=== PATIENT | female | born 1945 | race Caucasian/White ===

== ENCOUNTER → 2017-10-25 10:23 | Outpatient (CLI) | payer MEDICARE, OTHER, SELFPAY ==
--- NOTE | 2017-10-25 | DI.MG.S_ITS ---
BILATERAL DIGITAL SCREENING MAMMOGRAM 3D/2D WITH CAD: 10/25/2017 CLINICAL: Routine screening. Comparison is made to exams dated: 01/06/2014 mammogram, 12/14/2006 mammogram, and 09/30/2005 mammogram - [facility]. The tissue of both breasts is heterogeneously dense. This may lower the sensitivity of mammography. Current study was also evaluated with a Computer Aided Detection (CAD) system. No significant masses, calcifications, or other findings are seen in either breast. There has been no significant interval change. IMPRESSION: NEGATIVE There is no mammographic evidence of malignancy. A 1 year screening mammogram is recommended. This exam was interpreted at Station ID: [id number]. NOTE: For mammograms, a report in lay terms will be sent to the patient. Approximately 15% of breast malignancies will not be visualized mammographically. In the management of a palpable breast mass, a negative mammogram must not discourage biopsy of a clinically suspicious lesion. Electronically Signed By: Juan an/javed:10/26/2017 17:07:42 letter sent: Normal Exam ACR BI-RADS Category 1: Negative [id number]
== END ==
PROVIDERS: Visit Provider Internal Medicine
DX: Z12.31 Encounter for screening mammogram for malignant neoplasm of breast (principal)
CPT/HCPCS: 77063; 77067

== ENCOUNTER → 2017-11-09 10:26 | Outpatient (CLI) | payer MEDICARE, OTHER, SELFPAY ==
[2017-11-09 11:52] LABS: Add Manual Diff / Slide Review NO; Basophils Percent Auto 0.4 % (0-2); Eosinophils Percent Auto 1.6 % (2-4); Hematocrit 42.3 % (36-46); Hemoglobin 13.8 g/dL (12.0-16.0); Lymphocytes Percent Auto 36.8 % (25-40); Mean Corpuscular HGB Conc 32.8 % (30-36); Mean Corpuscular Volume 91.6 fL (80-100); Monocytes Percent Auto 10.5 % (3-14); Neutrophils Absolute Auto 5600 /uL (3000-5900); Neutrophils Percent Auto 50.7 % (50-75); Platelet Count 180 X10^3/uL (150-400); Red Blood Cell Count 4.61 X10^6/uL (4.0-5.2); Red Cell Distribution Width 15.1 % (11.6-14.8); White Blood Cell Count 11.1 X10^3/uL (4.5-11.0)
[2017-11-09 12:00] LABS: Erythrocyte Sedimentation Rate 7 MM/HR (0-20)
[2017-11-09 12:21] LABS: Alanine Aminotransferase 29 IU/L (9-52); Albumin Globulin Ratio 1.8 (1.0-2.8); Alkaline Phosphatase 78 U/L (38-126); Aspartate Aminotransferase 23 IU/L (14-36); BUN Creatinine Ratio 15.6 (6-22); Bilirubin Total 0.5 mg/dL (0.2-1.3); Blood Urea Nitrogen 28 mg/dL (7-17); Carbon Dioxide 25 mmol/L (22-32); Chloride 109 mmol/L (98-107); Cholesterol 172 mg/dL (140-199); Estimated Glomerular Filt Rate 27.7 mL/min (>60); Globulin 2.2 g/dL (1.7-4.1); Glucose 80 mg/dL (80-110); HDL Cholesterol 53 mg/dL (40-60); HEMOLYSIS < 15 (0-50); LDL Cholesterol Calculated 71 mg/dL (<100); Potassium 4.2 mmol/L (3.4-5.1); Sodium 144 mmol/L (137-145); Total Protein 6.2 g/dL (6.3-8.2); Triglycerides 239 mg/dL (35-150)
[2017-11-09 12:27] LABS: C-Reactive Protein Quant < 0.5 mg/dL (<1.0)
[2017-11-09 12:41] LABS: Thyroid Stimulating Hormone 1.51 uIU/mL (0.47-4.68)
[2017-11-16 08:16] LABS: ANCA IGG N
== END ==
PROVIDERS: Visit Provider Internal Medicine
DX: M31.7 Microscopic polyangiitis (principal); I10 Essential (primary) hypertension; R60.9 Edema, unspecified; E78.00 Pure hypercholesterolemia, unspecified
CPT/HCPCS: 36415; 80053; 80061; 84443; 85025; 85651; 86140; 86255

== ENCOUNTER → 2018-07-23 15:52 | Outpatient (CLI) | payer MEDICARE, OTHER, SELFPAY ==
--- NOTE | 2018-07-23 15:55 | DI.RAD.S_ITS ---
PROCEDURE: XR LUMBAR SPINE MIN 4V INDICATIONS: low back pain TECHNIQUE: 5 views of the lumbar spine were acquired. COMPARISON: [facility], , L-SPINE 2-3 VIEWS, 02/13/2009, 14:44. FINDINGS: Bones: 5 nonrib-bearing vertebrae are present. There is normal bony alignment. No vertebral body compression fractures. No suspicious bony lesions. Degenerative disc disease is worsened from the comparison study of February of 2009. There is a greater degree of degenerative disc height reduction and desiccation also facet osteoarthritis from L3 inferiorly has further worsened. Anterolisthesis of L5 on S1 grade one has mildly worsened and is near grade 2. Wedge compression fracture at L4 is stable over time. There is a new superior endplate mild impaction fracture at L3 but age is indeterminate from 2008 forward. L2 shows also slight superior endplate impaction. There are moderately severe wedge compression fractures most prominent at L1 and present to a level slightly lesser degree at T12 and T11. Soft tissues: Overlying bowel gas pattern is normal. No suspicious soft tissue calcifications. Oblique images: No pars defects. IMPRESSION: Worsening degenerative disc disease and facet osteoarthritis, moderately severe over the lower half of the LS-spine. Anterolisthesis is near grade 2 at L5-S1 as a result in addition to the degenerative disc disease that has mildly worsened. Multiple compression fractures have developed since 2008 but their exact chronicity at this time is uncertain. Additionally, interval worsening of a previously present compression fracture could occur as cause of new low back pain. Therefore it may be warranted to obtain MR scanning or nuclear medicine bone scanning to determine whether any of these appears near-term new. Dictated by: Timoteo Ceballos M.D. on 07/23/2018 at 17:17 Approved by: Timoteo Ceballos M.D. on 07/23/2018 at 17:20
== END ==
PROVIDERS: PCP Internal Medicine; Visit Provider Physical Medicine & Rehabilitation
DX: M54.5 Low back pain (principal); M51.37 Other intervertebral disc degeneration, lumbosacral region; M47.817 Spondylosis without myelopathy or radiculopathy, lumbosacral region; M48.56XA Collapsed vertebra, not elsewhere classified, lumbar region, initial encounter for fracture; M48.54XA Collapsed vertebra, not elsewhere classified, thoracic region, initial encounter for fracture; M96.1 Postlaminectomy syndrome, not elsewhere classified; M43.17 Spondylolisthesis, lumbosacral region
CPT/HCPCS: 72110; 99213

== ENCOUNTER → 2018-08-09 08:08 | Outpatient (CLI) | payer MEDICARE, OTHER, SELFPAY ==
--- NOTE | 2018-08-09 08:10 | DI.MRI.S_ITS ---
PROCEDURE: MR LUMBAR SPINE WO CON INDICATIONS: Eval TECHNIQUE: Noncontrast sagittal T1 spin echo and T2 fast echo, sagittal STIR, axial T1 and T2 fast spin echo through the lumbar spine. In cases with scoliosis, additional coronal T2 fast spin echo may be performed. COMPARISON: [facility], MR, L-SPINE WITHOUT CONTRAST, 03/03/2009, 12:12. [facility], MR, L-SPINE WITHOUT CONTRAST, 07/23/2010, 8:36. [facility], MR, L-SPINE WITHOUT CONTRAST, 11/28/2015, 8:04. [facility], CR, XR LUMBAR SPINE MIN 4V, 07/23/2018, 16:01. FINDINGS: Image quality: This examination is limited by involuntary motion artifact. Images are repeated, with some improvement. Alignment and Curvature: There is minimal retrolisthesis seen at the L1-L2 level. Minimal anterolisthesis is seen at L3-L4 and L5-S1. Bone Marrow: Marrow is of normal overall signal. No acute vertebral body compression fractures. Anterior wedge deformities are seen involving the T11, T12, L1, L3, and L4 levels, without significant change from the priors. No abnormal STIR signal can be seen to suggest acute bone marrow edema to suggest an acute fracture. Spinal Cord: Conus medullaris terminates at the L1 level. Visualized cord demonstrates normal signal and size. Paraspinous Soft Tissues: No paravertebral masses. T11-T12: The disc height is well-preserved. Loss of disc signal is seen at this level. Mild to moderate disc bulge is seen. Moderate bilateral neural foraminal narrowing is seen. Moderate central canal narrowing is seen. When comparison is made with the prior examination, these findings are similar. T12-L1: The disc height is well-preserved. Loss of disc signal is seen at this level. Mild endplate irregularity can be seen. There is mild to moderate left-sided and no right-sided neural foraminal narrowing seen. No significant central canal narrowing is seen. When comparison is made with the prior examination, these findings are similar. L1-L2: The disc height is well-preserved. Loss of disc signal is seen at this level. Mild to moderate disc bulge is seen. Moderate to severe bilateral neural foraminal narrowing is seen. No significant central canal narrowing is seen. When comparison is made with the prior examination, these findings are similar. L2-L3: The disc height is well-preserved. Loss of disc signal is seen at this level. Mild to moderate disc bulge is seen. Moderate bilateral neural foraminal narrowing is seen. Mild to moderate to moderate disc bulge is seen. When comparison is made with the prior examination, these findings are similar. L3-L4: Mild loss of disc height is seen. Loss of disc signal is seen. Moderate disc bulge is seen, which is eccentric to the right side. There is moderate to severe bilateral neural foraminal narrowing seen. There is a degree of compression seen upon the exiting nerve roots. Moderate to severe central canal narrowing is seen. The degree of central canal narrowing is improved compared to 2016. L4-L5: Moderate loss of disc height is seen. Loss of disc signal is seen. Moderate to prominent disc bulge is seen, which is eccentric to the right. Moderate facet joint hypertrophy is seen. There is moderate left-sided and moderate to severe right-sided neural foraminal narrowing seen. There is a degree of compression seen upon the exiting right L4 nerve root. At least moderate central canal narrowing is seen. Stable from the prior study. L5-S1: The disc height is well-preserved. Loss of disc signal is seen at this level. Moderate disc bulge is seen, which is eccentric to the right. Moderate to prominent facet hypertrophy is seen, with associated signal within the facet joints themselves. There is severe bilateral neural foraminal narrowing seen. There is a degree of compression seen upon the exiting nerve roots. Moderate to severe central canal narrowing is seen. Stable from the prior study. IMPRESSION: Multiple levels of lumbar spine degenerative changes are seen, which are most prominent inferiorly. The degree of central canal narrowing at L3-L4 has improved compared to 2016. Otherwise, the degrees of degenerative change are considered to be stable. Several levels of anterior wedge deformities are seen, without acute features. Dictated by: Danny Lou M.D. on 08/09/2018 at 10:45 Approved by: Danny oLu M.D. on 08/09/2018 at 10:55
== END ==
PROVIDERS: PCP Internal Medicine; Visit Provider Physical Medicine & Rehabilitation
DX: M47.26 Other spondylosis with radiculopathy, lumbar region (principal); M47.27 Other spondylosis with radiculopathy, lumbosacral region; M48.061 Spinal stenosis, lumbar region without neurogenic claudication; M48.07 Spinal stenosis, lumbosacral region; M96.1 Postlaminectomy syndrome, not elsewhere classified
CPT/HCPCS: 72148; 99214

== ENCOUNTER 2018-08-18 09:58 | Emergency (ER) | payer MEDICARE, OTHER, SELFPAY ==
[2018-08-18 10:20] VITALS: BP 168/108; PULSE 93; RESP 22; TEMP 36.4; O2SAT 99
--- NOTE | 2018-08-18 10:43 | PC.NURSE ---
Pain and bruising to coccyx, states she fell hard on her tailbone and has history of compression fractures. Some pain to cervival spine as well upon palpation, c-collar placed. Laceration and bump to occiput, bleeding controlled.
--- NOTE | 2018-08-18 10:52 | DI.CT.S_ITS ---
PROCEDURE: CT HEAD/BRAIN WO CON INDICATIONS: fall on coumadin TECHNIQUE: Noncontrast 4.5 mm thick angled axial sections acquired from the foramen magnum to the vertex, with coronal and sagittal reformats. For radiation dose reduction, the following was used: automated exposure control, adjustment of mA and/or kV according to patient size. COMPARISON: [facility], MR, BRAIN WITHOUT CONTRAST, 03/28/2012, 13:14. FINDINGS: Image quality: Diagnostic. CSF spaces: Basal cisterns are patent. No extra-axial fluid collections. Ventricles are n mildly prominent with corresponding parenchymal volume loss. Brain: No midline shift. No intracranial masses or hemorrhage. Babin-white matter interface is normal. A small focus of low attenuation within the left basal ganglia may represent prominent perivascular space versus prior lacunar infarct. Moderate-sized areas of low-attenuation are seen within the periventricular and deep white matter of the supratentorial brain. Skull and face: Calvarium and visualized facial bones are intact, without suspicious lesions. Sinuses: Visualized sinuses and mastoids are clear. IMPRESSION: 1. No acute intracranial hemorrhage. 2. Matter chronic small vessel ischemic changes and parenchymal volume loss. Dictated by: Vincent Bourne M.D. on 08/18/2018 at 10:23 Approved by: Vincent Bourne M.D. on 08/18/2018 at 10:26
--- NOTE | 2018-08-18 10:52 | DI.CT.S_ITS ---
PROCEDURE: CT CERVICAL SPINE WO CON INDICATIONS: fall on coumadin TECHNIQUE: Noncontrast 3 mm thick sections acquired from the skull base to the T4 level. Sagittal and coronal reformats were then constructed. For radiation dose reduction, the following was used: automated exposure control, adjustment of mA and/or kV according to patient size. COMPARISON: [facility], THORACIC SPINE 2 VIEWS, 01/19/2017, 15:08. FINDINGS: Image quality: Diagnostic. Bones: The craniocervical, atlantoaxial, and cervicothoracic junctions are well visualized and the alignment through these regions are well-maintained. There is no acute fracture or dislocation of the cervical spine. No suspicious osseous lesions are present. The vertebral body heights throughout the cervical spine are well-maintained. There is slight anterior wedging identified involving the T4 vertebral body, which is not adequately evaluated, but appears to be chronic in nature. The bone mineralization is slightly decreased. Mild to moderate multilevel degenerative changes of the cervical spine are identified. Soft tissues: Prevertebral soft tissues are normal in thickness. No paravertebral hematomas. No apical pneumothoraces. Aortic and carotid artery atherosclerosis is present. IMPRESSION: 1. No acute fractures of the cervical spine. 2. Mild to moderate degenerative changes of the cervical spine. 3. Subtle age-indeterminate T4 compression deformity is likely chronic. Please correlate clinically. Dictated by: Vincent Bourne M.D. on 08/18/2018 at 10:26 Approved by: Vincent Bourne M.D. on 08/18/2018 at 10:33
--- NOTE | 2018-08-18 10:52 | DI.RAD.S_ITS ---
PROCEDURE: XR LUMBAR SPINE 2-3V INDICATIONS: fall pain TECHNIQUE: 3 views of the lumbar spine were acquired. COMPARISON: [facility], CR, XR LUMBAR SPINE MIN 4V, 07/23/2018, 16:01. FINDINGS: Bones: There continues to be compression deformities involving the T11, T12, L1, and L4 vertebral bodies. The degree of the vertebral height loss has not significantly changed in the interim. No acute fractures or no fractures are evident. No suspicious osseous lesions are present. Moderate to severe multilevel degenerative changes of the lumbar spine have not significantly progressed. Soft tissues: A few borderline prominent air-filled small bowel loops are seen within the midabdomen. Clips are seen within the right upper quadrant, suggesting prior cholecystectomy. Postsurgical changes related to right hip arthroplasty are present. There is aortic atherosclerosis. No suspicious soft tissue calcifications. IMPRESSION: 1. Unchanged compression deformities of the thoracolumbar spine, as described. No acute fracture. 2. Moderate to severe degenerative changes of the lumbar spine. 3. Borderline small bowel dilatation may represent ileus. Please correlate clinically. Dictated by: Vincent Bourne M.D. on 08/18/2018 at 10:34 Approved by: Vincent Bourne M.D. on 08/18/2018 at 10:37
--- NOTE | 2018-08-18 10:54 | PC.NURSE ---
bruise to coxxyx and small skin tear bleeding controlled to left shoulder/upper back.
--- NOTE | 2018-08-18 10:59 | ED_ITS ---
HPI - Head Injury General Chief complaint: Head Injury Stated complaint: fell and hit head, has gash Time Seen by Provider: 08/18/18 10:37 Source: patient Mode of arrival: wheelchair Limitations: no limitations History of Present Illness HPI Narrative: Patient is a 72-year-old female who presents with ground level fall on Coumadin last night. She has swelling in her legs at baseline. She was walking fell backwards hitting her head on a dresser. No loss of consciousness. She has chronic neck pain can't really tell if it is worse. She has no numbness or tingling. She does have some back pain more in her lumbar left area. No nausea. MD Complaint: head injury Arrival Conditions: other (Collar placed in ED) Mechanism of Injury: fall Place: home Loss of Consciousness: no Location of injury: occipital Severity: mild Related Data Home Medications Medication Instructions Recorded Confirmed simvastatin [Zocor] 10 mg PO HS #0 03/12/12 08/09/18 acetaminophen 500 mg tablet 500 mg PO Q6H PRN 10/09/17 08/09/18 carvedilol 6.25 mg tablet 6.25 mg PO BID 10/09/17 08/09/18 levofloxacin 500 mg tablet 500 mg PO DAILY 10/09/17 08/09/18 levothyroxine 100 mcg capsule 100 mcg PO DAILY 10/09/17 08/09/18 omeprazole 20 mg capsule,delayed 20 mg PO DAILY 10/09/17 08/09/18 release ondansetron HCl 4 mg tablet 4 mg PO TID PRN 10/09/17 08/09/18 polyethylene glycol 3350 17 gram 17 gram PO DAILY 10/09/17 08/09/18 oral powder packet prednisone 5 mg tablet 5 mg PO DAILY 10/09/17 08/09/18 ranitidine 150 mg capsule 300 mg PO DAILY 10/09/17 08/09/18 topiramate XR 25 mg 50 mg PO DAILY 10/09/17 08/09/18 capsule,extended release 24 hr warfarin 1 mg tablet 2 mg PO DAILY 10/09/17 08/09/18 cholecalciferol (vitamin D3) 1,000 1,000 unit PO DAILY 07/13/18 08/09/18 unit capsule warfarin 1 mg tablet 1 mg PO DAILY 07/13/18 08/09/18 furosemide 40 mg tablet 20 mg PO DAILY PRN 08/09/18 08/09/18 Allergies Allergy/AdvReac Type Severity Reaction Status Date / Time amoxicillin [AMOXICILLIN] Allergy Severe rash and Verified 08/09/18 09:41 diarrhea oxybutynin Allergy Severe tongue Verified 08/09/18 09:41 swells Sulfa (Sulfonamide Allergy Severe fever and Verified 08/09/18 09:41 Antibiotics) rash [SULFA (SULFONAMIDE ANTIBIOTICS)] NSAIDS (Non-Steroidal Allergy Unknown Verified 08/09/18 09:41 Anti-Inflamma [NSAIDS (NON-STEROIDAL ANTI-INFLAMMA] cephalexin Allergy rash Verified 08/09/18 09:41 codeine [CODEINE] AdvReac Mild headache Verified 08/09/18 09:41 duloxetine [From CYMBALTA] AdvReac Mild vomiting Verified 08/09/18 09:41 morphine [MORPHINE] AdvReac Mild vomiting Verified 08/09/18 09:41 nitrofurantoin AdvReac Mild vomiting Verified 08/09/18 09:41 [From MACROBID] carisoprodol AdvReac Verified 08/09/18 09:41 piroxicam [From Feldene] AdvReac Verified 08/09/18 09:41 tolterodine AdvReac Verified 08/09/18 09:41 Review of Systems Review of Systems ROS Unobtainable: All systems reviewed & are unremarkable except as noted in HPI and below Constitutional Denies chills, Denies fever(s), Denies lethargy and Denies weakness Eyes Denies change in vision, Denies eye discharge, Denies irritation and Denies loss of vision ENT Ears, Nose, Mouth, and Throat: Denies change in voice, Denies vertigo, Denies dizziness, Reports neck pain and Denies sore throat Cardiovascular Denies chest pain, Denies irregular heart rhythm, Denies lightheadedness, Denies palpitations, Denies dyspnea, Denies dyspnea on exertion and Denies orthopnea Respiratory Denies cough, Denies dyspnea, Denies dyspnea on exertion and Denies wheezing Gastrointestinal Gastrointestinal: Denies abdominal pain, Denies change in bowel habits, Denies diarrhea, Denies nausea and Denies vomiting Musculoskeletal Reports back pain and Reports neck pain Integumentary/Breasts Denies pruritus, Denies erythema, Denies rash and Denies wounds Comments: Contusion swelling parietal area Neurologic Denies confusion, Denies vertigo, Denies dizziness, Denies loss of vision and Denies weakness Comments: No LOC Psychiatric Denies confusion Endocrine Denies palpitations Allergic/Immunologic Denies wheezing [facility] Medical History DVT (deep venous thrombosis) (Acute) Social History Smoking Status: Unknown if ever smoked Social History Smoking Status: Unknown if ever smoked Exam Initial Vital Signs Initial Vital Signs: Vital Signs Temperature 97.6 F 08/18/18 10:20 Pulse Rate 93 H 08/18/18 10:20 Respiratory Rate 22 08/18/18 10:20 Blood Pressure 168/108 H 08/18/18 10:20 Pulse Oximetry 99 08/18/18 10:20 GENERAL: Alert pleasant elderly no acute distress HEENT: Head contusion left parietal area-no laceration,EOMI, pupils reactive, face symmetric NECK: Mild tenderness--placed in ED CARDIOVASCULAR: Regular rate and rhythm without murmurs, rubs or gallops. RESPIRATORY: Breath sounds equal bilaterally, no wheezes rales or rhonchi. ABDOMEN: Soft, nontender. Normoactive bowel sounds all 4 quadrants. No guarding or rebound. EXTREMITIES: Normal range of motion, no lower extremity swelling bilaterally nonpitting at baseline per patient and have NEUROLOGICAL: Alert and oriented x4.Normal gait and speech. Cranial nerves II through XII grossly intact. Technical Writing Lead/Mgr strength equal bilaterally SKIN: Warm, dry, no laceration, no petechiae, no rashes or lesions. Course Orders Ordered: ED Orders 08/18/18 10:52 CT cervical spine wo con Stat CT head/brain wo con Stat XR lumbar spine 2-3V Stat Discontinued Medications Acetaminophen (Tylenol) 650 mg PO NOW ONE Stop: 08/18/18 10:53 Last Admin: 08/18/18 11:33 Dose: 650 mg Vital Signs - 8 hr 08/18/18 11:28 08/18/18 12:16 Pulse Rate 84 66 Respiratory Rate 29 H 16 Blood Pressure 139/76 Blood Pressure [Left Arm] 163/89 H Pulse Oximetry 98 98 MDM - Head Injury Imaging Data CT scan - head: Radiologist's impression: PROCEDURE: CT HEAD/BRAIN WO CON INDICATIONS: fall on coumadin TECHNIQUE: Noncontrast 4.5 mm thick angled axial sections acquired from the foramen magnum to the vertex, with coronal and sagittal reformats. For radiation dose reduction, the following was used: automated exposure control, adjustment of mA and/or kV according to patient size. COMPARISON: [facility], , BRAIN WITHOUT CONTRAST, 03/28/2012, 13:14. FINDINGS: Image quality: Diagnostic. CSF spaces: Basal cisterns are patent. No extra-axial fluid collections. Ventricles are n mildly prominent with corresponding parenchymal volume loss. Brain: No midline shift. No intracranial masses or hemorrhage. Babin-white matter interface is normal. A small focus of low attenuation within the left basal ganglia may represent prominent perivascular space versus prior lacunar infarct. Moderate- sized areas of low-attenuation are seen within the periventricular and deep white matter of the supratentorial brain. Skull and face: Calvarium and visualized facial bones are intact, without suspicious lesions. Sinuses: Visualized sinuses and mastoids are clear. IMPRESSION: 1. No acute intracranial hemorrhage. 2. Matter chronic small vessel ischemic changes and parenchymal volume loss. Dictated by: Vincent Bourne M.D. on 08/18/2018 at 10:23 ct cervical: Radiologist's impression: PROCEDURE: CT CERVICAL SPINE WO CON INDICATIONS: fall on coumadin TECHNIQUE: Noncontrast 3 mm thick sections acquired from the skull base to the T4 level. Sagittal and coronal reformats were then constructed. For radiation dose reduction, the following was used: automated exposure control, adjustment of mA and/or kV according to patient size. COMPARISON: [facility], , THORACIC SPINE 2 VIEWS, 01/19/2017, 15:08. FINDINGS: Image quality: Diagnostic. Bones: The craniocervical, atlantoaxial, and cervicothoracic junctions are well visualized and the alignment through these regions are well-maintained. There is no acute fracture or dislocation of the cervical spine. No suspicious osseous lesions are present. The vertebral body heights throughout the cervical spine are well- maintained. There is slight anterior wedging identified involving the T4 vertebral body, which is not adequately evaluated, but appears to be chronic in nature. The bone mineralization is slightly decreased. Mild to moderate multilevel degenerative changes of the cervical spine are identified. Soft tissues: Prevertebral soft tissues are normal in thickness. No paravertebral hematomas. No apical pneumothoraces. Aortic and carotid artery atherosclerosis is present. IMPRESSION: 1. No acute fractures of the cervical spine. 2. Mild to moderate degenerative changes of the cervical spine. 3. Subtle age-indeterminate T4 compression deformity is likely chronic. Please correlate clinically. Dictated by: Vincent Bourne M.D. on 08/18/2018 at 10:26 xr lumbar: Radiologist's impression: PROCEDURE: XR LUMBAR SPINE 2-3V INDICATIONS: fall pain TECHNIQUE: 3 views of the lumbar spine were acquired. COMPARISON: [facility], , XR LUMBAR SPINE MIN 4V, 07/23/2018, 16:01. FINDINGS: Bones: There continues to be compression deformities involving the T11, T12, L1, and L4 vertebral bodies. The degree of the vertebral height loss has not significantly changed in the interim. No acute fractures or no fractures are evident. No suspicious osseous lesions are present. Moderate to severe multilevel degenerative changes of the lumbar spine have not significantly progressed. Soft tissues: A few borderline prominent air-filled small bowel loops are seen within the midabdomen. Clips are seen within the right upper quadrant, suggesting prior cholecystectomy. Postsurgical changes related to right hip arthroplasty are present. There is aortic atherosclerosis. No suspicious soft tissue calcifications. IMPRESSION: 1. Unchanged compression deformities of the thoracolumbar spine, as described. No acute fracture. 2. Moderate to severe degenerative changes of the lumbar spine. 3. Borderline small bowel dilatation may represent ileus. Please correlate clinically. Dictated by: Vincent Bourne M.D. on 08/18/2018 at 10:34 Discharge Plan Departure Patient Disposition: Home Clinical Impression: Closed head injury Qualifiers: Encounter type: initial encounter Qualified Code(s): S09.90XA - Unspecified injury of head, initial encounter Discharge Date/Time: 08/18/18 11:55 Interventions: ED Discharge Assessment Last Done: 08/18/18 12:16 Instructions: DI for Closed Head Injury Activity Restrictions/Additional Instructions: *You have been diagnosed with closed head injury *What to do: Monitor for worsening head injuries symptoms. Light activity is encouraged *Continue to take medications as directed Tylenol 500 mg every 6 hours as needed for pain *Follow up with your primary care provider in 2-3 days *Return to ER if you should have increasing confusion, persistent vomiting, weakness, facial drooping or any new, worsening or concerning symptoms Prescriptions: No Action simvastatin [Zocor] 20 MG tablet 10 mg PO HS Qty: 0 RF: 0 warfarin 1 mg tablet 1 mg PO DAILY RF: 0 cholecalciferol (vitamin D3) 1,000 unit capsule 1,000 unit PO DAILY RF: 0 carvedilol 6.25 mg tablet 6.25 mg PO BID RF: 0 polyethylene glycol 3350 17 gram powder in packet 17 gram PO DAILY RF: 0 ondansetron HCl [Zofran] 4 mg tablet 4 mg PO TID PRNRF: 0 prednisone 5 mg tablet 5 mg PO DAILY RF: 0 acetaminophen [Tylenol Extra Strength] 500 mg tablet 500 mg PO Q6H PRNRF: 0 omeprazole 20 mg capsule,delayed release(DR/EC) 20 mg PO DAILY RF: 0 ranitidine HCl 150 mg capsule 300 mg PO DAILY RF: 0 warfarin [Coumadin] 1 mg tablet 2 mg PO DAILY RF: 0 levofloxacin 500 mg tablet 500 mg PO DAILY RF: 0 levothyroxine 100 mcg capsule 100 mcg PO DAILY RF: 0 topiramate 25 mg capsule,extended release 24hr 50 mg PO DAILY RF: 0 furosemide 40 mg tablet 20 mg PO DAILY PRNRF: 0 Referrals: Jamir Garcia MD [Primary Care Provider] -
[2018-08-18 11:28] VITALS: BP 163/89; PULSE 84; RESP 29; O2SAT 98
[2018-08-18] MEDS: ACETAMINOPHEN 325 MG TABLET 650 MG PO (11:33)
[2018-08-18 12:16] VITALS: BP 139/76; PULSE 66; RESP 16; O2SAT 98
--- NOTE | 2018-08-18 12:20 | PC.NURSE ---
1135 small 0.25cm laceration to back of head in center of 4cm lump/contusion. NO repair to be done per Hiren RICHARD. Cleansed with water at this time.
== END 2018-08-18 11:55 | disposition home or self-care (01) ==
PROVIDERS: Emergency Provider Emergency Medicine; PCP Internal Medicine
DX: S00.83XA Contusion of other part of head, initial encounter (principal); S01.81XA Laceration without foreign body of other part of head, initial encounter; S30.0XXA Contusion of lower back and pelvis, initial encounter; M54.2 Cervicalgia; W19.XXXA Unspecified fall, initial encounter; Z79.01 Long term (current) use of anticoagulants
CPT/HCPCS: 70450; 72100; 72125; 99283; 99284

== ENCOUNTER → 2018-09-04 14:55 | Outpatient (CLI) | payer MEDICARE, OTHER, SELFPAY ==
[2018-09-04 16:11] LABS: Blood Urea Nitrogen 32 mg/dL (7-17); Estimated Glomerular Filt Rate 24.4 mL/min (>60)
--- NOTE | 2018-09-11 15:27 | PC.NURSE ---
Patient requested per telephone to know if her lab results for BUN and Crea were in. This nurse confirmed for her that results are on record and that she should speak with Dr. Garcia about the results at her appt. tomorrow.
== END ==
PROVIDERS: PCP Internal Medicine; Visit Provider Internal Medicine
DX: M81.0 Age-related osteoporosis without current pathological fracture (principal)
CPT/HCPCS: 36415; 82565; 84520

== ENCOUNTER → 2018-09-26 11:43 | Outpatient (CLI) | payer MEDICARE, OTHER, SELFPAY ==
[2018-09-26 13:34] LABS: BUN Creatinine Ratio 18.9 (6-22); Blood Urea Nitrogen 36 mg/dL (7-17); Estimated Glomerular Filt Rate 25.9 mL/min (>60)
== END ==
PROVIDERS: PCP Internal Medicine; Visit Provider Internal Medicine
DX: M81.0 Age-related osteoporosis without current pathological fracture (principal)
CPT/HCPCS: 36415; 82565; 84520

== ENCOUNTER → 2018-10-17 16:19 | Outpatient (CLI) | payer MEDICARE, OTHER, SELFPAY ==
--- NOTE | 2018-10-17 16:26 | DI.US.S_ITS ---
PROCEDURE: US PERIPH VENOUS LOW EXTREM RT INDICATIONS: PAIN IN RIGHT LEG TECHNIQUE: Real-time imaging, as well as color and pulse Doppler interrogation, were performed of the lower extremity deep veins from the inguinal ligament to the popliteal fossa. COMPARISON: None. FINDINGS: The common femoral, femoral and popliteal veins are normally compressible, and free of intraluminal thrombus. Color and pulse Doppler demonstrate normal phasic intraluminal flow. There is normal augmentation response to distal compression maneuver. IMPRESSION: No evidence of DVT, right lower extremity Dictated by: Brandon Pichardo M.D. on 10/17/2018 at 17:33 Approved by: Brandon Pichardo M.D. on 10/17/2018 at 17:33
== END ==
PROVIDERS: PCP Internal Medicine; Visit Provider Physician Assistant
DX: M79.604 Pain in right leg (principal)
CPT/HCPCS: 93971

== ENCOUNTER 2018-11-29 10:30 | Outpatient (RCR) | payer MEDICARE, OTHER, SELFPAY ==
--- NOTE | 2018-10-17 12:10 | PT.OIE ---
Current Diagnoses Spondylolisthesis, lumbar region (10/10/18) Age-related osteoporosis without current pathological fracture (10/10/18) Postlaminectomy syndrome, not elsewhere classified (10/10/18) Past Medical History (Last Reviewed 08/18/18 @ 10:58 by Cora Maradiaga DO) DVT (deep venous thrombosis) (Acute) Provider Visit Care Team Role Provider Type Jamir Garcia MD Primary Care Provider Physician Specialty: Internal Medicine Address: [address] [place] [address], [id number] Email: Romie Darling DO Attending Provider Physician Specialty: Physiatry Pain Management Address: [address] [place] [address], [id number] Email: Physical Therapy Initial Evaluation PT-OP-A Visit Information Start: 10/10/18 11:38 Freq: Status: Active Protocol: Document 10/10/18 11:36 [facility] (Rec: 10/17/18 11:51 [facility] [id number]) Out-Patient Physical Therapy Visit Information Visit Information Visit Type Initial Evaluation Visit Note 72 year old female who underwent a lumbar laminectomy 1 year ago at the L3-4 level due to spondylothesis. She is experiencing continued pain that is severe and intermittent. She has difficulty with ADL's due to pain and pain prevents her from walking even short distances. She has a history of a right sided hip replacement and feels as if her right side gives out on her. She also presents with significant edema right greater than left LE Visit Start Time 11:30 Visit Stop Time 12:15 Total Visit Minutes 45 Visit Number 1 Number of AUTOMOTIVE PARTS ADVISOR Visits 0 Evaluation Information Evaluation Date 10/10/18 PT-OP-B Current Condition Start: 10/10/18 11:38 Freq: Status: Active Protocol: Document 10/10/18 11:38 [facility] (Rec: 10/10/18 11:48 [facility] [id number]) Current Condition History of Current Condition History of Current Condition Hx of osteoporesis and lumbar laminectomy at L3-4 one year ago. No history of injury but notes she has weakness in her low back with low tolerance for activity due to pain. She uses her fww all the time for support due to poor blaance. 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 She is on a lot of medications including prednisone for over 10 years ago. Hx of right hip replacement 7-8 years ago. hx of fibromyalgia Pt has increased pain with ADL's. Pain at rest in recliner is 1- 2/10 but with activites such as making the bed or unloading the dump truck driver her pain increased to 6-7/10 Treatment Goals Patient/Caregiver Goals Pt would like to progress to using her cane PT-OP-J Posture/Palpation/Skin Start: 10/17/18 11:35 Freq: Status: Active Protocol: Document 10/10/18 11:36 [facility] (Rec: 10/17/18 11:51 [facility] [id number]) Posture Evaluation Position Standing Evaluation View Posterior Head/C-Spine Posture Flexed T-Spine Posture Increased Kyphosis L-Spine Posture Increased Lordosis Weight Distribution Weight Shifted Left Palpation Assessment Location Two Palpation Location LE calf and carrasco region Palpation Findings Edema Palpation Details pitting edema right greater than left in the LE ankle to knee One Palpation Location lumbar paraspinals Palpation Findings Soft Tissue Tightness Spasm PT-OP-K Range of Motion Start: 10/17/18 11:35 Freq: Status: Active Protocol: Document 10/10/18 11:36 [facility] (Rec: 10/17/18 11:51 [facility] [id number]) Lumbar Spine Range of Motion Lumbar Spine Active Testing Position Sitting Flexion 20 Extension 0 Rotation Left 15 Rotation Right 15 Lateral Flexion Left 10 Lateral Flexion Right 10 ROM Limitations Soft Tissue Tightness Muscle Weakness Muscle Tone Pain Comments very limited in lumbar spine ROM, ROM assessed in sitting at the patient is off balance in a standing position Hip Goniometric Range of Motion Hip Left Hip ROM WFL No Testing Position Supine Flexion w/Knee Flexed 100 Straight Leg Raise 70 Right Hip ROM WFL No Testing Position Supine Flexion w/Knee Flexed 90 Straight Leg Raise 60 PT-OP-M Strength Start: 10/17/18 11:35 Freq: Status: Active Protocol: Document 10/10/18 11:36 [facility] (Rec: 10/17/18 11:51 [facility] [email or web address]) Trunk Strength Trunk Manual Muscle Testing Testing Position Supine Flexion 2+ Poor+ Core Stabilization poor core stabilization and Nina does not have the ability to provide a transverse abdominal facilitation Hip Strength Hip Manual Muscle Testing Right Flexion (L2) 2+ Poor+ Extension (S1) 2+ Poor+ Abduction 2+ Poor+ External Rotation 2+ Poor+ Internal Rotation 2+ Poor+ Left Flexion (L2) 3 Fair Extension (S1) 3 Fair Abduction 3 Fair External Rotation 3 Fair Internal Rotation 3 Fair Knee Strength Knee Manual Muscle Testing Right Flexion (S2) 2+ Poor+ Extension (L3) 2+ Poor+ Reason Not Measured Muscle Tone Comments unable to perform a quad set on the right PT-OP-Q Treatments Start: 10/17/18 11:35 Freq: Status: Active Protocol: Document 10/10/18 11:36 [facility] (Rec: 10/17/18 11:51 [facility] [id number]) Self-Care/Home Management Treatment Education Patient Education Body Mechanics Joint Protection Pain Management Other Education pt also given instructions for low back pain relief in her low back by laying on her back with her legs up over a bolster and ankle pumping for LE edema PT-OP-T Assessment and Plan Start: 10/17/18 11:35 Freq: Status: Active Protocol: Document 10/10/18 11:36 [facility] (Rec: 10/17/18 11:51 [facility] [id number]) Physical Therapy Assessment Rehab Potential Rehabilitation Potential Good Evaluation Complexity Number of Personal Factors/Comorbidities 1-2 Number of Body Systems Impaired 3 Clinical Presentation at Evaluation Evolving Impairments Impairments Activity Tolerance Balance Pain Posture ROM Soft Tissue Mobility Strength Tone Other Impairments Limited ADL's due to poor balance, strength, mobility Goals Five Impairment Nina is unable to get herself up off the floor Dry Transfer Worker Goal (LTG) Nina demonstrates the ability to transfer herself safely up off the floor LTG Duration 8 weeks Four Impairment pain 7-8/10 with ADL's such as unloading the dump truck driver or making a bed Dry Transfer Worker Goal (LTG) Decrease pain with ADL's from 7-8/10 to 4-6/10 and Nina is educated in proper body mechanics for these activities to assist in decreasing her pain LTG Duration 8 weeks Three Impairment Nina has poor core activation and is unable to facilitate her TA Short Term Goal (STG) Nina is able to recruit her Transverse abdominal muscle for improved support of her core in a supine position STG Duration 4 weeks Dry Transfer Worker Goal (LTG) Nina is able to recruit her abdominal muscles with both a SLR and sit to stand transitional activity to improve lumbar support and decrease pain with transitional activities LTG Duration 8 weeks Two Impairment poor lumbar spine ROM and mobility Lumbar spine flexion limited to 20 deg Dry Transfer Worker Goal (LTG) Nina is able to improve her lumbar spine ROM tolerance for lumbar flexion by 10 degrees or greater to tolerate a home stretching program and decrease pain LTG Duration 8 weeks plus One Impairment LE weakness Right > Left Short Term Goal (STG) Stephanie is able to recruit her right quadriceps and perform a straight leg raise on the right LE STG Duration 4 weeks Fci Goal (LTG) With strengthening exercises Rhea is able to put weight through her right LE and perform a sit-stand with even weight bearing LTG Duration 8 weeks plus Assessment Summary Assessment Nina is referred to Physical therapy with continued LBP following a lumbar laminectomy at L3-4 one year ago. She has a hx of osteoporesis. No history of lumbar injury but notes she has had weakness in her low back with low tolerance for activity due to pain. She uses her fww all the time for support due to poor balance. 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 She is on a lot of medications including prednisone for over 10 years ago. Hx of right hip replacement 7-8 years ago. hx of fibromyalgia Pt has increased pain with ADL's. Pain at rest in recliner is 1- 2/10 but with activites such as making the bed or unloading the dump truck driver her pain increased to 6-7/10 Examination today was limited due to poor tolerance for most positions and for most activities. She sat for her ROM measurements and she is very limited in lumbar ROM. She is most limited in lumbar flexion and she tends to arch her lumbar spine for her neutral posture. With standing she is shifted onto her left leg and it is difficult for her to take weight onto the right LE. MMT reveals 2+/5 strength for the right hip and generally 3/5 strength left side. She also presents with significant edema in the right L left LE from ankles to the knee. Her goals include improving her tolerance for ADL's and being able to get up off the floor. Treatment will focus on transfer training, strengthening, body mechanics, ROM and functional positioning and activities. Physical Therapy Plan Frequency and Duration Frequency of Treatment 2x/Week Duration of Treatment 8 weeks Plan of Care Start Date 10/10/18 Plan of Care End Date 12/05/18 Therapeutic Interventions Therapeutic Interventions Balance Training Gait Training Home Exercise Program Neuromuscular Re-education Patient/Caregiver Education Self-Care/Home Management Soft Tissue Mobilization Therapeutic Exercises Next Visit Focus/Plan Next Note Type Treatment Note Next Visit Plan Begin on the recumbent bike next visit and begin a gentle strengthening program for the LE and core
--- NOTE | 2018-10-29 15:54 | PT.OTN ---
Current Diagnoses Spondylolisthesis, lumbar region (10/29/18) Age-related osteoporosis without current pathological fracture (10/29/18) Postlaminectomy syndrome, not elsewhere classified (10/29/18) Physical Therapy Treatment Note PT-OP-A Visit Information Start: 10/10/18 11:38 Freq: Status: Active Protocol: Document 10/29/18 14:18 LRN (Rec: 10/29/18 15:05 LRN [id number]) Out-Patient Physical Therapy Visit Information Visit Information Visit Type Treatment Note Visit Note 72 year old female who underwent a lumbar laminectomy 1 year ago at the L3-4 level due to spondylothesis. She is experiencing continued pain that is severe and intermittent. She has difficulty with ADL's due to pain and pain prevents her from walking even short distances. She has a history of a right sided hip replacement and feels as if her right side gives out on her. She also presents with significant edema right greater than left LE Visit Start Time 14:18 Visit Stop Time 15:00 Total Visit Minutes 42 Visit Number 2 Number of INSIDE SALES ACCOUNT REPRESENTATIVE Visits 0 Evaluation Information Evaluation Date 10/10/18 Precautions Precautions Autoimmune disease ( microscopic polyangiitis) Lumbar lami 1 yr ago R BRANDON PT-OP-B Current Condition Start: 10/10/18 11:38 Freq: Status: Active Protocol: Document 10/10/18 11:38 AMH (Rec: 10/10/18 11:48 AMH [id number]) Current Condition History of Current Condition History of Current Condition Hx of osteoporesis and lumbar laminectomy at L3-4 one year ago. No history of injury but notes she has weakness in her low back with low tolerance for activity due to pain. She uses her fww all the time for support due to poor blaance. 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 She is on a lot of medications including prednisone for over 10 years ago. Hx of right hip replacement 7-8 years ago. hx of fibromyalgia Pt has increased pain with ADL's. Pain at rest in recliner is 1- 2/10 but with activites such as making the bed or unloading the investigations consultant her pain increased to 6-7/10 Treatment Goals Patient/Caregiver Goals Pt would like to progress to using her cane PT-OP-C Subjective Start: 10/10/18 11:38 Freq: Status: Active Protocol: Document 10/29/18 14:18 LRN (Rec: 10/29/18 15:05 LRN [id number]) OP-PT Subjective Patient Comments Patient Comments Got an infection in the leg a few days after evaluation, so has been on her back with legs up. Back pain is not worse. PT-OP-J Posture/Palpation/Skin Start: 10/17/18 11:35 Freq: Status: Active Protocol: Document 10/10/18 11:36 AMH (Rec: 10/17/18 11:51 AMH [email or web address]) Posture Evaluation Position Standing Evaluation View Posterior Head/C-Spine Posture Flexed T-Spine Posture Increased Kyphosis L-Spine Posture Increased Lordosis Weight Distribution Weight Shifted Left Palpation Assessment Location Two Palpation Location LE calf and carrasco region Palpation Findings Edema Palpation Details pitting edema right greater than left in the LE ankle to knee One Palpation Location lumbar paraspinals Palpation Findings Soft Tissue Tightness Spasm PT-OP-K Range of Motion Start: 10/17/18 11:35 Freq: Status: Active Protocol: Document 10/10/18 11:36 AMH (Rec: 10/17/18 11:51 AMH [email or web address]) Lumbar Spine Range of Motion Lumbar Spine Active Testing Position Sitting Flexion 20 Extension 0 Rotation Left 15 Rotation Right 15 Lateral Flexion Left 10 Lateral Flexion Right 10 ROM Limitations Soft Tissue Tightness Muscle Weakness Muscle Tone Pain Comments very limited in lumbar spine ROM, ROM assessed in sitting at the patient is off balance in a standing position Hip Goniometric Range of Motion Hip Left Hip ROM WFL No Testing Position Supine Flexion w/Knee Flexed 100 Straight Leg Raise 70 Right Hip ROM WFL No Testing Position Supine Flexion w/Knee Flexed 90 Straight Leg Raise 60 PT-OP-M Strength Start: 10/17/18 11:35 Freq: Status: Active Protocol: Document 10/10/18 11:36 AMH (Rec: 10/17/18 11:51 AMH [email or web address]) Trunk Strength Trunk Manual Muscle Testing Testing Position Supine Flexion 2+ Poor+ Core Stabilization poor core stabilization and Nina does not have the ability to provide a transverse abdominal faciliation Hip Strength Hip Manual Muscle Testing Right Flexion (L2) 2+ Poor+ Extension (S1) 2+ Poor+ Abduction 2+ Poor+ External Rotation 2+ Poor+ Internal Rotation 2+ Poor+ Left Flexion (L2) 3 Fair Extension (S1) 3 Fair Abduction 3 Fair External Rotation 3 Fair Internal Rotation 3 Fair Knee Strength Knee Manual Muscle Testing Right Flexion (S2) 2+ Poor+ Extension (L3) 2+ Poor+ Reason Not Measured Muscle Tone Comments unable to perform a quad set on the right PT-OP-Q Treatments Start: 10/17/18 11:35 Freq: Status: Active Protocol: Document 10/29/18 14:18 LRN (Rec: 10/29/18 15:05 LRN [id number]) Therapeutic Exercises Supine Exercises KTC stretch Supine Exercise Name Semi-reclined KTC stretch ( limited stretch to the R side) Side bilateral Reps/Minutes 6 x 10 sec holds Comments Pt on MH during ex Gluteal strengthening Supine Exercise Name Semi-reclined Buttock squeezes Side bilateral Reps/Minutes 10x Comments Pt on MH during ex SAQ Supine Exercise Name Semi-reclined SAQ Side bilateral Reps/Minutes 8 x 10 sec holds Comments Pt on MH during ex knee to chest (90/90) Supine Exercise Name Semi-reclined heel slides Reps/Minutes 9x each alternating legs Comments Pt semi-reclined, Pt on MH during ex Ankle DF Supine Exercise Name Semi-reclined, legs on bolster , ankle pumps Reps/Minutes 30x Comments Pt on MH during ex Self-Care/Home Management Treatment Education Patient Education Home Exercise Program Activities Self-Care/Home Management Activities Issued & reviewed HEP: ankle pumps, heel slides, SAQ, Glut sets, SKTC HEP. PT-OP-T Assessment and Plan Start: 10/17/18 11:35 Freq: Status: Active Protocol: Document 10/29/18 14:18 LRN (Rec: 10/29/18 15:05 LRN [id number]) Physical Therapy Assessment Assessment Summary Assessment Pt is extremely weak in LE's. Her priority is to decrease lumbar pain therefore held recumbent bike. Poor tolerance to exercise, poor core control. Pt felt MH was too warm after ex; therefore extra padding is needed or decrease time on MH. Physical Therapy Plan Frequency and Duration Frequency of Treatment 2x/Week Duration of Treatment 8 weeks Plan of Care Start Date 10/10/18 Plan of Care End Date 12/05/18 Next Visit Focus/Plan Next Note Type Treatment Note Next Visit Plan If pt back is less sore consider beginning on the recumbent bike next. Progress gentle strengthening program for the LE and core. Review pt's current HEP if she remembers to bring.
--- NOTE | 2018-11-05 06:40 | PT.OTN ---
Current Diagnoses Spondylolisthesis, lumbar region (11/01/18) Age-related osteoporosis without current pathological fracture (11/01/18) Postlaminectomy syndrome, not elsewhere classified (11/01/18) Physical Therapy Treatment Note PT-OP-A Visit Information Start: 10/10/18 11:38 Freq: Status: Active Protocol: Document 11/01/18 10:30 AMH (Rec: 11/05/18 06:40 AMH [email or web address]) Out-Patient Physical Therapy Visit Information Visit Information Visit Type Treatment Note Visit Start Time 10:30 Visit Stop Time 11:15 Total Visit Minutes 45 Visit Number 3 Number of DRY CLEANING COUNTER CLERK Visits 0 PT-OP-B Current Condition Start: 10/10/18 11:38 Freq: Status: Active Protocol: Document 10/10/18 11:38 AMH (Rec: 10/10/18 11:48 AMH [id number]) Current Condition History of Current Condition History of Current Condition Hx of osteoporesis and lumbar laminectomy at L3-4 one year ago. No history of injury but notes she has weakness in her low back with low tolerance for activity due to pain. She uses her fww all the time for support due to poor blaance. 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 She is on a lot of medications including prednisone for over 10 years ago. Hx of right hip replacement 7-8 years ago. hx of fibromyalgia Pt has increased pain with ADL's. Pain at rest in recliner is 1- 2/10 but with activites such as making the bed or unloading the manager creative services her pain increased to 6-7/10 Treatment Goals Patient/Caregiver Goals Pt would like to progress to using her cane PT-OP-C Subjective Start: 10/10/18 11:38 Freq: Status: Active Protocol: Document 11/01/18 10:30 AMH (Rec: 11/05/18 06:40 AMH [email or web address]) OP-PT Subjective Patient Comments Patient Comments pt reports she had to miss the last tiffanie due to cellulitis in her right leg PT-OP-J Posture/Palpation/Skin Start: 10/17/18 11:35 Freq: Status: Active Protocol: Document 10/10/18 11:36 AMH (Rec: 10/17/18 11:51 AMH [email or web address]) Posture Evaluation Position Standing Evaluation View Posterior Head/C-Spine Posture Flexed T-Spine Posture Increased Kyphosis L-Spine Posture Increased Lordosis Weight Distribution Weight Shifted Left Palpation Assessment Location Two Palpation Location LE calf and carrasco region Palpation Findings Edema Palpation Details pitting edema right greater than left in the LE ankle to knee One Palpation Location lumbar paraspinals Palpation Findings Soft Tissue Tightness Spasm PT-OP-K Range of Motion Start: 10/17/18 11:35 Freq: Status: Active Protocol: Document 10/10/18 11:36 AMH (Rec: 10/17/18 11:51 AMH [email or web address]) Lumbar Spine Range of Motion Lumbar Spine Active Testing Position Sitting Flexion 20 Extension 0 Rotation Left 15 Rotation Right 15 Lateral Flexion Left 10 Lateral Flexion Right 10 ROM Limitations Soft Tissue Tightness Muscle Weakness Muscle Tone Pain Comments very limited in lumbar spine ROM, ROM assessed in sitting at the patient is off balance in a standing position Hip Goniometric Range of Motion Hip Left Hip ROM WFL No Testing Position Supine Flexion w/Knee Flexed 100 Straight Leg Raise 70 Right Hip ROM WFL No Testing Position Supine Flexion w/Knee Flexed 90 Straight Leg Raise 60 PT-OP-M Strength Start: 10/17/18 11:35 Freq: Status: Active Protocol: Document 10/10/18 11:36 AMH (Rec: 10/17/18 11:51 AMH [email or web address]) Trunk Strength Trunk Manual Muscle Testing Testing Position Supine Flexion 2+ Poor+ Core Stabilization poor core stabilization and Nina does not have the ability to provide a transverse abdominal faciliation Hip Strength Hip Manual Muscle Testing Right Flexion (L2) 2+ Poor+ Extension (S1) 2+ Poor+ Abduction 2+ Poor+ External Rotation 2+ Poor+ Internal Rotation 2+ Poor+ Left Flexion (L2) 3 Fair Extension (S1) 3 Fair Abduction 3 Fair External Rotation 3 Fair Internal Rotation 3 Fair Knee Strength Knee Manual Muscle Testing Right Flexion (S2) 2+ Poor+ Extension (L3) 2+ Poor+ Reason Not Measured Muscle Tone Comments unable to perform a quad set on the right PT-OP-Q Treatments Start: 10/17/18 11:35 Freq: Status: Active Protocol: Document 11/01/18 10:30 AMH (Rec: 11/05/18 06:40 AMH [email or web address]) Cardio Equipment Recumbent Elliptical (FullStory) Duration (Minutes) 5 Resistance 0 Therapeutic Exercises Supine Exercises 2 Supine Exercise Name quad sets Reps/Minutes x 10 5 sec hold 1 Supine Exercise Name assisted lumbar flexion with 55 cm ball (ball rolls) Reps/Minutes x 20 KTC stretch Supine Exercise Name Semi-reclined KTC stretch ( limited stretch to the R side) Side bilateral Reps/Minutes 6 x 10 sec holds Comments Pt on MH during ex Gluteal strengthening Supine Exercise Name Semi-reclined Buttock squeezes Side bilateral Reps/Minutes 10x Comments Pt on MH during ex SAQ Supine Exercise Name Semi-reclined SAQ Side bilateral Reps/Minutes 8 x 10 sec holds Comments Pt on MH during ex knee to chest (90/90) Supine Exercise Name Semi-reclined heel slides Reps/Minutes 9x each alternating legs Comments Pt semi-reclined, Pt on MH during ex Ankle DF Supine Exercise Name Semi-reclined, legs on bolster , ankle pumps Reps/Minutes 30x Comments Pt on MH during ex Standing Exercises 3 Standing Exercise Name standing calf raises and toe lifts Reps/Minutes x 20 2 Standing Exercise Name standing calf stretch in lunge position Reps/Minutes 2 x 30 sec 1 Standing Exercise Name standing ALFREDO calf stretch in parallel bars Reps/Minutes 2 x 30 sec Self-Care/Home Management Treatment Education Patient Education Home Exercise Program PT-OP-T Assessment and Plan Start: 10/17/18 11:35 Freq: Status: Active Protocol: Document 11/01/18 10:30 AMH (Rec: 11/05/18 06:40 AMH [email or web address]) Physical Therapy Assessment Assessment Summary Assessment Very weak but did tolerate Biodex today and a few standing stretches and ankle mobility. The rest we did in a semi reclined position Physical Therapy Plan Frequency and Duration Frequency of Treatment 2x/Week Duration of Treatment 8 weeks Plan of Care Start Date 10/10/18 Plan of Care End Date 12/05/18 Next Visit Focus/Plan Next Note Type Treatment Note Next Visit Plan progress gentle strenghtening program, ankle mobility and core stabilization
--- NOTE | 2018-11-08 13:46 | PT.OTN ---
Current Diagnoses Spondylolisthesis, lumbar region (11/08/18) Age-related osteoporosis without current pathological fracture (11/08/18) Postlaminectomy syndrome, not elsewhere classified (11/08/18) Physical Therapy Treatment Note PT-OP-A Visit Information Start: 10/10/18 11:38 Freq: Status: Active Protocol: Document 11/08/18 12:55 HH (Rec: 11/08/18 13:46 HH [email or web address]) Out-Patient Physical Therapy Visit Information Visit Information Visit Type Treatment Note Visit Start Time 12:55 Visit Stop Time 13:45 Total Visit Minutes 50 Visit Number 4 Number of BUSINESS INSURANCE AGENT Visits 0 PT-OP-B Current Condition Start: 10/10/18 11:38 Freq: Status: Active Protocol: Document 10/10/18 11:38 AMH (Rec: 10/10/18 11:48 AMH [id number]) Current Condition History of Current Condition History of Current Condition Hx of osteoporesis and lumbar laminectomy at L3-4 one year ago. No history of injury but notes she has weakness in her low back with low tolerance for activity due to pain. She uses her fww all the time for support due to poor blaance. 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 She is on a lot of medications including prednisone for over 10 years ago. Hx of right hip replacement 7-8 years ago. hx of fibromyalgia Pt has increased pain with ADL's. Pain at rest in recliner is 1- 2/10 but with activites such as making the bed or unloading the photogrammetric compilation specialist her pain increased to 6-7/10 Treatment Goals Patient/Caregiver Goals Pt would like to progress to using her cane PT-OP-C Subjective Start: 10/10/18 11:38 Freq: Status: Active Protocol: Document 11/08/18 12:55 HH (Rec: 11/08/18 13:46 HH [email or web address]) OP-PT Subjective Patient Comments Patient Comments im recovering from my cellulitis still thats why i cancelled my appt. But chase been feeling better and i was able to drive for the first time today after many years. My back still bothers me. PT-OP-J Posture/Palpation/Skin Start: 10/17/18 11:35 Freq: Status: Active Protocol: Document 10/10/18 11:36 AMH (Rec: 10/17/18 11:51 AMH [email or web address]) Posture Evaluation Position Standing Evaluation View Posterior Head/C-Spine Posture Flexed T-Spine Posture Increased Kyphosis L-Spine Posture Increased Lordosis Weight Distribution Weight Shifted Left Palpation Assessment Location Two Palpation Location LE calf and carrasco region Palpation Findings Edema Palpation Details pitting edema right greater than left in the LE ankle to knee One Palpation Location lumbar paraspinals Palpation Findings Soft Tissue Tightness Spasm PT-OP-K Range of Motion Start: 10/17/18 11:35 Freq: Status: Active Protocol: Document 10/10/18 11:36 AMH (Rec: 10/17/18 11:51 AMH [email or web address]) Lumbar Spine Range of Motion Lumbar Spine Active Testing Position Sitting Flexion 20 Extension 0 Rotation Left 15 Rotation Right 15 Lateral Flexion Left 10 Lateral Flexion Right 10 ROM Limitations Soft Tissue Tightness Muscle Weakness Muscle Tone Pain Comments very limited in lumbar spine ROM, ROM assessed in sitting at the patient is off balance in a standing position Hip Goniometric Range of Motion Hip Left Hip ROM WFL No Testing Position Supine Flexion w/Knee Flexed 100 Straight Leg Raise 70 Right Hip ROM WFL No Testing Position Supine Flexion w/Knee Flexed 90 Straight Leg Raise 60 PT-OP-M Strength Start: 10/17/18 11:35 Freq: Status: Active Protocol: Document 10/10/18 11:36 AMH (Rec: 10/17/18 11:51 AMH [email or web address]) Trunk Strength Trunk Manual Muscle Testing Testing Position Supine Flexion 2+ Poor+ Core Stabilization poor core stabilization and Nina does not have the ability to provide a transverse abdominal faciliation Hip Strength Hip Manual Muscle Testing Right Flexion (L2) 2+ Poor+ Extension (S1) 2+ Poor+ Abduction 2+ Poor+ External Rotation 2+ Poor+ Internal Rotation 2+ Poor+ Left Flexion (L2) 3 Fair Extension (S1) 3 Fair Abduction 3 Fair External Rotation 3 Fair Internal Rotation 3 Fair Knee Strength Knee Manual Muscle Testing Right Flexion (S2) 2+ Poor+ Extension (L3) 2+ Poor+ Reason Not Measured Muscle Tone Comments unable to perform a quad set on the right PT-OP-Q Treatments Start: 10/17/18 11:35 Freq: Status: Active Protocol: Document 11/08/18 12:55 HH (Rec: 11/08/18 13:46 HH [email or web address]) Cardio Equipment Recumbent Bicycle Duration (Minutes) 5 Resistance 0 Seat Position 5 Therapeutic Exercises Supine Exercises 2 Supine Exercise Name quad sets Reps/Minutes x 10 5 sec hold 1 Supine Exercise Name assisted lumbar flexion with 55 cm ball (ball rolls) Reps/Minutes x 20 Sitting Exercises seated shd extension Equipment Used pvc Reps/Minutes 5 x2 Comments cues on neutral spine resisted trunk ext Sitting Exercise Name isometric Resistance manual resistance Reps/Minutes 5 mins Comments cues on trunk extensors engagement resisted trunk flexion Sitting Exercise Name isometric Resistance manual resistance Reps/Minutes 5 mins Comments cues on abdominal engagement seated SB and rotation Equipment Used layton therapy ball Reps/Minutes 5 mins Comments diagonal direction seated trunk flexion Equipment Used layton therapy ball Reps/Minutes 5 mins Comments forward trunk and shd flexion Manual Therapy Treatment Soft Tissue Mobilization lumbar paraspinals Body Location seated Mobilization Type Rolling Strain/Counterstrain Sustained Pressure Trigger Point Release Intensity/Depth Superficial Body Position Sitting PT-OP-R Modalities Start: 10/17/18 11:35 Freq: Status: Active Protocol: Document 11/08/18 12:55 HH (Rec: 11/08/18 13:46 HH [email or web address]) Hot Pack/Cold Pack Treatment Hot Pack Location lumbar Patient Position Supine Treatment Duration (minutes) 10 Patient Tolerance Good Comments elevated head of table PT-OP-T Assessment and Plan Start: 10/17/18 11:35 Freq: Status: Active Protocol: Document 11/08/18 12:55 HH (Rec: 11/08/18 13:46 HH [email or web address]) Physical Therapy Assessment Assessment Summary Assessment pt melony tx well and report of pain relief after AROM and STM on paraspinals. Physical Therapy Plan Next Visit Focus/Plan Next Note Type Treatment Note Next Visit Plan progress gentle strenghtening program, ankle mobility and core stabilization
--- NOTE | 2018-11-21 14:21 | PT.OTN ---
Current Diagnoses Spondylolisthesis, lumbar region (11/21/18) Age-related osteoporosis without current pathological fracture (11/21/18) Postlaminectomy syndrome, not elsewhere classified (11/21/18) Physical Therapy Treatment Note PT-OP-A Visit Information Start: 10/10/18 11:38 Freq: Status: Active Protocol: Document 11/08/18 12:55 HH (Rec: 11/08/18 13:46 HH [email or web address]) Out-Patient Physical Therapy Visit Information Visit Information Visit Type Treatment Note Visit Start Time 12:55 Visit Stop Time 13:45 Total Visit Minutes 50 Visit Number 4 Number of CARBURETOR SPECIALIST Visits 0 PT-OP-B Current Condition Start: 10/10/18 11:38 Freq: Status: Active Protocol: Document 10/10/18 11:38 [facility] (Rec: 10/10/18 11:48 [facility] [id number]) Current Condition History of Current Condition History of Current Condition Hx of osteoporesis and lumbar laminectomy at L3-4 one year ago. No history of injury but notes she has weakness in her low back with low tolerance for activity due to pain. She uses her fww all the time for support due to poor blaance. 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 She is on a lot of medications including prednisone for over 10 years ago. Hx of right hip replacement 7-8 years ago. hx of fibromyalgia Pt has increased pain with ADL's. Pain at rest in recliner is 1- 2/10 but with activites such as making the bed or unloading the binding bench worker her pain increased to 6-7/10 Treatment Goals Patient/Caregiver Goals Pt would like to progress to using her cane PT-OP-C Subjective Start: 10/10/18 11:38 Freq: Status: Active Protocol: Document 11/21/18 14:10 [facility] (Rec: 11/21/18 14:21 [facility] [email or web address]) OP-PT Subjective Patient Comments Patient Comments Reports increased soreness today, achey all over PT-OP-J Posture/Palpation/Skin Start: 10/17/18 11:35 Freq: Status: Active Protocol: Document 10/10/18 11:36 AMH (Rec: 10/17/18 11:51 [facility] [email or web address]) Posture Evaluation Position Standing Evaluation View Posterior Head/C-Spine Posture Flexed T-Spine Posture Increased Kyphosis L-Spine Posture Increased Lordosis Weight Distribution Weight Shifted Left Palpation Assessment Location Two Palpation Location LE calf and carrasco region Palpation Findings Edema Palpation Details pitting edema right greater than left in the LE ankle to knee One Palpation Location lumbar paraspinals Palpation Findings Soft Tissue Tightness Spasm PT-OP-K Range of Motion Start: 10/17/18 11:35 Freq: Status: Active Protocol: Document 10/10/18 11:36 AMH (Rec: 10/17/18 11:51 AMH [email or web address]) Lumbar Spine Range of Motion Lumbar Spine Active Testing Position Sitting Flexion 20 Extension 0 Rotation Left 15 Rotation Right 15 Lateral Flexion Left 10 Lateral Flexion Right 10 ROM Limitations Soft Tissue Tightness Muscle Weakness Muscle Tone Pain Comments very limited in lumbar spine ROM, ROM assessed in sitting at the patient is off balance in a standing position Hip Goniometric Range of Motion Hip Left Hip ROM WFL No Testing Position Supine Flexion w/Knee Flexed 100 Straight Leg Raise 70 Right Hip ROM WFL No Testing Position Supine Flexion w/Knee Flexed 90 Straight Leg Raise 60 PT-OP-M Strength Start: 10/17/18 11:35 Freq: Status: Active Protocol: Document 10/10/18 11:36 AMH (Rec: 10/17/18 11:51 [facility] [email or web address]) Trunk Strength Trunk Manual Muscle Testing Testing Position Supine Flexion 2+ Poor+ Core Stabilization poor core stabilization and Nina does not have the ability to provide a transverse abdominal faciliation Hip Strength Hip Manual Muscle Testing Right Flexion (L2) 2+ Poor+ Extension (S1) 2+ Poor+ Abduction 2+ Poor+ External Rotation 2+ Poor+ Internal Rotation 2+ Poor+ Left Flexion (L2) 3 Fair Extension (S1) 3 Fair Abduction 3 Fair External Rotation 3 Fair Internal Rotation 3 Fair Knee Strength Knee Manual Muscle Testing Right Flexion (S2) 2+ Poor+ Extension (L3) 2+ Poor+ Reason Not Measured Muscle Tone Comments unable to perform a quad set on the right PT-OP-Q Treatments Start: 10/17/18 11:35 Freq: Status: Active Protocol: Document 11/21/18 14:10 AMH (Rec: 11/21/18 14:21 [facility] [email or web address]) Cardio Equipment Recumbent Elliptical (Mumboe) Duration (Minutes) 5 Resistance 0 Therapeutic Exercises Supine Exercises 2 Supine Exercise Name quad sets Reps/Minutes x 10 5 sec hold 1 Supine Exercise Name assisted lumbar flexion with 55 cm ball (ball rolls) Reps/Minutes x 20 KTC stretch Supine Exercise Name Semi-reclined KTC stretch ( limited stretch to the R side) Side bilateral Reps/Minutes 6 x 10 sec holds Comments Pt on MH during ex Gluteal strengthening Supine Exercise Name Semi-reclined Buttock squeezes Side bilateral Reps/Minutes 10x Comments Pt on MH during ex SAQ Supine Exercise Name Semi-reclined SAQ Side bilateral Reps/Minutes 8 x 10 sec holds Comments Pt on MH during ex knee to chest (90/90) Supine Exercise Name Semi-reclined heel slides Reps/Minutes 9x each alternating legs Comments Pt semi-reclined, Pt on MH during ex Ankle DF Supine Exercise Name Semi-reclined, legs on bolster , ankle pumps Reps/Minutes 30x Comments Pt on MH during ex Standing Exercises 3 Standing Exercise Name standing calf raises and toe lifts Reps/Minutes x 20 2 Standing Exercise Name standing calf stretch in lunge position Reps/Minutes 2 x 30 sec 1 Standing Exercise Name standing ALFREDO calf stretch in parallel bars Reps/Minutes 2 x 30 sec Manual Therapy Treatment Soft Tissue Mobilization lumbar paraspinals Body Location seated Mobilization Type Rolling Strain/Counterstrain Sustained Pressure Trigger Point Release Intensity/Depth Superficial Body Position Sitting PT-OP-R Modalities Start: 10/17/18 11:35 Freq: Status: Active Protocol: Document 11/08/18 12:55 HH (Rec: 11/08/18 13:46 HH [email or web address]) Hot Pack/Cold Pack Treatment Hot Pack Location lumbar Patient Position Supine Treatment Duration (minutes) 10 Patient Tolerance Good Comments elevated head of table PT-OP-T Assessment and Plan Start: 10/17/18 11:35 Freq: Status: Active Protocol: Document 11/21/18 14:10 AMH (Rec: 11/21/18 14:21 AM[facility] [email or web address]) Physical Therapy Assessment Assessment Summary Assessment pt very fatigued today with all her exercises and had difficulty with completing her exercises. She also reported being a little light headed. Her right LE swelling has been reduced. Physical Therapy Plan Frequency and Duration Frequency of Treatment 2x/Week Duration of Treatment 8 weeks Plan of Care Start Date 10/10/18 Plan of Care End Date 12/05/18 Next Visit Focus/Plan Next Note Type Treatment Note Next Visit Plan continue to progress strengthening as tolerated.
--- NOTE | 2018-12-03 07:35 | PT.OTN ---
Current Diagnoses Spondylolisthesis, lumbar region (11/29/18) Age-related osteoporosis without current pathological fracture (11/29/18) Postlaminectomy syndrome, not elsewhere classified (11/29/18) Physical Therapy Treatment Note PT-OP-A Visit Information Start: 10/10/18 11:38 Freq: Status: Active Protocol: Document 11/29/18 10:30 AM[facility] (Rec: 12/03/18 07:35 AMH [email or web address]) Out-Patient Physical Therapy Visit Information Visit Information Visit Type Treatment Note Visit Start Time 10:30 Visit Stop Time 11:15 Total Visit Minutes 45 Visit Number 6 Number of RESORT DESK CLERK Visits 0 PT-OP-B Current Condition Start: 10/10/18 11:38 Freq: Status: Active Protocol: Document 10/10/18 11:38 AMH (Rec: 10/10/18 11:48 AM[facility] [id number]) Current Condition History of Current Condition History of Current Condition Hx of osteoporesis and lumbar laminectomy at L3-4 one year ago. No history of injury but notes she has weakness in her low back with low tolerance for activity due to pain. She uses her fww all the time for support due to poor blaance. 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 She is on a lot of medications including prednisone for over 10 years ago. Hx of right hip replacement 7-8 years ago. hx of fibromyalgia Pt has increased pain with ADL's. Pain at rest in recliner is 1- 2/10 but with activites such as making the bed or unloading the electromechanic her pain increased to 6-7/10 Treatment Goals Patient/Caregiver Goals Pt would like to progress to using her cane PT-OP-C Subjective Start: 10/10/18 11:38 Freq: Status: Active Protocol: Document 11/29/18 10:30 AMH (Rec: 12/03/18 07:35 AMH [email or web address]) OP-PT Subjective Patient Comments Patient Comments Nina reports she is having a difficult time making it to PT visits because she is so tired and sore. She is wanting to review all her exercises and she reports she will do them at home PT-OP-J Posture/Palpation/Skin Start: 10/17/18 11:35 Freq: Status: Active Protocol: Document 10/10/18 11:36 [facility] (Rec: 10/17/18 11:51 [facility] [email or web address]) Posture Evaluation Position Standing Evaluation View Posterior Head/C-Spine Posture Flexed T-Spine Posture Increased Kyphosis L-Spine Posture Increased Lordosis Weight Distribution Weight Shifted Left Palpation Assessment Location Two Palpation Location LE calf and carrasco region Palpation Findings Edema Palpation Details pitting edema right greater than left in the LE ankle to knee One Palpation Location lumbar paraspinals Palpation Findings Soft Tissue Tightness,Spasm PT-OP-K Range of Motion Start: 10/17/18 11:35 Freq: Status: Active Protocol: Document 10/10/18 11:36 [facility] (Rec: 10/17/18 11:51 [facility] [email or web address]) Lumbar Spine Range of Motion Lumbar Spine Active Testing Position Sitting Flexion 20 Extension 0 Rotation Left 15 Rotation Right 15 Lateral Flexion Left 10 Lateral Flexion Right 10 ROM Limitations Soft Tissue Tightness,Muscle Weakness,Muscle Tone,Pain Comments very limited in lumbar spine ROM, ROM assessed in sitting at the patient is off balance in a standing position Hip Goniometric Range of Motion Hip Left Hip ROM WFL No Testing Position Supine Flexion w/Knee Flexed 100 Straight Leg Raise 70 Right Hip ROM WFL No Testing Position Supine Flexion w/Knee Flexed 90 Straight Leg Raise 60 PT-OP-M Strength Start: 10/17/18 11:35 Freq: Status: Active Protocol: Document 10/10/18 11:36 [facility] (Rec: 10/17/18 11:51 [facility] [email or web address]) Trunk Strength Trunk Manual Muscle Testing Testing Position Supine Flexion 2+ Poor+ Core Stabilization poor core stabilization and Nina does not have the ability to provide a transverse abdominal faciliation Hip Strength Hip Manual Muscle Testing Right Flexion (L2) 2+ Poor+ Extension (S1) 2+ Poor+ Abduction 2+ Poor+ External Rotation 2+ Poor+ Internal Rotation 2+ Poor+ Left Flexion (L2) 3 Fair Extension (S1) 3 Fair Abduction 3 Fair External Rotation 3 Fair Internal Rotation 3 Fair Knee Strength Knee Manual Muscle Testing Right Flexion (S2) 2+ Poor+ Extension (L3) 2+ Poor+ Reason Not Measured Muscle Tone Comments unable to perform a quad set on the right PT-OP-Q Treatments Start: 10/17/18 11:35 Freq: Status: Active Protocol: Document 11/29/18 10:30 AM[facility] (Rec: 12/03/18 07:35 [facility] [email or web address]) Cardio Equipment Recumbent Elliptical (Biodex) Duration (Minutes) 5 Resistance 0 Therapeutic Exercises Supine Exercises 2 Supine Exercise Name quad sets Reps/Minutes x 10 5 sec hold 1 Supine Exercise Name assisted lumbar flexion with 55 cm ball (ball rolls) Reps/Minutes x 20 KTC stretch Supine Exercise Name Semi-reclined KTC stretch ( limited stretch to the R side) Side bilateral Reps/Minutes 6 x 10 sec holds Comments Pt on MH during ex Gluteal strengthening Supine Exercise Name Semi-reclined Buttock squeezes Side bilateral Reps/Minutes 10x Comments Pt on MH during ex SAQ Supine Exercise Name Semi-reclined SAQ Side bilateral Reps/Minutes 8 x 10 sec holds Comments Pt on MH during ex knee to chest (90/90) Supine Exercise Name Semi-reclined heel slides Reps/Minutes 9x each alternating legs Comments Pt semi-reclined, Pt on MH during ex Ankle DF Supine Exercise Name Semi-reclined, legs on bolster , ankle pumps Reps/Minutes 30x Comments Pt on MH during ex Sitting Exercises resisted trunk ext Sitting Exercise Name isometric Resistance manual resistance Reps/Minutes 5 mins Comments cues on trunk extensors engagement resisted trunk flexion Sitting Exercise Name isometric Resistance manual resistance Reps/Minutes 5 mins Comments cues on abdominal engagement Standing Exercises 3 Standing Exercise Name standing calf raises and toe lifts Reps/Minutes x 20 2 Standing Exercise Name standing calf stretch in lunge position Reps/Minutes 2 x 30 sec 1 Standing Exercise Name standing ALFREDO calf stretch in parallel bars Reps/Minutes 2 x 30 sec PT-OP-R Modalities Start: 10/17/18 11:35 Freq: Status: Active Protocol: Document 11/08/18 12:55 HH (Rec: 11/08/18 13:46 HH [email or web address]) Hot Pack/Cold Pack Treatment Hot Pack Location lumbar Patient Position Supine Treatment Duration (minutes) 10 Patient Tolerance Good Comments elevated head of table PT-OP-T Assessment and Plan Start: 10/17/18 11:35 Freq: Status: Active Protocol: Document 11/29/18 10:30 [facility] (Rec: 12/03/18 07:35 [facility] [email or web address]) Physical Therapy Assessment Goals Five Impairment Nina is unable to get herself up off the floor [employer] Plant Operator Goal (LTG) Nina demonstrates the ability to transfer herself safely up off the floor LTG Duration 8 weeks Four Impairment pain 7-8 with ADL's such as unloading the electromechanic or making a bed [employer] Plant Operator Goal (LTG) Decrease pain with ADL's from 7-8 to 4-610 and Nina is educated in proper body mechanics for these activities to assist in decreasing her pain GOAL NOT YET MET LTG Duration 8 weeks Three Impairment Nina has poor core activation and is unable to facilitate her TA Short Term Goal (STG) Nina is able to recruit her Transverse abdominal muscle for improved support of her core in a supine position GOAL MET STG Duration 4 weeks [employer] Plant Operator Goal (LTG) Nina is able to recruit her abdominal muscles with both a SLR and sit to stand transitional activity to improve lumbar support and decrease pain with transitional activities STILL VERY DIFFICULT LTG Duration 8 weeks Two Impairment poor lumbar spine ROM and mobility Lumbar spine flexion limited to 20 deg Halfway Goal (LTG) Nina is able to improve her lumbar spine ROM tolerance for lumbar flexion by 10 degrees or greater to tolerate a home stretching program and decrease pain NINA IS TOLERATING A HOME PROGRAM LTG Duration 8 weeks plus One Impairment LE weakness Right > Left Short Term Goal (STG) Stephanie is able to recruit her right quadriceps and perform a straight leg raise on the right LE GOAL MET STG Duration 4 weeks Halfway Goal (LTG) With strengthening exercises Rhea is able to put weight through her right LE and perform a sit-stand with even weight bearing GOOD PROGRESS LTG Duration 8 weeks plus Assessment Summary Assessment review of all exercises was done today and Nina was given pictures of her home program. Her LE R>L was very swollen again today and she notes she had two days of inactivity due to feeling dizzy. I talked to her about movement daily to keep her swelling down and elevation techniques for her legs. I feel she could use more PT but she is wanting to do her exercises at home. She will be discharged from PT at this time. Physical Therapy Plan Discharge Physical Therapy Discharge Reasons Patient Request Discharge Comments due to difficulty getting to appointments due to fatigue and pain
== END 2018-12-14 08:17 ==
LOC: PHYS 10:30
PROVIDERS: PCP Internal Medicine; Visit Provider Physical Medicine & Rehabilitation
DX: M96.1 Postlaminectomy syndrome, not elsewhere classified (principal); M81.0 Age-related osteoporosis without current pathological fracture; M43.16 Spondylolisthesis, lumbar region
CPT/HCPCS: 97110; 97140; 97161; 97535

== ENCOUNTER → 2018-12-14 14:15 | Outpatient (CLI) | payer MEDICARE, OTHER, SELFPAY ==
[2018-12-14 15:11] LABS: Add Manual Diff / Slide Review NO; Basophils Absolute Auto 0 /uL (0-100); Basophils Percent Auto 0.3 % (0-2); Eosinophils Absolute Auto 200 /uL (0-450); Eosinophils Percent Auto 1.8 % (2-4); Hematocrit 41.1 % (36-46); Hemoglobin 13.5 g/dL (12.0-16.0); Lymphocytes Absolute Auto 2400 /uL (1100-4500); Lymphocytes Percent Auto 23.2 % (25-40); Mean Corpuscular HGB Conc 32.9 % (30-36); Mean Corpuscular Volume 94.1 fL (80-100); Monocytes Absolute Auto 900 /uL (0-900); Monocytes Percent Auto 8.7 % (3-14); Neutrophils Absolute Auto 6800 /uL (1500-7000); Platelet Count 145 X10^3/uL (150-400); Red Blood Cell Count 4.37 X10^6/uL (4.0-5.2); Red Cell Distribution Width 14.9 % (11.6-14.8); White Blood Cell Count 10.2 X10^3/uL (4.5-11.0)
[2018-12-14 16:29] LABS: Alanine Aminotransferase 36 IU/L (9-52); Albumin Globulin Ratio 1.5 (1.0-2.8); Alkaline Phosphatase 147 U/L (38-126); Aspartate Aminotransferase 51 IU/L (14-36); BUN Creatinine Ratio 17.3 (6-22); Bilirubin Total 0.4 mg/dL (0.2-1.3); Blood Urea Nitrogen 38 mg/dL (7-17); Calcium 9.2 mg/dL (8.4-10.2); Carbon Dioxide 24 mmol/L (22-32); Chloride 110 mmol/L (98-107); Cholesterol 179 mg/dL (140-199); Estimated Glomerular Filt Rate 21.9 mL/min (>60); Globulin 2.6 g/dL (1.7-4.1); Glucose 116 mg/dL (80-110); HDL Cholesterol 52 mg/dL (40-60); HEMOLYSIS < 15 (0-50); LDL Cholesterol Calculated 80 mg/dL (<100); Potassium 3.9 mmol/L (3.4-5.1); Sodium 142 mmol/L (137-145); Total Protein 6.6 g/dL (6.3-8.2); Triglycerides 235 mg/dL (35-150)
[2018-12-14 16:46] LABS: Vitamin D 25 Hydroxy (D3) 34.5 ng/mL (30.0-100.0)
[2018-12-14 17:00] LABS: TSH w/ Reflex to FT4 1.28 uIU/mL (0.47-4.68)
[2018-12-19 09:55] LABS: Vit B12 Binding Capacity unsat 928 pg/mL (650-1340)
== END ==
PROVIDERS: PCP Internal Medicine; Visit Provider Internal Medicine
DX: M31.7 Microscopic polyangiitis (principal); K90.0 Celiac disease; E78.2 Mixed hyperlipidemia; N18.9 Chronic kidney disease, unspecified; E53.8 Deficiency of other specified B group vitamins; E03.9 Hypothyroidism, unspecified
CPT/HCPCS: 36415; 80053; 80061; 82306; 82608; 82784; 83516; 84443; 85025

== ENCOUNTER → 2019-01-09 12:52 | Outpatient (CLI) | payer MEDICARE, OTHER, SELFPAY ==
--- NOTE | 2019-01-09 12:58 | DIET.PN ---
Dietary Progress Note Assessment: 73y F referred to nutrition for help managing CKD4. PMHx includes autoimmune disease microscopic polyangina and stomach troubles thought to be IBS, tested negative for celiac, but pt experimenting with gluten free diet for 1 mo, has helped c cramping and bloating. used to vomit right after eating often, not a big appetite HT: 5'5 WT: 185# UBW: 200# dropping slowly over the past year BMI: 30.8 Labs: eGFR 21.9, down from 29 over past few years, K+ and Na+ WNL, Vit D 34 WNL Usual Intake: wakes: 9am doesn't usually eat breakfast, sometimes water or 1/2 c coffee (sugar and creamer) 12-1pm (lunch) cheese c crackers, fruit, half sandwich- segundo, mustard, lettuce ham and turkey lunchmeat, sometimes c fruit, chips, celery and carrots tends to graze- ice cream, crackers- cheezits, gf sesame crackers dinner: hamburgers, spaghetti, steak, tacos and burritos mostly beef and chicken sn: juliet bars, popcorn goes to bed 11pm, sleeps 10h/night waking only once PA: doesn't move around much, has chronic lower leg edema and back px, unsteady on feet, here with walker. Nutrition Diagnosis: Undesirable food choices r/t diet reccs for CKD4 (Na, PRO) aeb food recall showing reliance on processed meats and grain foods (chicken tenders, lunch meat, crackers), eGFR drop from 29 to 21, pt reporting she does not read food labels. Interventions: 1. Educated pt on the role of nutrition on kidney dz progression. Discussed only limiting nutrients as indicated on labs. Pt Vit D, K+ labs WNL, no need to restrict at this time. 2. Per reliance on processed foods, educated pt on reading food labels-practiced manipulating Facts Panel based on serving size and actual amount consumed. 3. Educated on Sodium restriction to 2.3g/d. Pt diet likely exceeds this amount. Pt will log sodium intake for 1w and shop for substitutes of items containing >20% DV per serving. Will not salt at the table. 4. Educated on lower PRO intake to preserve kidneys while preserving lean body mass (40-50g/d). Gave pt handout on PRO content of foods. Pt will log PRO intake for a week and ensure she is hitting the jenifer. As pt drinks Ensure sometimes, recc Nepro formulation to preserve kidneys. Pt not interested in plant proteins at this time. Diet Order: 2.3g Na restriction, 40-50g PRO limit/d (0.6-0.8g/kg renal) Monitoring/Evaluations: pt will schedule f/u if labs worsen
== END ==
PROVIDERS: PCP Internal Medicine; Visit Provider Internal Medicine
DX: N18.4 Chronic kidney disease, stage 4 (severe) (principal); E66.9 Obesity, unspecified; Z68.30 Body mass index [BMI] 30.0-30.9, adult; Z71.3 Dietary counseling and surveillance; R60.9 Edema, unspecified; M54.9 Dorsalgia, unspecified
CPT/HCPCS: 97802

== ENCOUNTER → 2019-05-13 13:01 | Outpatient (CLI) | payer MEDICARE, OTHER, SELFPAY ==
--- NOTE | 2019-05-13 | DI.CT.S_ITS ---
PROCEDURE: CT ABDOMEN PELVIS WO CON INDICATIONS: ABDOMINAL PAIN,CONSTIPATION TECHNIQUE: After the administration of oral contrast, 5 mm thick sections acquired from the diaphragms to the symphysis. 5 mm coronal and sagittal reformats were performed. For radiation dose reduction, the following was used: automated exposure control, adjustment of mA and/or kV according to patient size. COMPARISON: [facility], CT, KIDNEY/ URETER/BLADDER, 09/27/2010, 16:28. [facility], CT, PE STUDY (CTA CHEST), 12/04/2011, 3:10. FINDINGS: Image quality: Artifact is present overlying the right lower quadrant from right hip arthroplasty. ABDOMEN: Lung bases: 3 mm right lower lobe nodule is present. This is new compared to 2012. Scarring is noted at the bases. Solid organs: Liver is normal in size. Gallbladder has been removed. The bile duct is prominent measuring 14 mm compared to 10 mm on prior exam in 2012. Pancreas is normal in size. Spleen is normal in size. No adrenal nodules. Both kidneys are atrophic in size, without hydronephrosis or nephrolithiasis. Peritoneum and bowel: Bowel loops demonstrate normal wall thickness and caliber. No free fluid or air. Moderate colonic diverticula are present without associated inflammatory change. Mild scattered stool is present. Nodes and vessels: No retroperitoneal or mesenteric adenopathy by size criteria. Aorta and inferior vena cava are normal in size. Miscellaneous: No ventral hernias. PELVIS: Genitourinary: Bladder wall thickness is normal. Miscellaneous: No inguinal hernias or adenopathy. Bones: No suspicious bony lesions. Old compression deformities are identified at T12 and L1. There is appearance of old left pubic ramus fracture. IMPRESSION: 1. 3 mm right lower lobe nodule as above. It is nonspecific. Recommend interval followup as below. 2. Prominence of the common bile duct. While this is suspected to be related to postcholecystectomy changes, recommend correlation to laboratory values and further evaluation as indicated. 3. Diverticulosis. 4. Mild scattered stool without gross constipation. Fleischner Society criteria for SOLID lung nodule followup. Nodule size (mm)Low-risk patientHigh-risk patient<6 (single or multiple)No routine followup.Optional CT at 12 months. 6-8 (single or multiple)CT at 6-12 months, then optional CT at 18-24 mo.CT at 6-12 months, then CT at 18-24 months. >8 (single)CT, PET-CT, or biopsy at 3 months. Same as for low-risk pts. >8 (multiple)CT at 3-6 months, then optional CT at 18-24 mo.CT at 3-6 months, then CT at 18-24 months. immunosuppression, or patients with known primary cancer. Dictated by: Krista Tolliver M.D. on 05/13/2019 at 16:16 Approved by: Krista Tolliver M.D. on 05/13/2019 at 16:22
== END ==
PROVIDERS: PCP Internal Medicine; Referring Provider Internal Medicine; Visit Provider Student in an Organized Health Care Education/Training Program
DX: R10.9 Unspecified abdominal pain (principal); K59.00 Constipation, unspecified; R91.1 Solitary pulmonary nodule; K57.30 Diverticulosis of large intestine without perforation or abscess without bleeding; Z96.641 Presence of right artificial hip joint; Z90.49 Acquired absence of other specified parts of digestive tract
CPT/HCPCS: 74176

== ENCOUNTER → 2019-05-29 14:36 | Outpatient (CLI) | payer MEDICARE, OTHER, SELFPAY ==
[2019-05-29 15:30] LABS: Add Manual Diff / Slide Review NO; Basophils Absolute Auto 0 /uL (0-100); Basophils Percent Auto 0.3 % (0-2); Eosinophils Absolute Auto 100 /uL (0-450); Eosinophils Percent Auto 0.6 % (2-4); Hematocrit 43.3 % (36-46); Hemoglobin 14.1 g/dL (12.0-16.0); Lymphocytes Absolute Auto 2900 /uL (1100-4500); Mean Corpuscular HGB Conc 32.7 % (30-36); Mean Corpuscular Hemoglobin 31.4 PG (26-34); Mean Corpuscular Volume 96.1 fL (80-100); Monocytes Absolute Auto 800 /uL (0-900); Monocytes Percent Auto 7.5 % (3-14); Neutrophils Absolute Auto 6300 /uL (1500-7000); Neutrophils Percent Auto 62.6 % (50-75); Platelet Count 149 X10^3/uL (150-400); Red Cell Distribution Width 15.4 % (11.6-14.8)
[2019-05-29 15:53] LABS: Alanine Aminotransferase 22 IU/L (<35); Albumin 4.4 g/dL (3.5-5.0); Albumin Globulin Ratio 1.5 (1.0-2.8); Alkaline Phosphatase 126 U/L (38-126); Aspartate Aminotransferase 34 IU/L (14-36); BUN Creatinine Ratio 13.7 (6-22); Bilirubin Total 0.5 mg/dL (0.2-1.3); Blood Urea Nitrogen 26 mg/dL (7-17); Calcium 10.4 mg/dL (8.4-10.2); Carbon Dioxide 26 mmol/L (22-32); Chloride 113 mmol/L (98-107); Creatine Kinase 41 U/L (30-135); Estimated Glomerular Filt Rate 25.8 mL/min (>60); Globulin 2.9 g/dL (1.7-4.1); Glucose 109 mg/dL (80-110); HEMOLYSIS < 15 (0-50); Potassium 4.9 mmol/L (3.4-5.1); Sodium 149 mmol/L (137-145); Total Protein 7.3 g/dL (6.3-8.2)
[2019-05-29 15:56] LABS: C-Reactive Protein Quant < 0.5 mg/dL (<1.0)
[2019-05-29 16:15] LABS: Erythrocyte Sedimentation Rate 7 MM/HR (0-20)
[2019-05-29 16:26] LABS: TSH w/ Reflex to FT4 2.31 uIU/mL (0.47-4.68)
== END ==
PROVIDERS: PCP Internal Medicine; Referring Provider Internal Medicine; Visit Provider Internal Medicine
DX: M13.0 Polyarthritis, unspecified (principal); M35.3 Polymyalgia rheumatica
CPT/HCPCS: 36415; 80053; 82550; 84443; 85025; 85651; 86140

== ENCOUNTER → 2019-11-13 18:49 | Outpatient (ROUT) | payer MEDICARE, OTHER, SELFPAY ==
[2019-11-13 19:09] LABS: Add Manual Diff / Slide Review NO; Basophils Absolute Auto 0 /uL (0-100); Basophils Percent Auto 0.3 % (0-2); Eosinophils Absolute Auto 0 /uL (0-450); Eosinophils Percent Auto 0.5 % (2-4); Hematocrit 42.4 % (36-46); Hemoglobin 13.8 g/dL (12.0-16.0); Lymphocytes Absolute Auto 2500 /uL (1100-4500); Lymphocytes Percent Auto 24.1 % (25-40); Mean Corpuscular HGB Conc 32.6 % (30-36); Mean Corpuscular Hemoglobin 31.2 PG (26-34); Mean Corpuscular Volume 95.5 fL (80-100); Monocytes Absolute Auto 600 /uL (0-900); Monocytes Percent Auto 5.9 % (3-14); Neutrophils Absolute Auto 7000 /uL (1500-7000); Neutrophils Percent Auto 69.2 % (50-75); Platelet Count 172 X10^3/uL (150-400); Red Blood Cell Count 4.44 X10^6/uL (4.0-5.2); Red Cell Distribution Width 14.5 % (11.6-14.8); White Blood Cell Count 10.2 X10^3/uL (4.5-11.0)
[2019-11-13 19:13] LABS: Alanine Aminotransferase 42 IU/L (<35); Albumin Globulin Ratio 1.7 (1.0-2.8); Alkaline Phosphatase 114 U/L (38-126); Aspartate Aminotransferase 59 IU/L (14-36); BUN Creatinine Ratio 19.3 (6-22); Bilirubin Total 0.6 mg/dL (0.2-1.3); Blood Urea Nitrogen 33 mg/dL (7-17); C-Reactive Protein Quant < 0.5 mg/dL (<1.0); Calcium 9.4 mg/dL (8.4-10.2); Carbon Dioxide 24 mmol/L (22-32); Chloride 109 mmol/L (98-107); Cholesterol 170 mg/dL (140-199); Estimated Glomerular Filt Rate 29.2 mL/min (>60); Globulin 2.3 g/dL (1.7-4.1); Glucose 100 mg/dL (80-110); HDL Cholesterol 57 mg/dL (40-60); HEMOLYSIS < 15 (0-50); LDL Cholesterol Calculated 69 mg/dL (<100); Potassium 4.7 mmol/L (3.4-5.1); Sodium 140 mmol/L (137-145); Total Protein 6.3 g/dL (6.3-8.2); Triglycerides 222 mg/dL (35-150)
[2019-11-13 19:31] LABS: Erythrocyte Sedimentation Rate 8 MM/HR (0-20)
== END ==
PROVIDERS: PCP Internal Medicine; Visit Provider Internal Medicine
DX: M31.7 Microscopic polyangiitis (principal)
CPT/HCPCS: 80053; 80061; 85025; 85651; 86140

== ENCOUNTER → 2019-11-22 14:54 | Outpatient (CLI) | payer MEDICARE, OTHER, SELFPAY ==
--- NOTE | 2019-11-22 15:01 | DI.RAD.S_ITS ---
PROCEDURE: XR SHOULDER RT MIN 2V INDICATIONS: CHRONIC PAIN SYDROME TECHNIQUE: 3 views of the shoulder were acquired. COMPARISON: [facility], , SHOULDER MINIMUM 2 VIEW LEFT, 02/25/2009, 18:20. FINDINGS: Bones: No fractures or dislocations. No suspicious bony lesions. Visualized ribs appear intact. Note is made of a [id number] degree of AC joint osteoarthritis. Soft tissues: No suspicious soft tissue calcifications. IMPRESSION: No trauma found. [id number] AC joint osteoarthritis. Dictated by: Timoteo Ceballos M.D. on 11/22/2019 at 16:13 Approved by: Timoteo Ceballos M.D. on 11/22/2019 at 16:13
--- NOTE | 2019-11-22 15:01 | DI.RAD.S_ITS ---
PROCEDURE: XR SHOULDER LT MIN 2V INDICATIONS: CHRONIC PAIN SYDROME TECHNIQUE: 3 views of the shoulder were acquired. COMPARISON: [facility], , CHEST 1 VIEW, 07/02/2015, 12:14. [facility], , SHOULDER MINIMUM 2 VIEW LEFT, 02/25/2009, 18:20. FINDINGS: Bones: No fractures or dislocations. No suspicious bony lesions. Visualized ribs appear intact. Mild AC joint osteoarthritis. Soft tissues: No suspicious soft tissue calcifications. IMPRESSION: Source of pain is not seen. Mild AC joint osteoarthritis. Dictated by: Timoteo Ceballos M.D. on 11/22/2019 at 16:10 Approved by: Timoteo Ceballos M.D. on 11/22/2019 at 16:11
--- NOTE | 2019-11-22 15:01 | DI.RAD.S_ITS ---
PROCEDURE: XR HIP W PEL IF DONE LT 2V INDICATIONS: CHRONIC PAIN SYDROME TECHNIQUE: AP pelvis with lateral view(s) of the left hip(s). COMPARISON: None. FINDINGS: Bones: No fractures or dislocations. Pelvic ring appears intact. No suspicious bony lesions. Soft tissues: The visualized bowel gas pattern is normal. No suspicious soft tissue calcifications. IMPRESSION: Prior right hip arthroplasty, no evidence of device loosening or disruption. The frontal and lateral views of the left hip show only a mild degree of degenerative hip joint osteoarthritis. No trauma. Dictated by: Timoteo Ceballos M.D. on 11/22/2019 at 16:11 Approved by: Timoteo Ceballos M.D. on 11/22/2019 at 16:13
== END ==
PROVIDERS: PCP Internal Medicine; Referring Provider Registered Nurse; Visit Provider Registered Nurse
DX: G89.4 Chronic pain syndrome (principal); M25.559 Pain in unspecified hip; M46.1 Sacroiliitis, not elsewhere classified; M25.511 Pain in right shoulder; M19.012 Primary osteoarthritis, left shoulder; M19.011 Primary osteoarthritis, right shoulder; M16.12 Unilateral primary osteoarthritis, left hip; Z96.641 Presence of right artificial hip joint
CPT/HCPCS: 73030; 73502

== ENCOUNTER → 2020-04-15 18:18 | Outpatient (ROUT) | payer MEDICARE, OTHER, SELFPAY ==
[2020-04-15 19:17] LABS: Add Manual Diff / Slide Review NO; Basophils Absolute Auto 0 /uL (0-100); Basophils Percent Auto 0.3 % (0-2); Eosinophils Absolute Auto 0 /uL (0-450); Eosinophils Percent Auto 0.5 % (2-4); Hematocrit 41.3 % (36-46); Hemoglobin 13.5 g/dL (12.0-16.0); Lymphocytes Absolute Auto 2200 /uL (1100-4500); Lymphocytes Percent Auto 20.8 % (25-40); Mean Corpuscular HGB Conc 32.7 % (30-36); Mean Corpuscular Hemoglobin 31.6 PG (26-34); Mean Corpuscular Volume 96.6 fL (80-100); Monocytes Absolute Auto 700 /uL (0-900); Monocytes Percent Auto 6.7 % (3-14); Neutrophils Absolute Auto 7500 /uL (1500-7000); Neutrophils Percent Auto 71.7 % (50-75); Platelet Count 168 X10^3/uL (150-400); Red Blood Cell Count 4.28 X10^6/uL (4.0-5.2); Red Cell Distribution Width 14.6 % (11.6-14.8); White Blood Cell Count 10.4 X10^3/uL (4.5-11.0)
[2020-04-15 19:23] LABS: Alanine Aminotransferase 20 IU/L (<35); Albumin Globulin Ratio 1.7 (1.0-2.8); Alkaline Phosphatase 91 U/L (38-126); Aspartate Aminotransferase 32 IU/L (14-36); BUN Creatinine Ratio 22.4 (6-22); Bilirubin Total 0.3 mg/dL (0.2-1.3); Blood Urea Nitrogen 37 mg/dL (7-17); Calcium 9.5 mg/dL (8.4-10.2); Carbon Dioxide 26 mmol/L (22-32); Chloride 108 mmol/L (98-107); Estimated Glomerular Filt Rate 30.3 mL/min (>60); Globulin 2.3 g/dL (1.7-4.1); Glucose 112 mg/dL (80-110); HEMOLYSIS < 15 (0-50); Potassium 4.3 mmol/L (3.4-5.1); Sodium 139 mmol/L (137-145); Total Protein 6.3 g/dL (6.3-8.2)
[2020-04-15 19:32] LABS: C-Reactive Protein Quant < 0.5 mg/dL (<1.0)
[2020-04-15 19:48] LABS: Erythrocyte Sedimentation Rate 18 MM/HR (0-20)
[2020-04-15 19:53] LABS: TSH w/ Reflex to FT4 1.15 uIU/mL (0.47-4.68)
== END ==
PROVIDERS: PCP Internal Medicine; Visit Provider Internal Medicine
DX: M13.0 Polyarthritis, unspecified (principal); E03.9 Hypothyroidism, unspecified
CPT/HCPCS: 80053; 84443; 85025; 85651; 86140

== ENCOUNTER → 2020-05-01 13:42 | Outpatient (CLI) | payer MEDICARE, OTHER, SELFPAY ==
[2020-05-01] MEDS: COVID-19 VACC #1, MRNA(MOD) 100 MCG/0.5 ML VIAL IM (14:05)
== END ==
PROVIDERS: PCP Internal Medicine; Visit Provider Internal Medicine
DX: Z23 Encounter for immunization (principal)
CPT/HCPCS: 0011A; 91301

== ENCOUNTER → 2020-05-29 13:39 | Outpatient (CLI) | payer MEDICARE, OTHER, SELFPAY ==
[2020-05-29] MEDS: COVID-19 VACC #2, MRNA(MOD) 100 MCG/0.5 ML VIAL IM (13:43)
== END ==
PROVIDERS: PCP Internal Medicine; Visit Provider Internal Medicine
DX: Z23 Encounter for immunization (principal)
CPT/HCPCS: 0012A; 91301

== ENCOUNTER → 2020-09-03 16:21 | Outpatient (CLI) | payer MEDICARE, OTHER, SELFPAY ==
--- NOTE | 2020-09-03 | DI.CT.S_ITS ---
PROCEDURE: CT HEAD/BRAIN WO CON INDICATIONS: Headache, unspecified TECHNIQUE: Noncontrast 4.5 mm thick angled axial sections acquired from the foramen magnum to the vertex, with coronal and sagittal reformats. For radiation dose reduction, the following was used: automated exposure control, adjustment of mA and/or kV according to patient size. COMPARISON: [facility], CT, SINUS SCREEN WO CONTRAST, 03/22/2017, 13:17. [facility], CT, CT HEAD/BRAIN WO CON, 08/18/2018, 10:57. FINDINGS: Image quality: Excellent. CSF spaces: Basal cisterns are patent. No extra-axial fluid collections. The ventricles are symmetric in size and shape. Brain: No intracranial bleeds or masses. There is cerebral volume loss for age, with resultant ventricular and sulcal prominence. There are periventricular and deep white matter chronic small vessel ischemic changes. There is intracranial internal carotid artery atherosclerosis. Skull and face: Calvarium and visualized facial bones appear intact, without suspicious lesions. Sinuses: Visualized sinuses and mastoids are clear. IMPRESSION: Unremarkable intracranial study, without an imaging explanation found for the patient's presenting history of headache. Note is made of age-appropriate brain parenchymal volume loss and chronic small vessel ischemic changes. Dictated by: Danny Lou M.D. on 09/03/2020 at 15:57 Approved by: Danny Lou M.D. on 09/03/2020 at 15:59
== END ==
PROVIDERS: PCP Internal Medicine; Referring Provider Internal Medicine; Visit Provider Internal Medicine
DX: R51.9 Headache, unspecified (principal)
CPT/HCPCS: 70450

== ENCOUNTER → 2021-01-15 14:07 | Outpatient (CLI) | payer MEDICARE, OTHER, SELFPAY ==
--- NOTE | 2021-01-15 | DI.RAD.S_ITS ---
PROCEDURE: XR KNEE LT 3V INDICATIONS: Left Knee Pain TECHNIQUE: 3 views of the knee were acquired. COMPARISON: None. FINDINGS: Bones: No fractures or dislocations. No suspicious bony lesions. Trace narrowing of the lateral femoral tibial joint and tricompartmental periarticular osteophyte formation Soft tissues: Small joint effusion. No suspicious soft tissue calcifications. IMPRESSION: Mild knee joint degeneration and small knee joint effusion. Dictated by: Christopher Feng RRA Interpreted: Camron Garcia MD on 01/15/2021 at 16:34 Transcribed by: FELIX on 01/15/2021 at 16:34 Approved by: Camron Garcia M.D. on 01/15/2021 at 16:52
== END ==
PROVIDERS: PCP Internal Medicine; Referring Provider Internal Medicine; Visit Provider Internal Medicine
DX: M25.562 Pain in left knee (principal); M17.12 Unilateral primary osteoarthritis, left knee; M25.462 Effusion, left knee
CPT/HCPCS: 73562

== ENCOUNTER → 2021-04-21 14:36 | Outpatient (CLI) | payer MEDICARE, OTHER, SELFPAY ==
[2021-04-21 15:41] LABS: INR 2.2 (0.9-1.3)
== END ==
PROVIDERS: PCP Internal Medicine; Referring Provider Internal Medicine; Visit Provider Internal Medicine
DX: Z86.718 Personal history of other venous thrombosis and embolism (principal)
CPT/HCPCS: 36415; 85610

== ENCOUNTER → 2021-05-18 11:15 | Outpatient (CLI) | payer MEDICARE, OTHER, SELFPAY ==
--- NOTE | 2021-05-18 | DI.RAD.S_ITS ---
PROCEDURE: FL BARIUM SWALLOW W AIR COMPARISON: None. INDICATIONS: Epigastric pain FINDINGS: Esophageal mucosa is normal on air-contrast views. There is severe esophageal dysmotility. Small hiatal hernia is noted. There is narrowing at the gastroesophageal junction which delayed passage of 13 millimeter barium tablet. Gastroesophageal reflux was identified which occurred without provocative maneuvers. Pooling was noted in the vallecula bilaterally which did not cleared with repeat swallows. Single episode of aspiration was noted. IMPRESSION: 1. Severe esophageal dysmotility. 2. Small hiatal hernia. 3. Stricture at the gastroesophageal junction which delayed passage of 13 millimeter barium tablet. Recommend gastroenterology consultation for endoscopy evaluation to exclude malignancy. 4. Pathologic bilateral vallecular pooling. 5. Single episode of aspiration. Dictated by: Lauren Chowdary MD, PhD on 05/18/2021 at 13:02 Approved by: Lauren Chowdary MD, PhD on 05/18/2021 at 13:07
== END ==
PROVIDERS: PCP Internal Medicine; Referring Provider Internal Medicine; Visit Provider Internal Medicine
DX: K22.4 Dyskinesia of esophagus (principal); K22.2 Esophageal obstruction; K44.9 Diaphragmatic hernia without obstruction or gangrene; R10.13 Epigastric pain
CPT/HCPCS: 74221

== ENCOUNTER → 2021-07-29 14:21 | Outpatient (CLI) | payer MEDICARE, OTHER, SELFPAY ==
[2021-07-29 14:53] LABS: Hematocrit 43.2 % (36-46); Hemoglobin 14.3 g/dL (12.0-16.0)
[2021-07-29 15:12] LABS: Blood Urea Nitrogen 35 mg/dL (7-17); Calcium 9.5 mg/dL (8.4-10.2); Carbon Dioxide 22 mmol/L (22-32); Chloride 113 mmol/L (98-107); Estimated Glomerular Filt Rate 25 mL/min (>60); Glucose 98 mg/dL (80-110); HEMOLYSIS 16 (0-50); Sodium 144 mmol/L (137-145)
[2021-07-29 15:25] LABS: Creatinine Urine Random 63.4 mg/dL; Protein (Total) Urine Random 10 mg/dL (0-12); Protein Creatinine Ratio Urine 0.15 GRAM/24H
== END ==
PROVIDERS: PCP Internal Medicine; Referring Provider Student in an Organized Health Care Education/Training Program; Visit Provider Student in an Organized Health Care Education/Training Program
DX: D64.9 Anemia, unspecified (principal); N05.9 Unspecified nephritic syndrome with unspecified morphologic changes; R80.9 Proteinuria, unspecified
CPT/HCPCS: 36415; 80048; 82570; 84156; 85014; 85018

== ENCOUNTER → 2021-09-21 12:28 | Outpatient (CLI) | payer MEDICARE, OTHER, SELFPAY ==
--- NOTE | 2021-09-21 | DI.RAD.S_ITS ---
PROCEDURE: XR ANKLE LT MIN 3V INDICATIONS: ACUTE LEFT ANKLE TECHNIQUE: 3 views of the ankle were acquired. COMPARISON: None. FINDINGS: Bones: There are surgical screws traversing the 2nd and 3rd tarsometatarsal joints. No fractures or dislocations. Ankle mortise is normally aligned. No suspicious bony lesions. Mild degenerative joint disease. Calcaneal spurring. There is osteopenia. Soft tissues: No tibiotalar joint effusion. Achilles tendon appears normal. There is diffuse soft tissue swelling. A calcific density in the anterior aspect of distal lower leg, which may be secondary to a calcified hemangioma or remote trauma. IMPRESSION: 1. No acute osseous abnormalities. 2. Degenerative and postsurgical changes. 3. Calcaneal spurring. 4. Osteopenia. Dictated by: Camron Garcia M.D. on 09/21/2021 at 16:11 Approved by: Camron Garcia M.D. on 09/21/2021 at 16:14
== END ==
PROVIDERS: PCP Internal Medicine; Referring Provider Physician Assistant; Visit Provider Physician Assistant
DX: M19.072 Primary osteoarthritis, left ankle and foot (principal); M77.32 Calcaneal spur, left foot; M85.872 Other specified disorders of bone density and structure, left ankle and foot; M25.572 Pain in left ankle and joints of left foot
CPT/HCPCS: 73610

== ENCOUNTER → 2021-10-15 14:16 | Outpatient (CLI) | payer MEDICARE, OTHER, SELFPAY ==
[2021-10-15 15:05] LABS: Appearance Urine UA CLEAR; Bilirubin Urine UA NEGATIVE (NEGATIVE); Color Urine UA YELLOW; Glucose Urine UA NEGATIVE (Negative); Ketones Urine UA NEGATIVE (NEGATIVE); Leukocyte Esterase Urine UA 1+ (NEGATIVE); Nitrite Urine UA NEGATIVE (Negative); Occult Blood Urine UA NEGATIVE (Negative); Protein Urine UA NEGATIVE (Negative); Urobilinogen Urine UA 0.2 E.U./dL (0.2)
[2021-10-15 15:18] LABS: Bacteria Urine Many (>30); Culture Indicated Urine Specimen Cultured; RBC Urine 1-5/HPF (0-5/HPF); Squamous Epithelial Cell Urine 1-5 /HPF (0-5/HPF); WBC Urine 30-100/HPF (0-5/HPF)
[2021-10-15 15:31] LABS: Hematocrit 40.4 % (36-46); Hemoglobin 13.4 g/dL (12.0-16.0)
[2021-10-15 15:58] LABS: BUN Creatinine Ratio 19.2 (6-22); Blood Urea Nitrogen 35 mg/dL (7-17); Calcium 8.8 mg/dL (8.4-10.2); Carbon Dioxide 22 mmol/L (22-32); Chloride 110 mmol/L (98-107); Estimated Glomerular Filt Rate 28 mL/min (>60); Glucose 122 mg/dL (80-110); HEMOLYSIS < 15 (0-50); Potassium 4.4 mmol/L (3.4-5.1); Sodium 144 mmol/L (137-145)
[2021-10-16 07:40] LABS: Parathyroid Hormone Int 97 pg/mL (15-65)
== END ==
PROVIDERS: PCP Internal Medicine; Referring Provider Student in an Organized Health Care Education/Training Program; Visit Provider Student in an Organized Health Care Education/Training Program
DX: N05.9 Unspecified nephritic syndrome with unspecified morphologic changes (principal); D64.9 Anemia, unspecified; N25.81 Secondary hyperparathyroidism of renal origin; R80.9 Proteinuria, unspecified
CPT/HCPCS: 36415; 80048; 81001; 83970; 85014; 85018; 87077; 87086; 87186

== ENCOUNTER → 2021-12-22 15:09 | Outpatient (CLI) | payer MEDICARE, OTHER, SELFPAY ==
--- NOTE | 2021-12-22 15:11 | DI.CT.S_ITS ---
PROCEDURE: CT PEL WO CON INDICATIONS: RT hip replacement /rule out prosthesis failure TECHNIQUE: Noncontrast 3 mm axial sections acquired through the bony pelvis, with coronal and sagittal reformatting. COMPARISON: [facility], CT, CT ABDOMEN PELVIS WO CON, 05/13/2019, 13:47. [facility], CR, XR PELVIS WITH BILATERAL LATERAL HIPS, 12/13/2021, 14:01. FINDINGS: Image quality: Excellent. Bones: Postsurgical changes are again seen from right hip arthroplasty. Hardware components are in stable positions without signs of loosening. No perihardware fracture. The femoral head component is well centered within the acetabular cup. Chronic fracture deformity is seen in the left pubic body. No acute osseous fracture is seen. There is generalized osteopenia. Degenerative changes are seen at the sacroiliac joints and lumbar spine. Soft tissues: No significant right hip effusion or periarticular mass. There is fatty infiltration of multiple muscles surrounding the hips. Numerous diverticula are seen in the colon without signs of acute diverticulitis. Moderate aortic atherosclerotic calcifications are present. Subcutaneous scarring is seen lateral to the right hip. IMPRESSION: 1. Right hip arthroplasty with hardware components in stable positions. No signs of loosening or perihardware fracture. No periarticular mass. 2. Chronic fracture deformity involving the body of the left pubic bone. 3. Generalized osteopenia. No acute osseous fracture. 4. Degenerative changes in the sacroiliac joints and lower lumbar spine. Moderate left hip osteoarthrosis. Dictated by: Julián Henson M.D. on 12/22/2021 at 19:33 Approved by: Julián Henson M.D. on 12/22/2021 at 19:43
== END ==
PROVIDERS: PCP Internal Medicine; Referring Provider Orthopaedic Surgery; Visit Provider Orthopaedic Surgery
DX: M47.816 Spondylosis without myelopathy or radiculopathy, lumbar region (principal); M47.818 Spondylosis without myelopathy or radiculopathy, sacral and sacrococcygeal region; M16.12 Unilateral primary osteoarthritis, left hip; Z96.641 Presence of right artificial hip joint; M85.88 Other specified disorders of bone density and structure, other site; S32.502 Unspecified fracture of left pubis
CPT/HCPCS: 72192

== ENCOUNTER → 2022-02-09 15:19 | Outpatient (CLI) | payer MEDICARE, OTHER, SELFPAY ==
[2022-02-09 16:03] LABS: Hematocrit 43.8 % (36-46); Hemoglobin 14.3 g/dL (12.0-16.0)
[2022-02-09 16:21] LABS: BUN Creatinine Ratio 15.1 (6-22); Blood Urea Nitrogen 29 mg/dL (7-17); Carbon Dioxide 24 mmol/L (22-32); Chloride 109 mmol/L (98-107); Estimated Glomerular Filt Rate 27 mL/min (>60); Glucose 108 mg/dL (80-110); HEMOLYSIS < 15 (0-50); Potassium 4.6 mmol/L (3.4-5.1); Sodium 143 mmol/L (137-145)
[2022-02-09 17:29] LABS: Creatinine Urine Random 25.4 mg/dL; Protein (Total) Urine Random 7 mg/dL (0-12); Protein Creatinine Ratio Urine 0.27 GRAM/24H
[2022-02-11 00:09] LABS: Parathyroid Hormone Int 124 pg/mL (15-65)
== END ==
PROVIDERS: PCP Internal Medicine; Referring Provider Student in an Organized Health Care Education/Training Program; Visit Provider Student in an Organized Health Care Education/Training Program
DX: N05.9 Unspecified nephritic syndrome with unspecified morphologic changes (principal); R80.9 Proteinuria, unspecified; D64.9 Anemia, unspecified; N25.81 Secondary hyperparathyroidism of renal origin
CPT/HCPCS: 36415; 80048; 82570; 83970; 84156; 85014; 85018

== ENCOUNTER 2022-03-01 10:47 | Emergency (ER) | payer MEDICARE, OTHER, SELFPAY ==
[2022-03-01] VITALS (17 sets, daily range): BP systolic 80–192; BP diastolic 60–89; PULSE 59–154; RESP 18–38; TEMP 36.6; O2SAT 93–99; BMI 27.4
--- NOTE | 2022-03-01 11:01 | DI.RAD.S_ITS ---
PROCEDURE: XR CHEST 1V INDICATIONS: chest pain TECHNIQUE: One view of the chest was acquired. COMPARISON: [facility], , CHEST 2 VIEW, 01/19/2017, 15:08. FINDINGS: Surgical changes and devices: None. Lungs and pleura: Lungs are clear. No pleural effusions or pneumothorax. Mediastinum: Mediastinal contours appear normal. Heart size is normal. Bones and chest wall: No suspicious bony lesions. Overlying soft tissues appear unremarkable. IMPRESSION: No acute process. Dictated by: Marivel Sands M.D. on 03/01/2022 at 11:58 Approved by: Marivel Sands M.D. on 03/01/2022 at 11:58
[2022-03-01 11:27] LABS: Add Manual Diff / Slide Review NO; Basophils Absolute Auto 100 /uL (0-100); Basophils Percent Auto 0.7 % (0-2); Eosinophils Absolute Auto 100 /uL (0-450); Eosinophils Percent Auto 0.8 % (2-4); Hematocrit 44.7 % (36-46); Hemoglobin 14.4 g/dL (12.0-16.0); Lymphocytes Absolute Auto 4900 /uL (1100-4500); Lymphocytes Percent Auto 42.4 % (25-40); Mean Corpuscular HGB Conc 32.3 % (30-36); Mean Corpuscular Hemoglobin 31.1 PG (26-34); Mean Corpuscular Volume 96.4 fL (80-100); Monocytes Absolute Auto 1300 /uL (0-900); Neutrophils Absolute Auto 5200 /uL (1500-7000); Neutrophils Percent Auto 45.1 % (50-75); Platelet Count 182 X10^3/uL (150-400); Red Blood Cell Count 4.64 X10^6/uL (4.0-5.2); Red Cell Distribution Width 14.8 % (11.6-14.8); White Blood Cell Count 11.5 X10^3/uL (4.5-11.0)
--- NOTE | 2022-03-01 11:28 | PC.NURSE ---
Pt/spouse report a couple weeks of low HR readings on home pulse ox, 40s, with intermittent dizziness upon standing. Pt has swollen lower extremities, but edema has been worse than baseline. Reports she has been working with primary provider on decreasing the edema.
[2022-03-01 11:35] LABS: INR 2.2 (0.9-1.3); Prothrombin Time 24.9 SECONDS (10.1-12.7)
[2022-03-01 11:38] LABS: PTT Partial Thromboplastin Tim 34 SECONDS (26-36)
--- NOTE | 2022-03-01 11:38 | ED.ARRPALP ---
HPI - Arrhythmia/Palpitations General Chief Complaint: Arrhythmia/Palpitations Stated Complaint: pulse rate problem ref to the ED by x14 Time Seen by Provider: 03/01/22 11:19 Source: patient Mode of arrival: Ambulatory Limitations: no limitations History of Present Illness HPI narrative: 76-year-old female is on anticoagulation. Also has a history of hypothyroid. Is here for evaluation of approximately 14 days of episodes where she feels like her heart rate is going fast and then slow. This was picked up on her blood pressure cuff and also on a home pulse oximeter. She also has had occasional episodes where she becomes lightheaded. Sometimes this occurs when she stands up other times it occurs when she is already standing and walking. She uses a walker at baseline. She currently is asymptomatic. No chest pain. She does have swelling in her lower extremities but this is not new. She is an appoint with her primary doctor on of this week. He had been taking all of her medications as directed. Related Data Home Medications Medication Instructions Recorded Confirmed simvastatin 20 mg tablet (Zocor) 10 mg PO HS ##0 03/12/12 08/09/18 acetaminophen 500 mg tablet 500 mg PO Q6H PRN 10/09/17 08/09/18 (Tylenol Extra Strength) carvedilol 6.25 mg tablet 6.25 mg PO BID 10/09/17 08/09/18 levofloxacin 500 mg tablet 500 mg PO DAILY 10/09/17 08/09/18 levothyroxine 100 mcg capsule 100 mcg PO DAILY 10/09/17 08/09/18 omeprazole 20 mg capsule,delayed 20 mg PO DAILY 10/09/17 08/09/18 release ondansetron HCl 4 mg tablet 4 mg PO TID PRN 10/09/17 08/09/18 (Zofran) polyethylene glycol 3350 17 gram 17 gram PO DAILY 10/09/17 08/09/18 oral powder packet prednisone 5 mg tablet 5 mg PO DAILY 10/09/17 08/09/18 ranitidine HCl 150 mg capsule 300 mg PO DAILY 10/09/17 08/09/18 topiramate 25 mg capsule,extended 50 mg PO DAILY 10/09/17 08/09/18 release 24 hr warfarin 1 mg tablet (Coumadin) 2 mg PO DAILY 10/09/17 08/09/18 cholecalciferol (vitamin D3) 25 1,000 unit PO DAILY 07/13/18 08/09/18 mcg (1,000 unit) capsule warfarin 1 mg tablet 1 mg PO DAILY 07/13/18 08/09/18 furosemide 40 mg tablet 20 mg PO DAILY PRN 08/09/18 08/09/18 Allergies Allergy/AdvReac Type Severity Reaction Status Date / Time amoxicillin [AMOXICILLIN] Allergy Severe rash and Verified 03/01/22 11:02 diarrhea oxybutynin Allergy Severe tongue Verified 03/01/22 11:02 swells Sulfa (Sulfonamide Allergy Severe fever and Verified 03/01/22 11:02 Antibiotics) rash [SULFA (SULFONAMIDE ANTIBIOTICS)] NSAIDS (Non-Steroidal Allergy Unknown Verified 03/01/22 11:02 Anti-Inflamma [NSAIDS (NON-STEROIDAL ANTI-INFLAMMA] cephalexin Allergy rash Verified 03/01/22 11:02 codeine [CODEINE] AdvReac Mild headache Verified 03/01/22 11:02 duloxetine [From CYMBALTA] AdvReac Mild vomiting Verified 03/01/22 11:02 morphine [MORPHINE] AdvReac Mild vomiting Verified 03/01/22 11:02 nitrofurantoin AdvReac Mild vomiting Verified 03/01/22 11:02 [From MACROBID] carisoprodol AdvReac Verified 03/01/22 11:02 piroxicam [From Feldene] AdvReac Verified 03/01/22 11:02 tolterodine AdvReac Verified 03/01/22 11:02 Review of Systems Constitutional Constitutional: Reports system reviewed and no additional complaints, except as documented Cardiovascular Cardiovascular: Reports system reviewed and no additional complaints, except as documented Respiratory Respiratory: Reports system reviewed and no additional complaints, except as documented Gastrointestinal Gastrointestinal: Reports system reviewed and no additional complaints, except as documented Musculoskeletal Musculoskeletal: Reports system reviewed and no additional complaints, except as documented Integumentary/Breasts Skin/Breast: Reports system reviewed and no additional complaints, except as documented Neurologic Neurologic: Reports system reviewed and no additional complaints, except as documented Hematologic/Lymphatic On Anticoagulants: Yes Patient History Medical History DVT (deep venous thrombosis) Social History Smoking Status: Unknown if ever smoked Smoking Status: Unknown if ever smoked alcohol intake frequency: 0-2 drinks per day Substance Use Type: does not use Exam Initial Vital Signs Initial Vital Signs: Vital Signs Temperature 97.8 F 03/01/22 10:55 Pulse Rate 107 H 03/01/22 10:55 Respiratory Rate 18 03/01/22 10:55 Blood Pressure 150/72 H 03/01/22 10:55 Pulse Oximetry 97 03/01/22 10:55 Oxygen Delivery Method 03/01/22 10:55 HENMT Head: normal to inspection and normocephalic Resp Effort & Inspection: normal respiratory effort Auscultation: clear to auscultation bilaterally Cardio Rate: tachycardic Rhythm: regular rhythm GI Inspection: normal to inspection Skin General: no rashes or lesions noted Neuro General: patient alert, patient awake, patient oriented x3 and moves all extremities Extrem General: edema Psych Appearance: grossly normal and well kempt Scores GCS [place] coma scale eye opening: Spontaneous [place] coma scale verbal response: Orientated [place] coma scale motor response: Obey commands Miguel coma scale total score: 15 Course Orders Ordered: ED Orders 03/01/22 11:01 XR chest 1V Stat 03/01/22 11:08 EKG-12 Lead Stat 03/01/22 11:15 BNP [NT-proBNP (BNP-Adult 18+)] Stat COVID19 -Nasal RAPID/Pre-Proc Stat Complete Blood Count AUTO DIFF Stat Comprehensive Metabolic Panel Stat Lipase Stat Magnesium Stat Partial Thromboplastin Time Stat Prothrombin Time INR Stat Troponin & CK Cardiac Panel Stat 03/01/22 13:35 Urine Culture Stat Urine Microscopic Stat Vital Signs Vital signs: Vital Signs - 8 hr 03/01/22 10:55 03/01/22 11:00 03/01/22 11:01 Temperature 97.8 F Pulse Rate 107 H 104 H 105 H Respiratory Rate 18 22 22 Blood Pressure 150/72 H Pulse Oximetry 97 99 98 Oxygen Delivery Method Room Air Room Air 03/01/22 11:01 03/01/22 11:30 03/01/22 11:31 Temperature Pulse Rate 144 H 144 H Respiratory Rate 34 H 33 H Blood Pressure 155/66 H Pulse Oximetry 99 99 Oxygen Delivery Method 03/01/22 11:31 03/01/22 11:32 03/01/22 11:32 Temperature Pulse Rate 121 H Respiratory Rate 38 H Blood Pressure 80/62 L 120/89 Pulse Oximetry 98 Oxygen Delivery Method 03/01/22 12:00 03/01/22 12:00 03/01/22 12:30 Temperature Pulse Rate 91 H 130 H Respiratory Rate 34 H 30 H Blood Pressure 133/60 Pulse Oximetry 98 96 Oxygen Delivery Method 03/01/22 12:31 03/01/22 12:31 03/01/22 13:00 Temperature Pulse Rate 111 H 132 H Respiratory Rate 25 H 29 H Blood Pressure 148/67 H Pulse Oximetry 96 93 Oxygen Delivery Method 03/01/22 13:01 03/01/22 13:01 03/01/22 13:34 Temperature Pulse Rate 140 H 59 L Respiratory Rate 32 H Blood Pressure 138/64 Pulse Oximetry 96 Oxygen Delivery Method 03/01/22 13:37 03/01/22 13:37 03/01/22 14:00 Temperature Pulse Rate 154 H 93 H Respiratory Rate 38 H 21 Blood Pressure 190/83 H Pulse Oximetry 97 97 Oxygen Delivery Method 03/01/22 14:01 03/01/22 14:01 03/01/22 14:30 Temperature Pulse Rate 97 H 111 H Respiratory Rate 25 H 28 H Blood Pressure 192/81 H Pulse Oximetry 97 96 Oxygen Delivery Method 03/01/22 14:31 03/01/22 14:31 Temperature Pulse Rate 120 H Respiratory Rate 19 Blood Pressure 165/77 H Pulse Oximetry 96 Oxygen Delivery Method MDM - Arrhythmia/Palpitations Lab Data Attestation: I reviewed the patient's lab results. Result diagrams: 03/01/22 11:15 03/01/22 11:15 Labs: Lab Results 03/01/22 03/01/22 03/01/22 Range/Units 11:15 11:15 11:15 WBC 11.5 H (4.5-11.0) X10^3/uL RBC 4.64 (4.0-5.2) X10^6/uL Hgb 14.4 (12.0-16.0) g/dL Hct 44.7 (36-46) % MCV 96.4 (80-100) fL MCH 31.1 (26-34) PG MCHC 32.3 (30-36) % RDW 14.8 (11.6-14.8) % Plt Count 182 (150-400) X10^3/uL Neut % (Auto) 45.1 L (50-75) % Lymph % (Auto) 42.4 H (25-40) % [place] % (Auto) 11.0 (3-14) % Eos % (Auto) 0.8 L (2-4) % Baso % (Auto) 0.7 (0-2) % Neut # (Auto) 5200 (0472-4384) /uL Lymph # (Auto) 4900 H (0280-4221) /uL [place] # (Auto) 1300 H (0-900) /uL Eos # (Auto) 100 (0-450) /uL Baso # (Auto) 100 (0-100) /uL PT 24.9 H (10.1-12.7) SECONDS INR 2.2 H (0.9-1.3) APTT 34 (26-36) SECONDS Sodium 144 (137-145) mmol/L Potassium 2.8 L (3.4-5.1) mmol/L Chloride 101 (98-107) mmol/L Carbon Dioxide 29 (22-32) mmol/L BUN 46 H (7-17) mg/dL Creatinine 2.29 H (0.52-1.04) mg/dL Estimated GFR 21 L (>60) mL/min BUN/Creatinine Ratio 20.1 (6-22) Glucose 82 (80-110) mg/dL Calcium 9.5 (8.4-10.2) mg/dL Magnesium 2.0 (1.6-2.3) mg/dL Total Bilirubin 0.7 (0.2-1.3) mg/dL AST 42 H (14-36) IU/L ALT 39 H (<35) IU/L Alkaline Phosphatase 96 (38-126) U/L Total Creatine Kinase 34 (30-135) U/L CK-MB (CK-2) TNP CK-MB (CK-2) Rel Index TNP Troponin I 0.023 (0.01-0.034) ng/mL NT-Pro-B Natriuret Pep (<450) pg/mL Total Protein 7.0 (6.3-8.2) g/dL Albumin 4.3 (3.5-5.0) g/dL Globulin 2.7 (1.7-4.1) g/dL Albumin/Globulin Ratio 1.6 (1.0-2.8) Lipase 63 (23-300) U/L Urine RBC (0-5/HPF) Urine WBC (0-5/HPF) Ur Squamous Epith Cells (0-5/HPF) Urine Bacteria (None) Ur Culture Indicated? SARS-CoV-2 (PCR) (Negative) 03/01/22 03/01/22 03/01/22 Range/Units 11:15 11:15 13:35 WBC (4.5-11.0) X10^3/uL RBC (4.0-5.2) X10^6/uL Hgb (12.0-16.0) g/dL Hct (36-46) % MCV (80-100) fL MCH (26-34) PG MCHC (30-36) % RDW (11.6-14.8) % Plt Count (150-400) X10^3/uL Neut % (Auto) (50-75) % Lymph % (Auto) (25-40) % [place] % (Auto) (3-14) % Eos % (Auto) (2-4) % Baso % (Auto) (0-2) % Neut # (Auto) (0190-5746) /uL Lymph # (Auto) (7199-8305) /uL [place] # (Auto) (0-900) /uL Eos # (Auto) (0-450) /uL Baso # (Auto) (0-100) /uL PT (10.1-12.7) SECONDS INR (0.9-1.3) APTT (26-36) SECONDS Sodium (137-145) mmol/L Potassium (3.4-5.1) mmol/L Chloride (98-107) mmol/L Carbon Dioxide (22-32) mmol/L BUN (7-17) mg/dL Creatinine (0.52-1.04) mg/dL Estimated GFR (>60) mL/min BUN/Creatinine Ratio (6-22) Glucose (80-110) mg/dL Calcium (8.4-10.2) mg/dL Magnesium (1.6-2.3) mg/dL Total Bilirubin (0.2-1.3) mg/dL AST (14-36) IU/L ALT (<35) IU/L Alkaline Phosphatase (38-126) U/L Total Creatine Kinase (30-135) U/L CK-MB (CK-2) CK-MB (CK-2) Rel Index Troponin I (0.01-0.034) ng/mL NT-Pro-B Natriuret Pep 2190 H (<450) pg/mL Total Protein (6.3-8.2) g/dL Albumin (3.5-5.0) g/dL Globulin (1.7-4.1) g/dL Albumin/Globulin Ratio (1.0-2.8) Lipase (23-300) U/L Urine RBC None seen (0-5/HPF) Urine WBC 5-10/hpf H (0-5/HPF) Ur Squamous Epith Cells 1-5 /hpf (0-5/HPF) Urine Bacteria Many (>30) H (None) Ur Culture Indicated? Specimen cultured SARS-CoV-2 (PCR) Negative (Negative) Urine Dip Bedside Urine Glucose Negative Bedside Urine Bilirubin - Negative Bedside Urine Ketone - Negative Urine Specific [place] 1.025 Bedside Urine Occult Blood - Negative Bedside Urine pH 5.5 Bedside Urine Protein - Negative Bedside Urine Urobilinogen - Negative Bedside Urine Nitrite + Positive Bedside Urine Leukocytes - Negative Esterase Imaging Data Chest x-ray: Radiologist's Impresson: [place] [address] XRay Report Signed Patient: Christine Burger MR#: [id number] : 1945 Acct:[id number] Age/Sex: 76 / F Date of Service: 03/01/22 Loc: ED Accession Number: [id number] ?? Procedure: XR chest 1V Ordering Provider: Nasim Burgos D.O. PROCEDURE:? XR CHEST 1V ? INDICATIONS:? chest pain ? TECHNIQUE:? One view of the chest was acquired.? ? COMPARISON:? [facility], , CHEST 2 VIEW, 01/19/2017, 15:08. ? FINDINGS:? ? Surgical changes and devices:? None.? ? Lungs and pleura:? Lungs are clear.? No pleural effusions or pneumothorax.? ? Mediastinum:? Mediastinal contours appear normal.? Heart size is normal.? ? Bones and chest wall:? No suspicious bony lesions.? Overlying soft tissues appear unremarkable.? ? IMPRESSION:? No acute process. ? ? Dictated by: Marivel Sands M.D. on 03/01/2022 at 11:58 ? ? Approved by: Marivel Sands M.D. on 03/01/2022 at 11:58?? ECG Data Interpretation: Sinus rhythm with frequent PACs and bigeminy pattern. Ventricular rate 106 Normal QRS Normal QTC Nonspecific ST T wave changes MDM Narrative Medical decision making narrative: Patient is having frequent PACs and bigeminy pattern. Her heart rate has been anywhere from 80s to 130s in this pattern. Patient is not hypotensive. Her symptoms been going on for the past 2 weeks. Her workup here in the emergency department does not give a specific diagnosis of her symptoms. We did discuss that she potentially could be having arrhythmias that resolve on their own. She ambulated to the bathroom with her walker and stated that she felt at baseline. Review of her medical record does not show that she has had an echocardiogram in our system. She does not remember ever having an echocardiogram. This is probably not an unreasonable test for her to have however does not necessarily need admitted to the hospital to have this performed. She is not clinically in heart failure. Swelling she has in her lower extremities are baseline for her. Had a discussion with her and her at bedside. The plan will be is to discharge the patient home and have her keep her appointment with her primary doctor on of this week. I recommended that they talk with her primary doctor about the indications for Holter monitor/echocardiogram or potential referral to see Cardiology. Patient was given return precautions. She expressed understanding and agreement. Discharge Plan Departure Patient Disposition: Home Clinical Impression: Palpitations, Atrial premature contractions, Bilateral lower extremity edema Instructions: DI for Arrhythmias Activity Restrictions/Additional Instructions: I recommend that you keep your appointment with your primary doctor that is scheduled for . Continue to take all of your medications as directed. Return to the emergency department for any new or worsening symptoms. Prescriptions: No Action simvastatin [Zocor] 20 MG tablet 10 mg PO HS Qty: 0 warfarin 1 mg tablet 1 mg PO DAILY cholecalciferol (vitamin D3) 1,000 unit capsule 1,000 unit PO DAILY carvedilol 6.25 mg tablet 6.25 mg PO BID polyethylene glycol 3350 17 gram powder in packet 17 gram PO DAILY ondansetron HCl [Zofran] 4 mg tablet 4 mg PO TID PRN prednisone 5 mg tablet 5 mg PO DAILY acetaminophen [Tylenol Extra Strength] 500 mg tablet 500 mg PO Q6H PRN omeprazole 20 mg capsule,delayed release(DR/EC) 20 mg PO DAILY ranitidine HCl 150 mg capsule 300 mg PO DAILY warfarin [Coumadin] 1 mg tablet 2 mg PO DAILY levofloxacin 500 mg tablet 500 mg PO DAILY levothyroxine 100 mcg capsule 100 mcg PO DAILY topiramate 25 mg capsule,extended release 24hr 50 mg PO DAILY furosemide 40 mg tablet 20 mg PO DAILY PRN Referrals: Romie Dennis MD [Primary Care Provider] - Visit Report Forms: Patient Portal/API
[2022-03-01 11:53] LABS: Alanine Aminotransferase 39 IU/L (<35); Albumin 4.3 g/dL (3.5-5.0); Albumin Globulin Ratio 1.6 (1.0-2.8); Alkaline Phosphatase 96 U/L (38-126); Aspartate Aminotransferase 42 IU/L (14-36); BUN Creatinine Ratio 20.1 (6-22); Bilirubin Total 0.7 mg/dL (0.2-1.3); Blood Urea Nitrogen 46 mg/dL (7-17); COVID19 -Nasal RAPID Negative (Negative); Calcium 9.5 mg/dL (8.4-10.2); Carbon Dioxide 29 mmol/L (22-32); Chloride 101 mmol/L (98-107); Creatine Kinase 34 U/L (30-135); Estimated Glomerular Filt Rate 21 mL/min (>60); Globulin 2.7 g/dL (1.7-4.1); Glucose 82 mg/dL (80-110); HEMOLYSIS < 15 (0-50); Lipase 63 U/L (23-300); Potassium 2.8 mmol/L (3.4-5.1); Sodium 144 mmol/L (137-145)
[2022-03-01 12:03] LABS: Troponin I 0.023 ng/mL (0.01-0.034)
[2022-03-01 14:08] LABS: Bacteria Urine Many (>30); Culture Indicated Urine Specimen Cultured; RBC Urine None Seen (0-5/HPF); Squamous Epithelial Cell Urine 1-5 /HPF (0-5/HPF); WBC Urine 5-10/HPF (0-5/HPF)
[2022-03-01 14:27] LABS: NT-proBNP (BNP-Adult 18+) 2190 pg/mL (<450)
--- NOTE | 2022-03-01 15:09 | PC.NURSE ---
Ambulated patient with REGISTERED PHYSICAL THERAPIST and the patient heart rate dropped into the 60's and oxygen saturation lowered into the 80's. I notified the provider and no new orders were given. Patient is discharging home with plan to have a halter monitor for heart rate.
== END 2022-03-01 15:05 | disposition home or self-care (01) ==
PROVIDERS: Emergency Provider Emergency Medicine; PCP Internal Medicine
DX: R00.2 Palpitations (principal); R60.0 Localized edema; I49.1 Atrial premature depolarization; Z79.01 Long term (current) use of anticoagulants; Z79.899 Other long term (current) drug therapy; Z20.822 Contact with and (suspected) exposure to COVID-19
CPT/HCPCS: 36415; 71045; 80053; 81003; 81015; 82550; 83690; 83735; 83880; 84484; 85025; 85610; 85730; 87077; 87086; 87186; 87635; 93005; 99284; C9803

== ENCOUNTER → 2022-03-07 13:21 | Outpatient (CLI) | payer MEDICARE, OTHER, SELFPAY ==
[2022-03-07 14:12] LABS: Hematocrit 43.5 % (36-46); Hemoglobin 14.4 g/dL (12.0-16.0)
[2022-03-07 16:59] LABS: BUN Creatinine Ratio 22.1 (6-22); Blood Urea Nitrogen 51 mg/dL (7-17); Calcium 9.5 mg/dL (8.4-10.2); Carbon Dioxide 31 mmol/L (22-32); Chloride 97 mmol/L (98-107); Estimated Glomerular Filt Rate 21 mL/min (>60); Glucose 109 mg/dL (80-110); HEMOLYSIS < 15 (0-50); Potassium 2.8 mmol/L (3.4-5.1); Sodium 139 mmol/L (137-145)
[2022-03-07 17:08] LABS: NT-proBNP (BNP-Adult 18+) 2560 pg/mL (<450)
[2022-03-07 17:13] LABS: Creatinine Urine Random 108.8 mg/dL
[2022-03-07 17:21] LABS: Protein (Total) Urine Random < 5 mg/dL (0-12); Protein Creatinine Ratio Urine < 0.04 GRAM/24H
[2022-03-09 07:36] LABS: Parathyroid Hormone Int 117 pg/mL (15-65)
== END ==
PROVIDERS: PCP Internal Medicine; Referring Provider Student in an Organized Health Care Education/Training Program; Visit Provider Student in an Organized Health Care Education/Training Program
DX: I50.32 Chronic diastolic (congestive) heart failure (principal); N05.9 Unspecified nephritic syndrome with unspecified morphologic changes; D64.9 Anemia, unspecified; N25.81 Secondary hyperparathyroidism of renal origin; R80.9 Proteinuria, unspecified
CPT/HCPCS: 36415; 80048; 82570; 83880; 83970; 84156; 85014; 85018

== ENCOUNTER 2022-03-08 17:29 | Observation (INO) | payer MEDICARE, OTHER, SELFPAY ==
[2022-03-08] VITALS (11 sets, daily range): BP systolic 112–169; BP diastolic 59–78; PULSE 48–135; RESP 18–37; TEMP 35.8–36.4; O2SAT 95–99; BMI 28.3; BMI 27.5
--- NOTE | 2022-03-08 17:44 | DI.RAD.S_ITS ---
PROCEDURE: XR CHEST 1V INDICATIONS: chest pain TECHNIQUE: One view of the chest was acquired. COMPARISON: [facility], CT, CT ABDOMEN PELVIS WO CON, 05/13/2019, 13:47. [facility], CR, XR CHEST 1V, 03/01/2022, 11:02. [facility], CR, CHEST 2 VIEW, 01/19/2017, 15:08. FINDINGS: Surgical changes and devices: Cholecystectomy clips. Lungs and pleura: No consolidation. Small nodular opacity in the right mid lung field is unchanged. No pleural effusions or pneumothorax. Mediastinum: Mediastinal contours appear normal. Heart size is normal. Bones and chest wall: No suspicious bony lesions. Overlying soft tissues appear unremarkable. IMPRESSION: No acute abnormality identified. Small pulmonary nodule in the right mid lung field is unchanged. This likely corresponds to the small pulmonary nodule seen on CT 05/13/2019. Follow-up CT chest could be helpful. Dictated by: Chevy Marcos M.D. on 03/08/2022 at 20:10 Approved by: Chevy Marcos M.D. on 03/08/2022 at 20:13
[2022-03-08 18:13] LABS: Add Manual Diff / Slide Review NO; Basophils Absolute Auto 100 /uL (0-100); Basophils Percent Auto 0.9 % (0-2); Eosinophils Absolute Auto 100 /uL (0-450); Eosinophils Percent Auto 0.7 % (2-4); Hematocrit 44.2 % (36-46); Hemoglobin 14.6 g/dL (12.0-16.0); Lymphocytes Absolute Auto 5600 /uL (1100-4500); Lymphocytes Percent Auto 43.7 % (25-40); Mean Corpuscular Hemoglobin 31.6 PG (26-34); Mean Corpuscular Volume 95.9 fL (80-100); Monocytes Absolute Auto 1500 /uL (0-900); Neutrophils Absolute Auto 5500 /uL (1500-7000); Neutrophils Percent Auto 42.7 % (50-75); Platelet Count 157 X10^3/uL (150-400); Red Blood Cell Count 4.61 X10^6/uL (4.0-5.2); Red Cell Distribution Width 14.6 % (11.6-14.8); White Blood Cell Count 12.9 X10^3/uL (4.5-11.0)
[2022-03-08 18:26] LABS: INR 1.9 (0.9-1.3); Prothrombin Time 21.5 SECONDS (10.1-12.7)
[2022-03-08 18:29] LABS: PTT Partial Thromboplastin Tim 30 SECONDS (26-36)
[2022-03-08 18:35] LABS: Alanine Aminotransferase 28 IU/L (<35); Albumin 4.2 g/dL (3.5-5.0); Albumin Globulin Ratio 1.5 (1.0-2.8); Alkaline Phosphatase 103 U/L (38-126); Aspartate Aminotransferase 40 IU/L (14-36); Bilirubin Total 0.7 mg/dL (0.2-1.3); Blood Urea Nitrogen 56 mg/dL (7-17); Calcium 9.6 mg/dL (8.4-10.2); Carbon Dioxide 30 mmol/L (22-32); Chloride 96 mmol/L (98-107); Creatine Kinase 46 U/L (30-135); Estimated Glomerular Filt Rate 22 mL/min (>60); Globulin 2.8 g/dL (1.7-4.1); Glucose 89 mg/dL (80-110); Lipase 140 U/L (23-300); Potassium 2.9 mmol/L (3.4-5.1); Sodium 139 mmol/L (137-145)
[2022-03-08 18:42] LABS: HEMOLYSIS 51 (0-50)
--- NOTE | 2022-03-08 18:43 | ED_ITS ---
HPI - Chest Pain General Chief Complaint: Chest Pain Stated Complaint: weak, dizzy Time Seen by Provider: 03/08/22 18:02 History of Present Illness HPI narrative: 76-year-old patient with a history of hypertension, hyperlipidemia, autoimmune disease, chronic kidney disease, hypothyroidism, reflux, prior DVT currently anticoagulated on Coumadin and pulmonary fibrosis presents with increasing weakness, chest pain and pressure along with dizziness and complaints of increasingly erratic heartbeat.. She was seen in the emergency department on 03/01 complaining of 14 days of episodes of rapid heart rate. The final diagnosis for that visit was frequent PACs. She followed up with her primary care doctor 2 days later who ordered an echocardiogram and a Zio patch neither of which have been scheduled a received. She was referred to [facility], still waiting to hear results of referral. She notes that in the meantime she is having increasing weakness dizziness to the point of near syncope. She notes that she actually is better when she is lying down worse when she is standing up. She would seen her kidney doctor who recently discontinued carvedilol and started hydrochlorothiazide and she is wondering if this might be contributing to issues. She is a history of chronic right hip pain and is requesting some pain medication to help with this while she is waiting in the emergency department. She does not describe any recent viral type syndromes over the last number of months. She is not complaining of cough, headache, vomiting or diarrhea. Related Data Home Medications Medication Instructions Recorded Confirmed simvastatin 20 mg tablet (Zocor) 20 mg PO HS ##0 03/12/12 03/08/22 acetaminophen 500 mg tablet 500 mg PO Q6H PRN Pain (Scale 10/09/17 03/08/22 (Tylenol Extra Strength) Score 4-6) levothyroxine 100 mcg capsule 100 mcg PO DAILY 10/09/17 03/08/22 omeprazole 20 mg capsule,delayed 20 mg PO BID 10/09/17 03/08/22 release ondansetron HCl 4 mg tablet 4 mg PO TID PRN nausea 10/09/17 03/08/22 (Zofran) polyethylene glycol 3350 17 gram 17 gram PO DAILY 10/09/17 03/08/22 oral powder packet prednisone 5 mg tablet 5 mg PO DAILY 10/09/17 03/08/22 ranitidine HCl 150 mg capsule 300 mg PO DAILY PRN Allergy 10/09/17 03/08/22 Symptoms topiramate 25 mg capsule,extended 50 mg PO BEDTIME 10/09/17 03/08/22 release 24 hr cholecalciferol (vitamin D3) 25 1,000 unit PO DAILY 07/13/18 03/08/22 mcg (1,000 unit) capsule warfarin 1 mg tablet 1 mg PO DAILY 07/13/18 03/08/22 furosemide 40 mg tablet 20 mg PO DAILY 08/09/18 03/08/22 hydrochlorothiazide 12.5 mg tablet 12.5 mg PO DAILY 03/08/22 03/08/22 Allergies Allergy/AdvReac Type Severity Reaction Status Date / Time amoxicillin [AMOXICILLIN] Allergy Severe rash and Verified 03/01/22 11:02 diarrhea oxybutynin Allergy Severe tongue Verified 03/01/22 11:02 swells Sulfa (Sulfonamide Allergy Severe fever and Verified 03/01/22 11:02 Antibiotics) rash [SULFA (SULFONAMIDE ANTIBIOTICS)] NSAIDS (Non-Steroidal Allergy Unknown Verified 03/01/22 11:02 Anti-Inflamma [NSAIDS (NON-STEROIDAL ANTI-INFLAMMA] cephalexin Allergy rash Verified 03/01/22 11:02 codeine [CODEINE] AdvReac Mild headache Verified 03/01/22 11:02 duloxetine [From CYMBALTA] AdvReac Mild vomiting Verified 03/01/22 11:02 morphine [MORPHINE] AdvReac Mild vomiting Verified 03/01/22 11:02 nitrofurantoin AdvReac Mild vomiting Verified 03/01/22 11:02 [From MACROBID] carisoprodol AdvReac Verified 03/01/22 11:02 piroxicam [From Feldene] AdvReac Verified 03/01/22 11:02 tolterodine AdvReac Verified 03/01/22 11:02 Review of Systems Review of Systems Narrative: Remainder of complete review of systems is otherwise unremarkable except for that included in the HPI. Patient History Medical History (Updated 03/08/22 @ 19:52 by Tereza Pablo MD) Autoimmune disease Bilateral lower extremity edema Chronic anticoagulation Chronic kidney disease Hyperlipidemia Hypertension Left leg DVT Renal insufficiency Social History household members: spouse Smoking Status: Never smoker alcohol intake: current Smoking Status: Unknown if ever smoked alcohol intake frequency: 0-2 drinks per day Substance Use Type: does not use Exam Initial Vital Signs Initial Vital Signs: Vital Signs Temperature 96.5 F L 03/08/22 17:35 Pulse Rate 53 L 03/08/22 17:35 Respiratory Rate 18 03/08/22 17:35 Blood Pressure 169/74 H 03/08/22 17:35 Pulse Oximetry 97 03/08/22 17:35 Oxygen Delivery Method 03/08/22 17:35 General: Frail-appearing but in no acute distress. Able to give a complete and coherent history. Well-nourished well-developed HEENT: Moist mucous membranes, normal sclera with reactive pupils, Neck: Minimal JVD, supple Respiratory: Lungs with crackles in bilateral lower lung castro. No wheezing no consolidated findings,. Full and symmetrical air movement Cardiac: Irregular, intermittent episodes of tachycardia, no murmurs Abdomen: Soft, nontender, good bowel tones, no flank pain Skin: Warm and dry, no rashes Neurologic: Globally weak but Grossly neurologically intact with no obvious asymmetries or abnormalities Extremities: No trauma, well perfused, chronic venous stasis changes, 2+ lower extremity edema on the right (described as chronic and unchanged, 1+ on the left. Right is chronically larger than the left. Psych: Cooperative, appropriate insight and affect Course Orders Ordered: Acetaminophen (Acetaminophen 325 Mg Tablet) 650 mg PO Q6H PRN PRN Reason: Fever/Mild Pain (1-3) Aspirin (Aspirin Ec 81 Mg Tablet) 81 mg PO DAILY [facility] Atorvastatin Calcium (Atorvastatin 20 Mg Tablet) 10 mg PO BEDTIME [facility] Enoxaparin Sodium (Enoxaparin 30 Mg/0.3 Ml Syringe) 30 mg SUBCUT DAILY [facility] Hydromorphone HCl (Hydromorphone 2 Mg Tablet) 2 mg PO Q6HR PRN PRN Reason: Pain, Severe (7-10) Furosemide 100 mg/ Sodium (Chloride) 50 mls @ 2.5 mls/hr IV CONT [facility] Levothyroxine Sodium (Levothyroxine 100 Mcg Tablet) 100 mcg PO QACBREAK [facility] Last Admin: 03/09/22 08:04 Dose: 100 mcg Documented By: MIKE Naloxone HCl (Naloxone 0.4 Mg/Ml Vial) 0.2 mg IV Q2MIN PRN PRN Reason: Opiate Reversal Non-Formulary Medication (Topiramate) 50 mg PO DAILY [facility] Ondansetron HCl (Ondansetron 4 Mg/2 Ml Inj) 4 mg IV Q8HR PRN PRN Reason: Nausea And Vomiting Pantoprazole Sodium (Pantoprazole Dr 20 Mg Tablet) 20 mg PO QACBREAK [facility] Last Admin: 03/09/22 08:04 Dose: 20 mg Documented By: MIKE Polyethylene Glycol (Polyethylene Glycol 3350 17 Gm Powd.Pack) 17 gm PO DAILY [facility] Potassium Chloride (Potassium Chloride 20 Meq Tab) 40 meq PO BIDWM [facility] Last Admin: 03/09/22 08:04 Dose: Not Given Documented By: MIKE Prednisone (Prednisone 5 Mg Tablet) 5 mg PO DAILY [facility] Sennosides (Sennosides 8.6 Mg Tablet) 17.2 mg PO BEDTIME [facility] Last Admin: 03/09/22 00:04 Dose: Not Given Documented By: MARILOU Discontinued Medications Carvedilol (Carvedilol 3.125 Mg Tablet) 6.25 mg PO NOW ONE Stop: 03/08/22 19:09 Last Admin: 03/08/22 19:34 Dose: 6.25 mg Documented By: HALLE Furosemide (Furosemide 40 Mg/4 Ml Vial) 40 mg IV NOW ONE Stop: 03/08/22 19:09 Last Admin: 03/08/22 19:36 Dose: 40 mg Documented By: HALLE POTASSIUM CHLORIDE IN WATER (Potassium Cl 10 Meq/100 Ml Kiara) 10 meq in 100 mls @ 100 mls/hr IV Q1H [facility] Stop: 03/08/22 23:14 Last Admin: 03/09/22 00:03 Dose: 100 mls/hr Documented By: Infusion: 03/08/22 23:02 Dose: 100 mls/hr Documented By: Admin: 03/08/22 22:02 Dose: 100 mls/hr Documented By: Infusion: 03/08/22 21:57 Dose: 100 mls/hr Documented By: Admin: 03/08/22 20:57 Dose: 100 mls/hr Documented By: Infusion: 03/08/22 20:38 Dose: 100 mls/hr Documented By: Admin: 03/08/22 19:38 Dose: 100 mls/hr Documented By: HALLE Furosemide 100 mg/ Sodium (Chloride) 60 mls @ 3 mls/hr IV CONT [facility] Last Admin: 03/09/22 04:48 Dose: 5 mg/hr, 3 mls/hr Documented By: MARILOU Oxycodone/Acetaminophen (Oxycodone/Acetaminophen 5/325 Tablet) 2 tab PO NOW ONE Stop: 03/08/22 19:09 Last Admin: 03/08/22 19:35 Dose: 2 tab Documented By: HALLE Potassium Chloride (Potassium Chloride 20 Meq Tab) 40 meq PO NOW ONE Stop: 03/08/22 19:09 Last Admin: 03/08/22 19:35 Dose: 40 meq Documented By: HALLE Vital Signs Vital signs: Vital Signs - 8 hr 03/08/22 17:35 03/08/22 19:02 03/08/22 19:30 Temperature 96.5 F L Pulse Rate 53 L 97 H Respiratory Rate 18 25 H Blood Pressure 169/74 H 139/65 Pulse Oximetry 97 99 Oxygen Delivery Method Room Air 03/08/22 19:30 03/08/22 20:00 03/08/22 20:00 Temperature Pulse Rate 95 H 95 H Respiratory Rate 30 H 24 Blood Pressure 158/78 H Pulse Oximetry 97 99 Oxygen Delivery Method MDM - Chest Pain Lab Data Result diagrams: 03/09/22 06:46 03/09/22 06:46 Labs: Lab Results 03/08/22 03/08/22 03/08/22 Range/Units 17:53 17:53 17:53 WBC 12.9 H (4.5-11.0) X10^3/uL RBC 4.61 (4.0-5.2) X10^6/uL Hgb 14.6 (12.0-16.0) g/dL Hct 44.2 (36-46) % MCV 95.9 (80-100) fL MCH 31.6 (26-34) PG MCHC 33.0 (30-36) % RDW 14.6 (11.6-14.8) % Plt Count 157 (150-400) X10^3/uL Neut % (Auto) 42.7 L (50-75) % Lymph % (Auto) 43.7 H (25-40) % [place] % (Auto) 12.0 (3-14) % Eos % (Auto) 0.7 L (2-4) % Baso % (Auto) 0.9 (0-2) % Neut # (Auto) 5500 (7107-7736) /uL Lymph # (Auto) 5600 H (2920-8083) /uL [place] # (Auto) 1500 H (0-900) /uL Eos # (Auto) 100 (0-450) /uL Baso # (Auto) 100 (0-100) /uL PT 21.5 H (10.1-12.7) SECONDS INR 1.9 H (0.9-1.3) APTT 30 (26-36) SECONDS Sodium 139 (137-145) mmol/L Potassium 2.9 L (3.4-5.1) mmol/L Chloride 96 L (98-107) mmol/L Carbon Dioxide 30 (22-32) mmol/L BUN 56 H (7-17) mg/dL Creatinine 2.24 H (0.52-1.04) mg/dL Estimated GFR 22 L (>60) mL/min BUN/Creatinine Ratio 25.0 H (6-22) Glucose 89 (80-110) mg/dL Calcium 9.6 (8.4-10.2) mg/dL Magnesium 2.0 (1.6-2.3) mg/dL Total Bilirubin 0.7 (0.2-1.3) mg/dL AST 40 H (14-36) IU/L ALT 28 (<35) IU/L Alkaline Phosphatase 103 (38-126) U/L Total Creatine Kinase 46 (30-135) U/L CK-MB (CK-2) TNP CK-MB (CK-2) Rel Index TNP Troponin I 0.033 (0.01-0.034) ng/mL NT-Pro-B Natriuret Pep (<450) pg/mL Total Protein 7.0 (6.3-8.2) g/dL Albumin 4.2 (3.5-5.0) g/dL Globulin 2.8 (1.7-4.1) g/dL Albumin/Globulin Ratio 1.5 (1.0-2.8) Lipase 140 D (23-300) U/L Procalcitonin (<0.5) ng/mL TSH (0.47-4.68) uIU/mL 03/08/22 03/08/22 03/08/22 Range/Units 17:53 17:53 17:53 WBC (4.5-11.0) X10^3/uL RBC (4.0-5.2) X10^6/uL Hgb (12.0-16.0) g/dL Hct (36-46) % MCV (80-100) fL MCH (26-34) PG MCHC (30-36) % RDW (11.6-14.8) % Plt Count (150-400) X10^3/uL Neut % (Auto) (50-75) % Lymph % (Auto) (25-40) % [place] % (Auto) (3-14) % Eos % (Auto) (2-4) % Baso % (Auto) (0-2) % Neut # (Auto) (0308-5486) /uL Lymph # (Auto) (6375-7466) /uL [place] # (Auto) (0-900) /uL Eos # (Auto) (0-450) /uL Baso # (Auto) (0-100) /uL PT (10.1-12.7) SECONDS INR (0.9-1.3) APTT (26-36) SECONDS Sodium (137-145) mmol/L Potassium (3.4-5.1) mmol/L Chloride (98-107) mmol/L Carbon Dioxide (22-32) mmol/L BUN (7-17) mg/dL Creatinine (0.52-1.04) mg/dL Estimated GFR (>60) mL/min BUN/Creatinine Ratio (6-22) Glucose (80-110) mg/dL Calcium (8.4-10.2) mg/dL Magnesium (1.6-2.3) mg/dL Total Bilirubin (0.2-1.3) mg/dL AST (14-36) IU/L ALT (<35) IU/L Alkaline Phosphatase (38-126) U/L Total Creatine Kinase (30-135) U/L CK-MB (CK-2) CK-MB (CK-2) Rel Index Troponin I (0.01-0.034) ng/mL NT-Pro-B Natriuret Pep 2220 H (<450) pg/mL Total Protein (6.3-8.2) g/dL Albumin (3.5-5.0) g/dL Globulin (1.7-4.1) g/dL Albumin/Globulin Ratio (1.0-2.8) Lipase (23-300) U/L Procalcitonin 0.13 (<0.5) ng/mL TSH 2.93 (0.47-4.68) uIU/mL Imaging Data Chest x-ray: My Impression: Cardiomegaly with interstitial findings. No consolidated finding to suggest bacterial pneumonia. No pneumothorax. ECG Data Interpretation: Rate of 97 sinus rhythm with frequent PACs/bigeminy Normal axis No acute ischemic changes MDM Narrative Medical decision making narrative: 76-year-old woman with erratic heart rate for at least the last 3 weeks. EKGs have consistently shown frequent PACs. She is ranging from 80s and simple sinus up to 140 with frequent PACs/bigeminy and palpable pulse 70. Clinically has mild congestive heart failure, orthostatic hypotension with increasing dizziness and weakness. Does not appear to be any acute coronary syndrome issues or infectious etiologies. Symptoms seem to get worse after her carvedilol was discontinued hydrochlorothiazide was initiated. She does have moderate hypokalemia at 2.9, her chronic kidney disease is stable. She is been given IV and oral potassium. Small dose of IV Lasix. I have given her oral carvedilol. At this time I believe she is having increased sinus arrhythmia that is causing congestive heart failure and the hydrochlorothiazide is causing hypokalemia which is exacerbating the sinus arrhythmia. She had been taken off the carvedilol originally because she was having episodes of bradycardia down into the 40s and they thought that was the explanation for the dizziness she is continued to experience. Care is reviewed with her daughter and with patient and . Questions are answered. I am going to recommend hospitalization for potassium replacement, diuresis, echocardiogram. Discharge Plan Departure Patient Disposition: Admitted as Observation Clinical Impression: Sinus arrhythmia, Acute CHF (congestive heart failure), Hypokalemia Admit Date/Time: 03/08/22 20:39 Admit Provider: Beverley Pendleton
[2022-03-08 18:46] LABS: Troponin I 0.033 ng/mL (0.01-0.034)
[2022-03-08] MEDS: carvediloL 3.125 MG TABLET 6.25 MG PO (19:34)
[2022-03-08] MEDS: OXYCODONE/ACETAMINOPHEN 5/325 TABLET 2 TAB PO (19:35)
[2022-03-08] MEDS: POTASSIUM CHLORIDE 20 MEQ TAB 40 MEQ PO (19:35)
[2022-03-08] MEDS: FUROSEMIDE 40 MG/4 ML VIAL IV (19:36)
[2022-03-08] MEDS: POTASSIUM CHLORIDE IN WATER 10 MEQ/100 ML PIGGYBACK 100 MEQ IV ×3 (19:38→22:02)
--- NOTE | 2022-03-08 22:23 | DI.ECHO.S_ITS ---
[place] [facility]---------+ [facility] +---------+ : : [address] : : : : [id number] : : : : Phone: [phone] Echocardiogram Report + + :Name: MARCIAL BLISS Study Date: 03/09/2022 Height: 63 in : :[facility] ReadingLocation: Weight: 160 lb : : Gender: Female BSA: 1.8 m2 : :: 1945 Age: 76 yrs BP: 122/66 mmHg: :Reason For Study: CONGESTIVE HEART FAILURE : :Ordering Physician: CLARE, : :TRAVIS Performed By: Lian Cuellar : :Referring: TRAVIS SPARKS : + + Interpretation Summary The ejection fraction is estimated to be 60-65%. There is mild aortic regurgitation. There is mild mitral annular calcification. Procedure: A two-dimensional transthoracic echocardiogram with color flow and Doppler was performed. The study quality was technically adequate. There is no prior echocardiogram noted for this patient. The patient was in sinus rhythm with heart rates between 88-107 bpm during the exam. Left Ventricle: The left ventricle is normal in size and wall thickness. The ejection fraction is estimated to be 60-65%. Left ventricular wall motion is normal. Right Ventricle: The right ventricle is normal size. Right ventricular systolic function is borderline reduced. Atria: The left atrial size is normal. Right atrial size is normal. There is no Doppler evidence for an interatrial shunt. Mitral Valve: The mitral valve leaflets appear borderline thickened, but open well. There is mild mitral annular calcification. There is trace mitral regurgitation. Aortic Valve: The aortic valve is trileaflet. The aortic valve opens well. There is no aortic valve stenosis. There is mild aortic regurgitation. Tricuspid Valve: The tricuspid valve is normal in structure and function. There is trace tricuspid regurgitation. Pulmonary artery pressures cannot be estimated because of the lack of a measurable TR jet velocity. Pulmonic Valve: The pulmonic valve leaflets are thin and pliable; valve motion is normal. There is no pulmonic valvular regurgitation. Great Vessels: The aortic root is normal size. The dimensions of the ascending aorta are normal. The inferior vena cava was not well visualized. Pericardium/ Pleura There is no pericardial effusion. There is no pleural effusion. MMode/2D Measurements & Calculations LVIDd: 4.6 cm LVOT diam: 1.9 cm LVIDs: 2.8 cm Ao root diam: 2.9 cm FS: 40.2 % asc Aorta Diam: 3.1 cm IVSd: 1.1 cm LVPWd: 0.99 cm LV armstrong. diameter/BSA (cm/m^2): 2.6 LV sys. diameter/BSA (cm/m^2): 1.6 LA A2 area: 19.0 cm2 RA long axis: 5.5 cm LA A4 area: 17.8 cm2 RA area: 16.2 cm2 LA length (vol): 5.7 cm RA vol: 40.5 ml LA vol: 50.6 ml RA : 23.0 ml/m2 LA vol index: 28.8 ml/m2 RVD1 (basal): 3.3 cm RVD2 (mid): 3.0 cm TAPSE: 1.6 cm Doppler Measurements & Calculations Ao V2 max: 175.4 cm/sec LVOT Max Porter: 87.4 cm/sec Ao V2 mean: 112.3 cm/sec LV V1 max P.1 mmHg Ao max P.3 mmHg LV V1 VTI: 19.2 cm Ao mean P.9 mmHg JOE(I,D): 1.5 cm2 Ao V2 VTI: 34.6 cm JOE(V,D): 1.3 cm2 sev ratio: 0.56 JOE indexed to BSA (cm^2/m^2): 0.85 AI P1/2t: 827.6 msec AI dec slope: 121.1 cm/sec2 MV E max porter: 77.7 cm/sec PA V2 max: 82.7 cm/sec MV A max porter: 102.8 cm/sec PA V2 mean: 59.8 cm/sec MV E/A: 0.76 PA mean P.6 mmHg Med Peak E' Porter: 5.0 cm/sec PA pr(Accel): 17.3 mmHg E/E' med: 15.5 Lat Peak E' Porter: 5.2 cm/sec E/E' lat: 15.0 E/e' average: 15.3 MV dec time: 0.31 sec SV(LVOT): 51.9 ml Reading Physician:10:48 AM
[2022-03-08 22:24] LABS: NT-proBNP (BNP-Adult 18+) 2220 pg/mL (<450)
[2022-03-08 22:46] LABS: Thyroid Stimulating Hormone 2.93 uIU/mL (0.47-4.68)
[2022-03-08 22:58] LABS: Procalcitonin 0.13 ng/mL (<0.5)
[2022-03-08 23:37] LABS: Adenovirus Not Detected (Not Detect); B. parapertussis Not Detected (Not Detecte); Bordetella pertussis Not Detected (Not Detecte); Chlamydophila pneumoniae Not Detected (Not Detect); Coronavirus 229E Not Detected (Not Detect); Coronavirus HKU1 Not Detected (Not Detect); Coronavirus NL 63 Not Detected (Not Detect); Coronavirus OC43 Not Detected (Not Detect); Human Metapneumovirus Not Detected (Not Detect); Human Rhinovirus/Enterovirus Not Detected (Not Detect); Influenza A Not Detected (Not Detect); Influenza B Not Detected (Not Detect); Mycoplasma pneumoniae Not Detected (Not Detect); Parainfluenza Virus 1 Not Detected (Not Detect); Parainfluenza Virus 2 Not Detected (Not Detect); Parainfluenza Virus 3 Not Detected (Not Detect); Parainfluenza Virus 4 Not Detected (Not Detect); Respiratory Syncytial Virus Not Detected (Not Detect); SARS- CoV-2 Not Detected (Not Detecte)
[2022-03-09] VITALS (9 sets, daily range): BP systolic 85–141; BP diastolic 50–98; PULSE 45–107; RESP 16–18; TEMP 36.1–36.6; O2SAT 95–98
[2022-03-09] MEDS: POTASSIUM CHLORIDE IN WATER 10 MEQ/100 ML PIGGYBACK 100 MEQ IV (00:03)
[2022-03-09 01:44] LABS: Troponin I 0.029 ng/mL (0.01-0.034)
[2022-03-09] MEDS: FUROSEMIDE 100 MG in SODIUM CHLORIDE 0.9% 50 ML IV (04:48)
[2022-03-09 07:19] LABS: Add Manual Diff / Slide Review NO; Basophils Absolute Auto 0 /uL (0-100); Basophils Percent Auto 0.3 % (0-2); Eosinophils Absolute Auto 100 /uL (0-450); Eosinophils Percent Auto 1.1 % (2-4); Hematocrit 41.3 % (36-46); Hemoglobin 13.8 g/dL (12.0-16.0); Lymphocytes Absolute Auto 4100 /uL (1100-4500); Lymphocytes Percent Auto 41.9 % (25-40); Mean Corpuscular HGB Conc 33.5 % (30-36); Mean Corpuscular Hemoglobin 31.8 PG (26-34); Mean Corpuscular Volume 95.1 fL (80-100); Monocytes Absolute Auto 1100 /uL (0-900); Monocytes Percent Auto 11.7 % (3-14); Neutrophils Absolute Auto 4300 /uL (1500-7000); Platelet Count 138 X10^3/uL (150-400); Red Blood Cell Count 4.35 X10^6/uL (4.0-5.2); Red Cell Distribution Width 14.4 % (11.6-14.8); White Blood Cell Count 9.7 X10^3/uL (4.5-11.0)
[2022-03-09 07:28] LABS: Cholesterol 145 mg/dL (140-199); HDL Cholesterol 47 mg/dL (40-60); LDL Cholesterol Calculated 65 mg/dL (<100); Magnesium 1.9 mg/dL (1.6-2.3); Triglycerides 165 mg/dL (35-150)
[2022-03-09 07:29] LABS: Alanine Aminotransferase 23 IU/L (<35); Albumin 3.5 g/dL (3.5-5.0); Albumin Globulin Ratio 1.9 (1.0-2.8); Alkaline Phosphatase 82 U/L (38-126); Aspartate Aminotransferase 27 IU/L (14-36); BUN Creatinine Ratio 22.7 (6-22); Bilirubin Total 0.6 mg/dL (0.2-1.3); Blood Urea Nitrogen 47 mg/dL (7-17); Calcium 8.7 mg/dL (8.4-10.2); Carbon Dioxide 30 mmol/L (22-32); Chloride 102 mmol/L (98-107); Estimated Glomerular Filt Rate 24 mL/min (>60); Globulin 1.8 g/dL (1.7-4.1); Glucose 84 mg/dL (80-110); HEMOLYSIS < 15 (0-50); INR 1.8 (0.9-1.3); Potassium 4.1 mmol/L (3.4-5.1); Prothrombin Time 21.2 SECONDS (10.1-12.7); Sodium 139 mmol/L (137-145); Total Protein 5.3 g/dL (6.3-8.2)
--- NOTE | 2022-03-09 07:33 | P.PN_ITS ---
Exam Vital Signs (past 8 hours): - 03/09/22 01:14 03/09/22 01:00 03/09/22 05:00 Temperature 97.6 F 97.2 F L Pulse Rate 46 L 52 L Pulse Rate [Orthostatic Lying] 46 L Pulse Rate [Orthostatic Sitting] 52 L Pulse Rate [Orthostatic Standing] 54 L Respiratory Rate 18 18 Blood Pressure 141/60 H 122/66 Blood Pressure [Orthostatic Lying] 141/60 H Blood Pressure [Orthostatic Sitting] 127/64 Blood Pressure [Orthostatic Standing] 85/50 L Pulse Oximetry 97 96 Oxygen Delivery Method Room Air Objective Labs Result Diagrams: 03/09/22 06:46 03/09/22 06:46 Labs: Laboratory Results - last 24 hr 03/08/22 03/08/22 03/08/22 17:53 17:53 17:53 WBC 12.9 H RBC 4.61 Hgb 14.6 Hct 44.2 MCV 95.9 MCH 31.6 MCHC 33.0 RDW 14.6 Plt Count 157 Neut % (Auto) 42.7 L Lymph % (Auto) 43.7 H [place] % (Auto) 12.0 Eos % (Auto) 0.7 L Baso % (Auto) 0.9 Neut # (Auto) 5500 Lymph # (Auto) 5600 H [place] # (Auto) 1500 H Eos # (Auto) 100 Baso # (Auto) 100 PT 21.5 H INR 1.9 H APTT 30 Sodium 139 Potassium 2.9 L Chloride 96 L Carbon Dioxide 30 BUN 56 H Creatinine 2.24 H Estimated GFR 22 L BUN/Creatinine Ratio 25.0 H Glucose 89 Calcium 9.6 Magnesium 2.0 Total Bilirubin 0.7 AST 40 H ALT 28 Alkaline Phosphatase 103 Total Creatine Kinase 46 CK-MB (CK-2) TNP CK-MB (CK-2) Rel Index TNP Troponin I 0.033 NT-Pro-B Natriuret Pep Total Protein 7.0 Albumin 4.2 Globulin 2.8 Albumin/Globulin Ratio 1.5 Triglycerides Cholesterol LDL Cholesterol, Calc HDL Cholesterol Lipase 140 D Procalcitonin TSH Chlamy pneumoniae PCR Adenovirus (PCR) B. pertussis DNA (PCR) B.parapertussis DNA PCR Coronavirus OC43 (PCR) Coronavirus HKU1 (PCR) Coronavirus 229E (PCR) SARS-CoV-2 (PCR) Coronavirus NL63 (PCR) Human Metapneumovir PCR Influenza Type A (PCR) Influenza Type B (PCR) M. pneumoniae (PCR) Parainfluenza 1 (PCR) Parainfluenza 2 (PCR) Parainfluenza 3 (PCR) Parainfluenza 4 (PCR) RSV (PCR) Entero/Rhino (PCR) 03/08/22 03/08/22 03/08/22 17:53 17:53 17:53 WBC RBC Hgb Hct MCV MCH MCHC RDW Plt Count Neut % (Auto) Lymph % (Auto) [place] % (Auto) Eos % (Auto) Baso % (Auto) Neut # (Auto) Lymph # (Auto) [place] # (Auto) Eos # (Auto) Baso # (Auto) PT INR APTT Sodium Potassium Chloride Carbon Dioxide BUN Creatinine Estimated GFR BUN/Creatinine Ratio Glucose Calcium Magnesium Total Bilirubin AST ALT Alkaline Phosphatase Total Creatine Kinase CK-MB (CK-2) CK-MB (CK-2) Rel Index Troponin I NT-Pro-B Natriuret Pep 2220 H Total Protein Albumin Globulin Albumin/Globulin Ratio Triglycerides Cholesterol LDL Cholesterol, Calc HDL Cholesterol Lipase Procalcitonin 0.13 TSH 2.93 Chlamy pneumoniae PCR Adenovirus (PCR) B. pertussis DNA (PCR) B.parapertussis DNA PCR Coronavirus OC43 (PCR) Coronavirus HKU1 (PCR) Coronavirus 229E (PCR) SARS-CoV-2 (PCR) Coronavirus NL63 (PCR) Human Metapneumovir PCR Influenza Type A (PCR) Influenza Type B (PCR) M. pneumoniae (PCR) Parainfluenza 1 (PCR) Parainfluenza 2 (PCR) Parainfluenza 3 (PCR) Parainfluenza 4 (PCR) RSV (PCR) Entero/Rhino (PCR) 03/08/22 03/09/22 03/09/22 22:35 00:00 06:46 WBC 9.7 RBC 4.35 Hgb 13.8 Hct 41.3 MCV 95.1 MCH 31.8 MCHC 33.5 RDW 14.4 Plt Count 138 L Neut % (Auto) 45.0 L Lymph % (Auto) 41.9 H [place] % (Auto) 11.7 Eos % (Auto) 1.1 L Baso % (Auto) 0.3 Neut # (Auto) 4300 Lymph # (Auto) 4100 [place] # (Auto) 1100 H Eos # (Auto) 100 Baso # (Auto) 0 PT INR APTT Sodium Potassium Chloride Carbon Dioxide BUN Creatinine Estimated GFR BUN/Creatinine Ratio Glucose Calcium Magnesium Total Bilirubin AST ALT Alkaline Phosphatase Total Creatine Kinase CK-MB (CK-2) CK-MB (CK-2) Rel Index Troponin I 0.029 NT-Pro-B Natriuret Pep Total Protein Albumin Globulin Albumin/Globulin Ratio Triglycerides Cholesterol LDL Cholesterol, Calc HDL Cholesterol Lipase Procalcitonin TSH Chlamy pneumoniae PCR Not detected Adenovirus (PCR) Not detected B. pertussis DNA (PCR) Not detected B.parapertussis DNA PCR Not detected Coronavirus OC43 (PCR) Not detected Coronavirus HKU1 (PCR) Not detected Coronavirus 229E (PCR) Not detected SARS-CoV-2 (PCR) Not detected Coronavirus NL63 (PCR) Not detected Human Metapneumovir PCR Not detected Influenza Type A (PCR) Not detected Influenza Type B (PCR) Not detected M. pneumoniae (PCR) Not detected Parainfluenza 1 (PCR) Not detected Parainfluenza 2 (PCR) Not detected Parainfluenza 3 (PCR) Not detected Parainfluenza 4 (PCR) Not detected RSV (PCR) Not detected Entero/Rhino (PCR) Not detected 03/09/22 03/09/22 03/09/22 06:46 06:46 06:46 WBC RBC Hgb Hct MCV MCH MCHC RDW Plt Count Neut % (Auto) Lymph % (Auto) [place] % (Auto) Eos % (Auto) Baso % (Auto) Neut # (Auto) Lymph # (Auto) [place] # (Auto) Eos # (Auto) Baso # (Auto) PT 21.2 H INR 1.8 H APTT Sodium 139 Potassium 4.1 D Chloride 102 Carbon Dioxide 30 BUN 47 H Creatinine 2.07 H Estimated GFR 24 L BUN/Creatinine Ratio 22.7 H Glucose 84 Calcium 8.7 Magnesium 1.9 Total Bilirubin 0.6 AST 27 ALT 23 Alkaline Phosphatase 82 Total Creatine Kinase CK-MB (CK-2) CK-MB (CK-2) Rel Index Troponin I NT-Pro-B Natriuret Pep Total Protein 5.3 L Albumin 3.5 Globulin 1.8 Albumin/Globulin Ratio 1.9 Triglycerides 165 H Cholesterol 145 LDL Cholesterol, Calc 65 HDL Cholesterol 47 Lipase Procalcitonin TSH Chlamy pneumoniae PCR Adenovirus (PCR) B. pertussis DNA (PCR) B.parapertussis DNA PCR Coronavirus OC43 (PCR) Coronavirus HKU1 (PCR) Coronavirus 229E (PCR) SARS-CoV-2 (PCR) Coronavirus NL63 (PCR) Human Metapneumovir PCR Influenza Type A (PCR) Influenza Type B (PCR) M. pneumoniae (PCR) Parainfluenza 1 (PCR) Parainfluenza 2 (PCR) Parainfluenza 3 (PCR) Parainfluenza 4 (PCR) RSV (PCR) Entero/Rhino (PCR) [facility] Medical History (Updated 03/08/22 @ 19:52 by Tereza Pablo MD) Autoimmune disease Bilateral lower extremity edema Chronic anticoagulation Chronic kidney disease Hyperlipidemia Hypertension Left leg DVT Renal insufficiency Social History household members: spouse Smoking Status: Never smoker alcohol intake: current Assessment & Plan Time Spent With Patient Critical Care time: I spent a total of [] minutes of critical care time on this patient's care today; this time is exclusive of procedural time. Quality VTE Deep Vein Thrombosis/Pulmonary Embolism Present on Admission: No
[2022-03-09 07:40] LABS: Troponin I 0.029 ng/mL (0.01-0.034)
[2022-03-09] MEDS: PANTOPRAZOLE DR 20 MG TABLET PO (08:04)
[2022-03-09] MEDS: LEVOTHYROXINE 100 MCG TABLET PO (08:04)
[2022-03-09] MEDS: predniSONE 5 MG TABLET PO (11:04)
[2022-03-09] MEDS: ASPIRIN EC 81 MG TABLET PO (11:04)
[2022-03-09] MEDS: OXYCODONE/ACETAMINOPHEN 5/325 TABLET 1 TAB PO ×2 (12:17→20:58)
--- NOTE | 2022-03-09 13:07 | CM.DANOTE ---
Addendum entered by NHAN Jha 03/10/22 15:44: ADD: PT rec 03.10.22- Home w/assist and HH. CM team will follow closely and discuss HH services w/patient and family upon discharge. Possibly tomorrow RAND Original Note: Pt is 86-year-old patient with a history of hypertension, hyperlipidemia, autoimmune disease, chronic kidney disease, hypothyroidism, reflux, prior DVT currently anticoagulated on Coumadin and pulmonary fibrosis presents with increasing weakness, chest pain and pressure along with dizziness and complaints of increasingly erratic heartbeat. Pt has Medicare A+B, Premera supplement, and PCP is Dr. Romie Dennis. SW completed initial dc assessment with pt and spouse. Plan: SW will continue to follow and make referrals as needed. NHAN Baez Discharge Planning/Care Management CM Discharge Assessment Start: 03/09/22 13:03 Freq: Status: Active Protocol: Document 03/09/22 13:03 (Rec: 03/09/22 13:07 [id number]) Discharge Planning Assessment Assigned Design Painter NHAN Baez DPOA/Assigned Designee Name none. LNOK is spouse, Bill Contact Information [phone] Advance Directives? No History Provided By Patient Has Patient been admitted in last 30 No days? Prior Living Arrangements House Comment Pt lives with spouse in 1 story home with ramp entrance. There are grab bars in pt's bathroom. Household Members spouse Type of transporation used prior to Relies on Others admit Comment Spouse drives patient. Independent with ADL's Yes Is patient alert and oriented? Yes Needs Assistance With Bathing Comment Pt is independent with most ADLs. Spouse, Bill provides help with showering. Caregiver for Another No DME Already Rented / Owned [facility] / Walker Comment TBD - pending recs from team. Barriers to Discharge No Discharge Plan Home Transportation Arrangement Spouse Bill will provide ride. Referrals Initiated None needed Whiteboard Updated in Patient Room with Yes name and ext. # of Design Painter Please Provide Date Initial DC 03/09/22 Assessment Was Performed
--- NOTE | 2022-03-09 13:10 | P.HP_ITS ---
History of Present Illness History of Present Illness Date Patient Seen: 03/08/22 Time Patient Seen: 22:34 Chief complaint: weak, dizzy Narrative: Christine Burger (Lorraine) is a bashir 76 year-old patient with a history of hypertension, hyperlipidemia, chronic hip pain, autoimmune disease, chronic kidney disease, hypothyroidism, reflux, prior DVT currently anticoagulated on Coumadin, bilateral lower extremity edema, Left venous insufficiency, and pulmonary fibrosis presents with increasing weakness, chest pain and pressure, dizziness and increasingly erratic heartbeat..? She was seen in the emergency department on 03/01 complaining of episodes of rapid heart rate x 14 days-DX frequent PACs.? She followed up with her PCP 2 days later-echocardiogram and a Zio patch ordered neither of which have been scheduled or obtained.?Her referral to [facility] is still pending.? She complains of increasing weakness dizziness to the point of near syncope.? Worse when lying down, than with standing.? Renal doctor recently discontinued carvedilol and started h ydrochlorothiazide. She is concerned that it is making her symptoms worse and she is wondering if this might be contributing to issues.?She denies cough, nasal congestion, sorethroat ,headache, fever, body aches, chills, abd pain, vomiting, diarrhea, pain with urination,freq, urgency, dysuria, incontinence, recent illness, injury or trauma. In the ED pt was In the ED B/P, HR RR, were all very labile, Hypotensive/hypertensive urgency 80/62-190/83 B/P, tachycardia/bradycardia 59-144 HR, tachpnic 18-38 RR, a poor historian making HPI, ROS questionable, pt unable to recall family hx or surgical HX. At the time of admit patient was resting comfortably in bed sleeping, on no 02, and in no distress. 96.5, 158/78, 95, 24, but 99% on rm air-pt did not have an observable increased labored work of breathing. WBC 12.9, Lymph 5,600, mono 1500. K+2.9, Cl 96, Bun 56, Investment Director 2.24, Glu 89, GFR 22. Lipase WNL, Mag stable 2.0, Trop: 0.033, CCL:24. SOFA:3 meeting sepsis criteria. BNP 2560, CXR: no acute cardiopulmonary process, noted small pulmonary nodule RT mid lung- Unchanged since 2019. I personally reviewed EKG: rate 97, accelerated junction rhythm with possible anteroseptal infarction. Patient admitted for sepsis without Shock per SOFA at the time of admit, with leukocytosis of unknown etiolo gy,acute new onset heart failure with Ventricular Tachycardia, bigeminy, and frequent PACs. Patient History Medical History Autoimmune disease Bilateral lower extremity edema Chronic anticoagulation Chronic kidney disease Hyperlipidemia Hypertension Left leg DVT Renal insufficiency Family & Social History Family history unavailable: No (Patient poor historian, unable to provide family hx.) Social History: household members spouse Prior Living Arrangements House Safety & Behavioral: Feels Safe in Current Yes Environment Been Physically Hurt or No Threatened By a Person Tobacco & Substance use: Smoking Status Never smoker alcohol intake current alcohol intake frequency 0-2 drinks per day Substance Use Type does not use Meds Home Medications and Allergies Home Medications Medication Instructions Recorded Confirmed Type simvastatin 20 mg tablet (Zocor) 20 mg PO HS ##0 03/12/12 03/08/22 History acetaminophen 500 mg tablet 500 mg PO Q6H PRN Pain (Scale 10/09/17 03/08/22 History (Tylenol Extra Strength) Score 4-6) levothyroxine 100 mcg capsule 100 mcg PO DAILY 10/09/17 03/08/22 History omeprazole 20 mg capsule,delayed 20 mg PO BID 10/09/17 03/08/22 History release ondansetron HCl 4 mg tablet 4 mg PO TID PRN nausea 10/09/17 03/08/22 History (Zofran) polyethylene glycol 3350 17 gram 17 gram PO DAILY 10/09/17 03/08/22 History oral powder packet prednisone 5 mg tablet 5 mg PO DAILY 10/09/17 03/08/22 History ranitidine HCl 150 mg capsule 300 mg PO DAILY PRN Allergy 10/09/17 03/08/22 History Symptoms topiramate 25 mg capsule,extended 50 mg PO BEDTIME 10/09/17 03/08/22 History release 24 hr cholecalciferol (vitamin D3) 25 1,000 unit PO DAILY 07/13/18 03/08/22 History mcg (1,000 unit) capsule warfarin 1 mg tablet 1 mg PO DAILY 07/13/18 03/08/22 History furosemide 40 mg tablet 20 mg PO DAILY 08/09/18 03/08/22 History hydrochlorothiazide 12.5 mg tablet 12.5 mg PO DAILY 03/08/22 03/08/22 History Allergies Allergy/AdvReac Type Severity Reaction Status Date / Time amoxicillin [AMOXICILLIN] Allergy Severe rash and Verified 03/01/22 11:02 diarrhea oxybutynin Allergy Severe tongue Verified 03/01/22 11:02 swells Sulfa (Sulfonamide Allergy Severe fever and Verified 03/01/22 11:02 Antibiotics) rash [SULFA (SULFONAMIDE ANTIBIOTICS)] NSAIDS (Non-Steroidal Allergy Unknown Verified 03/01/22 11:02 Anti-Inflamma [NSAIDS (NON-STEROIDAL ANTI-INFLAMMA] cephalexin Allergy rash Verified 03/01/22 11:02 codeine [CODEINE] AdvReac Mild headache Verified 03/01/22 11:02 duloxetine [From CYMBALTA] AdvReac Mild vomiting Verified 03/01/22 11:02 morphine [MORPHINE] AdvReac Mild vomiting Verified 03/01/22 11:02 nitrofurantoin AdvReac Mild vomiting Verified 03/01/22 11:02 [From MACROBID] carisoprodol AdvReac Verified 03/01/22 11:02 piroxicam [From Feldene] AdvReac Verified 03/01/22 11:02 tolterodine AdvReac Verified 03/01/22 11:02 Review of Systems Review of Systems Narrative: All 12 point systems reviewed with the patient and are negative except otherwise documented. Exam Vital Signs (past 8 hours): - 03/09/22 08:44 03/09/22 08:44 03/09/22 08:44 Temperature 97.1 F L Pulse Rate [Orthostatic Lying] 49 L Pulse Rate [Orthostatic Sitting] 107 H Pulse Rate [Orthostatic Standing] 45 L Respiratory Rate 18 Blood Pressure [Orthostatic Lying] 112/56 L Blood Pressure [Orthostatic Sitting] 113/68 Blood Pressure [Orthostatic Standing] 124/98 H Pulse Oximetry 95 95 Oxygen Delivery Method Room Air Oxygen Flow Rate 0 0 Oxygen Delivery Method Room Air Oxygen Flow Rate 0 Narrative Exam Narrative: General:? Frail-appearing but in no acute distress, well-nourished well- developed bashir elderly female. HEENT:? Moist mucous membranes, normal sclera with reactive pupils, airway is patent. Neck:? Minimal JVD, supple Respiratory:? Lungs with crackles in bilateral lower lung castro.? No wheezing no consolidated findings,.? Full and symmetrical air movement Cardiac:? Irregular, intermittent episodes of tachycardia, no murmurs Abdomen:? Soft, nontender, good bowel tones in all 4 quadrants, no CVA tenderness Skin:? Warm and dry, no rashes Neurologic:? Globally weak but Grossly neurologically intact with no obvious asymmetries or abnormalities Extremities:? warm dry, radial & pedal pulses intact, moves all extremites, chronic venous stasis changes, 2+ lower extremity edema on the right (described as chronic and unchanged, 1+ on the left.? Right is chronically larger than the left. Psych:? Cooperative, appropriate insight and affect, poor historian. Objective Labs Result Diagrams: 03/09/22 06:46 03/09/22 06:46 Labs: Laboratory Results - last 24 hr 03/08/22 03/08/22 03/08/22 17:53 17:53 17:53 WBC 12.9 H RBC 4.61 Hgb 14.6 Hct 44.2 MCV 95.9 MCH 31.6 MCHC 33.0 RDW 14.6 Plt Count 157 Neut % (Auto) 42.7 L Lymph % (Auto) 43.7 H [place] % (Auto) 12.0 Eos % (Auto) 0.7 L Baso % (Auto) 0.9 Neut # (Auto) 5500 Lymph # (Auto) 5600 H [place] # (Auto) 1500 H Eos # (Auto) 100 Baso # (Auto) 100 PT 21.5 H INR 1.9 H APTT 30 Sodium 139 Potassium 2.9 L Chloride 96 L Carbon Dioxide 30 BUN 56 H Creatinine 2.24 H Estimated GFR 22 L BUN/Creatinine Ratio 25.0 H Glucose 89 Calcium 9.6 Magnesium 2.0 Total Bilirubin 0.7 AST 40 H ALT 28 Alkaline Phosphatase 103 Total Creatine Kinase 46 CK-MB (CK-2) TNP CK-MB (CK-2) Rel Index TNP Troponin I 0.033 NT-Pro-B Natriuret Pep Total Protein 7.0 Albumin 4.2 Globulin 2.8 Albumin/Globulin Ratio 1.5 Triglycerides Cholesterol LDL Cholesterol, Calc HDL Cholesterol Lipase 140 D Procalcitonin TSH Chlamy pneumoniae PCR Adenovirus (PCR) B. pertussis DNA (PCR) B.parapertussis DNA PCR Coronavirus OC43 (PCR) Coronavirus HKU1 (PCR) Coronavirus 229E (PCR) SARS-CoV-2 (PCR) Coronavirus NL63 (PCR) Human Metapneumovir PCR Influenza Type A (PCR) Influenza Type B (PCR) M. pneumoniae (PCR) Parainfluenza 1 (PCR) Parainfluenza 2 (PCR) Parainfluenza 3 (PCR) Parainfluenza 4 (PCR) RSV (PCR) Entero/Rhino (PCR) 03/08/22 03/08/22 03/08/22 17:53 17:53 17:53 WBC RBC Hgb Hct MCV MCH MCHC RDW Plt Count Neut % (Auto) Lymph % (Auto) [place] % (Auto) Eos % (Auto) Baso % (Auto) Neut # (Auto) Lymph # (Auto) [place] # (Auto) Eos # (Auto) Baso # (Auto) PT INR APTT Sodium Potassium Chloride Carbon Dioxide BUN Creatinine Estimated GFR BUN/Creatinine Ratio Glucose Calcium Magnesium Total Bilirubin AST ALT Alkaline Phosphatase Total Creatine Kinase CK-MB (CK-2) CK-MB (CK-2) Rel Index Troponin I NT-Pro-B Natriuret Pep 2220 H Total Protein Albumin Globulin Albumin/Globulin Ratio Triglycerides Cholesterol LDL Cholesterol, Calc HDL Cholesterol Lipase Procalcitonin 0.13 TSH 2.93 Chlamy pneumoniae PCR Adenovirus (PCR) B. pertussis DNA (PCR) B.parapertussis DNA PCR Coronavirus OC43 (PCR) Coronavirus HKU1 (PCR) Coronavirus 229E (PCR) SARS-CoV-2 (PCR) Coronavirus NL63 (PCR) Human Metapneumovir PCR Influenza Type A (PCR) Influenza Type B (PCR) M. pneumoniae (PCR) Parainfluenza 1 (PCR) Parainfluenza 2 (PCR) Parainfluenza 3 (PCR) Parainfluenza 4 (PCR) RSV (PCR) Entero/Rhino (PCR) 03/08/22 03/09/22 03/09/22 22:35 00:00 06:46 WBC 9.7 RBC 4.35 Hgb 13.8 Hct 41.3 MCV 95.1 MCH 31.8 MCHC 33.5 RDW 14.4 Plt Count 138 L Neut % (Auto) 45.0 L Lymph % (Auto) 41.9 H [place] % (Auto) 11.7 Eos % (Auto) 1.1 L Baso % (Auto) 0.3 Neut # (Auto) 4300 Lymph # (Auto) 4100 [place] # (Auto) 1100 H Eos # (Auto) 100 Baso # (Auto) 0 PT INR APTT Sodium Potassium Chloride Carbon Dioxide BUN Creatinine Estimated GFR BUN/Creatinine Ratio Glucose Calcium Magnesium Total Bilirubin AST ALT Alkaline Phosphatase Total Creatine Kinase CK-MB (CK-2) CK-MB (CK-2) Rel Index Troponin I 0.029 NT-Pro-B Natriuret Pep Total Protein Albumin Globulin Albumin/Globulin Ratio Triglycerides Cholesterol LDL Cholesterol, Calc HDL Cholesterol Lipase Procalcitonin TSH Chlamy pneumoniae PCR Not detected Adenovirus (PCR) Not detected B. pertussis DNA (PCR) Not detected B.parapertussis DNA PCR Not detected Coronavirus OC43 (PCR) Not detected Coronavirus HKU1 (PCR) Not detected Coronavirus 229E (PCR) Not detected SARS-CoV-2 (PCR) Not detected Coronavirus NL63 (PCR) Not detected Human Metapneumovir PCR Not detected Influenza Type A (PCR) Not detected Influenza Type B (PCR) Not detected M. pneumoniae (PCR) Not detected Parainfluenza 1 (PCR) Not detected Parainfluenza 2 (PCR) Not detected Parainfluenza 3 (PCR) Not detected Parainfluenza 4 (PCR) Not detected RSV (PCR) Not detected Entero/Rhino (PCR) Not detected 03/09/22 03/09/22 03/09/22 06:46 06:46 06:46 WBC RBC Hgb Hct MCV MCH MCHC RDW Plt Count Neut % (Auto) Lymph % (Auto) [place] % (Auto) Eos % (Auto) Baso % (Auto) Neut # (Auto) Lymph # (Auto) [place] # (Auto) Eos # (Auto) Baso # (Auto) PT INR APTT Sodium 139 Potassium 4.1 D Chloride 102 Carbon Dioxide 30 BUN 47 H Creatinine 2.07 H Estimated GFR 24 L BUN/Creatinine Ratio 22.7 H Glucose 84 Calcium 8.7 Magnesium 1.9 Total Bilirubin 0.6 AST 27 ALT 23 Alkaline Phosphatase 82 Total Creatine Kinase CK-MB (CK-2) CK-MB (CK-2) Rel Index Troponin I 0.029 NT-Pro-B Natriuret Pep Total Protein 5.3 L Albumin 3.5 Globulin 1.8 Albumin/Globulin Ratio 1.9 Triglycerides 165 H Cholesterol 145 LDL Cholesterol, Calc 65 HDL Cholesterol 47 Lipase Procalcitonin TSH Chlamy pneumoniae PCR Adenovirus (PCR) B. pertussis DNA (PCR) B.parapertussis DNA PCR Coronavirus OC43 (PCR) Coronavirus HKU1 (PCR) Coronavirus 229E (PCR) SARS-CoV-2 (PCR) Coronavirus NL63 (PCR) Human Metapneumovir PCR Influenza Type A (PCR) Influenza Type B (PCR) M. pneumoniae (PCR) Parainfluenza 1 (PCR) Parainfluenza 2 (PCR) Parainfluenza 3 (PCR) Parainfluenza 4 (PCR) RSV (PCR) Entero/Rhino (PCR) 03/09/22 06:46 WBC RBC Hgb Hct MCV MCH MCHC RDW Plt Count Neut % (Auto) Lymph % (Auto) [place] % (Auto) Eos % (Auto) Baso % (Auto) Neut # (Auto) Lymph # (Auto) [place] # (Auto) Eos # (Auto) Baso # (Auto) PT 21.2 H INR 1.8 H APTT Sodium Potassium Chloride Carbon Dioxide BUN Creatinine Estimated GFR BUN/Creatinine Ratio Glucose Calcium Magnesium Total Bilirubin AST ALT Alkaline Phosphatase Total Creatine Kinase CK-MB (CK-2) CK-MB (CK-2) Rel Index Troponin I NT-Pro-B Natriuret Pep Total Protein Albumin Globulin Albumin/Globulin Ratio Triglycerides Cholesterol LDL Cholesterol, Calc HDL Cholesterol Lipase Procalcitonin TSH Chlamy pneumoniae PCR Adenovirus (PCR) B. pertussis DNA (PCR) B.parapertussis DNA PCR Coronavirus OC43 (PCR) Coronavirus HKU1 (PCR) Coronavirus 229E (PCR) SARS-CoV-2 (PCR) Coronavirus NL63 (PCR) Human Metapneumovir PCR Influenza Type A (PCR) Influenza Type B (PCR) M. pneumoniae (PCR) Parainfluenza 1 (PCR) Parainfluenza 2 (PCR) Parainfluenza 3 (PCR) Parainfluenza 4 (PCR) RSV (PCR) Entero/Rhino (PCR) Assessment & Plan Assessment & Plan narrative: Christine Burger (Lorraine) is a bashir 76 year-old patient with a history of hypertension, hyperlipidemia, chronic hip pain, autoimmune disease, chronic kidney disease, hypothyroidism, reflux, prior DVT currently anticoagulated on Coumadin, bilateral lower extremity edema, Left venous insufficiency, and pulmonary fibrosis presents with increasing weakness, chest pain and pressure, dizziness and increasingly erratic heartbeat. Seen in ED 03/01-DX frequent PACs. PCP ordered-echocardiogram and a Zio patch (not completed, and referral to [facility] pending.?Presented to the ED due to increasing weakness dizziness near syncope, worse when lying down, carvedilol was recently discontinued and changed to HCTZ. In the ED B/P, HR RR, were all very labile, Hypotensive/hypertensive urgency 80/62-190/83 B/P, tachycardia/bradycardia 59- 144 HR, tachpnic 18-38 RR. Patient admitted for sepsis without Shock per SOFA at the time of admit, with leukocytosis of unknown etiology,acute new onset heart failure with Ventricular Tachycardia, bigeminy, labile B/P, HR, RR and frequent PACs. Determine source of sepsis, gentle diuresis, echo, and symptom evaluation and treatment. At the time of admit patient was resting comfortably in bed sleeping, on no 02, and in no distress. 96.5, 158/78, 95, 24, but 99% on rm air-pt did not have an observable increased labored work of breathing. K+2.9, Cl 96, Bun 56, Investment Director 2.24, Glu 89, GFR 22. Lipase WNL, Mag stable 2.0, Trop: 0.033, CCL:24. SOFA:3 meeting sepsis criteria. BNP 2560, CXR: no acute cardiopulmonary process, noted small pulmonary nodule RT mid lung-Unchanged since 2019. I personally reviewed EKG: rate 97, accelerated junction rhythm with possible anteroseptal infarction. Patient admitted for sepsis without Shock per SOFA at the time of admit, with leukocytosis of unknown etiology,acute new onset heart failure with Ventricular Tachycardia, bigeminy, labile B/P, HR, RR and frequent PACs. 1. Sepsis without Shock, Cardiogenic, with leukocytosis of unknown etiology, present on admission -very labile, Hypotensive/hypertensive urgency 80/62-190/83 B/P, Ventricular tachycardia/bradycardia 59-144 HR, tachpnic 18-38 RR -per SOFA:3 at the time of admit- due to new onset heart failure-will wait for further labs for evaluation, and limit fluids at this time -WBC 12.9, Lymph 5,600, mono 1500 -CXR:no acute cardiopulmonary process, noted small pulmonary nodule RT mid lung-Unchanged since 2019. -EKG: rate 97, accelerated junction rhythm with possible anteroseptal infarction. - Mag stable 2.0, Trop: 0.033- trend x3, telemonitor -Ordered Proc, Bld cult, Urine cult, Resp Panel, A1C, -Echo ordered -Recommend consult with [facility] cardiology- as pt may be unsafe to return home -Orthostats [id number] -Possible sick sinus syndrome -Consult PT/OT to asses for safety 2. Acute new onset heart failure with Ventricular Tachycardia, bigeminy, labile v/s, acute present on admission -BNP Ordered -Echo ordered -Severe Hypokalemia K+2.9-40MeQ given orally & IV in ED-monitor electrolytes -K+ 40MeQs BID -Lasix Drip for gentle diuersis, with out exacerbating CKD - continue eating while on drip 3. HTN essential, acute On chronic, present on admission -Holdin HCTZ & oral lasix high suspicion of over diuresis-leading to nboth hypotension & Hypo K+ 4. Hypothyroidism, acquired, present of admission -continue levothyroxine 5. Autoimmune disease, chronic, present on admission -Continue prednisone 6. Hyperlidemia, Chronic present on admission -continue statin 7. Over weight, mild, acute on chronic, present of admission -dietary consult Code Full Surrogate: Bill Love spouse DVT/VTE: Love & SCD's Disposition:? Patient admitted to acute care, expected length of stay greater than 2 midnights. I have utilized all available immediate resources to obtain, update, or review the patient's current medications.. I confirmed that the patient's advanced care plan is present, Code status is documented and/or surrogate decision maker is listed in the patient's medical record. I have personally reviewed patient's chart notes from PCP, specialists, diagnostic imaging, and laboratory, Time Spent With Patient Critical Care time: I spent a total of [] minutes of critical care time on this patient's care t herb; this time is exclusive of procedural time. Quality VTE Deep Vein Thrombosis/Pulmonary Embolism Present on Admission: No
--- NOTE | 2022-03-09 15:42 | P.PN_ITS ---
Subjective Subjective Date Patient Seen: 03/09/22 Interval history: 76-year-old female with history microscopic polyangiitis, chronic kidney disease, pulmonary fibrosis, DVT with chronic leg edema, hypothyroidism, GERD admitted with complaints of weakness and dizziness over the past several weeks. Patient states she was a little dizzy when out of bed this morning. Her potassium deficiency has been corrected. She had been recently taken off carvedilol and started on HCTZ by her furnace operator oil or gas Dr. Carmen. Exam Vital Signs (past 8 hours): - 03/09/22 08:44 03/09/22 08:44 03/09/22 08:44 Temperature 97.1 F L Pulse Rate Pulse Rate [Orthostatic Lying] 49 L Pulse Rate [Orthostatic Sitting] 107 H Pulse Rate [Orthostatic Standing] 45 L Respiratory Rate 18 Blood Pressure Blood Pressure [Orthostatic Lying] 112/56 L Blood Pressure [Orthostatic Sitting] 113/68 Blood Pressure [Orthostatic Standing] 124/98 H Pulse Oximetry 95 95 Oxygen Delivery Method Room Air Oxygen Flow Rate 0 0 03/09/22 13:00 03/09/22 13:00 Temperature 97.7 F Pulse Rate 53 L Pulse Rate [Orthostatic Lying] Pulse Rate [Orthostatic Sitting] Pulse Rate [Orthostatic Standing] Respiratory Rate 18 Blood Pressure 138/57 L Blood Pressure [Orthostatic Lying] Blood Pressure [Orthostatic Sitting] Blood Pressure [Orthostatic Standing] Pulse Oximetry 98 98 Oxygen Delivery Method Room Air Oxygen Flow Rate 0 0 Oxygen Delivery Method Room Air Oxygen Flow Rate 0 Narrative Exam Narrative: General: Alert and pleasant female in no acute distress Lungs: Close to at anyone bilateral lower lung fine crackles, chronic Heart: Regular rhythm with PACs Extremities: Chronic edema right greater than left lower extremities Neurological: Well oriented, affect normal Objective Labs Result Diagrams: 03/09/22 06:46 03/09/22 06:46 Labs: Laboratory Results - last 24 hr 03/08/22 03/08/22 03/08/22 17:53 17:53 17:53 WBC 12.9 H RBC 4.61 Hgb 14.6 Hct 44.2 MCV 95.9 MCH 31.6 MCHC 33.0 RDW 14.6 Plt Count 157 Neut % (Auto) 42.7 L Lymph % (Auto) 43.7 H [place] % (Auto) 12.0 Eos % (Auto) 0.7 L Baso % (Auto) 0.9 Neut # (Auto) 5500 Lymph # (Auto) 5600 H [place] # (Auto) 1500 H Eos # (Auto) 100 Baso # (Auto) 100 PT 21.5 H INR 1.9 H APTT 30 Sodium 139 Potassium 2.9 L Chloride 96 L Carbon Dioxide 30 BUN 56 H Creatinine 2.24 H Estimated GFR 22 L BUN/Creatinine Ratio 25.0 H Glucose 89 Calcium 9.6 Magnesium 2.0 Total Bilirubin 0.7 AST 40 H ALT 28 Alkaline Phosphatase 103 Total Creatine Kinase 46 CK-MB (CK-2) TNP CK-MB (CK-2) Rel Index TNP Troponin I 0.033 NT-Pro-B Natriuret Pep Total Protein 7.0 Albumin 4.2 Globulin 2.8 Albumin/Globulin Ratio 1.5 Triglycerides Cholesterol LDL Cholesterol, Calc HDL Cholesterol Lipase 140 D Procalcitonin TSH Chlamy pneumoniae PCR Adenovirus (PCR) B. pertussis DNA (PCR) B.parapertussis DNA PCR Coronavirus OC43 (PCR) Coronavirus HKU1 (PCR) Coronavirus 229E (PCR) SARS-CoV-2 (PCR) Coronavirus NL63 (PCR) Human Metapneumovir PCR Influenza Type A (PCR) Influenza Type B (PCR) M. pneumoniae (PCR) Parainfluenza 1 (PCR) Parainfluenza 2 (PCR) Parainfluenza 3 (PCR) Parainfluenza 4 (PCR) RSV (PCR) Entero/Rhino (PCR) 03/08/22 03/08/22 03/08/22 17:53 17:53 17:53 WBC RBC Hgb Hct MCV MCH MCHC RDW Plt Count Neut % (Auto) Lymph % (Auto) [place] % (Auto) Eos % (Auto) Baso % (Auto) Neut # (Auto) Lymph # (Auto) [place] # (Auto) Eos # (Auto) Baso # (Auto) PT INR APTT Sodium Potassium Chloride Carbon Dioxide BUN Creatinine Estimated GFR BUN/Creatinine Ratio Glucose Calcium Magnesium Total Bilirubin AST ALT Alkaline Phosphatase Total Creatine Kinase CK-MB (CK-2) CK-MB (CK-2) Rel Index Troponin I NT-Pro-B Natriuret Pep 2220 H Total Protein Albumin Globulin Albumin/Globulin Ratio Triglycerides Cholesterol LDL Cholesterol, Calc HDL Cholesterol Lipase Procalcitonin 0.13 TSH 2.93 Chlamy pneumoniae PCR Adenovirus (PCR) B. pertussis DNA (PCR) B.parapertussis DNA PCR Coronavirus OC43 (PCR) Coronavirus HKU1 (PCR) Coronavirus 229E (PCR) SARS-CoV-2 (PCR) Coronavirus NL63 (PCR) Human Metapneumovir PCR Influenza Type A (PCR) Influenza Type B (PCR) M. pneumoniae (PCR) Parainfluenza 1 (PCR) Parainfluenza 2 (PCR) Parainfluenza 3 (PCR) Parainfluenza 4 (PCR) RSV (PCR) Entero/Rhino (PCR) 03/08/22 03/09/22 03/09/22 22:35 00:00 06:46 WBC 9.7 RBC 4.35 Hgb 13.8 Hct 41.3 MCV 95.1 MCH 31.8 MCHC 33.5 RDW 14.4 Plt Count 138 L Neut % (Auto) 45.0 L Lymph % (Auto) 41.9 H [place] % (Auto) 11.7 Eos % (Auto) 1.1 L Baso % (Auto) 0.3 Neut # (Auto) 4300 Lymph # (Auto) 4100 [place] # (Auto) 1100 H Eos # (Auto) 100 Baso # (Auto) 0 PT INR APTT Sodium Potassium Chloride Carbon Dioxide BUN Creatinine Estimated GFR BUN/Creatinine Ratio Glucose Calcium Magnesium Total Bilirubin AST ALT Alkaline Phosphatase Total Creatine Kinase CK-MB (CK-2) CK-MB (CK-2) Rel Index Troponin I 0.029 NT-Pro-B Natriuret Pep Total Protein Albumin Globulin Albumin/Globulin Ratio Triglycerides Cholesterol LDL Cholesterol, Calc HDL Cholesterol Lipase Procalcitonin TSH Chlamy pneumoniae PCR Not detected Adenovirus (PCR) Not detected B. pertussis DNA (PCR) Not detected B.parapertussis DNA PCR Not detected Coronavirus OC43 (PCR) Not detected Coronavirus HKU1 (PCR) Not detected Coronavirus 229E (PCR) Not detected SARS-CoV-2 (PCR) Not detected Coronavirus NL63 (PCR) Not detected Human Metapneumovir PCR Not detected Influenza Type A (PCR) Not detected Influenza Type B (PCR) Not detected M. pneumoniae (PCR) Not detected Parainfluenza 1 (PCR) Not detected Parainfluenza 2 (PCR) Not detected Parainfluenza 3 (PCR) Not detected Parainfluenza 4 (PCR) Not detected RSV (PCR) Not detected Entero/Rhino (PCR) Not detected 03/09/22 03/09/22 03/09/22 06:46 06:46 06:46 WBC RBC Hgb Hct MCV MCH MCHC RDW Plt Count Neut % (Auto) Lymph % (Auto) [place] % (Auto) Eos % (Auto) Baso % (Auto) Neut # (Auto) Lymph # (Auto) [place] # (Auto) Eos # (Auto) Baso # (Auto) PT INR APTT Sodium 139 Potassium 4.1 D Chloride 102 Carbon Dioxide 30 BUN 47 H Creatinine 2.07 H Estimated GFR 24 L BUN/Creatinine Ratio 22.7 H Glucose 84 Calcium 8.7 Magnesium 1.9 Total Bilirubin 0.6 AST 27 ALT 23 Alkaline Phosphatase 82 Total Creatine Kinase CK-MB (CK-2) CK-MB (CK-2) Rel Index Troponin I 0.029 NT-Pro-B Natriuret Pep Total Protein 5.3 L Albumin 3.5 Globulin 1.8 Albumin/Globulin Ratio 1.9 Triglycerides 165 H Cholesterol 145 LDL Cholesterol, Calc 65 HDL Cholesterol 47 Lipase Procalcitonin TSH Chlamy pneumoniae PCR Adenovirus (PCR) B. pertussis DNA (PCR) B.parapertussis DNA PCR Coronavirus OC43 (PCR) Coronavirus HKU1 (PCR) Coronavirus 229E (PCR) SARS-CoV-2 (PCR) Coronavirus NL63 (PCR) Human Metapneumovir PCR Influenza Type A (PCR) Influenza Type B (PCR) M. pneumoniae (PCR) Parainfluenza 1 (PCR) Parainfluenza 2 (PCR) Parainfluenza 3 (PCR) Parainfluenza 4 (PCR) RSV (PCR) Entero/Rhino (PCR) 03/09/22 06:46 WBC RBC Hgb Hct MCV MCH MCHC RDW Plt Count Neut % (Auto) Lymph % (Auto) [place] % (Auto) Eos % (Auto) Baso % (Auto) Neut # (Auto) Lymph # (Auto) [place] # (Auto) Eos # (Auto) Baso # (Auto) PT 21.2 H INR 1.8 H APTT Sodium Potassium Chloride Carbon Dioxide BUN Creatinine Estimated GFR BUN/Creatinine Ratio Glucose Calcium Magnesium Total Bilirubin AST ALT Alkaline Phosphatase Total Creatine Kinase CK-MB (CK-2) CK-MB (CK-2) Rel Index Troponin I NT-Pro-B Natriuret Pep Total Protein Albumin Globulin Albumin/Globulin Ratio Triglycerides Cholesterol LDL Cholesterol, Calc HDL Cholesterol Lipase Procalcitonin TSH Chlamy pneumoniae PCR Adenovirus (PCR) B. pertussis DNA (PCR) B.parapertussis DNA PCR Coronavirus OC43 (PCR) Coronavirus HKU1 (PCR) Coronavirus 229E (PCR) SARS-CoV-2 (PCR) Coronavirus NL63 (PCR) Human Metapneumovir PCR Influenza Type A (PCR) Influenza Type B (PCR) M. pneumoniae (PCR) Parainfluenza 1 (PCR) Parainfluenza 2 (PCR) Parainfluenza 3 (PCR) Parainfluenza 4 (PCR) RSV (PCR) Entero/Rhino (PCR) [facility], [facility] Medical History Autoimmune disease Bilateral lower extremity edema Chronic anticoagulation Chronic kidney disease Hyperlipidemia Hypertension Left leg DVT Renal insufficiency Social History household members: spouse Smoking Status: Never smoker alcohol intake: current Assessment & Plan Assessment & Plan narrative: 1. Acute hypokalemia -this was likely cause of her presenting symptoms along with volume depletion, patient was recently started on HCTZ in addition to her daily furosemide -stop HCTZ -received IV and oral potassium replacement with normal serum K on this morning's labs -repeat BMP in a.m. 2. Acute volume depletion, corrected -patient had documented orthostatic drop in blood pressure in ED 3. Urinary tract infection, persistent -patient was recently on 3 day antibiotic course for pansensitive E coli -current urinalysis with many bacteria and urine culture pending, and she did have couple episodes of vomiting at home -UTI possibly contributing to weakness -started Cipro 250 mg at bedtime only x5 days, this is renally dosed 4. Chronic kidney disease stage 4, stable 5. CHF ruled out with normal echo and clinically does not appear in heart failure 6. Premature atrial contractions -patient does not appear symptomatic from these, PACs likely exacerbated by hypokalemia 7. Microscopic polyangiitis -continue on prednisone 5 mg q.d. 8. History of DVT -INR slightly low on admit, takes warfarin 1 mg daily except 1.5 mg on Tuesdays -continue warfarin 1 mg a day, recheck in 1 week as patient is on antibiotic 9. Weakness -consult PT and OT Patient with improving slight stable hospital course and likely can discharge tomorrow. Time Spent With Patient Critical Care time: I spent a total of [] minutes of critical care time on this patient's care today; this time is exclusive of procedural time. Quality VTE Deep Vein Thrombosis/Pulmonary Embolism Present on Admission: No
[2022-03-09] MEDS: WARFARIN 1 MG TABLET PO (16:59)
[2022-03-09] MEDS: ATORVASTATIN 20 MG TABLET 10 MG PO (20:56)
[2022-03-09] MEDS: CIPROFLOXACIN 250 MG TABLET PO (20:56)
[2022-03-09] MEDS: SENNOSIDES 8.6 MG TABLET 17.2 MG PO (20:57)
[2022-03-10] VITALS (9 sets, daily range): BP systolic 100–156; BP diastolic 56–77; PULSE 47–79; RESP 15–21; TEMP 36.3–36.9; O2SAT 95–99
[2022-03-10] MEDS: LEVOTHYROXINE 100 MCG TABLET PO (06:35)
[2022-03-10] MEDS: PANTOPRAZOLE DR 20 MG TABLET PO (06:36)
[2022-03-10 07:26] LABS: Add Manual Diff / Slide Review NO; Basophils Absolute Auto 0 /uL (0-100); Basophils Percent Auto 0.5 % (0-2); Eosinophils Absolute Auto 100 /uL (0-450); Eosinophils Percent Auto 1.3 % (2-4); Hematocrit 41.1 % (36-46); Hemoglobin 13.7 g/dL (12.0-16.0); Lymphocytes Absolute Auto 2900 /uL (1100-4500); Lymphocytes Percent Auto 30.2 % (25-40); Mean Corpuscular HGB Conc 33.3 % (30-36); Mean Corpuscular Hemoglobin 31.7 PG (26-34); Mean Corpuscular Volume 95.3 fL (80-100); Monocytes Absolute Auto 1000 /uL (0-900); Monocytes Percent Auto 10.1 % (3-14); Neutrophils Absolute Auto 5500 /uL (1500-7000); Neutrophils Percent Auto 57.9 % (50-75); Platelet Count 130 X10^3/uL (150-400); Red Blood Cell Count 4.31 X10^6/uL (4.0-5.2); Red Cell Distribution Width 14.3 % (11.6-14.8); White Blood Cell Count 9.6 X10^3/uL (4.5-11.0)
[2022-03-10 07:41] LABS: Alanine Aminotransferase 20 IU/L (<35); Albumin 3.4 g/dL (3.5-5.0); Albumin Globulin Ratio 1.5 (1.0-2.8); Alkaline Phosphatase 81 U/L (38-126); Aspartate Aminotransferase 23 IU/L (14-36); BUN Creatinine Ratio 22.9 (6-22); Bilirubin Total 0.5 mg/dL (0.2-1.3); Blood Urea Nitrogen 51 mg/dL (7-17); Calcium 8.8 mg/dL (8.4-10.2); Carbon Dioxide 29 mmol/L (22-32); Chloride 101 mmol/L (98-107); Estimated Glomerular Filt Rate 22 mL/min (>60); Globulin 2.2 g/dL (1.7-4.1); Glucose 108 mg/dL (80-110); HEMOLYSIS < 15 (0-50); Sodium 140 mmol/L (137-145); Total Protein 5.6 g/dL (6.3-8.2)
[2022-03-10] MEDS: OXYCODONE/ACETAMINOPHEN 5/325 TABLET 1 TAB PO ×3 (08:48→19:07)
[2022-03-10 09:28] LABS: INR 1.6 (0.9-1.3)
--- NOTE | 2022-03-10 09:40 | PM.PN.1 ---
Subjective Subjective Date Patient Seen: 03/10/22 Interval history: 76-year-old female with history microscopic polyangiitis, chronic kidney disease, pulmonary fibrosis, DVT with chronic leg edema, hypothyroidism, GERD admitted with complaints of weakness and dizziness over the past several weeks. Her potassium again lowered today, she was repleted Complains of pain in her R hip chronically, to work with PT/OT today. Exam Vital Signs (past 8 hours): - 03/10/22 05:00 03/10/22 05:21 03/10/22 09:00 Temperature 97.8 F 97.4 F L Pulse Rate 50 L 47 L Respiratory Rate 15 18 Blood Pressure 140/65 128/63 Pulse Oximetry 97 97 96 Oxygen Delivery Method Room Air Oxygen Flow Rate 0 0 Oxygen Delivery Method Room Air Oxygen Flow Rate 0 Narrative Exam Narrative: General:? Patient is well developed and well nourished, in no distress at this time. HEENT:? Normocephalic, atraumatic, extraocular muscles intact, oral pharynx is clear and mucous membranes are moist. Neck: supple and symmetric, trachea is midline, no cervical adenopathy. Negative for JVD Chest:? Normal AP diameter and contour without kyphoscoliosis, no tachypnea, equal chest rise bilaterally. Lungs:? CTA b/l no wheezing rhonchi or rales. Cardio:?RRR no m/r/g. Abdomen: S NT ND. Musculoskeletal:? Muscle strength and tone are equal, no deformity. Extremities: b/l LE non pitting edema, chronic, R > L. No joint effusion. Skin:? Pale,? Warm to touch,dry and intact without rashes, ulcerations or petechiae.? Neuro:? Alert and orientated x3,? sensation to touch intact in all extremities, no gross deficits noted of cranial nerves. Psych:? Patient has a well-kept appearance, appropriate affect, mental status attitude thought context and judgment are appropriate for age. Objective Labs Result Diagrams: 03/10/22 07:08 03/10/22 07:08 Labs: Laboratory Results - last 24 hr 03/10/22 03/10/22 03/10/22 05:05 07:08 07:08 WBC 9.6 RBC 4.31 Hgb 13.7 Hct 41.1 MCV 95.3 MCH 31.7 MCHC 33.3 RDW 14.3 Plt Count 130 L Neut % (Auto) 57.9 Lymph % (Auto) 30.2 [place] % (Auto) 10.1 Eos % (Auto) 1.3 L Baso % (Auto) 0.5 Neut # (Auto) 5500 Lymph # (Auto) 2900 [place] # (Auto) 1000 H Eos # (Auto) 100 Baso # (Auto) 0 PT INR Sodium 140 Potassium 3.0 L Chloride 101 Carbon Dioxide 29 BUN 51 H Creatinine 2.23 H Estimated GFR 22 L BUN/Creatinine Ratio 22.9 H Glucose 108 Calcium 8.8 Total Bilirubin 0.5 AST 23 ALT 20 Alkaline Phosphatase 81 Total Protein 5.6 L Albumin 3.4 L Globulin 2.2 Albumin/Globulin Ratio 1.5 Nasal Screen MRSA (PCR) Negative for mrsa 03/10/22 07:08 WBC RBC Hgb Hct MCV MCH MCHC RDW Plt Count Neut % (Auto) Lymph % (Auto) [place] % (Auto) Eos % (Auto) Baso % (Auto) Neut # (Auto) Lymph # (Auto) [place] # (Auto) Eos # (Auto) Baso # (Auto) PT 18.0 H INR 1.6 H Sodium Potassium Chloride Carbon Dioxide BUN Creatinine Estimated GFR BUN/Creatinine Ratio Glucose Calcium Total Bilirubin AST ALT Alkaline Phosphatase Total Protein Albumin Globulin Albumin/Globulin Ratio Nasal Screen MRSA (PCR) [facility] Medical History Autoimmune disease Bilateral lower extremity edema Chronic anticoagulation Chronic kidney disease Hyperlipidemia Hypertension Left leg DVT Renal insufficiency Social History household members: spouse Smoking Status: Never smoker alcohol intake: current Assessment & Plan Assessment & Plan narrative: 1. Acute hypokalemia -this was likely cause of her presenting symptoms along with volume depletion, patient was recently started on HCTZ in addition to her daily furosemide -stop HCTZ and furosemide. -K 3.0 again today, ordered for oral repletion. -continue to monitor. 2. Acute volume depletion with orthostatic hypotension, corrected -patient had documented orthostatic drop in blood pressure in ED, but improved now. -PT/OT today 3. Urinary tract infection, persistent -patient was recently on 3 day antibiotic course for pansensitive E coli -current urinalysis with many bacteria and urine culture pending, and she did have couple episodes of vomiting at home -UTI possibly contributing to weakness -started Cipro 250 mg at bedtime only x5 days, this is renally dosed 4. Chronic kidney disease stage 4, stable 5. CHF ruled out with normal echo and clinically does not appear in heart failure 6. Premature atrial contractions -patient does not appear symptomatic from these, PACs likely exacerbated by hypokalemia 7. Microscopic polyangiitis -continue on prednisone 5 mg q.d. 8. History of DVT -INR slightly low on admit, takes warfarin 1 mg daily except 1.5 mg on Tuesdays -continue warfarin 1 mg a day, recheck in 1 week as patient is on antibiotic 9. Weakness -consult PT and OT, likely in setting of hypokalemia but has been working with PT as outpatient for R hip pain. 10. HTN - holding current medications for now as noted above. Resume carvediolol if she becomes hypertensives but BP currently remains controlled. Patient with improving slight stable hospital course and likely can discharge tomorrow. Time Spent With Patient Critical Care time: I spent a total of [] minutes of critical care time on this patient's care today; this time is exclusive of procedural time. Quality VTE Deep Vein Thrombosis/Pulmonary Embolism Present on Admission: No
--- NOTE | 2022-03-10 10:05 | PT.IIE ---
Medical History (Last Reviewed 03/10/22 @ 09:40 by Toby Mullins DO) Autoimmune disease Bilateral lower extremity edema Chronic anticoagulation Chronic kidney disease Hyperlipidemia Hypertension Left leg DVT Renal insufficiency Physical Therapy Inpatient Evaluation/Re-Eval M1 PT/OT-IP Prior Functional Status Start: 03/10/22 13:27 Freq: NEEDED Status: Active Protocol: Document 03/10/22 10:05 AB (Rec: 03/10/22 13:44 AB [email or web address]) Medical Review Prior Functional Status Medical History Reviewed Yes Communication able to make needs known Mobility and Gait pt stated that she is independent with all mobilities and ambulation using a 4WW but occasionally without AD but furniture cruises for short distance ambulation in her house Social History Household Members spouse Living Arrangements House Number of Floors (Floors) One Floor Number of Stairs To Enter/Railing? 1 step to enter Home Environment Standard Height Toilet,Tub/ Shower Home Equipment Four Wheel Walker,Tub Transfer Bench,Hand Held Shower,Grab Bars In Shower M2 PT-IP Current Condition Start: 03/10/22 13:27 Freq: NEEDED Status: Active Protocol: Document 03/10/22 10:05 AB (Rec: 03/10/22 13:44 AB [id number]) Physical Therapy Current Condition Current Condition Evaluation Date 03/10/22 Treatment Diagnosis CHF; UTI; hypokalemia; difficulty in walking Onset Date 03/08/22 M3 PT-IP Subjective Start: 03/10/22 13:27 Freq: NEEDED Status: Active Protocol: Document 03/10/22 10:05 AB (Rec: 03/10/22 13:44 AB [email or web address]) Subjective Physical Therapy Visit Type Type Initial Evaluation Visit Start Time 10:05 Visit Stop Time 10:50 Total Visit Minutes 45 Number of PAPER TUBE GRADER Visits 0 Physical Therapy Visit Comments Patient Comments agreeable to do PT Therapy Pain Assessment Pain When Pain Assessed At Rest Pain Present Pain Present Pain Reported Location Right Hip Intensity 4 Pain Management Techniques Distraction,Modification of Treatment,Re-positioning, Timing of Activity with Medications M4 PT-IP Mobility and Gait Start: 03/10/22 13:27 Freq: NEEDED Status: Active Protocol: Document 03/10/22 10:05 AB (Rec: 03/10/22 13:44 AB [email or web address]) PT-Bed Mobility Assessment Supine to Sit Supine to Sit Standby Assistance,Head of Bed Elevated,Bedrails PT-Transfer Assessment Sit to and From Stand Sit to and from Stand Contact Guard Assistance,1 Person Assistance Equipment Transfer Assistive Device Gait Belt,Front Wheeled Walker Orthotic/Prosthetic Devices or Brace: No Transfers Transfer Destination Chair Transfer Technique Stand Step Pivot Transfer Ability Level of Assist Contact Guard Assistance,1 Person Assistance,Use of Upper Extremities Comments Mobility Comments BP monitored. BP in supine: 125/52. DC: 48 completed supine to sit SBA. able to sit on EOB SBA. no c/o lightheadedness. BP in sittin/48 DC: 51. pt tolerate 3 more minutes of sitting. BP checked: 125/51 DC 50. completed sit to stand CGA. BP in standing 87/36 with c/o lightheadedness and increase R hip pain. pt sat back on EOB. BP checked: 93/ 51 DC 54. pt sat for 2 more minutes and BP checked again: 114/54 DC 51. pt completed sit to stand CGA and step transfer to chair CGA. BP checked sitting on chair after transfer: 132/53 DC: 51. positioned pt on the chair. calll light and table placed within reach. PT-Balance Assessment Sitting Balance and Reactions Static Sitting Balance Ability Good Dynamic Sitting Balance Ability Good Standing Balance and Reactions Static Standing Balance Ability Good Dynamic Standing Balance Ability Fair Device Used FWW M5 PT-IP Objective Assessments Start: 03/10/22 13:27 Freq: NEEDED Status: Active Protocol: Document 03/10/22 10:05 AB (Rec: 03/10/22 13:44 AB [email or web address]) Orientation Orientation/Cognition Level of Alertness Alert Orientation Name,Place,Situation Language Function Ability No Deficits Noted Safety Awareness Understands Safety Issues Memory Description No Deficits Noted Gross Range of Motion Lower Extremity ROM Assessment Within Functional Limits Strength Lower Extremity Strength Assessment Within Functional Limits Coordination Assessment Gross Coordination Gross Coordination WNL Sensation Assessment Sensation Gross Sensation WNL Muscle Tone Muscle Tone WNL Yes M6 PT-IP Treatment Start: 03/10/22 13:27 Freq: NEEDED Status: Active Protocol: Document 03/10/22 10:05 AB (Rec: 03/10/22 13:44 AB [email or web address]) Physical Therapy Treatment Education Education Provided Safety M7 PT-IP Assessment and Plan Start: 03/10/22 13:27 Freq: NEEDED Status: Active Protocol: Document 03/10/22 10:05 AB (Rec: 03/10/22 13:44 AB [email or web address]) PT Summary Assessment and Plan Potential Rehabilitation Potential Fair Status of Condition at Evaluation Evolving Summary Impairments Pain,Strength,Balance,Bed Mobility,Transfers,Gait, Activity Tolerance Assessment Summary pt requiring CGA with mobility but unable to tolerate much activity with pt having orthostatic hypotension of 87/ 36 in standing with c/o lightheadedness. DC also mostly low: 48-54 bpm. pt d/c plan is to go home with spouse to assist. will continue to assess progress. Goals Bed Mobility Goal Independent Transfer Goal Independent,Front Wheeled Walker,Four Wheeled Walker Gait Goal Independent,Front Wheel Walker ,Four Wheel Walker Gait Distance 200 Other Goals up/down 1 step using FWW/4WW SBA Days to Meet Goals 10 Frequency of Treatment Frequency Of Treatment Once a Day Treatment Plan Physical Therapy Treatment Plan Bed Mobility Training,Transfer Training,Gait Training, Therapeutic Exercise,Balance Retraining,Discharge Planning, Hot or Cold Pack,Neuromuscular Re-ed,Coordination Retraining Precautions Other Precautions orthostatic hypotension Recommendations To Nursing Amount of Assist Needed 1 Person Assist Discharge Recommendations PT Discharge Recommendations Home with 24/10 Assist Available,Home Health Equipment Needed for Home Before FWW if not safe with 4WW Discharge Transportation Needs at Discharge Private Vehicle
[2022-03-10] MEDS: LIDOCAINE PATCH 1 EACH ADH..PATCH TOP (10:13)
[2022-03-10] MEDS: predniSONE 5 MG TABLET PO (10:13)
[2022-03-10] MEDS: POTASSIUM CHLORIDE 20 MEQ TAB 40 MEQ PO (11:25)
--- NOTE | 2022-03-10 11:54 | OT.IPNOTE ---
Attempted to see pt x2 for OT eval. Pt states just finished PT and the second attempt pt just finished using the toilet and wanting to rest.
[2022-03-10] MEDS: WARFARIN 1 MG TABLET PO (18:56)
[2022-03-10] MEDS: ATORVASTATIN 20 MG TABLET 10 MG PO (20:09)
[2022-03-10] MEDS: SENNOSIDES 8.6 MG TABLET 17.2 MG PO (20:10)
[2022-03-10] MEDS: CIPROFLOXACIN 250 MG TABLET PO (20:10)
[2022-03-11] VITALS (8 sets, daily range): BP systolic 119–141; BP diastolic 47–69; PULSE 44–98; RESP 16–18; TEMP 35.9–36.7; O2SAT 95–98
[2022-03-11 06:10] LABS: Alanine Aminotransferase 18 IU/L (<35); Albumin 3.3 g/dL (3.5-5.0); Albumin Globulin Ratio 1.5 (1.0-2.8); Alkaline Phosphatase 108 U/L (38-126); Aspartate Aminotransferase 22 IU/L (14-36); BUN Creatinine Ratio 26.8 (6-22); Bilirubin Total 0.4 mg/dL (0.2-1.3); Blood Urea Nitrogen 49 mg/dL (7-17); Carbon Dioxide 27 mmol/L (22-32); Chloride 106 mmol/L (98-107); Estimated Glomerular Filt Rate 28 mL/min (>60); Globulin 2.2 g/dL (1.7-4.1); Glucose 106 mg/dL (80-110); HEMOLYSIS 26 (0-50); Potassium 3.5 mmol/L (3.4-5.1); Sodium 140 mmol/L (137-145); Total Protein 5.5 g/dL (6.3-8.2)
[2022-03-11 06:41] LABS: Add Manual Diff / Slide Review NO; Basophils Absolute Auto 0 /uL (0-100); Basophils Percent Auto 0.3 % (0-2); Eosinophils Absolute Auto 200 /uL (0-450); Eosinophils Percent Auto 1.7 % (2-4); Hematocrit 41.2 % (36-46); Hemoglobin 13.4 g/dL (12.0-16.0); Lymphocytes Absolute Auto 2600 /uL (1100-4500); Lymphocytes Percent Auto 25.7 % (25-40); Mean Corpuscular HGB Conc 32.5 % (30-36); Mean Corpuscular Hemoglobin 31.6 PG (26-34); Mean Corpuscular Volume 97.1 fL (80-100); Monocytes Absolute Auto 1100 /uL (0-900); Monocytes Percent Auto 10.6 % (3-14); Neutrophils Absolute Auto 6300 /uL (1500-7000); Neutrophils Percent Auto 61.7 % (50-75); Platelet Count 137 X10^3/uL (150-400); Red Blood Cell Count 4.24 X10^6/uL (4.0-5.2); Red Cell Distribution Width 14.9 % (11.6-14.8); White Blood Cell Count 10.1 X10^3/uL (4.5-11.0)
[2022-03-11] MEDS: LEVOTHYROXINE 100 MCG TABLET PO (06:50)
[2022-03-11] MEDS: PANTOPRAZOLE DR 20 MG TABLET PO (06:50)
[2022-03-11 07:36] LABS: INR 1.4 (0.9-1.3)
--- NOTE | 2022-03-11 08:57 | PM.DS.1 ---
History of Present Illness History of Present Illness Date Patient Seen: 03/11/22 Time Patient Seen: 22:34 Chief complaint: weak, dizzy Narrative: Christine Burger (Lorraine) is a bashir 76 year-old patient with a history of hypertension, hyperlipidemia, chronic hip pain, autoimmune disease, chronic kidney disease, hypothyroidism, reflux, prior DVT currently anticoagulated on Coumadin, bilateral lower extremity edema, Left venous insufficiency, and pulmonary fibrosis presents with increasing weakness, chest pain and pressure, dizziness and increasingly erratic heartbeat..? She was seen in the emergency department on 03/01 complaining of episodes of rapid heart rate x 14 days-DX frequent PACs.? She followed up with her PCP 2 days later-echocardiogram and a Zio patch ordered neither of which have been scheduled or obtained.?Her referral to [facility] is still pending.? She complains of increasing weakness dizziness to the point of near syncope.? Worse when lying down, than with standing.? Renal doctor recently discontinued carvedilol and started hydrochlorothiazide. She is concerned that it is making her symptoms worse and she is wondering if this might be contributing to issues.?She denies cough, nasal congestion, sorethroat ,headache, fever, body aches, chills, abd pain, vomiting, diarrhea, pain with urination,freq, urgency, dysuria, incontinence, recent illness, injury or trauma. In the ED pt was In the ED B/P, HR RR, were all very labile, Hypotensive/hypertensive urgency 80/62-190/83 B/P, tachycardia/bradycardia 59-144 HR, tachpnic 18-38 RR, a poor historian making HPI, ROS questionable, pt unable to recall family hx or surgical HX. At the time of admit patient was resting comfortably in bed sleeping, on no 02, and in no distress. 96.5, 158/78, 95, 24, but 99% on rm air-pt did not have an observable increased labored work of breathing. WBC 12.9, Lymph 5,600, mono 1500. K+2.9, Cl 96, Bun 56, Surgical Instrument Maker 2.24, Glu 89, GFR 22. Lipase WNL, Mag stable 2.0, Trop: 0.033, CCL:24. SOFA:3 meeting sepsis criteria. BNP 2560, CXR: no acute cardiopulmonary process, noted small pulmonary nodule RT mid lung-Unchanged since 2019. I personally reviewed EKG: rate 97, accelerated junction rhythm with possible anteroseptal infarction. Patient admitted for sepsis without Shock per SOFA at the time of admit, with leukocytosis of unknown etiology,acute new onset heart failure with Ventricular Tachycardia, bigeminy, and frequent PACs. Discharge Providers Provider Date of admission: 03/08/22 20:39 Discharge Date: 03/11/22 Primary care physician: Romie Dennis MD Consults: 03/09/22 14:46 Consult to Physical Therapy Evaluate & Treat Comment: Hypotension/near syncopy weakness Physician Instructions: Evaluate and Treat 03/09/22 14:47 Consult to Dietitian, Adult Routine Comment: Reason For Exam: BMI 27.5 Consult to Occupational Therapy Evaluate & Treat Comment: Hypotension/near syncopy weakness Physician Instructions: Evaluate and treat Discharge provider: Don Flores DO Summary Hospital Course Discharge Diagnosis: 1. Acute hypokalemia -this was likely cause of her presenting symptoms along with volume depletion, patient was recently started on HCTZ in addition to her daily furosemide -stop HCTZ and furosemide. -K 3.0 again, ordered for oral repletion. -continue to monitor. -dc lasix and HCTZ on discharge ? 2. Acute volume depletion with orthostatic hypotension, corrected -patient had documented orthostatic drop in blood pressure in ED, but improved now. -PT/OT cleared for home 3. Urinary tract infection, persistent -patient was recently on 3 day antibiotic course for pansensitive E coli -current urinalysis with many bacteria and urine culture pending, and she did have couple episodes of vomiting at home -UTI possibly contributing to weakness -started Cipro 250 mg at bedtime only x5 days, this is renally dosed 4.? Chronic kidney disease stage 4, stable 5. CHF ruled out with normal echo and clinically does not appear in heart failure 6. Premature atrial contractions -patient does not appear symptomatic from these, PACs likely exacerbated by hypokalemia 7. Microscopic polyangiitis -continue on prednisone 5 mg q.d. 8. History of DVT -INR slightly low on admit, takes warfarin 1 mg daily except 1.5 mg on Tuesdays -continue warfarin 1 mg a day, recheck in 1 week as patient is on antibiotic 9. Weakness -consult PT and OT, likely in setting of hypokalemia but has been working with PT as outpatient for R hip pain. 10. HTN ?- holding current medications for now as noted above. Resume carvediolol if she becomes hypertensives but BP currently remains controlled. Hospital Course: Admitted for weakness and dizziness. Found to have K of 2.9 and be orthostatic so given IV fluids and K repletion. Thought to be due to lasix and HCTZ so these were stopped. Was no longer orthostatic and able to dc home to f/u with PCP to discuss continuing her BP meds or not. Given cipro x5 days for possible UTI. Time Spent with Patient Time spent: Greater than 30 minutes Exam Vital Signs (past 8 hours): - 03/11/22 01:33 03/11/22 01:49 03/11/22 05:00 Temperature 96.7 F L 98.0 F Pulse Rate 47 L 98 H Pulse Rate [Orthostatic Lying] Pulse Rate [Orthostatic Sitting] Pulse Rate [Orthostatic Standing] Respiratory Rate 16 17 Blood Pressure 136/62 131/69 Blood Pressure [Orthostatic Lying] Blood Pressure [Orthostatic Sitting] Blood Pressure [Orthostatic Standing] Pulse Oximetry 95 98 97 Oxygen Delivery Method Room Air Oxygen Flow Rate 0 0 03/11/22 07:08 Temperature Pulse Rate Pulse Rate [Orthostatic Lying] 44 L Pulse Rate [Orthostatic Sitting] 51 L Pulse Rate [Orthostatic Standing] 51 L Respiratory Rate Blood Pressure Blood Pressure [Orthostatic Lying] 141/56 H Blood Pressure [Orthostatic Sitting] 133/47 L Blood Pressure [Orthostatic Standing] 119/56 L Pulse Oximetry Oxygen Delivery Method Oxygen Flow Rate Oxygen Delivery Method Room Air Oxygen Flow Rate 0 Narrative Exam Narrative: General:? Patient is well developed and well nourished, in no distress at this time. HEENT:? Normocephalic, atraumatic, extraocular muscles intact, oral pharynx is clear and mucous membranes are moist. Neck: supple and symmetric, trachea is midline, no cervical adenopathy. Negative for JVD Chest:? Normal AP diameter and contour without kyphoscoliosis, no tachypnea, equal chest rise bilaterally. Lungs:? CTA b/l no wheezing rhonchi or rales. Cardio:?RRR no m/r/g. Abdomen: S NT ND. Musculoskeletal:? Muscle strength and tone are equal, no deformity. Extremities: b/l LE non pitting edema, chronic, R > L. No joint effusion. Skin:? Pale,? Warm to touch,dry and intact without rashes, ulcerations or petechiae.? Neuro:? Alert and orientated x3,? sensation to touch intact in all extremities, no gross deficits noted of cranial nerves. Psych:? Patient has a well-kept appearance, appropriate affect, mental status attitude thought context and judgment are appropriate for age. Objective Labs Result Diagrams: 03/11/22 05:10 03/11/22 05:10 Labs: Laboratory Results - last 24 hr 03/10/22 03/11/22 03/11/22 07:08 05:10 05:10 WBC 10.1 RBC 4.24 Hgb 13.4 Hct 41.2 MCV 97.1 MCH 31.6 MCHC 32.5 RDW 14.9 H Plt Count 137 L Neut % (Auto) 61.7 Lymph % (Auto) 25.7 [place] % (Auto) 10.6 Eos % (Auto) 1.7 L Baso % (Auto) 0.3 Neut # (Auto) 6300 Lymph # (Auto) 2600 [place] # (Auto) 1100 H Eos # (Auto) 200 Baso # (Auto) 0 PT 18.0 H INR 1.6 H Sodium 140 Potassium 3.5 Chloride 106 Carbon Dioxide 27 BUN 49 H Creatinine 1.83 H Estimated GFR 28 L BUN/Creatinine Ratio 26.8 H Glucose 106 Calcium 9.0 Total Bilirubin 0.4 AST 22 ALT 18 Alkaline Phosphatase 108 Total Protein 5.5 L Albumin 3.3 L Globulin 2.2 Albumin/Globulin Ratio 1.5 03/11/22 05:10 WBC RBC Hgb Hct MCV MCH MCHC RDW Plt Count Neut % (Auto) Lymph % (Auto) [place] % (Auto) Eos % (Auto) Baso % (Auto) Neut # (Auto) Lymph # (Auto) [place] # (Auto) Eos # (Auto) Baso # (Auto) PT 16.0 H INR 1.4 H Sodium Potassium Chloride Carbon Dioxide BUN Creatinine Estimated GFR BUN/Creatinine Ratio Glucose Calcium Total Bilirubin AST ALT Alkaline Phosphatase Total Protein Albumin Globulin Albumin/Globulin Ratio [facility] Medical History Autoimmune disease Bilateral lower extremity edema Chronic anticoagulation Chronic kidney disease Hyperlipidemia Hypertension Left leg DVT Renal insufficiency Social History household members: spouse Smoking Status: Never smoker alcohol intake: current Discharge Plan Discharge Plan Patient Disposition: Home Provider Discharge Comment: You were admitted for weakness and dizziness. We found that your BP was low as well as your potassium, which is likely from the lasix and HCTZ blood pressure meds you were taking. We have stopped those. Please see your PCP about resuming one of them but it is not a good idea to take both since they essentially do the same thing. We also treated you for 3 days for a UTI and you have 2 more days of oral antibiotic to take at home to complete things. Discharge orders & Medications Prescriptions: New ciprofloxacin HCl 250 mg Tablet 250 mg PO DAILY 2 Days Qty: 2 0RF Rx Instructions: start on 03/12 and take 2 more days to complete 5 day treatment Continued simvastatin [Zocor] 20 MG tablet 20 mg PO HS Qty: 0 warfarin 1 mg tablet 1 mg PO DAILY Rx Instructions: takes 1mg all days except monday takes 1.5mg cholecalciferol (vitamin D3) 1,000 unit capsule 1,000 unit PO DAILY polyethylene glycol 3350 17 gram powder in packet 17 gram PO DAILY ondansetron HCl [Zofran] 4 mg tablet 4 mg PO TID PRN (Reason: nausea) prednisone 5 mg tablet 5 mg PO DAILY acetaminophen [Tylenol Extra Strength] 500 mg tablet 500 mg PO Q6H PRN (Reason: Pain (Scale Score 4-6)) omeprazole 20 mg capsule,delayed release(DR/EC) 20 mg PO BID ranitidine HCl 150 mg capsule 300 mg PO DAILY PRN (Reason: Allergy Symptoms) levothyroxine 100 mcg capsule 100 mcg PO DAILY topiramate 25 mg capsule,extended release 24hr 50 mg PO BEDTIME Discontinued hydrochlorothiazide 12.5 mg Tablet 12.5 mg PO DAILY furosemide 40 mg tablet 20 mg PO DAILY Follow up/Referrals: Romie Dennis MD [Primary Care Provider] - 2 Weeks Visit Report/Discharge Packet Instructions: DI for Prescription Opioid Use Discharge Data Primary Care Provider: Romie Dennis Attending Provider: Beverley Pendleton VTE Deep Vein Thrombosis/Pulmonary Embolism Present on Admission: No
--- NOTE | 2022-03-11 09:48 | OT.IP.EVAL ---
Past Medical History (Last Reviewed 03/10/22 @ 09:40 by Toby Mullins DO) Autoimmune disease Bilateral lower extremity edema Chronic anticoagulation Chronic kidney disease Hyperlipidemia Hypertension Left leg DVT Renal insufficiency Occupational Therapy Inpatient Evaluation/Re-Eval M1 PT/OT-IP Prior Functional Status Start: 03/10/22 13:27 Freq: NEEDED Status: Active Protocol: Document 03/11/22 09:15 [facility] (Rec: 03/11/22 12:55 [facility] [id number]) Medical Review Prior Functional Status Medical History Reviewed Yes Communication able to make needs known Mobility and Gait pt stated that she is independent with all mobilities and ambulation using a 4WW but occasionally without AD but furniture cruises for short distance ambulation in her house Activities of Daily Living and IADL's Pt states able to do her ADL's and her is there to assist when she gets tired. Social History Household Members spouse Living Arrangements House Number of Floors (Floors) One Floor Number of Stairs To Enter/Railing? 1 step to enter Home Environment Standard Height Toilet,Tub/ Shower Home Equipment Front Wheel Walker,Four Wheel Walker,Manual Wheelchair, Bedside Commode,Tub Transfer Bench,Hand Held Shower,Grab Bars In Shower M2 OT-IP Current Condition Start: 03/11/22 12:30 Freq: Status: Active Protocol: Document 03/11/22 09:15 [facility] (Rec: 03/11/22 12:55 [facility] [id number]) Occupational Therapy Current Condition Current Condition Evaluation Date 03/11/22 Treatment Diagnosis Acute hypokalemia,UTI Diagnosis Onset Date 03/08/22 M3 OT- IP Subjective and Pain Start: 03/11/22 12:30 Freq: Status: Active Protocol: Document 03/11/22 09:15 [facility] (Rec: 03/11/22 12:55 [facility] [id number]) OT- Subjective Occupational Therapy Visit Type Type Initial Evaluation Visit Start Time 09:15 Visit Stop Time 09:48 Total Visit Minutes 33 Occupational Therapy Visit Comments Patient Comments Pt wanting to go to the bathroom. Patient/Caregiver Goals TO go home. OT Pain Assessment Pain When Pain Assessed At Rest Pain Present Pain Present Pain Reported M4 OT- IP ADL's Start: 03/11/22 12:30 Freq: Status: Active Protocol: Document 03/11/22 09:15 [facility] (Rec: 03/11/22 12:55 [facility] [id number]) OT [id number] Comments OT Self-Feeding Comments Not at meal joselo. OT ADL-Grooming General Evaluation Grooming Ability Standby Assistance Areas Needing Assistance Retrieving/Set-up of Grooming Items OT ADL-Oral Care Comments Oral Care Comments Not performed. OT ADL-Dressing General Eval Lower Body Dressing Ability Standby Assistance Comments OT Dressing Comments Pt able to lean over to anna her brief over her feet and pull them up after standing with close SBA. OT ADL-Toileting General Evaluation Toileting Ability Standby Assistance Comments OT Toileting Comments Pt able to do her toileting needs with increased time and SBA for safety. OT ADL-Bathing Comments OT Bathing Comments Not performed. Pt has a sliding shower chair in which her assist her for showering needs. M5 OT- IP IADL's Start: 03/11/22 12:30 Freq: Status: Active Protocol: Document 03/11/22 09:15 [facility] (Rec: 03/11/22 12:55 [facility] [id number]) OT-Instrumental Activities of Daily Living Deficits IADL Deficits Identified Deficits Home Safety Awareness Awareness of Need for Assistance at Home Good Awareness Medication Management Medication Management Caregiver Administers Money Management Money Management Caregiver Provides Assistance Meal Preparation Meal Preparation Comments Pt states sit in the stool to assist with cooking needs. Wine Cellar Stock Clerk Wine Cellar Stock Clerk Caregiver Provides Assist Driving Driving Caregiver Provides Assist M6 OT- IP Functional Cognition Start: 03/11/22 12:30 Freq: Status: Active Protocol: Document 03/11/22 09:15 [facility] (Rec: 03/11/22 12:55 [facility] [id number]) Cognitive Factors Limiting Selfcare Function Cognitive Ability Level of Alertness Alert Patient Orientation Name,Age,Place,Situation Attention Span Ability Capable of Focused Attention, Capable of Sustained Attention Ability to Follow Commands Able to Follow One Step Commands Memory Description Short Term Impaired Safety Awareness Underestimates Need for Assistance Cognitive Comments Cognitive Assessment Comments Pt tends to want to grab surfaces and grab bars versus use of the FWW to turn all the way around first before sitting down. OT- Vision and Hearing OT- Vision Assessment Visual Acuity Glasses For Reading Vision Assessment Comments Pt states has hearing aids ordered. M7 OT- IP Mobility and Balance Start: 03/11/22 12:30 Freq: Status: Active Protocol: Document 03/11/22 09:15 [facility] (Rec: 03/11/22 12:55 [facility] [id number]) OT- Bed Mobility Assessment Supine to Sit Supine to Sit Assist Standby Assistance Sit to Supine Sit to Supine Assist Standby Assistance OT-Transfer Assessment Sit to and From Stand Sit to and from Stand Standby Assistance Transfers Transfer Ability Standby Assistance Technique Transfer Destination Bed,Toilet Devices Transfer Assistive Devices Gait Belt,Front Wheeled Walker Comments Mobility Comments Pt SBA with transfer and mobility with the FWW. Supine BP 112/45, sitting 127/57, standing 138/54 and after use of the toilet 89/66. OT- Balance Assessment Sitting Balance and Reactions Static Sitting Balance Ability Good Dynamic Sitting Balance Ability Good Standing Balance and Reactions Static Standing Balance Ability Good Dynamic Standing Balance Ability Fair M8 OT- IP Objective Assessments Start: 03/11/22 12:30 Freq: Status: Active Protocol: Document 03/11/22 09:15 [facility] (Rec: 03/11/22 12:55 [facility] [id number]) OT-Muscle Tone Assessment Muscle Tone WNL Yes M9 OT- IP Assessment and Plan Start: 03/11/22 12:30 Freq: Status: Active Protocol: Document 03/11/22 09:15 [facility] (Rec: 03/11/22 12:55 [facility] [id number]) OT Summary Assessment and Plan Potential Rehabilitation Potential Good Analytic Complexity at Evaluation Moderate Summary OT Impairments Pain,Balance,Functional Mobility,Toileting,Bathing, Shower Transfers,Activity Tolerance Progress Towards Goals Progressing Toward Goals Assessment Summary Pt LOW complexity and has a supportive to assist with her needs as pt fatigues quickly and has been having cardiac issues. Pt looking to go home when medically stable. Goals Grooming Goal Independent Dressing Goal Independent Toileting Goal Independent Bathing Goal Minimal Assistance Toilet Transfer Goal Independent Shower Transfer Goal Minimal Assistance Days to Meet Goals 3 Frequency of Treatment Frequency Of Treatment Once a Day Treatment Plan OT Treatment Plan ADL Training,Functional Mobility,Patient/Family Education,Discharge Planning Discharge Recommendations OT Discharge Recommendations Home with Assistance Transportation Needs at Discharge Private Vehicle
[2022-03-11] MEDS: ENOXAPARIN 30 MG/0.3 ML SYRINGE SUBCUT (10:03)
[2022-03-11] MEDS: predniSONE 5 MG TABLET PO (10:03)
[2022-03-11] MEDS: polyethylene glycoL 3350 17 GM POWD.PACK PO (10:03)
[2022-03-11] MEDS: LIDOCAINE PATCH 1 EACH ADH..PATCH TOP (10:04)
[2022-03-11] MEDS: SODIUM CHLORIDE 0.9% 500 ML IV (10:06)
[2022-03-11] MEDS: POTASSIUM CHLORIDE 20 MEQ TAB 40 MEQ PO (10:07)
--- NOTE | 2022-03-11 12:29 | PT.IPTN ---
Physical Therapy Treatment Note M2 PT-IP Current Condition Start: 03/10/22 13:27 Freq: NEEDED Status: Active Protocol: Document 03/10/22 10:05 AB (Rec: 03/10/22 13:44 AB [id number]) Physical Therapy Current Condition Current Condition Evaluation Date 03/10/22 Treatment Diagnosis CHF; UTI; hypokalemia; difficulty in walking Onset Date 03/08/22 M3 PT-IP Subjective Start: 03/10/22 13:27 Freq: NEEDED Status: Active Protocol: Document 03/11/22 12:29 DLM (Rec: 03/11/22 13:03 DLM [id number]) Subjective Physical Therapy Visit Type Type Progress Note Visit Start Time 12:00 Visit Stop Time 12:29 Total Visit Minutes 29 Number of GIS ANALYST Visits 0 Physical Therapy Visit Comments Patient Comments She reports she is feeling better today, no light- headedness when up, she describes her legs getting tired/weak after gait Patient Goals Discharge home Therapy Pain Assessment Pain When Pain Assessed After Treatment Pain Present Pain Present Denied Pain M4 PT-IP Mobility and Gait Start: 03/10/22 13:27 Freq: NEEDED Status: Active Protocol: Document 03/11/22 12:29 DLM (Rec: 03/11/22 13:03 DLM [id number]) PT-Transfer Assessment Sit to and From Stand Sit to and from Stand Independent,Use of Upper Extremities Equipment Transfer Assistive Device Gait Belt,Front Wheeled Walker Transfers Transfer Destination Chair,Toilet Transfer Technique Stand Step Pivot Transfer Ability Level of Assist Standby Assistance,Use of Upper Extremities Comments Mobility Comments Pt is up on the toilet at the start of this visit. Pt left up in recliner at the end of this visit and set up for lunch. Gait Assessment Gait Gait Assistance Required: Standby Assistance Distance (Feet) 100 Assistive Devices Assistive Device Gait Belt,Front Wheeled Walker Gait Deviations General Gait Pattern Antalgic Factors Limiting Gait Function Factors Limiting Gait Function Decreased Activity Tolerance, Pain Comments Gait Comments chronic right hip pain with gait Stair Climbing Assessment Comments Stair Climbing Comments ramp at the house, has wheelchair she can use if needed PT-Balance Assessment Sitting Balance and Reactions Static Sitting Balance Ability Good Dynamic Sitting Balance Ability Good Standing Balance and Reactions Static Standing Balance Ability Good Dynamic Standing Balance Ability Good Device Used FWW M5 PT-IP Objective Assessments Start: 03/10/22 13:27 Freq: NEEDED Status: Active Protocol: Document 03/11/22 12:29 DLM (Rec: 03/11/22 13:03 DL [id number]) Orientation Orientation/Cognition Level of Alertness Alert Orientation Name,Place,Situation Language Function Ability No Deficits Noted Safety Awareness Understands Safety Issues Memory Description No Deficits Noted M6 PT-IP Treatment Start: 03/10/22 13:27 Freq: NEEDED Status: Active Protocol: Document 03/11/22 12:29 DLM (Rec: 03/11/22 13:03 DL [id number]) Physical Therapy Treatment Education Education Provided Safety M7 PT-IP Assessment and Plan Start: 03/10/22 13:27 Freq: NEEDED Status: Active Protocol: Document 03/11/22 12:29 DLM (Rec: 03/11/22 13:03 DL [id number]) PT Summary Assessment and Plan Summary Impairments Pain,Strength,Balance,Bed Mobility,Transfers,Gait, Activity Tolerance Progress Towards Goals Progressing Toward Goals Assessment Summary Nina is alert and she reports feeling better today. She is up using the toilet with nursing. She agreed to ambulate in the young before lunch. She tolerated gait well without light-headedness. She describes only mild fatigue with gait. Her Spouse reports they were sent a heart monitor to wear at home by their PCP. Pt appears safe to discharge home with her Spouse when she is medically cleared. She has a ramp to enter her house so removed her stairs goals from the plan. Goals Bed Mobility Goal Independent Transfer Goal Independent,Front Wheeled Walker,Four Wheeled Walker Gait Goal Independent,Front Wheel Walker ,Four Wheel Walker Gait Distance 200 Days to Meet Goals 10 Frequency of Treatment Frequency Of Treatment Once a Day Treatment Plan Physical Therapy Treatment Plan Bed Mobility Training,Transfer Training,Gait Training, Therapeutic Exercise,Balance Retraining,Discharge Planning, Hot or Cold Pack,Neuromuscular Re-ed,Coordination Retraining Precautions Other Precautions orthostatic hypotension Recommendations To Nursing Amount of Assist Needed 1 Person Assist Discharge Recommendations PT Discharge Recommendations Home with Assistance,Home Health Other Discharge Recommendations Spouse is able to assist her Transportation Needs at Discharge Private Vehicle
[2022-03-11] MEDS: CIPROFLOXACIN 250 MG TABLET PO (13:14)
--- NOTE | 2022-03-11 14:05 | PC.NURSE ---
Addendum entered by Rachid Young R.N. 03/11/22 15:47: Pt readied for d/c, IV d/c'd intact. Instructions given. Pt escorted to car via w/c. In car of her . Original Note: Pt alert and oriented offers no overt c/o pain. Presently sitting up in chair having lunch.
== END 2022-03-11 15:35 | disposition home or self-care (01) ==
LOC: ED 19:51 → AC 20:42
PROVIDERS: Emergency Medicine; Admitting Provider Nurse Practitioner Family; Emergency Provider Emergency Medicine; PCP Internal Medicine; Visit Provider Nurse Practitioner Family
DX: R07.9 Chest pain, unspecified (principal); R42 Dizziness and giddiness; R53.1 Weakness; I12.9 Hypertensive chronic kidney disease with stage 1 through stage 4 chronic kidney disease, or unspecified chronic kidney disease; N18.4 Chronic kidney disease, stage 4 (severe); E87.6 Hypokalemia; E86.9 Volume depletion, unspecified; I95.1 Orthostatic hypotension; N39.0 Urinary tract infection, site not specified; B96.20 Unspecified Escherichia coli [E. coli] as the cause of diseases classified elsewhere; I49.1 Atrial premature depolarization; M31.7 Microscopic polyangiitis; Z86.718 Personal history of other venous thrombosis and embolism; Z79.01 Long term (current) use of anticoagulants; Z20.822 Contact with and (suspected) exposure to COVID-19
CPT/HCPCS: 36415; 71045; 80053; 80061; 82550; 83690; 83735; 83880; 84145; 84443; 84484; 85025; 85610; 85730; 87040; 87086; 87633; 87797; 93005; 93010; 93306; 96365; 96366; 97116; 97162; 97165; 97530; 99284; G0378; J1650; J1940

== ENCOUNTER → 2022-04-12 14:57 | Outpatient (CLI) | payer MEDICARE, OTHER, SELFPAY ==
[2022-03-08 22:00] VITALS: BMI 27.5
[2022-04-12 17:02] LABS: BUN Creatinine Ratio 15.8 (6-22); Blood Urea Nitrogen 26 mg/dL (7-17); Calcium 8.8 mg/dL (8.4-10.2); Carbon Dioxide 23 mmol/L (22-32); Chloride 109 mmol/L (98-107); Estimated Glomerular Filt Rate 32 mL/min (>60); Glucose 91 mg/dL (80-110); HEMOLYSIS < 15 (0-50); Potassium 3.4 mmol/L (3.4-5.1); Sodium 142 mmol/L (137-145)
[2022-04-12 17:13] LABS: NT-proBNP (BNP-Adult 18+) 2990 pg/mL (<450)
== END ==
PROVIDERS: PCP Internal Medicine; Referring Provider Student in an Organized Health Care Education/Training Program; Visit Provider Student in an Organized Health Care Education/Training Program
DX: I50.32 Chronic diastolic (congestive) heart failure (principal); N05.9 Unspecified nephritic syndrome with unspecified morphologic changes
CPT/HCPCS: 36415; 80048; 83880

== ENCOUNTER 2022-04-29 17:17 | Emergency (ER) | payer MEDICARE, OTHER, SELFPAY ==
[2022-03-08 22:00] VITALS: BMI 27.5
[2022-04-29] VITALS (8 sets, daily range): BP systolic 179–206; BP diastolic 86–98; PULSE 83–153; RESP 16–61; TEMP 36.7; O2SAT 82–97; BMI 27.4
--- NOTE | 2022-04-29 17:27 | DI.CT.S_ITS ---
PROCEDURE: CT CERVICAL SPINE WO CON INDICATIONS: fall, thinners TECHNIQUE: Noncontrast 3 mm thick sections acquired from the skull base to the T4 level. Sagittal and coronal reformats were then constructed. For radiation dose reduction, the following was used: automated exposure control, adjustment of mA and/or kV according to patient size. COMPARISON: [facility], CR, XR CHEST 1V, 04/29/2022, 17:36. [facility], CR, XR HIP W PEL IF DONE LT 2V, 04/29/2022, 17:36. [facility], CT, CT HEAD/BRAIN WO CON, 04/29/2022, 17:33. [facility], CT, CT CERVICAL SPINE WO CON, 08/18/2018, 10:57. FINDINGS: Image quality: This examination is somewhat limited by quantum mottle artifact. Bones: No acute appearing fractures or dislocations. At T3 and T4, there are mild anterior wedge deformity is seen, which are similar to 2019. Visualized superior ribs are intact. Moderate generalized degenerative changes can be seen. Soft tissues: Prevertebral soft tissues are normal in thickness. No paravertebral hematomas. No apical pneumothoraces. Atherosclerotic calcification is noted. IMPRESSION: Negative for acute fracture. Stable mild T3 and T4 anterior wedge deformities. Dictated by: Danny Lou M.D. on 04/29/2022 at 17:26 Approved by: Danny Lou M.D. on 04/29/2022 at 17:28
--- NOTE | 2022-04-29 17:27 | DI.RAD.S_ITS ---
PROCEDURE: XR CHEST 1V INDICATIONS: fall, hit head, dizzy TECHNIQUE: One view of the chest was acquired. COMPARISON: [facility], CR, XR HIP W PEL IF DONE LT 2V, 04/29/2022, 17:36. [facility], CT, CT HEAD/BRAIN WO CON, 04/29/2022, 17:33. [facility], CT, CT CERVICAL SPINE WO CON, 04/29/2022, 17:33. [facility], CR, XR CHEST 1V, 03/08/2022, 17:44. FINDINGS: Surgical changes and devices: Cholecystectomy clips are seen. Lungs and pleura: On this supine examination, no large pneumothorax or large pleural effusions are seen. No focal areas of lung consolidation are seen. Low lung volumes are noted. This causes a crowded appearance to the lung markings and limits evaluation. Mediastinum: Mediastinal contours appear normal. Heart size is normal. Atherosclerotic calcification of the aortic arch is noted. Bones and chest wall: No suspicious bony lesions. Age-appropriate bony degenerative changes are seen. Overlying soft tissues appear unremarkable. IMPRESSION: Limited portable chest study, without an acute abnormality seen. Postoperative and degenerative changes are seen. Dictated by: Danny Lou M.D. on 04/29/2022 at 17:29 Approved by: Danny Lou M.D. on 04/29/2022 at 17:30
--- NOTE | 2022-04-29 17:27 | DI.CT.S_ITS ---
PROCEDURE: CT HEAD/BRAIN WO CON INDICATIONS: fall, hit head TECHNIQUE: Noncontrast 4.5 mm thick angled axial sections acquired from the foramen magnum to the vertex, with coronal and sagittal reformats. For radiation dose reduction, the following was used: automated exposure control, adjustment of mA and/or kV according to patient size. COMPARISON: [facility], CT, CT HEAD/BRAIN WO CON, 08/18/2018, 10:57. [facility], CR, XR CHEST 1V, 04/29/2022, 17:36. [facility], CR, XR HIP W PEL IF DONE LT 2V, 04/29/2022, 17:36. [facility], CT, CT CERVICAL SPINE WO CON, 04/29/2022, 17:33. [facility], CT, CT HEAD/BRAIN WO CON, 09/03/2020, 16:28. FINDINGS: Image quality: Mild streak artifact can be seen through the skull base. CSF spaces: Basal cisterns are patent. No extra-axial fluid collections. The ventricles are symmetric in size and shape. Brain: No intracranial bleeds or masses. There is cerebral volume loss for age, with resultant ventricular and sulcal prominence. There are periventricular and deep white matter chronic small vessel ischemic changes. There is intracranial internal carotid artery atherosclerosis. Skull and face: Soft tissue scalp hematoma can be seen on the left posteriorly and inferiorly. No associated calvarial fracture can be seen. Calvarium and visualized facial bones appear intact, without suspicious lesions. Sinuses: Visualized sinuses and mastoids are clear. IMPRESSION: Soft tissue scalp hematoma seen posteriorly and on the left. No associated fracture is seen. No acute intracranial hemorrhage is seen. No acute intracranial process is seen. Dictated by: Danny Lou M.D. on 04/29/2022 at 17:25 Approved by: Danny Lou M.D. on 04/29/2022 at 17:26
--- NOTE | 2022-04-29 17:35 | DI.RAD.S_ITS ---
PROCEDURE: XR HIP W PEL IF DONE LT 2V INDICATIONS: left hip, fall TECHNIQUE: AP pelvis with lateral view(s) of the left hip(s). COMPARISON: [facility], CT, CT PEL WO CON, 12/22/2021, 15:34. [facility], CR, XR CHEST 1V, 04/29/2022, 17:36. [facility], CT, CT HEAD/BRAIN WO CON, 04/29/2022, 17:33. [facility], CT, CT CERVICAL SPINE WO CON, 04/29/2022, 17:33. [facility], CR, XR HIP W PEL IF DONE LT 2V, 11/22/2019, 15:02. FINDINGS: Bones: No acute appearing fractures or dislocations. There is stable irregularity seen involving the left pubis, where there is a chronic fracture present. Pelvic ring appears intact. No suspicious bony lesions. Unremarkable right hip arthroplasty hardware is seen. Age-appropriate lower lumbar spine degenerative changes are noted. Soft tissues: The visualized bowel gas pattern is normal. No suspicious soft tissue calcifications. IMPRESSION: No selma acute fracture can be seen on these plain films. If there is point tenderness (or other clinical suspicion for a fracture not seen on these images) then a dedicated CT could be considered for further evaluation, if clinically appropriate. Chronic fracture of the left pubis. Right hip arthroplasty hardware is seen. Dictated by: Danny Lou M.D. on 04/29/2022 at 17:30 Approved by: Danny Lou M.D. on 04/29/2022 at 17:31
[2022-04-29 17:41] LABS: Add Manual Diff / Slide Review NO; Basophils Absolute Auto 0 /uL (0-100); Basophils Percent Auto 0.3 % (0-2); Eosinophils Absolute Auto 0 /uL (0-450); Eosinophils Percent Auto 0.3 % (2-4); Hematocrit 46.3 % (36-46); Hemoglobin 15.3 g/dL (12.0-16.0); Lymphocytes Absolute Auto 2700 /uL (1100-4500); Lymphocytes Percent Auto 25.5 % (25-40); Mean Corpuscular Hemoglobin 31.4 PG (26-34); Mean Corpuscular Volume 95.2 fL (80-100); Monocytes Absolute Auto 700 /uL (0-900); Monocytes Percent Auto 6.5 % (3-14); Neutrophils Absolute Auto 7200 /uL (1500-7000); Neutrophils Percent Auto 67.4 % (50-75); Platelet Count 152 X10^3/uL (150-400); Red Blood Cell Count 4.86 X10^6/uL (4.0-5.2); Red Cell Distribution Width 14.2 % (11.6-14.8); White Blood Cell Count 10.8 X10^3/uL (4.5-11.0)
[2022-04-29 17:48] LABS: INR 2.6 (0.9-1.3); Prothrombin Time 30.7 SECONDS (10.1-12.7)
[2022-04-29 17:50] LABS: PTT Partial Thromboplastin Tim 32 SECONDS (26-36)
[2022-04-29 17:52] LABS: Alanine Aminotransferase 30 IU/L (<35); Albumin 4.5 g/dL (3.5-5.0); Albumin Globulin Ratio 1.5 (1.0-2.8); Alkaline Phosphatase 97 U/L (38-126); Aspartate Aminotransferase 37 IU/L (14-36); BUN Creatinine Ratio 18.8 (6-22); Bilirubin Total 0.6 mg/dL (0.2-1.3); Blood Urea Nitrogen 29 mg/dL (7-17); Calcium 9.4 mg/dL (8.4-10.2); Carbon Dioxide 22 mmol/L (22-32); Chloride 106 mmol/L (98-107); Creatine Kinase 38 U/L (30-135); Estimated Glomerular Filt Rate 35 mL/min (>60); Globulin 3.1 g/dL (1.7-4.1); Glucose 97 mg/dL (80-110); HEMOLYSIS < 15 (0-50); Lipase 52 U/L (23-300); Potassium 4.3 mmol/L (3.4-5.1); Sodium 140 mmol/L (137-145); Total Protein 7.6 g/dL (6.3-8.2)
[2022-04-29 18:04] LABS: NT-proBNP (BNP-Adult 18+) 2610 pg/mL (<450); Troponin I 0.014 ng/mL (0.01-0.034)
--- NOTE | 2022-04-29 19:03 | ED.FALL ---
HPI - Fall General Chief Complaint: Fall Stated Complaint: Fall, on blood thinners, hit head Time Seen by Provider: 04/29/22 17:27 Source: patient and family Mode of arrival: Wheelchair Limitations: no limitations History of Present Illness HPI Narrative: 76-year-old female. Is on blood thinners. Arrived for evaluation of injuries that she sustained when she states she was standing in her kitchen and then became lightheaded and fell. She did hit her head on the oven door. She then landed on her left hip. There was no loss of consciousness. She does have left hip pain. Has bruising over the left hip. The left hip pain is not necessarily new from this fall is just worsened. She has no neck pain. She can not describe any other symptoms associated with the lightheadedness. She is having headache but this is also not new from the fall. She has gotten lightheaded occasionally in the past. She has fallen in the past. Today she could not get up off the floor and had a EMS help her. Her is at bedside and provided some HPI. Related Data Home Medications Medication Instructions Recorded Confirmed simvastatin 20 mg tablet (Zocor) 20 mg PO HS ##0 03/12/12 03/08/22 acetaminophen 500 mg tablet 500 mg PO Q6H PRN Pain (Scale 10/09/17 03/08/22 (Tylenol Extra Strength) Score 4-6) levothyroxine 100 mcg capsule 100 mcg PO DAILY 10/09/17 03/08/22 omeprazole 20 mg capsule,delayed 20 mg PO BID 10/09/17 03/08/22 release ondansetron HCl 4 mg tablet 4 mg PO TID PRN nausea 10/09/17 03/08/22 (Zofran) polyethylene glycol 3350 17 gram 17 gram PO DAILY 10/09/17 03/08/22 oral powder packet prednisone 5 mg tablet 5 mg PO DAILY 10/09/17 03/08/22 ranitidine HCl 150 mg capsule 300 mg PO DAILY PRN Allergy 10/09/17 03/08/22 Symptoms topiramate 25 mg capsule,extended 50 mg PO BEDTIME 10/09/17 03/08/22 release 24 hr cholecalciferol (vitamin D3) 25 1,000 unit PO DAILY 07/13/18 03/08/22 mcg (1,000 unit) capsule warfarin 1 mg tablet 1 mg PO DAILY 07/13/18 03/08/22 Allergies Allergy/AdvReac Type Severity Reaction Status Date / Time amoxicillin [AMOXICILLIN] Allergy Severe rash and Verified 04/29/22 17:28 diarrhea oxybutynin Allergy Severe tongue Verified 04/29/22 17:28 swells Sulfa (Sulfonamide Allergy Severe fever and Verified 04/29/22 17:28 Antibiotics) rash [SULFA (SULFONAMIDE ANTIBIOTICS)] NSAIDS (Non-Steroidal Allergy Unknown Verified 04/29/22 17:28 Anti-Inflamma [NSAIDS (NON-STEROIDAL ANTI-INFLAMMA] cephalexin Allergy rash Verified 04/29/22 17:28 codeine [CODEINE] AdvReac Mild headache Verified 04/29/22 17:28 duloxetine [From CYMBALTA] AdvReac Mild vomiting Verified 04/29/22 17:28 morphine [MORPHINE] AdvReac Mild vomiting Verified 04/29/22 17:28 nitrofurantoin AdvReac Mild vomiting Verified 04/29/22 17:28 [From MACROBID] carisoprodol AdvReac Verified 04/29/22 17:28 piroxicam [From Feldene] AdvReac Verified 04/29/22 17:28 tolterodine AdvReac Verified 04/29/22 17:28 Review of Systems Constitutional Constitutional: Reports system reviewed and no additional complaints, except as documented ENT Ears, Nose, Mouth, and Throat: Reports system reviewed and no additional complaints, except as documented Cardiovascular Cardiovascular: Reports system reviewed and no additional complaints, except as documented Respiratory Respiratory: Reports system reviewed and no additional complaints, except as documented Gastrointestinal Gastrointestinal: Reports system reviewed and no additional complaints, except as documented Integumentary/Breasts Skin/Breast: Reports system reviewed and no additional complaints, except as documented Neurologic Neurologic: Reports system reviewed and no additional complaints, except as documented Hematologic/Lymphatic On Anticoagulants: Yes Patient History Medical History Autoimmune disease Bilateral lower extremity edema Chronic anticoagulation Chronic kidney disease Hyperlipidemia Hypertension Left leg DVT Renal insufficiency Social History household members: spouse Smoking Status: Never smoker alcohol intake: current Smoking Status: Never smoker alcohol intake frequency: 0-2 drinks per day Substance Use Type: does not use Exam Initial Vital Signs Initial Vital Signs: Vital Signs Temperature 98.0 F 04/29/22 17:28 Pulse Rate 86 04/29/22 17:28 Respiratory Rate 18 04/29/22 17:28 Blood Pressure 206/98 H 04/29/22 17:28 Pulse Oximetry 96 04/29/22 17:28 Oxygen Delivery Method 04/29/22 17:28 Const General: cooperative, comfortable and No ill appearing HENMT Head: normal to inspection and normocephalic Resp Effort & Inspection: normal respiratory effort Auscultation: clear to auscultation bilaterally Cardio Rate: regular rate Rhythm: regular rhythm Neuro General: patient alert, patient awake, patient oriented x3 and moves all extremities Extrem General: capillary refill normal Scores GCS Miguel coma scale eye opening: Spontaneous [place] coma scale verbal response: Orientated [place] coma scale motor response: Obey commands [place] coma scale total score: 15 Course Orders Ordered: ED Orders 04/29/22 17:27 CT cervical spine wo con Stat CT head/brain wo con Stat XR chest 1V Stat 04/29/22 17:30 Complete Blood Count AUTO DIFF Stat Comprehensive Metabolic Panel Stat Lipase Stat NT-proBNP (BNP-Adult 18+) Stat Partial Thromboplastin Time Stat Prothrombin Time INR Stat Troponin & CK Cardiac Panel Stat 04/29/22 17:35 XR hip w pel if done LT 2V Stat 04/29/22 18:06 EKG-12 Lead Stat Vital Signs Vital signs: Vital Signs - 8 hr 04/29/22 18:00 04/29/22 18:33 04/29/22 19:00 Pulse Rate 96 H 153 H 89 Respiratory Rate 20 27 H 43 H Blood Pressure Pulse Oximetry 97 82 L 97 04/29/22 19:35 04/29/22 19:59 04/29/22 19:59 Pulse Rate 116 H 86 Respiratory Rate 61 H 24 Blood Pressure 179/86 H Pulse Oximetry 83 L 96 04/29/22 20:00 Pulse Rate 83 Respiratory Rate 24 Blood Pressure Pulse Oximetry 97 MDM - Fall Differential Diagnosis Differential diagnosis: Likely syncope and other (Fractures, dislocations, intracranial hemorrhage, and others) Condition is:: Improved Chronic Condition is having:: Mild excerbation Condition is at treatment goal?: Yes Lab Data Attestation: I reviewed the patient's lab results. 04/29/22 17:30 04/29/22 17:30 Labs: Lab Results 04/29/22 04/29/22 04/29/22 Range/Units 17:30 17:30 17:30 WBC 10.8 (4.5-11.0) X10^3/uL RBC 4.86 (4.0-5.2) X10^6/uL Hgb 15.3 (12.0-16.0) g/dL Hct 46.3 H (36-46) % MCV 95.2 (80-100) fL MCH 31.4 (26-34) PG MCHC 33.0 (30-36) % RDW 14.2 (11.6-14.8) % Plt Count 152 (150-400) X10^3/uL Neut % (Auto) 67.4 (50-75) % Lymph % (Auto) 25.5 (25-40) % [place] % (Auto) 6.5 (3-14) % Eos % (Auto) 0.3 L (2-4) % Baso % (Auto) 0.3 (0-2) % Neut # (Auto) 7200 H (9824-1986) /uL Lymph # (Auto) 2700 (0705-4824) /uL [place] # (Auto) 700 (0-900) /uL Eos # (Auto) 0 (0-450) /uL Baso # (Auto) 0 (0-100) /uL PT 30.7 H (10.1-12.7) SECONDS INR 2.6 H (0.9-1.3) APTT 32 (26-36) SECONDS Sodium 140 (137-145) mmol/L Potassium 4.3 (3.4-5.1) mmol/L Chloride 106 (98-107) mmol/L Carbon Dioxide 22 (22-32) mmol/L BUN 29 H (7-17) mg/dL Creatinine 1.54 H (0.52-1.04) mg/dL Estimated GFR 35 L (>60) mL/min BUN/Creatinine Ratio 18.8 (6-22) Glucose 97 (80-110) mg/dL Calcium 9.4 (8.4-10.2) mg/dL Total Bilirubin 0.6 (0.2-1.3) mg/dL AST 37 H (14-36) IU/L ALT 30 (<35) IU/L Alkaline Phosphatase 97 (38-126) U/L Total Creatine Kinase 38 (30-135) U/L CK-MB (CK-2) TNP CK-MB (CK-2) Rel Index TNP Troponin I 0.014 (0.01-0.034) ng/mL NT-Pro-B Natriuret Pep 2610 H (<450) pg/mL Total Protein 7.6 (6.3-8.2) g/dL Albumin 4.5 (3.5-5.0) g/dL Globulin 3.1 (1.7-4.1) g/dL Albumin/Globulin Ratio 1.5 (1.0-2.8) Lipase 52 (23-300) U/L Urine Dip Bedside Urine Glucose Negative Bedside Urine Bilirubin - Negative Bedside Urine Ketone - Negative Urine Specific [place] 1.01 Bedside Urine Occult Blood +/- Bedside Urine pH 6.0 Bedside Urine Protein - Negative Bedside Urine Urobilinogen - Negative Bedside Urine Nitrite - Negative Bedside Urine Leukocytes - Negative Esterase Imaging Data CT - cervical spine: Radiologist's Impression: [address] [address] [address] Scan Report Signed Patient: Christine Burger MR#: [id number] : 1945 Acct:[id number] Age/Sex: 76 / F Date of Service: 04/29/22 Loc: ED Accession Number: [id number] ?? Procedure: CT cervical spine wo con Ordering Provider: Krystin Figueroa D.O. PROCEDURE:? CT CERVICAL SPINE WO CON ? INDICATIONS:? fall, thinners ? TECHNIQUE:? Noncontrast 3 mm thick sections acquired from the skull base to the T4 level.? Sagittal and coronal reformats were then constructed.? For radiation dose reduction, the following was used:? automated exposure control, adjustment of mA and/or kV according to patient size.? ? COMPARISON:? [facility], CR, XR CHEST 1V, 04/29/2022, 17:36.? [facility], CR, XR HIP W PEL IF DONE LT 2V, 04/29/2022, 17:36.? [facility], CT, CT HEAD/BRAIN WO CON, 04/29/2022, 17:33.? [facility], CT, CT CERVICAL SPINE WO CON, 08/18/2018, 10:57. ? FINDINGS:? Image quality:? This examination is somewhat limited by quantum mottle artifact.? ? Bones:? No acute appearing fractures or dislocations.? At T3 and T4, there are mild anterior wedge deformity is seen, which are similar to 2019. Visualized superior ribs are intact.? ? Moderate generalized degenerative changes can be seen. ? Soft tissues:? Prevertebral soft tissues are normal in thickness.? No paravertebral hematomas.? No apical pneumothoraces.? Atherosclerotic calcification is noted.? ? ? IMPRESSION:? Negative for acute fracture. ? Stable mild T3 and T4 anterior wedge deformities. ? ? ? Dictated by: Danny Lou M.D. on 04/29/2022 at 17:26 ? ? Approved by: Danny Lou M.D. on 04/29/2022 at 17:28 CT scan - head: Radiologist's Impression: [place] [address] CT Scan Report Signed Patient: Christine Burger MR#: [id number] : 1945 Acct:[id number] Age/Sex: 76 / F Date of Service: 04/29/22 Loc: ED Accession Number: [id number] ?? Procedure: CT head/brain wo con Ordering Provider: Krystin Figueroa D.O. PROCEDURE:? CT HEAD/BRAIN WO CON ? INDICATIONS:? fall, hit head ? TECHNIQUE:? Noncontrast 4.5 mm thick angled axial sections acquired from the foramen magnum to the vertex, with coronal and sagittal reformats.? For radiation dose reduction, the following was used:? automated exposure control, adjustment of mA and/or kV according to patient size.? ? COMPARISON:? [facility], CT, CT HEAD/BRAIN WO CON, 08/18/2018, 10:57.? [facility], CR, XR CHEST 1V, 04/29/2022, 17:36.? [facility], CR, XR HIP W PEL IF DONE LT 2V, 04/29/2022, 17:36.? [facility], CT, CT CERVICAL SPINE WO CON, 04/29/2022, 17:33.? [facility], CT, CT HEAD/BRAIN WO CON, 09/03/2020, 16:28. ? FINDINGS:? Image quality:? Mild streak artifact can be seen through the skull base.? ? CSF spaces:? Basal cisterns are patent.? No extra-axial fluid collections.? The ventricles are symmetric in size and shape.? ? Brain:? No intracranial bleeds or masses.? There is cerebral volume loss for age, with resultant ventricular and sulcal prominence.? There are periventricular and deep white matter chronic small vessel ischemic changes.? There is intracranial internal carotid artery atherosclerosis.? ? Skull and face:? Soft tissue scalp hematoma can be seen on the left posteriorly and inferiorly.? No associated calvarial fracture can be seen.? Calvarium and visualized facial bones appear intact, without suspicious lesions.? ? Sinuses:? Visualized sinuses and mastoids are clear.? ? ? IMPRESSION:? Soft tissue scalp hematoma seen posteriorly and on the left.? No associated fracture is seen. ? No acute intracranial hemorrhage is seen.? ? No acute intracranial process is seen.? ? ? Dictated by: Danny Lou M.D. on 04/29/2022 at 17:25 ? ? Approved by: Danny Lou M.D. on 04/29/2022 at 17:26 Chest x-ray: Radiologist's Impression: [place] [address] XRay Report Signed Patient: Christine Burger MR#: [id number] : 1945 Acct:[id number] Age/Sex: 76 / F Date of Service: 04/29/22 Loc: ED Accession Number: [id number] ?? Procedure: XR chest 1V Ordering Provider: Krystin Figueroa D.O. PROCEDURE:? XR CHEST 1V ? INDICATIONS:? fall, hit head, dizzy ? TECHNIQUE:? One view of the chest was acquired.? ? COMPARISON:? [facility], CR, XR HIP W PEL IF DONE LT 2V, 04/29/2022, 17:36.? [facility], CT, CT HEAD/BRAIN WO CON, 04/29/2022, 17:33.? [facility], CT, CT CERVICAL SPINE WO CON, 04/29/2022, 17:33.? [facility], CR, XR CHEST 1V, 03/08/2022, 17:44. ? FINDINGS:? ? Surgical changes and devices:? Cholecystectomy clips are seen.? ? Lungs and pleura:? On this supine examination, no large pneumothorax or large pleural effusions are seen. No focal areas of lung consolidation are seen. Low lung volumes are noted. This causes a crowded appearance to the lung markings and limits evaluation.? ? Mediastinum:? Mediastinal contours appear normal.? Heart size is normal.? Atherosclerotic calcification of the aortic arch is noted.? ? Bones and chest wall:? No suspicious bony lesions.? Age-appropriate bony degenerative changes are seen.? Overlying soft tissues appear unremarkable.? IMPRESSION:? Limited portable chest study, without an acute abnormality seen. ? Postoperative and degenerative changes are seen.? ? ? Dictated by: Danny Lou M.D. on 04/29/2022 at 17:29 ? ? Approved by: Danny Lou M.D. on 04/29/2022 at 17:30?? Extremity x-ray #1: Radiologist's Impression: [place] [address] XRay Report Signed Patient: Christine Burger MR#: [id number] : 1945 Acct:[id number] Age/Sex: 76 / F Date of Service: 04/29/22 Loc: ED Accession Number: [id number] ?? Procedure: XR hip w pel if done LT 2V Ordering Provider: Krystin Figueroa D.O. PROCEDURE:? XR HIP W PEL IF DONE LT 2V ? INDICATIONS:? left hip, fall ? TECHNIQUE:? AP pelvis with lateral view(s) of the left hip(s).? ? COMPARISON:? [facility], CT, CT PEL WO CON, 12/22/2021, 15:34.? [facility], CR, XR CHEST 1V, 04/29/2022, 17:36.? [facility], CT, CT HEAD/BRAIN WO CON, 04/29/2022, 17:33.? [facility], CT, CT CERVICAL SPINE WO CON, 04/29/2022, 17:33.? [facility], CR, XR HIP W PEL IF DONE LT 2V, 11/22/2019, 15:02. ? FINDINGS:? ? Bones:? No acute appearing fractures or dislocations.? There is stable irregularity seen involving the left pubis, where there is a chronic fracture present.? Pelvic ring appears intact.? No suspicious bony lesions.? ? Unremarkable right hip arthroplasty hardware is seen. ? Age-appropriate lower lumbar spine degenerative changes are noted. ? Soft tissues:? The visualized bowel gas pattern is normal.? No suspicious soft tissue calcifications.? ? ? IMPRESSION:? No selma acute fracture can be seen on these plain films. ? If there is point tenderness (or other clinical suspicion for a fracture not seen on these images) then a dedicated CT could be considered for further evaluation, if clinically appropriate. ? Chronic fracture of the left pubis. ? Right hip arthroplasty hardware is seen. ? Dictated by: Danny Lou M.D. on 04/29/2022 at 17:30 ? ? Approved by: Danny Lou M.D. on 04/29/2022 at 17:31 ECG Data Attestation: I personally reviewed and interpreted this ECG as follows: Interpretation: Sinus rhythm Ventricular rate 94 Frequent PACs Normal QRS Normal QTC No ST T wave changes MDM Narrative Medical decision making narrative: Patient's CT scans are negative for any acute pathology. Her EKG is unremarkable except for frequent PACs. She ambulated in the emergency department with a walker which she uses at baseline without issues. She has had issues with dizziness in the past. We discussed the possibility of her seeing Ear Nose and Throat she will talk with her primary doctor regarding this. She is no focal neurologic symptoms that make me think this was a TIA/CVA today. Will discharge patient home with . She was given return precautions and follow-up instructions. She expressed understanding and agreement. Discharge Plan Departure Patient Disposition: Home Clinical Impression: Hematoma of scalp, Fall Instructions: How to Prevent Falls Activity Restrictions/Additional Instructions: Continue to take all of your medications as directed. I recommend that you talk with your primary doctor about follow-up. Return to the emergency department for any new symptoms. Prescriptions: No Action simvastatin [Zocor] 20 MG tablet 20 mg PO HS Qty: 0 warfarin 1 mg tablet 1 mg PO DAILY Rx Instructions: takes 1mg all days except monday takes 1.5mg cholecalciferol (vitamin D3) 1,000 unit capsule 1,000 unit PO DAILY polyethylene glycol 3350 17 gram powder in packet 17 gram PO DAILY ondansetron HCl [Zofran] 4 mg tablet 4 mg PO TID PRN (Reason: nausea) prednisone 5 mg tablet 5 mg PO DAILY acetaminophen [Tylenol Extra Strength] 500 mg tablet 500 mg PO Q6H PRN (Reason: Pain (Scale Score 4-6)) omeprazole 20 mg capsule,delayed release(DR/EC) 20 mg PO BID ranitidine HCl 150 mg capsule 300 mg PO DAILY PRN (Reason: Allergy Symptoms) levothyroxine 100 mcg capsule 100 mcg PO DAILY topiramate 25 mg capsule,extended release 24hr 50 mg PO BEDTIME Referrals: Romie Dennis MD [Primary Care Provider] - Stand Alone Forms: Patient Portal/API
== END 2022-04-29 20:11 | disposition home or self-care (01) ==
PROVIDERS: Emergency Medicine; Emergency Provider Emergency Medicine; PCP Internal Medicine
DX: S00.03XA Contusion of scalp, initial encounter (principal); M25.552 Pain in left hip; R42 Dizziness and giddiness; W18.30XA Fall on same level, unspecified, initial encounter; Z79.01 Long term (current) use of anticoagulants; Z79.899 Other long term (current) drug therapy
CPT/HCPCS: 36415; 70450; 71045; 72125; 73502; 80053; 81003; 82550; 83690; 83880; 84484; 85025; 85610; 85730; 93005; 99283; 99284

== ENCOUNTER → 2022-05-13 15:17 | Outpatient (CLI) | payer MEDICARE, OTHER, SELFPAY ==
[2022-03-08 22:00] VITALS: BMI 27.5
[2022-05-13 16:06] LABS: BUN Creatinine Ratio 19.5 (6-22); Blood Urea Nitrogen 36 mg/dL (7-17); Calcium 9.1 mg/dL (8.4-10.2); Carbon Dioxide 23 mmol/L (22-32); Chloride 109 mmol/L (98-107); Estimated Glomerular Filt Rate 28 mL/min (>60); Glucose 114 mg/dL (80-110); HEMOLYSIS < 15 (0-50); Potassium 4.1 mmol/L (3.4-5.1); Sodium 141 mmol/L (137-145)
[2022-05-13 16:12] LABS: NT-proBNP (BNP-Adult 18+) 1920 pg/mL (<450)
== END ==
PROVIDERS: PCP Internal Medicine; Referring Provider Student in an Organized Health Care Education/Training Program; Visit Provider Student in an Organized Health Care Education/Training Program
DX: I50.32 Chronic diastolic (congestive) heart failure (principal); N05.9 Unspecified nephritic syndrome with unspecified morphologic changes
CPT/HCPCS: 36415; 80048; 83880

== ENCOUNTER → 2022-06-10 10:32 | Outpatient (CLI) | payer MEDICARE, OTHER, SELFPAY ==
[2022-03-08 22:00] VITALS: BMI 27.5
[2022-06-10 11:46] LABS: INR 4.3 (0.9-1.3); Prothrombin Time 49.8 SECONDS (10.1-12.7)
[2022-06-10 12:06] LABS: Erythrocyte Sedimentation Rate 18 MM/HR (0-20)
[2022-06-10 12:09] LABS: Hematocrit 40.7 % (36-46); Hemoglobin 13.1 g/dL (12.0-16.0); Mean Corpuscular HGB Conc 32.2 % (30-36); Mean Corpuscular Hemoglobin 30.6 PG (26-34); Mean Corpuscular Volume 95.1 fL (80-100); Platelet Count 200 X10^3/uL (150-400); Red Blood Cell Count 4.28 X10^6/uL (4.0-5.2); Red Cell Distribution Width 15.6 % (11.6-14.8); White Blood Cell Count 10.9 X10^3/uL (4.5-11.0)
[2022-06-10 12:10] LABS: Alanine Aminotransferase 23 IU/L (<35); Albumin 3.9 g/dL (3.5-5.0); Albumin Globulin Ratio 1.6 (1.0-2.8); Alkaline Phosphatase 340 U/L (38-126); Aspartate Aminotransferase 29 IU/L (14-36); BUN Creatinine Ratio 19.2 (6-22); Bilirubin Total 0.5 mg/dL (0.2-1.3); Blood Urea Nitrogen 28 mg/dL (7-17); C-Reactive Protein Quant 0.5 mg/dL (<1.0); Calcium 8.9 mg/dL (8.4-10.2); Carbon Dioxide 25 mmol/L (22-32); Chloride 111 mmol/L (98-107); Cholesterol 143 mg/dL (140-199); Estimated Glomerular Filt Rate 37 mL/min (>60); Globulin 2.4 g/dL (1.7-4.1); Glucose 81 mg/dL (80-110); HDL Cholesterol 60 mg/dL (40-60); HEMOLYSIS < 15 (0-50); LDL Cholesterol Calculated 50 mg/dL (<100); Potassium 3.7 mmol/L (3.4-5.1); Sodium 144 mmol/L (137-145); Total Protein 6.3 g/dL (6.3-8.2); Triglycerides 163 mg/dL (35-150)
[2022-06-10 12:31] LABS: TSH w/ Reflex to FT4 1.64 uIU/mL (0.47-4.68)
[2022-06-14 13:36] LABS: Calcium 9.3 mg/dL (8.7-10.3); Parathyroid Hormone, Intact 75 pg/mL (15-65)
== END ==
PROVIDERS: PCP Internal Medicine; Referring Provider Internal Medicine; Visit Provider Internal Medicine
DX: E78.2 Mixed hyperlipidemia (principal); Z86.718 Personal history of other venous thrombosis and embolism; M31.7 Microscopic polyangiitis; N18.32 Chronic kidney disease, stage 3b
CPT/HCPCS: 36415; 80053; 80061; 82310; 83970; 84443; 85027; 85610; 85651; 86140

== ENCOUNTER 2022-07-08 15:51 | Inpatient (IN) | payer MEDICARE, OTHER, SELFPAY ==
[2022-03-08 22:00] VITALS: BMI 27.5
[2022-07-08] VITALS (18 sets, daily range): BP systolic 143–202; BP diastolic 75–146; PULSE 55–101; RESP 19–40; TEMP 37.1; O2SAT 91–98; BMI 28.9
--- NOTE | 2022-07-08 16:10 | ED.BACK ---
HPI - Back Pain/Injury <Minnie Lizarraga, [facility] - Last Filed: 07/13/22 13:57> General Chief Complaint: Back Pain/Injury Stated Complaint: Back pain Time Seen by Provider: 07/08/22 16:02 History of Present Illness HPI Narrative: This is a 76-year-old female presents to the emergency department via EMS for worsening low back pain she states is secondary to her spinal stenosis. She has past medical history of hypertension, hyperlipidemia, osteoarthritis, interstitial lung disease, stage IIIB CKD, chronic adrenal insufficiency, history of DVT and is anticoagulated on warfarin for this, retrolisthesis at L5-S1 and L3-L4, osteoporosis, prior lumbar laminectomy and right hip arthroplasty. She denies sciatica symptoms, denies any new recent changes but states that she is been having muscle spasms which have been grabbing her and causing pain beyond tolerance. She has not had any fall, is atraumatic, states that she has been having worsening pain that came on all of a sudden after movement but it is where she has historical pain in her low back. She denies a fall, denies head injury, states that she has swollen lower extremities which have been this way for a very long time. She denies fever chills, rash. Denies urinary symptoms. Related Data Home Medications Medication Instructions Recorded Confirmed acetaminophen 500 mg tablet 500 mg PO Q6H PRN Pain (Scale 10/09/17 07/12/22 (Tylenol Extra Strength) Score 4-6) levothyroxine 100 mcg capsule 100 mcg PO DAILY 10/09/17 07/12/22 omeprazole 20 mg capsule,delayed 20 mg PO DAILY 10/09/17 07/12/22 release ondansetron HCl 4 mg tablet 4 mg PO TID PRN nausea 10/09/17 07/12/22 (Zofran) polyethylene glycol 3350 17 gram 17 gram PO DAILY PRN Constipation 10/09/17 07/12/22 oral powder packet prednisone 5 mg tablet 5 mg PO DAILY 10/09/17 07/12/22 topiramate 25 mg capsule,extended 50 mg PO BEDTIME 10/09/17 07/12/22 release 24 hr digestive enzymes 1 cap PO DAILY PRN Abdominal 06/10/22 07/12/22 Discomfort potassium chloride 20 mEq 20 meq PO DAILY 06/10/22 07/12/22 tablet,extended release(part/cryst) sertraline 100 mg tablet 100 mg PO DAILY 06/10/22 07/12/22 simvastatin 10 mg tablet 10 mg PO DAILY 06/10/22 07/12/22 cholecalciferol (vitamin D3) 125 125 mcg PO DAILY 06/15/22 07/12/22 mcg (5,000 unit) capsule Previous Rx's Medication Instructions Recorded warfarin 1 mg tablet 1 mg PO DAILY #120 tabs 06/10/22 lidocaine 5 % topical patch 1 patch topical DAILY PRN back 07/08/22 (Lidoderm) pain #30 ea methocarbamol 500 mg tablet 500 mg PO BID PRN muscle spasm #20 07/08/22 tabs calcitonin (salmon) 200 1 spray intranasal DAILY 30 days 07/12/22 unit/actuation nasal spray #3.7 mL loperamide 2 mg capsule 2 mg PO DAILY PRN Diarrhea 14 days 07/12/22 #0 caps oxycodone-acetaminophen 5 mg-325 1 tab PO QID PRN Back Pain 7 days 07/12/22 mg tablet #20 tabs sennosides 8.6 mg tablet (senna) 17.2 mg PO BEDTIME 14 days #28 tabs 07/12/22 Allergies Allergy/AdvReac Type Severity Reaction Status Date / Time amoxicillin [AMOXICILLIN] Allergy Severe rash and Verified 06/10/22 09:13 diarrhea oxybutynin Allergy Severe tongue Verified 06/10/22 09:13 swells Sulfa (Sulfonamide Allergy Severe fever and Verified 06/10/22 09:13 Antibiotics) rash [SULFA (SULFONAMIDE ANTIBIOTICS)] NSAIDS (Non-Steroidal Allergy Unknown Verified 06/10/22 09:13 Anti-Inflamma [NSAIDS (NON-STEROIDAL ANTI-INFLAMMA] cephalexin Allergy rash Verified 06/10/22 09:13 codeine [CODEINE] AdvReac Mild headache Verified 06/10/22 09:13 duloxetine [From CYMBALTA] AdvReac Mild vomiting Verified 06/10/22 09:13 morphine [MORPHINE] AdvReac Mild vomiting Verified 06/10/22 09:13 nitrofurantoin AdvReac Mild vomiting Verified 06/10/22 09:13 [From MACROBID] carisoprodol AdvReac Verified 06/10/22 09:13 piroxicam [From Feldene] AdvReac Verified 06/10/22 09:13 tolterodine AdvReac Verified 06/10/22 09:13 Review of Systems <GURVINDER Santamaria - Last Filed: 07/13/22 13:57> Review of Systems ROS Unobtainable: All systems reviewed & are unremarkable except as noted in HPI and below Patient History <GURVINDER Santamaria - Last Filed: 07/13/22 13:57> Medical History (Reviewed 07/09/22 @ 01:27 by Beverley Pendleton [facility]) Atypical migraine Bilateral lower extremity edema Chicken pox (~1951) Chronic adrenal insufficiency Chronic anticoagulation Chronic back pain (~1964) Chronic diarrhea Chronic kidney disease Fecal incontinence (~2021) Headache (~2021) Hearing loss (~2011) History of DVT (deep vein thrombosis) History of kidney disease (~2002) Hyperlipidemia Hypertension Interstitial lung disease Irritable bowel syndrome (~2012) Measles (~1951) Mixed hyperlipidemia Mumps (~1951) 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 Stage 3b chronic kidney disease (CKD) Uses walker Venous (peripheral) insufficiency Surgical History Anesthesia History of back surgery (~2012) History of throat surgery (~1974) Family History Father Cancer History of heart disease Mother Hypertension Social History (Reviewed 07/09/22 @ 01:27 by Beverley Pendleton [facility]) household members: spouse Smoking Status: Never smoker alcohol intake: current Smoking Status: Never smoker alcohol intake frequency: 0-2 drinks per day Substance Use Type: does not use Exam <GURVINDER Santamaria - Last Filed: 07/13/22 13:57> Narrative Exam Narrative: Reviewed vitals signs and nursing notes. General: Pleasant, sitting upright, in no acute distress, well groomed, afebrile HEENT: symmetrical facial expressions, moist mucous membranes, neck is supple CV: regular rate and rhythm, warm extremities, bilateral lower extremities are quite edematous, mild discoloration, without erythema, calf tenderness, rash, patient states this is no changed when compared to her baseline Respiratory: Breath sounds diminished in the bases, mild tachypnea without hypoxia or increased work of breathing, without crackles or other abnormal breath sounds GI: abdomen soft, nondistended, without CVA tenderness bilaterally. MSK: moves all extremities, generalized weakness, normal tone, attempts at straight leg lift exacerbates low back pain bilaterally, bilateral lower extremities are grossly edematous are soft to palpation without pitting edema Skin: brisk capillary refill, without rash or wound Neuro: normal speech and cognition, A&O x3 Initial Vital Signs Initial Vital Signs: Vital Signs Temperature 98.7 F 07/08/22 16:00 Pulse Rate 58 L 07/08/22 16:00 Respiratory Rate 20 07/08/22 16:00 Blood Pressure 143/82 H 07/08/22 16:00 Pulse Oximetry 93 07/08/22 16:00 Oxygen Delivery Method Room Air 07/08/22 16:00 <Krystin Figueroa DO - Last Filed: 07/09/22 08:31> Initial Vital Signs Initial Vital Signs: Vital Signs Temperature 98.7 F 07/08/22 16:00 Pulse Rate 58 L 07/08/22 16:00 Respiratory Rate 20 07/08/22 16:00 Blood Pressure 143/82 H 07/08/22 16:00 Pulse Oximetry 93 07/08/22 16:00 Oxygen Delivery Method Room Air 07/08/22 16:00 <Jean Claude Coker DO - Last Filed: 07/08/22 22:29> Initial Vital Signs Initial Vital Signs: Vital Signs Temperature 98.7 F 07/08/22 16:00 Pulse Rate 58 L 07/08/22 16:00 Respiratory Rate 20 07/08/22 16:00 Blood Pressure 143/82 H 07/08/22 16:00 Pulse Oximetry 93 07/08/22 16:00 Oxygen Delivery Method Room Air 07/08/22 16:00 Course <GURVINDER Santamaria - Last Filed: 07/13/22 13:57> Orders Ordered: Discontinued Medications Acetaminophen (Acetaminophen 325 Mg Tablet) 650 mg PO Q6H PRN PRN Reason: Fever/Mild Pain (1-3) Last Admin: 07/11/22 06:08 Dose: 650 mg Documented By: JOSE D Hydrocodone Bitart/Acetaminophen (Hydrocodone/Acet 5/325 Tablet) 1 tab PO NOW ONE Stop: 07/08/22 16:09 Last Admin: 07/08/22 18:03 Dose: Not Given Documented By: LINDA Atorvastatin Calcium (Atorvastatin 20 Mg Tablet) 20 mg PO BEDTIME [facility] Atorvastatin Calcium (Atorvastatin 20 Mg Tablet) 10 mg PO BEDTIME [facility] Last Admin: 07/11/22 21:17 Dose: 10 mg Documented By: Admin: 07/10/22 21:02 Dose: 10 mg Documented By: Admin: 07/09/22 21:19 Dose: 10 mg Documented By: VELASQUEZ Calcitonin Villalba (Calcitonin,Villalba, Nasal [place]) 1 sprays NASAL DAILY [facility] Last Admin: 07/12/22 08:11 Dose: 1 sprays Documented By: Admin: 07/11/22 08:26 Dose: 1 sprays Documented By: Admin: 07/10/22 09:00 Dose: Not Given Documented By: DREA Carvedilol (Carvedilol 3.125 Mg Tablet) 3.125 mg PO DAILY [facility] Last Admin: 07/09/22 08:56 Dose: 3.125 mg Documented By: JEAN CARLOS Carvedilol (Carvedilol 3.125 Mg Tablet) 3.125 mg PO NOW ONE Stop: 07/09/22 01:57 Last Admin: 07/09/22 02:25 Dose: 3.125 mg Documented By: RITESH Clonazepam (Clonazepam 0.5 Mg Tablet) 0.5 mg PO NOW ONE Stop: 07/08/22 22:23 Last Admin: 07/08/22 22:44 Dose: 0.5 mg Documented By: RITESH Enoxaparin Sodium (Enoxaparin 30 Mg/0.3 Ml Syringe) 30 mg SUBCUT DAILY [facility] Last Admin: 07/09/22 08:57 Dose: 30 mg Documented By: JEAN CARLOS Furosemide (Furosemide 20 Mg/2 Ml Vial) 20 mg IV 0800,1700 [facility] Last Admin: 07/09/22 08:56 Dose: 20 mg Documented By: JEAN CARLOS Furosemide 60 mg/ Sodium (Chloride) 56 mls @ 112 mls/hr IV NOW ONE Stop: 07/08/22 17:27 Last Infusion: 07/08/22 18:21 Dose: 0 mls/hr Documented By: Admin: 07/08/22 17:35 Dose: 112 mls/hr Documented By: LINDA Levothyroxine Sodium (Levothyroxine 100 Mcg Tablet) 100 mcg PO DAILY@0600 [facility] Levothyroxine Sodium (Levothyroxine 100 Mcg Tablet) 100 mcg PO DAILY@0600 [facility] Last Admin: 07/12/22 05:09 Dose: 100 mcg Documented By: Admin: 07/11/22 06:06 Dose: 100 mcg Documented By: JOSE D Admin: 07/10/22 06:02 Dose: 100 mcg Documented By: VELASQUEZ Lidocaine (Lidocaine Patch 1 Each Adh..Patch) 1 each TOP NOW ONE Stop: 07/08/22 16:09 Last Admin: 07/08/22 16:45 Dose: 1 each Documented By: LINDA Lidocaine (Lidocaine Patch 1 Each Adh..Patch) 1 each TOP DAILY [facility] Last Admin: 07/12/22 08:11 Dose: 1 each Documented By: Admin: 07/11/22 08:04 Dose: 1 each Documented By: Admin: 07/10/22 08:33 Dose: 1 each Documented By: Admin: 07/09/22 08:58 Dose: 1 each Documented By: JEAN CARLOS Lidocaine (Remove Lidocaine Patch) 1 each TOP BEDTIME [facility] Last Admin: 07/11/22 21:17 Dose: Not Given Documented By: Admin: 07/10/22 21:03 Dose: 1 each Documented By: JOSE D Admin: 07/09/22 21:21 Dose: 1 each Documented By: VELASQUEZ Methocarbamol (Methocarbamol 500 Mg Tablet) 500 mg PO NOW ONE Stop: 07/08/22 16:09 Last Admin: 07/08/22 16:45 Dose: 500 mg Documented By: LINDA Methylprednisolone (Methylprednisolone 40 Mg/Ml Vial) 40 mg IV NOW ONE Stop: 07/08/22 22:24 Last Admin: 07/08/22 22:44 Dose: 40 mg Documented By: RITESH Methylprednisolone (Methylprednisolone 40 Mg/Ml Vial) 20 mg IV BID [facility] Last Admin: 07/09/22 08:57 Dose: 20 mg Documented By: JEAN CARLOS Metoprolol Tartrate (Metoprolol Tartrate 5 Mg/5 Ml Inj) 5 mg IV Q15M PRN PRN Reason: Hypertension Stop: 07/09/22 02:16 Naloxone HCl (Naloxone 0.4 Mg/Ml Vial) 0.2 mg IV Q2MIN PRN PRN Reason: Opiate Reversal Ondansetron HCl (Ondansetron 4 Mg/2 Ml Inj) 4 mg IV Q4HR PRN PRN Reason: Nausea And Vomiting Oxycodone/Acetaminophen (Oxycodone/Acetaminophen 5/325 Tablet) 1 tab PO NOW ONE Stop: 07/08/22 16:17 Last Admin: 07/08/22 16:47 Dose: 1 tab Documented By: LINDA Oxycodone/Acetaminophen (Oxycodone/Acetaminophen 5/325 Tablet) 1 tab PO Q6HR PRN PRN Reason: Pain, Moderate (4-10 Last Admin: 07/09/22 12:58 Dose: 1 tab Documented By: JEAN CARLOS Oxycodone/Acetaminophen (Oxycodone/Acetaminophen 5/325 Tablet) 1 tab PO Q4HR PRN PRN Reason: Pain, Moderate (4-6) Last Admin: 07/12/22 00:43 Dose: 1 tab Documented By: Admin: 07/11/22 16:39 Dose: 1 tab Documented By: Admin: 07/11/22 10:35 Dose: 1 tab Documented By: Admin: 07/10/22 19:36 Dose: 1 tab Documented By: Admin: 07/09/22 17:54 Dose: 1 tab Documented By: PATRICIA Polyethylene Glycol (Polyethylene Glycol 3350 17 Gm Powd.Pack) 17 gm PO DAILY [facility] Last Admin: 07/12/22 08:11 Dose: 17 gm Documented By: Admin: 07/11/22 08:04 Dose: 17 gm Documented By: Admin: 07/10/22 08:33 Dose: Not Given Documented By: DREA Potassium Chloride (Potassium Chloride 20 Meq Tab) 20 meq PO DAILYCC [place] Potassium Chloride (Potassium Chloride 20 Meq Tab) 20 meq PO DAILYCC [facility] Last Admin: 07/12/22 08:10 Dose: 20 meq Documented By: Admin: 07/11/22 08:04 Dose: 20 meq Documented By: Admin: 07/10/22 08:33 Dose: 20 meq Documented By: DREA Prednisone (Prednisone 20 Mg Tablet) 20 mg PO NOW ONE Stop: 07/08/22 16:13 Last Admin: 07/08/22 16:46 Dose: 20 mg Documented By: LINDA Prednisone (Prednisone 5 Mg Tablet) 5 mg PO DAILY [facility] Last Admin: 07/12/22 08:11 Dose: 5 mg Documented By: Admin: 07/11/22 08:04 Dose: 5 mg Documented By: Admin: 07/10/22 08:33 Dose: 5 mg Documented By: DREA Sennosides (Sennosides 8.6 Mg Tablet) 17.2 mg PO BEDTIME [facility] Last Admin: 07/11/22 21:16 Dose: 17.2 mg Documented By: Admin: 07/10/22 21:02 Dose: 17.2 mg Documented By: JOSE D Admin: 07/09/22 21:17 Dose: Not Given Documented By: Admin: 07/09/22 00:43 Dose: Not Given Documented By: RITESH Sertraline HCl (Sertraline 50 Mg Tablet) 100 mg PO BEDTIME [facility] Sertraline HCl (Sertraline 50 Mg Tablet) 100 mg PO DAILY [facility] Last Admin: 07/12/22 08:11 Dose: 100 mg Documented By: Admin: 07/11/22 08:04 Dose: 100 mg Documented By: Admin: 07/10/22 08:33 Dose: 100 mg Documented By: DREA Topiramate (Topiramate 25 Mg Tablet) 25 mg PO BEDTIME [facility] Topiramate (Topiramate 25 Mg Tablet) 50 mg PO BEDTIME [facility] Last Admin: 07/11/22 21:16 Dose: 50 mg Documented By: Admin: 07/10/22 21:03 Dose: 50 mg Documented By: JOSE D Admin: 07/09/22 21:20 Dose: 50 mg Documented By: VELASQUEZ Warfarin Sodium (Warfarin 1 Mg Tablet) 1 mg PO DAILY@1700 [facility] Last Admin: 07/09/22 17:54 Dose: 1 mg Documented By: PATRICIA Vital Signs Vital signs: Vital Signs - 8 hr 07/08/22 16:00 07/08/22 17:17 07/08/22 17:19 Temperature 98.7 F Pulse Rate 58 L 69 Respiratory Rate 20 Blood Pressure 143/82 H 150/89 H Pulse Oximetry 93 98 Oxygen Delivery Method Room Air 07/08/22 17:19 07/08/22 17:30 07/08/22 17:30 Temperature Pulse Rate 55 L 59 L Respiratory Rate Blood Pressure 147/79 H Pulse Oximetry 93 95 Oxygen Delivery Method 07/08/22 18:00 07/08/22 18:01 07/08/22 18:01 Temperature Pulse Rate 67 67 Respiratory Rate Blood Pressure 185/75 H Pulse Oximetry 95 95 Oxygen Delivery Method <Krystin Figueroa, DO - Last Filed: 07/09/22 08:31> Orders Ordered: Discontinued Medications Acetaminophen (Acetaminophen 325 Mg Tablet) 650 mg PO Q6H PRN PRN Reason: Fever/Mild Pain (1-3) Last Admin: 07/11/22 06:08 Dose: 650 mg Documented By: JOSE D Hydrocodone Bitart/Acetaminophen (Hydrocodone/Acet 5/325 Tablet) 1 tab PO NOW ONE Stop: 07/08/22 16:09 Last Admin: 07/08/22 18:03 Dose: Not Given Documented By: LINDA Atorvastatin Calcium (Atorvastatin 20 Mg Tablet) 20 mg PO BEDTIME [facility] Atorvastatin Calcium (Atorvastatin 20 Mg Tablet) 10 mg PO BEDTIME [facility] Last Admin: 07/11/22 21:17 Dose: 10 mg Documented By: Admin: 07/10/22 21:02 Dose: 10 mg Documented By: JOSE D Admin: 07/09/22 21:19 Dose: 10 mg Documented By: VELASQUEZ Calcitonin Villalba (Calcitonin,Villalba, Nasal [place]) 1 sprays NASAL DAILY [facility] Last Admin: 07/12/22 08:11 Dose: 1 sprays Documented By: Admin: 07/11/22 08:26 Dose: 1 sprays Documented By: Admin: 07/10/22 09:00 Dose: Not Given Documented By: DREA Carvedilol (Carvedilol 3.125 Mg Tablet) 3.125 mg PO DAILY [facility] Last Admin: 07/09/22 08:56 Dose: 3.125 mg Documented By: JEAN CARLOS Carvedilol (Carvedilol 3.125 Mg Tablet) 3.125 mg PO NOW ONE Stop: 07/09/22 01:57 Last Admin: 07/09/22 02:25 Dose: 3.125 mg Documented By: RITESH Clonazepam (Clonazepam 0.5 Mg Tablet) 0.5 mg PO NOW ONE Stop: 07/08/22 22:23 Last Admin: 07/08/22 22:44 Dose: 0.5 mg Documented By: RITESH Enoxaparin Sodium (Enoxaparin 30 Mg/0.3 Ml Syringe) 30 mg SUBCUT DAILY [facility] Last Admin: 07/09/22 08:57 Dose: 30 mg Documented By: JEAN CARLOS Furosemide (Furosemide 20 Mg/2 Ml Vial) 20 mg IV 0800,1700 [facility] Last Admin: 07/09/22 08:56 Dose: 20 mg Documented By: JEAN CARLOS Furosemide 60 mg/ Sodium (Chloride) 56 mls @ 112 mls/hr IV NOW ONE Stop: 07/08/22 17:27 Last Infusion: 07/08/22 18:21 Dose: 0 mls/hr Documented By: Admin: 07/08/22 17:35 Dose: 112 mls/hr Documented By: LINDA Levothyroxine Sodium (Levothyroxine 100 Mcg Tablet) 100 mcg PO DAILY@0600 [facility] Levothyroxine Sodium (Levothyroxine 100 Mcg Tablet) 100 mcg PO DAILY@0600 [facility] Last Admin: 07/12/22 05:09 Dose: 100 mcg Documented By: Admin: 07/11/22 06:06 Dose: 100 mcg Documented By: JOSE D Admin: 07/10/22 06:02 Dose: 100 mcg Documented By: VELASQUEZ Lidocaine (Lidocaine Patch 1 Each Adh..Patch) 1 each TOP NOW ONE Stop: 07/08/22 16:09 Last Admin: 07/08/22 16:45 Dose: 1 each Documented By: LINDA Lidocaine (Lidocaine Patch 1 Each Adh..Patch) 1 each TOP DAILY [facility] Last Admin: 07/12/22 08:11 Dose: 1 each Documented By: Admin: 07/11/22 08:04 Dose: 1 each Documented By: Admin: 07/10/22 08:33 Dose: 1 each Documented By: Admin: 07/09/22 08:58 Dose: 1 each Documented By: JEAN CARLOS Lidocaine (Remove Lidocaine Patch) 1 each TOP BEDTIME [facility] Last Admin: 07/11/22 21:17 Dose: Not Given Documented By: Admin: 07/10/22 21:03 Dose: 1 each Documented By: JOSE D Admin: 07/09/22 21:21 Dose: 1 each Documented By: VELASQUEZ Methocarbamol (Methocarbamol 500 Mg Tablet) 500 mg PO NOW ONE Stop: 07/08/22 16:09 Last Admin: 07/08/22 16:45 Dose: 500 mg Documented By: LINDA Methylprednisolone (Methylprednisolone 40 Mg/Ml Vial) 40 mg IV NOW ONE Stop: 07/08/22 22:24 Last Admin: 07/08/22 22:44 Dose: 40 mg Documented By: RITESH Methylprednisolone (Methylprednisolone 40 Mg/Ml Vial) 20 mg IV BID [facility] Last Admin: 07/09/22 08:57 Dose: 20 mg Documented By: JEAN CARLOS Metoprolol Tartrate (Metoprolol Tartrate 5 Mg/5 Ml Inj) 5 mg IV Q15M PRN PRN Reason: Hypertension Stop: 07/09/22 02:16 Naloxone HCl (Naloxone 0.4 Mg/Ml Vial) 0.2 mg IV Q2MIN PRN PRN Reason: Opiate Reversal Ondansetron HCl (Ondansetron 4 Mg/2 Ml Inj) 4 mg IV Q4HR PRN PRN Reason: Nausea And Vomiting Oxycodone/Acetaminophen (Oxycodone/Acetaminophen 5/325 Tablet) 1 tab PO NOW ONE Stop: 07/08/22 16:17 Last Admin: 07/08/22 16:47 Dose: 1 tab Documented By: LINDA Oxycodone/Acetaminophen (Oxycodone/Acetaminophen 5/325 Tablet) 1 tab PO Q6HR PRN PRN Reason: Pain, Moderate (4-10 Last Admin: 07/09/22 12:58 Dose: 1 tab Documented By: JEAN CARLOS Oxycodone/Acetaminophen (Oxycodone/Acetaminophen 5/325 Tablet) 1 tab PO Q4HR PRN PRN Reason: Pain, Moderate (4-6) Last Admin: 07/12/22 00:43 Dose: 1 tab Documented By: Admin: 07/11/22 16:39 Dose: 1 tab Documented By: Admin: 07/11/22 10:35 Dose: 1 tab Documented By: Admin: 07/10/22 19:36 Dose: 1 tab Documented By: Admin: 07/09/22 17:54 Dose: 1 tab Documented By: PATRICIA Polyethylene Glycol (Polyethylene Glycol 3350 17 Gm Powd.Pack) 17 gm PO DAILY [facility] Last Admin: 07/12/22 08:11 Dose: 17 gm Documented By: Admin: 07/11/22 08:04 Dose: 17 gm Documented By: Admin: 07/10/22 08:33 Dose: Not Given Documented By: DREA Potassium Chloride (Potassium Chloride 20 Meq Tab) 20 meq PO DAILYCC [facility] Potassium Chloride (Potassium Chloride 20 Meq Tab) 20 meq PO DAILYCC [facility] Last Admin: 07/12/22 08:10 Dose: 20 meq Documented By: Admin: 07/11/22 08:04 Dose: 20 meq Documented By: Admin: 07/10/22 08:33 Dose: 20 meq Documented By: DREA Prednisone (Prednisone 20 Mg Tablet) 20 mg PO NOW ONE Stop: 07/08/22 16:13 Last Admin: 07/08/22 16:46 Dose: 20 mg Documented By: LINDA Prednisone (Prednisone 5 Mg Tablet) 5 mg PO DAILY [facility] Last Admin: 07/12/22 08:11 Dose: 5 mg Documented By: Admin: 07/11/22 08:04 Dose: 5 mg Documented By: Admin: 07/10/22 08:33 Dose: 5 mg Documented By: DREA Sennosides (Sennosides 8.6 Mg Tablet) 17.2 mg PO BEDTIME [facility] Last Admin: 07/11/22 21:16 Dose: 17.2 mg Documented By: Admin: 07/10/22 21:02 Dose: 17.2 mg Documented By: JOSE D Admin: 07/09/22 21:17 Dose: Not Given Documented By: Admin: 07/09/22 00:43 Dose: Not Given Documented By: RITESH Sertraline HCl (Sertraline 50 Mg Tablet) 100 mg PO BEDTIME [facility] Sertraline HCl (Sertraline 50 Mg Tablet) 100 mg PO DAILY [facility] Last Admin: 07/12/22 08:11 Dose: 100 mg Documented By: Admin: 07/11/22 08:04 Dose: 100 mg Documented By: Admin: 07/10/22 08:33 Dose: 100 mg Documented By: DREA Topiramate (Topiramate 25 Mg Tablet) 25 mg PO BEDTIME [facility] Topiramate (Topiramate 25 Mg Tablet) 50 mg PO BEDTIME [facility] Last Admin: 07/11/22 21:16 Dose: 50 mg Documented By: Admin: 07/10/22 21:03 Dose: 50 mg Documented By: JOSE D Admin: 07/09/22 21:20 Dose: 50 mg Documented By: VELASQUEZ Warfarin Sodium (Warfarin 1 Mg Tablet) 1 mg PO DAILY@1700 [facility] Last Admin: 07/09/22 17:54 Dose: 1 mg Documented By: PATRICIA Vital Signs Vital signs: Vital Signs - 8 hr 07/08/22 16:00 07/08/22 17:17 07/08/22 17:19 Temperature 98.7 F Pulse Rate 58 L 69 Respiratory Rate 20 Blood Pressure 143/82 H 150/89 H Pulse Oximetry 93 98 Oxygen Delivery Method Room Air 07/08/22 17:19 07/08/22 17:30 07/08/22 17:30 Temperature Pulse Rate 55 L 59 L Respiratory Rate Blood Pressure 147/79 H Pulse Oximetry 93 95 Oxygen Delivery Method 07/08/22 18:00 07/08/22 18:01 07/08/22 18:01 Temperature Pulse Rate 67 67 Respiratory Rate Blood Pressure 185/75 H Pulse Oximetry 95 95 Oxygen Delivery Method <Jean Claude Coker DO - Last Filed: 07/08/22 22:29> Orders Ordered: Discontinued Medications Acetaminophen (Acetaminophen 325 Mg Tablet) 650 mg PO Q6H PRN PRN Reason: Fever/Mild Pain (1-3) Last Admin: 07/11/22 06:08 Dose: 650 mg Documented By: JOSE D Hydrocodone Bitart/Acetaminophen (Hydrocodone/Acet 5/325 Tablet) 1 tab PO NOW ONE Stop: 07/08/22 16:09 Last Admin: 07/08/22 18:03 Dose: Not Given Documented By: LINDA Atorvastatin Calcium (Atorvastatin 20 Mg Tablet) 20 mg PO BEDTIME [facility] Atorvastatin Calcium (Atorvastatin 20 Mg Tablet) 10 mg PO BEDTIME [facility] Last Admin: 07/11/22 21:17 Dose: 10 mg Documented By: Admin: 07/10/22 21:02 Dose: 10 mg Documented By: Admin: 07/09/22 21:19 Dose: 10 mg Documented By: VELASQUEZ Calcitonin Villalba (Calcitonin,Villalba, Nasal [place]) 1 sprays NASAL DAILY [facility] Last Admin: 07/12/22 08:11 Dose: 1 sprays Documented By: Admin: 07/11/22 08:26 Dose: 1 sprays Documented By: Admin: 07/10/22 09:00 Dose: Not Given Documented By: DREA Carvedilol (Carvedilol 3.125 Mg Tablet) 3.125 mg PO DAILY [facility] Last Admin: 07/09/22 08:56 Dose: 3.125 mg Documented By: JEAN CARLOS Carvedilol (Carvedilol 3.125 Mg Tablet) 3.125 mg PO NOW ONE Stop: 07/09/22 01:57 Last Admin: 07/09/22 02:25 Dose: 3.125 mg Documented By: RITESH Clonazepam (Clonazepam 0.5 Mg Tablet) 0.5 mg PO NOW ONE Stop: 07/08/22 22:23 Last Admin: 07/08/22 22:44 Dose: 0.5 mg Documented By: RITESH Enoxaparin Sodium (Enoxaparin 30 Mg/0.3 Ml Syringe) 30 mg SUBCUT DAILY [facility] Last Admin: 07/09/22 08:57 Dose: 30 mg Documented By: JEAN CARLOS Furosemide (Furosemide 20 Mg/2 Ml Vial) 20 mg IV 0800,1700 [facility] Last Admin: 07/09/22 08:56 Dose: 20 mg Documented By: JEAN CARLOS Furosemide 60 mg/ Sodium (Chloride) 56 mls @ 112 mls/hr IV NOW ONE Stop: 07/08/22 17:27 Last Infusion: 07/08/22 18:21 Dose: 0 mls/hr Documented By: Admin: 07/08/22 17:35 Dose: 112 mls/hr Documented By: LINDA Levothyroxine Sodium (Levothyroxine 100 Mcg Tablet) 100 mcg PO DAILY@0600 [facility] [facility] Levothyroxine Sodium (Levothyroxine 100 Mcg Tablet) 100 mcg PO DAILY@0600 [facility] Last Admin: 07/12/22 05:09 Dose: 100 mcg Documented By: Admin: 07/11/22 06:06 Dose: 100 mcg Documented By: JOSE D Admin: 07/10/22 06:02 Dose: 100 mcg Documented By: VELASQUEZ Lidocaine (Lidocaine Patch 1 Each Adh..Patch) 1 each TOP NOW ONE Stop: 07/08/22 16:09 Last Admin: 07/08/22 16:45 Dose: 1 each Documented By: LINDA Lidocaine (Lidocaine Patch 1 Each Adh..Patch) 1 each TOP DAILY [facility] Last Admin: 07/12/22 08:11 Dose: 1 each Documented By: Admin: 07/11/22 08:04 Dose: 1 each Documented By: Admin: 07/10/22 08:33 Dose: 1 each Documented By: Admin: 07/09/22 08:58 Dose: 1 each Documented By: JEAN CARLOS Lidocaine (Remove Lidocaine Patch) 1 each TOP BEDTIME [facility] Last Admin: 07/11/22 21:17 Dose: Not Given Documented By: Admin: 07/10/22 21:03 Dose: 1 each Documented By: JOSE D Admin: 07/09/22 21:21 Dose: 1 each Documented By: VELASQUEZ Methocarbamol (Methocarbamol 500 Mg Tablet) 500 mg PO NOW ONE Stop: 07/08/22 16:09 Last Admin: 07/08/22 16:45 Dose: 500 mg Documented By: LINDA Methylprednisolone (Methylprednisolone 40 Mg/Ml Vial) 40 mg IV NOW ONE Stop: 07/08/22 22:24 Last Admin: 07/08/22 22:44 Dose: 40 mg Documented By: RITESH Methylprednisolone (Methylprednisolone 40 Mg/Ml Vial) 20 mg IV BID [facility] Last Admin: 07/09/22 08:57 Dose: 20 mg Documented By: JEAN CARLOS Metoprolol Tartrate (Metoprolol Tartrate 5 Mg/5 Ml Inj) 5 mg IV Q15M PRN PRN Reason: Hypertension Stop: 07/09/22 02:16 Naloxone HCl (Naloxone 0.4 Mg/Ml Vial) 0.2 mg IV Q2MIN PRN PRN Reason: Opiate Reversal Ondansetron HCl (Ondansetron 4 Mg/2 Ml Inj) 4 mg IV Q4HR PRN PRN Reason: Nausea And Vomiting Oxycodone/Acetaminophen (Oxycodone/Acetaminophen 5/325 Tablet) 1 tab PO NOW ONE Stop: 07/08/22 16:17 Last Admin: 07/08/22 16:47 Dose: 1 tab Documented By: LINDA Oxycodone/Acetaminophen (Oxycodone/Acetaminophen 5/325 Tablet) 1 tab PO Q6HR PRN PRN Reason: Pain, Moderate (4-10 Last Admin: 07/09/22 12:58 Dose: 1 tab Documented By: JEAN CARLOS Oxycodone/Acetaminophen (Oxycodone/Acetaminophen 5/325 Tablet) 1 tab PO Q4HR PRN PRN Reason: Pain, Moderate (4-6) Last Admin: 07/12/22 00:43 Dose: 1 tab Documented By: Admin: 07/11/22 16:39 Dose: 1 tab Documented By: Admin: 07/11/22 10:35 Dose: 1 tab Documented By: Admin: 07/10/22 19:36 Dose: 1 tab Documented By: Admin: 07/09/22 17:54 Dose: 1 tab Documented By: PATRICIA Polyethylene Glycol (Polyethylene Glycol 3350 17 Gm Powd.Pack) 17 gm PO DAILY [facility] Last Admin: 07/12/22 08:11 Dose: 17 gm Documented By: Admin: 07/11/22 08:04 Dose: 17 gm Documented By: Admin: 07/10/22 08:33 Dose: Not Given Documented By: DREA Potassium Chloride (Potassium Chloride 20 Meq Tab) 20 meq PO DAILYCC [facility] Potassium Chloride (Potassium Chloride 20 Meq Tab) 20 meq PO DAILYCC [facility] Last Admin: 07/12/22 08:10 Dose: 20 meq Documented By: Admin: 07/11/22 08:04 Dose: 20 meq Documented By: Admin: 07/10/22 08:33 Dose: 20 meq Documented By: DREA Prednisone (Prednisone 20 Mg Tablet) 20 mg PO NOW ONE Stop: 07/08/22 16:13 Last Admin: 07/08/22 16:46 Dose: 20 mg Documented By: LINDA Prednisone (Prednisone 5 Mg Tablet) 5 mg PO DAILY [facility] Last Admin: 07/12/22 08:11 Dose: 5 mg Documented By: Admin: 07/11/22 08:04 Dose: 5 mg Documented By: Admin: 07/10/22 08:33 Dose: 5 mg Documented By: DREA Sennosides (Sennosides 8.6 Mg Tablet) 17.2 mg PO BEDTIME [facility] Last Admin: 07/11/22 21:16 Dose: 17.2 mg Documented By: Admin: 07/10/22 21:02 Dose: 17.2 mg Documented By: JOSE D Admin: 07/09/22 21:17 Dose: Not Given Documented By: Admin: 07/09/22 00:43 Dose: Not Given Documented By: RITESH Sertraline HCl (Sertraline 50 Mg Tablet) 100 mg PO BEDTIME [facility] Sertraline HCl (Sertraline 50 Mg Tablet) 100 mg PO DAILY [facility] Last Admin: 07/12/22 08:11 Dose: 100 mg Documented By: Admin: 07/11/22 08:04 Dose: 100 mg Documented By: Admin: 07/10/22 08:33 Dose: 100 mg Documented By: DREA Topiramate (Topiramate 25 Mg Tablet) 25 mg PO BEDTIME [facility] Topiramate (Topiramate 25 Mg Tablet) 50 mg PO BEDTIME [facility] Last Admin: 07/11/22 21:16 Dose: 50 mg Documented By: Admin: 07/10/22 21:03 Dose: 50 mg Documented By: JOSE D Admin: 07/09/22 21:20 Dose: 50 mg Documented By: VELASQUEZ Warfarin Sodium (Warfarin 1 Mg Tablet) 1 mg PO DAILY@1700 [facility] Last Admin: 07/09/22 17:54 Dose: 1 mg Documented By: AWF Consultations Consultation #1: Discussed MRI findings with on-call orthopedist, Dr. Poole, no surgical findings. Recommends PT, possible bone scan, consideration of calcium and vitamin-D. Consultation #2: Hospitalist happy to accept Vital Signs Vital signs: Vital Signs - 8 hr 07/08/22 16:00 07/08/22 17:17 07/08/22 17:19 Temperature 98.7 F Pulse Rate 58 L 69 Respiratory Rate 20 Blood Pressure 143/82 H 150/89 H Pulse Oximetry 93 98 Oxygen Delivery Method Room Air 07/08/22 17:19 07/08/22 17:30 07/08/22 17:30 Temperature Pulse Rate 55 L 59 L Respiratory Rate Blood Pressure 147/79 H Pulse Oximetry 93 95 Oxygen Delivery Method 07/08/22 18:00 07/08/22 18:01 07/08/22 18:01 Temperature Pulse Rate 67 67 Respiratory Rate Blood Pressure 185/75 H Pulse Oximetry 95 95 Oxygen Delivery Method MDM - Back Pain/Injury <Minnie Lizarraga [facility] - Last Filed: 07/13/22 13:57> Lab Data 07/11/22 04:24 07/11/22 04:24 Labs: Lab Results 07/08/22 07/08/22 07/08/22 Range/Units 16:05 16:05 16:25 WBC 10.5 (4.5-11.0) X10^3/uL RBC 4.61 (4.0-5.2) X10^6/uL Hgb 14.1 (12.0-16.0) g/dL Hct 43.2 (36-46) % MCV 93.6 (80-100) fL MCH 30.6 (26-34) PG MCHC 32.7 (30-36) % RDW 15.7 H (11.6-14.8) % Plt Count 135 L (150-400) X10^3/uL Neut % (Auto) 76.2 H (50-75) % Lymph % (Auto) 16.2 L (25-40) % [place] % (Auto) 6.8 (3-14) % Eos % (Auto) 0.3 L (2-4) % Baso % (Auto) 0.5 (0-2) % Neut # (Auto) 8000 H (1141-7493) /uL Lymph # (Auto) 1700 (3007-1575) /uL [place] # (Auto) 700 (0-900) /uL Eos # (Auto) 0 (0-450) /uL Baso # (Auto) 0 (0-100) /uL PT 44.3 H (10.1-12.7) SECONDS INR 3.8 H (0.9-1.3) Sodium (137-145) mmol/L Potassium (3.4-5.1) mmol/L Chloride (98-107) mmol/L Carbon Dioxide (22-32) mmol/L BUN (7-17) mg/dL Creatinine (0.52-1.04) mg/dL Estimated GFR (>60) mL/min BUN/Creatinine Ratio (6-22) Glucose (80-110) mg/dL Calcium (8.4-10.2) mg/dL Magnesium (1.6-2.3) mg/dL Total Bilirubin (0.2-1.3) mg/dL AST (14-36) IU/L ALT (<35) IU/L Alkaline Phosphatase (38-126) U/L Total Creatine Kinase (30-135) U/L CK-MB (CK-2) CK-MB (CK-2) Rel Index Troponin I (0.01-0.034) ng/mL C-Reactive Protein 1.7 H (<1.0) mg/dL NT-Pro-B Natriuret Pep (<450) pg/mL Total Protein (6.3-8.2) g/dL Albumin (3.5-5.0) g/dL Globulin (1.7-4.1) g/dL Albumin/Globulin Ratio (1.0-2.8) Urine RBC (0-5/HPF) Urine WBC (0-5/HPF) Ur Squamous Epith Cells (0-5/HPF) Urine Bacteria (None) Ur Culture Indicated? SARS-CoV-2 (PCR) (Negative) 07/08/22 07/08/22 07/08/22 Range/Units 16:25 16:25 16:25 WBC (4.5-11.0) X10^3/uL RBC (4.0-5.2) X10^6/uL Hgb (12.0-16.0) g/dL Hct (36-46) % MCV (80-100) fL MCH (26-34) PG MCHC (30-36) % RDW (11.6-14.8) % Plt Count (150-400) X10^3/uL Neut % (Auto) (50-75) % Lymph % (Auto) (25-40) % [place] % (Auto) (3-14) % Eos % (Auto) (2-4) % Baso % (Auto) (0-2) % Neut # (Auto) (9505-9920) /uL Lymph # (Auto) (4365-1474) /uL [place] # (Auto) (0-900) /uL Eos # (Auto) (0-450) /uL Baso # (Auto) (0-100) /uL PT (10.1-12.7) SECONDS INR (0.9-1.3) Sodium 143 (137-145) mmol/L Potassium 5.0 (3.4-5.1) mmol/L Chloride 110 H (98-107) mmol/L Carbon Dioxide 24 (22-32) mmol/L BUN 26 H (7-17) mg/dL Creatinine 1.67 H (0.52-1.04) mg/dL Estimated GFR 31 L (>60) mL/min BUN/Creatinine Ratio 15.6 (6-22) Glucose 158 H (80-110) mg/dL Calcium 9.2 (8.4-10.2) mg/dL Magnesium 2.1 (1.6-2.3) mg/dL Total Bilirubin 0.5 (0.2-1.3) mg/dL AST 24 (14-36) IU/L ALT 23 (<35) IU/L Alkaline Phosphatase 220 H (38-126) U/L Total Creatine Kinase 27 L (30-135) U/L CK-MB (CK-2) TNP CK-MB (CK-2) Rel Index TNP Troponin I 0.015 (0.01-0.034) ng/mL C-Reactive Protein (<1.0) mg/dL NT-Pro-B Natriuret Pep 4380 H (<450) pg/mL Total Protein 6.3 (6.3-8.2) g/dL Albumin 3.8 (3.5-5.0) g/dL Globulin 2.5 (1.7-4.1) g/dL Albumin/Globulin Ratio 1.5 (1.0-2.8) Urine RBC (0-5/HPF) Urine WBC (0-5/HPF) Ur Squamous Epith Cells (0-5/HPF) Urine Bacteria (None) Ur Culture Indicated? SARS-CoV-2 (PCR) (Negative) 07/08/22 07/08/22 Range/Units 18:07 19:50 WBC (4.5-11.0) X10^3/uL RBC (4.0-5.2) X10^6/uL Hgb (12.0-16.0) g/dL Hct (36-46) % MCV (80-100) fL MCH (26-34) PG MCHC (30-36) % RDW (11.6-14.8) % Plt Count (150-400) X10^3/uL Neut % (Auto) (50-75) % Lymph % (Auto) (25-40) % [place] % (Auto) (3-14) % Eos % (Auto) (2-4) % Baso % (Auto) (0-2) % Neut # (Auto) (1798-2603) /uL Lymph # (Auto) (5107-8599) /uL [place] # (Auto) (0-900) /uL Eos # (Auto) (0-450) /uL Baso # (Auto) (0-100) /uL PT (10.1-12.7) SECONDS INR (0.9-1.3) Sodium (137-145) mmol/L Potassium (3.4-5.1) mmol/L Chloride (98-107) mmol/L Carbon Dioxide (22-32) mmol/L BUN (7-17) mg/dL Creatinine (0.52-1.04) mg/dL Estimated GFR (>60) mL/min BUN/Creatinine Ratio (6-22) Glucose (80-110) mg/dL Calcium (8.4-10.2) mg/dL Magnesium (1.6-2.3) mg/dL Total Bilirubin (0.2-1.3) mg/dL AST (14-36) IU/L ALT (<35) IU/L Alkaline Phosphatase (38-126) U/L Total Creatine Kinase (30-135) U/L CK-MB (CK-2) CK-MB (CK-2) Rel Index Troponin I (0.01-0.034) ng/mL C-Reactive Protein (<1.0) mg/dL NT-Pro-B Natriuret Pep (<450) pg/mL Total Protein (6.3-8.2) g/dL Albumin (3.5-5.0) g/dL Globulin (1.7-4.1) g/dL Albumin/Globulin Ratio (1.0-2.8) Urine RBC 5-10/hpf H (0-5/HPF) Urine WBC 0-1/hpf (0-5/HPF) Ur Squamous Epith Cells 0-1 /hpf (0-5/HPF) Urine Bacteria None seen (None) Ur Culture Indicated? Cult not indicated SARS-CoV-2 (PCR) Negative (Negative) Urine Dip Bedside Urine Glucose Negative Bedside Urine Bilirubin - Negative Bedside Urine Ketone - Negative Urine Specific [place] 1.015 Bedside Urine Occult Blood +/- Bedside Urine pH 5.5 Bedside Urine Protein - Negative Bedside Urine Urobilinogen - Negative Bedside Urine Nitrite - Negative Bedside Urine Leukocytes - Negative Esterase Imaging Data Chest x-ray: Radiologist's Impression: PROCEDURE:? XR CHEST 1V ? INDICATIONS:? chf? ? TECHNIQUE:? One view of the chest was acquired.? ? COMPARISON:? [facility], CT, CT CERVICAL SPINE WO CON, 04/29/2022, 17:33.? [facility], CR, XR CHEST 1V, 04/29/2022, 17:36.? [facility], CR, XR CHEST 1V, 03/08/2022, 17:44. ? FINDINGS:? ? Surgical changes and devices:? Cholecystectomy clips. ? Lungs and pleura:? Prominent pulmonary markings.? No consolidation.? No significant pleural effusions or pneumothorax.? ? Mediastinum:? Mediastinal contours appear normal.? Heart size is prominent.? ? Bones and chest wall:? No suspicious bony lesions.? Overlying soft tissues appear unremarkable.? ? IMPRESSION:? Prominent pulmonary markings.? This could be due to pulmonary vasculature engorgement or emphysematous change. ? ? Dictated by: Chevy Marcos M.D. on 07/08/2022 at 16:51 ? ? Approved by: Chevy Marcos M.D. on 07/08/2022 at 16:52 ? MRI: Radiologist's Impression: PROCEDURE:? MR LUMBAR SPINE WO CON ? INDICATIONS:? cauda equina ? TECHNIQUE:? Noncontrast sagittal T1 spin echo and T2 fast echo, sagittal STIR, and T2 fast spin echo through the lumbar spine.? In cases with scoliosis, additional coronal T2 fast spin echo may be performed.? ? COMPARISON:? [facility], MR, L-SPINE WITHOUT CONTRAST, 07/23/2010, 8:36.? [facility], MR, L-SPINE WITHOUT CONTRAST, 11/28/2015, 8:04.? [facility], CR, XR LUMBAR SPINE 2 OR 3 VIEWS, 06/23/2022, 13:40.? [facility], MR, MR LUMBAR SPINE WO CON, 08/09/2018, 8:36. ? FINDINGS:? Image quality:? Excellent.? ? Alignment and Curvature:? There is grade 1 anterolisthesis of L3 on L4 and L5 on S1.? ? Bone Marrow:? There are multiple compression fractures, severe at T12 and L1, mild at T11, and mild at L2 L3 and L4.? Mild marrow edema in L2 vertebral body suggest subacute fracture.? Other compression fractures are chronic.? ? Insufficiency fractures of sacral ala bilaterally. ? Spinal Cord:? Conus medullaris terminates at the L1-L2 level.? Visualized cord demonstrates normal signal and size.? ? Paraspinous Soft Tissues:? No paravertebral masses.? ? T12-L1:? Mild posterior disc bulge.? No central canal or foraminal stenosis.? ? L1-L2:? Diffuse posterior disc bulge and disc osteophyte complex.? No central canal stenosis or foraminal stenosis.? ? L2-L3:? Diffuse posterior disc bulge and disc osteophyte complex.? Mild bilateral facet arthropathy and hypertrophy of ligamentum flavum.? Mild central canal stenosis.? [id number] bilateral foraminal stenosis.? ? L3-L4:? Moderate loss of disc height and diffuse posterior disc bulge with disc osteophyte complex.? Moderate bilateral facet arthropathy and hypertrophy of ligamentum flavum.? Moderate central canal stenosis.? Severe left and moderate right foraminal stenosis.? ? L4-L5:? Aiqgbzkl-[id number] loss of disc height and diffuse posterior disc bulge with disc osteophyte complex.? Moderate bilateral facet arthropathy and hypertrophy of ligamentum flavum.? Moderate central canal stenosis.? Moderate bilateral foraminal stenosis.? ? L5-S1:? Mild loss of disc height and diffuse posterior disc bulge with large posterior disc osteophyte complex.? Tokxkrys-er-xkwwpr bilateral facet arthropathy and hypertrophy of ligamentum flavum.? Ugigxohs-vs-kgasxj central canal stenosis.? Severe bilateral foraminal stenosis.? ? ? IMPRESSION:? ? 1. Multilevel degenerative disc disease and facet arthropathy as described. ? 2. Multilevel central canal stenosis as described. ? 3. Multilevel foraminal stenosis as described. ? 4. Multiple compression fractures in lumbar spine.? Compression fracture in L2 is subacute.? Other fractures are chronic. ? 5. Bilateral sacral ala insufficiency fractures.? Dictated by: Camron Garcia M.D. on 07/08/2022 at 20:13 ? ? Approved by: Camron Garcia M.D. on 07/08/2022 at 20:22 ? MDM Narrative Medical decision making narrative: Chief Complaint: Acute on chronic low back pain Independent historian: Patient Differential diagnoses include but are not limited to: diskitis, arrhythmia, CHF exacerbation, disc injury/herniation, spinal stenosis, radiculopathy, paraspinal or other muscular strain, chronic pain, acute fracture, urinary tract infection, osteoarthritis, degenerative disc disease, cauda equina, osteomyelitis, epidural abscess, spinal stenosis, ligamental injury. I have reviewed the patient's vital signs and nursing notes as well as prior records if available. Prior Charts reviewed: Previous ED visits for CHF, falls, UTI Imaging reviewed: MR of her lumbar spine Course of care: Suspect likely acute exacerbation of chronic low back pain. Patient's straight leg raise test was positive. Patient has had increased urinary incontinence over the last week, denies fever, nausea vomiting. No history of IV substance use, or bony tenderness to palpation, no recent trauma, no tenderness over her lumbar spine, no rash,, afebrile, no CVAT although patient has straw-colored urine.. Patient has not been able to get out of her wheelchair for the last few days and states that it is too hard to get out of bed. Bilateral lower extremities are grossly edematous without weeping. No rash. She does not have Saddle anesthesia, no new/worsening distal weakness, decreased reflexes or foot drop. Pt is nontoxic appearing. She has tachypnea without increased work of breathing or wheezing. For her low back pain, she has soft tissue tenderness to palpation. Pt is neurovascularly intact distally, afebrile, but is immunosuppressed on daily prednisone for adrenal insufficiency, she is without hypertensive crisis, does incontinence, without peritoneal signs Bladder scan after incontinence shows less than 100 mL, urine a straw-colored, sent for UA and microscopy EKG shows atrial fibrillation, no history of atrial fibrillation in the past, prior EKG shows bigeminy. Patient is anticoagulated for prior DVT Consultation with Dr. Brody from hospitalist service regarding patient's case, she recommends MR of her lumbar spine, this was ordered stat and patient will go to MRI approximally 18 30, concerning for diskitis, transverse myelitis, cauda equina or other lumbar stenosis with increased incontinence over the last week. Will follow-up with hospitalist service after MR regarding disposition whether patient needs to be transferred or can stay here for diuresis, new onset AFib Stanley catheter placed for Lasix administration as patient can't get out of bed. Approximately 1 L of clear yellow urine diuresed following Lasix administration. Urine dip showed trace of blood, urine microscopy: Patient's symptoms improved over duration of stay with above-stated therapies. Discharge diagnosis, return precautions and plan discussed with patient followed by verbalization of understanding. Social considerations that may affect disposition: none Questions are addressed and there is agreement with the plan and for follow-up. MIPS: This encounter doesn't have any diagnosis' associated with MIPS criteria. <Krystin Figueroa, - Last Filed: 07/09/22 08:31> Lab Data Labs: Lab Results 07/08/22 07/08/22 07/08/22 Range/Units 16:05 16:05 16:25 WBC 10.5 (4.5-11.0) X10^3/uL RBC 4.61 (4.0-5.2) X10^6/uL Hgb 14.1 (12.0-16.0) g/dL Hct 43.2 (36-46) % MCV 93.6 (80-100) fL MCH 30.6 (26-34) PG MCHC 32.7 (30-36) % RDW 15.7 H (11.6-14.8) % Plt Count 135 L (150-400) X10^3/uL Neut % (Auto) 76.2 H (50-75) % Lymph % (Auto) 16.2 L (25-40) % [place] % (Auto) 6.8 (3-14) % Eos % (Auto) 0.3 L (2-4) % Baso % (Auto) 0.5 (0-2) % Neut # (Auto) 8000 H (6997-3948) /uL Lymph # (Auto) 1700 (2947-4897) /uL [place] # (Auto) 700 (0-900) /uL Eos # (Auto) 0 (0-450) /uL Baso # (Auto) 0 (0-100) /uL PT 44.3 H (10.1-12.7) SECONDS INR 3.8 H (0.9-1.3) Sodium (137-145) mmol/L Potassium (3.4-5.1) mmol/L Chloride (98-107) mmol/L Carbon Dioxide (22-32) mmol/L BUN (7-17) mg/dL Creatinine (0.52-1.04) mg/dL Estimated GFR (>60) mL/min BUN/Creatinine Ratio (6-22) Glucose (80-110) mg/dL Calcium (8.4-10.2) mg/dL Magnesium (1.6-2.3) mg/dL Total Bilirubin (0.2-1.3) mg/dL AST (14-36) IU/L ALT (<35) IU/L Alkaline Phosphatase (38-126) U/L Total Creatine Kinase (30-135) U/L CK-MB (CK-2) CK-MB (CK-2) Rel Index Troponin I (0.01-0.034) ng/mL C-Reactive Protein 1.7 H (<1.0) mg/dL NT-Pro-B Natriuret Pep (<450) pg/mL Total Protein (6.3-8.2) g/dL Albumin (3.5-5.0) g/dL Globulin (1.7-4.1) g/dL Albumin/Globulin Ratio (1.0-2.8) Urine RBC (0-5/HPF) Urine WBC (0-5/HPF) Ur Squamous Epith Cells (0-5/HPF) Urine Bacteria (None) Ur Culture Indicated? SARS-CoV-2 (PCR) (Negative) 07/08/22 07/08/22 07/08/22 Range/Units 16:25 16:25 16:25 WBC (4.5-11.0) X10^3/uL RBC (4.0-5.2) X10^6/uL Hgb (12.0-16.0) g/dL Hct (36-46) % MCV (80-100) fL MCH (26-34) PG MCHC (30-36) % RDW (11.6-14.8) % Plt Count (150-400) X10^3/uL Neut % (Auto) (50-75) % Lymph % (Auto) (25-40) % [place] % (Auto) (3-14) % Eos % (Auto) (2-4) % Baso % (Auto) (0-2) % Neut # (Auto) (8221-7587) /uL Lymph # (Auto) (3125-1579) /uL [place] # (Auto) (0-900) /uL Eos # (Auto) (0-450) /uL Baso # (Auto) (0-100) /uL PT (10.1-12.7) SECONDS INR (0.9-1.3) Sodium 143 (137-145) mmol/L Potassium 5.0 (3.4-5.1) mmol/L Chloride 110 H (98-107) mmol/L Carbon Dioxide 24 (22-32) mmol/L BUN 26 H (7-17) mg/dL Creatinine 1.67 H (0.52-1.04) mg/dL Estimated GFR 31 L (>60) mL/min BUN/Creatinine Ratio 15.6 (6-22) Glucose 158 H (80-110) mg/dL Calcium 9.2 (8.4-10.2) mg/dL Magnesium 2.1 (1.6-2.3) mg/dL Total Bilirubin 0.5 (0.2-1.3) mg/dL AST 24 (14-36) IU/L ALT 23 (<35) IU/L Alkaline Phosphatase 220 H (38-126) U/L Total Creatine Kinase 27 L (30-135) U/L CK-MB (CK-2) TNP CK-MB (CK-2) Rel Index TNP Troponin I 0.015 (0.01-0.034) ng/mL C-Reactive Protein (<1.0) mg/dL NT-Pro-B Natriuret Pep 4380 H (<450) pg/mL Total Protein 6.3 (6.3-8.2) g/dL Albumin 3.8 (3.5-5.0) g/dL Globulin 2.5 (1.7-4.1) g/dL Albumin/Globulin Ratio 1.5 (1.0-2.8) Urine RBC (0-5/HPF) Urine WBC (0-5/HPF) Ur Squamous Epith Cells (0-5/HPF) Urine Bacteria (None) Ur Culture Indicated? SARS-CoV-2 (PCR) (Negative) 07/08/22 07/08/22 Range/Units 18:07 19:50 WBC (4.5-11.0) X10^3/uL RBC (4.0-5.2) X10^6/uL Hgb (12.0-16.0) g/dL Hct (36-46) % MCV (80-100) fL MCH (26-34) PG MCHC (30-36) % RDW (11.6-14.8) % Plt Count (150-400) X10^3/uL Neut % (Auto) (50-75) % Lymph % (Auto) (25-40) % [place] % (Auto) (3-14) % Eos % (Auto) (2-4) % Baso % (Auto) (0-2) % Neut # (Auto) (7511-2067) /uL Lymph # (Auto) (9303-3537) /uL [place] # (Auto) (0-900) /uL Eos # (Auto) (0-450) /uL Baso # (Auto) (0-100) /uL PT (10.1-12.7) SECONDS INR (0.9-1.3) Sodium (137-145) mmol/L Potassium (3.4-5.1) mmol/L Chloride (98-107) mmol/L Carbon Dioxide (22-32) mmol/L BUN (7-17) mg/dL Creatinine (0.52-1.04) mg/dL Estimated GFR (>60) mL/min BUN/Creatinine Ratio (6-22) Glucose (80-110) mg/dL Calcium (8.4-10.2) mg/dL Magnesium (1.6-2.3) mg/dL Total Bilirubin (0.2-1.3) mg/dL AST (14-36) IU/L ALT (<35) IU/L Alkaline Phosphatase (38-126) U/L Total Creatine Kinase (30-135) U/L CK-MB (CK-2) CK-MB (CK-2) Rel Index Troponin I (0.01-0.034) ng/mL C-Reactive Protein (<1.0) mg/dL NT-Pro-B Natriuret Pep (<450) pg/mL Total Protein (6.3-8.2) g/dL Albumin (3.5-5.0) g/dL Globulin (1.7-4.1) g/dL Albumin/Globulin Ratio (1.0-2.8) Urine RBC 5-10/hpf H (0-5/HPF) Urine WBC 0-1/hpf (0-5/HPF) Ur Squamous Epith Cells 0-1 /hpf (0-5/HPF) Urine Bacteria None seen (None) Ur Culture Indicated? Cult not indicated SARS-CoV-2 (PCR) Negative (Negative) Urine Dip Bedside Urine Glucose Negative Bedside Urine Bilirubin - Negative Bedside Urine Ketone - Negative Urine Specific [place] 1.015 Bedside Urine Occult Blood +/- Bedside Urine pH 5.5 Bedside Urine Protein - Negative Bedside Urine Urobilinogen - Negative Bedside Urine Nitrite - Negative Bedside Urine Leukocytes - Negative Esterase ECG Data Attestation: I personally reviewed and interpreted this ECG as follows: Prior ECG tracings: available for review Interpretation: Atrial fib, rate 87 ID 76, QTC of 452. No ST elevation. Patient has prior from 03/08/2022 does show P waves with QRS is but isn't a bigeminal pattern <Jean Claude Coker DO - Last Filed: 07/08/22 22:29> Lab Data Labs: Lab Results 07/08/22 07/08/22 07/08/22 Range/Units 16:05 16:05 16:25 WBC 10.5 (4.5-11.0) X10^3/uL RBC 4.61 (4.0-5.2) X10^6/uL Hgb 14.1 (12.0-16.0) g/dL Hct 43.2 (36-46) % MCV 93.6 (80-100) fL MCH 30.6 (26-34) PG MCHC 32.7 (30-36) % RDW 15.7 H (11.6-14.8) % Plt Count 135 L (150-400) X10^3/uL Neut % (Auto) 76.2 H (50-75) % Lymph % (Auto) 16.2 L (25-40) % [place] % (Auto) 6.8 (3-14) % Eos % (Auto) 0.3 L (2-4) % Baso % (Auto) 0.5 (0-2) % Neut # (Auto) 8000 H (3844-4773) /uL Lymph # (Auto) 1700 (9368-7383) /uL [place] # (Auto) 700 (0-900) /uL Eos # (Auto) 0 (0-450) /uL Baso # (Auto) 0 (0-100) /uL PT 44.3 H (10.1-12.7) SECONDS INR 3.8 H (0.9-1.3) Sodium (137-145) mmol/L Potassium (3.4-5.1) mmol/L Chloride (98-107) mmol/L Carbon Dioxide (22-32) mmol/L BUN (7-17) mg/dL Creatinine (0.52-1.04) mg/dL Estimated GFR (>60) mL/min BUN/Creatinine Ratio (6-22) Glucose (80-110) mg/dL Calcium (8.4-10.2) mg/dL Magnesium (1.6-2.3) mg/dL Total Bilirubin (0.2-1.3) mg/dL AST (14-36) IU/L ALT (<35) IU/L Alkaline Phosphatase (38-126) U/L Total Creatine Kinase (30-135) U/L CK-MB (CK-2) CK-MB (CK-2) Rel Index Troponin I (0.01-0.034) ng/mL C-Reactive Protein 1.7 H (<1.0) mg/dL NT-Pro-B Natriuret Pep (<450) pg/mL Total Protein (6.3-8.2) g/dL Albumin (3.5-5.0) g/dL Globulin (1.7-4.1) g/dL Albumin/Globulin Ratio (1.0-2.8) Urine RBC (0-5/HPF) Urine WBC (0-5/HPF) Ur Squamous Epith Cells (0-5/HPF) Urine Bacteria (None) Ur Culture Indicated? SARS-CoV-2 (PCR) (Negative) 07/08/22 07/08/22 07/08/22 Range/Units 16:25 16:25 16:25 WBC (4.5-11.0) X10^3/uL RBC (4.0-5.2) X10^6/uL Hgb (12.0-16.0) g/dL Hct (36-46) % MCV (80-100) fL MCH (26-34) PG MCHC (30-36) % RDW (11.6-14.8) % Plt Count (150-400) X10^3/uL Neut % (Auto) (50-75) % Lymph % (Auto) (25-40) % [place] % (Auto) (3-14) % Eos % (Auto) (2-4) % Baso % (Auto) (0-2) % Neut # (Auto) (6896-8635) /uL Lymph # (Auto) (8757-8587) /uL Burnet # (Auto) (0-900) /uL Eos # (Auto) (0-450) /uL Baso # (Auto) (0-100) /uL PT (10.1-12.7) SECONDS INR (0.9-1.3) Sodium 143 (137-145) mmol/L Potassium 5.0 (3.4-5.1) mmol/L Chloride 110 H (98-107) mmol/L Carbon Dioxide 24 (22-32) mmol/L BUN 26 H (7-17) mg/dL Creatinine 1.67 H (0.52-1.04) mg/dL Estimated GFR 31 L (>60) mL/min BUN/Creatinine Ratio 15.6 (6-22) Glucose 158 H (80-110) mg/dL Calcium 9.2 (8.4-10.2) mg/dL Magnesium 2.1 (1.6-2.3) mg/dL Total Bilirubin 0.5 (0.2-1.3) mg/dL AST 24 (14-36) IU/L ALT 23 (<35) IU/L Alkaline Phosphatase 220 H (38-126) U/L Total Creatine Kinase 27 L (30-135) U/L CK-MB (CK-2) TNP CK-MB (CK-2) Rel Index TNP Troponin I 0.015 (0.01-0.034) ng/mL C-Reactive Protein (<1.0) mg/dL NT-Pro-B Natriuret Pep 4380 H (<450) pg/mL Total Protein 6.3 (6.3-8.2) g/dL Albumin 3.8 (3.5-5.0) g/dL Globulin 2.5 (1.7-4.1) g/dL Albumin/Globulin Ratio 1.5 (1.0-2.8) Urine RBC (0-5/HPF) Urine WBC (0-5/HPF) Ur Squamous Epith Cells (0-5/HPF) Urine Bacteria (None) Ur Culture Indicated? SARS-CoV-2 (PCR) (Negative) 07/08/22 07/08/22 Range/Units 18:07 19:50 WBC (4.5-11.0) X10^3/uL RBC (4.0-5.2) X10^6/uL Hgb (12.0-16.0) g/dL Hct (36-46) % MCV (80-100) fL MCH (26-34) PG MCHC (30-36) % RDW (11.6-14.8) % Plt Count (150-400) X10^3/uL Neut % (Auto) (50-75) % Lymph % (Auto) (25-40) % Burnet % (Auto) (3-14) % Eos % (Auto) (2-4) % Baso % (Auto) (0-2) % Neut # (Auto) (5268-2765) /uL Lymph # (Auto) (5821-8134) /uL Burnet # (Auto) (0-900) /uL Eos # (Auto) (0-450) /uL Baso # (Auto) (0-100) /uL PT (10.1-12.7) SECONDS INR (0.9-1.3) Sodium (137-145) mmol/L Potassium (3.4-5.1) mmol/L Chloride (98-107) mmol/L Carbon Dioxide (22-32) mmol/L BUN (7-17) mg/dL Creatinine (0.52-1.04) mg/dL Estimated GFR (>60) mL/min BUN/Creatinine Ratio (6-22) Glucose (80-110) mg/dL Calcium (8.4-10.2) mg/dL Magnesium (1.6-2.3) mg/dL Total Bilirubin (0.2-1.3) mg/dL AST (14-36) IU/L ALT (<35) IU/L Alkaline Phosphatase (38-126) U/L Total Creatine Kinase (30-135) U/L CK-MB (CK-2) CK-MB (CK-2) Rel Index Troponin I (0.01-0.034) ng/mL C-Reactive Protein (<1.0) mg/dL NT-Pro-B Natriuret Pep (<450) pg/mL Total Protein (6.3-8.2) g/dL Albumin (3.5-5.0) g/dL Globulin (1.7-4.1) g/dL Albumin/Globulin Ratio (1.0-2.8) Urine RBC 5-10/hpf H (0-5/HPF) Urine WBC 0-1/hpf (0-5/HPF) Ur Squamous Epith Cells 0-1 /hpf (0-5/HPF) Urine Bacteria None seen (None) Ur Culture Indicated? Cult not indicated SARS-CoV-2 (PCR) Negative (Negative) Urine Dip Bedside Urine Glucose Negative Bedside Urine Bilirubin - Negative Bedside Urine Ketone - Negative Urine Specific [place] 1.015 Bedside Urine Occult Blood +/- Bedside Urine pH 5.5 Bedside Urine Protein - Negative Bedside Urine Urobilinogen - Negative Bedside Urine Nitrite - Negative Bedside Urine Leukocytes - Negative Esterase MDM Narrative Medical decision making narrative: Chief Complaint: Acute on chronic low back pain Independent historian: Patient Differential diagnoses include but are not limited to: diskitis, arrhythmia, CHF exacerbation, disc injury/herniation, spinal stenosis, radiculopathy, paraspinal or other muscular strain, chronic pain, acute fracture, urinary tract infection, osteoarthritis, degenerative disc disease, cauda equina, osteomyelitis, epidural abscess, spinal stenosis, ligamental injury. I have reviewed the patient's vital signs and nursing notes as well as prior records if available. Prior Charts reviewed: Previous ED visits for CHF, falls, UTI Imaging reviewed: MR of her lumbar spine Course of care: Suspect likely acute exacerbation of chronic low back pain. Patient's straight leg raise test was positive. Patient has had increased urinary incontinence over the last week, denies fever, nausea vomiting. No history of IV substance use, or bony tenderness to palpation, no recent trauma, no tenderness over her lumbar spine, no rash,, afebrile, no CVAT although patient has straw-colored urine.. Patient has not been able to get out of her wheelchair for the last few days and states that it is too hard to get out of bed. Bilateral lower extremities are grossly edematous without weeping. No rash. She does not have Saddle anesthesia, no new/worsening distal weakness, decreased reflexes or foot drop. Pt is nontoxic appearing. She has tachypnea without increased work of breathing or wheezing. For her low back pain, she has soft tissue tenderness to palpation. Pt is neurovascularly intact distally, afebrile, but is immunosuppressed on daily prednisone for adrenal insufficiency, she is without hypertensive crisis, does incontinence, without peritoneal signs Bladder scan after incontinence shows less than 100 mL, urine a straw-colored, sent for UA and microscopy EKG shows atrial fibrillation, no history of atrial fibrillation in the past, prior EKG shows bigeminy. Patient is anticoagulated for prior DVT Consultation with Dr. Brody from hospitalist service regarding patient's case, she recommends MR of her lumbar spine, this was ordered stat and patient will go to MRI approximally 18 30, concerning for diskitis, transverse myelitis, cauda equina or other lumbar stenosis with increased incontinence over the last week. Will follow-up with hospitalist service after MR regarding disposition whether patient needs to be transferred or can stay here for diuresis, new onset AFib Stanley catheter placed for Lasix administration as patient can't get out of bed. Approximately 1 L of clear yellow urine diuresed following Lasix administration. Urine dip showed trace of blood, urine microscopy: Patient's symptoms improved over duration of stay with above-stated therapies. Discharge diagnosis, return precautions and plan discussed with patient followed by verbalization of understanding. Social considerations that may affect disposition: none Questions are addressed and there is agreement with the plan and for follow-up. MIPS: This encounter doesn't have any diagnosis' associated with MIPS criteria. [2000] (John [place]) Patient received in sign out from [employer] have reviewed the clinical course and performed an independent history and physical exam. Patient will require hospitalization due to intractable back pain and inability to ambulate despite being medicated. Additionally she has evidence of an exacerbation of CHF and has responded to Lasix. Finally she has newly discovered atrial fibrillation and though she is rate controlled further evaluation and stabilization would be appropriate under these circumstances. Patient and family understand the diagnosis and plan. Hospitalist has accepted patient Discharge Plan Departure Patient Disposition: Admitted as Observation Clinical Impression: Acute exacerbation of chronic low back pain, Chronic anticoagulation, Chronic adrenal insufficiency, Pulmonary vascular congestion, Elevated brain natriuretic peptide (BNP) level, Bilateral edema of lower extremity, Supratherapeutic INR, Hematuria CHF exacerbation Qualifiers: Heart failure type: unspecified Qualified Code(s): I50.9 - Heart failure, unspecified Admit Date/Time: 07/08/22 21:37 Admit Provider: Beverley Pendleton <Krystin Figueroa, - Last Filed: 07/09/22 08:31> Cosign ED Attending Cossagrarioature Attestation: I was immediately available in the department for consultation. Case was discussed with myself. Patient initially came for back pain has had some urinary incontinence which may be new and discussion with hospitalist decision was made for MR L-spine. Patient also appears to be in AFib which appears new although prior EKG does show a bigeminal atrial pattern, patient is anticoagulated on warfarin appropriately but that is reportedly for DVT or blood clots. She has been rate controlled in the department without any hypotension. Workup also shows changes in her exam consistent with CHF, chronic kidney disease which appears to be close to baseline without major electrolyte abnormalities, INR slightly supratherapeutic at 3.8. Patient had been given pain medication, dose of prednisone and Lasix. Signed out to Dr. Coker while awaiting rest of workup.
--- NOTE | 2022-07-08 16:19 | DI.RAD.S_ITS ---
PROCEDURE: XR CHEST 1V INDICATIONS: chf? TECHNIQUE: One view of the chest was acquired. COMPARISON: [facility], CT, CT CERVICAL SPINE WO CON, 04/29/2022, 17:33. [facility], CR, XR CHEST 1V, 04/29/2022, 17:36. [facility], CR, XR CHEST 1V, 03/08/2022, 17:44. FINDINGS: Surgical changes and devices: Cholecystectomy clips. Lungs and pleura: Prominent pulmonary markings. No consolidation. No significant pleural effusions or pneumothorax. Mediastinum: Mediastinal contours appear normal. Heart size is prominent. Bones and chest wall: No suspicious bony lesions. Overlying soft tissues appear unremarkable. IMPRESSION: Prominent pulmonary markings. This could be due to pulmonary vasculature engorgement or emphysematous change. Dictated by: Chevy Marcos M.D. on 07/08/2022 at 16:51 Approved by: Chevy Marcos M.D. on 07/08/2022 at 16:52
[2022-07-08 16:44] LABS: Add Manual Diff / Slide Review NO; Basophils Absolute Auto 0 /uL (0-100); Basophils Percent Auto 0.5 % (0-2); Eosinophils Absolute Auto 0 /uL (0-450); Eosinophils Percent Auto 0.3 % (2-4); Hematocrit 43.2 % (36-46); Hemoglobin 14.1 g/dL (12.0-16.0); Lymphocytes Absolute Auto 1700 /uL (1100-4500); Lymphocytes Percent Auto 16.2 % (25-40); Mean Corpuscular HGB Conc 32.7 % (30-36); Mean Corpuscular Hemoglobin 30.6 PG (26-34); Mean Corpuscular Volume 93.6 fL (80-100); Monocytes Absolute Auto 700 /uL (0-900); Monocytes Percent Auto 6.8 % (3-14); Neutrophils Absolute Auto 8000 /uL (1500-7000); Neutrophils Percent Auto 76.2 % (50-75); Platelet Count 135 X10^3/uL (150-400); Red Blood Cell Count 4.61 X10^6/uL (4.0-5.2); Red Cell Distribution Width 15.7 % (11.6-14.8); White Blood Cell Count 10.5 X10^3/uL (4.5-11.0)
[2022-07-08] MEDS: LIDOCAINE PATCH 1 EACH ADH..PATCH TOP (16:45)
[2022-07-08] MEDS: methocarbamoL 500 MG TABLET PO (16:45)
[2022-07-08] MEDS: predniSONE 20 MG TABLET PO (16:46)
[2022-07-08] MEDS: OXYCODONE/ACETAMINOPHEN 5/325 TABLET 1 TAB PO (16:47)
[2022-07-08 16:53] LABS: INR 3.8 (0.9-1.3); Prothrombin Time 44.3 SECONDS (10.1-12.7)
[2022-07-08 16:59] LABS: Alanine Aminotransferase 23 IU/L (<35); Albumin 3.8 g/dL (3.5-5.0); Albumin Globulin Ratio 1.5 (1.0-2.8); Alkaline Phosphatase 220 U/L (38-126); Aspartate Aminotransferase 24 IU/L (14-36); BUN Creatinine Ratio 15.6 (6-22); Bilirubin Total 0.5 mg/dL (0.2-1.3); Blood Urea Nitrogen 26 mg/dL (7-17); Calcium 9.2 mg/dL (8.4-10.2); Carbon Dioxide 24 mmol/L (22-32); Chloride 110 mmol/L (98-107); Estimated Glomerular Filt Rate 31 mL/min (>60); Globulin 2.5 g/dL (1.7-4.1); Glucose 158 mg/dL (80-110); HEMOLYSIS < 15 (0-50); Magnesium 2.1 mg/dL (1.6-2.3); Sodium 143 mmol/L (137-145); Total Protein 6.3 g/dL (6.3-8.2)
[2022-07-08 17:03] LABS: C-Reactive Protein Quant 1.7 mg/dL (<1.0)
[2022-07-08 17:07] LABS: NT-proBNP (BNP-Adult 18+) 4380 pg/mL (<450)
[2022-07-08 17:28] LABS: Creatine Kinase 27 U/L (30-135)
[2022-07-08] MEDS: FUROSEMIDE 60 MG in SODIUM CHLORIDE 0.9% 50 ML 112 MG IV (17:35)
[2022-07-08 17:41] LABS: Troponin I 0.015 ng/mL (0.01-0.034)
--- NOTE | 2022-07-08 17:52 | DI.MRI.S_ITS ---
PROCEDURE: MR LUMBAR SPINE WO CON INDICATIONS: cauda equina TECHNIQUE: Noncontrast sagittal T1 spin echo and T2 fast echo, sagittal STIR, and T2 fast spin echo through the lumbar spine. In cases with scoliosis, additional coronal T2 fast spin echo may be performed. COMPARISON: [facility], MR, L-SPINE WITHOUT CONTRAST, 07/23/2010, 8:36. [facility], MR, L-SPINE WITHOUT CONTRAST, 11/28/2015, 8:04. [facility], CR, XR LUMBAR SPINE 2 OR 3 VIEWS, 06/23/2022, 13:40. [facility], MR, MR LUMBAR SPINE WO CON, 08/09/2018, 8:36. FINDINGS: Image quality: Excellent. Alignment and Curvature: There is grade 1 anterolisthesis of L3 on L4 and L5 on S1. Bone Marrow: There are multiple compression fractures, severe at T12 and L1, mild at T11, and mild at L2 L3 and L4. Mild marrow edema in L2 vertebral body suggest subacute fracture. Other compression fractures are chronic. Insufficiency fractures of sacral ala bilaterally. Spinal Cord: Conus medullaris terminates at the L1-L2 level. Visualized cord demonstrates normal signal and size. Paraspinous Soft Tissues: No paravertebral masses. T12-L1: Mild posterior disc bulge. No central canal or foraminal stenosis. L1-L2: Diffuse posterior disc bulge and disc osteophyte complex. No central canal stenosis or foraminal stenosis. L2-L3: Diffuse posterior disc bulge and disc osteophyte complex. Mild bilateral facet arthropathy and hypertrophy of ligamentum flavum. Mild central canal stenosis. [id number] bilateral foraminal stenosis. L3-L4: Moderate loss of disc height and diffuse posterior disc bulge with disc osteophyte complex. Moderate bilateral facet arthropathy and hypertrophy of ligamentum flavum. Moderate central canal stenosis. Severe left and moderate right foraminal stenosis. L4-L5: Vfrjeuro-ug-[id number] loss of disc height and diffuse posterior disc bulge with disc osteophyte complex. Moderate bilateral facet arthropathy and hypertrophy of ligamentum flavum. Moderate central canal stenosis. Moderate bilateral foraminal stenosis. L5-S1: Mild loss of disc height and diffuse posterior disc bulge with large posterior disc osteophyte complex. [id number] bilateral facet arthropathy and hypertrophy of ligamentum flavum. Xdiirrmi-kq-[id number] central canal stenosis. Severe bilateral foraminal stenosis. IMPRESSION: 1. Multilevel degenerative disc disease and facet arthropathy as described. 2. Multilevel central canal stenosis as described. 3. Multilevel foraminal stenosis as described. 4. Multiple compression fractures in lumbar spine. Compression fracture in L2 is subacute. Other fractures are chronic. 5. Bilateral sacral ala insufficiency fractures. Dictated by: Camron Garcia M.D. on 07/08/2022 at 20:13 Approved by: Camron Garcia M.D. on 07/08/2022 at 20:22
[2022-07-08 18:32] LABS: COVID19 -Nasal RAPID Negative (Negative)
[2022-07-08 20:09] LABS: RBC Urine 5-10/HPF (0-5/HPF); Squamous Epithelial Cell Urine 0-1 /HPF (0-5/HPF); WBC Urine 0-1/HPF (0-5/HPF)
[2022-07-08 20:10] LABS: Bacteria Urine None Seen; Culture Indicated Urine Cult Not Indicated
--- NOTE | 2022-07-08 22:36 | P.HP_ITS ---
History of Present Illness History of Present Illness Date Patient Seen: 07/08/22 Time Patient Seen: 22:48 Chief complaint: Back pain Narrative: Christine Burger (Lorraine) is a bashir 76 year-old patient with a history of hypertension, hyperlipidemia, chronic hip pain, autoimmune disease, chronic kidney disease stage 4, hypothyroidism, reflux, prior DVT currently an ticoagulated on Coumadin, bilateral lower extremity edema, lumbar canal stenosis, L2 compression fracture, osteoporosis, prior lumbar laminectomy, right hip arthroplasty, left venous insufficiency, and pulmonary fibrosis, who presentedwith increasing weakness, severe low back pain worsening over the last several days now unable to stand, acute urinary incontinence. In ED she denied a fall, denies head injury, states that she has swollen lower extremities which have been this way for a very long time, fever chills, or rash.? Patient is boarding in ED went down for admit examination found patient heavily sedated from pain medication, difficult to rouse, confused and pleasantly disorientated. Patient experienced what appeared to be a 10 beat asymptomatic run of V-tach which quickly resolved, consistent hypertensive urgency in ED 185/75, 202/91, heart rate stable 86, RR 16, O2 saturation 93% on room air, patient continues to demonstrate trigeminy w/PVC's,and PAC's without AFib. EKG I personally reviewed sinus arrhythmia with a rate at 88 with a first-degree AV block with frequent PVCs anteroseptal infarct of undetermined age prolonged QT, this is consistent with prior EKG's. Also reviewed EKG from earlier in the day, questionable onset of new AFib. After reviewing the EKGs appears a sinus arrhythmia with frequent PVCs without atrial fibrillation. Unable to obtain HPI, ROS due to patient's confusion and sedation. Labs platelet 135 (baseline chronic thrombocytopenia), chloride 110, BUN 26, creatinine 1.67, glucose 158, GFR 31-these are baseline for her CKD stage 3, PT 44.3, INR 3.8, CK 27, CRP 1.7, initial troponin negative, COVID negative, urine was negative, (chronic elevated BNP) BNP 4380. +3 bilateral lower extremity edema. Echo 03/08/2022 EF 60-65%, mild aortic regurg, mild mitral annular calcification. Chest x-ray prominent pulmonary markings. Lumbar MRI:?Multilevel degenerative disc disease and facet arthropathy, Multilevel central canal stenosis, Multilevel foraminal stenosis, Multiple compression fractures in lumbar spine.? Compression fracture in L2 is subacute, Other fractures are chronic, Bilateral sacral ala insufficiency fractures. Patient admitted for severe low back pain resulting in lower extremity weakness and urinary incontinence, HTN urgency,and supratherapeutic INR. [facility] Medical History Atypical migraine Bilateral lower extremity edema Chicken pox (~1951) Chronic adrenal insufficiency Chronic anticoagulation Chronic back pain (~1964) Chronic diarrhea Chronic kidney disease Fecal incontinence (~2021) Headache (~2021) Hearing loss (~2011) History of DVT (deep vein thrombosis) History of kidney disease (~2002) Hyperlipidemia Hypertension Interstitial lung disease Irritable bowel syndrome (~2012) Measles (~1951) Mixed hyperlipidemia Mumps (~1951) 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 Stage 3b chronic kidney disease (CKD) Uses walker Venous (peripheral) insufficiency Surgical History Anesthesia History of back surgery (~2012) History of throat surgery (~1974) Family History Father Cancer History of heart disease Mother Hypertension Social History household members: spouse Smoking Status: Never smoker alcohol intake: current Meds Home Medications and Allergies Home Medications Medication Instructions Recorded Confirmed Type acetaminophen 500 mg tablet 500 mg PO Q6H PRN Pain (Scale 10/09/17 06/10/22 History (Tylenol Extra Strength) Score 4-6) levothyroxine 100 mcg capsule 100 mcg PO DAILY 10/09/17 06/10/22 History omeprazole 20 mg capsule,delayed 20 mg PO BID 10/09/17 06/10/22 History release ondansetron HCl 4 mg tablet 4 mg PO TID PRN nausea 10/09/17 06/10/22 History (Zofran) polyethylene glycol 3350 17 gram 17 gram PO DAILY 10/09/17 06/10/22 History oral powder packet prednisone 5 mg tablet 5 mg PO DAILY 10/09/17 06/10/22 History topiramate 25 mg capsule,extended 50 mg PO BEDTIME 10/09/17 06/10/22 History release 24 hr digestive enzymes 1 cap PO DAILY 06/10/22 06/10/22 History oxycodone-acetaminophen 5 mg-325 1 tab PO QID #120 tabs 06/10/22 06/10/22 Rx mg tablet oxycodone-acetaminophen 5 mg-325 1 tab PO QID #120 tabs 06/10/22 06/10/22 Rx mg tablet oxycodone-acetaminophen 5 mg-325 1 tab PO QID pain #120 tabs 06/10/22 06/10/22 Rx mg tablet potassium chloride 20 mEq 20 meq PO DAILY 06/10/22 06/10/22 History tablet,extended release(part/cryst) sertraline 100 mg tablet 100 mg PO DAILY 06/10/22 06/10/22 History simvastatin 10 mg tablet 10 mg PO DAILY 06/10/22 06/10/22 History warfarin 1 mg tablet 1 mg PO DAILY #120 tabs 06/10/22 Rx cholecalciferol (vitamin D3) 125 125 mcg PO DAILY 06/15/22 History mcg (5,000 unit) capsule lidocaine 5 % topical patch 1 patch topical DAILY PRN back 07/08/22 Rx (Lidoderm) pain #30 ea methocarbamol 500 mg tablet 500 mg PO BID PRN muscle spasm #20 07/08/22 Rx tabs prednisone 20 mg tablet 20 mg PO DAILY #4 tabs 07/08/22 Rx Allergies Allergy/AdvReac Type Severity Reaction Status Date / Time amoxicillin [AMOXICILLIN] Allergy Severe rash and Verified 06/10/22 09:13 diarrhea oxybutynin Allergy Severe tongue Verified 06/10/22 09:13 swells Sulfa (Sulfonamide Allergy Severe fever and Verified 06/10/22 09:13 Antibiotics) rash [SULFA (SULFONAMIDE ANTIBIOTICS)] NSAIDS (Non-Steroidal Allergy Unknown Verified 06/10/22 09:13 Anti-Inflamma [NSAIDS (NON-STEROIDAL ANTI-INFLAMMA] cephalexin Allergy rash Verified 06/10/22 09:13 codeine [CODEINE] AdvReac Mild headache Verified 06/10/22 09:13 duloxetine [From CYMBALTA] AdvReac Mild vomiting Verified 06/10/22 09:13 morphine [MORPHINE] AdvReac Mild vomiting Verified 06/10/22 09:13 nitrofurantoin AdvReac Mild vomiting Verified 06/10/22 09:13 [From MACROBID] carisoprodol AdvReac Verified 06/10/22 09:13 piroxicam [From Feldene] AdvReac Verified 06/10/22 09:13 tolterodine AdvReac Verified 06/10/22 09:13 Review of Systems Review of Systems Narrative: Unable to obtain ROS due to sedation and confusion Exam Vital Signs (past 8 hours): - 07/08/22 16:00 07/08/22 17:17 07/08/22 17:19 Temperature 98.7 F Pulse Rate 58 L 69 Respiratory Rate 20 Blood Pressure 143/82 H 150/89 H Pulse Oximetry 93 98 Oxygen Delivery Method Room Air 07/08/22 17:19 07/08/22 17:30 07/08/22 17:30 Temperature Pulse Rate 55 L 59 L Respiratory Rate Blood Pressure 147/79 H Pulse Oximetry 93 95 Oxygen Delivery Method 07/08/22 18:00 07/08/22 18:01 07/08/22 18:01 Temperature Pulse Rate 67 67 Respiratory Rate Blood Pressure 185/75 H Pulse Oximetry 95 95 Oxygen Delivery Method Oxygen Delivery Method Room Air Narrative Exam Narrative: General:? Frail-appearing but in no acute distress, bashir elderly female, fairly sedated and pleasantly confused. HEENT:? dry mucous membranes, normal sclera with reactive pupils, airway is patent. Atraumatic Neck:? Minimal JVD, supple Respiratory:? Lung sounds are clear in all castro without any adventitious sounds Cardiac:? Regular rate irregular rhythm without no murmurs, rubs or gallops Abdomen:? Soft, nontender, good bowel tones in all 4 quadrants, no CVA tenderness Skin:? Warm and dry, no rashes Neurologic:? Globally weak but Grossly neurologically intact with no obvious asymmetries or abnormalities Extremities:? warm dry, radial & pedal pulses intact,? moves all extremites, chronic venous stasis changes, 3+ lower extremity edema bilaterally Psych:? Pleasant, heavily sedated, confused and disorientated. Objective Labs 07/08/22 16:25 07/08/22 16:25 Labs: Laboratory Results - last 24 hr 07/08/22 07/08/22 07/08/22 16:05 16:05 16:25 WBC 10.5 RBC 4.61 Hgb 14.1 Hct 43.2 MCV 93.6 MCH 30.6 MCHC 32.7 RDW 15.7 H Plt Count 135 L Neut % (Auto) 76.2 H Lymph % (Auto) 16.2 L Bradley % (Auto) 6.8 Eos % (Auto) 0.3 L Baso % (Auto) 0.5 Neut # (Auto) 8000 H Lymph # (Auto) 1700 Bradley # (Auto) 700 Eos # (Auto) 0 Baso # (Auto) 0 PT 44.3 H INR 3.8 H Sodium Potassium Chloride Carbon Dioxide BUN Creatinine Estimated GFR BUN/Creatinine Ratio Glucose Calcium Magnesium Total Bilirubin AST ALT Alkaline Phosphatase Total Creatine Kinase CK-MB (CK-2) CK-MB (CK-2) Rel Index Troponin I C-Reactive Protein 1.7 H NT-Pro-B Natriuret Pep Total Protein Albumin Globulin Albumin/Globulin Ratio Urine RBC Urine WBC Ur Squamous Epith Cells Urine Bacteria Ur Culture Indicated? SARS-CoV-2 (PCR) 07/08/22 07/08/22 07/08/22 16:25 16:25 16:25 WBC RBC Hgb Hct MCV MCH MCHC RDW Plt Count Neut % (Auto) Lymph % (Auto) Bradley % (Auto) Eos % (Auto) Baso % (Auto) Neut # (Auto) Lymph # (Auto) Bradley # (Auto) Eos # (Auto) Baso # (Auto) PT INR Sodium 143 Potassium 5.0 Chloride 110 H Carbon Dioxide 24 BUN 26 H Creatinine 1.67 H Estimated GFR 31 L BUN/Creatinine Ratio 15.6 Glucose 158 H Calcium 9.2 Magnesium 2.1 Total Bilirubin 0.5 AST 24 ALT 23 Alkaline Phosphatase 220 H Total Creatine Kinase 27 L CK-MB (CK-2) TNP CK-MB (CK-2) Rel Index TNP Troponin I 0.015 C-Reactive Protein NT-Pro-B Natriuret Pep 4380 H Total Protein 6.3 Albumin 3.8 Globulin 2.5 Albumin/Globulin Ratio 1.5 Urine RBC Urine WBC Ur Squamous Epith Cells Urine Bacteria Ur Culture Indicated? SARS-CoV-2 (PCR) 07/08/22 07/08/22 18:07 19:50 WBC RBC Hgb Hct MCV MCH MCHC RDW Plt Count Neut % (Auto) Lymph % (Auto) Bradley % (Auto) Eos % (Auto) Baso % (Auto) Neut # (Auto) Lymph # (Auto) Bradley # (Auto) Eos # (Auto) Baso # (Auto) PT INR Sodium Potassium Chloride Carbon Dioxide BUN Creatinine Estimated GFR BUN/Creatinine Ratio Glucose Calcium Magnesium Total Bilirubin AST ALT Alkaline Phosphatase Total Creatine Kinase CK-MB (CK-2) CK-MB (CK-2) Rel Index Troponin I C-Reactive Protein NT-Pro-B Natriuret Pep Total Protein Albumin Globulin Albumin/Globulin Ratio Urine RBC 5-10/hpf H Urine WBC 0-1/hpf Ur Squamous Epith Cells 0-1 /hpf Urine Bacteria None seen Ur Culture Indicated? Cult not indicated SARS-CoV-2 (PCR) Negative Assessment & Plan Assessment & Plan narrative: Christine Burger (Lorraine) is a bashir 76 year-old patient with a history of hyp ertension, hyperlipidemia, microscopic polyangilitis, chronic hip pain, autoimmune disease, chronic kidney disease stage 4, hypothyroidism, reflux, prior DVT currently anticoagulated on Coumadin, bilateral lower extremity edema, lumbar canal stenosis, L2 compression fracture, osteoporosis, prior lumbar laminectomy, right hip arthroplasty, venous insufficiency, and pulmonary fibrosis, who presented with increasing weakness, severe low back pain worsening over the last several days now unable to stand, acute urinary incontinence. Patient admitted for severe low back pain resulting in lower extremity weakness, acute urinary incontinence, HTN urgency and supratherapeutic INR. 1. Severe low back pain exacerbation, acute on chronic, with lower extremity weakness, acute on chronic, urinary incontinence, acute, present on admission -contributing diagnosis multilevel degenerative disc disease, multilevel central canal stenosis, and multilevel foraminal stenosis. -Diff dx: Stroke, ACS, myelopathy, transverse myelitis, spinal cord inflammation or compression, worsening polyneuropathy. -Lumbar MRI:?Multilevel degenerative disc disease and facet arthropathy, Multilevel central canal stenosis, Multilevel foraminal stenosis, Multiple compression fractures in lumbar spine.? Compression fracture in L2 is subacute, Other fractures are chronic, Bilateral sacral ala insufficiency fractures. -Recommend weighted T2 imaging of cervical, thoracic, and lumbar-for more accurate cord compression evaluation. -Ordered MRI to r/o stroke -recommend on discharge Neurology consult and evaluation -Pain management: Trial solumederol 20mg IV BID, Ice packs to back, Lidocaine patch -PT OT evaluation -ED placed a catheter 2. Hypertensive urgency in the setting of hypertension, essential, acute on chronic, present on admission -In ED 185/75, / -patient was previously noted to be on carvedilol, will initiate 3.125 mg daily- until further verification of medications can be obtained -metoprolol 5 mg IV for coverage per: Give for >30min sustained SBP>180,DBP>100,HR>110 (cautious of low heart rate) 3. Supratherapeutic INR, acute secondary to chronic anticoagulation for history of DVT, present on admission -admit PT 44.3, INR 3.8 -Will hold Coumadin-trend INR -Normally takes warfarin 1 mg daily except 1.5 mg on Tuesdays -monitor for bleeding 4.? Chronic kidney disease stage 4, chronic, with associated hyperlipidemia, mixed, chronic present on admission- stable -chloride 110, BUN 26, creatinine 1.67, glucose 158, GFR 31- Baseline -trend renal function, avoid nephrotoxic medications -provide Lipitor place the patient's simvastatin 5. Elevated BNP, chronic, with chronic bilateral lower extremity edema, secondary to peripheral venous insufficiency, acute on chronic, present on admission -CHF had been ruled out with normal echo and clinically does not appear in heart failure 03/08/2022 -Echo 03/08/2022 EF 60-65%, mild aortic regurg, mild mitral annular calcification. -Chest x-ray prominent pulmonary markings. -60 of Lasix given in ED -we will continue gentle diuresis, if patient demonstrates worsening symptoms of CHF will repeat echo. -IV Lasix 20 mg b.i.d. 6. Premature atrial contractions, acute on chronic, present on admission- stable -patient does not appear symptomatic from these, PACs, and I do not believe the patient has developed new atrial fibrillation - EKG I personally reviewed sinus arrhythmia with a rate at 88 with a first- degree AV block with frequent PVCs anteroseptal infarct of undetermined age prolonged QT, this is consistent with prior EKG's. -Also reviewed EKG from earlier in the day, with questionable onset of new AFib. After reviewing the EKGs appears a sinus arrhythmia with frequent PACs without atrial fibrillation. -patient to remain on tele continue to monitor. Potassium sodium and magnesium are all WNL 7. Microscopic polyangiitis -continue on prednisone 5 mg q.d. 8. Thrombocytopenia, chronic, present on admission - platelet 135 (baseline chronic thrombocytopenia) 9. Overweight, Mild, acute on chronic, present on admission -BMI 28.9 -dietary consult ordered regarding nutritional education and information for dietary, lifestyle, exercise, and weight changes. -the patient is at much higher risk for medical and surgical complications due to obesity as it relates to chronic illnesses:, and acute illness. The patie nt's obesity increases the difficulty and complexity of medical and/or surgical interventions, management and increases the chances of poor outcome such as morbidity and mortality as well as impaired wound healing. 10. Hypothyroidism, acquired, chronic, present on admission -continue levothyroxine -ordered TSH/T4 11. Atypical migraine, chronic, present on admission -continue Topiramate Code Full Surrogate: Bill Love spouse DVT/VTE: Love & SCD's Disposition:? Patient admitted to acute care, expected length of stay less than 2 midnights. I have utilized all available immediate resources to obtain, update, or review the patient's current medications.. I confirmed that the patient's advanced care plan is present, Code status is documented and/or surrogate decision maker is listed in the patient's medical record. I have personally reviewed patient's chart notes from PCP, specialists, diagn ostic imaging, and laboratory,
[2022-07-08] MEDS: clonazePAM 0.5 MG TABLET PO (22:44)
[2022-07-09] VITALS (20 sets, daily range): BP systolic 143–206; BP diastolic 63–101; PULSE 52–94; RESP 17–34; TEMP 36.4–36.7; O2SAT 92–99; BMI 28.9
--- NOTE | 2022-07-09 01:50 | DI.MRI.S_ITS ---
PROCEDURE: MR HEAD/BRAIN WO CON INDICATIONS: HTN urgency/lower ext weakness TECHNIQUE: Non-contrast axial T1 spin echo, axial T2 fast spin echo, sagittal and axial FLAIR, coronal T2 fast spin echo, axial gradient echo, axial diffusion and ADC through the brain. COMPARISON: [facility], CT, CT HEAD/BRAIN WO CON, 04/29/2022, 17:33. FINDINGS: Image quality: Excellent. CSF spaces: Ventricles are prominent consistent with cerebral atrophy.. Basal cisterns are patent. No extra-axial fluid collections. Brain: No intracranial bleeds or mass effects. There is cerebral volume loss for age. There are periventricular and deep white matter chronic small vessel ischemic changes. White matter changes noted within the kobe as well. Diffusion-weighted images show no acute ischemic insults. No chronic ischemic insults. Normal intravascular flow voids are present. Two small regions of susceptibility artifact within the cerebellar hemispheres. No corresponding FLAIR signal abnormality. Skull and face: Calvarial bone marrow is normal in signal. Orbits are normal. Sinuses: Sinuses and mastoids are clear. IMPRESSION: Findings consistent with diffuse microvascular ischemic changes in cerebral volume loss without evidence of acute ischemia. Small regions of susceptibility artifact noted within the cerebellar hemispheres likely represents sequela of remote microhemorrhage. Dictated by: Leo Wilson D.O. on 07/09/2022 at 9:29 Approved by: Leo Wilson D.O. on 07/09/2022 at 9:33
[2022-07-09] MEDS: carvediloL 3.125 MG TABLET PO ×2 (02:25→08:56)
[2022-07-09 07:02] LABS: INR 3.5 (0.9-1.3); Prothrombin Time 40.3 SECONDS (10.1-12.7)
[2022-07-09 07:05] LABS: Add Manual Diff / Slide Review NO; Basophils Absolute Auto 0 /uL (0-100); Basophils Percent Auto 0.1 % (0-2); Eosinophils Absolute Auto 0 /uL (0-450); Hematocrit 45.3 % (36-46); Hemoglobin 14.8 g/dL (12.0-16.0); Lymphocytes Absolute Auto 1600 /uL (1100-4500); Lymphocytes Percent Auto 16.6 % (25-40); Mean Corpuscular HGB Conc 32.6 % (30-36); Mean Corpuscular Hemoglobin 30.3 PG (26-34); Monocytes Absolute Auto 200 /uL (0-900); Monocytes Percent Auto 2.2 % (3-14); Neutrophils Absolute Auto 8000 /uL (1500-7000); Neutrophils Percent Auto 81.1 % (50-75); Platelet Count 142 X10^3/uL (150-400); Red Blood Cell Count 4.87 X10^6/uL (4.0-5.2); Red Cell Distribution Width 15.7 % (11.6-14.8); White Blood Cell Count 9.9 X10^3/uL (4.5-11.0)
[2022-07-09 07:19] LABS: Alanine Aminotransferase 22 IU/L (<35); Albumin 4.1 g/dL (3.5-5.0); Albumin Globulin Ratio 1.5 (1.0-2.8); Alkaline Phosphatase 205 U/L (38-126); Aspartate Aminotransferase 23 IU/L (14-36); BUN Creatinine Ratio 14.5 (6-22); Bilirubin Total 0.6 mg/dL (0.2-1.3); Blood Urea Nitrogen 25 mg/dL (7-17); Calcium 8.9 mg/dL (8.4-10.2); Carbon Dioxide 29 mmol/L (22-32); Chloride 103 mmol/L (98-107); Estimated Glomerular Filt Rate 30 mL/min (>60); Globulin 2.7 g/dL (1.7-4.1); Glucose 144 mg/dL (80-110); HEMOLYSIS 16 (0-50); Magnesium 1.9 mg/dL (1.6-2.3); Potassium 3.8 mmol/L (3.4-5.1); Sodium 142 mmol/L (137-145); Total Protein 6.8 g/dL (6.3-8.2)
[2022-07-09 07:22] LABS: NT-proBNP (BNP-Adult 18+) 4550 pg/mL (<450)
[2022-07-09 07:54] LABS: TSH w/ Reflex to FT4 0.31 uIU/mL (0.47-4.68)
[2022-07-09 08:28] LABS: Free T4, Direct Thyroxine 1.58 ng/dL (0.78-2.19)
--- NOTE | 2022-07-09 08:39 | PC.NURSE ---
Pt is alert to self, place, although incorrect city and alert to situation. Pt speaking in clear and coherent sentences. Pt is breathing even and labored. Catheter in place with output. Bilateral +4 lower extremity edema. Skin pink, warm and dry. Pt reports no pain while laying in bed and gets worse with movement. Repositioned pt and set her up with breakfast tray. Pt assisting self to meal and tolerating well. Updated on plan of care.
[2022-07-09] MEDS: FUROSEMIDE 20 MG/2 ML VIAL IV (08:56)
[2022-07-09] MEDS: ENOXAPARIN 30 MG/0.3 ML SYRINGE SUBCUT (08:57)
[2022-07-09] MEDS: LIDOCAINE PATCH 1 EACH ADH..PATCH TOP (08:58)
--- NOTE | 2022-07-09 09:48 | DIET.CONS ---
Dietary Consultation Note Admission Date: 07/08/2022 21:37 Assessment: RD consulted for BMI. Rec OP nutrition therapy prn. Ht: 157.48 cm Wt: 71.668 kg BMI: 27.5 Last BM: () MNA: Clemente Score: Diet: 07/08/22 Breakfast Heart Healthy Diet Diet Modifications: Sodium Level: 2 gm Sodium Labs: RBC 4.87 X10^6/uL (4.0-5.2) 07/09/22 06:10 Hgb 14.8 g/dL (12.0-16.0) 07/09/22 06:10 Hct 45.3 % (36-46) 07/09/22 06:10 Creatinine 1.72 mg/dL (0.52-1.04) H 07/09/22 06:10 NT-Pro-B Natriuret Pep 4550 pg/mL (<450) H 07/09/22 06:10 Electronically Signed by: Morena Mitchell 07/09/22 09:48 Clinical Dietitian [address] [id number]
--- NOTE | 2022-07-09 10:12 | P.CONS_ITS ---
History of Present Illness Consult details Date Patient Seen: 07/09/22 Time Patient Seen: 10:35 Chief complaint: Back pain Reason for consult: sacral insufficiency fractures Requesting provider: Jean Claude Coker Narrative: patient is a 76-year-old female with bilateral back hip pain and worsening ability to ambulate over the last week. She is previously a household ambulator with a walker. She is a history of chronic back pain. History of right total hip replacement in 2010. On chronic Coumadin for previous DVT. 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 And kidney insufficiency. Independent history was also obtained from the patient's daughter and who were present during this evaluation. The patient has had chronic back and hip pain and last saw Dr. Mccann on 06/23/2022 for an evaluation she would had previous bilateral trochanteric bursa injections which did not provide any s ignificant relief. She was recommended to see interventional spine consider injections for multilevel degenerative lumbar disease. Her hip replacement was found to be functioning well. The patient and family endorse a worsening of her condition over the last 1 week when she went suddenly from being able to walk with her walker to increased pain and difficulty and then inability to do so. She had a fall about 2 months ago but no recent falls in the last week. She feels that her pain is in her low back and hip and pelvis type area. Her believes it may be a little bit higher than down on the hip that she was complaining of a couple weeks ago. She states it switches from the right to the left side depending on the day. Or the time of day. She notes some tingling in the left leg that comes and goes no specific distribution and sometimes just in the toes but mostly low back pelvis and hip pain as the complaint. She does seem to have some difficulty remembering and giving me detail today. And she is just returned from brain MRI. I note in the chart that she was found to have new AFib and she was administered Lasix for edema during her stay in the emergency room. Neither she nor her family can remember the last time she had a DEXA scan. They do note she is on on chronic prednisone. She is not on any current osteoporotic treatment other than vitamin-D. They do mention she is had some increasing urinary frequency. She notes that she will feel the urge to go to the restroom and does not always make it. She denies any burning or irritation. Notes she is also had loose stools 4-0 while as well. She saw a GI physician about 3 weeks ago that was a new physician for her in 1 to try Imodium 1st which she notes has seemed to help, There is a diagnosis of irritable bowel syndrome chart. Meds Home Medications and Allergies Home Medications Medication Instructions Recorded Confirmed Type acetaminophen 500 mg tablet 500 mg PO Q6H PRN Pain (Scale 10/09/17 06/10/22 History (Tylenol Extra Strength) Score 4-6) levothyroxine 100 mcg capsule 100 mcg PO DAILY 10/09/17 06/10/22 History omeprazole 20 mg capsule,delayed 20 mg PO BID 10/09/17 06/10/22 History release ondansetron HCl 4 mg tablet 4 mg PO TID PRN nausea 10/09/17 06/10/22 History (Zofran) polyethylene glycol 3350 17 gram 17 gram PO DAILY 10/09/17 06/10/22 History oral powder packet prednisone 5 mg tablet 5 mg PO DAILY 10/09/17 06/10/22 History topiramate 25 mg capsule,extended 50 mg PO BEDTIME 10/09/17 06/10/22 History release 24 hr digestive enzymes 1 cap PO DAILY 06/10/22 06/10/22 History oxycodone-acetaminophen 5 mg-325 1 tab PO QID #120 tabs 06/10/22 06/10/22 Rx mg tablet oxycodone-acetaminophen 5 mg-325 1 tab PO QID #120 tabs 06/10/22 06/10/22 Rx mg tablet oxycodone-acetaminophen 5 mg-325 1 tab PO QID pain #120 tabs 06/10/22 06/10/22 Rx mg tablet potassium chloride 20 mEq 20 meq PO DAILY 06/10/22 06/10/22 History tablet,extended release(part/cryst) sertraline 100 mg tablet 100 mg PO DAILY 06/10/22 06/10/22 History simvastatin 10 mg tablet 10 mg PO DAILY 06/10/22 06/10/22 History warfarin 1 mg tablet 1 mg PO DAILY #120 tabs 06/10/22 Rx cholecalciferol (vitamin D3) 125 125 mcg PO DAILY 06/15/22 History mcg (5,000 unit) capsule lidocaine 5 % topical patch 1 patch topical DAILY PRN back 07/08/22 Rx (Lidoderm) pain #30 ea methocarbamol 500 mg tablet 500 mg PO BID PRN muscle spasm #20 07/08/22 Rx tabs prednisone 20 mg tablet 20 mg PO DAILY #4 tabs 07/08/22 Rx Allergies Allergy/AdvReac Type Severity Reaction Status Date / Time amoxicillin [AMOXICILLIN] Allergy Severe rash and Verified 06/10/22 09:13 diarrhea oxybutynin Allergy Severe tongue Verified 06/10/22 09:13 swells Sulfa (Sulfonamide Allergy Severe fever and Verified 06/10/22 09:13 Antibiotics) rash [SULFA (SULFONAMIDE ANTIBIOTICS)] NSAIDS (Non-Steroidal Allergy Unknown Verified 06/10/22 09:13 Anti-Inflamma [NSAIDS (NON-STEROIDAL ANTI-INFLAMMA] cephalexin Allergy rash Verified 06/10/22 09:13 codeine [CODEINE] AdvReac Mild headache Verified 06/10/22 09:13 duloxetine [From CYMBALTA] AdvReac Mild vomiting Verified 06/10/22 09:13 morphine [MORPHINE] AdvReac Mild vomiting Verified 06/10/22 09:13 nitrofurantoin AdvReac Mild vomiting Verified 06/10/22 09:13 [From MACROBID] carisoprodol AdvReac Verified 06/10/22 09:13 piroxicam [From Feldene] AdvReac Verified 06/10/22 09:13 tolterodine AdvReac Verified 06/10/22 09:13 Review of Systems Constitutional Constitutional: Reports weakness ENT Ears, Nose, Mouth, and Throat: Yes system reviewed and no additional complaints, except as documented Cardiovascular Cardiovascular: Reports edema Respiratory Respiratory: Reports system reviewed and no additional complaints, except as documented Gastrointestinal Gastrointestinal: Reports loose stools Genitourinary Genitourinary: Reports system reviewed and no additional complaints, except as documented and Reports nocturia Musculoskeletal Musculoskeletal: Reports system reviewed and no additional complaints, except as documented, Reports abnormal gait, Reports back pain, Reports radiating pain into limb and Reports tingling ( intermittent) Neurologic Neurologic: Reports system reviewed and no additional complaints, except as documented, Reports abnormal gait, Reports tingling ( intermittent) and Reports weakness Hematologic/Lymphatic Hematologic/Lymphatic: Reports system reviewed and no additional complaints, except as documented Comments: supratherapeutic INR Exam Vital Signs (past 8 hours): - 07/09/22 02:25 04/08/23 04:15 07/09/22 04:00 Temperature Pulse Rate 66 Respiratory Rate 18 Blood Pressure 181/82 H 161/77 H Pulse Oximetry 93 Oxygen Delivery Method Room Air 07/09/22 04:00 07/09/22 06:00 07/09/22 08:56 Temperature Pulse Rate 75 68 94 H Respiratory Rate 23 Blood Pressure 157/101 H Pulse Oximetry 95 Oxygen Delivery Method 07/09/22 08:00 07/09/22 08:00 07/09/22 08:53 Temperature Pulse Rate 71 Respiratory Rate 30 H Blood Pressure 169/76 H 157/101 H Pulse Oximetry 94 Oxygen Delivery Method 07/09/22 08:53 Temperature 97.5 F L Pulse Rate 80 Respiratory Rate 29 H Blood Pressure Pulse Oximetry 93 Oxygen Delivery Method Room Air Oxygen Delivery Method Room Air Narrative Exam Narrative: the patient is an alert female lying in bed. She does have trouble answering a few questions details, but is aware of place time person and overall good historian. Her daughter and join in the interview and provide additional history. she is just returned from brain MRI and is lying on her stretcher. She notes that she had a lot of pain moving back and forth off the table for the imaging study. HEENT exam normocephalic atraumatic respiratory exam unlabored on room air general exam alert and oriented no acute distress heart regular rate there is a Stanley in place yellow urine musculoskeletal exam: complains of low back and pelvis pain. Demonstrates normal motion bilateral upper extremities. Demonstrate straight leg raise of the left and right lower extremities. 5/5 on the left 4/5 on the right reproducing low back posterior hip pain. 5/5 ankle dorsiflexion right and left. 5/5 EHL on the left and right. Endorses some tingling into her left lower extremity that comes and goes. Is unable to demonstrated distribution on this morning's examination. Demonstrates active knee flexion and extension Bilateral knees. No effusions. Negative log roll for groin pain bilaterally. No specific pain with compression along the greater trochanters. Endorses bilateral low back pelvis pain. lower extremities without pretibial pitting edema this morning. Per report patient did have swelling then received Lasix yesterday Objective Imaging MRI - lumbar: My impression: independent interpretation lumbar MRI 07/04/2022 [facility] demonstrates multilevel degenerative change with compression fractures T11 through L3, chronic with exception of L2 with mild edema likely subacute. bilateral sacral ala insufficiency fractures with edema signal, bright. Multilevel degenerative changes multilevel central canal and foraminal stenosis most significant at L5- S1 with grade 1 anterolisthesis L5-S1 Radiologist's impression: PROCEDURE:? MR LUMBAR SPINE WO CON ? INDICATIONS:? cauda equina ? TECHNIQUE:? Noncontrast sagittal T1 spin echo and T2 fast echo, sagittal STIR, and T2 fast spin echo through the lumbar spine.? In cases with scoliosis, additional coronal T2 fast spin echo may be performed.? ? COMPARISON:? [facility], MR, L-SPINE WITHOUT CONTRAST, 07/23/2010, 8:36.? [facility], MR, L-SPINE WITHOUT CONTRAST, 11/28/2015, 8:04.? [facility], CR, XR LUMBAR SPINE 2 OR 3 VIEWS, 06/23/2022, 13:40.? [facility], , MR LUMBAR SPINE WO CON, 08/09/2018, 8:36. ? FINDINGS:? Image quality:? Excellent.? ? Alignment and Curvature:? There is grade 1 anterolisthesis of L3 on L4 and L5 on S1.? ? Bone Marrow:? There are multiple compression fractures, severe at T12 and L1, mild at T11, and mild at L2 L3 and L4.? Mild marrow edema in L2 vertebral body suggest subacute fracture.? Other compression fractures are chronic.? ? Insufficiency fractures of sacral ala bilaterally. ? Spinal Cord:? Conus medullaris terminates at the L1-L2 level.? Visualized cord demonstrates normal signal and size.? ? Paraspinous Soft Tissues:? No paravertebral masses.? ? T12-L1:? Mild posterior disc bulge.? No central canal or foraminal stenosis.? ? L1-L2:? Diffuse posterior disc bulge and disc osteophyte complex.? No central canal stenosis or foraminal stenosis.? ? L2-L3:? Diffuse posterior disc bulge and disc osteophyte complex.? Mild bilateral facet arthropathy and hypertrophy of ligamentum flavum.? Mild central canal stenosis.? Akon-[id number] bilateral foraminal stenosis.? ? L3-L4:? Moderate loss of disc height and diffuse posterior disc bulge with disc osteophyte complex.? Moderate bilateral facet arthropathy and hypertrophy of ligamentum flavum.? Moderate central canal stenosis.? Severe left and moderate right foraminal stenosis.? ? L4-L5:? Rheacgbt-wo-thmudq loss of disc height and diffuse posterior disc bulge with disc osteophyte complex.? Moderate bilateral facet arthropathy and hypertrophy of ligamentum flavum.? Moderate central canal stenosis.? Moderate bilateral foraminal stenosis.? ? L5-S1:? Mild loss of disc height and diffuse posterior disc bulge with large posterior disc osteophyte complex.? Weirjdlj-uv-edgvwi bilateral facet arthropathy and hypertrophy of ligamentum flavum.? Kulxagce-vr-kawiwl central canal stenosis.? Severe bilateral foraminal stenosis.? ? ? IMPRESSION:? ? 1. Multilevel degenerative disc disease and facet arthropathy as described. ? 2. Multilevel central canal stenosis as described. ? 3. Multilevel foraminal stenosis as described. ? 4. Multiple compression fractures in lumbar spine.? Compression fracture in L2 is subacute.? Other fractures are chronic. ? 5. Bilateral sacral ala insufficiency fractures.? Dictated by: Camron Garcia M.D. on 07/08/2022 at 20:13? Labs 07/09/22 06:10 07/09/22 06:10 Labs: Laboratory Results - last 24 hr 07/08/22 07/08/22 07/08/22 16:05 16:05 16:25 WBC 10.5 RBC 4.61 Hgb 14.1 Hct 43.2 MCV 93.6 MCH 30.6 MCHC 32.7 RDW 15.7 H Plt Count 135 L Neut % (Auto) 76.2 H Lymph % (Auto) 16.2 L [place] % (Auto) 6.8 Eos % (Auto) 0.3 L Baso % (Auto) 0.5 Neut # (Auto) 8000 H Lymph # (Auto) 1700 [place] # (Auto) 700 Eos # (Auto) 0 Baso # (Auto) 0 PT 44.3 H INR 3.8 H Sodium Potassium Chloride Carbon Dioxide BUN Creatinine Estimated GFR BUN/Creatinine Ratio Glucose Calcium Magnesium Total Bilirubin AST ALT Alkaline Phosphatase Total Creatine Kinase CK-MB (CK-2) CK-MB (CK-2) Rel Index Troponin I C-Reactive Protein 1.7 H NT-Pro-B Natriuret Pep Total Protein Albumin Globulin Albumin/Globulin Ratio TSH Free T4 Urine RBC Urine WBC Ur Squamous Epith Cells Urine Bacteria Ur Culture Indicated? SARS-CoV-2 (PCR) 07/08/22 07/08/22 07/08/22 16:25 16:25 16:25 WBC RBC Hgb Hct MCV MCH MCHC RDW Plt Count Neut % (Auto) Lymph % (Auto) [place] % (Auto) Eos % (Auto) Baso % (Auto) Neut # (Auto) Lymph # (Auto) [place] # (Auto) Eos # (Auto) Baso # (Auto) PT INR Sodium 143 Potassium 5.0 Chloride 110 H Carbon Dioxide 24 BUN 26 H Creatinine 1.67 H Estimated GFR 31 L BUN/Creatinine Ratio 15.6 Glucose 158 H Calcium 9.2 Magnesium 2.1 Total Bilirubin 0.5 AST 24 ALT 23 Alkaline Phosphatase 220 H Total Creatine Kinase 27 L CK-MB (CK-2) TNP CK-MB (CK-2) Rel Index TNP Troponin I 0.015 C-Reactive Protein NT-Pro-B Natriuret Pep 4380 H Total Protein 6.3 Albumin 3.8 Globulin 2.5 Albumin/Globulin Ratio 1.5 TSH Free T4 Urine RBC Urine WBC Ur Squamous Epith Cells Urine Bacteria Ur Culture Indicated? SARS-CoV-2 (PCR) 07/08/22 07/08/22 07/09/22 18:07 19:50 06:10 WBC 9.9 RBC 4.87 Hgb 14.8 Hct 45.3 MCV 93.0 MCH 30.3 MCHC 32.6 RDW 15.7 H Plt Count 142 L Neut % (Auto) 81.1 H Lymph % (Auto) 16.6 L [place] % (Auto) 2.2 L Eos % (Auto) 0.0 L Baso % (Auto) 0.1 Neut # (Auto) 8000 H Lymph # (Auto) 1600 [place] # (Auto) 200 Eos # (Auto) 0 Baso # (Auto) 0 PT INR Sodium Potassium Chloride Carbon Dioxide BUN Creatinine Estimated GFR BUN/Creatinine Ratio Glucose Calcium Magnesium Total Bilirubin AST ALT Alkaline Phosphatase Total Creatine Kinase CK-MB (CK-2) CK-MB (CK-2) Rel Index Troponin I C-Reactive Protein NT-Pro-B Natriuret Pep Total Protein Albumin Globulin Albumin/Globulin Ratio TSH Free T4 Urine RBC 5-10/hpf H Urine WBC 0-1/hpf Ur Squamous Epith Cells 0-1 /hpf Urine Bacteria None seen Ur Culture Indicated? Cult not indicated SARS-CoV-2 (PCR) Negative 07/09/22 07/09/22 07/09/22 06:10 06:10 06:10 WBC RBC Hgb Hct MCV MCH MCHC RDW Plt Count Neut % (Auto) Lymph % (Auto) [place] % (Auto) Eos % (Auto) Baso % (Auto) Neut # (Auto) Lymph # (Auto) [place] # (Auto) Eos # (Auto) Baso # (Auto) PT 40.3 H INR 3.5 H Sodium 142 Potassium 3.8 D Chloride 103 Carbon Dioxide 29 BUN 25 H Creatinine 1.72 H Estimated GFR 30 L BUN/Creatinine Ratio 14.5 Glucose 144 H Calcium 8.9 Magnesium 1.9 Total Bilirubin 0.6 AST 23 ALT 22 Alkaline Phosphatase 205 H Total Creatine Kinase CK-MB (CK-2) CK-MB (CK-2) Rel Index Troponin I C-Reactive Protein NT-Pro-B Natriuret Pep 4550 H Total Protein 6.8 Albumin 4.1 Globulin 2.7 Albumin/Globulin Ratio 1.5 TSH 0.31 L Free T4 1.58 Urine RBC Urine WBC Ur Squamous Epith Cells Urine Bacteria Ur Culture Indicated? SARS-CoV-2 (PCR) [facility] Medical History Atypical migraine Bilateral lower extremity edema Chicken pox (~1951) Chronic adrenal insufficiency Chronic anticoagulation Chronic back pain (~1964) Chronic diarrhea Chronic kidney disease Fecal incontinence (~2021) Headache (~2021) Hearing loss (~2011) History of DVT (deep vein thrombosis) History of kidney disease (~2002) Hyperlipidemia Hypertension Interstitial lung disease Irritable bowel syndrome (~2012) Measles (~1951) Mixed hyperlipidemia Mumps (~1951) 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 Stage 3b chronic kidney disease (CKD) Uses walker Venous (peripheral) insufficiency Surgical History Anesthesia History of back surgery (~2012) History of throat surgery (~1974) Family History Father Cancer History of heart disease Mother Hypertension Social History household members: spouse Tobacco & Substance Use Smoking Status: Never smoker alcohol intake: current Assessment & Plan Assessment and plan (1) Acute exacerbation of chronic low back pain: Status: Acute (2) Sacral insufficiency fracture: Status: Acute Plan: bilateral sacral insufficiency fractures, insufficiency fractures osteoporotic fractures. Patient has not had a DEXA scan in recent memory. Has been on chronic steroids. Has multiple age lumbar compression fractures. Conservative treatment for sacral ala fractures is pain control physical therapy mobilization with assistive devices and activity modification. Recommend assessing vitamin-D level. Patient does take 5000 per day unknown cur rent level. Recommend calcitonin nasal spray. Has chronic kidney disease and takes Coumadin unable to take anti-inflammatories. Consider steroid taper to help with pain control and symptoms. Consider narcotic pain management. Patient has been on Percocet chronically due to her pain. recommend DEXA scan and with osteoporosis referral to endocrinology if indicated for management of treatment options for severe osteoporosis with multiple medical comorbidities. Discussed briefly with the patient and family these can include bisphosphonates or intravenous or injection options and all have different side effect profiles. But these are helpful for healing and provision of new fractures. I do not see any current emergent surgical indications. Does have some complaints of chronic urinary frequency no irritation or burning. Has had loose stools but improved with Imodium after seeing GI 3 weeks ago. Consider outpatient evaluation with Interventional spine consider PAOLO or foraminal injections and if no relief referral to spine surgery Examination demonstrates no focal neurologic dysfunction she has some weakness limited by pain with straight leg raise on the right side reproducing low back and pelvis pain she got no substantial relief from greater trochanteric bursa injections with Dr. Mccann a few weeks ago. Her right total hip arthroplasty found to be radiographically and clinically functioning normally. With her worsening mobility over the last week this is most likely consistent with the sacral ala insufficiency fractures, Superimposed in the face of her chronic lumbar degenerative changes. (3) Osteoporosis with pathological fracture: Status: Acute (4) Spinal stenosis of lumbar region: Status: Acute Assessment & Plan narrative: See above. Patient has complications related to osteoporosis with insufficiency fractures both acute and chronic with the worsening mobilization inability to ambulate with her walker which she was previously doing at home. Requiring hospitalization management for pain control mobilization. Additional treatment for her supratherapeutic INR and medical comorbidities with the internal medicine teams. No acute orthopedic surgical intervention is indicated at this time, however, the patient needs medical treatment of her osteoporosis and symptomatic insufficiency fractures with therapy mobilization using assistive devices pain control consider calcitonin, DEXA scan, vitamin-D level outpatient Endocrine for oral for osteoporosis treatment and consideration outpatient interventional s [place] referral consideration PAOLO and if fails consider spinal surgery evaluation 1. Order for vitamin-D level placed 2. order for DEXA scan placed- quantifying level of osteoporosis will help facilitate osteoporotic care endocrine consultation and medical treatment of osteoporosis and insufficiency fractures In this patient with multiple medical comorbidities including decreased kidney function and need for chronic anticoagulation. medically complex patient with multiple comorbidities and acute insufficiency fractures chronic severe osteoporosis with increasing pain uncontrolled at home and failure of mobilization requiring hospitalization. greater than 50 minutes were spent with the patient discussing their diagnoses fractures multiple medical comorbidities , reviewing notes, reviewing treatment options, reviewing images anesthetics, independent interpretation of MRI and Docume ntation and use of independent historian. Time Spent With Patient Time with patient: 50 to 69 minutes with 50% spent counseling/coordinating care
[2022-07-09] MEDS: OXYCODONE/ACETAMINOPHEN 5/325 TABLET 1 TAB PO ×2 (12:58→17:54)
[2022-07-09 14:24] LABS: Vitamin D 25 Hydroxy (D3) 81.9 ng/mL (30.0-100.0)
--- NOTE | 2022-07-09 14:53 | PM.PN.1 ---
Subjective Subjective Date Patient Seen: 07/09/22 Interval history: 76 yo adm with exacerbation of chronic low back pain. Reviewed MRI and orhto consult. Pt has sacral insufficiency fracures, chronic lumbar comp fx, lumbar stenosis. Rec conservative mgmt. Pt reports sev low back pain and unable to mobilize out of bed. Tingling in legs. Exam Vital Signs (past 8 hours): - 07/09/22 08:56 07/09/22 08:00 07/09/22 08:00 Temperature Pulse Rate 94 H 71 Respiratory Rate 30 H Blood Pressure 157/101 H 169/76 H Blood Pressure [Left Arm] Pulse Oximetry 94 Oxygen Delivery Method 07/09/22 08:53 07/09/22 08:53 07/09/22 11:16 Temperature 97.5 F L Pulse Rate 80 Respiratory Rate 29 H Blood Pressure 157/101 H 143/67 H Blood Pressure [Left Arm] Pulse Oximetry 93 Oxygen Delivery Method Room Air 07/09/22 11:16 07/09/22 11:47 07/09/22 12:00 Temperature Pulse Rate 74 73 52 L Respiratory Rate 20 Blood Pressure Blood Pressure [Left Arm] 143/67 H Pulse Oximetry 96 92 97 Oxygen Delivery Method Room Air Room Air 07/09/22 12:56 07/09/22 12:56 07/09/22 14:00 Temperature Pulse Rate 81 65 Respiratory Rate Blood Pressure 153/63 H Blood Pressure [Left Arm] Pulse Oximetry 96 97 Oxygen Delivery Method Room Air Oxygen Delivery Method Room Air Narrative Exam Narrative: Gen: alert, calm, cooperative Ext: chronic venous stasis edema LEs Neuro: able to raise legs--gets pain upper hamstrings L>R Objective Labs 07/09/22 06:10 07/09/22 06:10 Labs: Laboratory Results - last 24 hr 07/08/22 07/08/22 07/08/22 16:05 16:05 16:25 WBC 10.5 RBC 4.61 Hgb 14.1 Hct 43.2 MCV 93.6 MCH 30.6 MCHC 32.7 RDW 15.7 H Plt Count 135 L Neut % (Auto) 76.2 H Lymph % (Auto) 16.2 L [place] % (Auto) 6.8 Eos % (Auto) 0.3 L Baso % (Auto) 0.5 Neut # (Auto) 8000 H Lymph # (Auto) 1700 [place] # (Auto) 700 Eos # (Auto) 0 Baso # (Auto) 0 PT 44.3 H INR 3.8 H Sodium Potassium Chloride Carbon Dioxide BUN Creatinine Estimated GFR BUN/Creatinine Ratio Glucose Calcium Magnesium Total Bilirubin AST ALT Alkaline Phosphatase Total Creatine Kinase CK-MB (CK-2) CK-MB (CK-2) Rel Index Troponin I C-Reactive Protein 1.7 H NT-Pro-B Natriuret Pep Total Protein Albumin Globulin Albumin/Globulin Ratio 25-OH Vitamin D Total TSH Free T4 Urine RBC Urine WBC Ur Squamous Epith Cells Urine Bacteria Ur Culture Indicated? SARS-CoV-2 (PCR) 07/08/22 07/08/22 07/08/22 16:25 16:25 16:25 WBC RBC Hgb Hct MCV MCH MCHC RDW Plt Count Neut % (Auto) Lymph % (Auto) [place] % (Auto) Eos % (Auto) Baso % (Auto) Neut # (Auto) Lymph # (Auto) [place] # (Auto) Eos # (Auto) Baso # (Auto) PT INR Sodium 143 Potassium 5.0 Chloride 110 H Carbon Dioxide 24 BUN 26 H Creatinine 1.67 H Estimated GFR 31 L BUN/Creatinine Ratio 15.6 Glucose 158 H Calcium 9.2 Magnesium 2.1 Total Bilirubin 0.5 AST 24 ALT 23 Alkaline Phosphatase 220 H Total Creatine Kinase 27 L CK-MB (CK-2) TNP CK-MB (CK-2) Rel Index TNP Troponin I 0.015 C-Reactive Protein NT-Pro-B Natriuret Pep 4380 H Total Protein 6.3 Albumin 3.8 Globulin 2.5 Albumin/Globulin Ratio 1.5 25-OH Vitamin D Total TSH Free T4 Urine RBC Urine WBC Ur Squamous Epith Cells Urine Bacteria Ur Culture Indicated? SARS-CoV-2 (PCR) 07/08/22 07/08/22 07/09/22 18:07 19:50 06:10 WBC 9.9 RBC 4.87 Hgb 14.8 Hct 45.3 MCV 93.0 MCH 30.3 MCHC 32.6 RDW 15.7 H Plt Count 142 L Neut % (Auto) 81.1 H Lymph % (Auto) 16.6 L [place] % (Auto) 2.2 L Eos % (Auto) 0.0 L Baso % (Auto) 0.1 Neut # (Auto) 8000 H Lymph # (Auto) 1600 [place] # (Auto) 200 Eos # (Auto) 0 Baso # (Auto) 0 PT INR Sodium Potassium Chloride Carbon Dioxide BUN Creatinine Estimated GFR BUN/Creatinine Ratio Glucose Calcium Magnesium Total Bilirubin AST ALT Alkaline Phosphatase Total Creatine Kinase CK-MB (CK-2) CK-MB (CK-2) Rel Index Troponin I C-Reactive Protein NT-Pro-B Natriuret Pep Total Protein Albumin Globulin Albumin/Globulin Ratio 25-OH Vitamin D Total TSH Free T4 Urine RBC 5-10/hpf H Urine WBC 0-1/hpf Ur Squamous Epith Cells 0-1 /hpf Urine Bacteria None seen Ur Culture Indicated? Cult not indicated SARS-CoV-2 (PCR) Negative 07/09/22 07/09/22 07/09/22 06:10 06:10 06:10 WBC RBC Hgb Hct MCV MCH MCHC RDW Plt Count Neut % (Auto) Lymph % (Auto) [place] % (Auto) Eos % (Auto) Baso % (Auto) Neut # (Auto) Lymph # (Auto) [place] # (Auto) Eos # (Auto) Baso # (Auto) PT 40.3 H INR 3.5 H Sodium 142 Potassium 3.8 D Chloride 103 Carbon Dioxide 29 BUN 25 H Creatinine 1.72 H Estimated GFR 30 L BUN/Creatinine Ratio 14.5 Glucose 144 H Calcium 8.9 Magnesium 1.9 Total Bilirubin 0.6 AST 23 ALT 22 Alkaline Phosphatase 205 H Total Creatine Kinase CK-MB (CK-2) CK-MB (CK-2) Rel Index Troponin I C-Reactive Protein NT-Pro-B Natriuret Pep 4550 H Total Protein 6.8 Albumin 4.1 Globulin 2.7 Albumin/Globulin Ratio 1.5 25-OH Vitamin D Total TSH 0.31 L Free T4 1.58 Urine RBC Urine WBC Ur Squamous Epith Cells Urine Bacteria Ur Culture Indicated? SARS-CoV-2 (PCR) 07/09/22 06:10 WBC RBC Hgb Hct MCV MCH MCHC RDW Plt Count Neut % (Auto) Lymph % (Auto) [place] % (Auto) Eos % (Auto) Baso % (Auto) Neut # (Auto) Lymph # (Auto) [place] # (Auto) Eos # (Auto) Baso # (Auto) PT INR Sodium Potassium Chloride Carbon Dioxide BUN Creatinine Estimated GFR BUN/Creatinine Ratio Glucose Calcium Magnesium Total Bilirubin AST ALT Alkaline Phosphatase Total Creatine Kinase CK-MB (CK-2) CK-MB (CK-2) Rel Index Troponin I C-Reactive Protein NT-Pro-B Natriuret Pep Total Protein Albumin Globulin Albumin/Globulin Ratio 25-OH Vitamin D Total 81.9 TSH Free T4 Urine RBC Urine WBC Ur Squamous Epith Cells Urine Bacteria Ur Culture Indicated? SARS-CoV-2 (PCR) PFSH Medical History Atypical migraine Bilateral lower extremity edema Chicken pox (~1951) Chronic adrenal insufficiency Chronic anticoagulation Chronic back pain (~1964) Chronic diarrhea Chronic kidney disease Fecal incontinence (~2021) Headache (~2021) Hearing loss (~2011) History of DVT (deep vein thrombosis) History of kidney disease (~2002) Hyperlipidemia Hypertension Interstitial lung disease Irritable bowel syndrome (~2012) Measles (~1951) Mixed hyperlipidemia Mumps (~1951) 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 Stage 3b chronic kidney disease (CKD) Uses walker Venous (peripheral) insufficiency Surgical History Anesthesia History of back surgery (~2012) History of throat surgery (~1974) Family History Father Cancer History of heart disease Mother Hypertension Social History household members: spouse Smoking Status: Never smoker alcohol intake: current Assessment & Plan Assessment & Plan narrative: 1. Acute exacerbation of low back pain -multifactorial with lumbar MRI showing multi-level deg disc dz and spinal stenosis, multiple non-acute vertebral comression fx, and bilat sacral insuff fx -appreciate ortho consult -cont Percocet 1 tab q4h prn -calcitonin nasal spray -lido patch -PT/OT -consider outpatient PAOLO 2. Osteoporosis, steroid induced -DEXA ordered by Ortho -rec outpatient treatment 3. Chronic venous insufficiency, bilateral LE -prev ECHO 03/08/22 EF 60-65%, elev BNP not representing CHF -d/c furosemide as unlikely to help and may worsen renal insuffiency -elevate legs, prev did not tolerate comp hose 4. Autoimmune dz, interstial lung dz, microscopic polyangiitis -cont pred 5 mg daily 5. CKD, stage 4 -stable, eGFR within range of past values -avoid NSAIDs, other nephrotoxic agents 6. Supratherapeutic INR on warfarin -hx DVT -held warfarin, restart 1 mg daily on 07/09/22 7. Hypothyroidism -TSH 0.31 -cont levo 100 mcg qd 8. Atypical migraines, depression -cont topiramate, sertraline 9. Acute hypertension -secondary to pain -BPs improved, stop carvedilol 10. PACs -can d/c tele
--- NOTE | 2022-07-09 16:02 | CM.IDA ---
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 Patient was admitted due to Acute exacerbation of chronic low back pain, sacral fractures, spinal stenosis and medically complex comorbidities. Patient's PCP is Dr. Garcia, Patient has [facility] [employer] insurance. Patient has hx of hypertension, hyperlipidemia, chronic hip pain, autoimmune disease, chronic kidney disease stage 4, hypothyroidism, reflux, prior DVT currently anticoagulated on Coumadin, bilateral lower extremity edema, lumbar canal stenosis, L2 compression fracture, osteoporosis, prior lumbar laminectomy, right hip arthroplasty, left venous insufficiency, and pulmonary fibrosis. DIE MAKER STAMPING enters room to meet with patient. Patient presents as A/Ox3. Patient endorses she lives with sposue in [place]. Patient endorses that at baseline she uses a FWW and her spouse is her primary caregiver that assists her with housework, shopping, meal prep as well as toileting and showering. Patient endorses she receives rides from others. Patient endorses her daughter is an [employer] CO[employer] and lives near by and checks in regularly. Patient endorses since her back seized up and she has been unable to stand or ambulate since then. Patient endorses recent GLF a week or so ago. Patient endorses hx of SNF rehab at [facility] twice and hx of HH but she does not recall which agency. Spouse enters room and does not recall HH agency either. Patient endorses recent hx of outpatient PT but endorses she stopped going recently. DIE MAKER STAMPING discusses SNF and HH. Patient endorses preference to d/c to home with HH, patient does not endorse HH preference. Patient has yet to work with PT and OT, patient states if SNF rehab is recommended she would agree to go with preference of [facility]. DIE MAKER STAMPING calls Anisha at [facility] regarding patient, Anisha endorses she will review patient. Plan: Patient admitted for further treatment and evaluation, pending PT/OT. DCP to f/u with POC. HH referral vs. SNF referral at [facility]. RAMON More Discharge Planning/Care Management CM Discharge Assessment Start: 07/09/22 14:20 Freq: Status: Active Protocol: Document 07/09/22 15:53 LN (Rec: 07/09/22 16:02 LN [id number]) Discharge Planning Assessment Assigned Cinder Worker RAMON Roach DPOA/Assigned Designee Name Bill/ Spouse Contact Information [phone] Advance Directives? No History Provided By Patient,Significant Other, Medical Record Has Patient been admitted in last 30 No days? Prior Living Arrangements House Household Members spouse Type of transporation used prior to Relies on Others admit Independent with ADL's No Is patient alert and oriented? Yes Needs Assistance With Bathing,Meal Prep,Toileting, Managing Medications,Home Chores / Shopping Caregiver for Another No DME Already Rented / Owned Wheelchair,FWW / Walker Comment Patient states she uses FWW at baseline Patient/Family Preference Alf Facility,Home with Home Health Comment HH vs. SNF rehab dependent on needs and recommendation Additional Comment HH vs. SNF rehab Medicare Choice List Provided Yes SNF/HH Preference No preference reported for HH [facility] is primary preference for SNF rehab Has Agency SNF been contacted Yes Please Provide Date Initial DC 07/09/22 Assessment Was Performed
--- NOTE | 2022-07-09 16:17 | PT-IP ANOTE ---
Physical therapy order received and chart reviewed. Pt is currently getting admitted by nursing and not available for physical therapy evaluation. Will continue to follow when pt able to participate.
[2022-07-09] MEDS: WARFARIN 1 MG TABLET PO (17:54)
[2022-07-09] MEDS: ATORVASTATIN 20 MG TABLET 10 MG PO (21:19)
[2022-07-09] MEDS: TOPIRAMATE 25 MG TABLET 50 MG PO (21:20)
[2022-07-10] VITALS: BP 138/59; PULSE 48; RESP 16; TEMP 36.2; O2SAT 94
[2022-07-10 05:33] LABS: INR 3.8 (0.9-1.3)
[2022-07-10 06:00] VITALS: BP 153/72; PULSE 60; RESP 17; TEMP 36.3; O2SAT 93
[2022-07-10] MEDS: LEVOTHYROXINE 100 MCG TABLET PO (06:02)
[2022-07-10 08:19] LABS: Add Manual Diff / Slide Review NO; Basophils Absolute Auto 0 /uL (0-100); Basophils Percent Auto 0.3 % (0-2); Eosinophils Absolute Auto 0 /uL (0-450); Eosinophils Percent Auto 0.1 % (2-4); Hematocrit 42.8 % (36-46); Hemoglobin 13.7 g/dL (12.0-16.0); Lymphocytes Absolute Auto 3500 /uL (1100-4500); Lymphocytes Percent Auto 25.1 % (25-40); Mean Corpuscular Hemoglobin 29.6 PG (26-34); Mean Corpuscular Volume 92.4 fL (80-100); Monocytes Absolute Auto 1400 /uL (0-900); Monocytes Percent Auto 9.8 % (3-14); Neutrophils Absolute Auto 9100 /uL (1500-7000); Neutrophils Percent Auto 64.7 % (50-75); Platelet Count 146 X10^3/uL (150-400); Red Blood Cell Count 4.63 X10^6/uL (4.0-5.2); Red Cell Distribution Width 15.9 % (11.6-14.8); White Blood Cell Count 14.1 X10^3/uL (4.5-11.0)
[2022-07-10 08:32] LABS: BUN Creatinine Ratio 22.4 (6-22); Blood Urea Nitrogen 39 mg/dL (7-17); Calcium 8.9 mg/dL (8.4-10.2); Carbon Dioxide 28 mmol/L (22-32); Chloride 107 mmol/L (98-107); Estimated Glomerular Filt Rate 30 mL/min (>60); Glucose 96 mg/dL (80-110); HEMOLYSIS < 15 (0-50); Potassium 3.6 mmol/L (3.4-5.1); Sodium 143 mmol/L (137-145)
[2022-07-10] MEDS: LIDOCAINE PATCH 1 EACH ADH..PATCH TOP (08:33)
[2022-07-10] MEDS: SERTRALINE 50 MG TABLET 100 MG PO (08:33)
[2022-07-10] MEDS: POTASSIUM CHLORIDE 20 MEQ TAB PO (08:33)
[2022-07-10] MEDS: predniSONE 5 MG TABLET PO (08:33)
--- NOTE | 2022-07-10 09:43 | P.PN_ITS ---
Subjective Subjective Date Patient Seen: 07/10/22 Time Patient Seen: 09:43 Interval history: 76-year-old female with lumbar stenosis multilevel spondylosis and subacute L2 compression fracture. Chronic T11 through L1 compression fractures and history of total hip replacement. With acute appearing bilateral sacral ala insufficiency fractures Presented with increased back pain difficulty with ambulation and weakness. Uses walker at baseline. Unable to take anti-inflammatories due to kidney insufficiency Seen in her hospital room today. Reports better pain control than yesterday. Sitting up eating breakfast. Has not yet worked with physical therapy. Exam Vital Signs (past 8 hours): - 07/10/22 06:00 07/10/22 07:00 Temperature 97.3 F L Pulse Rate 60 Respiratory Rate 17 Blood Pressure 153/72 H Pulse Oximetry 93 Oxygen Delivery Method Room Air Oxygen Flow Rate 0 Oxygen Delivery Method Room Air Oxygen Flow Rate 0 Narrative Exam Narrative: Alert oriented no acute distress HEENT normocephalic atraumatic Respiratory unlabored on room Heart regular rate exam Stanley in place with yellow urine. Musculoskeletal exam Demonstrates 5/5 dorsiflexion plantar flexion bilateral lower extremities. Discomfort hip and low back with straight leg raise. Palpable pulses. Objective Labs 07/10/22 08:10 07/10/22 08:10 Labs: Laboratory Results - last 24 hr 07/09/22 07/10/22 07/10/22 06:10 04:54 08:10 WBC 14.1 H RBC 4.63 Hgb 13.7 Hct 42.8 MCV 92.4 MCH 29.6 MCHC 32.0 RDW 15.9 H Plt Count 146 L Neut % (Auto) 64.7 Lymph % (Auto) 25.1 [place] % (Auto) 9.8 Eos % (Auto) 0.1 L Baso % (Auto) 0.3 Neut # (Auto) 9100 H Lymph # (Auto) 3500 [place] # (Auto) 1400 H Eos # (Auto) 0 Baso # (Auto) 0 PT 44.0 H INR 3.8 H Sodium Potassium Chloride Carbon Dioxide BUN Creatinine Estimated GFR BUN/Creatinine Ratio Glucose Calcium 25-OH Vitamin D Total 81.9 07/10/22 08:10 WBC RBC Hgb Hct MCV MCH MCHC RDW Plt Count Neut % (Auto) Lymph % (Auto) [place] % (Auto) Eos % (Auto) Baso % (Auto) Neut # (Auto) Lymph # (Auto) [place] # (Auto) Eos # (Auto) Baso # (Auto) PT INR Sodium 143 Potassium 3.6 Chloride 107 Carbon Dioxide 28 BUN 39 H Creatinine 1.74 H Estimated GFR 30 L BUN/Creatinine Ratio 22.4 H Glucose 96 Calcium 8.9 25-OH Vitamin D Total vitamin-D level appropriate at 81 PFSH Medical History Atypical migraine Bilateral lower extremity edema Chicken pox (~1951) Chronic adrenal insufficiency Chronic anticoagulation Chronic back pain (~1964) Chronic diarrhea Chronic kidney disease Fecal incontinence (~2021) Headache (~2021) Hearing loss (~2011) History of DVT (deep vein thrombosis) History of kidney disease (~2002) Hyperlipidemia Hypertension Interstitial lung disease Irritable bowel syndrome (~2012) Measles (~1951) Mixed hyperlipidemia Mumps (~1951) 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 Stage 3b chronic kidney disease (CKD) Uses walker Venous (peripheral) insufficiency Surgical History Anesthesia History of back surgery (~2012) History of throat surgery (~1974) Family History Father Cancer History of heart disease Mother Hypertension Social History household members: spouse Smoking Status: Never smoker alcohol intake: current Assessment & Plan Assessment and plan (1) Spinal stenosis of lumbar region: Status: Acute (2) Osteoporosis with pathological fracture: Status: Acute (3) Sacral insufficiency fracture: Status: Acute (4) Acute exacerbation of chronic low back pain: Status: Acute Assessment & Plan narrative: Exacerbated low back and pelvic pain. Acute bilateral sacral insufficiency fractures. Subacute L2 compression fracture chronic spondylosis and lumbar stenosis. No current red flag signs of cauda equina. Pain appears better controlled today. Based on history and imaging findings most symptoms likely involve sacral insufficiency fractures. Treatment for this is conservative with pain control therapy assistive devices and osteoporosis treatment. Recommend DEXA scan and endocrine referral for osteoporosis treatment. Vitamin D level is appropriate now she has been getting 5000 units daily. But has had multiple insufficiency fractures and compression fractures. Can also consider outpatient PAOLO for lumbar stenosis or fails this, spinal surgery referral Time Spent With Patient Time with patient: less than 30 minutes Quality VTE Deep Vein Thrombosis/Pulmonary Embolism Present on Admission: No
[2022-07-10 11:08] VITALS: BP 140/77; PULSE 70; RESP 16; TEMP 36.6; O2SAT 95
--- NOTE | 2022-07-10 11:40 | PT.IIE ---
Current Diagnoses Other chronic pain (07/08/22) Spinal stenosis, lumbar region without neurogenic claudication (07/08/22) Low back pain, unspecified (07/08/22) Age-related osteoporosis with current pathological fracture, unspecified site, initial encounter for fracture (07/08/22) Pathological fracture, other site, initial encounter for fracture (07/08/22) Surgical History (Last Reviewed 07/09/22 @ 01:27 by Beverley Pendleton [facility]-) Anesthesia History of back surgery (~2012) History of throat surgery (~1974) Medical History (Last Reviewed 07/09/22 @ 01:27 by TAMERA AndinoP-) Atypical migraine Bilateral lower extremity edema Chicken pox (~1951) Chronic adrenal insufficiency Chronic anticoagulation Chronic back pain (~1964) Chronic diarrhea Chronic kidney disease Fecal incontinence (~2021) Headache (~2021) Hearing loss (~2011) History of DVT (deep vein thrombosis) History of kidney disease (~2002) Hyperlipidemia Hypertension Interstitial lung disease Irritable bowel syndrome (~2012) Measles (~1951) Mixed hyperlipidemia Mumps (~1951) 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 Stage 3b chronic kidney disease (CKD) Uses walker Venous (peripheral) insufficiency Physical Therapy Inpatient Evaluation/Re-Eval M1 PT/OT-IP Prior Functional Status Start: 07/10/22 12:31 Freq: NEEDED Status: Active Protocol: Document 07/10/22 11:40 DLM (Rec: 07/10/22 12:55 DLM [id number]) Medical Review Prior Functional Status Medical History Reviewed Yes Diet/Fluid Consistency Regular Communication WFL Mobility and Gait Independent for household ambulation with 4WW, uses wheelchair for longer distances due to back and right hip pain Activities of Daily Living and IADL's Independent with basic ADL's. She has assistance for household tasks/chores. Her helps her manage her medications. Social History Household Members spouse Living Arrangements House Number of Floors (Floors) One Floor Number of Stairs To Enter/Railing? ramp Home Environment Standard Height Toilet,Tub/ Shower Home Equipment Four Wheel Walker,Tub Transfer Bench,Hand Held Shower,Grab Bars In Shower Employment Status Retired Additional Social History Comment She reports her Spouse has been able to help her. She reports her Son is about to move to [place] for a job and she is worried that he will not be local to help. She has a Daughter who is also supportive. M2 PT-IP Current Condition Start: 07/10/22 12:31 Freq: NEEDED Status: Active Protocol: Document 07/10/22 11:40 DLM (Rec: 07/10/22 12:55 DLM [id number]) Physical Therapy Current Condition Current Condition Evaluation Date 07/10/22 Treatment Diagnosis Back pain, spinal fx's and sacral fx, impaired mobility/ gait Onset Date 07/08/22 M3 PT-IP Subjective Start: 07/10/22 12:31 Freq: NEEDED Status: Active Protocol: Document 07/10/22 11:40 DLM (Rec: 07/10/22 12:55 DL [id number]) Subjective Physical Therapy Visit Type Type Initial Evaluation Visit Start Time 11:00 Visit Stop Time 11:40 Total Visit Minutes 40 Number of LAND MANAGEMENT FORESTER Visits 0 Physical Therapy Visit Comments Patient Comments She reports her pain is better today. She is not clear why her pain got worse at home. She takes Tylenol and Percocet at home to manage her back pain. Patient Goals Be able to return home Therapy Pain Assessment Pain When Pain Assessed After Treatment Pain Present Pain Present Pain Reported Location Lower Back Intensity 3 Scale Used Numeric (0 - 10) Description Aching,Stabbing,With Movement Pain Behaviors Facial Grimacing,Guarding Pain Management Techniques Re-positioning,Timing of Activity with Medications M4 PT-IP Mobility and Gait Start: 07/10/22 12:31 Freq: NEEDED Status: Active Protocol: Document 07/10/22 11:40 DLM (Rec: 07/10/22 12:55 DL [id number]) PT-Bed Mobility Assessment Rolling Type of Rolling Log Rolling Level of Assist Standby Assistance Supine to Sit Supine to Sit Standby Assistance,Bedrails Sit to Supine Sit to Supine Minimal Assistance,Bedrails Scooting Scooting to Edge of Bed Standby Assistance PT-Transfer Assessment Sit to and From Stand Sit to and from Stand Contact Guard Assistance,Use of Upper Extremities Equipment Transfer Assistive Device Gait Belt,Front Wheeled Walker Transfers Transfer Destination Bed Transfer Technique Stand Step Pivot Transfer Ability Level of Assist Contact Guard Assistance,Use of Upper Extremities Comments Mobility Comments She moves slowly to manage her pain. She gets intermittent grabbing pains in her low back when moving. She reports sit to stand is less painful if she does a 1-3 count before she stands. Pt keeps both hands on the FWW during sit to stand. She reaches her UE's back before sitting down. Gait Assessment Gait Gait Assistance Required: Contact Guard Assist Distance (Feet) 25 Assistive Devices Assistive Device Gait Belt,Front Wheeled Walker Gait Deviations General Gait Pattern Antalgic,Decreased Stride Length,Step-to Gait Factors Limiting Gait Function Factors Limiting Gait Function Decreased Activity Tolerance, Decreased Strength,Limited Range of Motion,Pain,Poor Balance Comments Gait Comments She has trendelenburg on right during gait causing a step to gait pattern. She reports feeling tired after gait and requests back to bed. Her pace of gait is slow but functional. She declined to stay up in the chair this visit and wanted to rest in bed where she feels her pain is less. Stair Climbing Assessment Comments Stair Climbing Comments ramp to enter house PT-Balance Assessment Sitting Balance and Reactions Static Sitting Balance Ability Good Dynamic Sitting Balance Ability Good Standing Balance and Reactions Static Standing Balance Ability Good Dynamic Standing Balance Ability Fair Device Used FWW Comments Other Balance Tests/Deviations/Treatment her standing balance is : limited by her back pain with reaching and moving M5 PT-IP Objective Assessments Start: 07/10/22 12:31 Freq: NEEDED Status: Active Protocol: Document 07/10/22 11:40 DLM (Rec: 07/10/22 12:55 DL [id number]) Orientation Orientation/Cognition Level of Alertness Alert Orientation Name,Age,Birthday,Month,Date, Year,Day of Week,Place, Situation Language Function Ability No Deficits Noted Safety Awareness Understands Safety Issues Memory Description No Deficits Noted Gross Range of Motion Upper Extremity ROM Assessment Bilaterally Impaired Impairments right shoulder flexion to 80 degrees actively and 110 degrees passively left shoulder flexion to 90 degrees actively and 100 degrees passively she reports pain in bilateral shoulders Lower Extremity ROM Assessment Within Functional Limits Impairments trunk AROM is limited by pain, did not fully assess her trunk to better manage her compression fractures Strength Upper Extremity Strength Assessment Bilaterally Impaired Shoulder flexion right 3+/5, left 4-/5 Elbow flex/ext 4+/5 Hand taping foreman right 4+/5, left 3+/5 Lower Extremity Strength Assessment Bilaterally Impaired Hip flexion right 2+/5, left 3+/5 Knee extension right 4-/5, left 3+/ 5 Ankle DF right 3+/5 with pain, left 4/5 Comments Strength Comments she reports being left handed back pain limits LE strength Coordination Assessment Gross Coordination Gross Coordination WNL Sensation Assessment Sensation Gross Sensation WNL Comments Sensation Comments she reports a hx of tingling intermittently in either LE but never both at the same time, none during this visit Muscle Tone Muscle Tone WNL Yes Other Assessments Other Other Assessments kyphotic posture M6 PT-IP Treatment Start: 07/10/22 12:31 Freq: NEEDED Status: Active Protocol: Document 07/10/22 11:40 DLM (Rec: 07/10/22 12:55 DLM [id number]) Physical Therapy Treatment Education Education Provided Precautions,Safety Other Treatments Other Treatment Performed spine precaution education provided to pt, no family present this visit M7 PT-IP Assessment and Plan Start: 07/10/22 12:31 Freq: NEEDED Status: Active Protocol: Document 07/10/22 11:40 DLM (Rec: 07/10/22 12:55 DLM [id number]) PT Summary Assessment and Plan Potential Rehabilitation Potential Good Status of Condition at Evaluation Evolving Summary Impairments Pain,ROM,Strength,Balance,Bed Mobility,Transfers,Gait, Activity Tolerance Assessment Summary Nina is alert and resting in bed. She reports a history of falls at home but she does not know why she is falling. She recalls being taught spine precautions in the past to manage her back pain. She shows good effort with therapy this visit but is cautious about increasing her pain. She moves slowly to manage her pain but is functional. She was able to ambulate a short distance in her room before returning to bed to rest. She describes her worst pain in right post hip area during gait. Her LE strength is limited at this time by her back pain. Unclear if her family can assist her at home at her current level of function. No family present today to discuss discharge issues. Pt reports she would prefer to discharge home and wants to talk to family about if a caregiver could be hired to help her. Will continue to work towards increased activity tolerance while managing her back pain. Goals Bed Mobility Goal Independent Transfer Goal Standby Assistance,Front Wheeled Walker,Four Wheeled Walker Gait Goal Standby Assistance,Front Wheel Walker,Four Wheel Walker Gait Distance 75 feet Days to Meet Goals 4 Frequency of Treatment Frequency Of Treatment Once a Day Treatment Plan Physical Therapy Treatment Plan Bed Mobility Training,Transfer Training,Gait Training, Therapeutic Exercise,Balance Retraining,Discharge Planning, Hot or Cold Pack,Neuromuscular Re-ed Other Recommendations and Next Treatment assess if back brace would Focus help if her pain limits functional mobility Precautions Lumbar Precautions Log Roll,No Twisting,Limit Bending,Lifting Restriction of 10 lbs Other Precautions use spine precautions to manage her compression fractures and osteoporosis she has multiple fx's in thoracic spine and lumbar spine as well as new sacral insufficiency fractures Weight Bearing Status Weight Bearing Status Weight Bear as Tolerated Recommendations To Nursing Amount of Assist Needed 1 Person Assist Discharge Recommendations PT Discharge Recommendations Home vs SNF Other Discharge Recommendations will need SNF if family can not assist her at home Pt wants to talk to her family about going home with a hired caregiver instead of going to SNF Transportation Needs at Discharge Private Vehicle
[2022-07-10 17:22] VITALS: BP 130/68; PULSE 65; RESP 15; TEMP 36.6; O2SAT 96
--- NOTE | 2022-07-10 19:04 | P.PN_ITS ---
Subjective Subjective Interval history: 76-year-old female with lumbar stenosis, multilevel spondylosis, subacute L2 compression fracture, chronic T11 through L1 compression fractures, prior total hip replacement, admitted with increasing lower back pain in the setting of bilateral sacral ala insufficiency fractures. Patient reports she is doing a bit better today. She is been able to sit up to eat her meals. She worked with Physical therapy today with recommendation for residential facility. However, patient hopes to be able to return home with paid caregivers and home health. She is planning to visit with her family to discuss the feasibility of it. She notes that her is 80 years old and she does not want to make any decision that may make his condition worse. Exam Vital Signs (past 8 hours): - 07/10/22 11:08 07/10/22 17:22 Temperature 97.9 F 98 F Pulse Rate 70 65 Respiratory Rate 16 15 Blood Pressure 140/77 130/68 Pulse Oximetry 95 96 Oxygen Flow Rate 0 0 Oxygen Delivery Method Room Air Oxygen Flow Rate 0 Narrative Exam Narrative: GEN: Pleasant elderly female, Alert and oriented x 3, NAD HEENT:NC, Face symmetric CHEST: Respiratory excursions symmetric, CTAB CV: RRR, no M/R/G ABD: Soft, NT/ND, BT present in all 4 quadrants, no organomegaly or masses EXTR: warm, well perfused, no C/C/E SKIN: warm and dry, no rash NEURO: Alert and oriented x 3, nonfocal Objective Labs 07/10/22 08:10 07/10/22 08:10 Labs: Laboratory Results - last 24 hr 07/10/22 07/10/22 07/10/22 04:54 08:10 08:10 WBC 14.1 H RBC 4.63 Hgb 13.7 Hct 42.8 MCV 92.4 MCH 29.6 MCHC 32.0 RDW 15.9 H Plt Count 146 L Neut % (Auto) 64.7 Lymph % (Auto) 25.1 Quay % (Auto) 9.8 Eos % (Auto) 0.1 L Baso % (Auto) 0.3 Neut # (Auto) 9100 H Lymph # (Auto) 3500 Quay # (Auto) 1400 H Eos # (Auto) 0 Baso # (Auto) 0 PT 44.0 H INR 3.8 H Sodium 143 Potassium 3.6 Chloride 107 Carbon Dioxide 28 BUN 39 H Creatinine 1.74 H Estimated GFR 30 L BUN/Creatinine Ratio 22.4 H Glucose 96 Calcium 8.9 [facility] Medical History Atypical migraine Bilateral lower extremity edema Chicken pox (~1951) Chronic adrenal insufficiency Chronic anticoagulation Chronic back pain (~1964) Chronic diarrhea Chronic kidney disease Fecal incontinence (~2021) Headache (~2021) Hearing loss (~2011) History of DVT (deep vein thrombosis) History of kidney disease (~2002) Hyperlipidemia Hypertension Interstitial lung disease Irritable bowel syndrome (~2012) Measles (~1951) Mixed hyperlipidemia Mumps (~1951) 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 Stage 3b chronic kidney disease (CKD) Uses walker Venous (peripheral) insufficiency Surgical History Anesthesia History of back surgery (~2012) History of throat surgery (~1974) Family History Father Cancer History of heart disease Mother Hypertension Social History household members: spouse Smoking Status: Never smoker alcohol intake: current Assessment & Plan Assessment & Plan narrative: 1. Chronic spondylosis/lumbar stenosis with acute sacral insufficiency fractures bilaterally secondary to pathologic fractures from osteoporosis Continue working on pain management and mobilization. Miacalcin nasal spray was ordered yesterday but is not on formulary so she has not been initiated on that yet. Orthopedic surgery consulted and recommended a DEXA scan and outpatient en docrine evaluation for osteoporosis. Working towards possible discharge plan of home health with paid caregiving if possible versus residential facility. 2. Multiple fractures related to falls, secondary to osteoporosis Plan as noted above. 3. Hypertension Overall, blood pressures are normotensive. Continue home medication. 4. CKD 4 Creatinine is stable at 1.74. GFR is 30. This is consistent with her baseline. 5. Hypothyroidism 6 history of DVT on anticoagulation with warfarin 7. 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 This is likely exacerbated her poor bone health. Continue prednisone per her baseline dosage. No need for stress dose steroids. Code status Full Prophylaxis Warfarin Disposition Pending family decision about whether her care needs can be met at home versus residential. Quality VTE Deep Vein Thrombosis/Pulmonary Embolism Present on Admission: No
[2022-07-10] MEDS: OXYCODONE/ACETAMINOPHEN 5/325 TABLET 1 TAB PO (19:36)
[2022-07-10] MEDS: ATORVASTATIN 20 MG TABLET 10 MG PO (21:02)
[2022-07-10] MEDS: SENNOSIDES 8.6 MG TABLET 17.2 MG PO (21:02)
[2022-07-10] MEDS: TOPIRAMATE 25 MG TABLET 50 MG PO (21:03)
[2022-07-11] VITALS: BP 163/70; PULSE 48; RESP 16; TEMP 36.3; O2SAT 95
[2022-07-11 05:26] LABS: INR 2.4 (0.9-1.3)
[2022-07-11 05:28] LABS: Add Manual Diff / Slide Review NO; Basophils Absolute Auto 0 /uL (0-100); Basophils Percent Auto 0.2 % (0-2); Eosinophils Absolute Auto 100 /uL (0-450); Eosinophils Percent Auto 0.5 % (2-4); Hematocrit 40.5 % (36-46); Hemoglobin 13.1 g/dL (12.0-16.0); Lymphocytes Absolute Auto 3800 /uL (1100-4500); Mean Corpuscular HGB Conc 32.4 % (30-36); Mean Corpuscular Hemoglobin 29.8 PG (26-34); Mean Corpuscular Volume 91.9 fL (80-100); Monocytes Absolute Auto 1000 /uL (0-900); Monocytes Percent Auto 9.7 % (3-14); Neutrophils Absolute Auto 5600 /uL (1500-7000); Neutrophils Percent Auto 53.6 % (50-75); Platelet Count 137 X10^3/uL (150-400); Red Blood Cell Count 4.41 X10^6/uL (4.0-5.2); Red Cell Distribution Width 15.6 % (11.6-14.8); White Blood Cell Count 10.5 X10^3/uL (4.5-11.0)
[2022-07-11 05:33] LABS: BUN Creatinine Ratio 25.7 (6-22); Blood Urea Nitrogen 38 mg/dL (7-17); Calcium 8.7 mg/dL (8.4-10.2); Carbon Dioxide 26 mmol/L (22-32); Chloride 108 mmol/L (98-107); Estimated Glomerular Filt Rate 36 mL/min (>60); Glucose 103 mg/dL (80-110); HEMOLYSIS < 15 (0-50); Potassium 3.7 mmol/L (3.4-5.1); Sodium 141 mmol/L (137-145)
[2022-07-11 06:00] VITALS: BP 166/82; PULSE 46; RESP 17; TEMP 36; O2SAT 98
[2022-07-11] MEDS: LEVOTHYROXINE 100 MCG TABLET PO (06:06)
[2022-07-11] MEDS: ACETAMINOPHEN 325 MG TABLET 650 MG PO (06:08)
[2022-07-11] MEDS: POTASSIUM CHLORIDE 20 MEQ TAB PO (08:04)
[2022-07-11] MEDS: predniSONE 5 MG TABLET PO (08:04)
[2022-07-11] MEDS: polyethylene glycoL 3350 17 GM POWD.PACK PO (08:04)
[2022-07-11] MEDS: LIDOCAINE PATCH 1 EACH ADH..PATCH TOP (08:04)
[2022-07-11] MEDS: SERTRALINE 50 MG TABLET 100 MG PO (08:04)
[2022-07-11] MEDS: CALCITONIN,SALMON, NASAL SPRAY 1 SPRAYS NASAL (08:26)
--- NOTE | 2022-07-11 08:50 | PT.IPTN ---
Current Diagnoses Other chronic pain (07/08/22) Spinal stenosis, lumbar region without neurogenic claudication (07/08/22) Low back pain, unspecified (07/08/22) Age-related osteoporosis with current pathological fracture, unspecified site, initial encounter for fracture (07/08/22) Pathological fracture, other site, initial encounter for fracture (07/08/22) Physical Therapy Treatment Note M2 PT-IP Current Condition Start: 07/10/22 12:31 Freq: NEEDED Status: Active Protocol: Document 07/10/22 11:40 DLM (Rec: 07/10/22 12:55 DLM [id number]) Physical Therapy Current Condition Current Condition Evaluation Date 07/10/22 Treatment Diagnosis Back pain, spinal fx's and sacral fx, impaired mobility/ gait Onset Date 07/08/22 M3 PT-IP Subjective Start: 07/10/22 12:31 Freq: NEEDED Status: Active Protocol: Document 07/11/22 09:23 TS (Rec: 07/11/22 09:47 TS [id number]) Subjective Physical Therapy Visit Type Type Treatment Note Visit Start Time 08:50 Visit Stop Time 09:20 Total Visit Minutes 30 Number of SOIL FIELD TECHNICIAN Visits 1 Physical Therapy Visit Comments Patient Comments Pt reports back pain at rest and increasing with mobility, feeling nauseous after BM in bathroom. Patient Goals Be able to return home. Pt understands she may need SNF rehab. Therapy Pain Assessment Pain When Pain Assessed At Rest Pain Present Pain Present Pain Reported Location Lower Back Description Aching,Stabbing,With Movement Pain Behaviors Facial Grimacing,Guarding Pain Management Techniques Re-positioning,Timing of Activity with Medications M4 PT-IP Mobility and Gait Start: 07/10/22 12:31 Freq: NEEDED Status: Active Protocol: Document 07/11/22 09:23 TS (Rec: 07/11/22 09:47 TS [id number]) PT-Bed Mobility Assessment Rolling Type of Rolling Log Rolling Level of Assist Standby Assistance Supine to Sit Supine to Sit Minimal Assistance,Bedrails Scooting Scooting to Edge of Bed Standby Assistance PT-Transfer Assessment Sit to and From Stand Sit to and from Stand Standby Assistance,Use of Upper Extremities Equipment Transfer Assistive Device Gait Belt,Front Wheeled Walker Comments Mobility Comments Log roll SBA with cues LUE handrail assist, provided cues for sequencing of LE's and shoulders. Supine to sit [place] for uprighting trunk, provided cues for UE support and LEs off EOB. Pt sat EOB without UE support, flexed posture and maintained good midline. Sit to stand SBA with BUE support on FWW. Pt stood with slight flexed posture, no signs of buckling or LOB. Pt requested to use bathroom for BM, ambulated step to gait SBA ~12 ' to toilet. She ambulated from bathroom SBA to bedside chair, reports feeling nauseous and requesting to sit down. Pt was left in bedside chair with call light nearby, all needs met, RN notified. Gait Assessment Gait Gait Assistance Required: Standby Assistance Distance (Feet) 25 Assistive Devices Assistive Device Gait Belt,Front Wheeled Walker Gait Deviations General Gait Pattern Antalgic,Decreased Stride Length,Step-to Gait Factors Limiting Gait Function Factors Limiting Gait Function Decreased Activity Tolerance, Decreased Strength,Limited Range of Motion,Pain,Poor Balance Comments Gait Comments See mobility comments. Stair Climbing Assessment Comments Stair Climbing Comments ramp to enter house PT-Balance Assessment Sitting Balance and Reactions Static Sitting Balance Ability Good Dynamic Sitting Balance Ability Good Standing Balance and Reactions Static Standing Balance Ability Good Dynamic Standing Balance Ability Fair Device Used FWW Comments Other Balance Tests/Deviations/Treatment See mobility comments. : M5 PT-IP Objective Assessments Start: 07/10/22 12:31 Freq: NEEDED Status: Active Protocol: Document 07/10/22 11:40 DLM (Rec: 07/10/22 12:55 DLM [id number]) Orientation Orientation/Cognition Level of Alertness Alert Orientation Name,Age,Birthday,Month,Date, Year,Day of Week,Place, Situation Language Function Ability No Deficits Noted Safety Awareness Understands Safety Issues Memory Description No Deficits Noted Gross Range of Motion Upper Extremity ROM Assessment Bilaterally Impaired Impairments right shoulder flexion to 80 degrees actively and 110 degrees passively left shoulder flexion to 90 degrees actively and 100 degrees passively she reports pain in bilateral shoulders Lower Extremity ROM Assessment Within Functional Limits Impairments trunk AROM is limited by pain, did not fully assess her trunk to better manage her compression fractures Strength Upper Extremity Strength Assessment Bilaterally Impaired Shoulder flexion right 3+/5, left 4-/5 Elbow flex/ext 4+/5 Hand director employee communications right 4+/5, left 3+/5 Lower Extremity Strength Assessment Bilaterally Impaired Hip flexion right 2+/5, left 3+/5 Knee extension right 4-/5, left 3+/ 5 Ankle DF right 3+/5 with pain, left 4/5 Comments Strength Comments she reports being left handed back pain limits LE strength Coordination Assessment Gross Coordination Gross Coordination WNL Sensation Assessment Sensation Gross Sensation WNL Comments Sensation Comments she reports a hx of tingling intermittently in either LE but never both at the same time, none during this visit Muscle Tone Muscle Tone WNL Yes Other Assessments Other Other Assessments kyphotic posture M6 PT-IP Treatment Start: 07/10/22 12:31 Freq: NEEDED Status: Active Protocol: Document 07/11/22 09:23 TS (Rec: 07/11/22 09:47 TS [id number]) Physical Therapy Treatment Education Education Provided Precautions,Safety Other Treatments Other Treatment Performed spine precaution education provided to pt, no family present this visit M7 PT-IP Assessment and Plan Start: 07/10/22 12:31 Freq: NEEDED Status: Active Protocol: Document 07/11/22 09:23 TS (Rec: 07/11/22 09:47 TS [id number]) PT Summary Assessment and Plan Potential Rehabilitation Potential Good Status of Condition at Evaluation Evolving Summary Impairments Pain,ROM,Strength,Balance,Bed Mobility,Transfers,Gait, Activity Tolerance Assessment Summary Pt recalled 1/3 precautions at start of session(flexing and lifting). She performed log roll SBA, supine to sit [place] for uprighting trunk from flat bed, sit to stand x2 SBA w/ FWW, ambulated SBA ~25' with step to gait. She continues to move slowly to help manage pain and continues to report increasing pain into her hips bilaterally. PT recommends SNF rehab at this time to increase bed mobility, transfers, gait and activity toelrance. Pt does not have / support at home and spouse will not be able to provide the assist she needs. Family is discussing possible caregiver but no decision has been made. Goals Bed Mobility Goal Independent Transfer Goal Standby Assistance,Front Wheeled Walker,Four Wheeled Walker Gait Goal Standby Assistance,Front Wheel Walker,Four Wheel Walker Gait Distance 75 feet Days to Meet Goals 4 Frequency of Treatment Frequency Of Treatment Once a Day Treatment Plan Physical Therapy Treatment Plan Bed Mobility Training,Transfer Training,Gait Training, Therapeutic Exercise,Balance Retraining,Discharge Planning, Hot or Cold Pack,Neuromuscular Re-ed Other Recommendations and Next Treatment Progress gait, asses carryover Focus of precautions and logroll. Precautions Lumbar Precautions Log Roll,No Twisting,Limit Bending,Lifting Restriction of 10 lbs Other Precautions use spine precautions to manage her compression fractures and osteoporosis she has multiple fx's in thoracic spine and lumbar spine as well as new sacral insufficiency fractures Weight Bearing Status Weight Bearing Status Weight Bear as Tolerated Recommendations To Nursing Amount of Assist Needed 2 Person Assist Discharge Recommendations PT Discharge Recommendations Home vs SNF Other Discharge Recommendations will need SNF if family can not assist her at home Pt wants to talk to her family about going home with a hired caregiver instead of going to SNF Transportation Needs at Discharge Private Vehicle
[2022-07-11] MEDS: OXYCODONE/ACETAMINOPHEN 5/325 TABLET 1 TAB PO ×2 (10:35→16:39)
--- NOTE | 2022-07-11 12:18 | DIET.CONS ---
Addendum entered by Morena Mitchell 07/11/22 12:22: RD agrees with consultants intern note below. Original Note: Dietary Consultation Note Admission Date: 07/08/2022 21:37 Assessment: 76 y/o F admitted for severe low back pain resulting in lower extremity weakness and urinary incontinence, HTN urgency, and supratherapeutic INR. RD consulted for BMI 28.9 and poor appetite. Met with pt, along with spouse, to discuss current diet. Pt reports minimal decrease in appetite and a 20 lb / 9.09 kg wt loss (12.7%) in 3-6 months. reports that she has not been eating much. EMR weights indicate no significant weight loss over 3-5 months (-1kg over 3 months, not significant). Diet recall does not indicate <75% of needs. No physical signs of malnutrition present per nutrition focused physical exam. Diet recall: B: ? cup coffee and apple sauce (to take pills with). Pt reports not ever being a breakfast person. L: ? a sandwich OR cheese and crackers. reports this being a big lunch. S: ice cream bar D: burritos OR spaghetti OR [employer] chicken nuggets. Ht: 157.48 cm Wt: 71.668 kg BMI: 28.9 Last BM: 07/11/22 (07/11/22 10:00) MNA: 9 Clemente Score: 20 Diet: 07/08/22 Breakfast Heart Healthy Diet Diet Modifications: Sodium Level: 2 gm Sodium Nutrition Percent Meal Consumed 15% 07/11/22 09:43 Percent Meal Consumed 100% 07/10/22 18:39 Percent Meal Consumed 50% 07/10/22 13:06 Percent Meal Consumed 25% 07/10/22 09:00 Percent Meal Consumed 75% 07/09/22 18:04 Labs: RBC 4.41 X10^6/uL (4.0-5.2) 07/11/22 04:24 Hgb 13.1 g/dL (12.0-16.0) 07/11/22 04:24 Hct 40.5 % (36-46) 07/11/22 04:24 Creatinine 1.48 mg/dL (0.52-1.04) H 07/11/22 04:24 NT-Pro-B Natriuret Pep 4550 pg/mL (<450) H 07/09/22 06:10 Nutrition Diagnosis: none at this time. Interventions: Recommend ONS when pt does not have an appetite when at home. Monitoring/Evaluations: RD consult prn. Electronically Signed by: Neema Pat 07/11/22 12:18 Clinical Dietitian [address] [id number]
--- NOTE | 2022-07-11 14:08 | OT.IP.EVAL ---
Current Diagnoses Other chronic pain (07/08/22) Spinal stenosis, lumbar region without neurogenic claudication (07/08/22) Low back pain, unspecified (07/08/22) Age-related osteoporosis with current pathological fracture, unspecified site, initial encounter for fracture (07/08/22) Pathological fracture, other site, initial encounter for fracture (07/08/22) Past Medical History (Last Reviewed 07/09/22 @ 01:27 by Beverley Pendleton [facility]) Atypical migraine Bilateral lower extremity edema Chicken pox (~1951) Chronic adrenal insufficiency Chronic anticoagulation Chronic back pain (~1964) Chronic diarrhea Chronic kidney disease Fecal incontinence (~2021) Headache (~2021) Hearing loss (~2011) History of DVT (deep vein thrombosis) History of kidney disease (~2002) Hyperlipidemia Hypertension Interstitial lung disease Irritable bowel syndrome (~2012) Measles (~1951) Mixed hyperlipidemia Mumps (~1951) 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 Stage 3b chronic kidney disease (CKD) Uses walker Venous (peripheral) insufficiency Surgical History (Last Reviewed 07/09/22 @ 01:27 [facility] Anesthesia History of back surgery (~2012) History of throat surgery (~1974) Occupational Therapy Inpatient Evaluation/Re-Eval M1 PT/OT-IP Prior Functional Status Start: 07/10/22 12:31 Freq: NEEDED Status: Active Protocol: Document 07/11/22 14:07 CGR (Rec: 07/11/22 14:19 CGR [id number]) Medical Review Prior Functional Status Medical History Reviewed Yes Diet/Fluid Consistency Regular Communication WFL Mobility and Gait Independent for household ambulation with 4WW, uses wheelchair for longer distances due to back and right hip pain Activities of Daily Living and IADL's Independent with basic ADL's. She has assistance for household tasks/chores. Her helps her manage her medications. Social History Household Members spouse Living Arrangements House Number of Floors (Floors) One Floor Number of Stairs To Enter/Railing? ramp Home Environment Standard Height Toilet,Tub/ Shower Home Equipment Four Wheel Walker,Tub Transfer Bench,Hand Held Shower,Grab Bars In Shower Employment Status Retired Additional Social History Comment She reports her Spouse has been able to help her. She reports her Son is about to move to [place] for a job and she is worried that he will not be local to help. She has a Daughter who is also supportive. M2 OT-IP Current Condition Start: 07/11/22 14:07 Freq: Status: Active Protocol: Document 07/11/22 14:07 CGR (Rec: 07/11/22 14:19 CGR [id number]) Occupational Therapy Current Condition Current Condition Evaluation Date 07/11/22 Treatment Diagnosis sacral fx Diagnosis Onset Date 07/08/22 Weight Bearing Status Weight Bearing Status Weight Bear as Tolerated M3 OT- IP Subjective and Pain Start: 07/11/22 14:07 Freq: Status: Active Protocol: Document 07/11/22 14:07 CGR (Rec: 07/11/22 14:19 CGR [id number]) OT- Subjective Occupational Therapy Visit Type Type Initial Evaluation Visit Start Time 13:45 Visit Stop Time 14:08 Total Visit Minutes 23 OT Pain Assessment Pain When Pain Assessed At Rest Pain Present Pain Present Pain Reported Location Lower Back Intensity 4 Scale Used Numeric (0 - 10) Management Techniques Distraction,Modification of Treatment,Re-positioning, Timing of Activity with Medications M4 OT- IP ADL's Start: 07/11/22 14:07 Freq: Status: Active Protocol: Document 07/11/22 14:07 CGR (Rec: 07/11/22 14:19 CGR [id number]) OT [id number] General Evaluation Self-Feeding Ability Independent Comments OT Self-Feeding Comments Attempted to see earlier while pt was eating lunch. No deficits seen. OT ADL-Grooming Comments OT Grooming Comments Unable to tolerate OT ADL-Oral Care General Eval Oral Care Ability Standby Assistance Areas of Assistance Brushing Teeth,Retrieving/Set- Up of Items Comments Oral Care Comments standing at sink but with significant increase in pain d /t the use of hands for task rather than supporting body. OT ADL-Dressing General Eval Lower Body Dressing Ability Total Assistance Areas Needing Assistance Shoes Comments OT Dressing Comments slip on shoes. OT ADL-Toileting General Evaluation Toileting Ability Total Assistance Comments OT Toileting Comments del cid OT ADL-Bathing Comments OT Bathing Comments not performed M5 OT- IP IADL's Start: 07/11/22 14:07 Freq: Status: Active Protocol: Document 07/11/22 14:07 CGR (Rec: 07/11/22 14:19 CGR [id number]) OT-Instrumental Activities of Daily Living Deficits IADL Deficits Identified Deficits Home Safety Awareness Awareness of Need for Assistance at Home Decreased Awareness Ability to Problem Solve Emergency Unable to Problem Solve Situations Medication Management Medication Management No Deficits Identified Money Management Money Management No Deficits Identified Meal Preparation Meal Preparation Caregiver Provides Assist Print Cutter Print Cutter Caregiver Provides Assist M6 OT- IP Functional Cognition Start: 07/11/22 14:07 Freq: Status: Active Protocol: Document 07/11/22 14:07 CGR (Rec: 07/11/22 14:19 CGR [id number]) Cognitive Factors Limiting Selfcare Function Cognitive Ability Level of Alertness Alert Patient Orientation Name,Age,Birthday,Month,Date, Year,Day of Week,Place, Situation Attention Span Ability Capable of Focused Attention, Capable of Sustained Attention Ability to Follow Commands Able to Follow One Step Commands OT- Vision and Hearing OT- Hearing Assessment OT- Hearing Assessment Hearing Impaired OT- Vision Assessment Visual Acuity Glasses For Reading Visual Attentiveness WFL Occular Pursuits WFL Visual Convergence WFL M7 OT- IP Mobility and Balance Start: 07/11/22 14:07 Freq: Status: Active Protocol: Document 07/11/22 14:07 CGR (Rec: 07/11/22 14:19 CGR [id number]) OT- Bed Mobility Assessment Supine to Sit Supine to Sit Assist Standby Assistance,Head of Bed Elevated,Bedrails Scooting Scooting to Edge of Bed Standby Assistance OT-Transfer Assessment Sit to and From Stand Sit to and from Stand Contact Guard Assistance, Minimal Assistance Transfers Transfer Ability Contact Guard Assistance, Minimal Assistance Technique Transfer Destination Bed,Chair Transfer Technique Stand Step Pivot Devices Transfer Assistive Devices Gait Belt,Front Wheeled Walker Comments Mobility Comments Pt ambulated from EOB to sink and then returned to chair. OT- Gait Assessment Gait Gait Assistance Required: Contact Guard Assist,Minimum Assistance Assistive Devices Assistive Device Gait Belt,Front Wheeled Walker Comments Gait Ability Comments Pt was able to walk to sink ~ 10 ft with walker but notes increased pain when using hands for tasks rather than supporting her weight on the walker. OT- Balance Assessment Sitting Balance and Reactions Static Sitting Balance Ability Good Dynamic Sitting Balance Ability Good M8 OT- IP Objective Assessments Start: 07/11/22 14:07 Freq: Status: Active Protocol: Document 07/11/22 14:07 CGR (Rec: 07/11/22 14:19 CGR [id number]) OT Gross Range of Motion Upper Extremity Range of Motion Assessment Within Functional Limits OT Strength Upper Extremity Strength Assessment Within Functional Limits Comments Strength Comments 4-/5 OT- Coordination Assessment Upper Extremity Finger to Nose Test Within Functional Limits Finger Tapping Test Within Functional Limits OT-Muscle Tone Assessment Muscle Tone WNL Yes OT Sensation Assessment Edema Edema Absent M9 OT- IP Assessment and Plan Start: 07/11/22 14:07 Freq: Status: Active Protocol: Document 07/11/22 14:07 CGR (Rec: 07/11/22 14:19 CGR [id number]) OT Summary Assessment and Plan Potential Rehabilitation Potential Good Analytic Complexity at Evaluation Moderate Summary OT Impairments Pain,Strength,Balance, Functional Mobility,Self- Feeding,Grooming,Dressing, Toileting,Bathing,Toilet Transfers,Shower Transfers, Activity Tolerance Progress Towards Goals Slow Progress due to Pain Assessment Summary Pt presents as a moderate complexity evaluation s/p admit for sacral fx. Pt is WBAT but having significant pain with movement at this time. Pt will benefit from SNF upon discharge. Recommend continued therapy services to address deficits. Goals Grooming Goal Independent Dressing Goal Independent Toileting Goal Independent Bathing Goal Independent Toilet Transfer Goal Independent Shower Transfer Goal Independent Days to Meet Goals 20 Frequency of Treatment Frequency Of Treatment Once a Day Treatment Plan OT Treatment Plan ADL Training,Functional Mobility,Patient/Family Education,Discharge Planning Other Treatment Recommendations and Next shower Treatment Focus Discharge Recommendations OT Discharge Recommendations SNF Rehab Transportation Needs at Discharge Wheelchair/Cabulance
[2022-07-11 14:43] VITALS: BP 148/66; PULSE 52; RESP 16; TEMP 37; O2SAT 95
--- NOTE | 2022-07-11 15:11 | PM.PN.1 ---
Subjective Subjective Interval history: 76-year-old female with lumbar stenosis, multilevel spondylosis, subacute L2 compression fracture, chronic T11 through L1 compression fractures, prior total hip replacement, admitted with increasing lower back pain in the setting of bilateral sacral ala insufficiency fractures. She continues to have pain particularly with ambulation and requires a lot of assistance for movement. Likely will discharge to SNF. Exam Vital Signs (past 8 hours): - 07/11/22 08:04 07/11/22 14:43 Temperature 98.6 F Pulse Rate 52 L Respiratory Rate 16 Blood Pressure 148/66 H Pulse Oximetry 95 Oxygen Delivery Method Room Air Oxygen Flow Rate 0 Oxygen Delivery Method Room Air Oxygen Flow Rate 0 Narrative Exam Narrative: GEN: Pleasant elderly female, Alert and oriented x 3, NAD HEENT:NC, Face symmetric CHEST: Respiratory excursions symmetric, CTAB CV: RRR, no M/R/G ABD: Soft, NT/ND, BT present in all 4 quadrants, no organomegaly or masses EXTR: warm, well perfused, no C/C/E SKIN: warm and dry, no rash NEURO: Alert and oriented x 3, nonfocal Objective Labs 07/11/22 04:24 07/11/22 04:24 Labs: Laboratory Results - last 24 hr 07/11/22 07/11/22 07/11/22 04:24 04:24 04:24 WBC 10.5 RBC 4.41 Hgb 13.1 Hct 40.5 MCV 91.9 MCH 29.8 MCHC 32.4 RDW 15.6 H Plt Count 137 L Neut % (Auto) 53.6 Lymph % (Auto) 36.0 [place] % (Auto) 9.7 Eos % (Auto) 0.5 L Baso % (Auto) 0.2 Neut # (Auto) 5600 Lymph # (Auto) 3800 [place] # (Auto) 1000 H Eos # (Auto) 100 Baso # (Auto) 0 PT 28.0 H D INR 2.4 H Sodium 141 Potassium 3.7 Chloride 108 H Carbon Dioxide 26 BUN 38 H Creatinine 1.48 H Estimated GFR 36 L BUN/Creatinine Ratio 25.7 H Glucose 103 Calcium 8.7 PFSH Medical History Atypical migraine Bilateral lower extremity edema Chicken pox (~1951) Chronic adrenal insufficiency Chronic anticoagulation Chronic back pain (~1964) Chronic diarrhea Chronic kidney disease Fecal incontinence (~2021) Headache (~2021) Hearing loss (~2011) History of DVT (deep vein thrombosis) History of kidney disease (~2002) Hyperlipidemia Hypertension Interstitial lung disease Irritable bowel syndrome (~2012) Measles (~1951) Mixed hyperlipidemia Mumps (~1951) 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 Stage 3b chronic kidney disease (CKD) Uses walker Venous (peripheral) insufficiency Surgical History Anesthesia History of back surgery (~2012) History of throat surgery (~1974) Family History Father Cancer History of heart disease Mother Hypertension Social History household members: spouse Smoking Status: Never smoker alcohol intake: current Assessment & Plan Assessment & Plan narrative: 1. Chronic spondylosis/lumbar stenosis with acute sacral insufficiency fractures bilaterally secondary to pathologic fractures from osteoporosis Continue working on pain management and mobilization. Miacalcin nasal spray was ordered yesterday but is not on formulary so she has not been initiated on that yet. Orthopedic surgery consulted and recommended a DEXA scan and outpatient endocrine evaluation for osteoporosis. Likely will discharge to SNF tomorrow. 2. Multiple fractures related to falls, secondary to osteoporosis Plan as noted above. 3. Hypertension Overall, blood pressures are normotensive. Continue home medication. 4. CKD 4 Creatinine is stable at 1.74. GFR is 30. This is consistent with her baseline. 5. Hypothyroidism 6 history of DVT on anticoagulation with warfarin 7. 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 This is likely exacerbated her poor bone health. Continue prednisone per her baseline dosage. No need for stress dose steroids. Code status Full Prophylaxis Warfarin Disposition Likely SNF tomorrow. Quality VTE Deep Vein Thrombosis/Pulmonary Embolism Present on Admission: No
--- NOTE | 2022-07-11 19:48 | PC.NURSE ---
0730: This RN spoke with hospitalist Beverley HOLLINS, pt IV was discontinued last night, Helder okayed continuation of no IV access as pt is being discharged tomorrow and no iv meds.
[2022-07-11 20:00] VITALS: BP 154/61; PULSE 50; RESP 17; TEMP 37.2; O2SAT 97
[2022-07-11] MEDS: TOPIRAMATE 25 MG TABLET 50 MG PO (21:16)
[2022-07-11] MEDS: SENNOSIDES 8.6 MG TABLET 17.2 MG PO (21:16)
[2022-07-11] MEDS: ATORVASTATIN 20 MG TABLET 10 MG PO (21:17)
[2022-07-12] VITALS: BP 165/82; PULSE 65; RESP 17; TEMP 36.1; O2SAT 96
[2022-07-12] MEDS: OXYCODONE/ACETAMINOPHEN 5/325 TABLET 1 TAB PO (00:43)
[2022-07-12 01:16] VITALS: BP 133/66; PULSE 60; O2SAT 95
[2022-07-12] MEDS: LEVOTHYROXINE 100 MCG TABLET PO (05:09)
[2022-07-12 06:00] VITALS: BP 162/79; PULSE 72; RESP 18; TEMP 36.2; O2SAT 95
[2022-07-12] MEDS: POTASSIUM CHLORIDE 20 MEQ TAB PO (08:10)
[2022-07-12] MEDS: SERTRALINE 50 MG TABLET 100 MG PO (08:11)
[2022-07-12] MEDS: LIDOCAINE PATCH 1 EACH ADH..PATCH TOP (08:11)
[2022-07-12] MEDS: CALCITONIN,SALMON, NASAL SPRAY 1 SPRAYS NASAL (08:11)
[2022-07-12] MEDS: predniSONE 5 MG TABLET PO (08:11)
[2022-07-12] MEDS: polyethylene glycoL 3350 17 GM POWD.PACK PO (08:11)
--- NOTE | 2022-07-12 08:25 | P.DS_ITS ---
History of Present Illness History of Present Illness Date Patient Seen: 07/12/22 Time Patient Seen: 08:25 Chief complaint: Back pain Narrative: Per admitting provider, Christine Burger (Lorraine) is a bashir 76 year-old patient with a history of hypertension, hyperlipidemia, chronic hip pain, autoimmune disease, chronic kidney disease stage 4, hypothyroidism, reflux, prior DVT currently anticoagulated on Coumadin, bilateral lower extremity edema, lumbar canal stenosis, L2 compression fracture, osteoporosis, prior lumbar laminectomy, right hip arthroplasty, left venous insufficiency, and pulmonary fibrosis, who presentedwith increasing weakness, severe low back pain worsening over the last several days now unable to stand, acute urinary incontinence. In ED she denied a fall, denies head injury, states that she has swollen lower extremities which have been this way for a very long time, fever chills, or rash.? Patient is boarding in ED went down for admit examination found patient heavily sedated from pain medication, difficult to rouse, confused and pleasantly disorientated. Patient experienced what appeared to be a 10 beat asymptomatic run of V-tach which quickly resolved, consistent hypertensive urgency in ED 185/75, 202/91, heart rate stable 86, RR 16, O2 saturation 93% on room air, patient continues to demonstrate trigeminy w/PVC's,and PAC's without AFib. EKG I personally reviewed sinus arrhythmia with a rate at 88 with a first-degree AV block with frequent PVCs anteroseptal infarct of undetermined age prolonged QT, this is consistent with prior EKG's. Also reviewed EKG from earlier in the day, questionable onset of new AFib. After reviewing the EKGs appears a sinus arrhythmia with frequent PVCs without atrial fibrillation. Unable to obtain HPI, ROS due to patient's confusion and sedation. Labs platelet 135 (baseline chronic thrombocytopenia), chloride 110, BUN 26, creatinine 1.67, glucose 158, GFR 31-these are baseline for her CKD stage 3, PT 44.3, INR 3.8, CK 27, CRP 1.7, initial troponin negative, COVID negative, urine was negative, (chronic elevated BNP) BNP 4380. +3 bilateral lower extremity edema. Echo 03/08/2022 EF 60-65%, mild aortic regurg, mild mitral annular calcification. Chest x-ray prominent pulmonary markings. Lumbar MRI:?Multilevel degenerative disc disease and facet arthropathy, Multilevel central canal stenosis, Multilevel foraminal stenosis, Multiple compression fractures in lumbar spine.? Compression fracture in L2 is subacute, Other fractures are chronic, Bilateral sacral ala insufficiency fractures. Patient admitted for severe low back pain resulting in lower extremity weakness and urinary incontinence, HTN urgency,and supratherapeutic INR. Discharge Providers Provider Date of admission: 07/08/22 21:37 Discharge Date: 07/12/22 Primary care physician: Jamir Garcia MD Consults: 07/08/22 22:33 Consult to Dietitian, Adult Routine Comment: Reason For Exam: BMI 28.9 Consult to Occupational Therapy Evaluate & Treat Comment: Spinal stenosis, weakness Physician Instructions: Evaluate and treat 07/08/22 22:34 Consult to Discharge Planning Routine Comment: concern for safety to return home/mobility Consult to Physical Therapy Evaluate & Treat Comment: Spinal stenosis, weakness Physician Instructions: Evaluate and Treat 07/09/22 16:13 Consult to Dietitian, Adult Routine Comment: Reason For Exam: reports poor appetite Discharge provider: Toby Mullins DO Summary Hospital Course Discharge Diagnosis: 1. Chronic spondylosis/lumbar stenosis with acute sacral insufficiency fractures bilaterally secondary to pathologic fractures from osteoporosis 2. Multiple fractures related to falls, secondary to osteoporosis 3. Hypertension 4. CKD 4 5. Hypothyroidism 6 history of DVT on anticoagulation with warfarin 7. Autoimmune disease Hospital Course: This is a 76 year old female admitted with multiple sacral fractures. She was seen by orthopedic surgery whom recommend outpatient DEXA scan and endocrine referral for osteoporosis treatment. Calcitonin was added as well. They wished to see as an outpatient as well for consideration of PAOLO for lumbar stenosis or if she fails this, spinal surgery referral. He pain was controlled with oral medications. She was recommended for SNF after physcial and occupational therapy evaluations. No infectious etiologies were found on initial evaluation nor did any evidence of infection arise over the course of her stay. She was transferred to SNF for ongoing physical and occupational therapies. Time Spent with Patient Time spent: Greater than 30 minutes Exam Vital Signs (past 8 hours): - 07/12/22 01:16 07/12/22 06:00 Temperature 97.2 F L Pulse Rate 60 72 Respiratory Rate 18 Blood Pressure 133/66 162/79 H Pulse Oximetry 95 95 Oxygen Delivery Method Room Air Oxygen Flow Rate 0 Narrative Exam Narrative: GEN: Pleasant elderly female, Alert and oriented x 3, NAD HEENT:NC, Face symmetric CHEST: Respiratory excursions symmetric, CTAB CV: RRR, no M/R/G ABD: Soft, NT/ND, BT present in all 4 quadrants, no organomegaly or masses EXTR: warm, well perfused, no C/C/E SKIN: warm and dry, no rash NEURO: Alert and oriented x 3, nonfocal Objective Labs 07/11/22 04:24 07/11/22 04:24 [facility] Medical History Atypical migraine Bilateral lower extremity edema Chicken pox (~1951) Chronic adrenal insufficiency Chronic anticoagulation Chronic back pain (~1964) Chronic diarrhea Chronic kidney disease Fecal incontinence (~2021) Headache (~2021) Hearing loss (~2011) History of DVT (deep vein thrombosis) History of kidney disease (~2002) Hyperlipidemia Hypertension Interstitial lung disease Irritable bowel syndrome (~2012) Measles (~1951) Mixed hyperlipidemia Mumps (~1951) 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 Stage 3b chronic kidney disease (CKD) Uses walker Venous (peripheral) insufficiency Surgical History Anesthesia History of back surgery (~2012) History of throat surgery (~1974) Family History Father Cancer History of heart disease Mother Hypertension Social History household members: spouse Smoking Status: Never smoker alcohol intake: current Discharge Plan Discharge Plan Patient Disposition: SNF Transfer to: [facility] Provider Discharge Comment: Please see discharge summary Discharge orders & Medications Prescriptions: New methocarbamol 500 mg tablet 500 mg PO BID PRN (Reason: muscle spasm) Qty: 20 0RF lidocaine [Lidoderm] 5 % adhesive patch,medicated 1 patch topical DAILY PRN (Reason: back pain) Qty: 30 0RF Rx Instructions: leave on most painful area for up to 12 hrs calcitonin (salmon) 200 unit/actuation [place],Non-Aerosol 1 spray intranasal DAILY 30 Days Qty: 3.7 0RF sennosides [senna] 8.6 mg Tablet 17.2 mg PO BEDTIME 14 Days Qty: 28 0RF Continued warfarin 1 mg tablet 1 mg PO DAILY Qty: 120 3RF Rx Instructions: takes 1mg all days except monday takes 1.5mg cholecalciferol (vitamin D3) 125 mcg (5,000 unit) capsule 125 mcg PO DAILY potassium chloride 20 mEq tablet,ER particles/crystals 20 meq PO DAILY digestive enzymes Capsule 1 cap PO DAILY PRN (Reason: Abdominal Discomfort) Rx Instructions: administer with food; swallow whole; do not crush/chew/dissolve/break/cut sertraline 100 mg tablet 100 mg PO DAILY simvastatin 10 mg tablet 10 mg PO DAILY polyethylene glycol 3350 17 gram powder in packet 17 gram PO DAILY PRN (Reason: Constipation) ondansetron HCl [Zofran] 4 mg tablet 4 mg PO TID PRN (Reason: nausea) prednisone 5 mg tablet 5 mg PO DAILY acetaminophen [Tylenol Extra Strength] 500 mg tablet 500 mg PO Q6H PRN (Reason: Pain (Scale Score 4-6)) omeprazole 20 mg capsule,delayed release(DR/EC) 20 mg PO DAILY levothyroxine 100 mcg capsule 100 mcg PO DAILY topiramate 25 mg capsule,extended release 24hr 50 mg PO BEDTIME Changed loperamide 2 mg Capsule 2 mg PO DAILY PRN (Reason: Diarrhea) 14 Days Qty: 0 0RF oxycodone-acetaminophen 5-325 mg tablet 1 tab PO QID PRN (Reason: Back Pain) 7 Days Qty: 20 0RF Follow up/Referrals: Jamir Garcia MD [Primary Care Provider] - Visit Report/Discharge Packet Stand Alone Forms: Patient Portal/API Discharge Data Primary Care Provider: Jamir Garcia V Quality VTE Deep Vein Thrombosis/Pulmonary Embolism Present on Admission: No
[2022-07-12 08:39] VITALS: BP 153/80; PULSE 96; RESP 17; TEMP 36.9; O2SAT 96
--- NOTE | 2022-07-12 08:45 | PT.IPTN ---
Current Diagnoses Other chronic pain (07/08/22) Spinal stenosis, lumbar region without neurogenic claudication (07/08/22) Low back pain, unspecified (07/08/22) Age-related osteoporosis with current pathological fracture, unspecified site, initial encounter for fracture (07/08/22) Pathological fracture, other site, initial encounter for fracture (07/08/22) Physical Therapy Treatment Note M2 PT-IP Current Condition Start: 07/10/22 12:31 Freq: NEEDED Status: Active Protocol: Document 07/10/22 11:40 DLM (Rec: 07/10/22 12:55 DLM [id number]) Physical Therapy Current Condition Current Condition Evaluation Date 07/10/22 Treatment Diagnosis Back pain, spinal fx's and sacral fx, impaired mobility/ gait Onset Date 07/08/22 M3 PT-IP Subjective Start: 07/10/22 12:31 Freq: NEEDED Status: Active Protocol: Document 07/12/22 09:24 TS (Rec: 07/12/22 09:44 TS [id number]) Subjective Physical Therapy Visit Type Type Treatment Note Visit Start Time 08:45 Visit Stop Time 09:20 Total Visit Minutes 35 Physical Therapy Visit Comments Patient Comments Pt reports she hasn't been out of bed since yesterday morning, reports pain is the same, would like to walk to toilet to have BM. Patient Goals Be able to return home. Pt understands she may need SNF rehab. Therapy Pain Assessment Pain When Pain Assessed At Rest Pain Present Pain Present Pain Reported Location Lower Back Description Aching,Stabbing,With Movement Pain Behaviors Facial Grimacing,Guarding Pain Management Techniques Re-positioning,Timing of Activity with Medications M4 PT-IP Mobility and Gait Start: 07/10/22 12:31 Freq: NEEDED Status: Active Protocol: Document 07/12/22 09:24 TS (Rec: 07/12/22 09:44 TS [id number]) PT-Bed Mobility Assessment Rolling Type of Rolling Log Rolling Level of Assist Standby Assistance Supine to Sit Supine to Sit Minimal Assistance,Bedrails Scooting Scooting to Edge of Bed Contact Guard Assistance PT-Transfer Assessment Sit to and From Stand Sit to and from Stand Contact Guard Assistance, Minimal Assistance Equipment Transfer Assistive Device Gait Belt,Front Wheeled Walker Comments Mobility Comments Pt resting in bed, agreeable to PT session. Log roll SBA with cues for handplacement on handrails from flat bed. Supine to sit from flat bed initally SBA with cues for BUE support, pt fatigued requiring Keon for uprighting trunk. Pt required rest break at EOB ~3mins for SOB/fatigue, scooted EOB SBA, cues for feet flat. Sit to stand x1 SBA , demonstrates good carryover of sequencing. She ambulated ~ 10' to bathroom step to gait SBA, progressed to CGA with c/ o of increasing pain in back and LEs, pt sat on toilet, no BM. She required ModA sit to stand from toilet and donning of brief. Pt ambualted to bedside chair Keon, c/o fatigue and shaky LEs. PT was left in bedside chair, call light nearby, RN notified . Gait Assessment Gait Gait Assistance Required: Standby Assistance,Contact Guard Assist,Minimum Assistance,1 Person Assist Distance (Feet) 25 Assistive Devices Assistive Device Gait Belt,Front Wheeled Walker Gait Deviations General Gait Pattern Antalgic,Decreased Stride Length,Step-to Gait Factors Limiting Gait Function Factors Limiting Gait Function Decreased Activity Tolerance, Decreased Strength,Limited Range of Motion,Pain,Poor Balance Comments Gait Comments See mobility comments Stair Climbing Assessment Comments Stair Climbing Comments ramp to enter house PT-Balance Assessment Sitting Balance and Reactions Static Sitting Balance Ability Good Dynamic Sitting Balance Ability Good Standing Balance and Reactions Static Standing Balance Ability Fair Dynamic Standing Balance Ability Poor Device Used FWW Comments Other Balance Tests/Deviations/Treatment Pt sat EOB with BUE support, : maintaining good midline with flexed posture. Pt stood in FWW SBA with bUE support and flexed posture, no signs of buckling or LOB, c/o pain in back/LEs and fatigue. M5 PT-IP Objective Assessments Start: 07/10/22 12:31 Freq: NEEDED Status: Active Protocol: Document 07/10/22 11:40 DLM (Rec: 07/10/22 12:55 DLM [id number]) Orientation Orientation/Cognition Level of Alertness Alert Orientation Name,Age,Birthday,Month,Date, Year,Day of Week,Place, Situation Language Function Ability No Deficits Noted Safety Awareness Understands Safety Issues Memory Description No Deficits Noted Gross Range of Motion Upper Extremity ROM Assessment Bilaterally Impaired Impairments right shoulder flexion to 80 degrees actively and 110 degrees passively left shoulder flexion to 90 degrees actively and 100 degrees passively she reports pain in bilateral shoulders Lower Extremity ROM Assessment Within Functional Limits Impairments trunk AROM is limited by pain, did not fully assess her trunk to better manage her compression fractures Strength Upper Extremity Strength Assessment Bilaterally Impaired Shoulder flexion right 3+/5, left 4-/5 Elbow flex/ext 4+/5 Hand machine tracer right 4+/5, left 3+/5 Lower Extremity Strength Assessment Bilaterally Impaired Hip flexion right 2+/5, left 3+/5 Knee extension right 4-/5, left 3+/ 5 Ankle DF right 3+/5 with pain, left 4/5 Comments Strength Comments she reports being left handed back pain limits LE strength Coordination Assessment Gross Coordination Gross Coordination WNL Sensation Assessment Sensation Gross Sensation WNL Comments Sensation Comments she reports a hx of tingling intermittently in either LE but never both at the same time, none during this visit Muscle Tone Muscle Tone WNL Yes Other Assessments Other Other Assessments kyphotic posture M6 PT-IP Treatment Start: 07/10/22 12:31 Freq: NEEDED Status: Active Protocol: Document 07/12/22 09:24 TS (Rec: 07/12/22 09:44 TS [id number]) Physical Therapy Treatment Education Education Provided Precautions,Safety Other Treatments Other Treatment Performed spine precaution education provided to pt, no family present this visit M7 PT-IP Assessment and Plan Start: 07/10/22 12:31 Freq: NEEDED Status: Active Protocol: Document 07/12/22 09:24 TS (Rec: 07/12/22 09:44 TS [id number]) PT Summary Assessment and Plan Potential Rehabilitation Potential Good Status of Condition at Evaluation Evolving Summary Impairments Pain,ROM,Strength,Balance,Bed Mobility,Transfers,Gait, Activity Tolerance Assessment Summary Pt requiring increased assist to ModA for sit to stand from toliet and Keon for ambulation to bedside chair. She reports increasing pain in back/LEs and fatigue this session causing her to be unsafe with ambulation. She demonstrated some carryover of sequencing of logroll but still requires handplacement cues. PT continues to recommend to increase activity tolerance, strength, trasnfers and gait. [employer] [place] into talk with pt about d/c to SNF at 12:00PM this afternoon. Goals Bed Mobility Goal Independent Transfer Goal Standby Assistance,Front Wheeled Walker,Four Wheeled Walker Gait Goal Standby Assistance,Front Wheel Walker,Four Wheel Walker Gait Distance 75 feet Days to Meet Goals 4 Frequency of Treatment Frequency Of Treatment Once a Day Treatment Plan Physical Therapy Treatment Plan Bed Mobility Training,Transfer Training,Gait Training, Therapeutic Exercise,Balance Retraining,Discharge Planning, Hot or Cold Pack,Neuromuscular Re-ed Other Recommendations and Next Treatment Progress gait, asses carryover Focus of precautions and logroll. Precautions Lumbar Precautions Log Roll,No Twisting,Limit Bending,Lifting Restriction of 10 lbs Other Precautions use spine precautions to manage her compression fractures and osteoporosis she has multiple fx's in thoracic spine and lumbar spine as well as new sacral insufficiency fractures Weight Bearing Status Weight Bearing Status Weight Bear as Tolerated Recommendations To Nursing Amount of Assist Needed 1 Person Assist Discharge Recommendations PT Discharge Recommendations SNF Rehab Transportation Needs at Discharge Wheelchair/Cabulance
--- NOTE | 2022-07-12 09:16 | CM.DPC ---
DCP Discharge SNF Per MD, pt is medically stable to d/c to SNF today and no barriers to discharge. [facility] confirms they can accept pt today with transport around 1200 and provided RN report number and they will need updated COVID swab. SW updated RN and provided report number to call and she confirms she will get updated COVID swab and RN calling spouse now per pt request and will update him on d/c to [facility] at noon. SW met bedside with pt and explained role and TOBACCO BUYER in room to work with her soon and updated her on above and pt confirms she remains agreeable. CC Cristina to kindly fax d/c packet to [facility] when available and also updated window air conditioner installer and DESIGNATED BROKER. Plan: Patient to d/c to [facility] rehab today at 1200 via facility van prior to return home with spouse. NHAN Rutherford
[2022-07-12 09:50] LABS: COVID19 -Nasal RAPID Negative (Negative)
--- NOTE | 2022-07-12 12:20 | PC.NURSE ---
Discharge Note Patient A&O, VSS, RA, no complaints of pain/discomfort. Discharge plan/packet reviewed with patient, all questions/concerns addressed and patient and family agreeable to discharge plan. PIV/TELE discontinued. Patient assisted into facility wheelchair. Transfer packet given to facility staff. Patient taken down via wheelchair by facility staff accompanied by .
== END 2022-07-12 12:15 | DRG 542 ==
LOC: ED 20:12 → AC 22:29
PROVIDERS: Family Medicine; Internal Medicine; Nurse Practitioner Critical Care Medicine; Orthopaedic Surgery Foot and Ankle Surgery; Admitting Provider Nurse Practitioner Family; Emergency Provider Emergency Medicine; PCP Internal Medicine; Referring Provider Emergency Medicine; Visit Provider Nurse Practitioner Family
DX: M80.88XA Other osteoporosis with current pathological fracture, vertebra(e), initial encounter for fracture (principal); G92.9 Unspecified toxic encephalopathy; M31.7 Microscopic polyangiitis; N18.4 Chronic kidney disease, stage 4 (severe); J84.9 Interstitial pulmonary disease, unspecified; M48.061 Spinal stenosis, lumbar region without neurogenic claudication; I16.0 Hypertensive urgency; R79.1 Abnormal coagulation profile; E78.2 Mixed hyperlipidemia; I87.2 Venous insufficiency (chronic) (peripheral); I49.1 Atrial premature depolarization; D69.6 Thrombocytopenia, unspecified; I12.9 Hypertensive chronic kidney disease with stage 1 through stage 4 chronic kidney disease, or unspecified chronic kidney disease; E66.3 Overweight; E03.9 Hypothyroidism, unspecified; G43.809 Other migraine, not intractable, without status migrainosus; T38.0X5A Adverse effect of glucocorticoids and synthetic analogues, initial encounter; D89.89 Other specified disorders involving the immune mechanism, not elsewhere classified; M47.816 Spondylosis without myelopathy or radiculopathy, lumbar region; Z86.718 Personal history of other venous thrombosis and embolism; Z79.01 Long term (current) use of anticoagulants; Z68.28 Body mass index [BMI] 28.0-28.9, adult; Z20.822 Contact with and (suspected) exposure to COVID-19
CPT/HCPCS: 36415; 51701; 70551; 71045; 72148; 80048; 80053; 81003; 81015; 82306; 82550; 83735; 83880; 84439; 84443; 84484; 85025; 85610; 86140; 87635; 93005; 96365; 96372; 96375; 97116; 97162; 97166; 97530; 97535; 99285; C9803; J1650; J1940; J2920

== ENCOUNTER 2022-07-29 17:07 | Emergency (ER) | payer MEDICARE, OTHER, SELFPAY ==
[2022-07-09 16:03] VITALS: BMI 28.9
[2022-07-29 17:15] VITALS: BP 168/100; PULSE 83; RESP 16; TEMP 36.7; O2SAT 100; BMI 30.1
--- NOTE | 2022-07-29 17:18 | DI.CT.S_ITS ---
PROCEDURE: CT HEAD/BRAIN WO CON INDICATIONS: fall hit head on thinners TECHNIQUE: Noncontrast 4.5 mm thick angled axial sections acquired from the foramen magnum to the vertex, with coronal and sagittal reformats. For radiation dose reduction, the following was used: automated exposure control, adjustment of mA and/or kV according to patient size. COMPARISON: [facility], CT, CT HEAD/BRAIN WO CON, 04/29/2022, 17:33. FINDINGS: Image quality: Excellent. CSF spaces: Basal cisterns are patent. No extra-axial fluid collections. The ventricles are symmetric in size and shape. Brain: No intracranial bleeds or masses. There is cerebral volume loss for age, with resultant ventricular and sulcal prominence. There are periventricular and deep white matter chronic small vessel ischemic changes. There is intracranial internal carotid artery atherosclerosis. Skull and face: Calvarium and visualized facial bones appear intact, without suspicious lesions. Sinuses: Visualized sinuses and mastoids are clear. IMPRESSION: No acute intracranial abnormality. Dictated by: Marivel Sands M.D. on 07/29/2022 at 17:54 Approved by: Marivel Sands M.D. on 07/29/2022 at 17:55
--- NOTE | 2022-07-29 20:39 | DI.RAD.S_ITS ---
PROCEDURE: XR SHOULDER LT MIN 2V INDICATIONS: fall with shoulder pain TECHNIQUE: 2 views of the shoulder were acquired. COMPARISON: [facility], CR, XR SHOULDER RT MIN 2V, 11/22/2019, 15:02. FINDINGS: Bones: No fractures or dislocations. There is mild glenohumeral and acromioclavicular joint degeneration. No suspicious bony lesions. Visualized ribs appear intact. Soft tissues: No suspicious soft tissue calcifications. IMPRESSION: 1. No fracture or dislocation. Dictated by: Jesu Parks M.D. on 07/29/2022 at 22:14 Approved by: Jesu Parks M.D. on 07/29/2022 at 22:14
[2022-07-29 23:37] VITALS: PULSE 111; O2SAT 96
[2022-07-29 23:42] VITALS: BP 177/129; PULSE 99; O2SAT 97
--- NOTE | 2022-07-29 23:48 | DI.RAD.S_ITS ---
PROCEDURE: XR HIP W PEL IF DONE LT 2V INDICATIONS: pain and fall TECHNIQUE: AP pelvis with lateral view of the left hip. COMPARISON: [facility], CR, XR HIP W PEL IF DONE LT 2V, 04/29/2022, 17:36. FINDINGS: Bones: No fractures or dislocations. Pelvic ring demonstrates no acute fractures. There is deformity of the medial left ischium along the pubic symphysis suggesting sequelae of prior trauma. A right hip prosthesis is redemonstrated. No suspicious bony lesions. Soft tissues: The visualized bowel gas pattern is normal. No suspicious soft tissue calcifications. IMPRESSION: 1. No fracture or dislocation. Dictated by: Jesu Parks M.D. on 07/30/2022 at 1:11 Approved by: Jesu Parks M.D. on 07/30/2022 at 1:12
--- NOTE | 2022-07-29 23:58 | DI.RAD.S_ITS ---
PROCEDURE: XR CHEST 1V INDICATIONS: chest pain TECHNIQUE: One view of the chest was acquired. COMPARISON: [facility], , CHEST 1 VIEW, 07/02/2015, 12:14. [facility], , CHEST 2 VIEW, 01/19/2017, 15:08. [facility], , XR CHEST 1V, 03/01/2022, 11:02. [facility], , XR CHEST 1V, 07/08/2022, 16:36. FINDINGS: Surgical changes and devices: None. Lungs and pleura: A nodular opacity measuring up to 0.9 cm is redemonstrated within the right lung. No acute consolidation. No pleural effusions or pneumothorax. Mediastinum: Mediastinal contours are unchanged. Heart size is enlarged. Bones and chest wall: No suspicious bony lesions. Overlying soft tissues appear unremarkable. IMPRESSION: 1. No acute cardiopulmonary disease. 2. Nodular opacity in the right lung appears similar to the prior studies. Dictated by: Jesu Parks M.D. on 07/30/2022 at 1:07 Approved by: Jesu Parks M.D. on 07/30/2022 at 1:10
[2022-07-30] VITALS (13 sets, daily range): BP systolic 144–161; BP diastolic 75–115; PULSE 92–106; RESP 15–26; O2SAT 92–97
--- NOTE | 2022-07-30 00:22 | PC.NURSE ---
Pt reports 40 lb weight loss over the past couple of months or maybe more because of stomach thing, diarrhea and I don't eat as much as I used to.
[2022-07-30 00:25] LABS: Add Manual Diff / Slide Review NO; Basophils Absolute Auto 100 /uL (0-100); Basophils Percent Auto 0.5 % (0-2); Eosinophils Absolute Auto 0 /uL (0-450); Eosinophils Percent Auto 0.1 % (2-4); Hematocrit 44.1 % (36-46); Hemoglobin 14.2 g/dL (12.0-16.0); Lymphocytes Absolute Auto 3000 /uL (1100-4500); Lymphocytes Percent Auto 26.5 % (25-40); Mean Corpuscular HGB Conc 32.3 % (30-36); Mean Corpuscular Hemoglobin 29.8 PG (26-34); Mean Corpuscular Volume 92.1 fL (80-100); Monocytes Absolute Auto 1600 /uL (0-900); Monocytes Percent Auto 13.9 % (3-14); Neutrophils Absolute Auto 6700 /uL (1500-7000); Platelet Count 135 X10^3/uL (150-400); Red Blood Cell Count 4.79 X10^6/uL (4.0-5.2); Red Cell Distribution Width 16.1 % (11.6-14.8); White Blood Cell Count 11.4 X10^3/uL (4.5-11.0)
[2022-07-30 00:27] LABS: INR 3.2 (0.9-1.3); Prothrombin Time 36.6 SECONDS (10.1-12.7)
[2022-07-30 00:30] LABS: PTT Partial Thromboplastin Tim 41 SECONDS (26-36)
[2022-07-30 00:32] LABS: Alanine Aminotransferase 28 IU/L (<35); Albumin 3.8 g/dL (3.5-5.0); Albumin Globulin Ratio 1.6 (1.0-2.8); Alkaline Phosphatase 188 U/L (38-126); Aspartate Aminotransferase 35 IU/L (14-36); BUN Creatinine Ratio 12.1 (6-22); Bilirubin Total 0.8 mg/dL (0.2-1.3); Blood Urea Nitrogen 22 mg/dL (7-17); Calcium 8.9 mg/dL (8.4-10.2); Carbon Dioxide 23 mmol/L (22-32); Chloride 106 mmol/L (98-107); Creatine Kinase 32 U/L (30-135); Estimated Glomerular Filt Rate 28 mL/min (>60); Globulin 2.4 g/dL (1.7-4.1); Glucose 81 mg/dL (80-110); HEMOLYSIS < 15 (0-50); Lipase 45 U/L (23-300); Potassium 4.3 mmol/L (3.4-5.1); Sodium 137 mmol/L (137-145); Total Protein 6.2 g/dL (6.3-8.2)
[2022-07-30 00:44] LABS: Troponin I 0.034 ng/mL (0.01-0.034)
[2022-07-30 00:48] LABS: Procalcitonin 0.51 ng/mL (<0.5)
--- NOTE | 2022-07-30 01:23 | ED_ITS ---
HPI - Fall General Chief Complaint: Fall Stated Complaint: Fall Time Seen by Provider: 07/29/22 23:48 History of Present Illness HPI Narrative: Patient is a 76-year-old female is [facility] apparently reaching over the bed to nut picker a phone fell out of the bed there may not have hit head. She takes warfarin for atrial fibrillation. Does not remember exactly what happened. She is complaining of pain in her legs and her left arm. She was feeling well earlier. Patient is COVID positive there is an outbreak at the facility but she is asymptomatic. Related Data Home Medications Medication Instructions Recorded Confirmed acetaminophen 500 mg tablet 500 mg PO Q6H PRN Pain (Scale 10/09/17 07/12/22 (Tylenol Extra Strength) Score 4-6) levothyroxine 100 mcg capsule 100 mcg PO DAILY 10/09/17 07/12/22 omeprazole 20 mg capsule,delayed 20 mg PO DAILY 10/09/17 07/12/22 release ondansetron HCl 4 mg tablet 4 mg PO TID PRN nausea 10/09/17 07/12/22 (Zofran) polyethylene glycol 3350 17 gram 17 gram PO DAILY PRN Constipation 10/09/17 07/12/22 oral powder packet prednisone 5 mg tablet 5 mg PO DAILY 10/09/17 07/12/22 topiramate 25 mg capsule,extended 50 mg PO BEDTIME 10/09/17 07/12/22 release 24 hr digestive enzymes 1 cap PO DAILY PRN Abdominal 06/10/22 07/12/22 Discomfort potassium chloride 20 mEq 20 meq PO DAILY 06/10/22 07/12/22 tablet,extended release(part/cryst) sertraline 100 mg tablet 100 mg PO DAILY 06/10/22 07/12/22 simvastatin 10 mg tablet 10 mg PO DAILY 06/10/22 07/12/22 cholecalciferol (vitamin D3) 125 125 mcg PO DAILY 06/15/22 07/12/22 mcg (5,000 unit) capsule Previous Rx's Medication Instructions Recorded warfarin 1 mg tablet 1 mg PO DAILY #120 tabs 06/10/22 lidocaine 5 % topical patch 1 patch topical DAILY PRN back 07/08/22 (Lidoderm) pain #30 ea methocarbamol 500 mg tablet 500 mg PO BID PRN muscle spasm #20 07/08/22 tabs calcitonin (salmon) 200 1 spray intranasal DAILY 30 days 07/12/22 unit/actuation nasal spray #3.7 mL loperamide 2 mg capsule 2 mg PO DAILY PRN Diarrhea 14 days 07/12/22 #0 caps oxycodone-acetaminophen 5 mg-325 1 tab PO QID PRN Back Pain 7 days 07/12/22 mg tablet #20 tabs Allergies Allergy/AdvReac Type Severity Reaction Status Date / Time amoxicillin [AMOXICILLIN] Allergy Severe rash and Verified 06/10/22 09:13 diarrhea oxybutynin Allergy Severe tongue Verified 06/10/22 09:13 swells Sulfa (Sulfonamide Allergy Severe fever and Verified 06/10/22 09:13 Antibiotics) rash [SULFA (SULFONAMIDE ANTIBIOTICS)] NSAIDS (Non-Steroidal Allergy Unknown Verified 06/10/22 09:13 Anti-Inflamma [NSAIDS (NON-STEROIDAL ANTI-INFLAMMA] cephalexin Allergy rash Verified 06/10/22 09:13 codeine [CODEINE] AdvReac Mild headache Verified 06/10/22 09:13 duloxetine [From CYMBALTA] AdvReac Mild vomiting Verified 06/10/22 09:13 morphine [MORPHINE] AdvReac Mild vomiting Verified 06/10/22 09:13 nitrofurantoin AdvReac Mild vomiting Verified 06/10/22 09:13 [From MACROBID] carisoprodol AdvReac Verified 06/10/22 09:13 piroxicam [From Feldene] AdvReac Verified 06/10/22 09:13 tolterodine AdvReac Verified 06/10/22 09:13 Review of Systems Review of Systems ROS Unobtainable: All systems reviewed & are unremarkable except as noted in HPI and below Patient History Medical History Atypical migraine Bilateral lower extremity edema Chicken pox (~1951) Chronic adrenal insufficiency Chronic anticoagulation Chronic back pain (~1964) Chronic diarrhea Chronic kidney disease Fecal incontinence (~2021) Headache (~2021) Hearing loss (~2011) History of DVT (deep vein thrombosis) History of kidney disease (~2002) Hyperlipidemia Hypertension Interstitial lung disease Irritable bowel syndrome (~2012) Measles (~1951) Mixed hyperlipidemia Mumps (~1951) 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 Stage 3b chronic kidney disease (CKD) Uses walker Venous (peripheral) insufficiency Surgical History (Reviewed 07/09/22 @ 01:27 by [facility]I [facility] Anesthesia History of back surgery (~2012) History of throat surgery (~1974) Family History Father Cancer History of heart disease Mother Hypertension Social History household members: spouse Smoking Status: Never smoker alcohol intake: current Smoking Status: Never smoker alcohol intake frequency: 0-2 drinks per day Substance Use Type: does not use Exam Initial Vital Signs Initial Vital Signs: Vital Signs Temperature 98.1 F 07/29/22 17:15 Pulse Rate 83 07/29/22 17:15 Respiratory Rate 16 07/29/22 17:15 Blood Pressure 168/100 H 07/29/22 17:15 Pulse Oximetry 100 07/29/22 17:15 Oxygen Delivery Method Room Air 07/29/22 17:15 GENERAL: Alert 76-year-old female, appears well HEENT: Head atraumatic,EOMI, pupils reactive, face symmetric, [moist] mucous membranes CARDIOVASCULAR: Regular rate and rhythm without murmurs, rubs or gallops. RESPIRATORY: Breath sounds equal bilaterally, no wheezes rales or rhonchi. ABDOMEN: Soft, nontender. Normoactive bowel sounds all 4 quadrants. No guarding or rebound. EXTREMITIES: Normal range of motion, no clubbing or edema. Neurovascularly intact NEUROLOGICAL: Alert and oriented x4. [employer] Umpire strength equal bilaterally SKIN: Right carrasco 2-1/2 cm laceration, good skin approximation Procedures Laceration Repair Laceration 1: Size (cm): 3 Depth: simple, single layer Local Anesthetic: lidocaine 1% and with epi Skin layer closed with: nylon Skin layer suture size: 4-0 Number of sutures: 3 Technique: simple, interrupted and horizontal mattress (1) Course Orders Ordered: ED Orders 07/29/22 23:48 XR hip w pel if done LT 2V Stat 07/29/22 23:58 XR chest 1V Stat Complete Blood Count AUTO DIFF Stat Comprehensive Metabolic Panel Stat Lipase Stat PTT Partial Thromboplastin Eugenio Stat Procalcitonin Stat Prothrombin Time INR Stat Troponin & CK Cardiac Panel Stat EKG-12 Lead Stat Discontinued Medications Acetaminophen (Acetaminophen 325 Mg Tablet) 975 mg PO NOW ONE Stop: 07/30/22 05:17 Last Admin: 07/30/22 05:24 Dose: 975 mg Documented By: NICANOR Vital Signs Vital signs: Vital Signs - 8 hr 07/29/22 23:37 07/29/22 23:42 07/29/22 23:42 Pulse Rate 111 H 99 H Respiratory Rate Blood Pressure 177/129 H Pulse Oximetry 96 97 Oxygen Delivery Method 07/30/22 00:00 07/30/22 00:00 07/30/22 00:37 Pulse Rate 102 H 100 H Respiratory Rate 18 15 Blood Pressure 146/90 H Pulse Oximetry 97 97 Oxygen Delivery Method Room Air 07/30/22 01:00 07/30/22 01:30 07/30/22 02:00 Pulse Rate 93 H 99 H 97 H Respiratory Rate 24 23 23 Blood Pressure Pulse Oximetry 92 94 94 Oxygen Delivery Method Room Air 07/30/22 02:01 07/30/22 02:01 07/30/22 02:30 Pulse Rate 95 H Respiratory Rate 18 Blood Pressure 152/76 H 161/76 H Pulse Oximetry 95 Oxygen Delivery Method 07/30/22 02:30 07/30/22 03:00 07/30/22 03:30 Pulse Rate 93 H 92 H Respiratory Rate 26 H Blood Pressure 148/115 H Pulse Oximetry 93 94 Oxygen Delivery Method Room Air 07/30/22 03:30 07/30/22 04:00 07/30/22 04:30 Pulse Rate 103 H 100 H 101 H Respiratory Rate 19 20 22 Blood Pressure Pulse Oximetry 96 94 95 Oxygen Delivery Method 07/30/22 05:00 07/30/22 05:31 07/30/22 05:31 Pulse Rate 106 H 105 H Respiratory Rate 15 25 H Blood Pressure 144/75 H Pulse Oximetry 95 96 Oxygen Delivery Method Room Air MDM - Fall Lab Data 07/30/22 00:13 07/30/22 00:13 Labs: Lab Results 07/30/22 07/30/22 07/30/22 Range/Units 00:13 00:13 00:13 WBC 11.4 H (4.5-11.0) X10^3/uL RBC 4.79 (4.0-5.2) X10^6/uL Hgb 14.2 (12.0-16.0) g/dL Hct 44.1 (36-46) % MCV 92.1 (80-100) fL MCH 29.8 (26-34) PG MCHC 32.3 (30-36) % RDW 16.1 H (11.6-14.8) % Plt Count 135 L (150-400) X10^3/uL Neut % (Auto) 59.0 (50-75) % Lymph % (Auto) 26.5 (25-40) % [place] % (Auto) 13.9 (3-14) % Eos % (Auto) 0.1 L (2-4) % Baso % (Auto) 0.5 (0-2) % Neut # (Auto) 6700 (0510-6472) /uL Lymph # (Auto) 3000 (2955-8550) /uL [place] # (Auto) 1600 H (0-900) /uL Eos # (Auto) 0 (0-450) /uL Baso # (Auto) 100 (0-100) /uL PT 36.6 H (10.1-12.7) SECONDS INR 3.2 H (0.9-1.3) APTT 41 H (26-36) SECONDS Sodium 137 (137-145) mmol/L Potassium 4.3 (3.4-5.1) mmol/L Chloride 106 (98-107) mmol/L Carbon Dioxide 23 (22-32) mmol/L BUN 22 H (7-17) mg/dL Creatinine 1.82 H (0.52-1.04) mg/dL Estimated GFR 28 L (>60) mL/min BUN/Creatinine Ratio 12.1 (6-22) Glucose 81 (80-110) mg/dL Calcium 8.9 (8.4-10.2) mg/dL Total Bilirubin 0.8 (0.2-1.3) mg/dL AST 35 (14-36) IU/L ALT 28 (<35) IU/L Alkaline Phosphatase 188 H (38-126) U/L Total Creatine Kinase 32 (30-135) U/L CK-MB (CK-2) TNP CK-MB (CK-2) Rel Index TNP Troponin I 0.034 (0.01-0.034) ng/mL Total Protein 6.2 L (6.3-8.2) g/dL Albumin 3.8 (3.5-5.0) g/dL Globulin 2.4 (1.7-4.1) g/dL Albumin/Globulin Ratio 1.6 (1.0-2.8) Lipase 45 (23-300) U/L Procalcitonin 0.51 H (<0.5) ng/mL Imaging Data CT scan - head: Radiologist's Impression: PROCEDURE:? CT HEAD/BRAIN WO CON ? INDICATIONS:? fall hit head on thinners ? TECHNIQUE:? Noncontrast 4.5 mm thick angled axial sections acquired from the foramen magnum to the vertex, with coronal and sagittal reformats.? For radiation dose reduction, the following was used:? automated exposure control, adjustment of mA and/or kV according to patient size.? ? COMPARISON:? [facility], CT, CT HEAD/BRAIN WO CON, 04/29/2022, 17:33. ? FINDINGS:? Image quality:? Excellent.? ? CSF spaces:? Basal cisterns are patent.? No extra-axial fluid collections.? The ventricles are symmetric in size and shape.? ? Brain:? No intracranial bleeds or masses.? There is cerebral volume loss for age, with resultant ventricular and sulcal prominence.? There are periventricular and deep white matter chronic small vessel ischemic changes.? There is intracranial internal carotid artery atherosclerosis.? ? Skull and face:? Calvarium and visualized facial bones appear intact, without suspicious lesions.? ? Sinuses:? Visualized sinuses and mastoids are clear.? ? IMPRESSION:? No acute intracranial abnormality. ? ? Dictated by: Marivel Sands M.D. on 07/29/2022 at 17:54 ? ? Extremity x-ray #1: Radiologist's Impression: PROCEDURE:? XR SHOULDER LT MIN 2V ? INDICATIONS:? fall with shoulder pain ? TECHNIQUE:? 2 views of the shoulder were acquired.? ? COMPARISON:? [facility], CR, XR SHOULDER RT MIN 2V, 11/22/2019, 15:02. ? FINDINGS:? ? Bones:? No fractures or dislocations.? There is mild glenohumeral and acromioclavicular joint degeneration.? No suspicious bony lesions.? Visualized ribs appear intact.? ? Soft tissues:? No suspicious soft tissue calcifications.? ? IMPRESSION:? ? 1. No fracture or dislocation. ? ? Dictated by: Jesu Parks M.D. on 07/29/2022 at 22:14 ? ? Extremity x-ray #2: Radiologist's Impression: PROCEDURE:? XR HIP W PEL IF DONE LT 2V ? INDICATIONS:? pain and fall ? TECHNIQUE:? AP pelvis with lateral view of the left hip. ? COMPARISON:? [facility], , XR HIP W PEL IF DONE LT 2V, 04/29/2022, 17:36. ? FINDINGS:? ? Bones:? No fractures or dislocations.? Pelvic ring demonstrates no acute fractures.? There is deformity of the medial left ischium along the pubic symphysis suggesting sequelae of prior trauma.? A right hip prosthesis is redemonstrated.? No suspicious bony lesions.? ? Soft tissues:? The visualized bowel gas pattern is normal.? No suspicious soft tissue calcifications.? ? ? IMPRESSION:? ? 1. No fracture or dislocation. ? ? ? Dictated by: Jesu Parks M.D. on 07/30/2022 at 1:11 ? ? Chest x-ray: Radiologist's Impression: PROCEDURE:? XR CHEST 1V ? INDICATIONS:? chest pain ? TECHNIQUE:? One view of the chest was acquired.? ? COMPARISON:? [facility], CHEST 1 VIEW, 07/02/2015, 12:14.? [facility], CHEST 2 VIEW, 01/19/2017, 15:08.? [facility], XR CHEST 1V, 03/01/2022, 11:02.? [facility], XR CHEST 1V, 07/08/2022, 16:36. ? FINDINGS:? ? Surgical changes and devices:? None.? ? Lungs and pleura:? A nodular opacity measuring up to 0.9 cm is redemonstrated within the right lung.? No acute consolidation.? No pleural effusions or pneumothorax.? ? Mediastinum:? Mediastinal contours are unchanged.? Heart size is enlarged. ? Bones and chest wall:? No suspicious bony lesions.? Overlying soft tissues appear unremarkable.? ? IMPRESSION:? ? 1. No acute cardiopulmonary disease. ? 2. Nodular opacity in the right lung appears similar to the prior studies.? ? ? Dictated by: Jesu Parks M.D. on 07/30/2022 at 1:07 ECG Data Interpretation: Atrial fibrillation rate [address] changes previous EKG was a sinus rhythm MDM Narrative Medical decision making narrative: Patient is a 76-year-old female presents his possible mechanical fall although when I questioned her she did not have very much information initially. Heart rate on the monitor was also noted to be 133. She was found to be in AFib history of AFib on warfarin, INR today 3.2. Minimal minimal leukocytosis 11.4 without left shift. Creatinine today mildly elevated 1.82 previously 148. Patient does have COVID but she reports that she is pretty asymptomatic she said that she just got swab because everyone in the facility was getting swabbed. She fell reaching for something across the bed she has right lower leg laceration that is repaired with sutures. She also complains of left shoulder pain which is x-rayed and is negative. Discharge Plan Departure Patient Disposition: Home Clinical Impression: Fall, Laceration of right lower leg Instructions: DI for Laceration Repair, How to Prevent Falls Activity Restrictions/Additional Instructions: *You have been diagnosed with fall, right leg laceration *What to do: Sutures will need to be removed in about 5-7 days. *Continue to take medications as directed *Follow up with your primary care provider in 2-3 days or call [phone] *Return to ER if you should have increasing falls confusion weakness [or] any new, worsening or concerning symptoms Prescriptions: No Action warfarin 1 mg tablet 1 mg PO DAILY Qty: 120 3RF Rx Instructions: takes 1mg all days except monday takes 1.5mg cholecalciferol (vitamin D3) 125 mcg (5,000 unit) capsule 125 mcg PO DAILY potassium chloride 20 mEq tablet,ER particles/crystals 20 meq PO DAILY digestive enzymes Capsule 1 cap PO DAILY PRN (Reason: Abdominal Discomfort) Rx Instructions: administer with food; swallow whole; do not crush/chew/dissolve/break/cut sertraline 100 mg tablet 100 mg PO DAILY simvastatin 10 mg tablet 10 mg PO DAILY methocarbamol 500 mg tablet 500 mg PO BID PRN (Reason: muscle spasm) Qty: 20 0RF lidocaine [Lidoderm] 5 % adhesive patch,medicated 1 patch topical DAILY PRN (Reason: back pain) Qty: 30 0RF Rx Instructions: leave on most painful area for up to 12 hrs calcitonin (salmon) 200 unit/actuation [place],Non-Aerosol 1 spray intranasal DAILY 30 Days Qty: 3.7 0RF loperamide 2 mg Capsule 2 mg PO DAILY PRN (Reason: Diarrhea) 14 Days Qty: 0 0RF oxycodone-acetaminophen 5-325 mg tablet 1 tab PO QID PRN (Reason: Back Pain) 7 Days Qty: 20 0RF polyethylene glycol 3350 17 gram powder in packet 17 gram PO DAILY PRN (Reason: Constipation) ondansetron HCl [Zofran] 4 mg tablet 4 mg PO TID PRN (Reason: nausea) prednisone 5 mg tablet 5 mg PO DAILY acetaminophen [Tylenol Extra Strength] 500 mg tablet 500 mg PO Q6H PRN (Reason: Pain (Scale Score 4-6)) omeprazole 20 mg capsule,delayed release(DR/EC) 20 mg PO DAILY levothyroxine 100 mcg capsule 100 mcg PO DAILY topiramate 25 mg capsule,extended release 24hr 50 mg PO BEDTIME Referrals: Jamir Garcia MD [Primary Care Provider] - Stand Alone Forms: Patient Portal/API
[2022-07-30] MEDS: ACETAMINOPHEN 325 MG TABLET 975 MG PO (05:24)
== END 2022-07-30 05:49 | disposition home or self-care (01) ==
PROVIDERS: Emergency Provider Emergency Medicine; PCP Internal Medicine
DX: S81.811A Laceration without foreign body, right lower leg, initial encounter (principal); S09.90XA Unspecified injury of head, initial encounter; M79.602 Pain in left arm; R07.89 Other chest pain; Z79.01 Long term (current) use of anticoagulants; W18.30XA Fall on same level, unspecified, initial encounter; Z79.899 Other long term (current) drug therapy
CPT/HCPCS: 12002; 36415; 70450; 71045; 73030; 73502; 80053; 82550; 83690; 84145; 84484; 85025; 85610; 85730; 93005; 93010; 99284; 99285

== ENCOUNTER 2022-08-10 18:28 | Inpatient (IN) | payer MEDICARE, OTHER, SELFPAY ==
[2022-07-09 16:03] VITALS: BMI 28.9
[2022-08-10] VITALS (19 sets, daily range): BP systolic 134–174; BP diastolic 75–121; PULSE 126–164; RESP 25–52; TEMP 38.3–38.9; O2SAT 92–100
--- NOTE | 2022-08-10 18:30 | DI.RAD.S_ITS ---
PROCEDURE: XR FOREARM LT 2V INDICATIONS: fall TECHNIQUE: 2 views of the forearm were acquired. COMPARISON: None. FINDINGS: Bones: No displaced fracture of the radial shaft or ulnar shaft. Soft tissues: Small amount of vascular or dystrophic calcifications is seen in the medial soft tissues. IMPRESSION: No radial or ulnar shaft fracture. Wrist and humerus findings are separately dictated. Dictated by: Alec Meeks M.D. on 08/10/2022 at 19:26 Approved by: Alec Meeks M.D. on 08/10/2022 at 19:26
--- NOTE | 2022-08-10 18:30 | DI.RAD.S_ITS ---
PROCEDURE: XR HUMERUS LT 2V INDICATIONS: fall TECHNIQUE: 2 views of the humerus were acquired. COMPARISON: None. FINDINGS: Bones: No displaced humeral shaft fracture identified. Soft tissues: No suspicious soft tissue calcifications. IMPRESSION: No displaced humeral shaft fracture. If there is high concern for occult injury, consider repeat radiography or cross-sectional imaging. Dictated by: Alec Meeks M.D. on 08/10/2022 at 19:27 Approved by: Alec Meeks M.D. on 08/10/2022 at 19:27
--- NOTE | 2022-08-10 18:31 | DI.CT.S_ITS ---
PROCEDURE: CT HEAD/BRAIN WO CON INDICATIONS: fall, head lac, on warfarin TECHNIQUE: Noncontrast 4.5 mm thick angled axial sections acquired from the foramen magnum to the vertex, with coronal and sagittal reformats. For radiation dose reduction, the following was used: automated exposure control, adjustment of mA and/or kV according to patient size. COMPARISON: [facility], CT, CT HEAD/BRAIN WO CON, 07/29/2022, 17:39. FINDINGS: Image quality: Degraded by patient positioning and motion CSF spaces: Basal cisterns are patent. Lateral ventricles are symmetric. Volume: Vascular calcifications. Periventricular white matter disease is commonly seen with chronic microangiopathy. Volume loss is present. These findings are moderate Brain: No intracranial hemorrhage. Babin-white differentiation is grossly maintained. Craniofacial structures: No displaced fracture. Sinuses are clear. Orbits are intact. IMPRESSION: Limited head CT without acute intracranial abnormality. Dictated by: Alec Meeks M.D. on 08/10/2022 at 19:15 Approved by: Alec Meeks M.D. on 08/10/2022 at 19:16
--- NOTE | 2022-08-10 18:31 | DI.CT.S_ITS ---
PROCEDURE: CT CERVICAL SPINE WO CON INDICATIONS: fall, high risk for age and osteoporosis TECHNIQUE: Noncontrast 3 mm thick sections acquired from the skull base to the T4 level. Sagittal and coronal reformats were then constructed. For radiation dose reduction, the following was used: automated exposure control, adjustment of mA and/or kV according to patient size. COMPARISON: [facility], CR, THORACIC SPINE 2 VIEWS, 01/19/2017, 15:08. [facility], CT, CT CERVICAL SPINE WO CON, 04/29/2022, 17:33. FINDINGS: Image quality: Mildly motion degraded Bones: [id number] degenerative changes. There is a chronic appearing bone fragment between C2 on C3 posteriorly. No traumatic subluxation. No acute cervical vertebral body height loss. Partially seen T6 fracture, present on prior radiography. Wedging of the upper thoracic vertebral bodies also again seen. Soft tissues: Vascular calcifications are present. No pathologic prevertebral soft tissue swelling. Partially seen lung opacities and atelectasis. IMPRESSION: No acute fracture or traumatic subluxation of the cervical spine. There are [id number] degenerative changes. If there is high concern for further derangement, consider MRI evaluation. Dictated by: Alec Meeks M.D. on 08/10/2022 at 19:17 Approved by: Alec Meeks M.D. on 08/10/2022 at 19:20
--- NOTE | 2022-08-10 18:54 | DI.RAD.S_ITS ---
PROCEDURE: XR CHEST 1V INDICATIONS: fever TECHNIQUE: One view of the chest was acquired. COMPARISON: [facility], CR, XR CHEST 1V, 07/30/2022, 0:17. [facility], CR, XR CHEST 1V, 07/08/2022, 16:36. FINDINGS: Surgical changes and devices: None Lungs and pleura: Low lung volumes. Crowding of the interstitium versus vasculature. Nodule in the right mid lung again seen. Mediastinum: Borderline enlarged heart. Bones and chest wall: No suspicious bony lesions. Overlying soft tissues appear unremarkable. IMPRESSION: Low lung volumes. Borderline enlarged heart. Crowding of the interstitium possibly representing edema or atypical infection, versus vascular crowding artifact. A nodule in the right mid lung appears similar. Consider future imaging surveillance to assess for resolution. Dictated by: Alec Meeks M.D. on 08/10/2022 at 19:27 Approved by: Alec Meeks M.D. on 08/10/2022 at 19:29
[2022-08-10] MEDS: SODIUM CHLORIDE 0.9% 1,000 ML 1000 ML IV ×2 (18:55→22:21)
--- NOTE | 2022-08-10 19:06 | ED.GENADULT ---
HPI - General Adult <Tereza Pablo MD - Last Filed: 09/05/22 19:59> General Chief complaint: Fall Stated complaint: GLF; on thinners Time Seen by Provider: 08/10/22 18:30 Source: EMS Mode of arrival: EMS History of Present Illness HPI narrative: 76-year-old woman currently at [facility] with a history of reportedly was on the edge of her bed fell forward hitting her head landing on her left side. She takes warfarin for recurrent DVT without diagnosis of PE or atrial fibrillation with recent reports of elevated INR so the warfarin has been held. Additional medical history includes hypertension, hyperlipidemia, autoimmune disease, chronic kidney disease, hypothyroidism lumbar stenosis. Reportedly were going to discuss changing it to apixaban. She is increasingly confused, she has multiple bruises over her entire body. She is globally weak, very dry mucous membranes and is febrile on arrival in the emergency department. Reportedly tested positive for COVID and was asymptomatic about 8 days ago. Daughter is present today notes that she is definitely not at her baseline, confused and much more agitated. Related Data Home Medications Medication Instructions Recorded Confirmed acetaminophen 500 mg tablet 500 mg PO Q6H PRN Pain (Scale 10/09/17 08/11/22 (Tylenol Extra Strength) Score 4-6) omeprazole 20 mg capsule,delayed 20 mg PO DAILY 10/09/17 08/11/22 release ondansetron HCl 4 mg tablet 4 mg PO TID PRN nausea 10/09/17 08/11/22 (Zofran) polyethylene glycol 3350 17 gram 17 gram PO DAILY PRN Constipation 10/09/17 08/11/22 oral powder packet prednisone 5 mg tablet 5 mg PO DAILY 10/09/17 08/11/22 topiramate 25 mg capsule,extended 50 mg PO BEDTIME 10/09/17 08/11/22 release 24 hr digestive enzymes 1 cap PO DAILY PRN Abdominal 06/10/22 08/11/22 Discomfort potassium chloride 20 mEq 20 meq PO DAILY 06/10/22 08/11/22 tablet,extended release(part/cryst) cholecalciferol (vitamin D3) 125 125 mcg PO DAILY 06/15/22 08/11/22 mcg (5,000 unit) capsule Previous Rx's Medication Instructions Recorded lidocaine 5 % topical patch 1 patch topical DAILY PRN back 07/08/22 (Lidoderm) pain #30 ea methocarbamol 500 mg tablet 500 mg PO BID PRN muscle spasm #20 07/08/22 tabs loperamide 2 mg capsule 2 mg PO DAILY PRN Diarrhea 14 days 07/12/22 #0 caps levofloxacin 750 mg tablet 750 mg PO Q48H #3 tabs 08/16/22 levothyroxine 112 mcg tablet 112 mcg PO DAILY #30 tabs 08/16/22 (Synthroid) oxycodone-acetaminophen 5 mg-325 1 tab PO QID PRN Back Pain 7 days 08/16/22 mg tablet #20 tabs sertraline 100 mg tablet 100 mg PO DAILY #30 tabs 08/16/22 simvastatin 10 mg tablet 10 mg PO BEDTIME #30 tabs 08/16/22 Allergies Allergy/AdvReac Type Severity Reaction Status Date / Time amoxicillin [AMOXICILLIN] Allergy Severe rash and Verified 06/10/22 09:13 diarrhea oxybutynin Allergy Severe tongue Verified 06/10/22 09:13 swells Sulfa (Sulfonamide Allergy Severe fever and Verified 06/10/22 09:13 Antibiotics) rash [SULFA (SULFONAMIDE ANTIBIOTICS)] NSAIDS (Non-Steroidal Allergy Unknown Verified 06/10/22 09:13 Anti-Inflamma [NSAIDS (NON-STEROIDAL ANTI-INFLAMMA] cephalexin Allergy rash Verified 06/10/22 09:13 codeine [CODEINE] AdvReac Mild headache Verified 06/10/22 09:13 duloxetine [From CYMBALTA] AdvReac Mild vomiting Verified 06/10/22 09:13 morphine [MORPHINE] AdvReac Mild vomiting Verified 06/10/22 09:13 nitrofurantoin AdvReac Mild vomiting Verified 06/10/22 09:13 [From MACROBID] carisoprodol AdvReac Verified 06/10/22 09:13 piroxicam [From Feldene] AdvReac Verified 06/10/22 09:13 tolterodine AdvReac Verified 06/10/22 09:13 Review of Systems <Tereza Pablo MD - Last Filed: 09/05/22 19:59> Review of Systems Narrative: Pertinent positive and negative findings as per HPI Patient History <Tereza Pablo MD - Last Filed: 09/05/22 19:59> Medical History Atypical migraine Bilateral lower extremity edema Chicken pox (~1951) Chronic adrenal insufficiency Chronic anticoagulation Chronic back pain (~1964) Chronic diarrhea Chronic kidney disease Fecal incontinence (~2021) Headache (~2021) Hearing loss (~2011) History of DVT (deep vein thrombosis) History of kidney disease (~2002) Hyperlipidemia Hypertension Interstitial lung disease Irritable bowel syndrome (~2012) Measles (~1951) Mixed hyperlipidemia Mumps (~1951) 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 Stage 3b chronic kidney disease (CKD) Uses walker Venous (peripheral) insufficiency Surgical History Anesthesia History of back surgery (~2012) History of throat surgery (~1974) Family History Father Cancer History of heart disease Mother Hypertension Social History household members: spouse Smoking Status: Never smoker alcohol intake: former Smoking Status: Never smoker alcohol intake frequency: 0-2 drinks per day Substance Use Type: does not use Exam <Tereza Pablo MD - Last Filed: 09/05/22 19:59> Initial Vital Signs Initial Vital Signs: Vital Signs Pulse Rate 140 H 08/10/22 18:35 Respiratory Rate 26 H 08/10/22 18:35 Pulse Oximetry 97 08/10/22 18:35 General: Older-appearing woman, agitated that moving all extremities HEENT: Very dry mucous membranes, normal sclera with reactive pupils, laceration over her left confucianism and right upper forehead. Neck: No JVD, supple Respiratory: Lungs are clear to auscultation, no wheezing no rales no rhonchi. Full and symmetrical air movement, no respiratory distress Cardiac: Tachycardic, irregular, no obvious murmurs Abdomen: Soft, mild diffuse tenderness perhaps more in the left lower quadrant without rebound or guarding good bowel tones, no flank pain Skin: Dry, multiple bruises over upper extremities lower extremities and hips all in various stages of healing. In addition to the lacerations on the head mentioned above, she has an old laceration on the left carrasco that is open and healing by secondary intention that does not appear to be acutely infected. A smaller 1 on the right carrasco that is also healing. 1. On the right calf that was sutured today. Neurologic: Moving all extremities however she is increasing confused and agitated Extremities: Multiple bruises in various stages of healing, chronic venous stasis changes, 2+ lower extremity edema Psych: Cooperative, confused <Vinny Mckeon PA-C - Last Filed: 08/10/22 20:37> Initial Vital Signs Initial Vital Signs: Vital Signs Pulse Rate 140 H 08/10/22 18:35 Respiratory Rate 26 H 08/10/22 18:35 Pulse Oximetry 97 08/10/22 18:35 <Vinny Mckeon PA-C - Last Filed: 08/10/22 20:37> Laceration Repair Laceration 1: Time of procedure: 20:31 Site: lower extremity (R lateral calf ) Side (If applicable): right Size (cm): 5 Description: linear Depth: simple, single layer Local Anesthetic: lidocaine 1% Amount of anesthesia used (mL): 5 Pre-repair: irrigated extensively and cleansed with chlorhexadine Skin layer closed with: other (Ethilon) Skin layer suture size: 4-0 Number of sutures: 9 Technique: simple, interrupted Laceration 2: Time of procedure: 20:33 Site: other (Forehead (midline)) Size (cm): 3 Description: linear Depth: simple, single layer Local Anesthetic: lidocaine 1% Amount of anesthesia used (mL): 3 Pre-repair: irrigated extensively and cleansed with chlorhexadine Skin layer closed with: other (Ethilon) Skin layer suture size: 5-0 Number of sutures: 4 Technique: simple, interrupted Laceration 3: Time of procedure: 20:35 Site: other (Left confucianism) Side (If applicable): left Size (cm): 5 Description: linear Depth: simple, single layer Local Anesthetic: lidocaine 1% Amount of anesthesia used (mL): 4 Pre-repair: irrigated extensively and cleansed with chlorhexadine Skin layer closed with: other (Ethilon) Skin layer suture size: 5-0 Number of sutures: 8 Technique: simple, interrupted Course <Tereza Pablo MD - Last Filed: 09/05/22 19:59> Orders Ordered: Discontinued Medications Acetaminophen (Acetaminophen 325 Mg Tablet) 650 mg PO NOW ONE Stop: 08/10/22 18:44 Last Admin: 08/10/22 18:56 Dose: Not Given Documented By: AMU Acetaminophen (Acetaminophen 650 Mg Supp) 650 mg [place] NOW ONE Stop: 08/10/22 18:56 Last Admin: 08/10/22 19:20 Dose: 650 mg Documented By: SPF Acetaminophen (Acetaminophen 325 Mg Tablet) 325 mg PO NOW ONE Stop: 08/10/22 22:24 Last Admin: 08/10/22 22:42 Dose: 325 mg Documented By: SPF Acetaminophen (Acetaminophen 325 Mg Tablet) 650 mg PO Q6H PRN PRN Reason: Fever/Mild Pain (1-3) Last Admin: 08/16/22 12:26 Dose: 650 mg Documented By: Admin: 08/15/22 17:56 Dose: 650 mg Documented By: Admin: 08/15/22 09:34 Dose: 650 mg Documented By: Admin: 08/14/22 16:38 Dose: 650 mg Documented By: Admin: 08/13/22 14:42 Dose: 650 mg Documented By: Admin: 08/12/22 16:20 Dose: 650 mg Documented By: Admin: 08/12/22 09:19 Dose: 650 mg Documented By: Admin: 08/11/22 17:43 Dose: 650 mg Documented By: DREA Al Hydrox/Mg Hydrox/Simethicone (Mag Hydrox/Alum/Simeth 30 Ml Udc) 30 ml PO Q6HR PRN PRN Reason: Dyspepsia Apixaban (Apixaban 5 Mg Tablet) 2.5 mg PO BID [facility] Apixaban (Apixaban 5 Mg Tablet) 5 mg PO BID [facility] Last Admin: 08/12/22 09:19 Dose: 5 mg Documented By: Admin: 08/11/22 20:20 Dose: 5 mg Documented By: VELASQUEZ Atorvastatin Calcium (Atorvastatin 20 Mg Tablet) 10 mg PO BEDTIME [facility] Last Admin: 08/15/22 22:12 Dose: 10 mg Documented By: MS(2) Admin: 08/14/22 20:59 Dose: 10 mg Documented By: Admin: 08/13/22 20:12 Dose: 10 mg Documented By: MS(3) Admin: 08/12/22 20:49 Dose: 10 mg Documented By: Admin: 08/11/22 20:20 Dose: 10 mg Documented By: VELASQUEZ Calcium Carbonate (Calcium Carbonate 500 Mg Tab) 1,000 mg PO Q4HR PRN PRN Reason: Dyspepsia Citalopram Hydrobromide (Citalopram 10 Mg Tablet) 20 mg PO DAILY [facility] Last Admin: 08/16/22 08:28 Dose: 20 mg Documented By: Admin: 08/15/22 09:36 Dose: 20 mg Documented By: Admin: 08/14/22 08:47 Dose: 20 mg Documented By: Admin: 08/13/22 10:37 Dose: 20 mg Documented By: SUZETTE Enoxaparin Sodium (Enoxaparin 30 Mg/0.3 Ml Syringe) 30 mg SUBCUT DAILY [facility] Last Admin: 08/11/22 08:45 Dose: 30 mg Documented By: GRUPO Enoxaparin Sodium (Enoxaparin 40 Mg/0.4 Ml Syringe) 40 mg SUBCUT DAILY [facility] Last Admin: 08/16/22 08:28 Dose: 40 mg Documented By: Admin: 08/15/22 09:36 Dose: 40 mg Documented By: Admin: 08/14/22 08:48 Dose: 40 mg Documented By: BETTY Hydromorphone HCl (Hydromorphone 0.5 Mg Inj) 0.2 mg IV Q15MIN PRN PRN Reason: Pain, Last Admin: 08/10/22 21:54 Dose: 0.2 mg Documented By: Admin: 08/10/22 19:21 Dose: 0.2 mg Documented By: SPF Hydromorphone HCl (Hydromorphone 0.5 Mg Inj) 0.5 mg IV Q15MIN PRN PRN Reason: Pain, Last Admin: 08/10/22 22:56 Dose: 0.5 mg Documented By: SPF Hydromorphone HCl (Hydromorphone 0.5 Mg Inj) 0.5 mg IV Q2H PRN PRN Reason: Pain, Moderate (4-10 Last Admin: 08/11/22 09:23 Dose: 0.5 mg Documented By: Admin: 08/11/22 02:51 Dose: 0.5 mg Documented By: Hydromorphone HCl (Hydromorphone 0.5 Mg Inj) 0.25 mg IV Q4H PRN PRN Reason: Pain, Moderate (4-10 Last Admin: 08/13/22 18:03 Dose: 0.25 mg Documented By: Admin: 08/13/22 12:30 Dose: 0.25 mg Documented By: SUZETTE Hydromorphone HCl (Hydromorphone 1 Mg Inj) 1 mg IV Q3H PRN PRN Reason: Pain, Moderate (4-6) Last Admin: 08/16/22 12:25 Dose: 1 mg Documented By: Admin: 08/14/22 23:02 Dose: 1 mg Documented By: Admin: 08/13/22 22:11 Dose: 1 mg Documented By: (3) Sodium Chloride (Normal Saline 0.9%) 1,000 mls @ 1,000 mls/hr IV BOLUS ONE Stop: 08/10/22 19:54 Last Infusion: 08/10/22 21:04 Dose: 0 mls/hr Documented By: Admin: 08/10/22 18:55 Dose: 1,000 mls/hr Documented By: BETTYE Levofloxacin (Levaquin) 750 mg in 150 mls @ 100 mls/hr IV NOW ONE Stop: 08/10/22 23:34 Last Infusion: 08/10/22 23:45 Dose: 0 mls/hr Documented By: Admin: 08/10/22 22:13 Dose: 100 mls/hr Documented By: SPF Sodium Chloride (Normal Saline 0.9%) 1,000 mls @ 1,000 mls/hr IV BOLUS ONE Stop: 08/10/22 23:04 Last Infusion: 08/11/22 01:46 Dose: 0 mls/hr Documented By: Infusion: 08/10/22 23:44 Dose: 1,000 mls/hr Documented By: Admin: 08/10/22 22:21 Dose: 1,000 mls/hr Documented By: SPF Sodium Chloride (Normal Saline 0.9%) 1,000 mls @ 150 mls/hr IV CONT BRANDON Last Infusion: 08/10/22 22:16 Dose: 0 mls/hr Documented By: Admin: 08/10/22 22:16 Dose: 150 mls/hr Documented By: SPF Sodium Chloride (Normal Saline 0.9%) 1,000 mls @ 150 mls/hr IV CONT BR[facility]ON Stop: 08/11/22 06:14 Last Admin: 08/11/22 02:00 Dose: 150 mls/hr Documented By: SELENE Levofloxacin (Levaquin) 750 mg in 150 mls @ 100 mls/hr IV Q48H [facility] Last Infusion: 08/13/22 02:13 Dose: 100 mls/hr Documented By: (3) Admin: 08/12/22 22:43 Dose: 100 mls/hr Documented By: (3) Levofloxacin (Levofloxacin 250 Mg Tablet) 750 mg PO Q48H [facility] Stop: 08/20/22 22:01 Last Admin: 08/14/22 21:04 Dose: 750 mg Documented By: PATRIZIA Levofloxacin (Levofloxacin 250 Mg Tablet) 750 mg PO Q48H [facility] Stop: 08/22/22 21:01 Levofloxacin (Levofloxacin 250 Mg Tablet) 750 mg PO NOW ONE Stop: 08/16/22 11:04 Last Admin: 08/16/22 11:59 Dose: 750 mg Documented By: Levothyroxine Sodium (Levothyroxine 100 Mcg Tablet) 100 mcg PO 0600 [facility] Last Admin: 08/14/22 08:47 Dose: 100 mcg Documented By: Admin: 08/13/22 05:03 Dose: 100 mcg Documented By: (3) Admin: 08/12/22 06:03 Dose: 100 mcg Documented By: Admin: 08/11/22 06:01 Dose: 100 mcg Documented By: SELENE Levothyroxine Sodium (Levothyroxine 100 Mcg Tablet) 100 mcg PO DAILY@0600 [facility] Last Admin: 08/16/22 06:09 Dose: 100 mcg Documented By: (2) Admin: 08/15/22 06:01 Dose: 100 mcg Documented By: PATRIZIA Levothyroxine Sodium (Levothyroxine 25 Mcg Tablet) 25 mcg PO DAILY@0600 [facility] Last Admin: 08/16/22 06:09 Dose: 25 mcg Documented By: (2) Admin: 08/15/22 06:01 Dose: 25 mcg Documented By: PATRIZIA Lidocaine (Lidocaine Patch 1 Each Adh..Patch) 1 each TOP DAILY PRN PRN Reason: back pain Last Admin: 08/13/22 12:44 Dose: 1 each Documented By: Admin: 08/12/22 18:16 Dose: 1 each Documented By: Lidocaine (Remove Lidocaine Patch) 1 each TOP BEDTIME [facility] Last Admin: 08/15/22 22:13 Dose: Not Given Documented By: MS(2) Admin: 08/15/22 00:00 Dose: Not Given Documented By: Admin: 08/13/22 20:07 Dose: 1 each Documented By: (3) Admin: 08/12/22 22:25 Dose: Not Given Documented By: Admin: 08/11/22 20:21 Dose: 1 each Documented By: CB Lidocaine HCl (Lidocaine 1% 20 Ml) 20 ml INJ INTRA-OP ONE Stop: 08/10/22 19:29 Last Admin: 08/10/22 20:14 Dose: 20 ml Documented By: BS Loperamide HCl (Loperamide 2 Mg Capsule) 2 mg PO DAILY PRN PRN Reason: Diarrhea Lorazepam (Lorazepam 2 Mg/Ml Inj) 0.5 mg IV NOW ONE Stop: 08/11/22 03:45 Last Admin: 08/11/22 04:07 Dose: 0.5 mg Documented By: SELENE Methocarbamol (Methocarbamol 500 Mg Tablet) 500 mg PO BID PRN PRN Reason: muscle spasm Last Admin: 08/14/22 20:57 Dose: 500 mg Documented By: Admin: 08/13/22 20:13 Dose: 500 mg Documented By: (3) Admin: 08/13/22 18:03 Dose: 500 mg Documented By: Admin: 08/13/22 12:43 Dose: 500 mg Documented By: Admin: 08/12/22 09:19 Dose: 500 mg Documented By: Metoprolol Succinate (Metoprolol Er 25 Mg Tablet) 25 mg PO BID [facility] Last Admin: 08/16/22 08:28 Dose: 25 mg Documented By: Admin: 08/15/22 22:11 Dose: 25 mg Documented By: MS(2) Admin: 08/15/22 09:36 Dose: 25 mg Documented By: Admin: 08/14/22 20:57 Dose: 25 mg Documented By: Admin: 08/14/22 18:27 Dose: Not Given Documented By: LDV Metoprolol Tartrate (Metoprolol Tartrate 5 Mg/5 Ml Inj) 5 mg IV Q15M PRN PRN Reason: Hypertension Stop: 08/11/22 02:01 Naloxone HCl (Naloxone 0.4 Mg/Ml Vial) 0.2 mg IV Q2MIN PRN PRN Reason: Opiate Reversal Non-Formulary Medication (Simvastatin) 10 mg PO DAILY [facility] Non-Formulary Medication (Levothyroxine) 100 mcg PO DAILY [facility] Non-Formulary Medication (Omeprazole) 20 mg PO DAILY [facility] Non-Formulary Medication (Topiramate) 50 mg PO BEDTIME [facility] Ondansetron HCl (Ondansetron 4 Mg/2 Ml Inj) 4 mg IV NOW ONE Stop: 08/10/22 19:17 Last Admin: 08/10/22 19:19 Dose: 4 mg Documented By: MEL Ondansetron HCl (Ondansetron 4 Mg/2 Ml Inj) 4 mg IV Q8HR PRN PRN Reason: Nausea And Vomiting Last Admin: 08/16/22 06:04 Dose: 4 mg Documented By: (2) Admin: 08/15/22 06:08 Dose: 4 mg Documented By: Admin: 08/14/22 08:53 Dose: 4 mg Documented By: BETTY Oxycodone HCl (Oxycodone Ir 5 Mg Tablet) 5 mg PO Q3H PRN PRN Reason: Pain, Moderate (4-10) Oxycodone HCl (Oxycodone Ir 5 Mg Tablet) 5 mg PO Q4H PRN PRN Reason: Pain, Moderate (4-10) Last Admin: 08/16/22 11:59 Dose: 5 mg Documented By: Admin: 08/15/22 14:20 Dose: 5 mg Documented By: Admin: 08/14/22 20:57 Dose: 5 mg Documented By: Admin: 08/14/22 16:38 Dose: 5 mg Documented By: Admin: 08/13/22 14:41 Dose: 5 mg Documented By: Admin: 08/12/22 16:20 Dose: 5 mg Documented By: Admin: 08/12/22 09:18 Dose: 5 mg Documented By: Admin: 08/12/22 04:29 Dose: 5 mg Documented By: Admin: 08/11/22 20:20 Dose: 5 mg Documented By: VELASQUEZ Pantoprazole Sodium (Pantoprazole Dr 20 Mg Tablet) 20 mg PO 0600 [facility] Last Admin: 08/16/22 06:04 Dose: 20 mg Documented By: (2) Admin: 08/15/22 06:01 Dose: 20 mg Documented By: Admin: 08/14/22 08:47 Dose: 20 mg Documented By: Admin: 08/13/22 05:03 Dose: 20 mg Documented By: (3) Admin: 08/12/22 06:03 Dose: 20 mg Documented By: Admin: 08/11/22 06:01 Dose: 20 mg Documented By: SELENE Prednisone (Prednisone 5 Mg Tablet) 5 mg PO DAILY [facility] Last Admin: 08/16/22 08:28 Dose: 5 mg Documented By: Admin: 08/15/22 09:34 Dose: 5 mg Documented By: Admin: 08/14/22 08:48 Dose: 5 mg Documented By: Admin: 08/13/22 10:37 Dose: 5 mg Documented By: Admin: 08/12/22 09:19 Dose: 5 mg Documented By: Admin: 08/11/22 08:43 Dose: 5 mg Documented By: GRUPO Sennosides (Sennosides 8.6 Mg Tablet) 17.2 mg PO BEDTIME [facility] Last Admin: 08/12/22 20:50 Dose: 17.2 mg Documented By: Admin: 08/11/22 20:20 Dose: 17.2 mg Documented By: VELASQUEZ Sennosides (Sennosides 8.6 Mg Tablet) 8.6 mg PO BEDTIME PRN PRN Reason: Constipation Last Admin: 08/16/22 09:30 Dose: 8.6 mg Documented By: Sertraline HCl (Sertraline 50 Mg Tablet) 100 mg PO DAILY [facility] Last Admin: 08/11/22 08:43 Dose: 100 mg Documented By: GRUPO Sodium Chloride (Sodium Chloride 0.9% Flush) 10 ml IV BID [facility] Last Admin: 08/16/22 08:29 Dose: 10 ml Documented By: Admin: 08/16/22 02:09 Dose: 10 ml Documented By: (2) Admin: 08/15/22 09:36 Dose: 10 ml Documented By: MARY Topiramate (Topiramate 25 Mg Tablet) 50 mg PO BEDTIME [facility] Last Admin: 08/12/22 20:49 Dose: 50 mg Documented By: Admin: 08/11/22 20:20 Dose: 50 mg Documented By: VELASQUEZ Topiramate (Topiramate 25 Mg Tablet) 25 mg PO BEDTIME [facility] Last Admin: 08/15/22 22:12 Dose: 25 mg Documented By: MS(2) Admin: 08/14/22 20:57 Dose: 25 mg Documented By: Admin: 08/13/22 20:13 Dose: 25 mg Documented By: MS(3) Vital Signs Vital signs: Vital Signs - 8 hr 08/10/22 18:36 08/10/22 18:35 08/10/22 18:38 Temperature 101.3 F H Pulse Rate 128 H 140 H Respiratory Rate 36 H 26 H Blood Pressure 155/110 H 155/110 H Pulse Oximetry 98 97 Oxygen Delivery Method Room Air 08/10/22 18:38 08/10/22 19:14 08/10/22 19:30 Temperature Pulse Rate 135 H 138 H 160 H Respiratory Rate 33 H 39 H 45 H Blood Pressure Pulse Oximetry 97 96 Oxygen Delivery Method 08/10/22 19:32 08/10/22 19:32 08/10/22 20:00 Temperature 102.0 F H Pulse Rate 131 H 138 H Respiratory Rate 38 H 52 H Blood Pressure 147/118 H Pulse Oximetry 100 96 Oxygen Delivery Method 08/10/22 20:05 08/10/22 20:05 08/10/22 20:30 Temperature 102.0 F H Pulse Rate 132 H Respiratory Rate 33 H Blood Pressure 134/86 141/102 H Pulse Oximetry 93 Oxygen Delivery Method 08/10/22 20:30 08/10/22 20:42 08/10/22 21:00 Temperature 101.5 F H 101.5 F H Pulse Rate 143 H Respiratory Rate 34 H Blood Pressure 174/100 H Pulse Oximetry 92 Oxygen Delivery Method Room Air 08/10/22 21:00 08/10/22 21:30 08/10/22 21:30 Temperature 101.7 F H 101.7 F H Pulse Rate 150 H 153 H Respiratory Rate 37 H 36 H Blood Pressure 157/75 H Pulse Oximetry 93 92 Oxygen Delivery Method Room Air Room Air 08/10/22 22:00 08/10/22 22:00 08/10/22 22:15 Temperature 101.7 F H Pulse Rate 126 H Respiratory Rate 27 H Blood Pressure 159/121 H 171/119 H Pulse Oximetry 94 Oxygen Delivery Method Room Air 08/10/22 22:15 08/10/22 22:36 08/10/22 22:42 Temperature 101.5 F H 101.3 F H 101.3 F H Pulse Rate 139 H 139 H Respiratory Rate 31 H 34 H Blood Pressure Pulse Oximetry 95 Oxygen Delivery Method Room Air 08/10/22 23:00 08/10/22 23:30 08/10/22 23:41 Temperature 101.1 F H 100.9 F H 100.9 F H Pulse Rate 164 H 143 H Respiratory Rate 34 H 25 H Blood Pressure Pulse Oximetry 94 93 Oxygen Delivery Method Room Air Room Air <Vinny Mckeon PA-C - Last Filed: 08/10/22 20:37> Orders Ordered: Discontinued Medications Acetaminophen (Acetaminophen 325 Mg Tablet) 650 mg PO NOW ONE Stop: 08/10/22 18:44 Last Admin: 08/10/22 18:56 Dose: Not Given Documented By: AMU Acetaminophen (Acetaminophen 650 Mg Supp) 650 mg [place] NOW ONE Stop: 08/10/22 18:56 Last Admin: 08/10/22 19:20 Dose: 650 mg Documented By: SPF Acetaminophen (Acetaminophen 325 Mg Tablet) 325 mg PO NOW ONE Stop: 08/10/22 22:24 Last Admin: 08/10/22 22:42 Dose: 325 mg Documented By: SPF Acetaminophen (Acetaminophen 325 Mg Tablet) 650 mg PO Q6H PRN PRN Reason: Fever/Mild Pain (1-3) Last Admin: 08/16/22 12:26 Dose: 650 mg Documented By: Admin: 08/15/22 17:56 Dose: 650 mg Documented By: Admin: 08/15/22 09:34 Dose: 650 mg Documented By: Admin: 08/14/22 16:38 Dose: 650 mg Documented By: Admin: 08/13/22 14:42 Dose: 650 mg Documented By: Admin: 08/12/22 16:20 Dose: 650 mg Documented By: Admin: 08/12/22 09:19 Dose: 650 mg Documented By: Admin: 08/11/22 17:43 Dose: 650 mg Documented By: DREA Al Hydrox/Mg Hydrox/Simethicone (Mag Hydrox/Alum/Simeth 30 Ml Udc) 30 ml PO Q6HR PRN PRN Reason: Dyspepsia Apixaban (Apixaban 5 Mg Tablet) 2.5 mg PO BID [facility]ON Apixaban (Apixaban 5 Mg Tablet) 5 mg PO BID [facility] Last Admin: 08/12/22 09:19 Dose: 5 mg Documented By: Admin: 08/11/22 20:20 Dose: 5 mg Documented By: VELASQUEZ Atorvastatin Calcium (Atorvastatin 20 Mg Tablet) 10 mg PO BEDTIME [facility] Last Admin: 08/15/22 22:12 Dose: 10 mg Documented By: (2) Admin: 08/14/22 20:59 Dose: 10 mg Documented By: Admin: 08/13/22 20:12 Dose: 10 mg Documented By: (3) Admin: 08/12/22 20:49 Dose: 10 mg Documented By: Admin: 08/11/22 20:20 Dose: 10 mg Documented By: CB Calcium Carbonate (Calcium Carbonate 500 Mg Tab) 1,000 mg PO Q4HR PRN PRN Reason: Dyspepsia Citalopram Hydrobromide (Citalopram 10 Mg Tablet) 20 mg PO DAILY [facility] Last Admin: 08/16/22 08:28 Dose: 20 mg Documented By: Admin: 08/15/22 09:36 Dose: 20 mg Documented By: Admin: 08/14/22 08:47 Dose: 20 mg Documented By: Admin: 08/13/22 10:37 Dose: 20 mg Documented By: SUZETTE Enoxaparin Sodium (Enoxaparin 30 Mg/0.3 Ml Syringe) 30 mg SUBCUT DAILY [facility] Last Admin: 08/11/22 08:45 Dose: 30 mg Documented By: GRUPO Enoxaparin Sodium (Enoxaparin 40 Mg/0.4 Ml Syringe) 40 mg SUBCUT DAILY [facility] Last Admin: 08/16/22 08:28 Dose: 40 mg Documented By: Admin: 08/15/22 09:36 Dose: 40 mg Documented By: Admin: 08/14/22 08:48 Dose: 40 mg Documented By: LDV Hydromorphone HCl (Hydromorphone 0.5 Mg Inj) 0.2 mg IV Q15MIN PRN PRN Reason: Pain, Last Admin: 08/10/22 21:54 Dose: 0.2 mg Documented By: Admin: 08/10/22 19:21 Dose: 0.2 mg Documented By: SPF Hydromorphone HCl (Hydromorphone 0.5 Mg Inj) 0.5 mg IV Q15MIN PRN PRN Reason: Pain, Last Admin: 08/10/22 22:56 Dose: 0.5 mg Documented By: SPF Hydromorphone HCl (Hydromorphone 0.5 Mg Inj) 0.5 mg IV Q2H PRN PRN Reason: Pain, Moderate (4-10 Last Admin: 08/11/22 09:23 Dose: 0.5 mg Documented By: Admin: 08/11/22 02:51 Dose: 0.5 mg Documented By: SELENE Hydromorphone HCl (Hydromorphone 0.5 Mg Inj) 0.25 mg IV Q4H PRN PRN Reason: Pain, Moderate (4-10 Last Admin: 08/13/22 18:03 Dose: 0.25 mg Documented By: Admin: 08/13/22 12:30 Dose: 0.25 mg Documented By: SUZETTE Hydromorphone HCl (Hydromorphone 1 Mg Inj) 1 mg IV Q3H PRN PRN Reason: Pain, Moderate (4-6) Last Admin: 08/16/22 12:25 Dose: 1 mg Documented By: Admin: 08/14/22 23:02 Dose: 1 mg Documented By: Admin: 08/13/22 22:11 Dose: 1 mg Documented By: (3) Sodium Chloride (Normal Saline 0.9%) 1,000 mls @ 1,000 mls/hr IV BOLUS ONE Stop: 08/10/22 19:54 Last Infusion: 08/10/22 21:04 Dose: 0 mls/hr Documented By: Admin: 08/10/22 18:55 Dose: 1,000 mls/hr Documented By: BETTYE Levofloxacin (Levaquin) 750 mg in 150 mls @ 100 mls/hr IV NOW ONE Stop: 08/10/22 23:34 Last Infusion: 08/10/22 23:45 Dose: 0 mls/hr Documented By: Admin: 08/10/22 22:13 Dose: 100 mls/hr Documented By: SPF Sodium Chloride (Normal Saline 0.9%) 1,000 mls @ 1,000 mls/hr IV BOLUS ONE Stop: 08/10/22 23:04 Last Infusion: 08/11/22 01:46 Dose: 0 mls/hr Documented By: Infusion: 08/10/22 23:44 Dose: 1,000 mls/hr Documented By: Admin: 08/10/22 22:21 Dose: 1,000 mls/hr Documented By: MEL Sodium Chloride (Normal Saline 0.9%) 1,000 mls @ 150 mls/hr IV CONT BRANDON Last Infusion: 08/10/22 22:16 Dose: 0 mls/hr Documented By: Admin: 08/10/22 22:16 Dose: 150 mls/hr Documented By: MEL Sodium Chloride (Normal Saline 0.9%) 1,000 mls @ 150 mls/hr IV CONT BRANDON Stop: 08/11/22 06:14 Last Admin: 08/11/22 02:00 Dose: 150 mls/hr Documented By: SELENE Levofloxacin (Levaquin) 750 mg in 150 mls @ 100 mls/hr IV Q48H BRANDON Last Infusion: 08/13/22 02:13 Dose: 100 mls/hr Documented By: (3) Admin: 08/12/22 22:43 Dose: 100 mls/hr Documented By: TRI3) Levofloxacin (Levofloxacin 250 Mg Tablet) 750 mg PO Q48H BRANDON Stop: 08/20/22 22:01 Last Admin: 08/14/22 21:04 Dose: 750 mg Documented By: PATRIZIA Levofloxacin (Levofloxacin 250 Mg Tablet) 750 mg PO Q48H BRANDON Stop: 08/22/22 21:01 Levofloxacin (Levofloxacin 250 Mg Tablet) 750 mg PO NOW ONE Stop: 08/16/22 11:04 Last Admin: 08/16/22 11:59 Dose: 750 mg Documented By: Levothyroxine Sodium (Levothyroxine 100 Mcg Tablet) 100 mcg PO 0600 BRANDON Last Admin: 08/14/22 08:47 Dose: 100 mcg Documented By: Admin: 08/13/22 05:03 Dose: 100 mcg Documented By: (3) Admin: 08/12/22 06:03 Dose: 100 mcg Documented By: Admin: 08/11/22 06:01 Dose: 100 mcg Documented By: SELENE Levothyroxine Sodium (Levothyroxine 100 Mcg Tablet) 100 mcg PO DAILY@0600 [facility] Last Admin: 08/16/22 06:09 Dose: 100 mcg Documented By: (2) Admin: 08/15/22 06:01 Dose: 100 mcg Documented By: PATRIZIA Levothyroxine Sodium (Levothyroxine 25 Mcg Tablet) 25 mcg PO DAILY@0600 [facility] Last Admin: 08/16/22 06:09 Dose: 25 mcg Documented By: (2) Admin: 08/15/22 06:01 Dose: 25 mcg Documented By: PATRIZIA Lidocaine (Lidocaine Patch 1 Each Adh..Patch) 1 each TOP DAILY PRN PRN Reason: back pain Last Admin: 08/13/22 12:44 Dose: 1 each Documented By: Admin: 08/12/22 18:16 Dose: 1 each Documented By: Lidocaine (Remove Lidocaine Patch) 1 each TOP BEDTIME [facility] Last Admin: 08/15/22 22:13 Dose: Not Given Documented By: (2) Admin: 08/15/22 00:00 Dose: Not Given Documented By: Admin: 08/13/22 20:07 Dose: 1 each Documented By: (3) Admin: 08/12/22 22:25 Dose: Not Given Documented By: Admin: 08/11/22 20:21 Dose: 1 each Documented By: VELASQUEZ Lidocaine HCl (Lidocaine 1% 20 Ml) 20 ml INJ INTRA-OP ONE Stop: 08/10/22 19:29 Last Admin: 08/10/22 20:14 Dose: 20 ml Documented By: BETTYE Loperamide HCl (Loperamide 2 Mg Capsule) 2 mg PO DAILY PRN PRN Reason: Diarrhea Lorazepam (Lorazepam 2 Mg/Ml Inj) 0.5 mg IV NOW ONE Stop: 08/11/22 03:45 Last Admin: 08/11/22 04:07 Dose: 0.5 mg Documented By: SELENE Methocarbamol (Methocarbamol 500 Mg Tablet) 500 mg PO BID PRN PRN Reason: muscle spasm Last Admin: 08/14/22 20:57 Dose: 500 mg Documented By: Admin: 08/13/22 20:13 Dose: 500 mg Documented By: (3) Admin: 08/13/22 18:03 Dose: 500 mg Documented By: Admin: 08/13/22 12:43 Dose: 500 mg Documented By: Admin: 08/12/22 09:19 Dose: 500 mg Documented By: Metoprolol Succinate (Metoprolol Er 25 Mg Tablet) 25 mg PO BID [facility] Last Admin: 08/16/22 08:28 Dose: 25 mg Documented By: Admin: 08/15/22 22:11 Dose: 25 mg Documented By: MS(2) Admin: 08/15/22 09:36 Dose: 25 mg Documented By: Admin: 08/14/22 20:57 Dose: 25 mg Documented By: Admin: 08/14/22 18:27 Dose: Not Given Documented By: LDV Metoprolol Tartrate (Metoprolol Tartrate 5 Mg/5 Ml Inj) 5 mg IV Q15M PRN PRN Reason: Hypertension Stop: 08/11/22 02:01 Naloxone HCl (Naloxone 0.4 Mg/Ml Vial) 0.2 mg IV Q2MIN PRN PRN Reason: Opiate Reversal Non-Formulary Medication (Simvastatin) 10 mg PO DAILY [facility] Non-Formulary Medication (Levothyroxine) 100 mcg PO DAILY [facility] Non-Formulary Medication (Omeprazole) 20 mg PO DAILY [facility] Non-Formulary Medication (Topiramate) 50 mg PO BEDTIME [facility] Ondansetron HCl (Ondansetron 4 Mg/2 Ml Inj) 4 mg IV NOW ONE Stop: 08/10/22 19:17 Last Admin: 08/10/22 19:19 Dose: 4 mg Documented By: MEL Ondansetron HCl (Ondansetron 4 Mg/2 Ml Inj) 4 mg IV Q8HR PRN PRN Reason: Nausea And Vomiting Last Admin: 08/16/22 06:04 Dose: 4 mg Documented By: MS(2) Admin: 08/15/22 06:08 Dose: 4 mg Documented By: Admin: 08/14/22 08:53 Dose: 4 mg Documented By: LDV Oxycodone HCl (Oxycodone Ir 5 Mg Tablet) 5 mg PO Q3H PRN PRN Reason: Pain, Moderate (4-10) Oxycodone HCl (Oxycodone Ir 5 Mg Tablet) 5 mg PO Q4H PRN PRN Reason: Pain, Moderate (4-10) Last Admin: 08/16/22 11:59 Dose: 5 mg Documented By: Admin: 08/15/22 14:20 Dose: 5 mg Documented By: Admin: 08/14/22 20:57 Dose: 5 mg Documented By: Admin: 08/14/22 16:38 Dose: 5 mg Documented By: Admin: 08/13/22 14:41 Dose: 5 mg Documented By: Admin: 08/12/22 16:20 Dose: 5 mg Documented By: Admin: 08/12/22 09:18 Dose: 5 mg Documented By: Admin: 08/12/22 04:29 Dose: 5 mg Documented By: Admin: 08/11/22 20:20 Dose: 5 mg Documented By: VELASQUEZ Pantoprazole Sodium (Pantoprazole Dr 20 Mg Tablet) 20 mg PO 0600 [facility] Last Admin: 08/16/22 06:04 Dose: 20 mg Documented By: (2) Admin: 08/15/22 06:01 Dose: 20 mg Documented By: Admin: 08/14/22 08:47 Dose: 20 mg Documented By: Admin: 08/13/22 05:03 Dose: 20 mg Documented By: (3) Admin: 08/12/22 06:03 Dose: 20 mg Documented By: Admin: 08/11/22 06:01 Dose: 20 mg Documented By: SELENE Prednisone (Prednisone 5 Mg Tablet) 5 mg PO DAILY [facility] Last Admin: 08/16/22 08:28 Dose: 5 mg Documented By: Admin: 08/15/22 09:34 Dose: 5 mg Documented By: Admin: 08/14/22 08:48 Dose: 5 mg Documented By: Admin: 08/13/22 10:37 Dose: 5 mg Documented By: Admin: 08/12/22 09:19 Dose: 5 mg Documented By: Admin: 08/11/22 08:43 Dose: 5 mg Documented By: GRUPO Sennosides (Sennosides 8.6 Mg Tablet) 17.2 mg PO BEDTIME [facility] Last Admin: 08/12/22 20:50 Dose: 17.2 mg Documented By: Admin: 08/11/22 20:20 Dose: 17.2 mg Documented By: VELASQUEZ Sennosides (Sennosides 8.6 Mg Tablet) 8.6 mg PO BEDTIME PRN PRN Reason: Constipation Last Admin: 08/16/22 09:30 Dose: 8.6 mg Documented By: Sertraline HCl (Sertraline 50 Mg Tablet) 100 mg PO DAILY [facility] Last Admin: 08/11/22 08:43 Dose: 100 mg Documented By: GRPUO Sodium Chloride (Sodium Chloride 0.9% Flush) 10 ml IV BID [facility] Last Admin: 08/16/22 08:29 Dose: 10 ml Documented By: Admin: 08/16/22 02:09 Dose: 10 ml Documented By: MS(2) Admin: 08/15/22 09:36 Dose: 10 ml Documented By: CLP Topiramate (Topiramate 25 Mg Tablet) 50 mg PO BEDTIME [facility] Last Admin: 08/12/22 20:49 Dose: 50 mg Documented By: Admin: 08/11/22 20:20 Dose: 50 mg Documented By: CB Topiramate (Topiramate 25 Mg Tablet) 25 mg PO BEDTIME [facility] Last Admin: 08/15/22 22:12 Dose: 25 mg Documented By: MS(2) Admin: 08/14/22 20:57 Dose: 25 mg Documented By: Admin: 08/13/22 20:13 Dose: 25 mg Documented By: MS(3) Vital Signs Vital signs: Vital Signs - 8 hr 08/10/22 18:36 08/10/22 18:35 08/10/22 18:38 Temperature 101.3 F H Pulse Rate 128 H 140 H Respiratory Rate 36 H 26 H Blood Pressure 155/110 H 155/110 H Pulse Oximetry 98 97 Oxygen Delivery Method Room Air 08/10/22 18:38 08/10/22 19:14 08/10/22 19:30 Temperature Pulse Rate 135 H 138 H 160 H Respiratory Rate 33 H 39 H 45 H Blood Pressure Pulse Oximetry 97 96 Oxygen Delivery Method 08/10/22 19:32 08/10/22 19:32 08/10/22 20:00 Temperature 102.0 F H Pulse Rate 131 H 138 H Respiratory Rate 38 H 52 H Blood Pressure 147/118 H Pulse Oximetry 100 96 Oxygen Delivery Method 08/10/22 20:05 08/10/22 20:05 08/10/22 20:30 Temperature 102.0 F H Pulse Rate 132 H Respiratory Rate 33 H Blood Pressure 134/86 141/102 H Pulse Oximetry 93 Oxygen Delivery Method 08/10/22 20:30 08/10/22 20:42 08/10/22 21:00 Temperature 101.5 F H 101.5 F H Pulse Rate 143 H Respiratory Rate 34 H Blood Pressure 174/100 H Pulse Oximetry 92 Oxygen Delivery Method Room Air 08/10/22 21:00 08/10/22 21:30 08/10/22 21:30 Temperature 101.7 F H 101.7 F H Pulse Rate 150 H 153 H Respiratory Rate 37 H 36 H Blood Pressure 157/75 H Pulse Oximetry 93 92 Oxygen Delivery Method Room Air Room Air 08/10/22 22:00 08/10/22 22:00 08/10/22 22:15 Temperature 101.7 F H Pulse Rate 126 H Respiratory Rate 27 H Blood Pressure 159/121 H 171/119 H Pulse Oximetry 94 Oxygen Delivery Method Room Air 08/10/22 22:15 08/10/22 22:36 08/10/22 22:42 Temperature 101.5 F H 101.3 F H 101.3 F H Pulse Rate 139 H 139 H Respiratory Rate 31 H 34 H Blood Pressure Pulse Oximetry 95 Oxygen Delivery Method Room Air 08/10/22 23:00 08/10/22 23:30 08/10/22 23:41 Temperature 101.1 F H 100.9 F H 100.9 F H Pulse Rate 164 H 143 H Respiratory Rate 34 H 25 H Blood Pressure Pulse Oximetry 94 93 Oxygen Delivery Method Room Air Room Air Medical Decision Making <Tereza Pablo MD - Last Filed: 09/05/22 19:59> Lab Data 08/15/22 04:50 08/15/22 04:50 Labs: Lab Results 08/10/22 08/10/22 08/10/22 Range/Units 18:53 18:53 18:53 WBC 18.8 H (4.5-11.0) X10^3/uL RBC 4.14 (4.0-5.2) X10^6/uL Hgb 12.3 (12.0-16.0) g/dL Hct 37.3 (36-46) % MCV 90.1 (80-100) fL MCH 29.7 (26-34) PG MCHC 33.0 (30-36) % RDW 16.2 H (11.6-14.8) % Plt Count 253 (150-400) X10^3/uL Neut % (Auto) 79.1 H (50-75) % Lymph % (Auto) 9.3 L (25-40) % Ralls % (Auto) 11.0 (3-14) % Eos % (Auto) 0.1 L (2-4) % Baso % (Auto) 0.5 (0-2) % Neut # (Auto) 97791 H (1722-8071) /uL Lymph # (Auto) 1800 (4354-6538) /uL Ralls # (Auto) 2100 H (0-900) /uL Eos # (Auto) 0 (0-450) /uL Baso # (Auto) 100 (0-100) /uL PT (10.1-12.7) SECONDS INR (0.9-1.3) Sodium 136 L (137-145) mmol/L Potassium 4.3 (3.4-5.1) mmol/L Chloride 105 (98-107) mmol/L Carbon Dioxide 23 (22-32) mmol/L BUN 27 H (7-17) mg/dL Creatinine 1.70 H (0.52-1.04) mg/dL Estimated GFR 31 L (>60) mL/min BUN/Creatinine Ratio 15.9 (6-22) Glucose 95 (80-110) mg/dL Lactate (0.7-2.1) mmol/L Calcium 8.9 (8.4-10.2) mg/dL Magnesium (1.6-2.3) mg/dL Total Bilirubin 1.5 H (0.2-1.3) mg/dL GGT (12-43) U/L AST 26 (14-36) IU/L ALT 25 (<35) IU/L Alkaline Phosphatase 159 H (38-126) U/L Troponin I 0.064 H (0.01-0.034) ng/mL Total Protein 6.1 L (6.3-8.2) g/dL Albumin 3.6 (3.5-5.0) g/dL Globulin 2.5 (1.7-4.1) g/dL Albumin/Globulin Ratio 1.4 (1.0-2.8) Lipase 24 (23-300) U/L Procalcitonin 0.38 (<0.5) ng/mL Urine Color Urine Appearance Urine pH (4.5-8.0) Ur Specific [place] (1.000-1.035) Urine Protein (Negative) Urine Glucose (UA) (Negative) g/dL Urine Ketones (NEGATIVE) Urine Occult Blood (Negative) Urine Nitrate (Negative) Urine Bilirubin (NEGATIVE) Urine Urobilinogen (0.2) E.U./dL Ur Leukocyte Esterase (NEGATIVE) Urine RBC (0-5/HPF) Urine WBC (0-5/HPF) Ur Squamous Epith Cells (0-5/HPF) Ur Transition Epith Cell (0-5/HPF) Urine Bacteria (None) Ur Culture Indicated? Chlamy pneumoniae PCR (Not Detect) Adenovirus (PCR) (Not Detect) B. pertussis DNA (PCR) (Not Detecte) B.parapertussis DNA PCR (Not Detecte) Coronavirus OC43 (PCR) (Not Detect) Coronavirus HKU1 (PCR) (Not Detect) Coronavirus 229E (PCR) (Not Detect) SARS-CoV-2 (PCR) (Not Detecte) Coronavirus NL63 (PCR) (Not Detect) Human Metapneumovir PCR (Not Detect) Influenza Type A (PCR) (Not Detect) Influenza Type B (PCR) (Not Detect) M. pneumoniae (PCR) (Not Detect) Parainfluenza 1 (PCR) (Not Detect) Parainfluenza 2 (PCR) (Not Detect) Parainfluenza 3 (PCR) (Not Detect) Parainfluenza 4 (PCR) (Not Detect) RSV (PCR) (Not Detect) Entero/Rhino (PCR) (Not Detect) Blood Type Antibody Screen 08/10/22 08/10/22 08/10/22 Range/Units 18:53 18:53 18:53 WBC (4.5-11.0) X10^3/uL RBC (4.0-5.2) X10^6/uL Hgb (12.0-16.0) g/dL Hct (36-46) % MCV (80-100) fL MCH (26-34) PG MCHC (30-36) % RDW (11.6-14.8) % Plt Count (150-400) X10^3/uL Neut % (Auto) (50-75) % Lymph % (Auto) (25-40) % Ralls % (Auto) (3-14) % Eos % (Auto) (2-4) % Baso % (Auto) (0-2) % Neut # (Auto) (7197-9281) /uL Lymph # (Auto) (4453-2662) /uL Ralls # (Auto) (0-900) /uL Eos # (Auto) (0-450) /uL Baso # (Auto) (0-100) /uL PT 15.5 H (10.1-12.7) SECONDS INR 1.3 (0.9-1.3) Sodium (137-145) mmol/L Potassium (3.4-5.1) mmol/L Chloride (98-107) mmol/L Carbon Dioxide (22-32) mmol/L BUN (7-17) mg/dL Creatinine (0.52-1.04) mg/dL Estimated GFR (>60) mL/min BUN/Creatinine Ratio (6-22) Glucose (80-110) mg/dL Lactate 1.8 (0.7-2.1) mmol/L Calcium (8.4-10.2) mg/dL Magnesium 1.8 (1.6-2.3) mg/dL Total Bilirubin (0.2-1.3) mg/dL GGT (12-43) U/L AST (14-36) IU/L ALT (<35) IU/L Alkaline Phosphatase (38-126) U/L Troponin I (0.01-0.034) ng/mL Total Protein (6.3-8.2) g/dL Albumin (3.5-5.0) g/dL Globulin (1.7-4.1) g/dL Albumin/Globulin Ratio (1.0-2.8) Lipase (23-300) U/L Procalcitonin (<0.5) ng/mL Urine Color Urine Appearance Urine pH (4.5-8.0) Ur Specific [place] (1.000-1.035) Urine Protein (Negative) Urine Glucose (UA) (Negative) g/dL Urine Ketones (NEGATIVE) Urine Occult Blood (Negative) Urine Nitrate (Negative) Urine Bilirubin (NEGATIVE) Urine Urobilinogen (0.2) E.U./dL Ur Leukocyte Esterase (NEGATIVE) Urine RBC (0-5/HPF) Urine WBC (0-5/HPF) Ur Squamous Epith Cells (0-5/HPF) Ur Transition Epith Cell (0-5/HPF) Urine Bacteria (None) Ur Culture Indicated? Chlamy pneumoniae PCR (Not Detect) Adenovirus (PCR) (Not Detect) B. pertussis DNA (PCR) (Not Detecte) B.parapertussis DNA PCR (Not Detecte) Coronavirus OC43 (PCR) (Not Detect) Coronavirus HKU1 (PCR) (Not Detect) Coronavirus 229E (PCR) (Not Detect) SARS-CoV-2 (PCR) (Not Detecte) Coronavirus NL63 (PCR) (Not Detect) Human Metapneumovir PCR (Not Detect) Influenza Type A (PCR) (Not Detect) Influenza Type B (PCR) (Not Detect) M. pneumoniae (PCR) (Not Detect) Parainfluenza 1 (PCR) (Not Detect) Parainfluenza 2 (PCR) (Not Detect) Parainfluenza 3 (PCR) (Not Detect) Parainfluenza 4 (PCR) (Not Detect) RSV (PCR) (Not Detect) Entero/Rhino (PCR) (Not Detect) Blood Type Antibody Screen 08/10/22 08/10/22 08/10/22 Range/Units 18:53 19:15 19:20 WBC (4.5-11.0) X10^3/uL RBC (4.0-5.2) X10^6/uL Hgb (12.0-16.0) g/dL Hct (36-46) % MCV (80-100) fL MCH (26-34) PG MCHC (30-36) % RDW (11.6-14.8) % Plt Count (150-400) X10^3/uL Neut % (Auto) (50-75) % Lymph % (Auto) (25-40) % Ralls % (Auto) (3-14) % Eos % (Auto) (2-4) % Baso % (Auto) (0-2) % Neut # (Auto) (2932-4398) /uL Lymph # (Auto) (7188-7374) /uL Ralls # (Auto) (0-900) /uL Eos # (Auto) (0-450) /uL Baso # (Auto) (0-100) /uL PT (10.1-12.7) SECONDS INR (0.9-1.3) Sodium (137-145) mmol/L Potassium (3.4-5.1) mmol/L Chloride (98-107) mmol/L Carbon Dioxide (22-32) mmol/L BUN (7-17) mg/dL Creatinine (0.52-1.04) mg/dL Estimated GFR (>60) mL/min BUN/Creatinine Ratio (6-22) Glucose (80-110) mg/dL Lactate (0.7-2.1) mmol/L Calcium (8.4-10.2) mg/dL Magnesium (1.6-2.3) mg/dL Total Bilirubin (0.2-1.3) mg/dL GGT 65 H (12-43) U/L AST (14-36) IU/L ALT (<35) IU/L Alkaline Phosphatase (38-126) U/L Troponin I (0.01-0.034) ng/mL Total Protein (6.3-8.2) g/dL Albumin (3.5-5.0) g/dL Globulin (1.7-4.1) g/dL Albumin/Globulin Ratio (1.0-2.8) Lipase (23-300) U/L Procalcitonin (<0.5) ng/mL Urine Color Urine Appearance Urine pH (4.5-8.0) Ur Specific [place] (1.000-1.035) Urine Protein (Negative) Urine Glucose (UA) (Negative) g/dL Urine Ketones (NEGATIVE) Urine Occult Blood (Negative) Urine Nitrate (Negative) Urine Bilirubin (NEGATIVE) Urine Urobilinogen (0.2) E.U./dL Ur Leukocyte Esterase (NEGATIVE) Urine RBC (0-5/HPF) Urine WBC (0-5/HPF) Ur Squamous Epith Cells (0-5/HPF) Ur Transition Epith Cell (0-5/HPF) Urine Bacteria (None) Ur Culture Indicated? Chlamy pneumoniae PCR Not detected (Not Detect) Adenovirus (PCR) Not detected (Not Detect) B. pertussis DNA (PCR) Not detected (Not Detecte) B.parapertussis DNA PCR Not detected (Not Detecte) Coronavirus OC43 (PCR) Not detected (Not Detect) Coronavirus HKU1 (PCR) Not detected (Not Detect) Coronavirus 229E (PCR) Not detected (Not Detect) SARS-CoV-2 (PCR) Detected H (Not Detecte) Coronavirus NL63 (PCR) Not detected (Not Detect) Human Metapneumovir PCR Not detected (Not Detect) Influenza Type A (PCR) Not detected (Not Detect) Influenza Type B (PCR) Not detected (Not Detect) M. pneumoniae (PCR) Not detected (Not Detect) Parainfluenza 1 (PCR) Not detected (Not Detect) Parainfluenza 2 (PCR) Not detected (Not Detect) Parainfluenza 3 (PCR) Not detected (Not Detect) Parainfluenza 4 (PCR) Not detected (Not Detect) RSV (PCR) Not detected (Not Detect) Entero/Rhino (PCR) Not detected (Not Detect) Blood Type O Positive Antibody Screen Negative 08/10/22 Range/Units 19:38 WBC (4.5-11.0) X10^3/uL RBC (4.0-5.2) X10^6/uL Hgb (12.0-16.0) g/dL Hct (36-46) % MCV (80-100) fL MCH (26-34) PG MCHC (30-36) % RDW (11.6-14.8) % Plt Count (150-400) X10^3/uL Neut % (Auto) (50-75) % Lymph % (Auto) (25-40) % [place] % (Auto) (3-14) % Eos % (Auto) (2-4) % Baso % (Auto) (0-2) % Neut # (Auto) (8560-6559) /uL Lymph # (Auto) (5736-1834) /uL [place]alls # (Auto) (0-900) /uL Eos # (Auto) (0-450) /uL Baso # (Auto) (0-100) /uL PT (10.1-12.7) SECONDS INR (0.9-1.3) Sodium (137-145) mmol/L Potassium (3.4-5.1) mmol/L Chloride (98-107) mmol/L Carbon Dioxide (22-32) mmol/L BUN (7-17) mg/dL Creatinine (0.52-1.04) mg/dL Estimated GFR (>60) mL/min BUN/Creatinine Ratio (6-22) Glucose (80-110) mg/dL Lactate (0.7-2.1) mmol/L Calcium (8.4-10.2) mg/dL Magnesium (1.6-2.3) mg/dL Total Bilirubin (0.2-1.3) mg/dL GGT (12-43) U/L AST (14-36) IU/L ALT (<35) IU/L Alkaline Phosphatase (38-126) U/L Troponin I (0.01-0.034) ng/mL Total Protein (6.3-8.2) g/dL Albumin (3.5-5.0) g/dL Globulin (1.7-4.1) g/dL Albumin/Globulin Ratio (1.0-2.8) Lipase (23-300) U/L Procalcitonin (<0.5) ng/mL Urine Color Yellow Urine Appearance Clear Urine pH 7.5 (4.5-8.0) Ur Specific [place] 1.015 (1.000-1.035) Urine Protein Trace H (Negative) Urine Glucose (UA) Negative (Negative) g/dL Urine Ketones Trace H (NEGATIVE) Urine Occult Blood Trace-intact (Negative) Urine Nitrate Positive H (Negative) Urine Bilirubin Negative (NEGATIVE) Urine Urobilinogen 1.0 (0.2) E.U./dL Ur Leukocyte Esterase Negative (NEGATIVE) Urine RBC 1-5/hpf (0-5/HPF) Urine WBC 30-100/hpf H (0-5/HPF) Ur Squamous Epith Cells 1-5 /hpf (0-5/HPF) Ur Transition Epith Cell 1-5/hpf (0-5/HPF) Urine Bacteria Many (>30) H (None) Ur Culture Indicated? Specimen cultured Chlamy pneumoniae PCR (Not Detect) Adenovirus (PCR) (Not Detect) B. pertussis DNA (PCR) (Not Detecte) B.parapertussis DNA PCR (Not Detecte) Coronavirus OC43 (PCR) (Not Detect) Coronavirus HKU1 (PCR) (Not Detect) Coronavirus 229E (PCR) (Not Detect) SARS-CoV-2 (PCR) (Not Detecte) Coronavirus NL63 (PCR) (Not Detect) Human Metapneumovir PCR (Not Detect) Influenza Type A (PCR) (Not Detect) Influenza Type B (PCR) (Not Detect) M. pneumoniae (PCR) (Not Detect) Parainfluenza 1 (PCR) (Not Detect) Parainfluenza 2 (PCR) (Not Detect) Parainfluenza 3 (PCR) (Not Detect) Parainfluenza 4 (PCR) (Not Detect) RSV (PCR) (Not Detect) Entero/Rhino (PCR) (Not Detect) Blood Type Antibody Screen MDM Narrative Medical decision making narrative: CC: Fall, on warfarin, confusion. This is a new problem with uncertain prognosis Complicating co-morbidities: Currently living at [facility] due to pain from pelvic ring fractures. Recent COVID diagnosis 10 days ago. Recurrent episodes sinus tachycardia with irregularity that is not atrial fibrillation, multiple prior DVTs continued warfarin anticoagulation, gait instability, baseline mild cognitive deficit but otherwise able to care for herself in clearly off from baseline today. Hypothyroidism. Data collected from: patient, daughter, medics Social determinants of health that may influence the patients condition: Acute confusion, currently in assisted facility Medical records reviewed: Records from [facility] including POLST form indicating full code, hospitalization discharge from July 12 and ER visit from July 30 reviewed Differential considered: Intracranial hemorrhage, sepsis, Covid19, acute coronary syndrome Exam documented above, pertinent findings include: Confused, agitated, multiple areas of bruising from recurrent falls. To old lacerations 3 new lacerations repaired today. Lab Test results independently reviewed as above. Pertinent findings: Respiratory panel shows positive for COVID CBC shows leukocytosis at 18.8, no anemia Chemistries show chronic stable creatinine at 1.7, Troponin is slightly elevated at 0.064 unsure if this is the primary process or secondary due to her sinus tachycardia Procalcitonin is not elevated INR is at 1.3 Catheterization urine sample shows white cells many bacteria positive nitrites, presumed urinary tract infection and antibiotics will be initiated Lactic acid is at 1.8 Independently reviewed EKG Sinus tachycardia at 1:28 a.m. with frequent PACs. No acute ischemic changes. Normal axis. Imaging studies independently reviewed: Head CT shows no intracranial hemorrhage Chest x-ray shows interstitium crowding and borderline enlarged heart. This may be a consequence of her COVID-19 X-rays of the humerus and forearm do not show any acute fractures. Question of ulnar styloid process abnormality does not correlate with any clinical pain. CT abd does not show any additional abnormalities or explanations for her altered mental status or fever. Treatments:fluids, levaquin, del cid catheter Re-evaluations:10pm discussed with daughter the leukocytosis, concern for developing sepsis and the urinary tract infection based on the catheterized urine. Based on a urine sample from February with a pansensitive E coli and allergies to amoxicillin Keflex and sulfa will start coverage with levofloxacin. Daughter is also concerned about the wound on the left anterior carrasco. Will continue to monitor this at this point it is a mild superficial infection at most, no abscess and no significantly surrounding cellulitis. Waiting CT abdomen results to confirm no additional findings prior to contacting hospitalist for admission. Discussion: Reviewed with [facility], will be admitted. While she is testing positive for COVID she does not have an oxygen man at this time and she tested positive 10 days ago. It is unclear whether she is actually experiencing any symptoms of COVID. She has not had actual disease documented previously but has had all shots and boosters. Additional Information: Severe Sepsis Criteria [ x ] bacterial source of infection suspected and documented [ ] 2 SIRS Criteria met [ x] HR >90 [ ] RR >20 [ x ] fever or hypothermia [ x] leukocytosis/leukopenia/bandemia [ ] Evidence of at least 1 organ system dysfunction [ ] Lactate > 2 [ ] BP < 90 or MAP <65, >40mm decrease from normal baseline [ ] Creat > 2.0 [ ] T. Bili > 2.0 [ ] platelet count < 100k [ x ] altered mental status [ ] mechanical ventilation [ ] provider documentation of severe sepsis Severe Sepsis Determination. the patient has been screened and [ x ] DOES meet criteria for severe sepsis [ ] DOES NOT meet criteria for severe sepsis Goal directed treatment Within 3 hours [ x ] blood cx drawn prior to abx [ x ] broad spectrum abx started [ x ] lactic acid level checked [ ] lactic redrawn within 6 hours if >2.0 Septic Shock Criteria [ ] lactic > 4 at any time [ ] SBP ,90 or MAP , 65 [ ] documentation of septic shock Time Septic Shock diagnosed: [ ] Septic Shock Determination. the patient has been screened and [ ] DOES meet criteria for septic shock [ x] DOES NOT meet criteria for septic shock Goal directed therapy within 3 hours of septic shock or initial hypotension [ x] 30ml/kg fluid [ x ] ABW used [ ] IBW (33.6) used due to BMI > 30 <Vinny Mckeon PA-C - Last Filed: 08/10/22 20:37> Lab Data Labs: Lab Results 08/10/22 08/10/22 08/10/22 Range/Units 18:53 18:53 18:53 WBC 18.8 H (4.5-11.0) X10^3/uL RBC 4.14 (4.0-5.2) X10^6/uL Hgb 12.3 (12.0-16.0) g/dL Hct 37.3 (36-46) % MCV 90.1 (80-100) fL MCH 29.7 (26-34) PG MCHC 33.0 (30-36) % RDW 16.2 H (11.6-14.8) % Plt Count 253 (150-400) X10^3/uL Neut % (Auto) 79.1 H (50-75) % Lymph % (Auto) 9.3 L (25-40) % Ralls % (Auto) 11.0 (3-14) % Eos % (Auto) 0.1 L (2-4) % Baso % (Auto) 0.5 (0-2) % Neut # (Auto) 90348 H (2322-5937) /uL Lymph # (Auto) 1800 (5532-9194) /uL Ralls # (Auto) 2100 H (0-900) /uL Eos # (Auto) 0 (0-450) /uL Baso # (Auto) 100 (0-100) /uL PT (10.1-12.7) SECONDS INR (0.9-1.3) Sodium 136 L (137-145) mmol/L Potassium 4.3 (3.4-5.1) mmol/L Chloride 105 (98-107) mmol/L Carbon Dioxide 23 (22-32) mmol/L BUN 27 H (7-17) mg/dL Creatinine 1.70 H (0.52-1.04) mg/dL Estimated GFR 31 L (>60) mL/min BUN/Creatinine Ratio 15.9 (6-22) Glucose 95 (80-110) mg/dL Lactate (0.7-2.1) mmol/L Calcium 8.9 (8.4-10.2) mg/dL Magnesium (1.6-2.3) mg/dL Total Bilirubin 1.5 H (0.2-1.3) mg/dL GGT (12-43) U/L AST 26 (14-36) IU/L ALT 25 (<35) IU/L Alkaline Phosphatase 159 H (38-126) U/L Troponin I 0.064 H (0.01-0.034) ng/mL Total Protein 6.1 L (6.3-8.2) g/dL Albumin 3.6 (3.5-5.0) g/dL Globulin 2.5 (1.7-4.1) g/dL Albumin/Globulin Ratio 1.4 (1.0-2.8) Lipase 24 (23-300) U/L Procalcitonin 0.38 (<0.5) ng/mL Urine Color Urine Appearance Urine pH (4.5-8.0) Ur Specific [place] (1.000-1.035) Urine Protein (Negative) Urine Glucose (UA) (Negative) g/dL Urine Ketones (NEGATIVE) Urine Occult Blood (Negative) Urine Nitrate (Negative) Urine Bilirubin (NEGATIVE) Urine Urobilinogen (0.2) E.U./dL Ur Leukocyte Esterase (NEGATIVE) Urine RBC (0-5/HPF) Urine WBC (0-5/HPF) Ur Squamous Epith Cells (0-5/HPF) Ur Transition Epith Cell (0-5/HPF) Urine Bacteria (None) Ur Culture Indicated? Chlamy pneumoniae PCR (Not Detect) Adenovirus (PCR) (Not Detect) B. pertussis DNA (PCR) (Not Detecte) B.parapertussis DNA PCR (Not Detecte) Coronavirus OC43 (PCR) (Not Detect) Coronavirus HKU1 (PCR) (Not Detect) Coronavirus 229E (PCR) (Not Detect) SARS-CoV-2 (PCR) (Not Detecte) Coronavirus NL63 (PCR) (Not Detect) Human Metapneumovir PCR (Not Detect) Influenza Type A (PCR) (Not Detect) Influenza Type B (PCR) (Not Detect) M. pneumoniae (PCR) (Not Detect) Parainfluenza 1 (PCR) (Not Detect) Parainfluenza 2 (PCR) (Not Detect) Parainfluenza 3 (PCR) (Not Detect) Parainfluenza 4 (PCR) (Not Detect) RSV (PCR) (Not Detect) Entero/Rhino (PCR) (Not Detect) Blood Type Antibody Screen 08/10/22 08/10/22 08/10/22 Range/Units 18:53 18:53 18:53 WBC (4.5-11.0) X10^3/uL RBC (4.0-5.2) X10^6/uL Hgb (12.0-16.0) g/dL Hct (36-46) % MCV (80-100) fL MCH (26-34) PG MCHC (30-36) % RDW (11.6-14.8) % Plt Count (150-400) X10^3/uL Neut % (Auto) (50-75) % Lymph % (Auto) (25-40) % Ralls % (Auto) (3-14) % Eos % (Auto) (2-4) % Baso % (Auto) (0-2) % Neut # (Auto) (3580-7971) /uL Lymph # (Auto) (1085-3157) /uL Ralls # (Auto) (0-900) /uL Eos # (Auto) (0-450) /uL Baso # (Auto) (0-100) /uL PT 15.5 H (10.1-12.7) SECONDS INR 1.3 (0.9-1.3) Sodium (137-145) mmol/L Potassium (3.4-5.1) mmol/L Chloride (98-107) mmol/L Carbon Dioxide (22-32) mmol/L BUN (7-17) mg/dL Creatinine (0.52-1.04) mg/dL Estimated GFR (>60) mL/min BUN/Creatinine Ratio (6-22) Glucose (80-110) mg/dL Lactate 1.8 (0.7-2.1) mmol/L Calcium (8.4-10.2) mg/dL Magnesium 1.8 (1.6-2.3) mg/dL Total Bilirubin (0.2-1.3) mg/dL GGT (12-43) U/L AST (14-36) IU/L ALT (<35) IU/L Alkaline Phosphatase (38-126) U/L Troponin I (0.01-0.034) ng/mL Total Protein (6.3-8.2) g/dL Albumin (3.5-5.0) g/dL Globulin (1.7-4.1) g/dL Albumin/Globulin Ratio (1.0-2.8) Lipase (23-300) U/L Procalcitonin (<0.5) ng/mL Urine Color Urine Appearance Urine pH (4.5-8.0) Ur Specific [place] (1.000-1.035) Urine Protein (Negative) Urine Glucose (UA) (Negative) g/dL Urine Ketones (NEGATIVE) Urine Occult Blood (Negative) Urine Nitrate (Negative) Urine Bilirubin (NEGATIVE) Urine Urobilinogen (0.2) E.U./dL Ur Leukocyte Esterase (NEGATIVE) Urine RBC (0-5/HPF) Urine WBC (0-5/HPF) Ur Squamous Epith Cells (0-5/HPF) Ur Transition Epith Cell (0-5/HPF) Urine Bacteria (None) Ur Culture Indicated? Chlamy pneumoniae PCR (Not Detect) Adenovirus (PCR) (Not Detect) B. pertussis DNA (PCR) (Not Detecte) B.parapertussis DNA PCR (Not Detecte) Coronavirus OC43 (PCR) (Not Detect) Coronavirus HKU1 (PCR) (Not Detect) Coronavirus 229E (PCR) (Not Detect) SARS-CoV-2 (PCR) (Not Detecte) Coronavirus NL63 (PCR) (Not Detect) Human Metapneumovir PCR (Not Detect) Influenza Type A (PCR) (Not Detect) Influenza Type B (PCR) (Not Detect) M. pneumoniae (PCR) (Not Detect) Parainfluenza 1 (PCR) (Not Detect) Parainfluenza 2 (PCR) (Not Detect) Parainfluenza 3 (PCR) (Not Detect) Parainfluenza 4 (PCR) (Not Detect) RSV (PCR) (Not Detect) Entero/Rhino (PCR) (Not Detect) Blood Type Antibody Screen 08/10/22 08/10/22 08/10/22 Range/Units 18:53 19:15 19:20 WBC (4.5-11.0) X10^3/uL RBC (4.0-5.2) X10^6/uL Hgb (12.0-16.0) g/dL Hct (36-46) % MCV (80-100) fL MCH (26-34) PG MCHC (30-36) % RDW (11.6-14.8) % Plt Count (150-400) X10^3/uL Neut % (Auto) (50-75) % Lymph % (Auto) (25-40) % Ralls % (Auto) (3-14) % Eos % (Auto) (2-4) % Baso % (Auto) (0-2) % Neut # (Auto) (7091-8535) /uL Lymph # (Auto) (3577-4307) /uL Ralls # (Auto) (0-900) /uL Eos # (Auto) (0-450) /uL Baso # (Auto) (0-100) /uL PT (10.1-12.7) SECONDS INR (0.9-1.3) Sodium (137-145) mmol/L Potassium (3.4-5.1) mmol/L Chloride (98-107) mmol/L Carbon Dioxide (22-32) mmol/L BUN (7-17) mg/dL Creatinine (0.52-1.04) mg/dL Estimated GFR (>60) mL/min BUN/Creatinine Ratio (6-22) Glucose (80-110) mg/dL Lactate (0.7-2.1) mmol/L Calcium (8.4-10.2) mg/dL Magnesium (1.6-2.3) mg/dL Total Bilirubin (0.2-1.3) mg/dL GGT 65 H (12-43) U/L AST (14-36) IU/L ALT (<35) IU/L Alkaline Phosphatase (38-126) U/L Troponin I (0.01-0.034) ng/mL Total Protein (6.3-8.2) g/dL Albumin (3.5-5.0) g/dL Globulin (1.7-4.1) g/dL Albumin/Globulin Ratio (1.0-2.8) Lipase (23-300) U/L Procalcitonin (<0.5) ng/mL Urine Color Urine Appearance Urine pH (4.5-8.0) Ur Specific [place] (1.000-1.035) Urine Protein (Negative) Urine Glucose (UA) (Negative) g/dL Urine Ketones (NEGATIVE) Urine Occult Blood (Negative) Urine Nitrate (Negative) Urine Bilirubin (NEGATIVE) Urine Urobilinogen (0.2) E.U./dL Ur Leukocyte Esterase (NEGATIVE) Urine RBC (0-5/HPF) Urine WBC (0-5/HPF) Ur Squamous Epith Cells (0-5/HPF) Ur Transition Epith Cell (0-5/HPF) Urine Bacteria (None) Ur Culture Indicated? Chlamy pneumoniae PCR Not detected (Not Detect) Adenovirus (PCR) Not detected (Not Detect) B. pertussis DNA (PCR) Not detected (Not Detecte) B.parapertussis DNA PCR Not detected (Not Detecte) Coronavirus OC43 (PCR) Not detected (Not Detect) Coronavirus HKU1 (PCR) Not detected (Not Detect) Coronavirus 229E (PCR) Not detected (Not Detect) SARS-CoV-2 (PCR) Detected H (Not Detecte) Coronavirus NL63 (PCR) Not detected (Not Detect) Human Metapneumovir PCR Not detected (Not Detect) Influenza Type A (PCR) Not detected (Not Detect) Influenza Type B (PCR) Not detected (Not Detect) M. pneumoniae (PCR) Not detected (Not Detect) Parainfluenza 1 (PCR) Not detected (Not Detect) Parainfluenza 2 (PCR) Not detected (Not Detect) Parainfluenza 3 (PCR) Not detected (Not Detect) Parainfluenza 4 (PCR) Not detected (Not Detect) RSV (PCR) Not detected (Not Detect) Entero/Rhino (PCR) Not detected (Not Detect) Blood Type O Positive Antibody Screen Negative 08/10/22 Range/Units 19:38 WBC (4.5-11.0) X10^3/uL RBC (4.0-5.2) X10^6/uL Hgb (12.0-16.0) g/dL Hct (36-46) % MCV (80-100) fL MCH (26-34) PG MCHC (30-36) % RDW (11.6-14.8) % Plt Count (150-400) X10^3/uL Neut % (Auto) (50-75) % Lymph % (Auto) (25-40) % [place] % (Auto) (3-14) % Eos % (Auto) (2-4) % Baso % (Auto) (0-2) % Neut # (Auto) (5858-2039) /uL Lymph # (Auto) (1143-3026) /uL [place]alls # (Auto) (0-900) /uL Eos # (Auto) (0-450) /uL Baso # (Auto) (0-100) /uL PT (10.1-12.7) SECONDS INR (0.9-1.3) Sodium (137-145) mmol/L Potassium (3.4-5.1) mmol/L Chloride (98-107) mmol/L Carbon Dioxide (22-32) mmol/L BUN (7-17) mg/dL Creatinine (0.52-1.04) mg/dL Estimated GFR (>60) mL/min BUN/Creatinine Ratio (6-22) Glucose (80-110) mg/dL Lactate (0.7-2.1) mmol/L Calcium (8.4-10.2) mg/dL Magnesium (1.6-2.3) mg/dL Total Bilirubin (0.2-1.3) mg/dL GGT (12-43) U/L AST (14-36) IU/L ALT (<35) IU/L Alkaline Phosphatase (38-126) U/L Troponin I (0.01-0.034) ng/mL Total Protein (6.3-8.2) g/dL Albumin (3.5-5.0) g/dL Globulin (1.7-4.1) g/dL Albumin/Globulin Ratio (1.0-2.8) Lipase (23-300) U/L Procalcitonin (<0.5) ng/mL Urine Color Yellow Urine Appearance Clear Urine pH 7.5 (4.5-8.0) Ur Specific [place] 1.015 (1.000-1.035) Urine Protein Trace H (Negative) Urine Glucose (UA) Negative (Negative) g/dL Urine Ketones Trace H (NEGATIVE) Urine Occult Blood Trace-intact (Negative) Urine Nitrate Positive H (Negative) Urine Bilirubin Negative (NEGATIVE) Urine Urobilinogen 1.0 (0.2) E.U./dL Ur Leukocyte Esterase Negative (NEGATIVE) Urine RBC 1-5/hpf (0-5/HPF) Urine WBC 30-100/hpf H (0-5/HPF) Ur Squamous Epith Cells 1-5 /hpf (0-5/HPF) Ur Transition Epith Cell 1-5/hpf (0-5/HPF) Urine Bacteria Many (>30) H (None) Ur Culture Indicated? Specimen cultured Chlamy pneumoniae PCR (Not Detect) Adenovirus (PCR) (Not Detect) B. pertussis DNA (PCR) (Not Detecte) B.parapertussis DNA PCR (Not Detecte) Coronavirus OC43 (PCR) (Not Detect) Coronavirus HKU1 (PCR) (Not Detect) Coronavirus 229E (PCR) (Not Detect) SARS-CoV-2 (PCR) (Not Detecte) Coronavirus NL63 (PCR) (Not Detect) Human Metapneumovir PCR (Not Detect) Influenza Type A (PCR) (Not Detect) Influenza Type B (PCR) (Not Detect) M. pneumoniae (PCR) (Not Detect) Parainfluenza 1 (PCR) (Not Detect) Parainfluenza 2 (PCR) (Not Detect) Parainfluenza 3 (PCR) (Not Detect) Parainfluenza 4 (PCR) (Not Detect) RSV (PCR) (Not Detect) Entero/Rhino (PCR) (Not Detect) Blood Type Antibody Screen Discharge Plan Departure Patient Disposition: Admitted As Inpatient Clinical Impression: Sepsis, Acute UTI, COVID-19, Acute alteration in mental status, Laceration Fall Qualifiers: Encounter type: initial encounter Qualified Code(s): W19.XXXA - Unspecified fall, initial encounter Admit Date/Time: 08/11/22 00:56 Admit Provider: Beverley Pendleton
[2022-08-10 19:07] LABS: Add Manual Diff / Slide Review NO; Basophils Absolute Auto 100 /uL (0-100); Basophils Percent Auto 0.5 % (0-2); Eosinophils Absolute Auto 0 /uL (0-450); Eosinophils Percent Auto 0.1 % (2-4); Hematocrit 37.3 % (36-46); Hemoglobin 12.3 g/dL (12.0-16.0); Lymphocytes Absolute Auto 1800 /uL (1100-4500); Lymphocytes Percent Auto 9.3 % (25-40); Mean Corpuscular Hemoglobin 29.7 PG (26-34); Mean Corpuscular Volume 90.1 fL (80-100); Monocytes Absolute Auto 2100 /uL (0-900); Neutrophils Absolute Auto 14900 /uL (1500-7000); Neutrophils Percent Auto 79.1 % (50-75); Platelet Count 253 X10^3/uL (150-400); Red Blood Cell Count 4.14 X10^6/uL (4.0-5.2); Red Cell Distribution Width 16.2 % (11.6-14.8); White Blood Cell Count 18.8 X10^3/uL (4.5-11.0)
[2022-08-10 19:10] LABS: INR 1.3 (0.9-1.3); Prothrombin Time 15.5 SECONDS (10.1-12.7)
[2022-08-10 19:16] LABS: Alanine Aminotransferase 25 IU/L (<35); Albumin 3.6 g/dL (3.5-5.0); Albumin Globulin Ratio 1.4 (1.0-2.8); Alkaline Phosphatase 159 U/L (38-126); Aspartate Aminotransferase 26 IU/L (14-36); BUN Creatinine Ratio 15.9 (6-22); Bilirubin Total 1.5 mg/dL (0.2-1.3); Blood Urea Nitrogen 27 mg/dL (7-17); Calcium 8.9 mg/dL (8.4-10.2); Carbon Dioxide 23 mmol/L (22-32); Chloride 105 mmol/L (98-107); Estimated Glomerular Filt Rate 31 mL/min (>60); Globulin 2.5 g/dL (1.7-4.1); Glucose 95 mg/dL (80-110); HEMOLYSIS < 15 (0-50); Lactate (Lactic Acid) 1.8 mmol/L (0.7-2.1); Lipase 24 U/L (23-300); Potassium 4.3 mmol/L (3.4-5.1); Sodium 136 mmol/L (137-145); Total Protein 6.1 g/dL (6.3-8.2)
[2022-08-10] MEDS: ONDANSETRON 4 MG/2 ML INJ IV (19:19)
[2022-08-10] MEDS: ACETAMINOPHEN 650 MG SUPP PR (19:20)
[2022-08-10] MEDS: HYDROMORPHONE 0.5 MG INJ 0.2 MG IV ×2 (19:21→21:54)
[2022-08-10 19:28] LABS: Troponin I 0.064 ng/mL (0.01-0.034)
[2022-08-10 19:33] LABS: Procalcitonin 0.38 ng/mL (<0.5)
[2022-08-10 19:59] LABS: Appearance Urine UA CLEAR; Bilirubin Urine UA NEGATIVE (NEGATIVE); Color Urine UA YELLOW; Glucose Urine UA NEGATIVE (Negative); Ketones Urine UA TRACE (NEGATIVE); Leukocyte Esterase Urine UA NEGATIVE (NEGATIVE); Nitrite Urine UA POSITIVE (Negative); Occult Blood Urine UA TRACE-INTACT (Negative); Protein Urine UA TRACE (Negative); Specific Gravity Urine UA 1.015 (1.000-1.035)
[2022-08-10 20:08] LABS: pH Urine UA 7.5 (4.5-8.0)
[2022-08-10 20:09] LABS: Bacteria Urine Many (>30); Culture Indicated Urine Specimen Cultured; RBC Urine 1-5/HPF (0-5/HPF); Squamous Epithelial Cell Urine 1-5 /HPF (0-5/HPF); Transitional Epi Cells Urine 1-5/HPF (0-5/HPF); WBC Urine 30-100/HPF (0-5/HPF)
[2022-08-10] MEDS: LIDOCAINE 1% 20 ML INJ (20:14)
[2022-08-10 20:22] LABS: Adenovirus Not Detected (Not Detect); B. parapertussis Not Detected (Not Detecte); Bordetella pertussis Not Detected (Not Detecte); Chlamydophila pneumoniae Not Detected (Not Detect); Coronavirus 229E Not Detected (Not Detect); Coronavirus HKU1 Not Detected (Not Detect); Coronavirus NL 63 Not Detected (Not Detect); Coronavirus OC43 Not Detected (Not Detect); Human Metapneumovirus Not Detected (Not Detect); Human Rhinovirus/Enterovirus Not Detected (Not Detect); Influenza A Not Detected (Not Detect); Influenza B Not Detected (Not Detect); Mycoplasma pneumoniae Not Detected (Not Detect); Parainfluenza Virus 1 Not Detected (Not Detect); Parainfluenza Virus 2 Not Detected (Not Detect); Parainfluenza Virus 3 Not Detected (Not Detect); Parainfluenza Virus 4 Not Detected (Not Detect); Respiratory Syncytial Virus Not Detected (Not Detect)
[2022-08-10 20:23] LABS: SARS- CoV-2 Detected (Not Detecte)
--- NOTE | 2022-08-10 22:05 | DI.CT.S_ITS ---
PROCEDURE: CT ABDOMEN PELVIS W CON INDICATIONS: abdomnial pain, developing sepsis TECHNIQUE: After the administration of IV contrast, axial sections were acquired from the lung bases to the pubic symphysis. Coronal and sagittal reformats were performed. For radiation dose reduction, the following was used: automated exposure control, adjustment of mA and/or kV according to patient size. COMPARISON: CT, CT ABDOMEN PELVIS WO CON, 05/13/2019, 13:47. FINDINGS: Image quality: There is motion artifact limiting evaluation. Streak artifact also present secondary to patient's right hip prosthesis. Lung bases: Atelectasis and scarring redemonstrated in lung bases. There is also a 0.3 cm right lower lobe nodule along the major fissure which appears unchanged. Heart: Heart is normal in size. ABDOMEN: Liver: No mass lesion. Gallbladder: Surgically absent. Biliary ducts: There is biliary ductal dilatation which appears similar to the prior study and likely represent sequelae of prior cholecystectomy. Pancreas: There is fatty atrophy of the pancreas redemonstrated. There are few small hypoattenuating lesions within the pancreas suggestive of small cysts, measuring up to 0.8 cm in the pancreatic body. Findings are similar to the prior study. No pancreatic duct dilatation. Spleen: Normal in size. Adrenal Glands: No adrenal nodules. Kidneys and Ureters: No hydronephrosis. Stomach and Bowel: Stomach, small bowel loops, and colon are normal in caliber and wall thickness. No pericecal inflammatory changes to suggest appendicitis. There is colonic diverticulosis without acute diverticulitis. Peritoneum: No abnormal intraperitoneal fluid. No free air. Ventral Wall: No hernia. Abdominal Nodes: No retroperitoneal or mesenteric adenopathy by size criteria. Vessels: Aorta and inferior vena cava are normal in size. PELVIS: Pelvic Organs: Unremarkable. Bladder: There is a Stanley catheter within a nondistended urinary bladder. Pelvic Nodes: No enlarged lymph nodes. Miscellaneous: No inguinal hernias are seen. Bones: There are compression deformities within the lower thoracic spine and upper lumbar spine which appear similar to the prior study. Visualized osseous structures demonstrate no suspicious focal lesions. IMPRESSION: 1. No definite acute intra-abdominal abnormality. 2. Colonic diverticulosis without acute diverticulitis. Dictated by: Jesu Parks M.D. on 08/10/2022 at 23:47 Approved by: Jesu Parks M.D. on 08/10/2022 at 23:52
[2022-08-10] MEDS: levoFLOXacin 750 MG/150 ML PIGGYBACK 100 MG IV (22:13)
[2022-08-10] MEDS: SODIUM CHLORIDE 0.9% 1,000 ML 150 ML IV (22:16)
[2022-08-10] MEDS: ACETAMINOPHEN 325 MG TABLET PO (22:42)
[2022-08-10] MEDS: HYDROMORPHONE 0.5 MG INJ IV (22:56)
[2022-08-11] VITALS (17 sets, daily range): BP systolic 116–165; BP diastolic 69–86; PULSE 53–145; RESP 17–37; TEMP 37.4–38.1; O2SAT 92–100; BMI 22.8
--- NOTE | 2022-08-11 01:25 | P.HP_ITS ---
History of Present Illness History of Present Illness Date Patient Seen: 08/11/22 Time Patient Seen: 01:25 Chief complaint: GLF; on thinners Narrative: Christine Burger (Lorraine) is a bashir 76 year-old patient with a history of hypertension, hyperlipidemia, chronic hip pain, autoimmune disease, chronic kidney disease stage 4, hypothyroidism, reflux, prior DVT currently anticoagulated on Coumadin, bilateral lower extremity lymphedema, chronic spondylosis/lumbar stenosis with acute sacral insufficiency fractures bilaterally secondary to pathological fractures from osteoporosis, L2 compression fracture, prior lumbar laminectomy,? right hip arthroplasty, LLE venous insufficiency, and pulmonary fibrosis who was recently hospitalized at [facility] following a fall multiple injuries from 07/08 to 07/12/2022 discharged to [facility]. Patient apparently fell off the end of her bed earlier today hitting her head and landing on her left side. She presented to the ED tachycardic heart rate 140, febrile fever 101.3, tachypneic respiratory rate of 36 hypertensive urgency 155/110, confused agitated with multiple bruising and Dr. Pablo sutured 3 lacerations, provided 2 L fluid bolus for sepsis and started the patient on Levaquin IV due to allergies to cephalosporins, sulfa and cillins. Unable to obtain accurate ROS due to patient's encephalopathy. On admit patient continues to be confused and slightly agitated, temp 100.2?, BP 171/119, HR 118, R 24, O2 saturation 93% on room air. WBC 18.8, neutrophils 14,900, mono 2100. Lactate 1.8, procalcitonin 0.38. Kidney function is at baseline BUN 27, creatinine 1.7, GFR 31, bili 1.5, alk-phos 159, lipase negative. PT 15.5 INR stable at 1.3 they have been holding patient's Coumadin will continue to do so. Initial troponin 0.064 likely secondary to injury. Patient is COVID positive initially tested positive approximately 10 days ago- patient is asymptomatic, chest x-ray shows low lung volumes crowding of the interstitium-patient has interstitial lung disease. Remainder of respiratory panel is negative. Patient's urine was positive for nitrates trace glucose ketones WBC, bacteria and culture is pending. Head CT was negative for any acute intracranial process, C-spine [id number] degenerative changes. Left forearm and humerus are negative for fracture. EKG patient sinus tachycardia rate of 128 has frequent PACs rhythm that has been mistaken for AFib in the past. Patient is admitted for ground level fall, sepsis, encephalopathy, UTI, COVID, and hypertensive urgency. [facility] Medical History Atypical migraine Bilateral lower extremity edema Chicken pox (~1951) Chronic adrenal insufficiency Chronic anticoagulation Chronic back pain (~1964) Chronic diarrhea Chronic kidney disease Fecal incontinence (~2021) Headache (~2021) Hearing loss (~2011) History of DVT (deep vein thrombosis) History of kidney disease (~2002) Hyperlipidemia Hypertension Interstitial lung disease Irritable bowel syndrome (~2012) Measles (~1951) Mixed hyperlipidemia Mumps (~1951) 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 Stage 3b chronic kidney disease (CKD) Uses walker Venous (peripheral) insufficiency Surgical History Anesthesia History of back surgery (~2012) History of throat surgery (~1974) Family History Father Cancer History of heart disease Mother Hypertension Social History household members: spouse Smoking Status: Never smoker alcohol intake: current Meds Home Medications and Allergies Home Medications Medication Instructions Recorded Confirmed Type acetaminophen 500 mg tablet 500 mg PO Q6H PRN Pain (Scale 10/09/17 07/12/22 History (Tylenol Extra Strength) Score 4-6) levothyroxine 100 mcg capsule 100 mcg PO DAILY 10/09/17 07/12/22 History omeprazole 20 mg capsule,delayed 20 mg PO DAILY 10/09/17 07/12/22 History release ondansetron HCl 4 mg tablet 4 mg PO TID PRN nausea 10/09/17 07/12/22 History (Zofran) polyethylene glycol 3350 17 gram 17 gram PO DAILY PRN Constipation 10/09/17 07/12/22 History oral powder packet prednisone 5 mg tablet 5 mg PO DAILY 10/09/17 07/12/22 History topiramate 25 mg capsule,extended 50 mg PO BEDTIME 10/09/17 07/12/22 History release 24 hr digestive enzymes 1 cap PO DAILY PRN Abdominal 06/10/22 07/12/22 History Discomfort potassium chloride 20 mEq 20 meq PO DAILY 06/10/22 07/12/22 History tablet,extended release(part/cryst) sertraline 100 mg tablet 100 mg PO DAILY 06/10/22 07/12/22 History simvastatin 10 mg tablet 10 mg PO DAILY 06/10/22 07/12/22 History warfarin 1 mg tablet 1 mg PO DAILY #120 tabs 06/10/22 07/12/22 Rx cholecalciferol (vitamin D3) 125 125 mcg PO DAILY 06/15/22 07/12/22 History mcg (5,000 unit) capsule lidocaine 5 % topical patch 1 patch topical DAILY PRN back 07/08/22 07/12/22 Rx (Lidoderm) pain #30 ea methocarbamol 500 mg tablet 500 mg PO BID PRN muscle spasm #20 07/08/22 07/12/22 Rx tabs calcitonin (salmon) 200 1 spray intranasal DAILY 30 days 07/12/22 Rx unit/actuation nasal spray #3.7 mL loperamide 2 mg capsule 2 mg PO DAILY PRN Diarrhea 14 days 07/12/22 07/12/22 Rx #0 caps oxycodone-acetaminophen 5 mg-325 1 tab PO QID PRN Back Pain 7 days 07/12/22 Rx mg tablet #20 tabs Allergies Allergy/AdvReac Type Severity Reaction Status Date / Time amoxicillin [AMOXICILLIN] Allergy Severe rash and Verified 06/10/22 09:13 diarrhea oxybutynin Allergy Severe tongue Verified 06/10/22 09:13 swells Sulfa (Sulfonamide Allergy Severe fever and Verified 06/10/22 09:13 Antibiotics) rash [SULFA (SULFONAMIDE ANTIBIOTICS)] NSAIDS (Non-Steroidal Allergy Unknown Verified 06/10/22 09:13 Anti-Inflamma [NSAIDS (NON-STEROIDAL ANTI-INFLAMMA] cephalexin Allergy rash Verified 06/10/22 09:13 codeine [CODEINE] AdvReac Mild headache Verified 06/10/22 09:13 duloxetine [From CYMBALTA] AdvReac Mild vomiting Verified 06/10/22 09:13 morphine [MORPHINE] AdvReac Mild vomiting Verified 06/10/22 09:13 nitrofurantoin AdvReac Mild vomiting Verified 06/10/22 09:13 [From MACROBID] carisoprodol AdvReac Verified 06/10/22 09:13 piroxicam [From Feldene] AdvReac Verified 06/10/22 09:13 tolterodine AdvReac Verified 06/10/22 09:13 Review of Systems Review of Systems Narrative: Unable to obtain ROS due to encephalopathy Exam Vital Signs (past 8 hours): - 08/10/22 18:36 08/10/22 18:35 08/10/22 18:38 Temperature 101.3 F H Pulse Rate 128 H 140 H Respiratory Rate 36 H 26 H Blood Pressure 155/110 H 155/110 H Pulse Oximetry 98 97 Oxygen Delivery Method Room Air 08/10/22 18:38 08/10/22 19:14 08/10/22 19:30 Temperature Pulse Rate 135 H 138 H 160 H Respiratory Rate 33 H 39 H 45 H Blood Pressure Pulse Oximetry 97 96 Oxygen Delivery Method 08/10/22 19:32 08/10/22 19:32 08/10/22 20:00 Temperature 102.0 F H Pulse Rate 131 H 138 H Respiratory Rate 38 H 52 H Blood Pressure 147/118 H Pulse Oximetry 100 96 Oxygen Delivery Method 08/10/22 20:05 08/10/22 20:05 08/10/22 20:30 Temperature 102.0 F H Pulse Rate 132 H Respiratory Rate 33 H Blood Pressure 134/86 141/102 H Pulse Oximetry 93 Oxygen Delivery Method 08/10/22 20:30 08/10/22 20:42 08/10/22 21:00 Temperature 101.5 F H 101.5 F H Pulse Rate 143 H Respiratory Rate 34 H Blood Pressure 174/100 H Pulse Oximetry 92 Oxygen Delivery Method Room Air 08/10/22 21:00 08/10/22 21:30 08/10/22 21:30 Temperature 101.7 F H 101.7 F H Pulse Rate 150 H 153 H Respiratory Rate 37 H 36 H Blood Pressure 157/75 H Pulse Oximetry 93 92 Oxygen Delivery Method Room Air Room Air 08/10/22 22:00 08/10/22 22:00 08/10/22 22:15 Temperature 101.7 F H Pulse Rate 126 H Respiratory Rate 27 H Blood Pressure 159/121 H 171/119 H Pulse Oximetry 94 Oxygen Delivery Method Room Air 08/10/22 22:15 08/10/22 22:36 08/10/22 22:42 Temperature 101.5 F H 101.3 F H 101.3 F H Pulse Rate 139 H 139 H Respiratory Rate 31 H 34 H Blood Pressure Pulse Oximetry 95 Oxygen Delivery Method Room Air 08/10/22 23:00 08/10/22 23:30 08/10/22 23:41 Temperature 101.1 F H 100.9 F H 100.9 F H Pulse Rate 164 H 143 H Respiratory Rate 34 H 25 H Blood Pressure Pulse Oximetry 94 93 Oxygen Delivery Method Room Air Room Air 08/11/22 00:00 08/11/22 00:30 Temperature 100.6 F H 100.2 F H Pulse Rate 145 H 118 H Respiratory Rate 30 H 24 Blood Pressure Pulse Oximetry 92 93 Oxygen Delivery Method Oxygen Delivery Method Room Air Narrative Exam Narrative: General:? Frail-appearing, thin pleasantly confused female with 2 lacerations to the head, in no acute distress, but when becomes agitated from pain her heart rate and respiratory rate elevate. HEENT:? dry mucous membranes, normal sclera with reactive pupils, airway is patent.? Laceration to mid forehead [address] laceration to left te mporal [address] Neck:? Minimal JVD, supple Respiratory:? Lung sounds are clear in all cast[place] without any adventitious sounds Cardiac:? Tachycardic rate irregular rhythm without no murmurs, rubs or gallops Abdomen:? Soft, nontender, decreased bowel tones in all 4 quadrants, no CVA tenderness Skin:? Warm and dry, multiple bruising present various stages of healing to upper and lower extremities, Neurologic:? Globally weak but Grossly neurologically intact with no obvious asymmetries or abnormalities Extremities:? Diffuse bruising throughout, warm dry, radial & pedal pulses intact, left arm is severely bruised from the shoulder through the hand, anterior open wound to left calf healing without signs of infection, lower extremity chronic venous stasis changes, 2+ lower extremity edema significant bruising with a laceration to the lateral right calf sutures in place Psych:? Confused, cooperative Objective Labs 08/10/22 18:53 08/10/22 18:53 Labs: Laboratory Results - last 24 hr 08/10/22 08/10/22 08/10/22 18:53 18:53 18:53 WBC 18.8 H RBC 4.14 Hgb 12.3 Hct 37.3 MCV 90.1 MCH 29.7 MCHC 33.0 RDW 16.2 H Plt Count 253 Neut % (Auto) 79.1 H Lymph % (Auto) 9.3 L [place] % (Auto) 11.0 Eos % (Auto) 0.1 L Baso % (Auto) 0.5 Neut # (Auto) 31511 H Lymph # (Auto) 1800 [place] # (Auto) 2100 H Eos # (Auto) 0 Baso # (Auto) 100 PT INR Sodium 136 L Potassium 4.3 Chloride 105 Carbon Dioxide 23 BUN 27 H Creatinine 1.70 H Estimated GFR 31 L BUN/Creatinine Ratio 15.9 Glucose 95 Lactate Calcium 8.9 Total Bilirubin 1.5 H AST 26 ALT 25 Alkaline Phosphatase 159 H Troponin I 0.064 H Total Protein 6.1 L Albumin 3.6 Globulin 2.5 Albumin/Globulin Ratio 1.4 Lipase 24 Procalcitonin 0.38 Urine Color Urine Appearance Urine pH Ur Specific [place] Urine Protein Urine Glucose (UA) Urine Ketones Urine Occult Blood Urine Nitrate Urine Bilirubin Urine Urobilinogen Ur Leukocyte Esterase Urine RBC Urine WBC Ur Squamous Epith Cells Ur Transition Epith Cell Urine Bacteria Ur Culture Indicated? Chlamy pneumoniae PCR Adenovirus (PCR) B. pertussis DNA (PCR) B.parapertussis DNA PCR Coronavirus OC43 (PCR) Coronavirus HKU1 (PCR) Coronavirus 229E (PCR) SARS-CoV-2 (PCR) Coronavirus NL63 (PCR) Human Metapneumovir PCR Influenza Type A (PCR) Influenza Type B (PCR) M. pneumoniae (PCR) Parainfluenza 1 (PCR) Parainfluenza 2 (PCR) Parainfluenza 3 (PCR) Parainfluenza 4 (PCR) RSV (PCR) Entero/Rhino (PCR) Blood Type Antibody Screen 08/10/22 08/10/22 08/10/22 18:53 18:53 19:15 WBC RBC Hgb Hct MCV MCH MCHC RDW Plt Count Neut % (Auto) Lymph % (Auto) [place] % (Auto) Eos % (Auto) Baso % (Auto) Neut # (Auto) Lymph # (Auto) [place] # (Auto) Eos # (Auto) Baso # (Auto) PT 15.5 H INR 1.3 Sodium Potassium Chloride Carbon Dioxide BUN Creatinine Estimated GFR BUN/Creatinine Ratio Glucose Lactate 1.8 Calcium Total Bilirubin AST ALT Alkaline Phosphatase Troponin I Total Protein Albumin Globulin Albumin/Globulin Ratio Lipase Procalcitonin Urine Color Urine Appearance Urine pH Ur Specific [place] Urine Protein Urine Glucose (UA) Urine Ketones Urine Occult Blood Urine Nitrate Urine Bilirubin Urine Urobilinogen Ur Leukocyte Esterase Urine RBC Urine WBC Ur Squamous Epith Cells Ur Transition Epith Cell Urine Bacteria Ur Culture Indicated? Chlamy pneumoniae PCR Adenovirus (PCR) B. pertussis DNA (PCR) B.parapertussis DNA PCR Coronavirus OC43 (PCR) Coronavirus HKU1 (PCR) Coronavirus 229E (PCR) SARS-CoV-2 (PCR) Coronavirus NL63 (PCR) Human Metapneumovir PCR Influenza Type A (PCR) Influenza Type B (PCR) M. pneumoniae (PCR) Parainfluenza 1 (PCR) Parainfluenza 2 (PCR) Parainfluenza 3 (PCR) Parainfluenza 4 (PCR) RSV (PCR) Entero/Rhino (PCR) Blood Type O Positive Antibody Screen Negative 08/10/22 08/10/22 19:20 19:38 WBC RBC Hgb Hct MCV MCH MCHC RDW Plt Count Neut % (Auto) Lymph % (Auto) [place] % (Auto) Eos % (Auto) Baso % (Auto) Neut # (Auto) Lymph # (Auto) [place] # (Auto) Eos # (Auto) Baso # (Auto) PT INR Sodium Potassium Chloride Carbon Dioxide BUN Creatinine Estimated GFR BUN/Creatinine Ratio Glucose Lactate Calcium Total Bilirubin AST ALT Alkaline Phosphatase Troponin I Total Protein Albumin Globulin Albumin/Globulin Ratio Lipase Procalcitonin Urine Color Yellow Urine Appearance Clear Urine pH 7.5 Ur Specific [place] 1.015 Urine Protein Trace H Urine Glucose (UA) Negative Urine Ketones Trace H Urine Occult Blood Trace-intact Urine Nitrate Positive H Urine Bilirubin Negative Urine Urobilinogen 1.0 Ur Leukocyte Esterase Negative Urine RBC 1-5/hpf Urine WBC 30-100/hpf H Ur Squamous Epith Cells 1-5 /hpf Ur Transition Epith Cell 1-5/hpf Urine Bacteria Many (>30) H Ur Culture Indicated? Specimen cultured Chlamy pneumoniae PCR Not detected Adenovirus (PCR) Not detected B. pertussis DNA (PCR) Not detected B.parapertussis DNA PCR Not detected Coronavirus OC43 (PCR) Not detected Coronavirus HKU1 (PCR) Not detected Coronavirus 229E (PCR) Not detected SARS-CoV-2 (PCR) Detected H Coronavirus NL63 (PCR) Not detected Human Metapneumovir PCR Not detected Influenza Type A (PCR) Not detected Influenza Type B (PCR) Not detected M. pneumoniae (PCR) Not detected Parainfluenza 1 (PCR) Not detected Parainfluenza 2 (PCR) Not detected Parainfluenza 3 (PCR) Not detected Parainfluenza 4 (PCR) Not detected RSV (PCR) Not detected Entero/Rhino (PCR) Not detected Blood Type Antibody Screen Assessment & Plan Assessment & Plan narrative: Christine Burger (Lorraine) is a bashir 76 year-old patient with a history of hypertension, hyperlipidemia, chronic hip pain, autoimmune disease, chronic kidn ey disease stage 4, hypothyroidism, reflux, prior DVT currently anticoagulated on Coumadin, bilateral lower extremity edema, chronic spondylosis/lumbar stenosis with acute sacral insufficiency fractures bilaterally secondary to pathological fractures from osteoporosis, L2 compression fracture, prior lumbar laminectomy,? right hip arthroplasty, LLE venous insufficiency, and pulmonary fibrosis who was recently hospitalized at [facility] following a fall multiple injuries from 07/08 to 07/12/2022 discharged to [facility]. Patient is admitted for ground level fall, sepsis, encephalopathy, UTI, COVID, and hypertensive urgency. 1. Sepsis without septic shock with encephalopathy, acute, present on admission -metabolic secondary to UTI -resulting in hypertensive urgency -continue sepsis rehydration, monitor for shock -continue Levaquin IV due to patient's multiple allergies -blood and urine cultures pending 2. UTI, acute, present on admission -NS at 150 cc/HR overnight -Levaquin 750 IV-pending culture results -urine culture pending -catheter in place 3. Ground level fall, acute on chronic, with head injury, frequent falls, present on admission -laceration x2 to the head -with elevated troponin 0.064-trend x3 likely demand ischemia myocardial injury -elevated bili 1.5, alk-phos 159, GGT 65-ordered right upper quadrant ultrasound -Pain management, fall precaution, assess for bleeding, neuro checks -head CT negative, MR ordered for tomorrow 4. COVID positive, acute present on admission -initial diagnosis 10 days ago -patient asymptomatic not requiring medical intervention protocols at this time. 5. Hypertensive urgency in the setting of hypertension, essential, acute on chronic, present on admission -likely secondary to pain/sepsis/UTI -patient takes no regular medications for hypertension -temporary bridge covered: metoprolol 5 mg IV for coverage:? Give for >30min sustained SBP>180,DBP>100,HR>110 (cautious of low heart rate) 6. History of DVT on chronic anticoagulation, chronic, present on admission -patient's Coumadin has been held due to her frequent falls, patient may not be the best candidate to continue with anticoagulation. 7. Chronic kidney disease stage 4, chronic, with associated hyperlipidemia, mixed, chronic present on admission- stable - BUN 2, creatinine 1.7, glucose 158, GFR 31- Baseline -trend renal function, avoid nephrotoxic medications -provide Lipitor place the patient's simvastatin 8. Autoimmune disease, interstitial lung disease, Microscopic polyangiitis, chronic, present on admission -continue on prednisone 5 mg q.d. 9.? Malnutrition, mild, acute, present on admission -last BMI 28, current 23.5 -patient's malnutrition places them at high risk for medical and surgical complications in relation to acute illness/chronic illness. This increases the difficulty in complexity of medical management and increases the chances poor outcomes such as mortality and morbidity as well as impaired wound healing, and immune suppression. -dietary consult ordered to evaluate and implement steps to improve caloric intake and nutrition. 10. Hypothyroidism, acquired, chronic, present on admission -continue levothyroxine Ordered TSH/T4 11. Atypical migraine, chronic, present on admission -continue Topiramate, 12. Depression, chronic, present on admission -continue sertraline Code Full PCP Jose Surrogate: Jabari Burger spouse DVT/VTE: Love & SCD's Disposition:? Patient admitted to acute care, expected length of stay greater than 2 midnights. I have utilized all available immediate resources to obtain, update, or review the patient's current medications.. I confirmed that the patient's advanced care plan is present, Code status is documented and/or surrogate decision maker is listed in the patient's medical record. I have personally reviewed patient's chart notes from PCP, specialists, diagnostic imaging, and laboratory,
[2022-08-11 01:44] LABS: Gamma Glutamyl Transpeptidase 65 U/L (12-43)
[2022-08-11 01:46] LABS: Magnesium 1.8 mg/dL (1.6-2.3)
[2022-08-11] MEDS: SODIUM CHLORIDE 0.9% 1,000 ML 150 ML IV (02:00)
[2022-08-11] MEDS: HYDROMORPHONE 0.5 MG INJ IV ×2 (02:51→09:23)
--- NOTE | 2022-08-11 03:49 | DI.US.S_ITS ---
PROCEDURE: US ABDOMEN LIMITED INDICATIONS: Multple Falls, elevated LFTs TECHNIQUE: Real-time scanning was performed of the abdominal and retroperitoneal organs, with image documentation. COMPARISON: None. FINDINGS: Study significantly limited due to overlying bowel gas and patient's inability to breath hold or be able to be positioned. Liver: Limited visualization of the liver. Of the visualized portions, echotexture appears within normal limits. No focal intrahepatic lesions identified. No intrahepatic biliary ductal dilatation. Gallbladder: Gallbladder is not visualized on this study. Biliary ducts: Intrahepatic bile ducts are non-dilated. Extrahepatic bile duct caliber measures 4 mm. Normal is 6-7 mm or less in diameter, or 10 mm or less post-cholecystectomy. Pancreas: Pancreas is not visualized on this study secondary to overlying bowel gas. Miscellaneous: No free abdominal fluid. IMPRESSION: Moderately limited evaluation of the abdomen secondary to overlying bowel gas and inability to position patient for optimal scanning. No definite sonographic abnormalities identified in the liver. No biliary ductal dilatation. The pancreas and the gallbladder were not visualized on this study secondary to bowel gas. No free fluid. Dictated by: Jason Sainz M.D. on 08/11/2022 at 7:32 Approved by: Jason Sainz M.D. on 08/11/2022 at 7:40
[2022-08-11] MEDS: LORazepam 2 MG/ML INJ 0.5 MG IV (04:07)
[2022-08-11 04:46] LABS: MRSA (Nasal) PCR Not Detected (Not Detect)
[2022-08-11 04:50] LABS: INR 1.4 (0.9-1.3); Prothrombin Time 16.5 SECONDS (10.1-12.7)
[2022-08-11 04:53] LABS: Add Manual Diff / Slide Review NO; Basophils Absolute Auto 0 /uL (0-100); Basophils Percent Auto 0.1 % (0-2); Eosinophils Absolute Auto 0 /uL (0-450); Eosinophils Percent Auto 0.2 % (2-4); Hematocrit 32.9 % (36-46); Hemoglobin 10.8 g/dL (12.0-16.0); Lymphocytes Absolute Auto 2100 /uL (1100-4500); Lymphocytes Percent Auto 13.8 % (25-40); Mean Corpuscular HGB Conc 32.7 % (30-36); Mean Corpuscular Hemoglobin 29.5 PG (26-34); Mean Corpuscular Volume 90.3 fL (80-100); Monocytes Absolute Auto 1500 /uL (0-900); Monocytes Percent Auto 9.6 % (3-14); Neutrophils Absolute Auto 11800 /uL (1500-7000); Neutrophils Percent Auto 76.3 % (50-75); Platelet Count 196 X10^3/uL (150-400); Red Blood Cell Count 3.64 X10^6/uL (4.0-5.2); Red Cell Distribution Width 15.9 % (11.6-14.8); White Blood Cell Count 15.4 X10^3/uL (4.5-11.0)
[2022-08-11 04:55] LABS: Lactate (Lactic Acid) 1.7 mmol/L (0.7-2.1)
[2022-08-11 04:59] LABS: Alanine Aminotransferase 21 IU/L (<35); Albumin 2.8 g/dL (3.5-5.0); Albumin Globulin Ratio 1.3 (1.0-2.8); Alkaline Phosphatase 115 U/L (38-126); Aspartate Aminotransferase 23 IU/L (14-36); BUN Creatinine Ratio 15.5 (6-22); Bilirubin Total 1.3 mg/dL (0.2-1.3); Blood Urea Nitrogen 22 mg/dL (7-17); Calcium 7.7 mg/dL (8.4-10.2); Carbon Dioxide 20 mmol/L (22-32); Chloride 110 mmol/L (98-107); Estimated Glomerular Filt Rate 38 mL/min (>60); Globulin 2.1 g/dL (1.7-4.1); Glucose 71 mg/dL (80-110); HEMOLYSIS < 15 (0-50); Sodium 136 mmol/L (137-145); Total Protein 4.9 g/dL (6.3-8.2)
[2022-08-11 05:06] LABS: NT-proBNP (BNP-Adult 18+) 14100 pg/mL (<450)
[2022-08-11 05:09] LABS: Troponin I 0.108 ng/mL (0.01-0.034)
[2022-08-11 05:14] LABS: Procalcitonin 0.83 ng/mL (<0.5)
[2022-08-11 05:28] LABS: TSH w/ Reflex to FT4 4.88 uIU/mL (0.47-4.68)
[2022-08-11] MEDS: PANTOPRAZOLE DR 20 MG TABLET PO (06:01)
[2022-08-11] MEDS: LEVOTHYROXINE 100 MCG TABLET PO (06:01)
--- NOTE | 2022-08-11 07:17 | PC.NURSE ---
Rec'd pt from ED via stretcher at 0155; pt awake and oriented to person, birthdate, month and year; unsure of date, aware of location and situation; 30 minutes later, pt unsure of situation and location; Pt has diffuse bruising, eschar to left carrasco, and lacerations to right carrasco, left mu-ism and left forehead with sutures intact; right foot edematous but pulses palpable and strong; pt c/o pain, mainly to left upper arm; arm is markedly bruised, which pt reports is from the b/p cuff at the NH getting too tight; pt was markedly restless and agitated; ativan 0.5mg iv given; pt finally settled and was able to sleep; pt coughed with water but able to take pills with applesauce
[2022-08-11 07:36] LABS: Free T4, Direct Thyroxine 2.14 ng/dL (0.78-2.19)
[2022-08-11] MEDS: predniSONE 5 MG TABLET PO (08:43)
[2022-08-11] MEDS: SERTRALINE 50 MG TABLET 100 MG PO (08:43)
[2022-08-11] MEDS: ENOXAPARIN 30 MG/0.3 ML SYRINGE SUBCUT (08:45)
--- NOTE | 2022-08-11 11:06 | SLP.IPNOTE ---
Order received. Pt asleep in her room. Checked with nursing, who reported that the pt chewed a bite of Telugu toast x 20 minutes. She was pocketing food as well. Will attempt again at noon meal.
[2022-08-11 11:53] LABS: Troponin I 0.067 ng/mL (0.01-0.034)
--- NOTE | 2022-08-11 12:17 | PT.IIE ---
Current Diagnoses Sepsis, unspecified organism (08/11/22) Surgical History (Last Reviewed 08/11/22 @ 01:42 by LORENE Andino) Anesthesia History of back surgery (~2012) History of throat surgery (~1974) Medical History (Last Reviewed 08/11/22 @ 01:42 by LORENE Andino) Atypical migraine Bilateral lower extremity edema Chicken pox (~1951) Chronic adrenal insufficiency Chronic anticoagulation Chronic back pain (~1964) Chronic diarrhea Chronic kidney disease Fecal incontinence (~2021) Headache (~2021) Hearing loss (~2011) History of DVT (deep vein thrombosis) History of kidney disease (~2002) Hyperlipidemia Hypertension Interstitial lung disease Irritable bowel syndrome (~2012) Measles (~1951) Mixed hyperlipidemia Mumps (~1951) 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 Stage 3b chronic kidney disease (CKD) Uses walker Venous (peripheral) insufficiency Physical Therapy Inpatient Evaluation/Re-Eval M1 PT/OT-IP Prior Functional Status Start: 08/11/22 11:55 Freq: NEEDED Status: Active Protocol: Document 08/11/22 11:55 ES (Rec: 08/11/22 12:17 ES [id number]) Medical Review Prior Functional Status Medical History Reviewed Yes Mobility and Gait Indep for household ambulation with 4WW, used w/c for longer distances. Assist from for using w/c in the house. Activities of Daily Living and IADL's Indep for basic ADL's. Assistance for household tasks /chores. helps manage medications. Prior Functional Level (Other details) Prior level is from >1 month ago prior to recent hospitalization and transfer to SNF. At [facility], patient was walking in her room and short distances in the young using 4WW with assistance. Social History Household Members spouse Living Arrangements Skilled Nurse Facility Home Environment Standard Height Toilet,Tub/ Shower Home Equipment Front Wheel Walker,Four Wheel Walker,Manual Wheelchair,Tub Transfer Bench,Hand Held Shower,Bed Rails,Grab Bars In Shower Employment Status Retired M2 PT-IP Current Condition Start: 08/11/22 11:55 Freq: NEEDED Status: Active Protocol: Document 08/11/22 11:55 ES (Rec: 08/11/22 12:17 ES [id number]) Physical Therapy Current Condition Current Condition Evaluation Date 08/11/22 Treatment Diagnosis GLF, sepsis, encephalopathy, UTI, COVID Onset Date 08/10/22 M3 PT-IP Subjective Start: 08/11/22 11:55 Freq: NEEDED Status: Active Protocol: Document 08/11/22 11:55 ES (Rec: 08/11/22 12:17 ES [id number]) Subjective Physical Therapy Visit Type Type Initial Evaluation Visit Start Time 10:00 Visit Stop Time 10:25 Total Visit Minutes 25 Physical Therapy Visit Comments Patient Comments Patient roused to verbal stimulus but drowsy and falling asleep during evaluation. present to provide history. Patient's stated patient was getting ready to d/c home from [facility] next week until she fell; stated she has had several falls, most of them from bed level, often during the day. stated there are no rails on the bed at [facility], and they were working on getting her a handle at the bedside to use. Patient Goals To eventually return home if able. Therapy Pain Assessment Pain When Pain Assessed During Mobility Pain Present Pain Present Pain Reported Location Left Upper Arm Scale Used Patient unable to provide Description With Movement Pain Behaviors Guarding,Wincing Pain Management Techniques Modification of Treatment,Re- positioning M4 PT-IP Mobility and Gait Start: 08/11/22 11:55 Freq: NEEDED Status: Active Protocol: Document 08/11/22 11:55 ES (Rec: 08/11/22 12:17 ES [id number]) PT-Bed Mobility Assessment Rolling Type of Rolling Bilateral Level of Assist Moderate Assistance,1 Person Assistance Scooting Scooting Up and Down in Bed Dependent PT-Transfer Assessment Comments Mobility Comments Did not attempt transfer due to high level of pain with movement and weakness. Gait Assessment Comments Gait Comments Unable M5 PT-IP Objective Assessments Start: 08/11/22 11:55 Freq: NEEDED Status: Active Protocol: Document 08/11/22 11:55 ES (Rec: 08/11/22 12:17 ES [id number]) Orientation Orientation/Cognition Level of Alertness Obtunded Orientation Name,Situation Comments Able to follow 1 step commands Gross Range of Motion Upper Extremity ROM Assessment Left Impaired Impairments L elbow and shoulder limited 90% due to pain Lower Extremity ROM Assessment Right Impaired Impairments R hip and knee limited due to pain Strength Upper Extremity Strength Assessment Bilaterally Impaired Lower Extremity Strength Assessment Bilaterally Impaired Comments Strength Comments RUE grossly 4-/5 LUE unable to move against gravity due to pain RLE grossly 3+/5, pain with knee flexion/extension LLE grossly 4-/5 M7 PT-IP Assessment and Plan Start: 08/11/22 11:55 Freq: NEEDED Status: Active Protocol: Document 08/11/22 11:55 ES (Rec: 08/11/22 12:17 ES [id number]) PT Summary Assessment and Plan Potential Rehabilitation Potential Fair Status of Condition at Evaluation Evolving Summary Impairments Pain,ROM,Strength,Balance, Cognition,Bed Mobility, Transfers,Gait,Activity Tolerance Assessment Summary Patient is a 76 year old female with severely impaired functional mobility due to pain and weakness, as well as drowsiness. She had poor tolerance of bed level activity, so did not progress to sitting this visit. Patient is well below her baseline functional level as well as her most recent functional level at [facility]. She will benefit from further skilled therapy during hospitalization to progress mobility/activity for increased participation in care. She will most likely require further rehab at [facility] to be able to return to [facility]. Goals Bed Mobility Goal Standby Assistance Transfer Goal Standby Assistance,Four Wheeled Walker Gait Goal Standby Assistance,Four Wheel Walker Gait Distance 50 ft Other Goals Patient will be able to tolerate sitting EOB with SBA for at least 10 minutes without LOB. Patient will be able to tolerate standing with BUE support and SBA for at least 5 minutes without LOB. Days to Meet Goals 7 Frequency of Treatment Frequency Of Treatment Once a Day Treatment Plan Physical Therapy Treatment Plan Bed Mobility Training,Transfer Training,Gait Training, Therapeutic Exercise,Balance Retraining,Discharge Planning, Neuromuscular Re-ed,Manual Therapy Other Recommendations and Next Treatment Pre-medicate for pain control, Focus progress to sitting EOB/ transfer to chair as tolerated . Precautions Other Precautions High rall risk Recommendations To Nursing Amount of Assist Needed Total Assistance,Mechanical Lift Discharge Recommendations PT Discharge Recommendations SNF Rehab Transportation Needs at Discharge Stretcher/Ambulance
--- NOTE | 2022-08-11 12:22 | DIET.CONS ---
Dietary Consultation Note Admission Date: 08/11/2022 00:56 Assessment: 76y F admitted for GLF referred to nutrition for malnutrition (MNA 6). Pt seen [address] during last admission when pt had concerns for low appetite. At that time pt was -1kg from her baseline. Today she has lost 7.9% of her body weight unintentionally in 1mo (severe). Per hospitalist, pt frail, thin, chronically-ill appearing with chronic venous stasis 2+ edema. Pt is covid+ with CKD4 and complains of diarrhea. Speech therapy to see pt as nsg reports pt chewed on one bite senegalese toast this morning for 20min then pocketed it. Pt on puree diet for lunch. Ht: 170.18 cm Wt: 66 kg BMI: 22.8 MNA: 6 Clemente Score: 17 Diet: 08/11/22 Breakfast Heart Healthy Diet Diet Modifications: Labs: RBC 3.64 X10^6/uL (4.0-5.2) L 08/11/22 04:15 Hgb 10.8 g/dL (12.0-16.0) L 08/11/22 04:15 Hct 32.9 % (36-46) L 08/11/22 04:15 Creatinine 1.42 mg/dL (0.52-1.04) H 08/11/22 04:15 Lactate 1.7 mmol/L (0.7-2.1) 08/11/22 04:15 NT-Pro-B Natriuret Pep 41427 pg/mL (<450) H 08/11/22 04:15 Nutrition Diagnosis: Severe Acute Protein Calorie Malnutrition r/t GI sx and low appetite aeb 7.9% unintentional weight loss in 1mo (severe), weakness with GLF, MNA 6, pt reports low appetite and diarrhea. Interventions: 1. Continue assessment by SLT for appropriate diet textures to support nutrition status. 2. Recc ONS Enlive bid in addition to meals as pt with low appetite. Electronically Signed by: Yasmin Cabrera 08/11/22 12:22 Clinical Dietitian [address] [address]
--- NOTE | 2022-08-11 13:19 | ST.IPCSEOM ---
Visit Care Team Role Provider Type Jamir Garcia MD Primary Care Provider Physician Specialty: Internal Medicine Address: [address] [place] [address], [id number] Email: [email or web address] Tereza Pablo MD Emergency Provider Physician Referring Provider Specialty: Emergency Medicine Address: [address] [place] [address], [address] Email: [facility] Admit Provider Physician Attending Provider Specialty: Hospitalist Internal Medicine Address: [address] [place] [address], [id number] Email: Current Diagnoses Sepsis, unspecified organism (08/11/22) Past Medical History (Last Reviewed 08/11/22 @ 01:42 by [facility]I [facility]) Atypical migraine (Medical) Bilateral lower extremity edema (Medical) Chicken pox (Medical ~1951) Chronic adrenal insufficiency (Medical) Chronic anticoagulation (Medical) Chronic back pain (Medical ~1964) Chronic diarrhea (Medical) Chronic kidney disease (Medical) Fecal incontinence (Medical ~2021) Headache (Medical ~2021) Hearing loss (Medical ~2011) History of DVT (deep vein thrombosis) (Medical) History of kidney disease (Medical ~2002) Hyperlipidemia (Medical) Hypertension (Medical) Interstitial lung disease (Medical) Irritable bowel syndrome (Medical ~2012) Measles (Medical ~1951) Mixed hyperlipidemia (Medical) Mumps (Medical ~1951) Primary osteoarthritis involving multiple joints (Medical) Secondary hyperparathyroidism of renal origin (Medical) Stage 3b chronic kidney disease (CKD) (Medical) Uses walker (Medical) Difficulty moving Venous (peripheral) insufficiency (Medical) Speech-Language Pathology Swallow Evaluation 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 Flores Reason for Referral dysphagia Setting Assessment Location Acute Care Visit Type Note Type Initial evaluation Next Note Type Next Note Type Re-evaluation Patient Information Identification Type Name History Christine Burger (Lorraine) is a bashir 76 year-old patient with a history of hypertension , hyperlipidemia, chronic hip pain, autoimmune disease, chronic kidney disease stage 4 , hypothyroidism, reflux, prior DVT currently anticoagulated on Coumadin, bilateral lower extremity edema, chronic spondylosis/ lumbar stenosis with acute sacral insufficiency fractures bilaterally secondary to pathological fractures from osteoporosis, L2 compression fracture, prior lumbar laminectomy,? right hip arthroplasty, LLE venous insufficiency, and pulmonary fibrosis who was recently hospitalized at [place] following a fall multiple injuries from 07/08 to 2022 discharged to [facility]. Patient is admitted for ground level fall , sepsis, encephalopathy, UTI, COVID, and hypertensive urgency. Subjective Observations Pt was in her bed with eyes closed but awakened easily when this FINISHING MACHINE TENDER entered the room . Pt was agreeable to tryu some food Reported by Patient Comment Pt appeared to be hurting when she tried to adjust herself in bed. Current Diet Regular,Thin liquids Baseline Feeding Method Dependent for feeding Objective Assessment Mental Status Alert,Responsive,Cooperative Oral Integrity WFL Dentition Within normal limits Lip Function Within normal limits Tongue Function Within normal limits Jaw Function Within normal limits Hard/Soft Palate Function Within normal limits Comment Pt's OME indicated form and function to be WFL. Pt's mouth was very dry; moistened with toothette. Food and Liquid Trials Position During Assessment Upright (90 degrees) Liquids Trialed Ice chips,Thin,Hyden Solids Trialed Puree Administration Type Tea spoon,Cup consecutive sips ,Straw,Needs some assistance, Dependent feeding Oral Impairment Within functional limits Oral Phase Comments Oral phase of swallowing with puree texture was WFL with puree texture. Pharyngeal Impairment Within functional limits Pharyngeal Phase Comments Per palpation, hyolaryngeal elevation was adequate. No cough/choke noted. No overt s /sx aspiration at bedside. Instrumental assessment would better indicate aspiration, if indicated. Fatigue/Endurance Severe fatigue Results Physically, pt's OME, oral and pharyngeal phases of swallowing were observed to be WFL. However, nursing reported that the pt was observed to chew a bite of Thai toast x 20 minutes with bilateral pocketing noted. Pt was unaware of pocketing. Pt is reported to be confused. Pt also diagnosed with encephalopathy which may exacerbate pt's baseline confusion. Continuous chewing of solid foods is not unusual with confused pts. Puree textures were safely and completely swallowed by pt during assessment. Pt was able o swallow thin liquids safely with a straw. No cough/choke or overt s/sx aspiration observed. Findings Swallowing Function Oral phase dysphagia Swallowing Function Comments Pt's swallowing deficit appears to be related to her cognitive status Severity of Swallow Impairment Moderately-severely impaired Contributing Factors to Swallow Reduced alertness or attention Impairment Comments Diminished cognition Prognosis Fair Comment Prognosis is good with appropriate diet and assissted feeding Impact on Safety and Functioning Risk for aspiration,Risk for inadequate nutrition/hydration Recommendations Instrumental Assessment No Swallowing Treatment Yes Frequency 1-2x/day while inpatient Recommended Solids Puree Recommended Liquids Thin Safety Precautions/Swallowing Supervision needed for all Recommendations meals,Feed only when alert, Remain upright (90 degrees) during all oral intake,Upright position at least 30 minutes after meals,Small bites and sips when eating,Slow rate; swallow between bites,Set-up assistance,1 to 1 feeding assistance,Family assistance/ supervision,Check for pocketing Medication Recommendations Crushed,Crushed in Carrier Discharge Recommendations intermediate facility,superintendent container terminal care facility Referrals Recommended Referrals Dietary Education Patient/Caregiver Education Patient expressed understanding of evaluation, Patient expressed agreement with goals & treatment plans, Patient expressed understanding of feeding recommendations Goals Long-term Goals Pt will safely tolerate the least restrictive diet to meet hydration and nutritional needs without s/sx aspiration.
--- NOTE | 2022-08-11 14:23 | CM.DANOTE ---
DCP: Case received, EMR reviewed. Patient is weak, currently sleeping. Was able to obtain information from September at [facility] regarding patient's status, since she came from their facility. DCP assessment completed with information currently available. Patient is a 76 year old female who admitted early this morning to the care of the hospitalist team. PCP: Dr. Garcia. Payer: confirmed: Medicare/[employer]. Patient came to the hospital via ambulance from [facility] secondary to having a fall, notes indicate that she had been on the edge of her bed, fell forward hitting her head landing on her left side. Patient is on warfarin for recurrent DVT. Notes indicate that patient is globally weak, febrile. Daughter, Renae, who is GRAIN UNLOADER MACHINE at [employer], has indicated that patient is not at baseline, more confused and agitated. Patient did test positive for COVID and was asymptomatic about 8 days ago. Patient was admitted for sepsis. Was unable to speak to patient, has been sleeping, but was able to get some information from Anisha at [facility]. Confirmed that she has been there about a month for rehab. She was getting close to being able to go home according to September. She has been a stand by assist with transfers. They can accept patient back when deemed medically stable. P: DCP to continue to follow. Patient should be able to return to [facility] when stable, will need to verify this with patient once she is more alert. Sonia Sherman RN/County Records Management Officer Discharge Planning/Care Management CM Discharge Assessment Start: 08/11/22 14:20 Freq: Status: Active Protocol: Document 08/11/22 14:21 (Rec: 08/11/22 14:23 [id number]) Discharge Planning Assessment Assigned Occ Therapy Asst Sonia Sherman RN/County Records Management Officer Advance Directives? No History Provided By Patient,Significant Other, Medical Record Prior Living Arrangements Skilled Nurse Facility Household Members spouse Type of transporation used prior to Relies on Others admit Facility Name Admitted From: [facility] Willing to Return to Facility? Yes Independent with ADL's No Is patient alert and oriented? Yes Needs Assistance With Bathing,Eating,Grooming,Meal Prep,Toileting,Managing Medications,Home Chores / Shopping Caregiver for Another No Comment FWW, wheelchair Patient/Family Preference [facility] Facility,Home with Home Health Barriers to Discharge No Discharge Plan Home Transportation Arrangement Facility Referrals Initiated Other Additional Comment Patient came from [facility] If patient plan is SNF: Has PASSR been No: [facility], as long as no changes Has Agency SNF been contacted Yes Comment Spoke to Anisha at [facility] for information Whiteboard Updated in Patient Room with No name and ext. # of Occ Therapy Asst Comment Did not enter room, patient is on precautions Review Status In Process Next Review Type Continued Stay Review
--- NOTE | 2022-08-11 15:16 | OT.IPNOTE ---
Per nursing pt having lots of pain and best to hold OT eval for today. To check on the the pt tomorrow fro OT eval.
[2022-08-11] MEDS: ACETAMINOPHEN 325 MG TABLET 650 MG PO (17:43)
[2022-08-11] MEDS: SENNOSIDES 8.6 MG TABLET 17.2 MG PO (20:20)
[2022-08-11] MEDS: ATORVASTATIN 20 MG TABLET 10 MG PO (20:20)
[2022-08-11] MEDS: TOPIRAMATE 25 MG TABLET 50 MG PO (20:20)
[2022-08-11] MEDS: OXYCODONE IR 5 MG TABLET PO (20:20)
[2022-08-11] MEDS: APIXABAN 5 MG TABLET PO (20:20)
[2022-08-12] VITALS (30 sets, daily range): BP systolic 110–149; BP diastolic 67–109; PULSE 58–137; RESP 15–38; TEMP 36.7–37.5; O2SAT 92–98; BMI 22.8
[2022-08-12] MEDS: OXYCODONE IR 5 MG TABLET PO ×3 (04:29→16:20)
[2022-08-12 04:50] LABS: Add Manual Diff / Slide Review NO; Basophils Absolute Auto 0 /uL (0-100); Basophils Percent Auto 0.2 % (0-2); Eosinophils Absolute Auto 100 /uL (0-450); Eosinophils Percent Auto 0.5 % (2-4); Hematocrit 32.8 % (36-46); Hemoglobin 10.8 g/dL (12.0-16.0); Lymphocytes Absolute Auto 1400 /uL (1100-4500); Lymphocytes Percent Auto 10.4 % (25-40); Mean Corpuscular HGB Conc 32.9 % (30-36); Mean Corpuscular Hemoglobin 29.8 PG (26-34); Mean Corpuscular Volume 90.5 fL (80-100); Monocytes Absolute Auto 1200 /uL (0-900); Neutrophils Absolute Auto 11000 /uL (1500-7000); Neutrophils Percent Auto 79.9 % (50-75); Platelet Count 172 X10^3/uL (150-400); Red Blood Cell Count 3.63 X10^6/uL (4.0-5.2); Red Cell Distribution Width 16.3 % (11.6-14.8); White Blood Cell Count 13.8 X10^3/uL (4.5-11.0)
[2022-08-12 04:54] LABS: Alanine Aminotransferase 17 IU/L (<35); Albumin 2.7 g/dL (3.5-5.0); Albumin Globulin Ratio 1.1 (1.0-2.8); Alkaline Phosphatase 114 U/L (38-126); Aspartate Aminotransferase 20 IU/L (14-36); BUN Creatinine Ratio 14.3 (6-22); Bilirubin Total 0.8 mg/dL (0.2-1.3); Blood Urea Nitrogen 20 mg/dL (7-17); Calcium 8.2 mg/dL (8.4-10.2); Carbon Dioxide 20 mmol/L (22-32); Chloride 110 mmol/L (98-107); Estimated Glomerular Filt Rate 39 mL/min (>60); Globulin 2.5 g/dL (1.7-4.1); Glucose 83 mg/dL (80-110); HEMOLYSIS < 15 (0-50); Potassium 3.6 mmol/L (3.4-5.1); Sodium 136 mmol/L (137-145); Total Protein 5.2 g/dL (6.3-8.2)
[2022-08-12 05:09] LABS: Procalcitonin 0.85 ng/mL (<0.5)
[2022-08-12 05:47] LABS: C-Reactive Protein Quant 21.7 mg/dL (<1.0)
[2022-08-12 05:48] LABS: Erythrocyte Sedimentation Rate 47 MM/HR (0-20)
[2022-08-12] MEDS: PANTOPRAZOLE DR 20 MG TABLET PO (06:03)
[2022-08-12] MEDS: LEVOTHYROXINE 100 MCG TABLET PO (06:03)
--- NOTE | 2022-08-12 07:37 | PM.PN.1 ---
Subjective Subjective Interval history: Patient more awake and alert today. Oriented x3. LE wounds to be evaluated by gen surg today. Left arm is very swollen compared to right. Exam Vital Signs (past 8 hours): - 08/12/22 00:00 08/12/22 04:00 Temperature 99.0 F 99.5 F Pulse Rate 134 H 112 H Respiratory Rate 17 21 Blood Pressure 131/67 144/76 H Pulse Oximetry 95 96 Oxygen Flow Rate 0 0 Oxygen Delivery Method Room Air Oxygen Flow Rate 0 Narrative Exam Narrative: General:? Frail-appearing female with 2 lacerations to the head, in no acute distress, but when becomes agitated from pain her heart rate and respiratory rate elevate. HEENT:? dry mucous membranes, normal sclera with reactive pupils, airway is patent.? Laceration to mid forehead [address] laceration to left temporal [address] Neck:? Minimal JVD, supple Respiratory:? Lung sounds are clear in all castro without any adventitious sounds Cardiac:? Tachycardic rate irregular rhythm without no murmurs, rubs or gallops Abdomen:? Soft, nontender, decreased bowel tones in all 4 quadrants, no CVA tenderness Skin:? Warm and dry, multiple bruising present various stages of healing to upper and lower extremities, Neurologic:? Globally weak but Grossly neurologically intact with no obvious asymmetries or abnormalities Extremities:? Diffuse bruising throughout, warm dry, radial & pedal pulses intact, left arm is severely bruised from the shoulder through the hand with increased swelling, open wound to left carrasco is deep with slough and eschar covering, right carrasco wound has sutures intact with slough and drainage, lower extremity chronic venous stasis changes, 2+ lower extremity edema significant bruising Psych:? Alert and oriented, cooperative Objective Labs 08/12/22 04:16 08/12/22 04:16 Labs: Laboratory Results - last 24 hr 08/11/22 08/11/22 08/12/22 04:15 11:11 04:16 WBC 13.8 H RBC 3.63 L Hgb 10.8 L Hct 32.8 L MCV 90.5 MCH 29.8 MCHC 32.9 RDW 16.3 H Plt Count 172 Neut % (Auto) 79.9 H Lymph % (Auto) 10.4 L Evangeline % (Auto) 9.0 Eos % (Auto) 0.5 L Baso % (Auto) 0.2 Neut # (Auto) 13402 H Lymph # (Auto) 1400 Evangeline # (Auto) 1200 H Eos # (Auto) 100 Baso # (Auto) 0 ESR Sodium Potassium Chloride Carbon Dioxide BUN Creatinine Estimated GFR BUN/Creatinine Ratio Glucose Calcium Total Bilirubin AST ALT Alkaline Phosphatase Troponin I 0.067 H C-Reactive Protein Total Protein Albumin Globulin Albumin/Globulin Ratio Procalcitonin Free T4 2.14 08/12/22 08/12/22 08/12/22 04:16 04:16 04:16 WBC RBC Hgb Hct MCV MCH MCHC RDW Plt Count Neut % (Auto) Lymph % (Auto) Evangeline % (Auto) Eos % (Auto) Baso % (Auto) Neut # (Auto) Lymph # (Auto) Evangeline # (Auto) Eos # (Auto) Baso # (Auto) ESR 47 H Sodium 136 L Potassium 3.6 Chloride 110 H Carbon Dioxide 20 L BUN 20 H Creatinine 1.40 H Estimated GFR 39 L BUN/Creatinine Ratio 14.3 Glucose 83 Calcium 8.2 L Total Bilirubin 0.8 AST 20 ALT 17 Alkaline Phosphatase 114 Troponin I C-Reactive Protein Total Protein 5.2 L Albumin 2.7 L Globulin 2.5 Albumin/Globulin Ratio 1.1 Procalcitonin 0.85 H Free T4 08/12/22 04:16 WBC RBC Hgb Hct MCV MCH MCHC RDW Plt Count Neut % (Auto) Lymph % (Auto) Evangeline % (Auto) Eos % (Auto) Baso % (Auto) Neut # (Auto) Lymph # (Auto) Evangeline # (Auto) Eos # (Auto) Baso # (Auto) ESR Sodium Potassium Chloride Carbon Dioxide BUN Creatinine Estimated GFR BUN/Creatinine Ratio Glucose Calcium Total Bilirubin AST ALT Alkaline Phosphatase Troponin I C-Reactive Protein 21.7 H Total Protein Albumin Globulin Albumin/Globulin Ratio Procalcitonin Free T4 [facility] Medical History Atypical migraine Bilateral lower extremity edema Chicken pox (~1951) Chronic adrenal insufficiency Chronic anticoagulation Chronic back pain (~1964) Chronic diarrhea Chronic kidney disease Fecal incontinence (~2021) Headache (~2021) Hearing loss (~2011) History of DVT (deep vein thrombosis) History of kidney disease (~2002) Hyperlipidemia Hypertension Interstitial lung disease Irritable bowel syndrome (~2012) Measles (~1951) Mixed hyperlipidemia Mumps (~1951) 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 Stage 3b chronic kidney disease (CKD) Uses walker Venous (peripheral) insufficiency Surgical History Anesthesia History of back surgery (~2012) History of throat surgery (~1974) Family History Father Cancer History of heart disease Mother Hypertension Social History household members: spouse Smoking Status: Never smoker alcohol intake: former Assessment & Plan Assessment & Plan narrative: Christine Burger (Lorraine) is a bashir 76 year-old patient with a history of hypertension, hyperlipidemia, chronic hip pain, autoimmune disease, chronic kidney disease stage 4, hypothyroidism, reflux, prior DVT currently anticoagulated on Coumadin, bilateral lower extremity edema, chronic spondylosis/lumbar stenosis with acute sacral insufficiency fractures bilaterally secondary to pathological fractures from osteoporosis, L2 compression fracture, prior lumbar laminectomy,? right hip arthroplasty, LLE venous insufficiency, and pulmonary fibrosis who was recently hospitalized at [facility] following a fall multiple injuries from 07/08 to 07/12/2022 discharged to [facility]. Patient is admitted for ground level fall, sepsis, encephalopathy, UTI, COVID, and hypertensive urgency. 1. Sepsis without septic shock with encephalopathy, acute, present on admission, encephalopathy now resolved -metabolic secondary to UTI vs leg wounds -continue sepsis rehydration, monitor for shock -continue Levaquin IV due to patient's multiple allergies -blood culture NG at 24 hours, wound culture pending -Dr. Hays, gen surg consulted to evaluate LE wounds 2. Citrobacter UTI, acute, present on admission -Levaquin 750 IV daily -urine cultures growing citrobacter sensitive to levaquin -catheter in place 3. Ground level fall, acute on chronic, with head injury, frequent falls, present on admission -laceration x2 to the head -with elevated troponin 0.064-trend x3 likely demand ischemia myocardial injury -elevated bili 1.5, alk-phos 159, GGT 65-ordered right upper quadrant ultrasound -Pain management, fall precaution, assess for bleeding, neuro checks -head CT negative -PT/OT evals 4. COVID positive, acute present on admission -initial diagnosis 10 days ago -patient asymptomatic not requiring medical intervention protocols at this time. 5. Hypertensive urgency in the setting of hypertension, urgency resolved -likely secondary to pain/sepsis/UTI -patient takes no regular medications for hypertension -BP now normotensive 6. History of DVT on chronic anticoagulation, chronic, present on admission -patient's Coumadin has been held due to her frequent falls, patient may not be the best candidate to continue with anticoagulation. -consider stopped warfarin due to frequent falls 7. Chronic kidney disease stage 4, chronic, with associated hyperlipidemia, mixed, chronic present on admission- stable - BUN 2, creatinine 1.7, glucose 158, GFR 31- Baseline -trend renal function, avoid nephrotoxic medications -provide Lipitor place the patient's simvastatin 8. Autoimmune disease, interstitial lung disease, Microscopic polyangiitis, chronic, present on admission -continue on prednisone 5 mg q.d. 9. Malnutrition, mild, acute, present on admission -last BMI 28, current 23.5 -patient's malnutrition places them at high risk for medical and surgical complications in relation to acute illness/chronic illness. This increases the difficulty in complexity of medical management and increases the chances poor outcomes such as mortality and morbidity as well as impaired wound healing, and immune suppression. -dietary consult ordered to evaluate and implement steps to improve caloric intake and nutrition. 10. Hypothyroidism, acquired, chronic, present on admission -continue levothyroxine -TSH 4.88, T4 2.14 normal 11. Atypical migraine, chronic, present on admission -continue Topiramate 12. Depression, chronic, present on admission -continue sertraline 13. LUE swelling -obtain venous US to rule out DVT, left arm much more swollen than right -could be a result of falls Code Full PCP: Jose Surrogate: Bill Jennyfer, spouse DVT/VTE: Lovenox & SCD's Disposition:? Pending improvement in sepsis and LE wounds.
[2022-08-12] MEDS: methocarbamoL 500 MG TABLET PO (09:19)
[2022-08-12] MEDS: ACETAMINOPHEN 325 MG TABLET 650 MG PO ×2 (09:19→16:20)
[2022-08-12] MEDS: predniSONE 5 MG TABLET PO (09:19)
[2022-08-12] MEDS: APIXABAN 5 MG TABLET PO (09:19)
--- NOTE | 2022-08-12 11:21 | CM.DPC ---
DCP Cont: Discussed patient during team rounds. Patient may be having surgery consult for wound to her legs. May need to have an I&D. There were also some stitches in one of her wounds that needed to be removed. P: DCP to continue to follow. Family have been involved. Plan most likely will be to return to [facility], will have to check in with family. Sonia Sherman RN/Dietetic Intern
--- NOTE | 2022-08-12 12:27 | PT-IP ANOTE ---
Per nursing pt not appropriate for PT at this time, will check back tomorrow.
--- NOTE | 2022-08-12 12:27 | OT.IPNOTE ---
Per nursing hold therapy today as pt just had her dressing changed and has been in a lot of pain.
--- NOTE | 2022-08-12 12:28 | PC.NURSE ---
Wounds seen by BLE. Chencho
--- NOTE | 2022-08-12 13:38 | ST.IPDYTX ---
Visit Care Team Role Provider Type Jamir Garcia MD Primary Care Provider Physician Specialty: Internal Medicine Address: [address] [place] [address], [id number] Email: [email or web address] Agustina Hays MD Other Providers Physician Specialty: General Surgery Address: [address] [place] [address], [phone] Email: Teerza Pablo MD Emergency Provider Physician Referring Provider Specialty: Emergency Medicine Address: [address] [place] [address], [address] Email: Beverley Pendleton [facility] Admit Provider Physician Attending Provider Specialty: Hospitalist Internal Medicine Address: [address] [place] [address], [address] Email: [employer]ESS [employer]ER Dysphagia Treatment [employer] Dysphagia Treatment Start: 08/11/22 12:38 Freq: Status: Active Protocol: Document 08/12/22 13:28 ZS (Rec: 08/12/22 13:38 ZS [id number]) Dysphagia Treatment Session Time Visit Start Time 09:15 Visit Stop Time 09:30 Total Visit Minutes 15 Setting Assessment Location Acute Care Visit Type Note Type Treatment Note Next Note Type Next Note Type Treatment Note Patient Information Identification Type Name,ID Wristband Subjective Observations Pt was laying in bed with daughter at bedside when [employer]ER and [employer] student internet marketing intern arrived . Pt and daughter reported morning meal went well with no difficulty chewing or swallowing. Daughter indicated pt complained her teeth hurt, though stated pt would likely enjoy more texture in her meals rather than fully pureed . Pt was agreeable to participate in PO trials and was repositioned to upright position. Treatment Liquids Trialed Thin Solids Trialed Puree,Dysphagia Mechanical Administration Type Tea Spoon,Cup Single Sip,Straw ,Self-Feeding,Dependent Feeding Oral Strategies Upright at 90 degrees, Alternate Liquids/Solids Pharyngeal Strategies Sitting Upright (90 deg),Small Bites and Sips,Alternate Liquids/Solids Treatment Activities Observed pt take pills crushed in carrier (applesauce) with NSG. Completed PO trials with dysphagia mechanical texture ( pudding with edy crackers) to assess for diet advancement . Assessment Assessment of Improvement Pt exhibited pocketing on left side with medications, though cleared all applesauce and left only crushed pieces of medication in her mouth. Pocketing also observed with dysphagia mechanical textures, though pocketing was on the right for these. All residue and pocketed food was cleared with a liquid wash. No overt signs or symptoms of aspiration observed and pt demonstrated mastication time WNL. Recommend diet advancement to dysphagia mechanical textures and thin liquids with continued monitoring and adjustment as needed. Recommend use of liquid wash to clear oral residue and pt continues to exhibit no overt signs or symptoms of aspiration with thin liquids through straw cup . Diet Recommendations Recommendations Upgrade Diet Order Liquids Order Thin Diet Order Dysphagia Mechanical Medication Recommendations Crushed in Carrier Aspiration Precautions Recommended Precautions Upright at 90 Degrees, Alternate Liquids/Solids,Small Bites/Sips Treatment Plan Placement Recommendation after Discharge [facility] Appropriate for Continued Therapy Yes Therapy Recommendations Continued monitoring and advancement of diet as indicated. Dysphagia Goals The pt will safely tolerate least restrictive diet to meet her nutrition and hydration needs.
--- NOTE | 2022-08-12 14:36 | DI.US.S_ITS ---
PROCEDURE: US PERIPH VENOUS UP EXTREM LT INDICATIONS: SWELLING TECHNIQUE: Real-time imaging, as well as color and pulse Doppler interrogation, was performed of the left upper extremity deep veins from the inferior neck to the antecubital fossa. COMPARISON: [facility], CR, XR HUMERUS LT 2V, 08/10/2022, 18:57. FINDINGS: The internal jugular vein, visualized portions of the subclavian vein, axillary, and brachial veins are free of intraluminal thrombus. Where physically possible, the veins are normally compressible. Color and pulse Doppler demonstrate normal intraluminal flow, with expected phasicity and pulsatility. Additional scanning of the cephalic and basilic veins of the superficial system demonstrate normal compressibility, without thrombus. Note is made of a fluid collection at the anterior superior left shoulder border with internal echoes, measuring up to 3.7 x 2.3 x 1.9 cm. IMPRESSION: No DVT found but there is a fluid collection in the area of prior trauma with internal echogenic density, measuring up to 3.7 x 2.3 x 1.9 cm. This is suspicious for representing a focal hematoma. Dictated by: Timoteo Ceballos M.D. on 08/12/2022 at 16:34 Approved by: Timoteo Ceballos M.D. on 08/12/2022 at 16:36
[2022-08-12] MEDS: LIDOCAINE PATCH 1 EACH ADH..PATCH TOP (18:16)
[2022-08-12] MEDS: ATORVASTATIN 20 MG TABLET 10 MG PO (20:49)
[2022-08-12] MEDS: TOPIRAMATE 25 MG TABLET 50 MG PO (20:49)
[2022-08-12] MEDS: SENNOSIDES 8.6 MG TABLET 17.2 MG PO (20:50)
[2022-08-12] MEDS: levoFLOXacin 750 MG/150 ML PIGGYBACK 100 MG IV (22:43)
[2022-08-13] VITALS: BP 137/72; PULSE 68; RESP 18; TEMP 36.6; O2SAT 98
[2022-08-13 04:00] VITALS: BP 141/62; PULSE 74; RESP 18; TEMP 36.8; O2SAT 97
[2022-08-13] MEDS: PANTOPRAZOLE DR 20 MG TABLET PO (05:03)
[2022-08-13] MEDS: LEVOTHYROXINE 100 MCG TABLET PO (05:03)
[2022-08-13 05:58] LABS: Add Manual Diff / Slide Review NO; Basophils Absolute Auto 0 /uL (0-100); Basophils Percent Auto 0.1 % (0-2); Eosinophils Absolute Auto 100 /uL (0-450); Eosinophils Percent Auto 0.9 % (2-4); Hematocrit 30.8 % (36-46); Hemoglobin 10.2 g/dL (12.0-16.0); Lymphocytes Absolute Auto 1600 /uL (1100-4500); Mean Corpuscular HGB Conc 33.1 % (30-36); Mean Corpuscular Hemoglobin 29.9 PG (26-34); Mean Corpuscular Volume 90.2 fL (80-100); Monocytes Absolute Auto 1000 /uL (0-900); Monocytes Percent Auto 8.3 % (3-14); Neutrophils Absolute Auto 8800 /uL (1500-7000); Neutrophils Percent Auto 76.7 % (50-75); Platelet Count 174 X10^3/uL (150-400); Red Blood Cell Count 3.42 X10^6/uL (4.0-5.2); Red Cell Distribution Width 16.1 % (11.6-14.8); White Blood Cell Count 11.5 X10^3/uL (4.5-11.0)
[2022-08-13 06:02] LABS: Alanine Aminotransferase 17 IU/L (<35); Albumin 2.6 g/dL (3.5-5.0); Albumin Globulin Ratio 1.1 (1.0-2.8); Alkaline Phosphatase 108 U/L (38-126); Aspartate Aminotransferase 20 IU/L (14-36); BUN Creatinine Ratio 12.6 (6-22); Bilirubin Total 0.8 mg/dL (0.2-1.3); Blood Urea Nitrogen 17 mg/dL (7-17); Calcium 8.1 mg/dL (8.4-10.2); Carbon Dioxide 24 mmol/L (22-32); Chloride 110 mmol/L (98-107); Estimated Glomerular Filt Rate 40 mL/min (>60); Globulin 2.4 g/dL (1.7-4.1); Glucose 89 mg/dL (80-110); HEMOLYSIS < 15 (0-50); Potassium 3.6 mmol/L (3.4-5.1); Sodium 137 mmol/L (137-145)
[2022-08-13 07:52] VITALS: BP 138/69; PULSE 63; RESP 12; TEMP 35.9; O2SAT 97
--- NOTE | 2022-08-13 09:23 | PM.CN ---
History of Present Illness Consult details Date Patient Seen: 08/13/22 Time Patient Seen: 09:23 Chief complaint: GLF; on thinners Reason for consult: leg wounds Requesting provider: Don Flores Narrative: Multiple falls on thinners. Old lacerations of bilateral lower extremities, sutures removed yesterday. Poor healing. Meds Home Medications and Allergies Home Medications Medication Instructions Recorded Confirmed Type acetaminophen 500 mg tablet 500 mg PO Q6H PRN Pain (Scale 10/09/17 08/11/22 History (Tylenol Extra Strength) Score 4-6) levothyroxine 100 mcg capsule 100 mcg PO DAILY 10/09/17 08/11/22 History omeprazole 20 mg capsule,delayed 20 mg PO DAILY 10/09/17 08/11/22 History release ondansetron HCl 4 mg tablet 4 mg PO TID PRN nausea 10/09/17 08/11/22 History (Zofran) polyethylene glycol 3350 17 gram 17 gram PO DAILY PRN Constipation 10/09/17 08/11/22 History oral powder packet prednisone 5 mg tablet 5 mg PO DAILY 10/09/17 08/11/22 History topiramate 25 mg capsule,extended 50 mg PO BEDTIME 10/09/17 08/11/22 History release 24 hr digestive enzymes 1 cap PO DAILY PRN Abdominal 06/10/22 08/11/22 History Discomfort potassium chloride 20 mEq 20 meq PO DAILY 06/10/22 08/11/22 History tablet,extended release(part/cryst) cholecalciferol (vitamin D3) 125 125 mcg PO DAILY 06/15/22 08/11/22 History mcg (5,000 unit) capsule lidocaine 5 % topical patch 1 patch topical DAILY PRN back 07/08/22 08/11/22 Rx (Lidoderm) pain #30 ea methocarbamol 500 mg tablet 500 mg PO BID PRN muscle spasm #20 07/08/22 08/11/22 Rx tabs calcitonin (salmon) 200 1 spray intranasal DAILY 30 days 07/12/22 08/11/22 Rx unit/actuation nasal spray #3.7 mL loperamide 2 mg capsule 2 mg PO DAILY PRN Diarrhea 14 days 07/12/22 08/11/22 Rx #0 caps oxycodone-acetaminophen 5 mg-325 1 tab PO QID PRN Back Pain 7 days 07/12/22 08/11/22 Rx mg tablet #20 tabs Allergies Allergy/AdvReac Type Severity Reaction Status Date / Time amoxicillin [AMOXICILLIN] Allergy Severe rash and Verified 06/10/22 09:13 diarrhea oxybutynin Allergy Severe tongue Verified 06/10/22 09:13 swells Sulfa (Sulfonamide Allergy Severe fever and Verified 06/10/22 09:13 Antibiotics) rash [SULFA (SULFONAMIDE ANTIBIOTICS)] NSAIDS (Non-Steroidal Allergy Unknown Verified 06/10/22 09:13 Anti-Inflamma [NSAIDS (NON-STEROIDAL ANTI-INFLAMMA] cephalexin Allergy rash Verified 06/10/22 09:13 codeine [CODEINE] AdvReac Mild headache Verified 06/10/22 09:13 duloxetine [From CYMBALTA] AdvReac Mild vomiting Verified 06/10/22 09:13 morphine [MORPHINE] AdvReac Mild vomiting Verified 06/10/22 09:13 nitrofurantoin AdvReac Mild vomiting Verified 06/10/22 09:13 [From MACROBID] carisoprodol AdvReac Verified 06/10/22 09:13 piroxicam [From Feldene] AdvReac Verified 06/10/22 09:13 tolterodine AdvReac Verified 06/10/22 09:13 Review of Systems Review of Systems Narrative: Left arm is a problem, don't recall all the falling ROS: Yes All systems reviewed with the patient and are negative except as otherwise documented Exam Vital Signs (past 8 hours): - 08/13/22 04:00 08/13/22 07:52 Temperature 98.2 F 96.7 F L Pulse Rate 74 63 Respiratory Rate 18 12 Blood Pressure 141/62 H 138/69 Pulse Oximetry 97 97 Oxygen Flow Rate 0 Oxygen Delivery Method Room Air Oxygen Flow Rate 0 Const General: cooperative and frail appearing Nutritional Appearance: overweight [facility] Head: normocephalic and laceration (left yazdanism and forehead, repaired. ) Eyes Sclera: sclerae normal Neck Neck: trachea midline Cardio Rate: regular rate Rhythm: abnormal rhythm Skin General: atrophy Other: multiple soft tissue contussions of face and all extremities Neuro General: patient alert, patient awake and patient oriented x3 Extrem Other: Bilateral lower extremities are both edematous, bruised from the knee to the ankle. Right leg has 2 small lacerations on the anterior tibial area that the sutures have been removed. There is poor healing and fibrinous exudate but no abscess. Right lower extremity has a single somewhat larger laceration with the sutures have been removed. Again poor healing and fibrinous exudate but no abscess. Left arm has soft tissue contusions with a hematoma in the upper arm posterior aspect, no wounds. Objective Labs 08/13/22 05:20 08/13/22 05:20 Labs: Laboratory Results - last 24 hr 08/13/22 08/13/22 05:20 05:20 WBC 11.5 H RBC 3.42 L Hgb 10.2 L Hct 30.8 L MCV 90.2 MCH 29.9 MCHC 33.1 RDW 16.1 H Plt Count 174 Neut % (Auto) 76.7 H Lymph % (Auto) 14.0 L [place] % (Auto) 8.3 Eos % (Auto) 0.9 L Baso % (Auto) 0.1 Neut # (Auto) 8800 H Lymph # (Auto) 1600 [place] # (Auto) 1000 H Eos # (Auto) 100 Baso # (Auto) 0 Sodium 137 Potassium 3.6 Chloride 110 H Carbon Dioxide 24 BUN 17 Creatinine 1.35 H Estimated GFR 40 L BUN/Creatinine Ratio 12.6 Glucose 89 Calcium 8.1 L Total Bilirubin 0.8 AST 20 ALT 17 Alkaline Phosphatase 108 Total Protein 5.0 L Albumin 2.6 L Globulin 2.4 Albumin/Globulin Ratio 1.1 [facility] Medical History Atypical migraine Bilateral lower extremity edema Chicken pox (~1951) Chronic adrenal insufficiency Chronic anticoagulation Chronic back pain (~1964) Chronic diarrhea Chronic kidney disease Fecal incontinence (~2021) Headache (~2021) Hearing loss (~2011) History of DVT (deep vein thrombosis) History of kidney disease (~2002) Hyperlipidemia Hypertension Interstitial lung disease Irritable bowel syndrome (~2012) Measles (~1951) Mixed hyperlipidemia Mumps (~1951) 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 Stage 3b chronic kidney disease (CKD) Uses walker Venous (peripheral) insufficiency Surgical History Anesthesia History of back surgery (~2012) History of throat surgery (~1974) Family History Father Cancer History of heart disease Mother Hypertension Social History household members: spouse Tobacco & Substance Use Smoking Status: Never smoker alcohol intake: former Assessment & Plan Assessment & Plan narrative: Impression: Multiple falls on anticoagulation. Soft tissue contusions throughout the body. Lacerations in the anterior aspect of the lower legs bilaterally along with pitting edema. Left upper extremity with edema and a hematoma in the upper posterior aspect of the arm. Plan: Thank you for removing the old sutures of the legs. Would go to a wet-to-dry dressing and compression wraps from mid foot to knee on both legs. And a compression wrap from wrist to shoulder on the left upper arm. Avoid tape on this lady skin if at all possible. She also has a repaired laceration of the face. Those sutures can come out in 2 days. COVID-19 COVID-19 status: Negative Time Spent With Patient Time with patient: 30 to 49 minutes with 50% spent counseling/coordinating care
--- NOTE | 2022-08-13 09:48 | ST.IPDYTX ---
Visit Care Team Role Provider Type Jamir Garcia MD Primary Care Provider Physician Specialty: Internal Medicine Address: [address] [place] [address], [phone] Email: [email or web address] Agustina Hays MD Other Providers Physician Specialty: General Surgery Address: [address] [place] [address], [phone] Email: Tereza Pablo MD Emergency Provider Physician Referring Provider Specialty: Emergency Medicine Address: [address] [place] [address], [address] Email: [facility] Admit Provider Physician Attending Provider Specialty: Hospitalist Internal Medicine Address: [address] [place] [address], [address] Email: ORDER PULLER Dysphagia Treatment ORDER PULLER Dysphagia Treatment Start: 08/11/22 12:38 Freq: Status: Active Protocol: Document 08/13/22 09:36 MG (Rec: 08/13/22 09:48 MG [id number]) Dysphagia Treatment Session Time Visit Start Time 09:15 Visit Stop Time 09:35 Total Visit Minutes 20 Setting Assessment Location Acute Care Visit Type Note Type Treatment Note Next Note Type Next Note Type Treatment Note Patient Information Identification Type Name,ID Wristband Subjective Observations Pt was upright in bed with meal tray at bedside. Had orders of NPO but were removed . Meal tray ordered was regular/thin. Pt was agreeable to eating, but noted she doesn't usually eat breakfast and wasn't feeling very hungry. Treatment Liquids Trialed Thin Solids Trialed Puree,Dysphagia Mechanical, Dysphagia Advanced,Mechanical Soft,Regular Administration Type Straw,Self-Feeding,Dependent Feeding Oral Strategies Upright at 90 degrees, Alternate Liquids/Solids Pharyngeal Strategies Sitting Upright (90 deg),Small Bites and Sips,Alternate Liquids/Solids Treatment Activities Observed and assisted in meal this morning. Pt is left handed but had left side soreness so was self feeding with right. Required meal to be cut and some feeding assistance. For entirety of meal, pt did not demonstrate overt s/sx of aspiration. Pt consumed pashto toast, cut fruit, sausage, and water from cup with straw. Pt noted when bites were too big and took adequate chewing time to break down food. Assessment Assessment of Improvement Slight pocketing noted but cleared with liquid wash. PT appeared to be improving by each therapy session. Recommended upgrading diet and continue to monitor intake and tolerance. Diet Recommendations Recommendations Upgrade Diet Order Liquids Order Thin Diet Order Regular Medication Recommendations Crushed in Carrier Aspiration Precautions Recommended Precautions Upright at 90 Degrees, Alternate Liquids/Solids,Small Bites/Sips Treatment Plan Placement Recommendation after Discharge [facility] Appropriate for Continued Therapy Yes Therapy Recommendations Monitor new diet order for intake and tolerance. Dysphagia Goals The pt will safely tolerate least restrictive diet to meet her nutrition and hydration needs.
[2022-08-13] MEDS: predniSONE 5 MG TABLET PO (10:37)
[2022-08-13] MEDS: CITALOPRAM 10 MG TABLET 20 MG PO (10:37)
[2022-08-13 11:00] VITALS: BP 135/62; PULSE 55; RESP 15; TEMP 36.7; O2SAT 94
[2022-08-13] MEDS: HYDROMORPHONE 0.5 MG INJ 0.25 MG IV ×2 (12:30→18:03)
--- NOTE | 2022-08-13 12:41 | CM.DPC ---
DCP Cont: Met with patient and daughter, Renae, who is an [employer] PA[employer]PERVIS[employer]. Discussed discharge planning. Renae indicated that she would like her to go home, but would also like her to have daily P.T, which she can get at [facility]. She is ok with her going back to [facility] if needed. She indicated that 'she was getting ready to go home from [facility], but then, ended up here. If patient improves with therapy, daughter feels they can manage at home with home health if needed. P: DCP to continue to follow. Plan is back to [facility] if recommended for daily therapy versus home with home health. Sonia Sherman RN/Director Of Institutional Giving
[2022-08-13] MEDS: methocarbamoL 500 MG TABLET PO ×3 (12:43→20:13)
[2022-08-13] MEDS: LIDOCAINE PATCH 1 EACH ADH..PATCH TOP (12:44)
--- NOTE | 2022-08-13 14:10 | PT.IPTN ---
Current Diagnoses Sepsis, unspecified organism (08/11/22) Physical Therapy Treatment Note M2 PT-IP Current Condition Start: 08/11/22 11:55 Freq: NEEDED Status: Active Protocol: Document 08/11/22 11:55 ES (Rec: 08/11/22 12:17 ES [id number]) Physical Therapy Current Condition Current Condition Evaluation Date 08/11/22 Treatment Diagnosis GLF, sepsis, encephalopathy, UTI, COVID Onset Date 08/10/22 M3 PT-IP Subjective Start: 08/11/22 11:55 Freq: NEEDED Status: Active Protocol: Document 08/13/22 14:46 TS (Rec: 08/13/22 15:12 TS [id number]) Subjective Physical Therapy Visit Type Type Treatment Note Visit Start Time 14:10 Visit Stop Time 14:44 Total Visit Minutes 34 Number of MANAGER SHIP Visits 1 Physical Therapy Visit Comments Patient Comments Pt found resting in bed and daugher in room. Pt reports increased R hip pain with mobility and sitting in chair, agreeable to PT. Patient Goals To eventually return home if able. Therapy Pain Assessment Pain When Pain Assessed During Mobility Pain Present Pain Present Pain Reported Location Right Hip Description Aching,Acute Pain Behaviors Facial Grimacing,Guarding, Holding Area,Moaning, Restlessness,Wincing Pain Management Techniques Apply Cold M4 PT-IP Mobility and Gait Start: 08/11/22 11:55 Freq: NEEDED Status: Active Protocol: Document 08/13/22 14:46 TS (Rec: 08/13/22 15:12 TS [id number]) PT-Bed Mobility Assessment Supine to Sit Supine to Sit Moderate Assistance Sit to Supine Sit to Supine Moderate Assistance Scooting Scooting to Edge of Bed Maximum Assistance Scooting Up and Down in Bed Maximum Assistance PT-Transfer Assessment Sit to and From Stand Sit to and from Stand Minimal Assistance,Moderate Assistance Equipment Transfer Assistive Device Gait Belt,Front Wheeled Walker Orthotic/Prosthetic Devices or Brace: No Transfers Transfer Destination Bed,Chair Transfer Technique Stand Step Pivot Transfer Ability Level of Assist Moderate Assistance,Maximum Assistance Comments Mobility Comments Pt found resting in bed, agreeable to PT. Supine to sit ModA for uprighting trunk and LE assistance, provided cues for handrail assist. Pt scooted to EOB MaxA with pad, pt using BUE to maintain sitting balance. Sit to stands x2 [place] from elevated bed with FWW, pt bracing legs against bed to push into standing and for balance, provided cues for RUE pushing from bed and LUE on FWW. Stand step pivot transfer to chair ModA, provided cues for step sequencing and FWW management, pt fatigued required MaxA to complete transfer into chair. Pt sitting in chair ~2 mins, reports increased pain in R hip, requested back to bed. Sit to stand x1 MaxA from lower surface of chair. Stand step pivot transfer ModA progressed to MAxA for completion of transfer sitting EOB. Sit to supine ModA for LEs into bed, scooted HOB MaxA x2. Pt was left in bed with call light nearby, daughter in room, RN notified. Gait Assessment Comments Gait Comments Stand step pivot transfer. See mobility comments. PT-Balance Assessment Sitting Balance and Reactions Static Sitting Balance Ability Fair Dynamic Sitting Balance Ability Poor Standing Balance and Reactions Static Standing Balance Ability Fair Dynamic Standing Balance Ability Poor M5 PT-IP Objective Assessments Start: 08/11/22 11:55 Freq: NEEDED Status: Active Protocol: Document 08/11/22 11:55 ES (Rec: 08/11/22 12:17 ES [id number]) Orientation Orientation/Cognition Level of Alertness Obtunded Orientation Name,Situation Comments Able to follow 1 step commands Gross Range of Motion Upper Extremity ROM Assessment Left Impaired Impairments L elbow and shoulder limited 90% due to pain Lower Extremity ROM Assessment Right Impaired Impairments R hip and knee limited due to pain Strength Upper Extremity Strength Assessment Bilaterally Impaired Lower Extremity Strength Assessment Bilaterally Impaired Comments Strength Comments RUE grossly 4-/5 LUE unable to move against gravity due to pain RLE grossly 3+/5, pain with knee flexion/extension LLE grossly 4-/5 M7 PT-IP Assessment and Plan Start: 08/11/22 11:55 Freq: NEEDED Status: Active Protocol: Document 08/13/22 14:46 TS (Rec: 08/13/22 15:12 TS [id number]) PT Summary Assessment and Plan Potential Rehabilitation Potential Fair Summary Impairments Pain,ROM,Strength,Balance, Cognition,Bed Mobility, Transfers,Gait,Activity Tolerance Progress Towards Goals Slow Progress due to Pain,Slow Progress due to Medical Issues,Slow Progress due to Activity Tolerance Assessment Summary Pt is ModA for supine to sit/ sit to supine. She progressed to standing this session with sit to stand x2 Keon from elevated bed and sit to stand ModA x1 from lower chair. She performed stand step pivot transfer with shuffle gait, minimal LE movement to chair and back to bed. Pt sitting in chair c/o increased pain in R hip and wanted to get back to bed. Pain in R hip and swelling in LEs is a limiting factor in her increasing her mobility. PT recommends SNf rehab to progress bed mobility , transfers, gait and activity tolerance. Goals Bed Mobility Goal Standby Assistance Transfer Goal Standby Assistance,Four Wheeled Walker Gait Goal Standby Assistance,Four Wheel Walker Gait Distance 50 ft Other Goals Patient will be able to tolerate sitting EOB with SBA for at least 10 minutes without LOB. Patient will be able to tolerate standing with BUE support and SBA for at least 5 minutes without LOB. Days to Meet Goals 7 Frequency of Treatment Frequency Of Treatment Once a Day Treatment Plan Physical Therapy Treatment Plan Bed Mobility Training,Transfer Training,Gait Training, Therapeutic Exercise,Balance Retraining,Discharge Planning, Neuromuscular Re-ed,Manual Therapy Other Recommendations and Next Treatment Pre-medicate for pain control, Focus progress to sitting EOB/ transfer to chair as tolerated . Precautions Other Precautions High rall risk Recommendations To Nursing Amount of Assist Needed 1 Person Assist,2 Person Assist Discharge Recommendations PT Discharge Recommendations SNF Rehab Transportation Needs at Discharge Stretcher/Ambulance
[2022-08-13] MEDS: OXYCODONE IR 5 MG TABLET PO (14:41)
[2022-08-13] MEDS: ACETAMINOPHEN 325 MG TABLET 650 MG PO (14:42)
[2022-08-13 15:00] VITALS: BP 152/68; PULSE 65; RESP 20; TEMP 36.4; O2SAT 95
--- NOTE | 2022-08-13 15:13 | DI.RAD.S_ITS ---
PROCEDURE: XR HIP W PEL IF DONE RT 2V INDICATIONS: concern for fracture TECHNIQUE: AP pelvis with lateral view(s) of the right hip(s). COMPARISON: [facility], CT, CT ABDOMEN PELVIS W CON, 08/10/2022, 22:13. [facility], CR, XR HIP W PEL IF DONE LT 2V, 07/30/2022, 0:17. FINDINGS: Bones: No fractures or dislocations. Pelvic ring appears intact. No suspicious bony lesions. Age-appropriate lower lumbar spine degenerative changes are noted. Right hip arthroplasty hardware is seen, without findings of failure or loosening. No periprosthetic fracture is seen. No fractures are seen elsewhere. [id number] left hip degenerative change is seen. Soft tissues: The visualized bowel gas pattern is normal. No suspicious soft tissue calcifications. A Stanley catheter is seen, which decompresses the bladder. IMPRESSION: Unremarkable right hip arthroplasty hardware, without acute fracture seen. Dictated by: Danny Lou M.D. on 08/13/2022 at 15:04 Approved by: Danny Lou M.D. on 08/13/2022 at 15:05
--- NOTE | 2022-08-13 16:15 | P.PN_ITS ---
Subjective Subjective Interval history: Patient feeling better today and actually took a few steps. Have no new complaints. Is pleased that her right hip x-ray shows no new fractures. Exam Vital Signs (past 8 hours): - 08/13/22 11:00 08/13/22 15:00 Temperature 98.1 F 97.6 F Pulse Rate 55 L 65 Respiratory Rate 15 20 Blood Pressure 135/62 152/68 H Pulse Oximetry 94 95 Oxygen Flow Rate 0 0 Oxygen Delivery Method Room Air Oxygen Flow Rate 0 Narrative Exam Narrative: General:? Frail-appearing, thin pleasant elderly female, in no acute distress. HEENT:? dry mucous membranes, normal sclera with reactive pupils, airway is pa tent.? Treated laceration left forehead. Neck:? Minimal JVD, supple Respiratory:? Lung sounds are clear with no wheezes or crackles. Cardiac:? rate irregular rhythm without no murmurs, rubs or gallops Abdomen:? Soft, nontender, bowel sounds present. Skin:? Warm and dry, multiple bruising present various stages of healing to upper and lower extremities, Neurologic:? Globally weak but otherwise neurologically intact. Extremities:? Diffuse bruising throughout, warm dry, radial & pedal pulses intact,? left arm is severely bruised from the shoulder through the hand,? anterior open wound to left calf healing without signs of infection, lower extremity chronic venous stasis changes, 2+ lower extremity edema significant bruising with a laceration to the lateral right calf sutures in place Psych:? No apparent depression or acute mood changes. Objective Labs 08/13/22 05:20 08/13/22 05:20 Labs: Laboratory Results - last 24 hr 08/13/22 08/13/22 05:20 05:20 WBC 11.5 H RBC 3.42 L Hgb 10.2 L Hct 30.8 L MCV 90.2 MCH 29.9 MCHC 33.1 RDW 16.1 H Plt Count 174 Neut % (Auto) 76.7 H Lymph % (Auto) 14.0 L [place] % (Auto) 8.3 Eos % (Auto) 0.9 L Baso % (Auto) 0.1 Neut # (Auto) 8800 H Lymph # (Auto) 1600 [place] # (Auto) 1000 H Eos # (Auto) 100 Baso # (Auto) 0 Sodium 137 Potassium 3.6 Chloride 110 H Carbon Dioxide 24 BUN 17 Creatinine 1.35 H Estimated GFR 40 L BUN/Creatinine Ratio 12.6 Glucose 89 Calcium 8.1 L Total Bilirubin 0.8 AST 20 ALT 17 Alkaline Phosphatase 108 Total Protein 5.0 L Albumin 2.6 L Globulin 2.4 Albumin/Globulin Ratio 1.1 [facility] Medical History Atypical migraine Bilateral lower extremity edema Chicken pox (~1951) Chronic adrenal insufficiency Chronic anticoagulation Chronic back pain (~1964) Chronic diarrhea Chronic kidney disease Fecal incontinence (~2021) Headache (~2021) Hearing loss (~2011) History of DVT (deep vein thrombosis) History of kidney disease (~2002) Hyperlipidemia Hypertension Interstitial lung disease Irritable bowel syndrome (~2012) Measles (~1951) Mixed hyperlipidemia Mumps (~1951) 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 Stage 3b chronic kidney disease (CKD) Uses walker Venous (peripheral) insufficiency Surgical History Anesthesia History of back surgery (~2012) History of throat surgery (~1974) Family History Father Cancer History of heart disease Mother Hypertension Social History household members: spouse Smoking Status: Never smoker alcohol intake: former Assessment & Plan Assessment & Plan narrative: 1. Sepsis without septic shock with encephalopathy, acute, present on admission -metabolic secondary to UTI -resulting in hypertensive urgency -continue sepsis rehydration, monitor for shock -continue Levaquin IV due to patient's multiple allergies -blood and urine cultures -urine culture positive sensitive to Levaquin. Blood culture negative. 2. UTI, acute, present on admission -NS at 150 cc/HR overnight -Levaquin 750 IV-pending culture results -urine culture -positive sensitive to Levaquin. -catheter in place 3. Ground level fall, acute on chronic, with head injury, frequent falls, present on admission -laceration x2 to the head -with elevated troponin 0.064-trend x3 likely demand ischemia myocardial injury, we will order for tomorrow to ensure decrease consistently -elevated bili 1.5, alk-phos 159, GGT 65-ordered right upper quadrant ultrasound -ultrasound unremarkable. -Pain management, fall precaution, assess for bleeding, neuro checks -head CT negative, MR ordered for tomorrow 4. COVID positive, acute present on admission -initial diagnosis 10 days ago -patient asymptomatic not requiring medical intervention protocols at this time. 5. Hypertensive urgency in the setting of hypertension, essential, acute on chronic, present on admission -reasonable control today, continue to follow to see if needs to be on regular antihypertensive medication. -likely secondary to pain/sepsis/UTI -patient takes no regular medications for hypertension -temporary bridge covered: metoprolol 5 mg IV for coverage:? Give for >30min sustained SBP>180,DBP>100,HR>110 (cautious of low heart rate) 6. History of DVT on chronic anticoagulation, chronic, present on admission -patient's Coumadin has been held due to her frequent falls, patient may not be the best candidate to continue with anticoagulation. 7. Chronic kidney disease stage 4, chronic, with associated hyperlipidemia, mixed, chronic present on admission- stable - BUN 2, creatinine 1.7, glucose 158, GFR 31- Baseline -trend renal function, avoid nephrotoxic medications -provide Lipitor place the patient's simvastatin ?8. Autoimmune disease, interstitial lung disease, Microscopic polyangiitis, chronic, present on admission -continue on prednisone 5 mg q.d. 9.?? Malnutrition, mild, acute, present on admission -last BMI 28, current 23.5 -patient's malnutrition places them at high risk for medical and surgical complications in relation to acute illness/chronic illness.? This increases the difficulty in complexity of medical management and increases the chances poor outcomes such as mortality and morbidity as well as impaired wound healing, and immune suppression. -dietary consult ordered to evaluate and implement steps to improve caloric intake and nutrition. 10. Hypothyroidism, acquired, chronic, present on admission -continue levothyroxine Ordered TSH/T4 -TSH done but not T4. Order free T3 and free T4 tomorrow ? 11. Atypical migraine, chronic, present on admission -continue Topiramate, 12. Depression, chronic, present on admission -continue sertraline Follow labs and clinically. Code Full PCP [place] Surrogate: Bill Love spouse DVT/VTE: Enoxaparin & SCD's
[2022-08-13 20:00] VITALS: BP 144/72; PULSE 112; RESP 18; TEMP 36.4; O2SAT 97
[2022-08-13] MEDS: ATORVASTATIN 20 MG TABLET 10 MG PO (20:12)
[2022-08-13] MEDS: TOPIRAMATE 25 MG TABLET PO (20:13)
[2022-08-13] MEDS: HYDROMORPHONE 1 MG INJ IV (22:11)
[2022-08-14] VITALS (8 sets, daily range): BP systolic 108–159; BP diastolic 56–88; PULSE 56–137; RESP 16–21; TEMP 36.1–36.8; O2SAT 95–98
[2022-08-14 05:09] LABS: Alanine Aminotransferase 16 IU/L (<35); Albumin 2.7 g/dL (3.5-5.0); Albumin Globulin Ratio 1.1 (1.0-2.8); Alkaline Phosphatase 100 U/L (38-126); Aspartate Aminotransferase 26 IU/L (14-36); Bilirubin Total 0.9 mg/dL (0.2-1.3); Blood Urea Nitrogen 18 mg/dL (7-17); Calcium 8.3 mg/dL (8.4-10.2); Carbon Dioxide 24 mmol/L (22-32); Chloride 109 mmol/L (98-107); Estimated Glomerular Filt Rate 39 mL/min (>60); Globulin 2.4 g/dL (1.7-4.1); Glucose 82 mg/dL (80-110); HEMOLYSIS < 15 (0-50); Potassium 3.8 mmol/L (3.4-5.1); Sodium 138 mmol/L (137-145); Total Protein 5.1 g/dL (6.3-8.2)
[2022-08-14 05:12] LABS: Add Manual Diff / Slide Review NO; Basophils Absolute Auto 0 /uL (0-100); Basophils Percent Auto 0.4 % (0-2); Eosinophils Absolute Auto 100 /uL (0-450); Eosinophils Percent Auto 1.1 % (2-4); Hematocrit 30.3 % (36-46); Lymphocytes Absolute Auto 2400 /uL (1100-4500); Lymphocytes Percent Auto 22.1 % (25-40); Mean Corpuscular HGB Conc 32.9 % (30-36); Mean Corpuscular Hemoglobin 30.1 PG (26-34); Mean Corpuscular Volume 91.3 fL (80-100); Monocytes Absolute Auto 900 /uL (0-900); Monocytes Percent Auto 8.7 % (3-14); Neutrophils Absolute Auto 7400 /uL (1500-7000); Neutrophils Percent Auto 67.7 % (50-75); Platelet Count 198 X10^3/uL (150-400); Red Blood Cell Count 3.32 X10^6/uL (4.0-5.2); Red Cell Distribution Width 15.9 % (11.6-14.8); White Blood Cell Count 10.9 X10^3/uL (4.5-11.0)
[2022-08-14 05:18] LABS: NT-proBNP (BNP-Adult 18+) 9890 pg/mL (<450)
[2022-08-14 05:26] LABS: Procalcitonin 0.38 ng/mL (<0.5)
[2022-08-14 05:27] LABS: Erythrocyte Sedimentation Rate 65 MM/HR (0-20)
[2022-08-14 05:28] LABS: Free T3, Triiodothyronine Free 2.15 pg/mL (2.77-5.27)
[2022-08-14 05:39] LABS: C-Reactive Protein Quant 11.7 mg/dL (<1.0)
[2022-08-14] MEDS: CITALOPRAM 10 MG TABLET 20 MG PO (08:47)
[2022-08-14] MEDS: PANTOPRAZOLE DR 20 MG TABLET PO (08:47)
[2022-08-14] MEDS: LEVOTHYROXINE 100 MCG TABLET PO (08:47)
[2022-08-14] MEDS: ENOXAPARIN 40 MG/0.4 ML SYRINGE SUBCUT (08:48)
[2022-08-14] MEDS: predniSONE 5 MG TABLET PO (08:48)
[2022-08-14] MEDS: ONDANSETRON 4 MG/2 ML INJ IV (08:53)
--- NOTE | 2022-08-14 10:28 | DI.MRI.S_ITS ---
PROCEDURE: MR HEAD/BRAIN WO CON INDICATIONS: Multiple fall/head injury clarify if occult infarct TECHNIQUE: Non-contrast axial T1 spin echo, axial T2 fast spin echo, sagittal and axial FLAIR, coronal T2 fast spin echo, axial gradient echo, axial diffusion and ADC through the brain. COMPARISON: [facility], CT, CT HEAD/BRAIN WO CON, 08/10/2022, 18:55. [facility], MR, MR HEAD/BRAIN WO CON, 07/09/2022, 9:22. FINDINGS: Image quality: Excellent. CSF spaces: Ventricles appear symmetric in size and shape. Basal cisterns are patent. No extra-axial fluid collections. Brain: No findings of new hemorrhage can be seen. There are again seen in a few tiny foci of susceptibility artifact within the cerebellum, which is attributed to small areas remote hemorrhage. No intracranial mass effects. There is cerebral volume loss for age. There are periventricular and deep white matter chronic small vessel ischemic changes. Brainstem appears normal. Diffusion-weighted images show no acute ischemic insults. No chronic ischemic insults. Normal intravascular flow voids are present. Skull and face: Calvarial bone marrow is normal in signal. Orbits are normal. Sinuses: Sinuses and mastoids are clear. IMPRESSION: No findings of acute or subacute infarction can be seen. No MRI findings of new hemorrhage are seen. Note is made of age-appropriate brain parenchymal volume loss and chronic small vessel ischemic changes. Dictated by: Danny Lou M.D. on 08/15/2022 at 10:09 Approved by: Danny Lou M.D. on 08/15/2022 at 10:10
--- NOTE | 2022-08-14 15:40 | PT.IPTN ---
Current Diagnoses Sepsis, unspecified organism (08/11/22) Physical Therapy Treatment Note M2 PT-IP Current Condition Start: 08/11/22 11:55 Freq: NEEDED Status: Active Protocol: Document 08/11/22 11:55 ES (Rec: 08/11/22 12:17 ES [id number]) Physical Therapy Current Condition Current Condition Evaluation Date 08/11/22 Treatment Diagnosis GLF, sepsis, encephalopathy, UTI, COVID Onset Date 08/10/22 M3 PT-IP Subjective Start: 08/11/22 11:55 Freq: NEEDED Status: Active Protocol: Document 08/14/22 15:25 KS (Rec: 08/14/22 16:04 KS [id number]) Subjective Physical Therapy Visit Type Type Treatment Note Visit Start Time 15:25 Visit Stop Time 15:40 Total Visit Minutes 15 Number of MAINTENANCE SERVICES DISPATCHER Visits 2 Physical Therapy Visit Comments Patient Comments Pt hesistant, reporting fatigue, but agreeable to transfer to chair. M4 PT-IP Mobility and Gait Start: 08/11/22 11:55 Freq: NEEDED Status: Active Protocol: Document 08/14/22 15:25 KS (Rec: 08/14/22 16:04 KS [id number]) PT-Bed Mobility Assessment Supine to Sit Supine to Sit Minimal Assistance Scooting Scooting to Edge of Bed Maximum Assistance PT-Transfer Assessment Sit to and From Stand Sit to and from Stand Minimal Assistance,Moderate Assistance Equipment Transfer Assistive Device Gait Belt,Front Wheeled Walker Orthotic/Prosthetic Devices or Brace: No Transfers Transfer Destination Chair Transfer Technique Stand Pivot Transfer Ability Level of Assist Minimal Assistance,1 Person Assistance,Use of Upper Extremities Comments Mobility Comments Pt in bed upon arrival, reporting pain and fatigue. Min A for sup<>sit, Max A for scooting EOB. Pt requires increased time to complete tasks and fatigues quickly. Min/Mod for sit<>Stand and stand pivot from bed to chair. Pt reported fatigue and 5 family members arrived to visit pt so treatment was cut short. Gait Assessment Comments Gait Comments unable, stand pivot transfer only. PT-Balance Assessment Sitting Balance and Reactions Static Sitting Balance Ability Fair Dynamic Sitting Balance Ability Poor Standing Balance and Reactions Static Standing Balance Ability Fair Dynamic Standing Balance Ability Poor M5 PT-IP Objective Assessments Start: 08/11/22 11:55 Freq: NEEDED Status: Active Protocol: Document 08/11/22 11:55 ES (Rec: 08/11/22 12:17 ES [id number]) Orientation Orientation/Cognition Level of Alertness Obtunded Orientation Name,Situation Comments Able to follow 1 step commands Gross Range of Motion Upper Extremity ROM Assessment Left Impaired Impairments L elbow and shoulder limited 90% due to pain Lower Extremity ROM Assessment Right Impaired Impairments R hip and knee limited due to pain Strength Upper Extremity Strength Assessment Bilaterally Impaired Lower Extremity Strength Assessment Bilaterally Impaired Comments Strength Comments RUE grossly 4-/5 LUE unable to move against gravity due to pain RLE grossly 3+/5, pain with knee flexion/extension LLE grossly 4-/5 M6 PT-IP Treatment Start: 08/11/22 11:55 Freq: NEEDED Status: Active Protocol: Document 08/14/22 16:04 KS (Rec: 08/14/22 16:04 KS [id number]) Physical Therapy Treatment Education Education Provided Safety M7 PT-IP Assessment and Plan Start: 08/11/22 11:55 Freq: NEEDED Status: Active Protocol: Document 08/14/22 15:25 KS (Rec: 08/14/22 16:04 KS [id number]) PT Summary Assessment and Plan Potential Rehabilitation Potential Fair Summary Impairments Pain,ROM,Strength,Balance, Cognition,Bed Mobility, Transfers,Gait,Activity Tolerance Progress Towards Goals Slow Progress due to Pain,Slow Progress due to Medical Issues,Slow Progress due to Activity Tolerance Assessment Summary Pt limited by pain, weakness, and low tolerance for activity . Min A for sup<>Sit and Max A for scooting EOB. Min/mod for sit<>Stand and stand pivo from bed to chair. Pt expressed fatigue following transfer. Pt left in chair w/ 5 family members in room visiting. At this time, it appears pt will require SNF to improve strength and functional mobility. Will continue to assess progress. Goals Bed Mobility Goal Standby Assistance Transfer Goal Standby Assistance,Four Wheeled Walker Gait Goal Standby Assistance,Four Wheel Walker Gait Distance 50 ft Other Goals Patient will be able to tolerate sitting EOB with SBA for at least 10 minutes without LOB. Patient will be able to tolerate standing with BUE support and SBA for at least 5 minutes without LOB. Days to Meet Goals 7 Frequency of Treatment Frequency Of Treatment Once a Day Treatment Plan Physical Therapy Treatment Plan Bed Mobility Training,Transfer Training,Gait Training, Therapeutic Exercise,Balance Retraining,Discharge Planning, Neuromuscular Re-ed,Manual Therapy Other Recommendations and Next Treatment Pre-medicate for pain control, Focus progress to sitting EOB/ transfer to chair as tolerated . Precautions Other Precautions High rall risk Recommendations To Nursing Amount of Assist Needed 1 Person Assist,2 Person Assist Discharge Recommendations PT Discharge Recommendations SNF Rehab Transportation Needs at Discharge Wheelchair/Cabulance,Stretcher /Ambulance
--- NOTE | 2022-08-14 16:14 | P.PN_ITS ---
Subjective Subjective Interval history: Patient is slowly feeling better, having more energy and slightly less pain. Exam Vital Signs (past 8 hours): - 08/14/22 12:00 08/14/22 15:42 Temperature 98.3 F 97.8 F Pulse Rate 65 137 H Respiratory Rate 21 17 Blood Pressure 108/56 L 144/78 H Pulse Oximetry 98 95 Oxygen Flow Rate 0 0 Oxygen Delivery Method Room Air Oxygen Flow Rate 0 Narrative Exam Narrative: General:? Frail-appearing, thin pleasant elderly female, in no acute distress. HEENT:? dry mucous membranes, normal sclera with reactive pupils, airway is patent.? Treated laceration left forehead. Neck:? No JVD, supple Respiratory:? Lung sounds are clear with no wheezes or crackles. Cardiac:? rate irregular rhythm without no murmurs, rubs or gallops, currently tachycardic Abdomen:? Soft, nontender, bowel sounds present. Skin:? Warm and dry, multiple bruising present various stages of healing to upper and lower extremities, Neurologic:? Globally weak but otherwise neurologically intact. Extremities:? Diffuse bruising throughout, warm dry, radial & pedal pulses intact,? left arm is severely bruised from the shoulder through the hand,? anterior open wound to left calf healing without signs of infection, lower extr emity chronic venous stasis changes, 2+ lower extremity edema significant bruising with a laceration to the lateral right calf sutures in place Psych:? No apparent depression or acute mood change Objective Labs 08/14/22 04:15 08/14/22 04:15 Labs: Laboratory Results - last 24 hr 08/14/22 08/14/22 08/14/22 04:15 04:15 04:15 WBC 10.9 RBC 3.32 L Hgb 10.0 L Hct 30.3 L MCV 91.3 MCH 30.1 MCHC 32.9 RDW 15.9 H Plt Count 198 Neut % (Auto) 67.7 Lymph % (Auto) 22.1 L [place] % (Auto) 8.7 Eos % (Auto) 1.1 L Baso % (Auto) 0.4 Neut # (Auto) 7400 H Lymph # (Auto) 2400 [place] # (Auto) 900 Eos # (Auto) 100 Baso # (Auto) 0 ESR Sodium 138 Potassium 3.8 Chloride 109 H Carbon Dioxide 24 BUN 18 H Creatinine 1.38 H Estimated GFR 39 L BUN/Creatinine Ratio 13.0 Glucose 82 Calcium 8.3 L Total Bilirubin 0.9 AST 26 ALT 16 Alkaline Phosphatase 100 Troponin I 0.030 C-Reactive Protein NT-Pro-B Natriuret Pep Total Protein 5.1 L Albumin 2.7 L Globulin 2.4 Albumin/Globulin Ratio 1.1 Procalcitonin Free T3 08/14/22 08/14/22 08/14/22 04:15 04:15 04:15 WBC RBC Hgb Hct MCV MCH MCHC RDW Plt Count Neut % (Auto) Lymph % (Auto) [place] % (Auto) Eos % (Auto) Baso % (Auto) Neut # (Auto) Lymph # (Auto) [place] # (Auto) Eos # (Auto) Baso # (Auto) ESR 65 H Sodium Potassium Chloride Carbon Dioxide BUN Creatinine Estimated GFR BUN/Creatinine Ratio Glucose Calcium Total Bilirubin AST ALT Alkaline Phosphatase Troponin I C-Reactive Protein 11.7 H NT-Pro-B Natriuret Pep 9890 H Total Protein Albumin Globulin Albumin/Globulin Ratio Procalcitonin 0.38 Free T3 2.15 L [facility] Medical History Atypical migraine Bilateral lower extremity edema Chicken pox (~1951) Chronic adrenal insufficiency Chronic anticoagulation Chronic back pain (~1964) Chronic diarrhea Chronic kidney disease Fecal incontinence (~2021) Headache (~2021) Hearing loss (~2011) History of DVT (deep vein thrombosis) History of kidney disease (~2002) Hyperlipidemia Hypertension Interstitial lung disease Irritable bowel syndrome (~2012) Measles (~1951) Mixed hyperlipidemia Mumps (~1951) 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 Stage 3b chronic kidney disease (CKD) Uses walker Venous (peripheral) insufficiency Surgical History Anesthesia History of back surgery (~2012) History of throat surgery (~1974) Family History Father Cancer History of heart disease Mother Hypertension Social History household members: spouse Smoking Status: Never smoker alcohol intake: former Assessment & Plan Assessment & Plan narrative: 1. Sepsis without septic shock with encephalopathy, acute, present on admission -metabolic secondary to UTI -resulting in hypertensive urgency -continue sepsis rehydration, monitor for shock -continue Levaquin IV due to patient's multiple allergies -blood and urine cultures -urine culture positive sensitive to Levaquin.? Blood culture negative. 2. UTI, acute, present on admission -NS at 150 cc/HR overnight -Levaquin 750 IV-pending culture results -urine culture -positive sensitive to Levaquin. -catheter in place 3. Ground level fall, acute on chronic, with head injury, frequent falls, present on admission -laceration x2 to the head -with elevated troponin 0.064-trend x3 likely demand ischemia myocardial injury, troponin normal today. -elevated bili 1.5, alk-phos 159, GGT 65-ordered right upper quadrant ultrasound -ultrasound unremarkable. -Pain management, fall precaution, assess for bleeding, neuro checks -head CT negative, MR ordered for tomorrow to assess for any occult intracranial injuries/infarct 4. COVID positive, acute present on admission -initial diagnosis 10 days ago -patient asymptomatic not requiring medical intervention protocols at this time. 5. Hypertensive urgency in the setting of hypertension, essential, acute on chronic, present on admission -reasonable control today, continue to follow to see if needs to be on regular antihypertensive medication. Due to persistence of elevated blood pressure and tachycardia patient started on metoprolol ER b.i.d. 25 mg -likely secondary to pain/sepsis/UTI -patient takes no regular medications for hypertension -temporary bridge covered: metoprolol 5 mg IV for coverage:? Give for >30min sustained SBP>180,DBP>100,HR>110 (cautious of low heart rate) -has been discontinued 6. History of DVT on chronic anticoagulation, chronic, present on admission -patient's Coumadin has been held due to her frequent falls, patient may not be the best candidate to continue with anticoagulation. 7. Chronic kidney disease stage 4, chronic, with associated hyperlipidemia, mixed, chronic present on admission- stable - BUN 2, creatinine 1.7, glucose 158, GFR 31- Baseline -patient currently is better than typical baseline with creatinine of 1.38 and GFR estimate 39 -trend renal function, avoid nephrotoxic medications -provide Lipitor place the patient's simvastatin ?8. Autoimmune disease, interstitial lung disease, Microscopic polyangiitis, chronic, present on admission -continue on prednisone 5 mg q.d. 9.?? Malnutrition, mild, acute, present on admission -last BMI 28, current 23.5 -patient's malnutrition places them at high risk for medical and surgical complications in relation to acute illness/chronic illness.? This increases the difficulty in complexity of medical management and increases the chances poor outcomes such as mortality and morbidity as well as impaired wound healing, and immune suppression. -dietary consult ordered to evaluate and implement steps to improve caloric intake and nutrition. 10. Hypothyroidism, acquired, chronic, present on admission -continue levothyroxine Ordered TSH/T4 -TSH done but not T4.? Ordered free T3 and free T4. Free T3 is low and therefore levothyroxine was increased to 125 mcg daily. ? 11. Atypical migraine, chronic, present on admission -continue Topiramate, 12. Depression, chronic, present on admission -continue sertraline 13. Elevated markers of C-reactive protein, ESR 65, however white blood count now is normal at 10.9 -continue to follow 14. Elevated BNP trending downward. Continue to follow. Follow labs and clinically. Code Full PCP Jose Surrogate: Bill Love spouse DVT/VTE:? Enoxaparin & SCD'
[2022-08-14] MEDS: OXYCODONE IR 5 MG TABLET PO ×2 (16:38→20:57)
[2022-08-14] MEDS: ACETAMINOPHEN 325 MG TABLET 650 MG PO (16:38)
[2022-08-14] MEDS: METOPROLOL ER 25 MG TABLET PO (20:57)
[2022-08-14] MEDS: methocarbamoL 500 MG TABLET PO (20:57)
[2022-08-14] MEDS: TOPIRAMATE 25 MG TABLET PO (20:57)
[2022-08-14] MEDS: ATORVASTATIN 20 MG TABLET 10 MG PO (20:59)
[2022-08-14] MEDS: levoFLOXacin 250 MG TABLET 750 MG PO (21:04)
[2022-08-14] MEDS: HYDROMORPHONE 1 MG INJ IV (23:02)
[2022-08-15] VITALS (7 sets, daily range): BP systolic 127–165; BP diastolic 70–88; PULSE 66–130; RESP 16–17; TEMP 36.4–36.7; O2SAT 94–98
[2022-08-15 05:43] LABS: Add Manual Diff / Slide Review NO; Basophils Absolute Auto 0 /uL (0-100); Basophils Percent Auto 0.2 % (0-2); Eosinophils Absolute Auto 100 /uL (0-450); Hematocrit 30.7 % (36-46); Hemoglobin 10.2 g/dL (12.0-16.0); Lymphocytes Absolute Auto 2200 /uL (1100-4500); Lymphocytes Percent Auto 22.9 % (25-40); Mean Corpuscular HGB Conc 33.2 % (30-36); Mean Corpuscular Hemoglobin 29.9 PG (26-34); Mean Corpuscular Volume 90.2 fL (80-100); Monocytes Absolute Auto 1000 /uL (0-900); Monocytes Percent Auto 10.6 % (3-14); Neutrophils Absolute Auto 6200 /uL (1500-7000); Neutrophils Percent Auto 65.3 % (50-75); Platelet Count 207 X10^3/uL (150-400); Red Cell Distribution Width 15.9 % (11.6-14.8); White Blood Cell Count 9.5 X10^3/uL (4.5-11.0)
[2022-08-15 05:58] LABS: Alanine Aminotransferase 16 IU/L (<35); Albumin 2.6 g/dL (3.5-5.0); Alkaline Phosphatase 105 U/L (38-126); Aspartate Aminotransferase 19 IU/L (14-36); BUN Creatinine Ratio 14.8 (6-22); Bilirubin Total 0.7 mg/dL (0.2-1.3); Blood Urea Nitrogen 21 mg/dL (7-17); Calcium 8.3 mg/dL (8.4-10.2); Carbon Dioxide 26 mmol/L (22-32); Chloride 109 mmol/L (98-107); Erythrocyte Sedimentation Rate 60 MM/HR (0-20); Estimated Glomerular Filt Rate 38 mL/min (>60); Globulin 2.5 g/dL (1.7-4.1); Glucose 83 mg/dL (80-110); HEMOLYSIS < 15 (0-50); Potassium 3.6 mmol/L (3.4-5.1); Sodium 139 mmol/L (137-145); Total Protein 5.1 g/dL (6.3-8.2)
[2022-08-15 06:01] LABS: C-Reactive Protein Quant 6.4 mg/dL (<1.0)
[2022-08-15] MEDS: PANTOPRAZOLE DR 20 MG TABLET PO (06:01)
[2022-08-15] MEDS: LEVOTHYROXINE 100 MCG TABLET PO (06:01)
[2022-08-15] MEDS: LEVOTHYROXINE 25 MCG TABLET PO (06:01)
[2022-08-15 06:06] LABS: NT-proBNP (BNP-Adult 18+) 9690 pg/mL (<450)
[2022-08-15] MEDS: ONDANSETRON 4 MG/2 ML INJ IV (06:08)
--- NOTE | 2022-08-15 08:40 | PT.IPTN ---
Current Diagnoses Sepsis, unspecified organism (08/11/22) Physical Therapy Treatment Note M2 PT-IP Current Condition Start: 08/11/22 11:55 Freq: NEEDED Status: Active Protocol: Document 08/15/22 08:10 SP (Rec: 08/15/22 09:03 SP [id number]) Physical Therapy Current Condition Current Condition Evaluation Date 08/11/22 Treatment Diagnosis GLF, sepsis, encephalopathy, UTI, COVID Onset Date 08/10/22 M3 PT-IP Subjective Start: 08/11/22 11:55 Freq: NEEDED Status: Active Protocol: Document 08/15/22 08:10 SP (Rec: 08/15/22 09:03 SP [id number]) Subjective Physical Therapy Visit Type Type Treatment Note Visit Start Time 08:10 Visit Stop Time 08:40 Total Visit Minutes 30 Notes Vitals throughout tx: sup: RUE BP 165/76 HR 137 automated. seated EOB HR 88 post mobility: BP 149/77 HR 54 SaO2 High 90s. SPTA Ibsi assisted pt and EARLY CHILDHOOD ASSOCIATE TEACHER Julia with mobility throughout tx as needed while under direct supverision and instruction of EARLY CHILDHOOD ASSOCIATE TEACHER Julia. Number of EARLY CHILDHOOD ASSOCIATE TEACHER Visits 3 Physical Therapy Visit Comments Patient Comments Pt agreeable to working with therapy and allowing SPTA assist her during tx. Pt states has an MRI scheduled. Patient Goals To eventually return home if able. Therapy Pain Assessment Pain When Pain Assessed During Mobility Pain Present Pain Present Pain Reported Location Left Upper Arm Scale Used no scale rating provided Description With Movement Pain Management Techniques Modification of Treatment,Re- positioning,Timing of Activity with Medications M4 PT-IP Mobility and Gait Start: 08/11/22 11:55 Freq: NEEDED Status: Active Protocol: Document 08/15/22 08:10 SP (Rec: 08/15/22 09:03 SP [id number]) PT-Bed Mobility Assessment Supine to Sit Supine to Sit Contact Guard Assistance,Head of Bed Elevated Scooting Scooting to Edge of Bed Maximum Assistance PT-Transfer Assessment Sit to and From Stand Sit to and from Stand Contact Guard Assistance, Moderate Assistance,2 Person Assistance,Use of Upper Extremities Equipment Transfer Assistive Device Gait Belt,Front Wheeled Walker Orthotic/Prosthetic Devices or Brace: No Transfers Transfer Destination Chair Transfer Technique Stand Pivot Transfer Ability Level of Assist Minimal Assistance,Moderate Assistance,2 Person Assistance ,Use of Upper Extremities Comments Mobility Comments Elevated sup>sit CGA and able complete BLE to EOB self, Max A to complete scoot to EOB via transfer pad. STS Min/Mod A x1 CGA SPTA for safety due to wt shift retro but self correct with cues. SPT use of FWW bed>chair Min/MOd support required for trunk wt shifting , cues for sequencing FWW/ BLEs and centering self, safety reach back Support for slow descent sit in chair. Pt had call light and all needs in reach. Pt reports decreased endurance and not sure can stay up in chair long for breakfast and request to keep periwic with her during mobility not sure has endurance for many transfers to BSC yet. EARLY CHILDHOOD ASSOCIATE TEACHER recommending SNF vs 24/10 with spouse as she would prefer due to decreased strength/ endurance. Will continue to assess progress. Gait Assessment Comments Gait Comments unable, stand pivot transfer only, cues for directioning each LE/ FWW and center self proximal to FWW, safety reach back to with slow descent. Stair Climbing Assessment Comments Stair Climbing Comments Does not have stairs need to assess. PT-Balance Assessment Sitting Balance and Reactions Static Sitting Balance Ability Good Dynamic Sitting Balance Ability Fair Standing Balance and Reactions Static Standing Balance Ability Fair Dynamic Standing Balance Ability Poor Device Used FWW M5 PT-IP Objective Assessments Start: 08/11/22 11:55 Freq: NEEDED Status: Active Protocol: Document 08/11/22 11:55 ES (Rec: 08/11/22 12:17 ES [id number]) Orientation Orientation/Cognition Level of Alertness Obtunded Orientation Name,Situation Comments Able to follow 1 step commands Gross Range of Motion Upper Extremity ROM Assessment Left Impaired Impairments L elbow and shoulder limited 90% due to pain Lower Extremity ROM Assessment Right Impaired Impairments R hip and knee limited due to pain Strength Upper Extremity Strength Assessment Bilaterally Impaired Lower Extremity Strength Assessment Bilaterally Impaired Comments Strength Comments RUE grossly 4-/5 LUE unable to move against gravity due to pain RLE grossly 3+/5, pain with knee flexion/extension LLE grossly 4-/5 M6 PT-IP Treatment Start: 08/11/22 11:55 Freq: NEEDED Status: Active Protocol: Document 08/15/22 08:10 SP (Rec: 08/15/22 09:03 SP [id number]) Physical Therapy Treatment Education Education Provided Safety M7 PT-IP Assessment and Plan Start: 08/11/22 11:55 Freq: NEEDED Status: Active Protocol: Document 08/15/22 08:10 SP (Rec: 08/15/22 09:03 SP [id number]) PT Summary Assessment and Plan Potential Rehabilitation Potential Fair Status of Condition at Evaluation Evolving Summary Impairments Pain,ROM,Strength,Balance, Cognition,Bed Mobility, Transfers,Gait,Activity Tolerance Progress Towards Goals Slow Progress due to Pain,Slow Progress due to Medical Issues,Slow Progress due to Activity Tolerance Assessment Summary Pt limited by L UE pain use mobility w/ FWW, weakness, and low tolerance for activity. CGA for sup<>Sit and Max A for scooting EOB. Min/mod for sit <>Stand w/ FWW and stand pivo from bed to chair. Pt expressed fatigue following transfer and decreased tolerance to stay up in chair. Pt left in chair with call light and all needs in reach with breakfast. At this time, recommending SNF vs HHPT 24/10 to improve strength and functional mobility, recommending CGT with spouse if able to provide assist required. Will continue to assess progress. Goals Bed Mobility Goal Standby Assistance Transfer Goal Standby Assistance,Four Wheeled Walker Gait Goal Standby Assistance,Four Wheel Walker Gait Distance 50 ft Other Goals Patient will be able to tolerate sitting EOB with SBA for at least 10 minutes without LOB. Patient will be able to tolerate standing with BUE support and SBA for at least 5 minutes without LOB. Days to Meet Goals 7 Frequency of Treatment Frequency Of Treatment Once a Day Treatment Plan Physical Therapy Treatment Plan Bed Mobility Training,Transfer Training,Gait Training, Therapeutic Exercise,Balance Retraining,Discharge Planning, Neuromuscular Re-ed,Manual Therapy Other Recommendations and Next Treatment Progress transfers, gait to Focus bathroom w/ FWW, CGT with spouse. Precautions Other Precautions High rall risk Recommendations To Nursing Amount of Assist Needed 1 Person Assist Discharge Recommendations PT Discharge Recommendations Home with 24/10 Assist Available,Home Health,SNF Rehab,Home vs SNF Transportation Needs at Discharge Private Vehicle,Wheelchair/ Cabulance
[2022-08-15] MEDS: ACETAMINOPHEN 325 MG TABLET 650 MG PO ×2 (09:34→17:56)
[2022-08-15] MEDS: predniSONE 5 MG TABLET PO (09:34)
[2022-08-15] MEDS: CITALOPRAM 10 MG TABLET 20 MG PO (09:36)
[2022-08-15] MEDS: METOPROLOL ER 25 MG TABLET PO ×2 (09:36→22:11)
[2022-08-15] MEDS: SODIUM CHLORIDE 0.9% FLUSH 10 ML IV (09:36)
[2022-08-15] MEDS: ENOXAPARIN 40 MG/0.4 ML SYRINGE SUBCUT (09:36)
--- NOTE | 2022-08-15 10:55 | SLP.IPNOTE ---
Attempted follow-up for diet tolerance with pt at 10:40, but pt was getting MRI. Will attempt later today.
--- NOTE | 2022-08-15 11:31 | OT.IPNOTE ---
Attempted to see pt for OT eval and earlier waiting on MRI and afterwards states too tired and waiting to be seen tomorrow. To check on the pt later. Per case management, pt wanting to go home versus back to [facility].
--- NOTE | 2022-08-15 11:36 | CM.DPC ---
DCP Continued: CM team spoke with RN and OT about current patient status. OT reported patient exhausted from MRI and is planning to work with OT later. PT recommends SNF or Home with assistant associate full professor assist at this time. CM team entered room and introduced self and role. Patient appeared A/Ox4 but appeared tired and reported feeling exhausted. Patient reported wanting to go home but claimed she was unsure if was able to provide the assistant associate full professor care needed. Patient reports being unsure about going back to [facility]. CM team inquired about looking into alternative SNF options, but patient was unsure at this time and requested CM team to return later after patient rested. Plan A: Return to [facility] tomorrow. Plan B: Home with home health and assistant associate full professor assist if medically cleared to do so. Plan C: If patient requests, CM Team will look into alternative SNF options. NHAN Goncalves.
--- NOTE | 2022-08-15 12:44 | PC.NURSE ---
Dressings to bilateral lower extremities changed per orders. (2 on RLE and 1 on LLE). Wet to dry with allevyn gentle border non adherent dressings covering. Bilateral legs re wrapped with SUSHMA bandages. AMY wrapped with SUSHMA bandage and elevated on pillow for swelling. Patient tolerated well. Call light within reach.
--- NOTE | 2022-08-15 13:09 | P.PN_ITS ---
Subjective Subjective Interval history: Patient present with her daughter in the room. Continues to feel better. Eager to go home. Somewhat hesitant about going to [facility] to her experienced therapy for during the COVID outbreak. Patient reassured by myself and her daughter. Patient indicating that her left arm feels a little bit more swollen today and warmer. Discussed with the patient that this is not unusual with the resolution of the contusions on her left arm. No other new complaints. Exam Vital Signs (past 8 hours): - 08/15/22 08:00 08/15/22 08:00 Pulse Rate 130 H Respiratory Rate 17 Blood Pressure 165/75 H Pulse Oximetry 95 Oxygen Delivery Method Room Air Oxygen Flow Rate 0 Oxygen Delivery Method Room Air Oxygen Flow Rate 0 Narrative Exam Narrative: General:? Frail-appearing, thin pleasant elderly female, in no acute distress. HEENT:? dry mucous membranes, normal sclera with reactive pupils, airway is patent.? Treated laceration left forehead. Neck:? No JVD, supple Respiratory:? Lung sounds are clear with no wheezes or crackles. Cardiac:? rate irregular rhythm without no murmurs, rubs or gallops, currently tachycardic Abdomen:? Soft, nontender, bowel sounds present. Skin:? Warm and dry, multiple bruising present various stages of healing to upper and lower extremities, Neurologic:? Globally weak but otherwise neurologically intact. Extremities:? Diffuse bruising throughout, warm dry, radial & pedal pulses intact,? left arm is severely bruised from the shoulder through the hand,? anterior open wound to left calf healing without signs of infection, lower extremity chronic venous stasis changes, 2+ lower extremity edema significant bruising with a laceration to the lateral right calf sutures in place Psych:? No apparent depression or acute mood change Objective Labs 08/15/22 04:50 08/15/22 04:50 Labs: Laboratory Results - last 24 hr 08/15/22 08/15/22 08/15/22 04:50 04:50 04:50 WBC 9.5 RBC 3.40 L Hgb 10.2 L Hct 30.7 L MCV 90.2 MCH 29.9 MCHC 33.2 RDW 15.9 H Plt Count 207 Neut % (Auto) 65.3 Lymph % (Auto) 22.9 L [place] % (Auto) 10.6 Eos % (Auto) 1.0 L Baso % (Auto) 0.2 Neut # (Auto) 6200 Lymph # (Auto) 2200 [place] # (Auto) 1000 H Eos # (Auto) 100 Baso # (Auto) 0 ESR 60 H Sodium 139 Potassium 3.6 Chloride 109 H Carbon Dioxide 26 BUN 21 H Creatinine 1.42 H Estimated GFR 38 L BUN/Creatinine Ratio 14.8 Glucose 83 Calcium 8.3 L Total Bilirubin 0.7 AST 19 ALT 16 Alkaline Phosphatase 105 C-Reactive Protein 6.4 H NT-Pro-B Natriuret Pep 9690 H Total Protein 5.1 L Albumin 2.6 L Globulin 2.5 Albumin/Globulin Ratio 1.0 PFSH Medical History Atypical migraine Bilateral lower extremity edema Chicken pox (~1951) Chronic adrenal insufficiency Chronic anticoagulation Chronic back pain (~1964) Chronic diarrhea Chronic kidney disease Fecal incontinence (~2021) Headache (~2021) Hearing loss (~2011) History of DVT (deep vein thrombosis) History of kidney disease (~2002) Hyperlipidemia Hypertension Interstitial lung disease Irritable bowel syndrome (~2012) Measles (~1951) Mixed hyperlipidemia Mumps (~1951) 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 Stage 3b chronic kidney disease (CKD) Uses walker Venous (peripheral) insufficiency Surgical History Anesthesia History of back surgery (~2012) History of throat surgery (~1974) Family History Father Cancer History of heart disease Mother Hypertension Social History household members: spouse Smoking Status: Never smoker alcohol intake: former Assessment & Plan Assessment & Plan narrative: 1. Sepsis without septic shock with encephalopathy, acute, present on admission -metabolic secondary to UTI -resulting in hypertensive urgency -continue sepsis rehydration, monitor for shock -continue Levaquin IV due to patient's multiple allergies -blood and urine cultures -urine culture positive sensitive to Levaquin.? Blood culture negative. -currently all resolved 2. UTI, acute, present on admission -NS at 150 cc/HR overnight -Levaquin 750 IV-pending culture results -urine culture -positive sensitive to Levaquin. -catheter in place -switch to oral Levaquin 750 mg Q 48 hours with last dose on August 22, 2022 3. Ground level fall, acute on chronic, with head injury, frequent falls, present on admission -laceration x2 to the head-sutures to me be removed on Aug 17 2022 -with elevated troponin 0.064-trend x3 likely demand ischemia myocardial injury, troponin normal today. -elevated bili 1.5, alk-phos 159, GGT 65-ordered right upper quadrant ultrasound -ultrasound unremarkable. -Pain management, fall precaution, assess for bleeding, neuro checks -head CT negative, MR ordered to assess for any occult intracranial injuries/infarct -MR normal the brain 4. COVID positive, acute present on admission -initial diagnosis 10 days ago -patient asymptomatic not requiring medical intervention protocols at this time. 5. Hypertensive urgency in the setting of hypertension, essential, acute on chronic, present on admission -reasonable control today, continue to follow to see if needs to be on regular antihypertensive medication.? Due to persistence of elevated blood pressure and tachycardia patient started on metoprolol ER b.i.d. 25 mg -likely secondary to pain/sepsis/UTI -temporary bridge covered: metoprolol 5 mg IV for coverage:? Give for >30min sustained SBP>180,DBP>100,HR>110 (cautious of low heart rate) -has been discontinued 6. History of DVT on chronic anticoagulation, chronic, present on admission -patient's Coumadin has been held due to her frequent falls, patient may not be the best candidate to continue with anticoagulation. 7. Chronic kidney disease stage 4, chronic, with associated hyperlipidemia, mixed, chronic present on admission- stable - BUN 2, creatinine 1.7, glucose 158, GFR 31- Baseline -patient currently is bet ter than typical baseline with creatinine of 1.38 and GFR estimate 39 -trend renal function, avoid nephrotoxic medications -provide Lipitor in place the patient's simvastatin ?8. Autoimmune disease, interstitial lung disease, Microscopic polyangiitis, chronic, present on admission -continue on prednisone 5 mg q.d. 9.?? Malnutrition, mild, acute, present on admission -last BMI 28, current 23.5 -patient's malnutrition places them at high risk for medical and surgical complications in relation to acute illness/chronic illness.? This increases the difficulty in complexity of medical management and increases the chances poor outcomes such as mortality and morbidity as well as impaired wound healing, and immune suppression. -dietary consult ordered to evaluate and implement steps to improve caloric intake and nutrition. 10. Hypothyroidism, acquired, chronic, present on admission -continue levothyroxine Ordered TSH/T4 -TSH done but not T4.? Ordered free T3 and free T4.? Free T3 is low and therefore levothyroxine was increased to 125 mcg daily. ? 11. Atypical migraine, chronic, present on admission -continue Topiramate, 12. Depression, chronic, present on admission -continue sertraline 13. Elevated markers of C-reactive protein, ESR now 60, however white blood count now is normal at 9.5 14. Elevated BNP trending downward. Medically stable for SNF tomorrow Code Full PCP Jose Surrogate: Jabari Love spouse DVT/VTE:? Enoxaparin & SCD'
--- NOTE | 2022-08-15 13:53 | ST.IPIE ---
Visit Care Team Role Provider Type Jamir Garcia MD Primary Care Provider Physician Specialty: Internal Medicine Address: [address] [place] [address] Email: [email or web address] Agustina Hays MD Other Providers Physician Specialty: General Surgery Address: [address] [place] [address] Email: Tereza Pablo MD Emergency Provider Physician Referring Provider Specialty: Emergency Medicine Address: [address] [place] [address] Email: Beverley Pendleton [facility] Admit Provider Physician Attending Provider Specialty: Hospitalist Internal Medicine Address: [address] [place] [address] Email: Current Diagnoses Sepsis, unspecified organism (08/11/22) Past Medical History (Last Reviewed 08/14/22 @ 16:15 by Marilin Nichole MD) Atypical migraine (Medical) Bilateral lower extremity edema (Medical) Chicken pox (Medical ~1951) Chronic adrenal insufficiency (Medical) Chronic anticoagulation (Medical) Chronic back pain (Medical ~1964) Chronic diarrhea (Medical) Chronic kidney disease (Medical) Fecal incontinence (Medical ~2021) Headache (Medical ~2021) Hearing loss (Medical ~2011) History of DVT (deep vein thrombosis) (Medical) History of kidney disease (Medical ~2002) Hyperlipidemia (Medical) Hypertension (Medical) Interstitial lung disease (Medical) Irritable bowel syndrome (Medical ~2012) Measles (Medical ~1951) Mixed hyperlipidemia (Medical) Mumps (Medical ~1951) Primary osteoarthritis involving multiple joints (Medical) Secondary hyperparathyroidism of renal origin (Medical) Stage 3b chronic kidney disease (CKD) (Medical) Uses walker (Medical) Difficulty moving Venous (peripheral) insufficiency (Medical) ST IP Initial Evaluation Report ASSOCIATE CHIEF NURSE Clinical Swallow Evaluation Start: 08/11/22 12:38 Freq: Status: Active Protocol: Document 08/11/22 12:38 LNK (Rec: 08/11/22 13:18 LNK [id number]) Clinical Swallow Evaluation Session Time Visit Start Time 12:00 Visit Stop Time 12:20 Total Visit Minutes [address] Flores Reason for Referral dysphagia Setting Assessment Location Acute Care Visit Type Note Type Initial evaluation Next Note Type Next Note Type Re-evaluation Patient Information Identification Type Name History Christine Burger (Lorraine) is a bashir 76 year-old patient with a history of hypertension , hyperlipidemia, chronic hip pain, autoimmune disease, chronic kidney disease stage 4 , hypothyroidism, reflux, prior DVT currently anticoagulated on Coumadin, bilateral lower extremity edema, chronic spondylosis/ lumbar stenosis with acute sacral insufficiency fractures bilaterally secondary to pathological fractures from osteoporosis, L2 compression fracture, prior lumbar laminectomy,? right hip arthroplasty, LLE venous insufficiency, and pulmonary fibrosis who was recently hospitalized at [place] following a fall multiple injuries from 07/08 to 2022 discharged to [facility]. Patient is admitted for ground level fall , sepsis, encephalopathy, UTI, COVID, and hypertensive urgency. Subjective Observations Pt was in her bed with eyes closed but awakened easily when this ASSOCIATE CHIEF NURSE entered the room . Pt was agreeable to tryu some food Reported by Patient Comment Pt appeared to be hurting when she tried to adjust herself in bed. Current Diet Regular,Thin liquids Baseline Feeding Method Dependent for feeding Objective Assessment Mental Status Alert,Responsive,Cooperative Oral Integrity WFL Dentition Within normal limits Lip Function Within normal limits Tongue Function Within normal limits Jaw Function Within normal limits Hard/Soft Palate Function Within normal limits Comment Pt's OME indicated form and function to be WFL. Pt's mouth was very dry; moistened with toothette. Food and Liquid Trials Position During Assessment Upright (90 degrees) Liquids Trialed Ice chips,Thin,[place] Solids Trialed Puree Administration Type Tea spoon,Cup consecutive sips ,Straw,Needs some assistance, Dependent feeding Oral Impairment Within functional limits Oral Phase Comments Oral phase of swallowing with puree texture was WFL with puree texture. Pharyngeal Impairment Within functional limits Pharyngeal Phase Comments Per palpation, hyolaryngeal elevation was adequate. No cough/choke noted. No overt s /sx aspiration at bedside. Instrumental assessment would better indicate aspiration, if indicated. Fatigue/Endurance Severe fatigue Results Physically, pt's OME, oral and pharyngeal phases of swallowing were observed to be WFL. However, nursing reported that the pt was observed to chew a bite of [place] toast x 20 minutes with bilateral pocketing noted. Pt was unaware of pocketing. Pt is reported to be confused. Pt also diagnosed with encephalopathy which may exacerbate pt's baseline confusion. Continuous chewing of solid foods is not unusual with confused pts. Puree textures were safely and completey swallowed by pt during assessment. Pt was able o swallow thin liquids safely with a straw. No cough/choke or overt s/sx aspiration observed. Findings Swallowing Function Oral phase dysphagia Swallowing Function Comments Pt's swallowing deficit appears to be related to her cognitive status Severity of Swallow Impairment Moderately-severely impaired Contributing Factors to Swallow Reduced alertness or attention Impairment Comments Diminished cognition Prognosis Fair Comment Prognosis is good with appropriate diet and assissted feeding Impact on Safety and Functioning Risk for aspiration,Risk for inadequate nutrition/hydration Recommendations Instrumental Assessment No Swallowing Treatment Yes Frequency 1-2x/day while inpatient Recommended Solids Puree Recommended Liquids Thin Safety Precautions/Swallowing Supervision needed for all Recommendations meals,Feed only when alert, Remain upright (90 degrees) during all oral intake,Upright position at least 30 minutes after meals,Small bites and sips when eating,Slow rate; swallow between bites,Set-up assistance,1 to 1 feeding assistance,Family assistance/ supervision,Check for pocketing Medication Recommendations Crushed,Crushed in Carrier Discharge Recommendations long-term facility,penitentiary care facility Referrals Recommended Referrals Dietary Education Patient/Caregiver Education Patient expressed understanding of evaluation, Patient expressed agreement with goals & treatment plans, Patient expressed understanding of feeding recommendations Goals Long-term Goals Pt will safely tolerate the least restrictive diet to meet hydration and nutritional needs without s/sx aspiration.
[2022-08-15] MEDS: OXYCODONE IR 5 MG TABLET PO (14:20)
--- NOTE | 2022-08-15 15:08 | OT.IPNOTE ---
Check on pt for OT eval again and pt states too tired and requesting OT to try tomorrow.
--- NOTE | 2022-08-15 16:29 | PC.NURSE ---
Clarified with Dr. Jacobs that sutures to head laceration are not to be removed today but scheduled to be removed on 08/17. There are not sutures to leg wound at this time, (this RN visualized steri strips only today during dressing change and patient states they were removed yesterday).
[2022-08-15] MEDS: TOPIRAMATE 25 MG TABLET PO (22:12)
[2022-08-15] MEDS: ATORVASTATIN 20 MG TABLET 10 MG PO (22:12)
[2022-08-16] MEDS: SODIUM CHLORIDE 0.9% FLUSH 10 ML IV ×2 (02:09→08:29)
[2022-08-16 04:00] VITALS: BP 150/79; PULSE 100; RESP 16; TEMP 37.1; O2SAT 97
[2022-08-16] MEDS: PANTOPRAZOLE DR 20 MG TABLET PO (06:04)
[2022-08-16] MEDS: ONDANSETRON 4 MG/2 ML INJ IV (06:04)
[2022-08-16] MEDS: LEVOTHYROXINE 100 MCG TABLET PO (06:09)
[2022-08-16] MEDS: LEVOTHYROXINE 25 MCG TABLET PO (06:09)
[2022-08-16 08:00] VITALS: BP 148/80; PULSE 94; RESP 17; TEMP 36.9; O2SAT 95
[2022-08-16] MEDS: predniSONE 5 MG TABLET PO (08:28)
[2022-08-16] MEDS: CITALOPRAM 10 MG TABLET 20 MG PO (08:28)
[2022-08-16] MEDS: ENOXAPARIN 40 MG/0.4 ML SYRINGE SUBCUT (08:28)
[2022-08-16] MEDS: METOPROLOL ER 25 MG TABLET PO (08:28)
--- NOTE | 2022-08-16 09:01 | CM.DPC ---
Addendum entered by Sonia Sherman R.N. 08/16/22 11:00: [facility] unable to accept. Plan will be back to [facility] today. They have been faxed orders. September at [facility] called back, is working on a 1300 transport, but will call back to confirm. Have updated nurse, Rita. Original Note: DCP Cont: It is noted that [facility] was sent a referral as back up. [facility] did not have beds yesterday to take patient back. Hospitalist will be completing orders, have a message out to Anisha at [facility] for time of tile picker. P: DCP to continue to follow. Plan is for patient to return to [facility], have message out to Anisha at [facility], awaiting orders. Sonia Sherman RN/Chemical Production Technician
--- NOTE | 2022-08-16 09:02 | P.DS_ITS ---
History of Present Illness History of Present Illness Date Patient Seen: 08/11/22 Time Patient Seen: 01:25 Chief complaint: GLF; on thinners Narrative: Christine Burger (Lorraine) is a bashir 76 year-old patient with a history of hypertension, hyperlipidemia, chronic hip pain, autoimmune disease, chronic kidney disease stage 4, hypothyroidism, reflux, prior DVT currently anticoagulated on Coumadin, bilateral lower extremity lymphedema, chronic spondylosis/lumbar stenosis with acute sacral insufficiency fractures bilaterally secondary to pathological fractures from osteoporosis, L2 compression fracture, prior lumbar laminectomy,? right hip arthroplasty, LLE venous insufficiency, and pulmonary fibrosis who was recently hospitalized at [place] following a fall multiple injuries from 07/08 to 07/12/[address] [facility]. Patient apparently fell off the end of her bed earlier today hitting her head and landing on her left side. She presented to the ED tachycardic heart rate 140, febrile fever 101.3, tachypneic respiratory rate of 36 hypertensive urgency 155/110, confused agitated with multiple bruising and Dr. Pablo sutured 3 lacerations, provided 2 L fluid bolus for sepsis and started the patient on Levaquin IV due to allergies to cephalosporins, sulfa and cillins. Unable to obtain accurate ROS due to patient's encephalopathy. On admit patient continues to be confused and slightly agitated, temp 100.2?, BP 171/119, HR 118, R 24, O2 saturation 93% on room air. WBC 18.8, neutrophils 14,900, mono 2100. Lactate 1.8, procalcitonin 0.38. Kidney function is at baseline BUN 27, creatinine 1.7, GFR 31, bili 1.5, alk-phos 159, lipase negative. PT 15.5 INR stable at 1.3 they have been holding patient's Coumadin will continue to do so. Initial troponin 0.064 likely secondary to injury. Patient is COVID positive initially tested positive approximately 10 days ago- patient is asymptomatic, chest x-ray shows low lung volumes crowding of the interstitium-patient has interstitial lung disease. Remainder of respiratory panel is negative. Patient's urine was positive for nitrates trace glucose ketones WBC, bacteria and culture is pending. Head CT was negative for any acute intracranial process, C-spine [id number] degenerative changes. Left forearm and humerus are negative for fracture. EKG patient sinus tachycardia rate of 128 has frequent PACs rhythm that has been mistaken for AFib in the past. Patient is admitted for ground level fall, sepsis, encephalopathy, UTI, COVID, and hypertensive urgency. Discharge Providers Provider Date of admission: 08/11/22 00:56 Discharge Date: 08/16/22 Primary care physician: Jamir Garcia MD Consults: 08/11/22 01:18 Consult to Discharge Planning Routine Comment: needs to return to rehab/SNF Consult to Occupational Therapy Evaluate & Treat Comment: Physician Instructions: Evaluate and treat Consult to Physical Therapy Evaluate & Treat Comment: Physician Instructions: Evaluate and Treat 08/11/22 02:31 Consult to Dietitian, Adult Routine Comment: Reason For Exam: malnutrition, mild Consult to Speech Therapy Evaluate & Treat Comment: possible swallow issues Physician Instructions: Evaluate and treat 08/12/22 04:42 Consult to General Surgery Routine Comment: Consulting Provider: Agustina Hays Reason for consultation: right lower leg wound Has provider been notified: No Discharge provider: Don Flores DO Summary Hospital Course Discharge Diagnosis: 1. Sepsis without septic shock with encephalopathy, acute, present on admission -metabolic secondary to UTI -resulting in hypertensive urgency -continue sepsis rehydration, monitor for shock -continue Levaquin IV due to patient's multiple allergies, finished course -blood and urine cultures -urine culture positive sensitive to Levaquin.? Blood culture negative. -currently all resolved 2. UTI, acute, present on admission -NS at 150 cc/HR overnight -Levaquin 750 IV-pending culture results -urine culture -positive sensitive to Levaquin. -catheter in place -switch to oral Levaquin 750 mg Q 48 hours with last dose on August 22, 2022 3. Ground level fall, acute on chronic, with head injury, frequent falls, present on admission -laceration x2 to the head-sutures to me be removed on Aug 17 2022 -with elevated troponin 0.064-trend x3 likely demand ischemia myocardial injury, troponin normal today. -elevated bili 1.5, alk-phos 159, GGT 65-ordered right upper quadrant ultrasound -ultrasound unremarkable. -Pain management, fall precaution, assess for bleeding, neuro checks -head CT negative, MR ordered to assess for any occult intracranial injuries/infarct -MR normal the brain 4. COVID positive, acute present on admission -initial diagnosis 10 days ago -patient asymptomatic not requiring medical intervention protocols at this time. 5. Hypertensive urgency in the setting of hypertension, essential, acute on chronic, present on admission -reasonable control today, continue to follow to see if needs to be on regular antihypertensive medication.? Due to persistence of elevated blood pressure and tachycardia patient started on metoprolol ER b.i.d. 25 mg -likely secondary to pain/sepsis/UTI -temporary bridge covered: metoprolol 5 mg IV for coverage:? Give for >30min sustained SBP>180,DBP>100,HR>110 (cautious of low heart rate) -has been discontinued 6. History of DVT on chronic anticoagulation, chronic, present on admission -patient's Coumadin has been held due to her frequent falls, patient may not be the best candidate to continue with anticoagulation. 7. Chronic kidney disease stage 4, chronic, with associated hyperlipidemia, mixed, chronic present on admission- stable - BUN 2, creatinine 1.7, glucose 158, GFR 31- Baseline -patient currently is bet ter than typical baseline with creatinine of 1.38 and GFR estimate 39 -trend renal function, avoid nephrotoxic medications -provide Lipitor in place the patient's simvastatin ?8. Autoimmune disease, interstitial lung disease, Microscopic polyangiitis, chronic, present on admission -continue on prednisone 5 mg q.d. 9.?? Malnutrition, mild, acute, present on admission -last BMI 28, current 23.5 -patient's malnutrition places them at high risk for medical and surgical complications in relation to acute illness/chronic illness.? This increases the difficulty in complexity of medical management and increases the chances poor outcomes such as mortality and morbidity as well as impaired wound healing, and immune suppression. -dietary consult ordered to evaluate and implement steps to improve caloric intake and nutrition. 10. Hypothyroidism, acquired, chronic, present on admission -TSH 4.88, therefore home levothyroxine was increased to 112 mcg daily. ? 11. Atypical migraine, chronic, present on admission -continue Topiramate, 12. Depression, chronic, present on admission -continue sertraline 13. Elevated markers of C-reactive protein, ESR now 60, however white blood count now is normal at 9.5 14. Elevated BNP trending downward. Hospital Course: See above problem list. Time Spent with Patient Time spent: Greater than 30 minutes Exam Vital Signs (past 8 hours): - 08/16/22 04:00 Temperature 98.8 F Pulse Rate 100 H Respiratory Rate 16 Blood Pressure 150/79 H Pulse Oximetry 97 Oxygen Delivery Method Room Air Oxygen Flow Rate 0 Narrative Exam Narrative: General:? Frail-appearing, thin pleasant elderly female, in no acute distress. Pleasant. HEENT:? dry mucous membranes, normal sclera with reactive pupils, airway is patent.? Treated laceration left forehead. Neck:? No JVD, supple Respiratory:? Lung sounds are clear with no wheezes or crackles. Cardiac:? rate irregular rhythm without no murmurs, rubs or gallops, currently tachycardic Abdomen:? Soft, nontender, bowel sounds present. Skin:? Warm and dry, multiple bruising present various stages of healing to upper and lower extremities, Neurologic:? Globally weak but otherwise neurologically intact. Extremities:? Diffuse bruising throughout, warm dry, radial & pedal pulses intact,? left arm is severely bruised from the shoulder through the hand,? anterior open wound to left calf healing without signs of infection, lower extremity chronic venous stasis changes, 2+ lower extremity edema significant bruising with a laceration to the lateral right calf sutures in place Psych:? No apparent depression or acute mood change Objective Labs 08/15/22 04:50 08/15/22 04:50 [facility] Medical History Atypical migraine Bilateral lower extremity edema Chicken pox (~1951) Chronic adrenal insufficiency Chronic anticoagulation Chronic back pain (~1964) Chronic diarrhea Chronic kidney disease Fecal incontinence (~2021) Headache (~2021) Hearing loss (~2011) History of DVT (deep vein thrombosis) History of kidney disease (~2002) Hyperlipidemia Hypertension Interstitial lung disease Irritable bowel syndrome (~2012) Measles (~1951) Mixed hyperlipidemia Mumps (~1951) 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 Stage 3b chronic kidney disease (CKD) Uses walker Venous (peripheral) insufficiency Surgical History Anesthesia History of back surgery (~2012) History of throat surgery (~1974) Family History Father Cancer History of heart disease Mother Hypertension Social History household members: spouse Smoking Status: Never smoker alcohol intake: former Discharge Plan Discharge Plan Patient Disposition: SNF Transfer to: [facility] Provider Discharge Comment: Head sutures to be removed on Aug 17 2022 Discharge orders & Medications Prescriptions: New sertraline 100 mg tablet 100 mg PO DAILY Qty: 30 0RF simvastatin 10 mg tablet 10 mg PO BEDTIME Qty: 30 0RF levothyroxine [Synthroid] 112 mcg tablet 112 mcg PO DAILY Qty: 30 0RF Continued cholecalciferol (vitamin D3) 125 mcg (5,000 unit) capsule 125 mcg PO DAILY potassium chloride 20 mEq tablet,ER particles/crystals 20 meq PO DAILY digestive enzymes Capsule 1 cap PO DAILY PRN (Reason: Abdominal Discomfort) Rx Instructions: administer with food; swallow whole; do not crush/chew/dissolve/break/cut methocarbamol 500 mg tablet 500 mg PO BID PRN (Reason: muscle spasm) Qty: 20 0RF lidocaine [Lidoderm] 5 % adhesive patch,medicated 1 patch topical DAILY PRN (Reason: back pain) Qty: 30 0RF Rx Instructions: leave on most painful area for up to 12 hrs calcitonin (salmon) 200 unit/actuation [place],Non-Aerosol 1 spray intranasal DAILY 30 Days Qty: 3.7 0RF loperamide 2 mg Capsule 2 mg PO DAILY PRN (Reason: Diarrhea) 14 Days Qty: 0 0RF oxycodone-acetaminophen 5-325 mg tablet 1 tab PO QID PRN (Reason: Back Pain) 7 Days Qty: 20 0RF polyethylene glycol 3350 17 gram powder in packet 17 gram PO DAILY PRN (Reason: Constipation) ondansetron HCl [Zofran] 4 mg tablet 4 mg PO TID PRN (Reason: nausea) prednisone 5 mg tablet 5 mg PO DAILY acetaminophen [Tylenol Extra Strength] 500 mg tablet 500 mg PO Q6H PRN (Reason: Pain (Scale Score 4-6)) omeprazole 20 mg capsule,delayed release(DR/EC) 20 mg PO DAILY topiramate 25 mg capsule,extended release 24hr 50 mg PO BEDTIME Discontinued levothyroxine 100 mcg capsule 100 mcg PO DAILY Follow up/Referrals: Jamir Garcia MD [Primary Care Provider] - 2 Weeks Visit Report/Discharge Packet Stand Alone Forms: Patient Portal/API Discharge Data Primary Care Provider: Jamir Garcia V
[2022-08-16] MEDS: SENNOSIDES 8.6 MG TABLET PO (09:30)
[2022-08-16 10:03] LABS: COVID19 -Nasal RAPID POSITIVE (Negative)
--- NOTE | 2022-08-16 10:21 | PT-IP ANOTE ---
Pt refused to mobilize this morning, reports just got back to bed from commode and chair, is too tired at the moment, will attempt to see in afternoon if available.
[2022-08-16] MEDS: OXYCODONE IR 5 MG TABLET PO (11:59)
[2022-08-16] MEDS: levoFLOXacin 250 MG TABLET 750 MG PO (11:59)
[2022-08-16] MEDS: HYDROMORPHONE 1 MG INJ IV (12:25)
[2022-08-16] MEDS: ACETAMINOPHEN 325 MG TABLET 650 MG PO (12:26)
--- NOTE | 2022-08-20 09:06 | PC.NURSE ---
08/11/22 late entry: 0921AM and 1503 PM Dilaudin 0.5 mg IV given to patient and while giving care, MAR timed out and didn't save administration.
[2022-08-22 21:39] LABS: T4,Free, Direct Dialysis 1.9 ng/dL (.)
== END 2022-08-16 13:14 | DRG 871 ==
LOC: ED 19:26 → AC 08-11 00:57 → ICU 08-11 01:18 → AC 08-12 21:13
PROVIDERS: Neuromusculoskeletal Medicine, Sports Medicine; Student in an Organized Health Care Education/Training Program; Admitting Provider Nurse Practitioner Family; Emergency Provider Emergency Medicine; PCP Internal Medicine; Referring Provider Emergency Medicine; Visit Provider Nurse Practitioner Family
DX: A41.9 Sepsis, unspecified organism (principal); G93.41 Metabolic encephalopathy; U07.1 COVID-19; N39.0 Urinary tract infection, site not specified; J84.9 Interstitial pulmonary disease, unspecified; M31.7 Microscopic polyangiitis; E44.1 Mild protein-calorie malnutrition; I16.0 Hypertensive urgency; S01.81XA Laceration without foreign body of other part of head, initial encounter; R29.6 Repeated falls; E78.2 Mixed hyperlipidemia; I12.9 Hypertensive chronic kidney disease with stage 1 through stage 4 chronic kidney disease, or unspecified chronic kidney disease; E03.9 Hypothyroidism, unspecified; G43.809 Other migraine, not intractable, without status migrainosus; F32.A Depression, unspecified; B96.89 Other specified bacterial agents as the cause of diseases classified elsewhere; M79.89 Other specified soft tissue disorders; S81.812A Laceration without foreign body, left lower leg, initial encounter; S81.811A Laceration without foreign body, right lower leg, initial encounter; M35.9 Systemic involvement of connective tissue, unspecified; N18.30 Chronic kidney disease, stage 3 unspecified; W18.30XA Fall on same level, unspecified, initial encounter; Z79.52 Long term (current) use of systemic steroids; Z79.01 Long term (current) use of anticoagulants; Z86.718 Personal history of other venous thrombosis and embolism; Z68.23 Body mass index [BMI] 23.0-23.9, adult
CPT/HCPCS: 12002; 12015; 36415; 70450; 70551; 71045; 72125; 73060; 73090; 73502; 74177; 76705; 80053; 81001; 82977; 83605; 83690; 83735; 83880; 84145; 84439; 84443; 84481; 84484; 85025; 85610; 85651; 86140; 86850; 86900; 86901; 87040; 87070; 87077; 87086; 87147; 87186; 87205; 87633; 87635; 87797; 92526; 92610; 93005; 93971; 96365; 96366; 96375; 96376; 97163; 97530; 99232; 99285; C9803; J1170; J1650; J1956; J2060; J2405; Q9967

== ENCOUNTER 2022-08-18 14:40 | Emergency (ER) | payer MEDICARE, OTHER, SELFPAY ==
[2022-08-12 09:34] VITALS: BMI 22.8
[2022-08-18] VITALS (20 sets, daily range): BP systolic 129–195; BP diastolic 65–127; PULSE 59–106; RESP 14–35; TEMP 36.9; O2SAT 96–99; BMI 25.3
--- NOTE | 2022-08-18 15:43 | DI.RAD.S_ITS ---
PROCEDURE: XR CHEST 1V INDICATIONS: chest pain TECHNIQUE: One view of the chest was acquired. COMPARISON: [facility], CT, CT ABDOMEN PELVIS W CON, 08/10/2022, 22:13. [facility], CR, XR CHEST 1V, 08/10/2022, 18:57. FINDINGS: Surgical changes and devices: None. Lungs and pleura: Lungs are clear. No pleural effusions or pneumothorax. Mediastinum: Mediastinal contours appear normal. Heart size is normal. Bones and chest wall: No suspicious bony lesions. Overlying soft tissues appear unremarkable. IMPRESSION: No evidence acute pulmonary process. Dictated by: Brandon Pichardo M.D. on 08/18/2022 at 16:15 Approved by: Brandon Pichardo M.D. on 08/18/2022 at 16:17
[2022-08-18 15:53] LABS: INR 1.1 (0.9-1.3)
[2022-08-18 15:56] LABS: PTT Partial Thromboplastin Tim 26 SECONDS (26-36)
[2022-08-18 15:59] LABS: Alanine Aminotransferase 21 IU/L (<35); Albumin 3.2 g/dL (3.5-5.0); Albumin Globulin Ratio 1.2 (1.0-2.8); Alkaline Phosphatase 102 U/L (38-126); Aspartate Aminotransferase 67 IU/L (14-36); BUN Creatinine Ratio 18.4 (6-22); Bilirubin Total 0.8 mg/dL (0.2-1.3); Blood Urea Nitrogen 27 mg/dL (7-17); Calcium 8.7 mg/dL (8.4-10.2); Carbon Dioxide 23 mmol/L (22-32); Chloride 106 mmol/L (98-107); Creatine Kinase 257 U/L (30-135); Estimated Glomerular Filt Rate 37 mL/min (>60); Globulin 2.7 g/dL (1.7-4.1); Glucose 88 mg/dL (80-110); Lipase 43 U/L (23-300); Magnesium 1.9 mg/dL (1.6-2.3); Potassium 4.2 mmol/L (3.4-5.1); Sodium 137 mmol/L (137-145); Total Protein 5.9 g/dL (6.3-8.2)
[2022-08-18 16:04] LABS: Add Manual Diff / Slide Review NO; Basophils Absolute Auto 0 /uL (0-100); Basophils Percent Auto 0.1 % (0-2); Eosinophils Absolute Auto 0 /uL (0-450); Eosinophils Percent Auto 0.1 % (2-4); Hematocrit 35.2 % (36-46); Hemoglobin 11.5 g/dL (12.0-16.0); Lymphocytes Absolute Auto 2000 /uL (1100-4500); Lymphocytes Percent Auto 15.9 % (25-40); Mean Corpuscular HGB Conc 32.7 % (30-36); Mean Corpuscular Hemoglobin 29.6 PG (26-34); Mean Corpuscular Volume 90.5 fL (80-100); Monocytes Absolute Auto 1100 /uL (0-900); Monocytes Percent Auto 8.4 % (3-14); Neutrophils Absolute Auto 9700 /uL (1500-7000); Neutrophils Percent Auto 75.5 % (50-75); Platelet Count 263 X10^3/uL (150-400); Red Blood Cell Count 3.89 X10^6/uL (4.0-5.2); Red Cell Distribution Width 16.1 % (11.6-14.8); White Blood Cell Count 12.9 X10^3/uL (4.5-11.0)
[2022-08-18 16:13] LABS: HEMOLYSIS 23 (0-50)
[2022-08-18 16:15] LABS: CKMB % Relative Index 10.2 % (1.5-5.0)
--- NOTE | 2022-08-18 16:21 | ED.CHESTPAIN ---
HPI - Chest Pain <Krystin Roto, DO - Last Filed: 08/19/22 19:03> General Chief Complaint: Chest Pain Stated Complaint: Chest pain Time Seen by Provider: 08/18/22 16:21 Source: EMS Mode of arrival: EMS Limitations: no limitations History of Present Illness HPI narrative: This is a 76-year-old female with history of hypertension, dyslipidemia, autoimmune disease, CKD stage 4, hypothyroidism, reflux, prior DVT, bilateral lower extremity lymphedema, chronic spondylosis/lumbar stenosis with acute sacral insufficiency fractures bilaterally secondary to pathologic fracture from osteoporosis, L2 compression fracture, prior lumbar laminectomy, right hip arthroplasty, pulmonary fibrosis who presents with chest pain. Patient states she had chest pain overnight the resolved then returned again this morning she describes it as epigastric radiating to her neck a little bit to her back as well. She denies shortness of breath. She would 1 episode of vomiting this morning but states that that happens occasionally and isn't all that atypical. She denies any nausea or vomiting currently. No diaphoresis. She is had some swelling in her upper extremity after a fall as well as bilateral lower extremities. She denies fevers, chills, cold cough or congestion. She states chest pain has currently resolved. She has had blood clots in the past she states she does not believe she is anticoagulated currently. She states she is had a lot of falls and her and family at bedside note that it was probably stopped secondary to this she is had multiple injuries because of falls. Patient is open to possible intervention such as heart catheterization if it was offered. She received aspirin 325 mg in the field, nitro sublingual which was not helpful at that time but chest pain had since resolved. She denies any prior cardiac stents or interventions. Family at bedside states she is been told that she does not have AFib but extra beats that look like AFib. No tobacco, rare alcohol, no illicit. Related Data Home Medications Medication Instructions Recorded Confirmed acetaminophen 500 mg tablet 500 mg PO Q6H PRN Pain (Scale 10/09/17 08/11/22 (Tylenol Extra Strength) Score 4-6) omeprazole 20 mg capsule,delayed 20 mg PO DAILY 10/09/17 08/11/22 release ondansetron HCl 4 mg tablet 4 mg PO TID PRN nausea 10/09/17 08/11/22 (Zofran) polyethylene glycol 3350 17 gram 17 gram PO DAILY PRN Constipation 10/09/17 08/11/22 oral powder packet prednisone 5 mg tablet 5 mg PO DAILY 10/09/17 08/11/22 topiramate 25 mg capsule,extended 50 mg PO BEDTIME 10/09/17 08/11/22 release 24 hr digestive enzymes 1 cap PO DAILY PRN Abdominal 06/10/22 08/11/22 Discomfort potassium chloride 20 mEq 20 meq PO DAILY 06/10/22 08/11/22 tablet,extended release(part/cryst) cholecalciferol (vitamin D3) 125 125 mcg PO DAILY 06/15/22 08/11/22 mcg (5,000 unit) capsule Previous Rx's Medication Instructions Recorded lidocaine 5 % topical patch 1 patch topical DAILY PRN back 07/08/22 (Lidoderm) pain #30 ea methocarbamol 500 mg tablet 500 mg PO BID PRN muscle spasm #20 07/08/22 tabs loperamide 2 mg capsule 2 mg PO DAILY PRN Diarrhea 14 days 07/12/22 #0 caps levofloxacin 750 mg tablet 750 mg PO Q48H #3 tabs 08/16/22 levothyroxine 112 mcg tablet 112 mcg PO DAILY #30 tabs 08/16/22 (Synthroid) oxycodone-acetaminophen 5 mg-325 1 tab PO QID PRN Back Pain 7 days 08/16/22 mg tablet #20 tabs sertraline 100 mg tablet 100 mg PO DAILY #30 tabs 08/16/22 simvastatin 10 mg tablet 10 mg PO BEDTIME #30 tabs 08/16/22 Allergies Allergy/AdvReac Type Severity Reaction Status Date / Time amoxicillin [AMOXICILLIN] Allergy Severe rash and Verified 06/10/22 09:13 diarrhea oxybutynin Allergy Severe tongue Verified 06/10/22 09:13 swells Sulfa (Sulfonamide Allergy Severe fever and Verified 06/10/22 09:13 Antibiotics) rash [SULFA (SULFONAMIDE ANTIBIOTICS)] NSAIDS (Non-Steroidal Allergy Unknown Verified 06/10/22 09:13 Anti-Inflamma [NSAIDS (NON-STEROIDAL ANTI-INFLAMMA] cephalexin Allergy rash Verified 06/10/22 09:13 codeine [CODEINE] AdvReac Mild headache Verified 06/10/22 09:13 duloxetine [From CYMBALTA] AdvReac Mild vomiting Verified 06/10/22 09:13 morphine [MORPHINE] AdvReac Mild vomiting Verified 06/10/22 09:13 nitrofurantoin AdvReac Mild vomiting Verified 06/10/22 09:13 [From MACROBID] carisoprodol AdvReac Verified 06/10/22 09:13 piroxicam [From Feldene] AdvReac Verified 06/10/22 09:13 tolterodine AdvReac Verified 06/10/22 09:13 <Magan Garcia MD - Last Filed: 08/29/22 09:09> History of Present Illness HPI narrative: This is a 76-year-old female with history of hypertension, dyslipidemia, autoimmune disease, CKD stage 4, hypothyroidism, reflux, prior DVT, bilateral lower extremity lymphedema, chronic spondylosis/lumbar stenosis with acute sacral insufficiency fractures bilaterally secondary to pathologic fracture from osteoporosis, L2 compression fracture, prior lumbar laminectomy, right hip arthroplasty, pulmonary fibrosis who presents with chest pain. Patient states she had chest pain overnight the resolved then returned again this morning she describes it as epigastric radiating to her neck a little bit to her back as well. She denies shortness of breath. She would 1 episode of vomiting this morning but states that that happens occasionally and isn't all that atypical. She denies any nausea or vomiting currently. No diaphoresis. She is had some swelling in her upper extremity after a fall as well as bilateral lower extremities. She denies fevers, chills, cold cough or congestion. She states chest pain has currently resolved. She has had blood clots in the past she states she does not believe she is anticoagulated currently. She states she is had a lot of falls and her and family at bedside note that it was probably stopped secondary to this she is had multiple injuries because of falls. Patient is open to possible intervention such as heart catheterization if it was offered. She received aspirin 325 mg in the field, nitro sublingual which was not helpful at that time but chest pain had since resolved. She denies any prior cardiac stents or interventions. Family at bedside states she is been told that she does not have AFib but extra beats that look like AFib. No tobacco, rare alcohol, no illicit. Review of Systems <Krystin Root DO - Last Filed: 08/19/22 19:03> Review of Systems ROS Unobtainable: All systems reviewed & are unremarkable except as noted in HPI and below Patient History <Krystin Root DO - Last Filed: 08/19/22 19:03> Medical History Atypical migraine Bilateral lower extremity edema Chicken pox (~1951) Chronic adrenal insufficiency Chronic anticoagulation Chronic back pain (~1964) Chronic diarrhea Chronic kidney disease Fecal incontinence (~2021) Headache (~2021) Hearing loss (~2011) History of DVT (deep vein thrombosis) History of kidney disease (~2002) Hyperlipidemia Hypertension Interstitial lung disease Irritable bowel syndrome (~2012) Measles (~1951) Mixed hyperlipidemia Mumps (~1951) 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 Stage 3b chronic kidney disease (CKD) Uses walker Venous (peripheral) insufficiency Surgical History Anesthesia History of back surgery (~2012) History of throat surgery (~1974) Family History Father Cancer History of heart disease Mother Hypertension Social History household members: spouse Smoking Status: Never smoker alcohol intake: former Smoking Status: Never smoker alcohol intake frequency: 0-2 drinks per day Substance Use Type: does not use Exam <Krystin Root DO - Last Filed: 08/19/22 19:03> Narrative Exam Narrative: GENERAL: Alert and oriented x three, female in mild distress. HEENT: Head normocephalic, atraumatic, EOMI, pupils reactive, face symmetric, moist mucous membranes NECK: Supple, full range of motion CARDIOVASCULAR: Regular rate and rhythm without murmurs, rubs or gallops. Mild JVD. Bilateral lower extremity swelling 1+. RESPIRATORY: Breath sounds equal bilaterally, no wheezes rales or rhonchi. No tachypnea or accessory muscle use. ABDOMEN: Soft, nontender. Normoactive bowel sounds all 4 quadrants. No guarding or rebound, rigidity, no mass, no bruit or pulsatile mass. : No CVA tenderness EXTREMITIES: Normal range of motion, no clubbing or edema. Neurovascularly intact NEUROLOGICAL: Cranial nerves II through XII grossly intact. Moving all extremities SKIN: Warm, dry, no petechiae, no rashes or lesions. Initial Vital Signs Initial Vital Signs: Vital Signs Temperature 98.4 F 08/18/22 14:46 Pulse Rate 59 L 08/18/22 14:46 Respiratory Rate 14 08/18/22 14:46 Blood Pressure 149/76 H 08/18/22 14:46 Pulse Oximetry 97 08/18/22 14:46 Oxygen Delivery Method Room Air 08/18/22 14:46 <Magan Garcia MD - Last Filed: 08/29/22 09:09> Initial Vital Signs Initial Vital Signs: Vital Signs Temperature 98.4 F 08/18/22 14:46 Pulse Rate 59 L 08/18/22 14:46 Respiratory Rate 14 08/18/22 14:46 Blood Pressure 149/76 H 08/18/22 14:46 Pulse Oximetry 97 08/18/22 14:46 Oxygen Delivery Method Room Air 08/18/22 14:46 Course <Krystin Root DO - Last Filed: 08/19/22 19:03> Orders Ordered: Discontinued Medications Aspirin (Aspirin 81 Mg Chew Tab) 324 mg PO NOW ONE Stop: 08/18/22 16:25 Last Admin: 08/18/22 16:46 Dose: Not Given Documented By: RITESH Atorvastatin Calcium (Atorvastatin 20 Mg Tablet) 80 mg PO NOW ONE Stop: 08/18/22 18:23 Last Admin: 08/18/22 18:52 Dose: 80 mg Documented By: RITESH Heparin Sodium (Porcine) (Heparin 5,000 Unit/Ml Vial) 4,000 unit IV NOW ONE Stop: 08/18/22 17:51 Last Admin: 08/18/22 18:02 Dose: 4,000 unit Documented By: RITESH Heparin Sodium/Dextrose (Heparin Drip) 25,000 unit in 500 mls @ 15.567 mls/hr IV CONT BRANDON; Protocol Last Admin: 08/18/22 18:06 Dose: 12 units/kg/hr, 15.567 mls/hr Documented By: RITESH Co-signed By: ERNESTO Oxycodone/Acetaminophen (Oxycodone/Acetaminophen 5/325 Tablet) 1 tab PO NOW ONE Stop: 08/18/22 16:57 Last Admin: 08/18/22 17:09 Dose: 1 tab Documented By: RITESH Vital Signs Vital signs: Vital Signs - 8 hr 08/18/22 14:46 08/18/22 16:15 08/18/22 17:15 Temperature 98.4 F Pulse Rate 59 L 106 H 104 H Respiratory Rate 14 22 25 H Blood Pressure 149/76 H 150/65 H 129/70 Pulse Oximetry 97 98 99 Oxygen Delivery Method Room Air Room Air 08/18/22 17:30 08/18/22 17:58 08/18/22 18:00 Temperature Pulse Rate 102 H 100 H 105 H Respiratory Rate 22 22 30 H Blood Pressure 141/90 H Pulse Oximetry 97 97 97 Oxygen Delivery Method Room Air 08/18/22 18:05 08/18/22 18:05 08/18/22 18:30 Temperature Pulse Rate 100 H 101 H Respiratory Rate 34 H 19 Blood Pressure 180/98 H Pulse Oximetry 98 98 Oxygen Delivery Method 08/18/22 18:31 08/18/22 18:31 08/18/22 19:00 Temperature Pulse Rate 102 H Respiratory Rate 25 H Blood Pressure 159/127 H 195/96 H Pulse Oximetry 97 Oxygen Delivery Method 08/18/22 19:00 08/18/22 19:30 08/18/22 19:33 Temperature Pulse Rate 97 H 102 H Respiratory Rate 22 31 H Blood Pressure 180/93 H Pulse Oximetry 98 99 Oxygen Delivery Method 08/18/22 19:33 08/18/22 20:00 Temperature Pulse Rate 100 H 101 H Respiratory Rate 35 H 29 H Blood Pressure Pulse Oximetry 98 97 Oxygen Delivery Method <Magan Garcia MD - Last Filed: 08/29/22 09:09> Orders Ordered: Discontinued Medications Aspirin (Aspirin 81 Mg Chew Tab) 324 mg PO NOW ONE Stop: 08/18/22 16:25 Last Admin: 08/18/22 16:46 Dose: Not Given Documented By: RITESH Atorvastatin Calcium (Atorvastatin 20 Mg Tablet) 80 mg PO NOW ONE Stop: 08/18/22 18:23 Last Admin: 08/18/22 18:52 Dose: 80 mg Documented By: RITESH Heparin Sodium (Porcine) (Heparin 5,000 Unit/Ml Vial) 4,000 unit IV NOW ONE Stop: 08/18/22 17:51 Last Admin: 08/18/22 18:02 Dose: 4,000 unit Documented By: RITESH Heparin Sodium/Dextrose (Heparin Drip) 25,000 unit in 500 mls @ 15.567 mls/hr IV CONT BRANDON; Protocol Last Admin: 08/18/22 18:06 Dose: 12 units/kg/hr, 15.567 mls/hr Documented By: RITESH Co-signed By: ERNESTO Oxycodone/Acetaminophen (Oxycodone/Acetaminophen 5/325 Tablet) 1 tab PO NOW ONE Stop: 08/18/22 16:57 Last Admin: 08/18/22 17:09 Dose: 1 tab Documented By: RITESH Vital Signs Vital signs: Vital Signs - 8 hr 08/18/22 14:46 08/18/22 16:15 08/18/22 17:15 Temperature 98.4 F Pulse Rate 59 L 106 H 104 H Respiratory Rate 14 22 25 H Blood Pressure 149/76 H 150/65 H 129/70 Pulse Oximetry 97 98 99 Oxygen Delivery Method Room Air Room Air 08/18/22 17:30 08/18/22 17:58 08/18/22 18:00 Temperature Pulse Rate 102 H 100 H 105 H Respiratory Rate 22 22 30 H Blood Pressure 141/90 H Pulse Oximetry 97 97 97 Oxygen Delivery Method Room Air 08/18/22 18:05 08/18/22 18:05 08/18/22 18:30 Temperature Pulse Rate 100 H 101 H Respiratory Rate 34 H 19 Blood Pressure 180/98 H Pulse Oximetry 98 98 Oxygen Delivery Method 08/18/22 18:31 08/18/22 18:31 08/18/22 19:00 Temperature Pulse Rate 102 H Respiratory Rate 25 H Blood Pressure 159/127 H 195/96 H Pulse Oximetry 97 Oxygen Delivery Method 08/18/22 19:00 08/18/22 19:30 08/18/22 19:33 Temperature Pulse Rate 97 H 102 H Respiratory Rate 22 31 H Blood Pressure 180/93 H Pulse Oximetry 98 99 Oxygen Delivery Method 08/18/22 19:33 08/18/22 20:00 Temperature Pulse Rate 100 H 101 H Respiratory Rate 35 H 29 H Blood Pressure Pulse Oximetry 98 97 Oxygen Delivery Method MDM - Chest Pain <Krystin Root DO - Last Filed: 08/19/22 19:03> Lab Data 08/18/22 15:10 08/18/22 15:10 Labs: Lab Results 08/18/22 08/18/22 08/18/22 Range/Units 15:10 15:10 15:10 WBC 12.9 H (4.5-11.0) X10^3/uL RBC 3.89 L (4.0-5.2) X10^6/uL Hgb 11.5 L (12.0-16.0) g/dL Hct 35.2 L (36-46) % MCV 90.5 (80-100) fL MCH 29.6 (26-34) PG MCHC 32.7 (30-36) % RDW 16.1 H (11.6-14.8) % Plt Count 263 (150-400) X10^3/uL Neut % (Auto) 75.5 H (50-75) % Lymph % (Auto) 15.9 L (25-40) % [place] % (Auto) 8.4 (3-14) % Eos % (Auto) 0.1 L (2-4) % Baso % (Auto) 0.1 (0-2) % Neut # (Auto) 9700 H (7887-7436) /uL Lymph # (Auto) 2000 (3974-0378) /uL [place] # (Auto) 1100 H (0-900) /uL Eos # (Auto) 0 (0-450) /uL Baso # (Auto) 0 (0-100) /uL PT 13.0 H (10.1-12.7) SECONDS INR 1.1 (0.9-1.3) APTT 26 (26-36) SECONDS Sodium 137 (137-145) mmol/L Potassium 4.2 (3.4-5.1) mmol/L Chloride 106 (98-107) mmol/L Carbon Dioxide 23 (22-32) mmol/L BUN 27 H (7-17) mg/dL Creatinine 1.47 H (0.52-1.04) mg/dL Estimated GFR 37 L (>60) mL/min BUN/Creatinine Ratio 18.4 (6-22) Glucose 88 (80-110) mg/dL Calcium 8.7 (8.4-10.2) mg/dL Magnesium 1.9 (1.6-2.3) mg/dL Total Bilirubin 0.8 (0.2-1.3) mg/dL AST 67 H (14-36) IU/L ALT 21 (<35) IU/L Alkaline Phosphatase 102 (38-126) U/L Total Creatine Kinase 257 H (30-135) U/L CK-MB (CK-2) 26.10 H (<2.37) ng/mL CK-MB (CK-2) Rel Index 10.2 H* (1.5-5.0) % Troponin I 4.740 H* (0.01-0.034) ng/mL NT-Pro-B Natriuret Pep (<450) pg/mL Total Protein 5.9 L (6.3-8.2) g/dL Albumin 3.2 L (3.5-5.0) g/dL Globulin 2.7 (1.7-4.1) g/dL Albumin/Globulin Ratio 1.2 (1.0-2.8) Lipase 43 D (23-300) U/L SARS-CoV-2 (PCR) (Negative) 08/18/22 08/18/22 08/18/22 Range/Units 15:10 16:45 17:18 WBC (4.5-11.0) X10^3/uL RBC (4.0-5.2) X10^6/uL Hgb (12.0-16.0) g/dL Hct (36-46) % MCV (80-100) fL MCH (26-34) PG MCHC (30-36) % RDW (11.6-14.8) % Plt Count (150-400) X10^3/uL Neut % (Auto) (50-75) % Lymph % (Auto) (25-40) % [place] % (Auto) (3-14) % Eos % (Auto) (2-4) % Baso % (Auto) (0-2) % Neut # (Auto) (9823-7808) /uL Lymph # (Auto) (0795-9700) /uL [place] # (Auto) (0-900) /uL Eos # (Auto) (0-450) /uL Baso # (Auto) (0-100) /uL PT (10.1-12.7) SECONDS INR (0.9-1.3) APTT (26-36) SECONDS Sodium (137-145) mmol/L Potassium (3.4-5.1) mmol/L Chloride (98-107) mmol/L Carbon Dioxide (22-32) mmol/L BUN (7-17) mg/dL Creatinine (0.52-1.04) mg/dL Estimated GFR (>60) mL/min BUN/Creatinine Ratio (6-22) Glucose (80-110) mg/dL Calcium (8.4-10.2) mg/dL Magnesium (1.6-2.3) mg/dL Total Bilirubin (0.2-1.3) mg/dL AST (14-36) IU/L ALT (<35) IU/L Alkaline Phosphatase (38-126) U/L Total Creatine Kinase (30-135) U/L CK-MB (CK-2) (<2.37) ng/mL CK-MB (CK-2) Rel Index (1.5-5.0) % Troponin I 10.300 H* (0.01-0.034) ng/mL NT-Pro-B Natriuret Pep 91742 H (<450) pg/mL Total Protein (6.3-8.2) g/dL Albumin (3.5-5.0) g/dL Globulin (1.7-4.1) g/dL Albumin/Globulin Ratio (1.0-2.8) Lipase (23-300) U/L SARS-CoV-2 (PCR) Positive H (Negative) Imaging Data Chest x-ray: Radiologist's Impression: [address] [address] XRay Report Signed Patient: Christine Burger MR#: [id number] : 1945 Acct:[id number] Age/Sex: 76 / F Date of Service: 08/18/22 Loc: ED Accession Number: [id number] ?? Procedure: XR chest 1V Ordering Provider: Krystin Root D.O. PROCEDURE:? XR CHEST 1V ? INDICATIONS:? chest pain ? TECHNIQUE:? One view of the chest was acquired.? ? COMPARISON:? [facility], CT, CT ABDOMEN PELVIS W CON, 08/10/2022, 22:13.? [facility], CR, XR CHEST 1V, 08/10/2022, 18:57. ? FINDINGS:? ? Surgical changes and devices:? None.? ? Lungs and pleura:? Lungs are clear.? No pleural effusions or pneumothorax.? ? Mediastinum:? Mediastinal contours appear normal.? Heart size is normal.? ? Bones and chest wall:? No suspicious bony lesions.? Overlying soft tissues appear unremarkable.? ? IMPRESSION:? No evidence acute pulmonary process. ? ? ? Dictated by: Brandon Pichardo M.D. on 08/18/2022 at 16:15 ? ? Approved by: Brandon Pichardo M.D. on 08/18/2022 at 16:17?? ECG Data Attestation: I personally reviewed and interpreted this ECG as follows: Interpretation: AFib patient does appear to have a P wave but is irregular so maybe frequent atrial contractions but appears to be in atrial fib rhythm. Rate of 109 QRS of 120 QTC of 506. Patient has prior from 08/10/2022 which appears similar. No dynamic or new ST changes. Sinus tachycardia rate of 105 MD 168 QRS of 124 QTC 520. No acute ST elevation depression. Patient does appear to have P waves with her QRS complexes but is irregular as well. No acute dynamic changes appreciated. MDM Narrative Medical decision making narrative: This is a 76-year-old female with complaint of chest pain that was overnight into this morning which has since resolved. Patient's CBC is negative, CMP shows a creatinine of 1.47 appears consistent with baseline, normal electrolytes, troponin is 4.74, [place] [address] up from prior on 08/15/22 at 9690 Repeat troponin is 10.3. No new or dynamic changes on repeat EKG. Patient's INR is 1.2 according to family they believes she did have her anticoagulation. Because of falls and fall risk. Patient has had prior DVT so CT angio was obtained and she is had recent COVID infection as well. Chest x-ray showed no acute change. CT angio shows no PE, moderate cardiomegaly with bilateral lower lung interstitial edema and small bilateral pleural effusions, multilevel compression fractures throughout the thoracic and lumbar spine and decompressed IVC suggesting low intravascular volume. Patient started on heparin for NSTEMI. Patient receive aspirin 325 mg in the field, nitro sublingual x1. She is not had any recurrence of chest pain so nitro drip was not started. Discussed with Dr. Hooper from Cardiology patient does not appear acutely fluid overloaded at the moment so held off on Lasix or further diuresis. But noted trending upwards troponin from 4.7-10.3. Patient states no chest pain currently. He is open to seeing patient over there and recommends transfer. Call to [facility] for bed availability. Patient signed out to Dr. Garcia while awaiting hospitalist callback from [facility]. 7:[address] root, she has spoke with the stock handler floorperson [facility], hospitalist needs admit patient. Awaiting for call back, heparin and aspirin has been started. Patient has nitro glycerin 8:35 p.m., Radha: I spoke with Dr. Luna, hospitalist at [facility]. He will accept patient. <Magan Garcia MD - Last Filed: 08/29/22 09:09> Lab Data Labs: Lab Results 08/18/22 08/18/22 08/18/22 Range/Units 15:10 15:10 15:10 WBC 12.9 H (4.5-11.0) X10^3/uL RBC 3.89 L (4.0-5.2) X10^6/uL Hgb 11.5 L (12.0-16.0) g/dL Hct 35.2 L (36-46) % MCV 90.5 (80-100) fL MCH 29.6 (26-34) PG MCHC 32.7 (30-36) % RDW 16.1 H (11.6-14.8) % Plt Count 263 (150-400) X10^3/uL Neut % (Auto) 75.5 H (50-75) % Lymph % (Auto) 15.9 L (25-40) % [place] % (Auto) 8.4 (3-14) % Eos % (Auto) 0.1 L (2-4) % Baso % (Auto) 0.1 (0-2) % Neut # (Auto) 9700 H (3944-1013) /uL Lymph # (Auto) 2000 (1991-9994) /uL [place] # (Auto) 1100 H (0-900) /uL Eos # (Auto) 0 (0-450) /uL Baso # (Auto) 0 (0-100) /uL PT 13.0 H (10.1-12.7) SECONDS INR 1.1 (0.9-1.3) APTT 26 (26-36) SECONDS Sodium 137 (137-145) mmol/L Potassium 4.2 (3.4-5.1) mmol/L Chloride 106 (98-107) mmol/L Carbon Dioxide 23 (22-32) mmol/L BUN 27 H (7-17) mg/dL Creatinine 1.47 H (0.52-1.04) mg/dL Estimated GFR 37 L (>60) mL/min BUN/Creatinine Ratio 18.4 (6-22) Glucose 88 (80-110) mg/dL Calcium 8.7 (8.4-10.2) mg/dL Magnesium 1.9 (1.6-2.3) mg/dL Total Bilirubin 0.8 (0.2-1.3) mg/dL AST 67 H (14-36) IU/L ALT 21 (<35) IU/L Alkaline Phosphatase 102 (38-126) U/L Total Creatine Kinase 257 H (30-135) U/L CK-MB (CK-2) 26.10 H (<2.37) ng/mL CK-MB (CK-2) Rel Index 10.2 H* (1.5-5.0) % Troponin I 4.740 H* (0.01-0.034) ng/mL NT-Pro-B Natriuret Pep (<450) pg/mL Total Protein 5.9 L (6.3-8.2) g/dL Albumin 3.2 L (3.5-5.0) g/dL Globulin 2.7 (1.7-4.1) g/dL Albumin/Globulin Ratio 1.2 (1.0-2.8) Lipase 43 D (23-300) U/L SARS-CoV-2 (PCR) (Negative) 08/18/22 08/18/22 08/18/22 Range/Units 15:10 16:45 17:18 WBC (4.5-11.0) X10^3/uL RBC (4.0-5.2) X10^6/uL Hgb (12.0-16.0) g/dL Hct (36-46) % MCV (80-100) fL MCH (26-34) PG MCHC (30-36) % RDW (11.6-14.8) % Plt Count (150-400) X10^3/uL Neut % (Auto) (50-75) % Lymph % (Auto) (25-40) % [place] % (Auto) (3-14) % Eos % (Auto) (2-4) % Baso % (Auto) (0-2) % Neut # (Auto) (9198-2322) /uL Lymph # (Auto) (7208-0479) /uL [place] # (Auto) (0-900) /uL Eos # (Auto) (0-450) /uL Baso # (Auto) (0-100) /uL PT (10.1-12.7) SECONDS INR (0.9-1.3) APTT (26-36) SECONDS Sodium (137-145) mmol/L Potassium (3.4-5.1) mmol/L Chloride (98-107) mmol/L Carbon Dioxide (22-32) mmol/L BUN (7-17) mg/dL Creatinine (0.52-1.04) mg/dL Estimated GFR (>60) mL/min BUN/Creatinine Ratio (6-22) Glucose (80-110) mg/dL Calcium (8.4-10.2) mg/dL Magnesium (1.6-2.3) mg/dL Total Bilirubin (0.2-1.3) mg/dL AST (14-36) IU/L ALT (<35) IU/L Alkaline Phosphatase (38-126) U/L Total Creatine Kinase (30-135) U/L CK-MB (CK-2) (<2.37) ng/mL CK-MB (CK-2) Rel Index (1.5-5.0) % Troponin I 10.300 H* (0.01-0.034) ng/mL NT-Pro-B Natriuret Pep 18478 H (<450) pg/mL Total Protein (6.3-8.2) g/dL Albumin (3.5-5.0) g/dL Globulin (1.7-4.1) g/dL Albumin/Globulin Ratio (1.0-2.8) Lipase (23-300) U/L SARS-CoV-2 (PCR) Positive H (Negative) MDM Narrative Medical decision making narrative: This is a 76-year-old female with complaint of chest pain that was overnight into this morning which has since resolved. Patient's CBC is negative, CMP shows a creatinine of 1.47 appears consistent with baseline, normal electrolytes, troponin is 4.74, [place] [address] up from prior on 08/15/22 at 9690 Repeat troponin is 10.3. No new or dynamic changes on repeat EKG. Patient's INR is 1.2 according to family they believes she did have her anticoagulation. Because of falls and fall risk. Patient has had prior DVT so CT angio was obtained and she is had recent COVID infection as well. Chest x-ray showed no acute change. CT angio shows no PE, moderate cardiomegaly with bilateral lower lung interstitial edema and small bilateral pleural effusions, multilevel compression fractures throughout the thoracic and lumbar spine and decompressed IVC suggesting low intravascular volume. Patient started on heparin for NSTEMI. Patient receive aspirin 325 mg in the field, nitro sublingual x1. She is not had any recurrence of chest pain so nitro drip was not started. Discussed with Dr. Martini from Cardiology patient does not appear acutely fluid overloaded at the moment so held off on Lasix or further diuresis. But noted trending upwards troponin from 4.7-10.3. Patient states no chest pain currently. He is open to seeing patient over there and recommends transfer. Call to [facility] for bed availability. 7:[address] roto, she has spoke with the stock handler floorperson [facility], hospitalist needs admit patient. Awaiting for call back, heparin and aspirin has been started. Patient has nitro glycerin 8:35 p.m., Radha: I spoke with Dr. Luna, hospitalist at [facility]. He will accept patient. <Magan Garcia MD - Last Filed: 08/29/22 09:09> Critical Care Time Attestation: Critical Care Time 35 minutes: Critical care time is separate from other billable procedures. This critical care time includes consultation with family and other consulting doctors, review of records, and interpretation of data from labs, EKGs, imaging, etc. Discharge Plan Departure Patient Disposition: [facility] Clinical Impression: Non-ST elevation SD (NSTEMI) Prescriptions: No Action cholecalciferol (vitamin D3) 125 mcg (5,000 unit) capsule 125 mcg PO DAILY potassium chloride 20 mEq tablet,ER particles/crystals 20 meq PO DAILY digestive enzymes Capsule 1 cap PO DAILY PRN (Reason: Abdominal Discomfort) Rx Instructions: administer with food; swallow whole; do not crush/chew/dissolve/break/cut methocarbamol 500 mg tablet 500 mg PO BID PRN (Reason: muscle spasm) Qty: 20 0RF lidocaine [Lidoderm] 5 % adhesive patch,medicated 1 patch topical DAILY PRN (Reason: back pain) Qty: 30 0RF Rx Instructions: leave on most painful area for up to 12 hrs loperamide 2 mg Capsule 2 mg PO DAILY PRN (Reason: Diarrhea) 14 Days Qty: 0 0RF sertraline 100 mg tablet 100 mg PO DAILY Qty: 30 0RF simvastatin 10 mg tablet 10 mg PO BEDTIME Qty: 30 0RF oxycodone-acetaminophen 5-325 mg tablet 1 tab PO QID PRN (Reason: Back Pain) 7 Days Qty: 20 0RF levothyroxine [Synthroid] 112 mcg tablet 112 mcg PO DAILY Qty: 30 0RF levofloxacin 750 mg tablet 750 mg PO Q48H Qty: 3 0RF Rx Instructions: start on 08/18 polyethylene glycol 3350 17 gram powder in packet 17 gram PO DAILY PRN (Reason: Constipation) ondansetron HCl [Zofran] 4 mg tablet 4 mg PO TID PRN (Reason: nausea) prednisone 5 mg tablet 5 mg PO DAILY acetaminophen [Tylenol Extra Strength] 500 mg tablet 500 mg PO Q6H PRN (Reason: Pain (Scale Score 4-6)) omeprazole 20 mg capsule,delayed release(DR/EC) 20 mg PO DAILY topiramate 25 mg capsule,extended release 24hr 50 mg PO BEDTIME Referrals: Jamir Garcia MD [Primary Care Provider] -
--- NOTE | 2022-08-18 16:41 | DI.CT.S_ITS ---
PROCEDURE: CT ANGIO CHEST PE PROTOCOL INDICATIONS: chest pain, +trop, hx dvts off thinners TECHNIQUE: After the administration of intravenous contrast, 2 mm thick sections acquired from the pulmonary apices to the posterior costophrenic angles. 3-dimensional maximum intensity projection (MIP) coronal and sagittal reformats were then acquired through the thorax. For radiation dose reduction, the following was used: automated exposure control, adjustment of mA and/or kV according to patient size. COMPARISON: None. FINDINGS: Image quality: Excellent. Pulmonary arteries: Pulmonary arteries are normal in size, and demonstrate no intraluminal filling defects to suggest central pulmonary embolism. Lungs and pleura: Diffuse thickening of the interstitial markings in the lower lungs bilaterally. There are small bilateral pleural effusions. There is thickening of the posterior pleural surface bilaterally. Bibasilar calcifications. Central and peripheral airways are patent. Mediastinum: The heart is moderately enlarged and there is trace pericardial fluid. The thoracic aorta is normal in caliber with minor arch calcification. Mild coronary artery calcification. No mediastinal or hilar adenopathy. Great vessels have a normal appearance. No anterior or posterior mediastinal mass. Normal esophagus without hiatal hernia. Bones and chest wall: No suspicious bony lesions. There is a severe, chronic appearing compression fracture T6, and [id number] multilevel compression fractures of T4, T5, T7, T8, T9, T11, T12, L1 and L2. Thyroid gland is diminutive with a single punctate left lobe calcification.. No axillary or supraclavicular adenopathy. Abdomen: The upper abdomen demonstrates cholecystectomy changes and prominent extrahepatic biliary dilatation. There is fatty replacement of the pancreas and diffusely decompressed IVC suggesting low volume state. The liver margin is somewhat irregular. IMPRESSION: 1. No pulmonary embolus. 2. Moderate cardiomegaly with findings suggesting bilateral lower lung interstitial edema and small bilateral pleural effusions. 3. Multilevel compression fractures throughout the thoracic and visible lumbar spine. 4. Decompressed IVC suggesting low intravascular volume. Correlate clinically. Dictated by: Suha Tiwari M.D. on 08/18/2022 at 17:15 Approved by: Suha Tiwari M.D. on 08/18/2022 at 17:24
[2022-08-18 16:43] LABS: NT-proBNP (BNP-Adult 18+) 14500 pg/mL (<450)
[2022-08-18] MEDS: OXYCODONE/ACETAMINOPHEN 5/325 TABLET 1 TAB PO (17:09)
[2022-08-18] MEDS: HEPARIN 5,000 UNIT/ML VIAL 4000 UNIT IV (18:02)
[2022-08-18] MEDS: HEPARIN DRIP 25,000 UNIT/500 ML IV.SOLN 15.567 UNIT IV (18:06)
[2022-08-18] MEDS: ATORVASTATIN 20 MG TABLET 80 MG PO (18:52)
[2022-08-18 20:16] LABS: COVID19 -Nasal RAPID POSITIVE (Negative)
--- NOTE | 2022-09-21 13:30 | PC.NURSE ---
Late entry, Pt was transferred with heparin running as ordered. Pt left at 2224 on 08/18.
== END 2022-08-18 22:24 | disposition short-term general hospital (02) ==
PROVIDERS: Emergency Medicine; Emergency Provider Emergency Medicine; PCP Internal Medicine
DX: I21.4 Non-ST elevation (NSTEMI) myocardial infarction (principal); R07.9 Chest pain, unspecified; U07.1 COVID-19; Z79.899 Other long term (current) drug therapy
CPT/HCPCS: 36415; 71045; 71275; 80053; 82550; 82553; 83690; 83735; 83880; 84484; 85025; 85610; 85730; 87635; 93005; 96365; 96366; 96375; 99284; C9803; J1644

== ENCOUNTER → 2022-08-25 14:52 | Outpatient (ROUT) | payer MEDICARE, OTHER, SELFPAY ==
[2022-08-12 09:34] VITALS: BMI 22.8
[2022-08-25 15:01] LABS: Appearance Urine UA CLEAR; Bilirubin Urine UA NEGATIVE (NEGATIVE); Color Urine UA YELLOW; Glucose Urine UA 1+ g/dL (Negative); Ketones Urine UA NEGATIVE (NEGATIVE); Leukocyte Esterase Urine UA NEGATIVE (NEGATIVE); Nitrite Urine UA POSITIVE (Negative); Occult Blood Urine UA NEGATIVE (Negative); Protein Urine UA NEGATIVE (Negative); Urobilinogen Urine UA 0.2 E.U./dL (0.2)
[2022-08-25 15:10] LABS: pH Urine UA 5.5 (4.5-8.0)
[2022-08-25 15:11] LABS: Amorphous Sediment Urine 1+; Bacteria Urine Moderate (10-30); Culture Indicated Urine Specimen Cultured; RBC Urine None Seen (0-5/HPF); Squamous Epithelial Cell Urine 5-10 /HPF (0-5/HPF); WBC Urine 5-10/HPF (0-5/HPF)
== END ==
PROVIDERS: PCP Internal Medicine; Visit Provider Nurse Practitioner Family
DX: Z13.9 Encounter for screening, unspecified (principal)
CPT/HCPCS: 81001; 87077; 87086; 87147; 87186

== ENCOUNTER 2022-09-12 16:00 | Observation (INO) | payer MEDICARE, OTHER, SELFPAY ==
[2022-08-12 09:34] VITALS: BMI 22.8
[2022-09-12] VITALS (17 sets, daily range): BP systolic 111–181; BP diastolic 69–91; PULSE 70–117; RESP 12–35; TEMP 36.2–36.6; O2SAT 96–99; BMI 28.8; BMI 23.0
--- NOTE | 2022-09-12 16:15 | DI.CT.S_ITS ---
PROCEDURE: CT ANGIO CHEST PE PROTOCOL INDICATIONS: short of breath recent hospitalization TECHNIQUE: After the administration of intravenous contrast, 2 mm thick sections acquired from the pulmonary apices to the posterior costophrenic angles. 3-dimensional maximum intensity projection (MIP) coronal and sagittal reformats were then acquired through the thorax. For radiation dose reduction, the following was used: automated exposure control, adjustment of mA and/or kV according to patient size. COMPARISON: [facility], CT, CT ANGIO CHEST PE PROTOCOL, 08/18/2022, 16:47. FINDINGS: Image quality: Excellent. Pulmonary arteries: Pulmonary arteries are normal in size, and demonstrate no intraluminal filling defects to suggest central pulmonary embolism. Lungs and pleura: Chronic interstitial changes as well as areas of scarring and calcified granulomas are unchanged. No pleural effusions or pneumothorax. Central and peripheral airways are patent. Mediastinum: Heart size is enlarged with minimal pericardial effusion. No mediastinal or hilar adenopathy. Mild coronary artery calcifications are present. Thoracic aorta is normal in caliber and enhancement. Esophagus is normal in caliber, without hiatal hernia. Bones and chest wall: No suspicious bony lesions. Multilevel compression deformities are stable. Ribs and thoracic spine appear intact throughout. Thyroid gland is stable demonstrating bilateral calcifications. No axillary or supraclavicular adenopathy. Abdomen: Visualized upper abdominal solid organs appear normal in the early arterial phase of enhancement. IMPRESSION: No pulmonary embolism. Chronic interstitial pulmonary changes are present. Dictated by: Krista Tolliver M.D. on 09/12/2022 at 18:22 Approved by: Krisat Tolliver M.D. on 09/12/2022 at 18:25
[2022-09-12 16:23] LABS: Add Manual Diff / Slide Review NO; Basophils Absolute Auto 100 /uL (0-100); Basophils Percent Auto 0.5 % (0-2); Eosinophils Absolute Auto 0 /uL (0-450); Eosinophils Percent Auto 0.1 % (2-4); Hematocrit 41.4 % (36-46); Hemoglobin 13.9 g/dL (12.0-16.0); Lymphocytes Absolute Auto 1700 /uL (1100-4500); Lymphocytes Percent Auto 15.7 % (25-40); Mean Corpuscular HGB Conc 33.5 % (30-36); Mean Corpuscular Hemoglobin 30.6 PG (26-34); Mean Corpuscular Volume 91.4 fL (80-100); Monocytes Absolute Auto 300 /uL (0-900); Monocytes Percent Auto 3.1 % (3-14); Neutrophils Absolute Auto 8800 /uL (1500-7000); Neutrophils Percent Auto 80.6 % (50-75); Platelet Count 234 X10^3/uL (150-400); Red Blood Cell Count 4.53 X10^6/uL (4.0-5.2); Red Cell Distribution Width 19.3 % (11.6-14.8); White Blood Cell Count 10.9 X10^3/uL (4.5-11.0)
[2022-09-12 17:28] LABS: COVID19 -Nasal RAPID Negative (Negative)
[2022-09-12 17:29] LABS: Alanine Aminotransferase 33 IU/L (<35); Albumin 3.4 g/dL (3.5-5.0); Albumin Globulin Ratio 1.4 (1.0-2.8); Alkaline Phosphatase 89 U/L (38-126); Aspartate Aminotransferase 34 IU/L (14-36); BUN Creatinine Ratio 22.3 (6-22); Bilirubin Total 0.7 mg/dL (0.2-1.3); Blood Urea Nitrogen 35 mg/dL (7-17); Carbon Dioxide 20 mmol/L (22-32); Chloride 109 mmol/L (98-107); Creatine Kinase < 20 U/L (30-135); Estimated Glomerular Filt Rate 34 mL/min (>60); Globulin 2.4 g/dL (1.7-4.1); Glucose 112 mg/dL (80-110); HEMOLYSIS < 15 (0-50); Lipase 263 U/L (23-300); Potassium 5.2 mmol/L (3.4-5.1); Sodium 137 mmol/L (137-145); Total Protein 5.8 g/dL (6.3-8.2)
[2022-09-12 17:37] LABS: NT-proBNP (BNP-Adult 18+) 10100 pg/mL (<450)
[2022-09-12 17:45] LABS: Troponin I 0.021 ng/mL (0.01-0.034)
[2022-09-12 18:50] LABS: Creatine Kinase < 20 U/L (30-135)
[2022-09-12 19:01] LABS: Troponin I 0.021 ng/mL (0.01-0.034)
--- NOTE | 2022-09-12 19:17 | ED.GENADULT ---
HPI - General Adult General Chief complaint: Shortness of Breath/Dyspnea Stated complaint: CP/back pain, major change Time Seen by Provider: 09/12/22 16:10 Source: patient and EMS Mode of arrival: EMS History of Present Illness HPI narrative: Patient is a 76-year-old female who has been at [facility] after sustaining a head injury several weeks ago. A couple weeks ago she was also seen at an outside facility where she had a cardiac workup. Had a cardiac catheterization which was relatively unremarkable but also had an echocardiogram which showed an ejection fraction of approximately 30%. Patient is not on Lasix. Has chronic kidney disease. Is here for evaluation of 24-48 hours of dyspnea on exertion, chest pain and back pain, generalized body aches, lower extremity swelling. Patient is also expressing some dizziness. She does have a difficult time getting around even with a walker because of weakness. She uses a bedside commode at the rehab center but still needs individuals to help her get up and move. Related Data Home Medications Medication Instructions Recorded Confirmed polyethylene glycol 3350 17 gram 17 gram PO DAILY PRN Constipation 10/09/17 09/12/22 oral powder packet potassium chloride 20 mEq 20 meq PO DAILY 06/10/22 09/12/22 tablet,extended release(part/cryst) aspirin 81 mg capsule 81 mg PO DAILY 09/12/22 09/12/22 citalopram 10 mg tablet 10 mg PO DAILY 09/12/22 09/12/22 empagliflozin 25 mg tablet 12.5 mg PO DAILY 09/12/22 09/12/22 (Jardiance) levothyroxine 100 mcg tablet 100 mcg PO DAILY 09/12/22 09/12/22 metoprolol succinate 100 mg 100 mg PO DAILY 09/12/22 09/12/22 tablet,extended release 24 hr pantoprazole 40 mg tablet,delayed 40 mg PO DAILY 09/12/22 09/12/22 release prednisone 5 mg tablet mg PO 09/12/22 sertraline 100 mg tablet 100 mg PO DAILY 09/12/22 09/12/22 simvastatin 10 mg tablet 10 mg PO DAILY 09/12/22 09/12/22 topiramate 25 mg tablet 25 mg PO DAILY 09/12/22 09/12/22 Previous Rx's Medication Instructions Recorded lidocaine 5 % topical patch 1 patch topical DAILY PRN back 07/08/22 (Lidoderm) pain #30 ea Allergies Allergy/AdvReac Type Severity Reaction Status Date / Time amoxicillin [AMOXICILLIN] Allergy Severe rash and Verified 06/10/22 09:13 diarrhea oxybutynin Allergy Severe tongue Verified 06/10/22 09:13 swells Sulfa (Sulfonamide Allergy Severe fever and Verified 06/10/22 09:13 Antibiotics) rash [SULFA (SULFONAMIDE ANTIBIOTICS)] NSAIDS (Non-Steroidal Allergy Unknown Verified 06/10/22 09:13 Anti-Inflamma [NSAIDS (NON-STEROIDAL ANTI-INFLAMMA] cephalexin Allergy rash Verified 06/10/22 09:13 codeine [CODEINE] AdvReac Mild headache Verified 06/10/22 09:13 duloxetine [From CYMBALTA] AdvReac Mild vomiting Verified 06/10/22 09:13 morphine [MORPHINE] AdvReac Mild vomiting Verified 06/10/22 09:13 nitrofurantoin AdvReac Mild vomiting Verified 06/10/22 09:13 [From MACROBID] carisoprodol AdvReac Verified 06/10/22 09:13 piroxicam [From Feldene] AdvReac Verified 06/10/22 09:13 tolterodine AdvReac Verified 06/10/22 09:13 Review of Systems Review of Systems ROS Unobtainable: All systems reviewed & are unremarkable except as noted in HPI and below Patient History Medical History Atypical migraine Bilateral lower extremity edema Chicken pox (~1951) Chronic adrenal insufficiency Chronic anticoagulation Chronic back pain (~1964) Chronic diarrhea Chronic kidney disease Fecal incontinence (~2021) Headache (~2021) Hearing loss (~2011) History of DVT (deep vein thrombosis) History of kidney disease (~2002) Hyperlipidemia Hypertension Interstitial lung disease Irritable bowel syndrome (~2012) Measles (~1951) Mixed hyperlipidemia Mumps (~1951) 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 Stage 3b chronic kidney disease (CKD) Uses walker Venous (peripheral) insufficiency Surgical History (Updated 09/13/22 @ 00:12 by LORENE Andino) Anesthesia History of back surgery (~2012) History of left heart catheterization (LHC) History of throat surgery (~1974) Family History Father Cancer History of heart disease Mother Hypertension Social History household members: spouse Smoking Status: Never smoker alcohol intake: current Smoking Status: Never smoker alcohol intake frequency: 0-2 drinks per day Substance Use Type: does not use Exam Initial Vital Signs Initial Vital Signs: Vital Signs Pulse Rate 82 09/12/22 16:07 Respiratory Rate 12 09/12/22 16:07 Blood Pressure 133/91 H 09/12/22 16:07 Pulse Oximetry 96 09/12/22 16:07 HENMT Head: normal to inspection and normocephalic Resp Effort & Inspection: normal respiratory effort and tachypneic Auscultation: crackles Cardio Rate: regular rate Rhythm: regular rhythm GI Inspection: normal to inspection Skin General: no rashes or lesions noted Neuro General: patient alert, patient awake, patient oriented x3 and moves all extremities Extrem General: edema Course Orders Ordered: ED Orders 09/12/22 16:00 Complete Blood Count AUTO DIFF Stat Comprehensive Metabolic Panel Stat Lipase Stat NT-proBNP (BNP-Adult 18+) Stat Troponin & CK Cardiac Panel Stat 09/12/22 16:12 EKG-12 Lead Routine 09/12/22 16:15 CT angio chest PE protocol Stat 09/12/22 17:11 COVID19 -Nasal RAPID Stat 09/12/22 18:23 Troponin & CK Cardiac Panel Stat Acetaminophen (Acetaminophen 325 Mg Tablet) 650 mg PO Q4H PRN PRN Reason: Fever/Mild Pain (1-3) Al Hydrox/Mg Hydrox/Simethicone (Mag Hydrox/Alum/Simeth 30 Ml Udc) 30 ml PO Q6HR PRN PRN Reason: Dyspepsia Atorvastatin Calcium (Atorvastatin 20 Mg Tablet) 10 mg PO BEDTIME BRANDON Calcium Carbonate (Calcium Carbonate 500 Mg Tab) 1,000 mg PO Q4HR PRN PRN Reason: Dyspepsia Furosemide (Furosemide 20 Mg/2 Ml Vial) 20 mg IV DAILY BRANDON Levothyroxine Sodium (Levothyroxine 112 Mcg Tablet) 112 mcg PO DAILY BRANDON Lidocaine (Lidocaine Patch 1 Each Adh..Patch) 1 each TOP DAILY PRN PRN Reason: back pain Methocarbamol (Methocarbamol 500 Mg Tablet) 500 mg PO BID PRN PRN Reason: muscle spasm Naloxone HCl (Naloxone 0.4 Mg/Ml Vial) 0.2 mg IV Q2MIN PRN PRN Reason: Opiate Reversal Topiramate 25 Mg Capsule,Extended Release 24hr) 50 mg PO BEDTIME BRANDON Ondansetron HCl (Ondansetron 4 Mg Odt) 4 mg PO Q4HR PRN PRN Reason: Nausea And Vomiting Pantoprazole Sodium (Pantoprazole Dr 20 Mg Tablet) 20 mg PO DAILY BRANDON Prednisone (Prednisone 5 Mg Tablet) 5 mg PO DAILY [facility] Sennosides (Sennosides 8.6 Mg Tablet) 17.2 mg PO BEDTIME BRANDON Sertraline HCl (Sertraline 50 Mg Tablet) 100 mg PO DAILY BRANDON Discontinued Medications Furosemide (Furosemide 40 Mg/4 Ml Vial) 40 mg IV NOW ONE Stop: 09/12/22 20:54 Last Admin: 09/12/22 21:59 Dose: 40 mg Documented By: LEANDRO Furosemide (Furosemide 20 Mg/2 Ml Vial) 20 mg IV BID BRANDON Vital Signs Vital signs: Vital Signs - 8 hr 09/12/22 17:00 09/12/22 17:00 09/12/22 17:30 Pulse Rate 81 Respiratory Rate 28 H Blood Pressure 123/77 111/73 Pulse Oximetry 97 Oxygen Delivery Method 09/12/22 17:30 09/12/22 18:00 09/12/22 18:30 Pulse Rate 81 78 77 Respiratory Rate 33 H 25 H 19 Blood Pressure Pulse Oximetry 97 97 98 Oxygen Delivery Method Room Air 09/12/22 19:00 09/12/22 19:30 09/12/22 20:00 Pulse Rate 117 H 79 77 Respiratory Rate 35 H 23 24 Blood Pressure Pulse Oximetry 97 97 98 Oxygen Delivery Method 09/12/22 20:30 Pulse Rate 81 Respiratory Rate 20 Blood Pressure Pulse Oximetry 98 Oxygen Delivery Method Medical Decision Making Lab Data Lab results reviewed: Yes I reviewed the patient's lab results. 09/12/22 16:00 09/12/22 16:00 Labs: Lab Results 09/12/22 09/12/22 09/12/22 Range/Units 16:00 16:00 16:00 WBC 10.9 (4.5-11.0) X10^3/uL RBC 4.53 (4.0-5.2) X10^6/uL Hgb 13.9 (12.0-16.0) g/dL Hct 41.4 (36-46) % MCV 91.4 (80-100) fL MCH 30.6 (26-34) PG MCHC 33.5 (30-36) % RDW 19.3 H (11.6-14.8) % Plt Count 234 (150-400) X10^3/uL Neut % (Auto) 80.6 H (50-75) % Lymph % (Auto) 15.7 L (25-40) % [place] % (Auto) 3.1 (3-14) % Eos % (Auto) 0.1 L (2-4) % Baso % (Auto) 0.5 (0-2) % Neut # (Auto) 8800 H (8081-3974) /uL Lymph # (Auto) 1700 (0739-7484) /uL [place] # (Auto) 300 (0-900) /uL Eos # (Auto) 0 (0-450) /uL Baso # (Auto) 100 (0-100) /uL Sodium 137 (137-145) mmol/L Potassium 5.2 H (3.4-5.1) mmol/L Chloride 109 H (98-107) mmol/L Carbon Dioxide 20 L (22-32) mmol/L BUN 35 H (7-17) mg/dL Creatinine 1.57 H (0.52-1.04) mg/dL Estimated GFR 34 L (>60) mL/min BUN/Creatinine Ratio 22.3 H (6-22) Glucose 112 H (80-110) mg/dL Calcium 9.0 (8.4-10.2) mg/dL Magnesium (1.6-2.3) mg/dL Total Bilirubin 0.7 (0.2-1.3) mg/dL AST 34 (14-36) IU/L ALT 33 (<35) IU/L Alkaline Phosphatase 89 (38-126) U/L Total Creatine Kinase < 20 L (30-135) U/L CK-MB (CK-2) TNP CK-MB (CK-2) Rel Index TNP Troponin I 0.021 (0.01-0.034) ng/mL NT-Pro-B Natriuret Pep 83019 H (<450) pg/mL Total Protein 5.8 L (6.3-8.2) g/dL Albumin 3.4 L (3.5-5.0) g/dL Globulin 2.4 (1.7-4.1) g/dL Albumin/Globulin Ratio 1.4 (1.0-2.8) Lipase 263 (23-300) U/L Procalcitonin (<0.5) ng/mL TSH (0.47-4.68) uIU/mL SARS-CoV-2 (PCR) (Negative) 09/12/22 09/12/22 09/12/22 Range/Units 17:11 18:23 18:23 WBC (4.5-11.0) X10^3/uL RBC (4.0-5.2) X10^6/uL Hgb (12.0-16.0) g/dL Hct (36-46) % MCV (80-100) fL MCH (26-34) PG MCHC (30-36) % RDW (11.6-14.8) % Plt Count (150-400) X10^3/uL Neut % (Auto) (50-75) % Lymph % (Auto) (25-40) % [place] % (Auto) (3-14) % Eos % (Auto) (2-4) % Baso % (Auto) (0-2) % Neut # (Auto) (5902-1722) /uL Lymph # (Auto) (5134-3845) /uL [place] # (Auto) (0-900) /uL Eos # (Auto) (0-450) /uL Baso # (Auto) (0-100) /uL Sodium (137-145) mmol/L Potassium (3.4-5.1) mmol/L Chloride (98-107) mmol/L Carbon Dioxide (22-32) mmol/L BUN (7-17) mg/dL Creatinine (0.52-1.04) mg/dL Estimated GFR (>60) mL/min BUN/Creatinine Ratio (6-22) Glucose (80-110) mg/dL Calcium (8.4-10.2) mg/dL Magnesium (1.6-2.3) mg/dL Total Bilirubin (0.2-1.3) mg/dL AST (14-36) IU/L ALT (<35) IU/L Alkaline Phosphatase (38-126) U/L Total Creatine Kinase < 20 L (30-135) U/L CK-MB (CK-2) TNP CK-MB (CK-2) Rel Index TNP Troponin I 0.021 (0.01-0.034) ng/mL NT-Pro-B Natriuret Pep (<450) pg/mL Total Protein (6.3-8.2) g/dL Albumin (3.5-5.0) g/dL Globulin (1.7-4.1) g/dL Albumin/Globulin Ratio (1.0-2.8) Lipase (23-300) U/L Procalcitonin (<0.5) ng/mL TSH 0.154 L (0.47-4.68) uIU/mL SARS-CoV-2 (PCR) Negative (Negative) 09/12/22 09/12/22 Range/Units 18:23 18:23 WBC (4.5-11.0) X10^3/uL RBC (4.0-5.2) X10^6/uL Hgb (12.0-16.0) g/dL Hct (36-46) % MCV (80-100) fL MCH (26-34) PG MCHC (30-36) % RDW (11.6-14.8) % Plt Count (150-400) X10^3/uL Neut % (Auto) (50-75) % Lymph % (Auto) (25-40) % [place] % (Auto) (3-14) % Eos % (Auto) (2-4) % Baso % (Auto) (0-2) % Neut # (Auto) (2112-6228) /uL Lymph # (Auto) (9116-7002) /uL [place] # (Auto) (0-900) /uL Eos # (Auto) (0-450) /uL Baso # (Auto) (0-100) /uL Sodium (137-145) mmol/L Potassium (3.4-5.1) mmol/L Chloride (98-107) mmol/L Carbon Dioxide (22-32) mmol/L BUN (7-17) mg/dL Creatinine (0.52-1.04) mg/dL Estimated GFR (>60) mL/min BUN/Creatinine Ratio (6-22) Glucose (80-110) mg/dL Calcium (8.4-10.2) mg/dL Magnesium 2.3 (1.6-2.3) mg/dL Total Bilirubin (0.2-1.3) mg/dL AST (14-36) IU/L ALT (<35) IU/L Alkaline Phosphatase (38-126) U/L Total Creatine Kinase (30-135) U/L CK-MB (CK-2) CK-MB (CK-2) Rel Index Troponin I (0.01-0.034) ng/mL NT-Pro-B Natriuret Pep (<450) pg/mL Total Protein (6.3-8.2) g/dL Albumin (3.5-5.0) g/dL Globulin (1.7-4.1) g/dL Albumin/Globulin Ratio (1.0-2.8) Lipase (23-300) U/L Procalcitonin 0.11 (<0.5) ng/mL TSH (0.47-4.68) uIU/mL SARS-CoV-2 (PCR) (Negative) Urine Dip Bedside Urine Glucose 250 mg/dl Bedside Urine Bilirubin - Negative Bedside Urine Ketone - Negative Urine Specific [place] 1.010 Bedside Urine Occult Blood - Negative Bedside Urine pH 6.0 Bedside Urine Protein - Negative Bedside Urine Urobilinogen - Negative Bedside Urine Nitrite - Negative Bedside Urine Leukocytes - Negative Esterase Point of care testing: Urine Dip Bedside Urine Glucose 250 mg/dl Bedside Urine Bilirubin - Negative Bedside Urine Ketone - Negative Urine Specific [place] 1.010 Bedside Urine Occult Blood - Negative Bedside Urine pH 6.0 Bedside Urine Protein - Negative Bedside Urine Urobilinogen - Negative Bedside Urine Nitrite - Negative Bedside Urine Leukocytes - Negative Esterase Imaging Data CT scan - chest: Radiologist's Impression: PROCEDURE:? CT ANGIO CHEST PE PROTOCOL ? INDICATIONS:? short of breath recent hospitalization ? TECHNIQUE:? After the administration of intravenous contrast, 2 mm thick sections acquired from the pulmonary apices to the posterior costophrenic angles.? 3-dimensional maximum intensity projection (MIP) coronal and sagittal reformats were then acquired through the thorax.? For radiation dose reduction, the following was used:? automated exposure control, adjustment of mA and/or kV according to patient size.? ? COMPARISON:? [facility], CT, CT ANGIO CHEST PE PROTOCOL, 08/18/2022, 16:47. ? FINDINGS:? Image quality:? Excellent.? ? Pulmonary arteries:? Pulmonary arteries are normal in size, and demonstrate no intraluminal filling defects to suggest central pulmonary embolism.? ? Lungs and pleura:? Chronic interstitial changes as well as areas of scarring and calcified granulomas are unchanged.? No pleural effusions or pneumothorax.? Central and peripheral airways are patent.? ? Mediastinum:? Heart size is enlarged with minimal pericardial effusion.? No mediastinal or hilar adenopathy.? Mild coronary artery calcifications are present.? Thoracic aorta is normal in caliber and enhancement.? Esophagus is normal in caliber, without hiatal hernia.? ? Bones and chest wall:? No suspicious bony lesions.? Multilevel compression deformities are stable.? Ribs and thoracic spine appear intact throughout.? Thyroid gland is stable demonstrating bilateral calcifications.? No axillary or supraclavicular adenopathy.? ? Abdomen:? Visualized upper abdominal solid organs appear normal in the early arterial phase of enhancement.? ? IMPRESSION:? ? No pulmonary embolism. ? Chronic interstitial pulmonary changes are present. ? ? Dictated by: Krista Tolliver M.D. on 09/12/2022 at 18:22 ? ? Approved by: Krista Tolliver M.D. on 09/12/2022 at 18:25? ECG Data Attestation: I personally reviewed and interpreted this ECG as follows: Interpretation: Sinus rhythm Ventricular rate 90 Occasional PACs QRS 1-0 milliseconds Normal QTC Nonspecific ST T wave changes MDM Narrative Medical decision making narrative: CT scan of the chest shows no signs of pulmonary embolism. Patient's BNP is elevated and she does have lower extremity swelling and does have dyspnea on exertion. Patient had a very difficult time even standing at bedside to get out of the bed because of shortness of breath and also weakness. Patient does require diuresis and I feel that if discharging her home she would have a difficult time getting out of the bed to using the bedside commode. Because of this we will admit to the hospital for IV diuresis and care. Discussed the case with then josephine Pendleton who will admit the patient. Discussed the need for admission with the patient and she expressed understanding and agreement with plan. Discharge Plan Departure Patient Disposition: Admitted as Observation Clinical Impression: CHF (congestive heart failure), Exertional dyspnea Admit Date/Time: 09/12/22 20:55 Admit Provider: Beverley Pendleton
--- NOTE | 2022-09-12 20:32 | PC.NURSE ---
CHANNEL DEVELOPMENT MANAGER note: Ambulated patient up with a gait belt and walker. Patient was unsteady up, saying her legs felt weak. After about 5 steps patient moved significantly slower. When we turned around to walk back to her room patient would need to stop frequently (every step) to get my strength. Said my legs feel like they will give out.
--- NOTE | 2022-09-12 21:14 | PM.HP.1 ---
History of Present Illness History of Present Illness Date Patient Seen: 09/12/22 Time Patient Seen: 21:15 Chief complaint: CHF exac Narrative: Christine Burger (Lorraine) is a bashir 76 year-old patient with a history of hypertension, hyperlipidemia, chronic hip pain, autoimmune disease, chronic kidney disease stage 4, hypothyroidism, reflux, prior DVT currently anticoagulated on Coumadin, bilateral lower extremity lymphedema, Frequent falls, chronic spondylosis/lumbar stenosis with acute sacral insufficiency fractures bilaterally secondary to pathological fractures from osteoporosis, L2 compression fracture, prior lumbar laminectomy,? right hip arthroplasty, LLE venous insufficiency, pulmonary fibrosis, fequent falls, cognitive impairment, had been transferred from [facility] to [facility] for heart catheterization on 08/18/2022 for NSTEMI, and new diagnosis of heart failure w/cardiomyopathy was d/c to [facility]. Patient was sent over from [facility] due to increasing body aches and weakness, patient requiring 2 person assist for transfers over the past week. Patient was slightly tachypneic in ED respiratory rate 26-28. On admit exam patient mildly confused which is I believe her baseline, based on my personal experience with patient with previous admits. Patient is a poor historian and unable to accurately contribute to ROS or HPI. On admit exam patient denies any symptoms other than her chronic low back pain, but when questioned further she then denies pain. Patient verbalized that she is been living at home with her she has in fact [facility]. She is found to be normotensive and in no distress at this time. Patient is hemodynamically stable BP 133/91, 82, 12, 96% on room air. Patient has no white count does absolute neutrophils 8800, potassium 5.2, chloride 109, bicarb 20, BUN 35, creatinine 1.57, GFR 34-patient's renal function is at baseline for CKD stage 4. Patient had not been prescribed Lasix as an outpatient due to CKD stage 4. Troponin negative-0.021, I personally reviewed EKG sinus rhythm 90, with PACs, low-voltage QRS possible anteriorseptal infarct, unchanged from previous EKG 08/18/2022. BNP 10,000, lipase 263, urinalysis negative, CTA: negative for PE. Patient admitted for CHF exacerbation. [facility] Medical History (Updated 09/13/22 @ 00:12 by CRISTI Andino-) Atypical migraine Bilateral lower extremity edema Chicken pox (~1951) Chronic adrenal insufficiency Chronic anticoagulation Chronic back pain (~1964) Chronic diarrhea Chronic kidney disease Fecal incontinence (~2021) Headache (~2021) Hearing loss (~2011) History of DVT (deep vein thrombosis) History of kidney disease (~2002) Hyperlipidemia Hypertension Interstitial lung disease Irritable bowel syndrome (~2012) Measles (~1951) Mixed hyperlipidemia Mumps (~1951) 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 Stage 3b chronic kidney disease (CKD) Uses walker Venous (peripheral) insufficiency Surgical History (Updated 09/13/22 @ 00:12 by CRISTI Andino-) Anesthesia History of back surgery (~2012) History of left heart catheterization (LHC) History of throat surgery (~1974) Family History Father Cancer History of heart disease Mother Hypertension Social History household members: spouse Smoking Status: Never smoker alcohol intake: current Meds Home Medications and Allergies Home Medications Medication Instructions Recorded Confirmed Type polyethylene glycol 3350 17 gram 17 gram PO DAILY PRN Constipation 10/09/17 09/12/22 History oral powder packet potassium chloride 20 mEq 20 meq PO DAILY 06/10/22 09/12/22 History tablet,extended release(part/cryst) lidocaine 5 % topical patch 1 patch topical DAILY PRN back 07/08/22 09/12/22 Rx (Lidoderm) pain #30 ea aspirin 81 mg capsule 81 mg PO DAILY 09/12/22 09/12/22 History citalopram 10 mg tablet 10 mg PO DAILY 09/12/22 09/12/22 History empagliflozin 25 mg tablet 12.5 mg PO DAILY 09/12/22 09/12/22 History (Jardiance) levothyroxine 100 mcg tablet 100 mcg PO DAILY 09/12/22 09/12/22 History metoprolol succinate 100 mg 100 mg PO DAILY 09/12/22 09/12/22 History tablet,extended release 24 hr pantoprazole 40 mg tablet,delayed 40 mg PO DAILY 09/12/22 09/12/22 History release prednisone 5 mg tablet mg PO 09/12/22 History sertraline 100 mg tablet 100 mg PO DAILY 09/12/22 09/12/22 History simvastatin 10 mg tablet 10 mg PO DAILY 09/12/22 09/12/22 History topiramate 25 mg tablet 25 mg PO DAILY 09/12/22 09/12/22 History Allergies Allergy/AdvReac Type Severity Reaction Status Date / Time amoxicillin [AMOXICILLIN] Allergy Severe rash and Verified 06/10/22 09:13 diarrhea oxybutynin Allergy Severe tongue Verified 06/10/22 09:13 swells Sulfa (Sulfonamide Allergy Severe fever and Verified 06/10/22 09:13 Antibiotics) rash [SULFA (SULFONAMIDE ANTIBIOTICS)] NSAIDS (Non-Steroidal Allergy Unknown Verified 06/10/22 09:13 Anti-Inflamma [NSAIDS (NON-STEROIDAL ANTI-INFLAMMA] cephalexin Allergy rash Verified 06/10/22 09:13 codeine [CODEINE] AdvReac Mild headache Verified 06/10/22 09:13 duloxetine [From CYMBALTA] AdvReac Mild vomiting Verified 06/10/22 09:13 morphine [MORPHINE] AdvReac Mild vomiting Verified 06/10/22 09:13 nitrofurantoin AdvReac Mild vomiting Verified 06/10/22 09:13 [From MACROBID] carisoprodol AdvReac Verified 06/10/22 09:13 piroxicam [From Feldene] AdvReac Verified 06/10/22 09:13 tolterodine AdvReac Verified 06/10/22 09:13 Review of Systems Review of Systems Narrative: All 12 point systems reviewed with the patient and are negative except otherwise documented. Exam Vital Signs (past 8 hours): - 09/12/22 16:08 09/12/22 16:14 09/12/22 16:07 Temperature 97.8 F 97.8 F Pulse Rate 82 82 Respiratory Rate 26 H Blood Pressure 133/91 H 133/91 H 133/91 H Pulse Oximetry 96 97 Oxygen Delivery Method Room Air Room Air 09/12/22 16:07 09/12/22 16:30 09/12/22 16:30 Temperature Pulse Rate 82 81 Respiratory Rate 12 22 Blood Pressure 142/76 H Pulse Oximetry 96 97 Oxygen Delivery Method 09/12/22 17:00 09/12/22 17:00 09/12/22 17:30 Temperature Pulse Rate 81 Respiratory Rate 28 H Blood Pressure 123/77 111/73 Pulse Oximetry 97 Oxygen Delivery Method 09/12/22 17:30 09/12/22 18:00 09/12/22 18:30 Temperature Pulse Rate 81 78 77 Respiratory Rate 33 H 25 H 19 Blood Pressure Pulse Oximetry 97 97 98 Oxygen Delivery Method Room Air 09/12/22 19:00 09/12/22 19:30 09/12/22 20:00 Temperature Pulse Rate 117 H 79 77 Respiratory Rate 35 H 23 24 Blood Pressure Pulse Oximetry 97 97 98 Oxygen Delivery Method Oxygen Delivery Method Room Air Narrative Exam Narrative: General:? Frail-appearing, thin delightful elderly female, in no distress at this time HEENT:? dry mucous membranes, normal sclera with reactive pupils, airway is patent.? Neck:? Minimal JVD, supple Respiratory:? Lung sounds are clear in all castro without any adventitious sounds Cardiac:? RRR without no murmurs, rubs or gallops Abdomen:? Soft, nontender, decreased bowel tones in all 4 quadrants, no CVA tenderness Skin:? Warm and dry, multiple bruising present various stages of healing to upper and lower extremities, noted significant abrasions to bilateral anterior lower extremities. Neurologic:? Globally weak but Grossly neurologically intact with no obvious asymmetries or abnormalities Extremities: warm dry, cracking skin, radial & pedal pulses intact, lower extremity chronic venous stasis changes, 2+ lower extremity edema bilaterally-patient baseline. Psych:? Patient is calm, mild cognitive impairment/confusion, poor historian-patient baseline. Objective Labs 09/12/22 16:00 09/12/22 16:00 Labs: Laboratory Results - last 24 hr 09/12/22 09/12/22 09/12/22 16:00 16:00 16:00 WBC 10.9 RBC 4.53 Hgb 13.9 Hct 41.4 MCV 91.4 MCH 30.6 MCHC 33.5 RDW 19.3 H Plt Count 234 Neut % (Auto) 80.6 H Lymph % (Auto) 15.7 L [place] % (Auto) 3.1 Eos % (Auto) 0.1 L Baso % (Auto) 0.5 Neut # (Auto) 8800 H Lymph # (Auto) 1700 [place] # (Auto) 300 Eos # (Auto) 0 Baso # (Auto) 100 Sodium 137 Potassium 5.2 H Chloride 109 H Carbon Dioxide 20 L BUN 35 H Creatinine 1.57 H Estimated GFR 34 L BUN/Creatinine Ratio 22.3 H Glucose 112 H Calcium 9.0 Total Bilirubin 0.7 AST 34 ALT 33 Alkaline Phosphatase 89 Total Creatine Kinase < 20 L CK-MB (CK-2) TNP CK-MB (CK-2) Rel Index TNP Troponin I 0.021 NT-Pro-B Natriuret Pep 32811 H Total Protein 5.8 L Albumin 3.4 L Globulin 2.4 Albumin/Globulin Ratio 1.4 Lipase 263 SARS-CoV-2 (PCR) 09/12/22 09/12/22 17:11 18:23 WBC RBC Hgb Hct MCV MCH MCHC RDW Plt Count Neut % (Auto) Lymph % (Auto) Montgomery % (Auto) Eos % (Auto) Baso % (Auto) Neut # (Auto) Lymph # (Auto) Montgomery # (Auto) Eos # (Auto) Baso # (Auto) Sodium Potassium Chloride Carbon Dioxide BUN Creatinine Estimated GFR BUN/Creatinine Ratio Glucose Calcium Total Bilirubin AST ALT Alkaline Phosphatase Total Creatine Kinase < 20 L CK-MB (CK-2) TNP CK-MB (CK-2) Rel Index TNP Troponin I 0.021 NT-Pro-B Natriuret Pep Total Protein Albumin Globulin Albumin/Globulin Ratio Lipase SARS-CoV-2 (PCR) Negative Assessment & Plan Assessment & Plan narrative: Christine Burger (Lorraine) is a bashir 76 year-old patient with a history of hypertension, hyperlipidemia, chronic hip pain, autoimmune disease, chronic kidney disease stage 4, hypothyroidism, reflux, prior DVT currently anticoagulated on Coumadin, bilateral lower extremity lymphedema, chronic spondylosis/lumbar stenosis with acute sacral insufficiency fractures bilaterally secondary to pathological fractures from osteoporosis, L2 compression fracture, prior lumbar laminectomy,? right hip arthroplasty, LLE venous insufficiency, pulmonary fibrosis, Hx of Covid, CHF with cardiomyopathy, heart catheterization on 08/20/2022 for NSTEMI, chronic cognitive impairment with multiple ED visits/admits to [facility] & [facility] in the past 6 months. Patient initially admitted for CHF exacerbation per ED, but on admit exam patient had no signs or symptoms of fluid overload or CHF exacerbation. Instead admitting patient for global weakness/cognitive impairment versus encephalopathy of unknown etiology. This may simply be the patient's aging process coupled with her increasing complex comorbidities. Patient requires hospitalization after failing outpatient management. Patient will receive gentle rehydration, rule out an infectious process, evaluation by PT, OT, PERFORMANCE IMPROVEMENT COORDINATOR to determine physical needs, patient also may require psych evaluation for mild cognitive impairment/dementia. Global weakness, deconditioning, acute on chronic, with mild sepsis of unknown etiology, present on admission -[facility] due to requiring 2 patient assist for transfers, worsening global weakness. On admit exam I found the patient to be hypovolemic, no signs of exacerbation of heart failure, no shortness of breath. -of initiated further workup to rule out infectious process. This may just be further deconditioning due to recent and frequent hospitalizations and health complications. -patient did not meet SIRS criteria in ED, Sofa score: 2 : PaO2: 86, GCS 14, creatinine 1.57. -ordered blood & urine culture, respiratory panel, procalcitonin, wound culture from lower leg wounds-recent lac repair. 08/2022. -PT/OT/PERFORMANCE IMPROVEMENT COORDINATOR consult -strict fall precautions Frequent falls, chronic, present on admission -Frequent emergency department visits and admissions -see above -PT/OT eval September 12, 2022 [facility]-admit August 18- August 23, 2022 [facility] for heart catheterization/admit August 18, 2022 [facility] chest pain- transferred to [facility] August 10 ground level fall on thinners [facility]-admit July 29, 2022 [facility] July 08, 2022 [facility] back pain April 29, 2022 [facility] fall on blood thinners head injury March 08, 2022 [facility] weakness and dizzy March 01, 2022 [facility] tachycardia Cognitive impairment/Decline versus encephalopathy, acute on chronic, present on admission -believe that patient's cognitive impairment is her baseline likely Dementia but unclear as patient has been seriously ill on previous hospitalizations. -patient unable to contribute to HPI, ROS, medication reconciliation -will rule out infectious process Congestive heart failure, with cardiomyopathy, chronic, present on admission -I personally reviewed: Last echo 08/22/2022 EF 35-40%, LVEF has decreased since prior study, moderate global hypokinesis of the left ventricle, significant dyssynchronous contraction pattern consistent with conduction abnormality. -on exam patient hypovolemic, mucus membranes/skin dry, lung sounds are clear, no SOB/tachypnea, 02sat 96-99%on rmair, bilateral lower extremity lymphedema at baseline, no signs of CHF exacerbation, we will continue to monitor. -history of NSTEMI believed to be secondary to COVID-19 infection 08/20/2022, with left vent heart catheterization -low-sodium diet, fluid restriction, IV Lasix 20 mg daily -monitor electrolytes -monitor for fluid overload/respiratory distress Lymphedema, chronic, present on admission -bilateral lower extremity nonpitting, +2 edema- baseline -monitor for worsening lymphedema -IV Lasix 20 mg q.day for gentle diuresis-monitor renal function hypertension, essential, acute on chronic, present on admission -patient takes no regular medications for hypertension -temporary bridge covered: metoprolol 5 mg IV for coverage:? Give for >30min sustained SBP>180,DBP>100,HR>110 (cautious of low heart rate) History of DVT on chronic anticoagulation, chronic, present on admission - Continue Coumadin - patient may not be the best candidate to continue with anticoagulation. 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 Malnutrition, mild, acute, present on admission -previous BMI 28, BMI 08/2022-23.5, Today BMI 23 -patient's malnutrition places them at high risk for medical and surgical complications in relation to acute illness/chronic illness.? This increases the difficulty in complexity of medical management and increases the chances poor outcomes such as mortality and morbidity as well as impaired wound healing, and immune suppression. -dietary consult ordered to evaluate and implement steps to improve caloric intake and nutrition. Hypothyroidism, acquired, chronic, present on admission -continue levothyroxine -Ordered TSH: 0.154 - decreased dosage 100 to 75mcg-repeat TSH in 6 weeks ? Atypical migraine, chronic, present on admission -continue Topiramate, Depression, chronic, present on admission -continue sertraline Code: Full PCP Kojoann Surrogate: Bill Love spouse DVT/VTE: Lovenox & SCD's Disposition:? Patient admitted for OBS expected length of stay less than 2 midnights. I have utilized all available immediate resources to obtain, update, or review the patient's current medications.. I confirmed that the patient's advanced care plan is present, Code status is documented and/or surrogate decision maker is listed in the patient's medical record. I have personally reviewed patient's chart notes from PCP, specialists, diagnostic imaging, and laboratory results, to include [facility] records from 08/2022, echo, cardiac catheterization, & hospital stay. Scores GCS [place] coma scale eye opening: Spontaneous [place] coma scale verbal response: Confused [place] coma scale motor response: Obey commands Miguel coma scale total score: 14
[2022-09-12 21:34] LABS: Magnesium 2.3 mg/dL (1.6-2.3)
[2022-09-12] MEDS: FUROSEMIDE 40 MG/4 ML VIAL IV (21:59)
[2022-09-12 22:05] LABS: Thyroid Stimulating Hormone 0.154 uIU/mL (0.47-4.68)
[2022-09-12 22:18] LABS: Procalcitonin 0.11 ng/mL (<0.5)
--- NOTE | 2022-09-12 23:47 | PC.NURSE ---
Pt arrived from ER around 2244, slider board used. Pt Duarte noguera 2-3. Bed alarm on, patient educated recreation assistant remote and bed.
[2022-09-13] VITALS (7 sets, daily range): BP systolic 104–123; BP diastolic 49–76; PULSE 45–106; RESP 17–20; TEMP 36.1–36.6; O2SAT 94–99
[2022-09-13 01:03] LABS: Adenovirus Not Detected (Not Detect); B. parapertussis Not Detected (Not Detecte); Bordetella pertussis Not Detected (Not Detecte); Chlamydophila pneumoniae Not Detected (Not Detect); Coronavirus 229E Not Detected (Not Detect); Coronavirus HKU1 Not Detected (Not Detect); Coronavirus NL 63 Not Detected (Not Detect); Coronavirus OC43 Not Detected (Not Detect); Human Metapneumovirus Not Detected (Not Detect); Human Rhinovirus/Enterovirus Not Detected (Not Detect); Influenza A Not Detected (Not Detect); Influenza B Not Detected (Not Detect); Mycoplasma pneumoniae Not Detected (Not Detect); Parainfluenza Virus 1 Not Detected (Not Detect); Parainfluenza Virus 2 Not Detected (Not Detect); Parainfluenza Virus 3 Not Detected (Not Detect); Parainfluenza Virus 4 Not Detected (Not Detect); Respiratory Syncytial Virus Not Detected (Not Detect); SARS- CoV-2 Not Detected (Not Detecte)
[2022-09-13 01:32] LABS: Lactate (Lactic Acid) 1.3 mmol/L (0.7-2.1)
[2022-09-13] MEDS: SODIUM CHLORIDE 0.9% 1,000 ML 60 ML IV (01:39)
[2022-09-13 06:38] LABS: Add Manual Diff / Slide Review NO; Basophils Absolute Auto 100 /uL (0-100); Eosinophils Absolute Auto 100 /uL (0-450); Eosinophils Percent Auto 0.4 % (2-4); Hematocrit 41.5 % (36-46); Hemoglobin 13.6 g/dL (12.0-16.0); Lymphocytes Absolute Auto 3800 /uL (1100-4500); Lymphocytes Percent Auto 28.6 % (25-40); Mean Corpuscular HGB Conc 32.8 % (30-36); Mean Corpuscular Hemoglobin 30.4 PG (26-34); Mean Corpuscular Volume 92.9 fL (80-100); Monocytes Absolute Auto 1000 /uL (0-900); Monocytes Percent Auto 7.6 % (3-14); Neutrophils Absolute Auto 8400 /uL (1500-7000); Neutrophils Percent Auto 62.4 % (50-75); Platelet Count 137 X10^3/uL (150-400); Red Blood Cell Count 4.47 X10^6/uL (4.0-5.2); Red Cell Distribution Width 18.7 % (11.6-14.8); White Blood Cell Count 13.5 X10^3/uL (4.5-11.0)
[2022-09-13] MEDS: LEVOTHYROXINE 25 MCG TABLET 75 MCG PO (06:58)
[2022-09-13 06:59] LABS: Blood Urea Nitrogen 35 mg/dL (7-17); Calcium 8.9 mg/dL (8.4-10.2); Carbon Dioxide 27 mmol/L (22-32); Chloride 106 mmol/L (98-107); Estimated Glomerular Filt Rate 31 mL/min (>60); Glucose 80 mg/dL (80-110); HEMOLYSIS < 15 (0-50); Sodium 139 mmol/L (137-145)
[2022-09-13 07:11] LABS: Troponin I 0.026 ng/mL (0.01-0.034)
[2022-09-13] MEDS: ONDANSETRON 4 MG ODT PO (07:35)
--- NOTE | 2022-09-13 07:41 | PM.PN.1 ---
Subjective Subjective Interval history: Family present with patient in room. I explained that other than some low BP and mildly elevated Cr we didn't find much to explain her acute weakness. It could have been that she was dehydrated and some IVF helped. They agreed that she can return to [facility] tomorrow. Exam Vital Signs (past 8 hours): - 09/13/22 05:37 Temperature 97.0 F L Pulse Rate 62 Respiratory Rate 18 Blood Pressure 119/61 Pulse Oximetry 99 Oxygen Delivery Method Room Air Narrative Exam Narrative: General:? Frail-appearing, thin delightful elderly female, in no distress at this time HEENT:? dry mucous membranes, normal sclera with reactive pupils, airway is patent.? Neck:? Minimal JVD, supple Respiratory:? Lung sounds are clear in all castro without any adventitious sounds Cardiac:? RRR without no murmurs, rubs or gallops Abdomen:? Soft, nontender, decreased bowel tones in all 4 quadrants, no CVA tenderness Skin:? Warm and dry, multiple bruising present various stages of healing to upper and lower extremities, noted significant abrasions to bilateral anterior lower extremities. Neurologic:? Globally weak but Grossly neurologically intact with no obvious asymmetries or abnormalities Extremities: warm dry, cracking skin, radial & pedal pulses intact, lower extremity chronic venous stasis changes, 2+ lower extremity edema bilaterally-patient baseline. Psych:? Patient is calm, mild cognitive impairment/confusion, poor historian-patient baseline. Objective Labs 09/13/22 06:26 09/13/22 06:26 Labs: Laboratory Results - last 24 hr 09/12/22 09/12/22 09/12/22 16:00 16:00 16:00 WBC 10.9 RBC 4.53 Hgb 13.9 Hct 41.4 MCV 91.4 MCH 30.6 MCHC 33.5 RDW 19.3 H Plt Count 234 Neut % (Auto) 80.6 H Lymph % (Auto) 15.7 L [place] % (Auto) 3.1 Eos % (Auto) 0.1 L Baso % (Auto) 0.5 Neut # (Auto) 8800 H Lymph # (Auto) 1700 [place] # (Auto) 300 Eos # (Auto) 0 Baso # (Auto) 100 Sodium 137 Potassium 5.2 H Chloride 109 H Carbon Dioxide 20 L BUN 35 H Creatinine 1.57 H Estimated GFR 34 L BUN/Creatinine Ratio 22.3 H Glucose 112 H Lactate Calcium 9.0 Magnesium Total Bilirubin 0.7 AST 34 ALT 33 Alkaline Phosphatase 89 Total Creatine Kinase < 20 L CK-MB (CK-2) TNP CK-MB (CK-2) Rel Index TNP Troponin I 0.021 NT-Pro-B Natriuret Pep 82792 H Total Protein 5.8 L Albumin 3.4 L Globulin 2.4 Albumin/Globulin Ratio 1.4 Lipase 263 Procalcitonin TSH Chlamy pneumoniae PCR Adenovirus (PCR) B. pertussis DNA (PCR) B.parapertussis DNA PCR Coronavirus OC43 (PCR) Coronavirus HKU1 (PCR) Coronavirus 229E (PCR) SARS-CoV-2 (PCR) Coronavirus NL63 (PCR) Human Metapneumovir PCR Influenza Type A (PCR) Influenza Type B (PCR) M. pneumoniae (PCR) Parainfluenza 1 (PCR) Parainfluenza 2 (PCR) Parainfluenza 3 (PCR) Parainfluenza 4 (PCR) RSV (PCR) Entero/Rhino (PCR) 09/12/22 09/12/22 09/12/22 17:11 18:23 18:23 WBC RBC Hgb Hct MCV MCH MCHC RDW Plt Count Neut % (Auto) Lymph % (Auto) [place] % (Auto) Eos % (Auto) Baso % (Auto) Neut # (Auto) Lymph # (Auto) [place] # (Auto) Eos # (Auto) Baso # (Auto) Sodium Potassium Chloride Carbon Dioxide BUN Creatinine Estimated GFR BUN/Creatinine Ratio Glucose Lactate Calcium Magnesium Total Bilirubin AST ALT Alkaline Phosphatase Total Creatine Kinase < 20 L CK-MB (CK-2) TNP CK-MB (CK-2) Rel Index TNP Troponin I 0.021 NT-Pro-B Natriuret Pep Total Protein Albumin Globulin Albumin/Globulin Ratio Lipase Procalcitonin TSH 0.154 L Chlamy pneumoniae PCR Adenovirus (PCR) B. pertussis DNA (PCR) B.parapertussis DNA PCR Coronavirus OC43 (PCR) Coronavirus HKU1 (PCR) Coronavirus 229E (PCR) SARS-CoV-2 (PCR) Negative Coronavirus NL63 (PCR) Human Metapneumovir PCR Influenza Type A (PCR) Influenza Type B (PCR) M. pneumoniae (PCR) Parainfluenza 1 (PCR) Parainfluenza 2 (PCR) Parainfluenza 3 (PCR) Parainfluenza 4 (PCR) RSV (PCR) Entero/Rhino (PCR) 09/12/22 09/12/22 09/12/22 18:23 18:23 23:30 WBC RBC Hgb Hct MCV MCH MCHC RDW Plt Count Neut % (Auto) Lymph % (Auto) [place] % (Auto) Eos % (Auto) Baso % (Auto) Neut # (Auto) Lymph # (Auto) [place] # (Auto) Eos # (Auto) Baso # (Auto) Sodium Potassium Chloride Carbon Dioxide BUN Creatinine Estimated GFR BUN/Creatinine Ratio Glucose Lactate Calcium Magnesium 2.3 Total Bilirubin AST ALT Alkaline Phosphatase Total Creatine Kinase CK-MB (CK-2) CK-MB (CK-2) Rel Index Troponin I NT-Pro-B Natriuret Pep Total Protein Albumin Globulin Albumin/Globulin Ratio Lipase Procalcitonin 0.11 TSH Chlamy pneumoniae PCR Not detected Adenovirus (PCR) Not detected B. pertussis DNA (PCR) Not detected B.parapertussis DNA PCR Not detected Coronavirus OC43 (PCR) Not detected Coronavirus HKU1 (PCR) Not detected Coronavirus 229E (PCR) Not detected SARS-CoV-2 (PCR) Not detected Coronavirus NL63 (PCR) Not detected Human Metapneumovir PCR Not detected Influenza Type A (PCR) Not detected Influenza Type B (PCR) Not detected M. pneumoniae (PCR) Not detected Parainfluenza 1 (PCR) Not detected Parainfluenza 2 (PCR) Not detected Parainfluenza 3 (PCR) Not detected Parainfluenza 4 (PCR) Not detected RSV (PCR) Not detected Entero/Rhino (PCR) Not detected 09/13/22 09/13/22 09/13/22 01:15 06:26 06:26 WBC 13.5 H RBC 4.47 Hgb 13.6 Hct 41.5 MCV 92.9 MCH 30.4 MCHC 32.8 RDW 18.7 H Plt Count 137 L Neut % (Auto) 62.4 Lymph % (Auto) 28.6 [place] % (Auto) 7.6 Eos % (Auto) 0.4 L Baso % (Auto) 1.0 Neut # (Auto) 8400 H Lymph # (Auto) 3800 [place] # (Auto) 1000 H Eos # (Auto) 100 Baso # (Auto) 100 Sodium 139 Potassium 4.0 D Chloride 106 Carbon Dioxide 27 BUN 35 H Creatinine 1.67 H Estimated GFR 31 L BUN/Creatinine Ratio 21.0 Glucose 80 Lactate 1.3 Calcium 8.9 Magnesium Total Bilirubin AST ALT Alkaline Phosphatase Total Creatine Kinase CK-MB (CK-2) CK-MB (CK-2) Rel Index Troponin I 0.026 NT-Pro-B Natriuret Pep Total Protein Albumin Globulin Albumin/Globulin Ratio Lipase Procalcitonin TSH Chlamy pneumoniae PCR Adenovirus (PCR) B. pertussis DNA (PCR) B.parapertussis DNA PCR Coronavirus OC43 (PCR) Coronavirus HKU1 (PCR) Coronavirus 229E (PCR) SARS-CoV-2 (PCR) Coronavirus NL63 (PCR) Human Metapneumovir PCR Influenza Type A (PCR) Influenza Type B (PCR) M. pneumoniae (PCR) Parainfluenza 1 (PCR) Parainfluenza 2 (PCR) Parainfluenza 3 (PCR) Parainfluenza 4 (PCR) RSV (PCR) Entero/Rhino (PCR) [facility] Medical History Atypical migraine Bilateral lower extremity edema Chicken pox (~1951) Chronic adrenal insufficiency Chronic anticoagulation Chronic back pain (~1964) Chronic diarrhea Chronic kidney disease Fecal incontinence (~2021) Headache (~2021) Hearing loss (~2011) History of DVT (deep vein thrombosis) History of kidney disease (~2002) Hyperlipidemia Hypertension Interstitial lung disease Irritable bowel syndrome (~2012) Measles (~1951) Mixed hyperlipidemia Mumps (~1951) 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 Stage 3b chronic kidney disease (CKD) Uses walker Venous (peripheral) insufficiency Surgical History (Updated 09/13/22 @ 00:12 by LORENE Andino) Anesthesia History of back surgery (~2012) History of left heart catheterization (LHC) History of throat surgery (~1974) Family History Father Cancer History of heart disease Mother Hypertension Social History household members: spouse Smoking Status: Never smoker alcohol intake: current Assessment & Plan Assessment & Plan narrative: Global weakness, deconditioning, acute on chronic, with possible dehydration, present on admission -patient is sent from sound view due to requiring 2 patient assist for transfers, worsening global weakness. On admit exam I found the patient to be hypovolemic, no signs of exacerbation of heart failure, no shortness of breath. -of initiated further workup to rule out infectious process. This may just be further deconditioning due to recent and frequent hospitalizations and health complications. -patient did not meet SIRS criteria in ED, Sofa score: 2 : PaO2: 86, GCS 14, creatinine 1.57. -ordered blood & urine culture, respiratory panel, procalcitonin, wound culture from lower leg wounds-recent lac repair. 08/2022. -PT/OT/A[facility] DUSTER consulted -strict fall precautions -IVF seems to helped and patient now feels better Frequent falls, chronic, present on admission -Frequent emergency department visits and admissions -see above -PT/OT eval September 12, 2022 [place] [facility]-admit August 18- August 23, 2022 [facility] for heart catheterization/admit August 18, 2022 [facility] chest pain- transferred to [facility] August 10 ground level fall on thinners [place] [facility]-admit July 29, 2022 [place] [facility] July 08, 2022 [place] [facility] back pain April 29, 2022 [place] fall on blood thinners head injury March 08, 2022 [facility] weakness and dizzy March 01, 2022 [place] [facility] tachycardia Cognitive impairment/Decline versus encephalopathy, acute on chronic, present on admission -believe that patient's cognitive impairment is her baseline likely Dementia but unclear as patient has been seriously ill on previous hospitalizations. -patient unable to contribute to HPI, ROS, medication reconciliation -will rule out infectious process Congestive heart failure, with cardiomyopathy, chronic, present on admission -I personally reviewed: Last echo 08/22/2022 EF 35-40%, LVEF has decreased since prior study, moderate global hypokinesis of the left ventricle, significant dyssynchronous contraction pattern consistent with conduction abnormality. -on exam patient hypovolemic, mucus membranes/skin dry, lung sounds are clear, no SOB/tachypnea, 02sat 96-99%on rmair, bilateral lower extremity lymphedema at baseline, no signs of CHF exacerbation, we will continue to monitor. -history of NSTEMI believed to be secondary to COVID-19 infection 08/20/2022, with left vent heart catheterization -low-sodium diet -monitor electrolytes -monitor for fluid overload/respiratory distress Lymphedema, chronic, present on admission -bilateral lower extremity nonpitting, +2 edema- baseline -monitor for worsening lymphedema Hypertension, essential, acute on chronic, present on admission -continue metoprolol 50mg XL daily -temporary bridge covered: metoprolol 5 mg IV for coverage:? Give for >30min sustained SBP>180,DBP>100,HR>110 (cautious of low heart rate) History of DVT on chronic anticoagulation, chronic, present on admission - now off warfarin due to frequent falls - patient may not be the best candidate to continue with anticoagulation. 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 Malnutrition, mild, acute, present on admission -previous BMI 28, BMI 08/2022-23.5, Today BMI 23 -patient's malnutrition places them at high risk for medical and surgical complications in relation to acute illness/chronic illness.? This increases the difficulty in complexity of medical management and increases the chances poor outcomes such as mortality and morbidity as well as impaired wound healing, and immune suppression. Hypothyroidism, acquired, chronic, present on admission -continue levothyroxine -Ordered TSH: 0.154 - decreased dosage 100 to 75mcg-repeat TSH in 6 weeks ? Atypical migraine, chronic, present on admission -continue Topiramate, Depression, chronic, present on admission -continue sertraline Code: Full PCP [place] Sur[facility]: Bill Jennyfer, spouse DVT/VTE: Lovenox & SCD's Disposition:?Back to [facility] on 09/14. Quality VTE Deep Vein Thrombosis/Pulmonary Embolism Present on Admission: No
[2022-09-13] MEDS: PANTOPRAZOLE DR 20 MG TABLET PO (08:05)
[2022-09-13] MEDS: predniSONE 5 MG TABLET PO (08:06)
[2022-09-13] MEDS: POTASSIUM CHLORIDE 20 MEQ TAB PO (08:06)
[2022-09-13] MEDS: ENOXAPARIN 30 MG/0.3 ML SYRINGE SUBCUT (08:16)
[2022-09-13] MEDS: ASPIRIN 81 MG CHEW TAB PO (08:17)
[2022-09-13] MEDS: CITALOPRAM 10 MG TABLET PO (08:17)
[2022-09-13] MEDS: METOPROLOL ER 50 MG TABLET 100 MG PO (08:17)
[2022-09-13] MEDS: SERTRALINE 50 MG TABLET 100 MG PO (08:17)
[2022-09-13] MEDS: FUROSEMIDE 20 MG/2 ML VIAL IV (08:18)
[2022-09-13] MEDS: SODIUM CHLORIDE 0.9% FLUSH 10 ML IV (08:19)
--- NOTE | 2022-09-13 10:10 | PT.IIE ---
Surgical History (Last Updated 09/13/22 @ 00:[address] [facility]) Anesthesia History of back surgery (~2012) History of left heart catheterization (LHC) History of throat surgery (~1974) Medical History (Last Reviewed 09/13/22 @ 00:44 by Nasim Burgos DO) Atypical migraine Bilateral lower extremity edema Chicken pox (~1951) Chronic adrenal insufficiency Chronic anticoagulation Chronic back pain (~1964) Chronic diarrhea Chronic kidney disease Fecal incontinence (~2021) Headache (~2021) Hearing loss (~2011) History of DVT (deep vein thrombosis) History of kidney disease (~2002) Hyperlipidemia Hypertension Interstitial lung disease Irritable bowel syndrome (~2012) Measles (~1951) Mixed hyperlipidemia Mumps (~1951) 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 Stage 3b chronic kidney disease (CKD) Uses walker Venous (peripheral) insufficiency Physical Therapy Inpatient Evaluation/Re-Eval M1 PT/OT-IP Prior Functional Status Start: 09/13/22 12:28 Freq: NEEDED Status: Active Protocol: Document 09/13/22 10:10 AB (Rec: 09/13/22 12:41 AB [id number]) Medical Review Prior Functional Status Medical History Reviewed Yes Communication able to make needs known Mobility and Gait pt has been in/out of the hospital since july of this year. pt has been at [facility] since july hospital d/c. prior to july' s hospitalization, pt was modified independent with alll mobilities and ambulation using 4WW for indoor mobility but uses a w/c for long distances due to h/o back pain . pt stated that she needs one person assist at [facility] and that she is able to walk but not much due to fatigue Social History Household Members spouse Living Arrangements House Number of Floors (Floors) One Floor Number of Stairs To Enter/Railing? ramp to enter Home Environment Standard Height Toilet,Tub/ Shower Home Equipment Four Wheel Walker,Manual Wheelchair,Bedside Commode,Tub Transfer Bench,Hand Held Shower,Grab Bars In Shower M2 PT-IP Current Condition Start: 09/13/22 12:28 Freq: NEEDED Status: Active Protocol: Document 09/13/22 10:10 AB (Rec: 09/13/22 12:41 AB [email or web address]) Physical Therapy Current Condition Current Condition Evaluation Date 09/13/22 Treatment Diagnosis CHF; difficulty in walking Onset Date 09/12/22 M3 PT-IP Subjective Start: 09/13/22 12:28 Freq: NEEDED Status: Active Protocol: Document 09/13/22 10:10 AB (Rec: 09/13/22 12:41 AB [id number]) Subjective Physical Therapy Visit Type Type Initial Evaluation Visit Start Time 10:10 Visit Stop Time 10:42 Total Visit Minutes 32 Number of ENGINE PILOT Visits 0 Physical Therapy Visit Comments Patient Comments agreeable to do PT M4 PT-IP Mobility and Gait Start: 09/13/22 12:28 Freq: NEEDED Status: Active Protocol: Document 09/13/22 10:10 AB (Rec: 09/13/22 12:41 AB [id number]) PT-Bed Mobility Assessment Supine to Sit Supine to Sit Standby Assistance,Head of Bed Elevated,Bedrails PT-Transfer Assessment Sit to and From Stand Sit to and from Stand Minimal Assistance,1 Person Assistance,Use of Upper Extremities Equipment Transfer Assistive Device Gait Belt,Front Wheeled Walker Orthotic/Prosthetic Devices or Brace: No Transfers Transfer Destination Chair Transfer Technique Stand Step Pivot Transfer Ability Level of Assist Minimal Assistance,1 Person Assistance,Use of Upper Extremities Comments Mobility Comments pt agreeable to do PT. BP in supine: 100/41, checked again : 102/38. informed nurse regarding low diastolic. pt agreed to sit up and completed supine to sit SBA with HOB elevated ~ 25 deg. pt used bed rail to assist. pt able to sit on EOB SBA. c/o slight dizziness. BP checked: 91/43. completed sit to stand min A and able to step transfer to chair using FWW min A. positioned pt on the chair. BP checked: 93/39. nurse informed. stated that pt received an extended release metoprolol affecting BP. call light and table place within pt's reach. Gait Assessment Comments Gait Comments did not complete due to low BP PT-Balance Assessment Sitting Balance and Reactions Static Sitting Balance Ability Normal Dynamic Sitting Balance Ability Good Standing Balance and Reactions Static Standing Balance Ability Fair Dynamic Standing Balance Ability Fair Device Used FWW M5 PT-IP Objective Assessments Start: 09/13/22 12:28 Freq: NEEDED Status: Active Protocol: Document 09/13/22 10:10 AB (Rec: 09/13/22 12:41 AB [id number]) Orientation Orientation/Cognition Level of Alertness Alert Orientation Name,Place,Situation Language Function Ability Hard of Hearing Safety Awareness Decreased Safety Awareness Memory Description Short Term Impaired Gross Range of Motion Lower Extremity ROM Assessment Within Functional Limits Strength Lower Extremity Strength Assessment Right Impaired Hip 3+/5 Knee 4-/5 Muscle Tone Muscle Tone WNL Yes M6 PT-IP Treatment Start: 09/13/22 12:28 Freq: NEEDED Status: Active Protocol: Document 09/13/22 10:10 AB (Rec: 09/13/22 12:41 AB [id number]) Physical Therapy Treatment Education Education Provided Safety M7 PT-IP Assessment and Plan Start: 09/13/22 12:28 Freq: NEEDED Status: Active Protocol: Document 09/13/22 10:10 AB (Rec: 09/13/22 12:41 AB [email or web address]) PT Summary Assessment and Plan Potential Rehabilitation Potential Fair Status of Condition at Evaluation Evolving Summary Impairments Pain,ROM,Strength,Balance, Coordination,Sensation,Tone, Cognition,Bed Mobility, Transfers,Gait,Activity Tolerance Assessment Summary Pt admitted for CHF. pt currently requiring min A for transfers using FWW but ambulation not conducted due to low BP. pt plans to go back to SNF rehab to improve overall strength and mobility independence. Goals Bed Mobility Goal Independent Transfer Goal Independent,Front Wheeled Walker Gait Goal Independent,Front Wheel Walker Gait Distance 50 Other Goals improve transfers and ambulation using 4WW 75 ft SBA Days to Meet Goals 10 Frequency of Treatment Frequency Of Treatment Once a Day Treatment Plan Physical Therapy Treatment Plan Bed Mobility Training,Transfer Training,Gait Training, Therapeutic Exercise,Balance Retraining,Discharge Planning, Hot or Cold Pack,Neuromuscular Re-ed,Coordination Retraining Precautions Other Precautions BP Recommendations To Nursing Amount of Assist Needed 1 Person Assist Discharge Recommendations PT Discharge Recommendations SNF Rehab Transportation Needs at Discharge Private Vehicle,Wheelchair/ Cabulance
--- NOTE | 2022-09-13 11:39 | OT.IP.EVAL ---
Past Medical History (Last Reviewed 09/13/22 @ 00:44 by Nasim Burgos DO) Atypical migraine Bilateral lower extremity edema Chicken pox (~1951) Chronic adrenal insufficiency Chronic anticoagulation Chronic back pain (~1964) Chronic diarrhea Chronic kidney disease Fecal incontinence (~2021) Headache (~2021) Hearing loss (~2011) History of DVT (deep vein thrombosis) History of kidney disease (~2002) Hyperlipidemia Hypertension Interstitial lung disease Irritable bowel syndrome (~2012) Measles (~1951) Mixed hyperlipidemia Mumps (~1951) 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 Stage 3b chronic kidney disease (CKD) Uses walker Venous (peripheral) insufficiency Surgical History (Last Updated 09/13/22 @ 00:12 by CRISTI Andino-) Anesthesia History of back surgery (~2012) History of left heart catheterization (LHC) History of throat surgery (~1974) Occupational Therapy Inpatient Evaluation/Re-Eval M1 PT/OT-IP Prior Functional Status Start: 09/13/22 12:28 Freq: NEEDED Status: Active Protocol: Document 09/13/22 10:10 AB (Rec: 09/13/22 12:41 [id number]) Medical Review Prior Functional Status Medical History Reviewed Yes Communication able to make needs known Mobility and Gait pt has been in/out of the hospital since July of this year. pt has been at [facility] since July hospital d/c. prior to July' s hospitalization, pt was modified independent with all mobilities and ambulation using 4WW for indoor mobility but uses a w/c for long distances due to h/o back pain . pt stated that she needs one person assist at [facility] and that she is able to walk but not much due to fatigue Social History Household Members spouse Living Arrangements House Number of Floors (Floors) One Floor Number of Stairs To Enter/Railing? ramp to enter Home Environment Standard Height Toilet,Tub/ Shower Home Equipment Four Wheel Walker,Manual Wheelchair,Bedside Commode,Tub Transfer Bench,Hand Held Shower,Grab Bars In Shower M1 PT/OT-IP Prior Functional Status Start: 09/13/22 12:34 Freq: NEEDED Status: Active Protocol: Document 09/13/22 11:10 [facility] (Rec: 09/13/22 13:10 [facility] [id number]) Medical Review Prior Functional Status Communication Independent Mobility and Gait Use of FWW at [facility]. Prior at home pt used 4ww and wc for longer distances. Pt' s states when pt at home did not get up much except for use of the bathroom. Activities of Daily Living and IADL's Pt's assists with clothing during toileting needs. Since pt recent fall has been needing more assist as having difficulty to use her left UE. Social History Household Members spouse Living Arrangements House Number of Stairs To Enter/Railing? ramp to enter Home Environment Standard Height Toilet,Tub/ Shower Home Equipment Four Wheel Walker,Manual Wheelchair,Bedside Commode,Tub Transfer Bench,Grab Bars In Shower Additional Social History Comment Pt prior to admission at [facility] as has NSTEMI 08/18/22. M2 OT-IP Current Condition Start: 09/13/22 12:34 Freq: Status: Active Protocol: Document 09/13/22 11:10 [facility] (Rec: 09/13/22 13:10 [facility] [id number]) Occupational Therapy Current Condition Current Condition Evaluation Date 09/13/22 Treatment Diagnosis Global weakness, decreased mobility Diagnosis Onset Date 09/12/22 M3 OT- IP Subjective and Pain Start: 09/13/22 12:34 Freq: Status: Active Protocol: Document 09/13/22 11:10 [facility] (Rec: 09/13/22 13:10 [facility] [id number]) OT- Subjective Occupational Therapy Visit Type Type Initial Evaluation Visit Start Time 11:10 Visit Stop Time 11:39 Total Visit Minutes 29 Occupational Therapy Visit Comments Patient Comments Pt wanting to get back bed. Patient/Caregiver Goals To get better. OT Pain Assessment Pain When Pain Assessed At Rest Pain Present Pain Present Pain Reported Location Right Hip Intensity 4 Scale Used Numeric (0 - 10) M4 OT- IP ADL's Start: 09/13/22 12:34 Freq: Status: Active Protocol: Document 09/13/22 11:10 [facility] (Rec: 09/13/22 13:10 [facility] [id number]) OT LFD-Cgze-Dxpcbiw General Evaluation Areas Needing Assistance Cutting Food,Opening Containers Comments OT Self-Feeding Comments Pt states having more difficulty to use her left hand to eat with due to weakness and pain due to recent falls. Pt is left handed. OT ADL-Grooming Comments OT Grooming Comments Not performed. OT ADL-Oral Care Comments Oral Care Comments Not peformed due to low BP. OT ADL-Toileting Comments OT Toileting Comments Pt has been using Purewick. Per pt's has been having to assist pt to help pull up her brief due to having more difficulty since her recent falls and not being able to use her left arm as well as before. Pt's states due to his bad back has to lie on the floor of the bathroom so able to assist pt to pull up her brief. OT ADL-Bathing Comments OT Bathing Comments Not performed. M5 OT- IP IADL's Start: 09/13/22 12:34 Freq: Status: Active Protocol: Document 09/13/22 11:10 [facility] (Rec: 09/13/22 13:10 [facility] [id number]) OT-Instrumental Activities of Daily Living Deficits IADL Deficits Identified No Deficits Medication Management Medication Management Caregiver Administers Money Management Money Management Caregiver Provides Assistance Meal Preparation Meal Preparation Caregiver Provides Assist Fire Tender Fire Tender Caregiver Provides Assist Driving Driving Concerns Identified Regarding Safety M6 OT- IP Functional Cognition Start: 09/13/22 12:34 Freq: Status: Active Protocol: Document 09/13/22 11:10 [facility] (Rec: 09/13/22 13:10 [facility] [id number]) Cognitive Factors Limiting Selfcare Function Cognitive Ability Level of Alertness Alert Patient Orientation Name,Place,Situation Attention Span Ability Capable of Focused Attention, Capable of Sustained Attention Ability to Follow Commands Able to Follow One Step Commands Cognitive Comments Cognitive Assessment Comments Pt able to follow commands for mobility needs. OT- Vision and Hearing OT- Hearing Assessment OT- Hearing Assessment Hearing Impaired OT- Vision Assessment Visual Acuity Glasses For Reading Visual Attentiveness WFL Occular Pursuits WFL Visual Convergence WFL Visual Hurley WFL M7 OT- IP Mobility and Balance Start: 09/13/22 12:34 Freq: Status: Active Protocol: Document 09/13/22 11:10 [facility] (Rec: 09/13/22 13:10 [facility] [id number]) OT- Bed Mobility Assessment Sit to Supine Sit to Supine Assist Minimal Assistance OT-Transfer Assessment Sit to and From Stand Sit to and from Stand Moderate Assistance Transfers Transfer Ability Moderate Assistance Technique Transfer Destination Bed,Chair Transfer Technique Stand Step Pivot Devices Transfer Assistive Devices Gait Belt,Front Wheeled Walker Comments Mobility Comments Pt having low BP 93/49 and wanting to get back to bed, able to stand with MODA x1 to FWW and needing assist for her balance and to guide the FWW. Pt needing ARA to help get her legs back into bed. OT- Balance Assessment Sitting Balance and Reactions Static Sitting Balance Ability Good Dynamic Sitting Balance Ability Fair Standing Balance and Reactions Static Standing Balance Ability Fair Dynamic Standing Balance Ability Poor M8 OT- IP Objective Assessments Start: 09/13/22 12:34 Freq: Status: Active Protocol: Document 09/13/22 11:10 [facility] (Rec: 09/13/22 13:10 [facility] [id number]) OT Gross Range of Motion Upper Extremity Range of Motion Assessment Left Impaired OT Strength Upper Extremity Strength Assessment Left Impaired Comments Strength Comments LUE 3-/5 to 4-/5 from proximal to distal. OT- Coordination Assessment Upper Extremity Finger to Nose Test Left UE Impaired OT Sensation Assessment Comments Summary Comments Intact for light touch M9 OT- IP Assessment and Plan Start: 09/13/22 12:34 Freq: Status: Active Protocol: Document 09/13/22 11:10 [facility] (Rec: 09/13/22 13:10 [facility] [id number]) OT Summary Assessment and Plan Potential Rehabilitation Potential Good Analytic Complexity at Evaluation Moderate Summary OT Impairments Pain,Strength,Balance, Functional Cognition, Functional Mobility,Self- Feeding,Grooming,Dressing, Toileting,Bathing,Toilet Transfers,Shower Transfers, Activity Tolerance Progress Towards Goals Slow Progress due to Pain,Slow Progress due to Medical Issues,Slow Progress due to Activity Tolerance Assessment Summary Pt MOD complexity and main barriers are decreased activity tolerance and pain for right hip and left shoulder. Pt needing MODA for transfer at this time with FWW and having low BP. Pt to return to skilled rehab when medically stable. Goals Self-Feeding Goal Independent Grooming Goal Independent Dressing Goal Minimal Assistance Toileting Goal Minimal Assistance Bathing Goal Minimal Assistance Toilet Transfer Goal Independent Shower Transfer Goal Standby Assistance Days to Meet Goals 20 Frequency of Treatment Frequency Of Treatment Once a Day Treatment Plan OT Treatment Plan ADL Training,Functional Mobility,Patient/Family Education,Discharge Planning Other Treatment Recommendations and Next Stand at sink for grooming Treatment Focus needs with CGA. Discharge Recommendations OT Discharge Recommendations SNF Rehab Transportation Needs at Discharge Private Vehicle,Wheelchair/ Cabulance
[2022-09-13] MEDS: ACETAMINOPHEN 325 MG TABLET 650 MG PO ×2 (11:55→17:47)
[2022-09-13] MEDS: LIDOCAINE PATCH 1 EACH ADH..PATCH TOP (11:55)
--- NOTE | 2022-09-13 13:36 | CM.DANOTE ---
Initial DCP Assessment Note Patient is a 76 yo female, lives at home w/spouse typically but has been at [facility] off and on since July 2022. This is patient's third admission to since July Patient w/ multiple co-morbidities presents with weakness, frequent falls, CHF exacerbation PCP Jamir Garcia, Dr Lawrence manages medical care at [facility] Payer MCR/[employer] Met w/spouse Bill this morning, daughter Renae, a local [employer]ERILE SUPPLY TECHNICIAN is currently working. Introduced role. Spouse expects that patient will return to [facility] today or tomorrow Patient typically lives at home w/spouse and is eager to return home as soon as she can, patient is not A+O this visit but does make good eye contact and appears in good spirits Spouse Bill concerned the most this visit about patient's INPT vs OBS status, UR IVONNE Bella kindly agreed to visit w/spouse to educate on this topic Placed call to September at [facility] who explained patient remains on her SNF MCR benefit and okay to discharge back when medically cleared for DC. No PASRR needed unless there are major med changes Dr Flores wants to discuss POC w/spouse this afternoon so arranged a family conference at bedside for 1500 Plan: Anticipate discharge tomorrow back to [facility] via w/c NHAN Dill Discharge Planning/Care Management CM Discharge Assessment Start: 09/13/22 13:22 Freq: Status: Active Protocol: Document 09/13/22 13:22 [facility] (Rec: 09/13/22 13:36 [id number]) Discharge Planning Assessment Assigned Piano Regulator NHAN Gardner DPOA/Assigned Designee Name Jabari Burger spouse Contact Information [phone] Advance Directives? No History Provided By Patient,Significant Other, Medical Record Prior Living Arrangements House Comment Patient has been at [facility] since July but has been back and forth from . September at [facility] says patient can admit back under her MCR benefit Household Members spouse Type of transportation used prior to Relies on Others admit Facility Name Admitted From: [facility] Willing to Return to Facility? Yes: Spouse agreeable to return to [facility] Independent with ADL's No Is patient alert and oriented? No Needs Assistance With Bathing,Grooming,Meal Prep, Toileting,Managing Medications ,Home Chores / Shopping Comment FWW, wheelchair Patient/Family Preference Detention Facility Barriers to Discharge No Discharge Plan Detention Facility Transportation Arrangement Facility Referrals Initiated Other Additional Comment Patient came from [facility], spouse wants patient to return If patient plan is SNF: Has PASSR been No: [facility] as long as no changes
[2022-09-13] MEDS: OXYCODONE IR 5 MG TABLET PO ×2 (13:58→17:45)
[2022-09-13] MEDS: SODIUM CHLORIDE 0.9% 1,000 ML 75 ML IV ×2 (17:50→23:47)
[2022-09-13] MEDS: ATORVASTATIN 20 MG TABLET 10 MG PO (22:07)
[2022-09-14 04:00] VITALS: BP 119/60; PULSE 62; RESP 20; TEMP 36.1; O2SAT 98
[2022-09-14] MEDS: LEVOTHYROXINE 100 MCG TABLET PO (05:56)
[2022-09-14] MEDS: PANTOPRAZOLE DR 20 MG TABLET PO (05:56)
[2022-09-14 06:46] LABS: BUN Creatinine Ratio 21.7 (6-22); Blood Urea Nitrogen 41 mg/dL (7-17); Carbon Dioxide 24 mmol/L (22-32); Chloride 107 mmol/L (98-107); Estimated Glomerular Filt Rate 27 mL/min (>60); Glucose 83 mg/dL (80-110); Sodium 135 mmol/L (137-145)
[2022-09-14 06:54] LABS: HEMOLYSIS 70 (0-50)
[2022-09-14 06:55] LABS: Potassium 4.6 mmol/L (3.4-5.1)
[2022-09-14 08:00] VITALS: BP 106/52; BP 114/56; BP 149/94; BP 88/46; PULSE 107; PULSE 55; PULSE 69; PULSE 88; RESP 18; TEMP 36.2; O2SAT 100
[2022-09-14 08:10] LABS: NT-proBNP (BNP-Adult 18+) 7310 pg/mL (<450)
[2022-09-14] MEDS: POTASSIUM CHLORIDE 20 MEQ TAB PO (08:25)
[2022-09-14] MEDS: OXYCODONE IR 5 MG TABLET PO ×3 (08:25→17:20)
[2022-09-14 08:26] VITALS: PULSE 92
[2022-09-14] MEDS: ASPIRIN 81 MG CHEW TAB PO (08:26)
[2022-09-14] MEDS: METOPROLOL ER 50 MG TABLET PO (08:26)
[2022-09-14] MEDS: predniSONE 5 MG TABLET PO (08:26)
[2022-09-14] MEDS: ENOXAPARIN 30 MG/0.3 ML SYRINGE SUBCUT (08:26)
[2022-09-14] MEDS: SODIUM CHLORIDE 0.9% FLUSH 10 ML IV ×2 (08:29→23:00)
[2022-09-14 09:15] VITALS: PULSE 85
--- NOTE | 2022-09-14 10:16 | P.DS_ITS ---
History of Present Illness History of Present Illness Date Patient Seen: 09/14/22 Time Patient Seen: 09:00 Chief complaint: CHF exac Narrative: Per admitting provider, Christine Burger (Lorraine) is a bashir 76 year-old patient with a history of hypertension, hyperlipidemia, chronic hip pain, autoimmune disease, chronic kidney disease stage 4, hypothyroidism, reflux, prior DVT currently anticoagulated on Coumadin, bilateral lower extremity lymphedema, Frequent falls, chronic spondylosis/lumbar stenosis with acute sacral insufficiency f ractures bilaterally secondary to pathological fractures from osteoporosis, L2 compression fracture, prior lumbar laminectomy,? right hip arthroplasty, LLE venous insufficiency, pulmonary fibrosis, fequent falls, cognitive impairment, had been transferred from [facility] to [facility] for heart catheterization on 08/18/2022 for NSTEMI, and new diagnosis of heart failure w/cardiomyopathy was d/c to [facility]. Patient was sent over from [facility] due to increasing body aches and weakness, patient requiring 2 person assist for transfers over the past week. Patient was slightly tachypneic in ED respiratory rate 26-28. On admit exam patient mildly confused which is I believe her baseline, based on my personal experience with patient with previous admits. Patient is a poor historian and unable to accurately contribute to ROS or HPI. On admit exam patient denies any symptoms other than her chronic low back pain, but when questioned further she then denies pain. Patient verbalized that she is been living at home with her she has in fact been staying at [facility] following discharge from [facility]. She is found to be normotensive and in no distress at this time. Patient is hemodynamically stable BP 133/91, 82, 12, 96% on room air. Patient has no white count does absolute neutrophils 8800, potassium 5.2, chloride 109, bicarb 20, BUN 35, creatinine 1.57, GFR 34-patient's renal function is at baseline for CKD stage 4. Patient had not been prescribed Lasix as an outpatient due to CKD stage 4. Troponin negative-0.021, I personally reviewed EKG sinus rhythm 90, with PACs, low-voltage QRS possible anteriorseptal infarct, unchanged from previous EKG 08/18/2022. BNP 10,000, lipase 263, urinalysis negative, CTA: negative for PE. Patient admitted for CHF exacerbation. Discharge Providers Provider Date of admission: 09/12/22 20:55 Discharge Date: 09/14/22 Primary care physician: Jamir Garcia MD Consults: 09/12/22 21:13 Consult to Discharge Planning Routine Comment: Consult to Occupational Therapy Evaluate & Treat Comment: weakness/2 person assist Physician Instructions: Evaluate and treat Consult to Physical Therapy Evaluate & Treat Comment: weakness/2 person assist Physician Instructions: Evaluate and Treat 09/13/22 01:15 Consult to INNER LAYER SCRUBBER TENDER - Club Manager Routine Comment: placement evaluation/needs -likely dementia INNER LAYER SCRUBBER TENDER Consult needed for:: Community Health Res Need 09/14/22 09:00 Consult to Home Health Routine Comment: Reason For Exam: weakness Discharge provider: Toby Mullins DO Summary Hospital Course Discharge Diagnosis: Global weakness, deconditioning, acute on chronic, with possible dehydration, present on admission -patient is sent from [facility] due to requiring 2 patient assist for transfers, worsening global weakness.? On admit exam I found the patient to be hypovolemic, no signs of exacerbation of heart failure, no shortness of breath. -of initiated further workup to rule out infectious process.? This may just be further deconditioning due to recent and frequent hospitalizations and health complications. -patient did not meet SIRS criteria in ED, Sofa score: 2 :? PaO2: 86, GCS 14, creatinine 1.57. -ordered blood & urine culture, respiratory panel, procalcitonin, wound culture from lower leg wounds-recent lac repair. 08/2022. -PT/OT/INNER LAYER SCRUBBER TENDER consulted -strict fall precautions -IVF seems to helped and patient now feels better Frequent falls, chronic, present on admission -Frequent emergency department visits and admissions -see above -PT/OT eval September 12, 2022 [facility]-admit August 18- August 23, 2022? [facility] for heart catheterization/admit August 18, 2022 [facility] chest pain- transferred to [facility] August 10 ground level fall on thinners [facility]-admit July 29, 2022 [facility] July 08, 2022 [facility] back pain April 29, 2022 [facility] fall on blood thinners head injury March 08, 2022 [facility] weakness and dizzy March 01, 2022 [facility] tachycardia Cognitive impairment/Decline versus encephalopathy, acute on chronic, present on admission -believe that patient's cognitive impairment is her baseline likely Dementia but unclear as patient has been seriously ill on previous hospitalizations. -patient unable to contribute to HPI, ROS, medication reconciliation -will rule out infectious process Congestive heart failure, with cardiomyopathy, chronic, present on admission -I personally reviewed: Last echo 08/22/2022 EF 35-40%, LVEF has decreased since prior study, moderate global hypokinesis of the left ventricle, significant dyssynchronous contraction pattern consistent with conduction abnormality. -on exam patient hypovolemic, mucus membranes/skin dry,? lung sounds are clear, no SOB/tachypnea, 02sat 96-99%on rmair, bilateral lower extremity lymphedema at baseline, no signs of CHF exacerbation, we will continue to monitor. -history of NSTEMI believed to be secondary to COVID-19 infection 08/20/2022, with left vent heart catheterization -low-sodium diet -monitor electrolytes -monitor for fluid overload/respiratory distress Lymphedema, chronic, present on admission -bilateral lower extremity nonpitting, +2 edema- baseline -monitor for worsening lymphedema Hypertension, essential, acute on chronic, present on admission -continue metoprolol 50mg XL daily -temporary bridge covered: metoprolol 5 mg IV for coverage:? Give for >30min sustained SBP>180,DBP>100,HR>110 (cautious of low heart rate) History of DVT on chronic anticoagulation, chronic, present on admission - now off warfarin due to frequent falls - patient may not be the best candidate to continue with anticoagulation. 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 Malnutrition, mild, acute, present on admission -previous BMI 28, BMI 08/2022-23.5, Today BMI 23 -patient's malnutrition places them at high risk for medical and surgical complications in relation to acute illness/chronic illness.? This increases the difficulty in complexity of medical management and increases the chances poor outcomes such as mortality and morbidity as well as impaired wound healing, and immune suppression. Hypothyroidism, acquired, chronic, present on admission -continue levothyroxine -Ordered TSH: 0.154 - decreased dosage 100 to 75mcg-repeat TSH in 6 weeks ? Atypical migraine, chronic, present on admission -continue Topiramate, Depression, chronic, present on admission -continue sertraline Exam Vital Signs (past 8 hours): - 09/14/22 04:00 09/14/22 08:26 09/14/22 08:00 Temperature 97.0 F L 97.2 F L Pulse Rate 62 92 H 88 Pulse Rate [Orthostatic Lying] Pulse Rate [Orthostatic Sitting] Pulse Rate [Orthostatic Standing] Respiratory Rate 20 18 Blood Pressure 119/60 106/52 L Blood Pressure [Orthostatic Lying] Blood Pressure [Orthostatic Sitting] Blood Pressure [Orthostatic Standing] Pulse Oximetry 98 100 Oxygen Flow Rate 0 09/14/22 08:00 Temperature Pulse Rate Pulse Rate [Orthostatic Lying] 107 H Pulse Rate [Orthostatic Sitting] 69 Pulse Rate [Orthostatic Standing] 55 L Respiratory Rate Blood Pressure Blood Pressure [Orthostatic Lying] 149/94 H Blood Pressure [Orthostatic Sitting] 114/56 L Blood Pressure [Orthostatic Standing] 88/46 L Pulse Oximetry Oxygen Flow Rate Oxygen Delivery Method Room Air Oxygen Flow Rate 0 Objective Labs 09/13/22 06:26 09/14/22 06:06 Labs: Laboratory Results - last 24 hr 09/14/22 09/14/22 06:06 07:00 Sodium 135 L Potassium 4.6 Chloride 107 Carbon Dioxide 24 BUN 41 H Creatinine 1.89 H Estimated GFR 27 L BUN/Creatinine Ratio 21.7 Glucose 83 Calcium 8.0 L NT-Pro-B Natriuret Pep 7310 H [facility] Medical History Atypical migraine Bilateral lower extremity edema Chicken pox (~1951) Chronic adrenal insufficiency Chronic anticoagulation Chronic back pain (~1964) Chronic diarrhea Chronic kidney disease Fecal incontinence (~2021) Headache (~2021) Hearing loss (~2011) History of DVT (deep vein thrombosis) History of kidney disease (~2002) Hyperlipidemia Hypertension Interstitial lung disease Irritable bowel syndrome (~2012) Measles (~1951) Mixed hyperlipidemia Mumps (~1951) 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 Stage 3b chronic kidney disease (CKD) Uses walker Venous (peripheral) insufficiency Surgical History (Updated 09/13/22 @ 00:12 by CRISTI Andino-) Anesthesia History of back surgery (~2012) History of left heart catheterization (LHC) History of throat surgery (~1974) Family History Father Cancer History of heart disease Mother Hypertension Social History household members: spouse Smoking Status: Never smoker alcohol intake: current Discharge Plan Discharge Plan Patient Disposition: Home Discharge orders & Medications Prescriptions: No Action potassium chloride 20 mEq tablet,ER particles/crystals 20 meq PO DAILY lidocaine [Lidoderm] 5 % adhesive patch,medicated 1 patch topical DAILY PRN (Reason: back pain) Qty: 30 0RF Rx Instructions: leave on most painful area for up to 12 hrs citalopram 10 mg tablet 10 mg PO DAILY metoprolol succinate 100 mg tablet extended release 24 hr 100 mg PO DAILY simvastatin 10 mg tablet 10 mg PO DAILY prednisone 5 mg tablet PO levothyroxine 100 mcg tablet 100 mcg PO DAILY pantoprazole 40 mg tablet,delayed release (DR/EC) 40 mg PO DAILY Jardiance 25 mg tablet 12.5 mg PO DAILY aspirin 81 mg Capsule 81 mg PO DAILY polyethylene glycol 3350 17 gram powder in packet 17 gram PO DAILY PRN (Reason: Constipation) Follow up/Referrals: Jamir Garcia MD [Primary Care Provider] - Visit Report/Discharge Packet Stand Alone Forms: Patient Portal/API, Stroke Signs & Symptoms Discharge Data Primary Care Provider: Jamir Garcia V Attending Provider: Beverley Pendleton Admit Date/Time: 09/12/22 20:55 Quality VTE Deep Vein Thrombosis/Pulmonary Embolism Present on Admission: No
--- NOTE | 2022-09-14 11:24 | OT.IP.TRT ---
Occupational Therapy Treatment Note M2 OT-IP Current Condition Start: 09/13/22 12:34 Freq: Status: Active Protocol: Document 09/13/22 11:10 [facility] (Rec: 09/13/22 13:10 [facility] [id number]) Occupational Therapy Current Condition Current Condition Evaluation Date 09/13/22 Treatment Diagnosis Global weakness, decreased mobility Diagnosis Onset Date 09/12/22 M3 OT- IP Subjective and Pain Start: 09/13/22 12:34 Freq: Status: Active Protocol: Document 09/14/22 11:24 [facility] (Rec: 09/14/22 11:31 [facility] [id number]) OT- Subjective Occupational Therapy Visit Type Type Treatment Note Visit Start Time 11:08 Visit Stop Time 11:27 Total Visit Minutes 19 Occupational Therapy Visit Comments Patient Comments Pt wanting to use the bathroom . Patient/Caregiver Goals TO go home. OT Pain Assessment Pain When Pain Assessed During Mobility Pain Present Pain Present Pain Reported Location Right Hip Intensity 2 Scale Used Numeric (0 - 10) M4 OT- IP ADL's Start: 09/13/22 12:34 Freq: Status: Active Protocol: Document 09/14/22 11:24 [facility] (Rec: 09/14/22 11:31 [facility] [id number]) OT ADL-Toileting General Evaluation Toileting Ability Moderate Assistance Areas Needing Assistance Manage Clothing Devices Toileting Assistive Devices Commode Comments OT Toileting Comments Pt having low BP and therefore use of BSC versus walking into the bathroom. Pt needing assist to pull down her brief and up in the back. Pt able to do hygiene needs while lying down as getting dizzy while standing and therefore just transferred pt back to bed. OT ADL-Bathing Comments OT Bathing Comments Not performed. M5 OT- IP IADL's Start: 09/13/22 12:34 Freq: Status: Active Protocol: Document 09/13/22 11:10 [facility] (Rec: 09/13/22 13:10 [facility] [id number]) OT-Instrumental Activities of Daily Living Deficits IADL Deficits Identified No Deficits Medication Management Medication Management Caregiver Administers Money Management Money Management Caregiver Provides Assistance Meal Preparation Meal Preparation Caregiver Provides Assist Oil Pipe Inspector Oil Pipe Inspector Caregiver Provides Assist Driving Driving Concerns Identified Regarding Safety M6 OT- IP Functional Cognition Start: 09/13/22 12:34 Freq: Status: Active Protocol: Document 09/14/22 11:24 [facility] (Rec: 09/14/22 11:31 [facility] [id number]) Cognitive Factors Limiting Selfcare Function Cognitive Comments Cognitive Assessment Comments Pt is a little forgetful and looks to her to answer questions. M7 OT- IP Mobility and Balance Start: 09/13/22 12:34 Freq: Status: Active Protocol: Document 09/14/22 11:24 [facility] (Rec: 09/14/22 11:31 [facility] [id number]) OT- Bed Mobility Assessment Supine to Sit Supine to Sit Assist Standby Assistance Sit to Supine Sit to Supine Assist Standby Assistance OT-Transfer Assessment Sit to and From Stand Sit to and from Stand Contact Guard Assistance, Moderate Assistance Transfers Transfer Ability Contact Guard Assistance, Moderate Assistance Technique Transfer Destination Bed,Bedside Commode Transfer Technique Stand Step Pivot Devices Transfer Assistive Devices Gait Belt,Front Wheeled Walker Comments Mobility Comments SBA to get out of bed, CGA to stand to FWW, vc to push up from the bed to stand. MODA to stand from [facility] and transfer as her right foot sliding out in front of her and not feeling well due to feeling dizzy when standing. BP supine 107/43, sitting 104/48, and then symptomatic while standing 94/38, sitting 95/47. OT- Balance Assessment Sitting Balance and Reactions Static Sitting Balance Ability Good Dynamic Sitting Balance Ability Fair Standing Balance and Reactions Static Standing Balance Ability Fair Dynamic Standing Balance Ability Poor M8 OT- IP Objective Assessments Start: 09/13/22 12:34 Freq: Status: Active Protocol: Document 09/13/22 11:10 [facility] (Rec: 09/13/22 13:10 [facility] [id number]) OT Gross Range of Motion Upper Extremity Range of Motion Assessment Left Impaired OT Strength Upper Extremity Strength Assessment Left Impaired Comments Strength Comments LUE 3-/5 to 4-/5 from proximal to distal. OT- Coordination Assessment Upper Extremity Finger to Nose Test Left UE Impaired OT Sensation Assessment Comments Summary Comments Intact for light touch M9 OT- IP Assessment and Plan Start: 09/13/22 12:34 Freq: Status: Active Protocol: Document 09/14/22 11:24 [facility] (Rec: 09/14/22 11:31 [facility] [id number]) OT Summary Assessment and Plan Potential Rehabilitation Potential Good Analytic Complexity at Evaluation Moderate Summary OT Impairments Pain,Strength,Balance, Functional Cognition, Functional Mobility,Self- Feeding,Grooming,Dressing, Toileting,Bathing,Toilet Transfers,Shower Transfers, Activity Tolerance Progress Towards Goals Slow Progress due to Pain,Slow Progress due to Medical Issues Assessment Summary Pt able to do transfer to and from commode and feeling hypotensive when standing, nursing and hospitalist notified. Pt looking to go back to skilled rehab when medically stable. Per pt's pt periodically gets dizzy and does not feel well pt ends up using the wc in the house or when she is feeling well able to walk with the FWW. Goals Self-Feeding Goal Independent Grooming Goal Independent Dressing Goal Minimal Assistance Toileting Goal Minimal Assistance Bathing Goal Minimal Assistance Toilet Transfer Goal Independent Shower Transfer Goal Standby Assistance Days to Meet Goals 19 Frequency of Treatment Frequency Of Treatment Once a Day Treatment Plan OT Treatment Plan ADL Training,Functional Mobility,Patient/Family Education,Discharge Planning Discharge Recommendations OT Discharge Recommendations SNF Rehab Transportation Needs at Discharge Wheelchair/Cabulance
[2022-09-14 12:00] VITALS: BP 101/40; PULSE 44; RESP 18; TEMP 37; O2SAT 97
--- NOTE | 2022-09-14 12:13 | PC.NURSE ---
notified of pt's orthostatic BP reading this AM. No new orders received. Jena Sherman RN Case Management
--- NOTE | 2022-09-14 12:51 | PM.PN.1 ---
Subjective Subjective Interval history: Patient with dizziness today, difficulty mobilizing with PT. She was severely orthostatic, possibly due to prednisone being reduced from her usual home dosing. Creatinine also continuing to climb. Was to discharge today but held due to orthostasis and worsening cr. Exam Vital Signs (past 8 hours): - 09/14/22 08:26 09/14/22 08:00 09/14/22 08:00 Temperature 97.2 F L Pulse Rate 92 H 88 Pulse Rate [Orthostatic Lying] 107 H Pulse Rate [Orthostatic Sitting] 69 Pulse Rate [Orthostatic Standing] 55 L Respiratory Rate 18 Blood Pressure 106/52 L Blood Pressure [Orthostatic Lying] 149/94 H Blood Pressure [Orthostatic Sitting] 114/56 L Blood Pressure [Orthostatic Standing] 88/46 L Pulse Oximetry 100 Oxygen Flow Rate 0 09/14/22 09:15 Temperature Pulse Rate 85 Pulse Rate [Orthostatic Lying] Pulse Rate [Orthostatic Sitting] Pulse Rate [Orthostatic Standing] Respiratory Rate Blood Pressure Blood Pressure [Orthostatic Lying] Blood Pressure [Orthostatic Sitting] Blood Pressure [Orthostatic Standing] Pulse Oximetry Oxygen Flow Rate Oxygen Delivery Method Room Air Oxygen Flow Rate 0 Narrative Exam Narrative: General:? Frail-appearing, thin delightful elderly female, in no distress at this time HEENT:? dry mucous membranes, normal sclera with reactive pupils, airway is patent.? Neck:? Minimal JVD, supple Respiratory:? Lung sounds are clear in all castro without any adventitious sounds Cardiac:? RRR without no murmurs, rubs or gallops Abdomen:? Soft, nontender, decreased bowel tones in all 4 quadrants, no CVA tenderness Skin:? Warm and dry, multiple bruising present various stages of healing to upper and lower extremities, noted significant abrasions to bilateral anterior lower extremities. Neurologic:? Globally weak but Grossly neurologically intact with no obvious asymmetries or abnormalities Extremities: warm dry, cracking skin, radial & pedal pulses intact, lower extremity chronic venous stasis changes, 2+ lower extremity edema bilaterally-patient baseline. Psych:? Patient is calm, mild cognitive impairment/confusion, poor historian-patient baseline. Objective Labs 09/13/22 06:26 09/14/22 06:06 Labs: Laboratory Results - last 24 hr 09/14/22 09/14/22 06:06 07:00 Sodium 135 L Potassium 4.6 Chloride 107 Carbon Dioxide 24 BUN 41 H Creatinine 1.89 H Estimated GFR 27 L BUN/Creatinine Ratio 21.7 Glucose 83 Calcium 8.0 L NT-Pro-B Natriuret Pep 7310 H [facility] Medical History Atypical migraine Bilateral lower extremity edema Chicken pox (~1951) Chronic adrenal insufficiency Chronic anticoagulation Chronic back pain (~1964) Chronic diarrhea Chronic kidney disease Fecal incontinence (~2021) Headache (~2021) Hearing loss (~2011) History of DVT (deep vein thrombosis) History of kidney disease (~2002) Hyperlipidemia Hypertension Interstitial lung disease Irritable bowel syndrome (~2012) Measles (~1951) Mixed hyperlipidemia Mumps (~1951) 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 Stage 3b chronic kidney disease (CKD) Uses walker Venous (peripheral) insufficiency Surgical History (Updated 09/13/22 @ 00:12 by LORENE Andino) Anesthesia History of back surgery (~2012) History of left heart catheterization (LHC) History of throat surgery (~1974) Family History Father Cancer History of heart disease Mother Hypertension Social History household members: spouse Smoking Status: Never smoker alcohol intake: current Assessment & Plan Assessment & Plan narrative: Orthostatic hypotension, weakness, with possible dehydration, present on admission -patient is sent from sound view due to requiring 2 patient assist for transfers, worsening global weakness. On admit exam I found the patient to be hypovolemic, no signs of exacerbation of heart failure, no shortness of breath. -PT/OT/CREDIT NEGOTIATOR consulted -strict fall precautions -IVF seems to helped and patient felt improved, but severely orthostatic BP today. -restart home prednisone 15 mg to see if improvement with orthostatics. Elevated proBNP (though lower than previous admits), with rising Cr today but not overtly overloaded on exam. Will hold additional IV fluids for now. May still be volume down given orthostasis but difficult to discern. Frequent falls, chronic, present on admission -Frequent emergency department visits and admissions -see above -continue PT/OT Cognitive impairment/Decline, acute metabolic encephalopathy ruled out, present on admission -believe that patient's cognitive impairment is her baseline likely Dementia but unclear as patient has been seriously ill on previous hospitalizations. -patient unable to contribute to HPI, ROS, medication reconciliation -no infectious etiologies found. chronic systolic heart failure secondary to ischemic cardiomyopathy. present on admission -I personally reviewed: Last echo 08/22/2022 EF 35-40%, LVEF has decreased since prior study, moderate global hypokinesis of the left ventricle, significant dyssynchronous contraction pattern consistent with conduction abnormality. -history of NSTEMI believed to be secondary to COVID-19 infection 08/20/2022, with left heart catheterization -low-sodium diet -monitor electrolytes -monitor for fluid overload/respiratory distress -unable to add regla/arb given hypotension / orthostasis at this time. Lymphedema, chronic, present on admission -bilateral lower extremity nonpitting, +2 edema- baseline -monitor for worsening lymphedema Hypertension, essential, acute on chronic, present on admission -continue metoprolol 50mg XL daily -temporary bridge covered: metoprolol 5 mg IV for coverage:? Give for >30min sustained SBP>180,DBP>100,HR>110 (cautious of low heart rate) History of DVT on chronic anticoagulation, chronic, present on admission - now off warfarin due to frequent falls - patient may not be the best candidate to continue with anticoagulation. 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 Malnutrition, mild, acute, present on admission -previous BMI 28, BMI 08/2022-23.5, Today BMI 23 -patient's malnutrition places them at high risk for medical and surgical complications in relation to acute illness/chronic illness.? This increases the difficulty in complexity of medical management and increases the chances poor outcomes such as mortality and morbidity as well as impaired wound healing, and immune suppression. Hypothyroidism, acquired, chronic, present on admission -continue levothyroxine -Ordered TSH: 0.154 - decreased dosage 100 to 75mcg-repeat TSH in 6 weeks ? Atypical migraine, chronic, present on admission -continue Topiramate, Depression, chronic, present on admission -continue sertraline Code: Full PCP Jose Surrogate: Bill Jennyfer, spouse DVT/VTE: Lovenox & SCD's Disposition:?Back to [facility] on 09/14. Quality VTE Deep Vein Thrombosis/Pulmonary Embolism Present on Admission: No
[2022-09-14] MEDS: predniSONE 5 MG TABLET 10 MG PO (13:10)
--- NOTE | 2022-09-14 16:09 | PT.IPTN ---
Physical Therapy Treatment Note M2 PT-IP Current Condition Start: 09/13/22 12:28 Freq: NEEDED Status: Active Protocol: Document 09/13/22 10:10 AB (Rec: 09/13/22 12:41 AB [id number]) Physical Therapy Current Condition Current Condition Evaluation Date 09/13/22 Treatment Diagnosis CHF; difficulty in walking Onset Date 09/12/22 M3 PT-IP Subjective Start: 09/13/22 12:28 Freq: NEEDED Status: Active Protocol: Document 09/14/22 16:34 TS (Rec: 09/14/22 16:52 TS [id number]) Subjective Physical Therapy Visit Type Type Treatment Note Visit Start Time 16:09 Visit Stop Time 16:30 Total Visit Minutes 21 Notes BP:115/54 supine, 105/47 sitting, 102/42 standing Number of LASER CUTTER Visits 1 Physical Therapy Visit Comments Patient Comments Pt reports R hip pain, has been gettig up with nursing for short walks to restroom, agreeable to do PT Therapy Pain Assessment Pain When Pain Assessed During Mobility Pain Present Pain Present Pain Reported Location Right Hip Intensity 5 Scale Used Numeric (0 - 10) Description Aching,With Movement Pain Behaviors Facial Grimacing Pain Management Techniques Modification of Treatment,Re- positioning M4 PT-IP Mobility and Gait Start: 09/13/22 12:28 Freq: NEEDED Status: Active Protocol: Document 09/14/22 16:34 TS (Rec: 09/14/22 16:52 TS [id number]) PT-Bed Mobility Assessment Supine to Sit Supine to Sit Standby Assistance,Head of Bed Elevated,Bedrails Sit to Supine Sit to Supine Standby Assistance Scooting Scooting to Edge of Bed Standby Assistance Scooting Up and Down in Bed Standby Assistance PT-Transfer Assessment Sit to and From Stand Sit to and from Stand Minimal Assistance,1 Person Assistance,Use of Upper Extremities Equipment Transfer Assistive Device Gait Belt,Front Wheeled Walker Orthotic/Prosthetic Devices or Brace: No Comments Mobility Comments Pt found resting in bed, agreeable to PT. BP in supine 115/54 prior to mobility. Supine to sit SBa with BUE support and HOB slighlty elevated. Sitting EOB SBA with no UE support, BP 105/47. Sit to stand x2 Keon with FWW, BP 102/42, pt fatigues quickly in standing when taking BP requires to sit back on bed, denied any dizziness. Sit to stand x1 Keon for retrolean, braces LEs against for support . She ambulated around room ~ 15' Keon for balance, x1LOB required ModA for correction. She fatigued after ~8', reported increased dizziness, pt sat back on bed. She scooted to HOB SBA and performed sit to supine SBA into bed. Pt was left in bed with call light nearby, RN notified. Gait Assessment Gait Gait Assistance Required: Minimum Assistance,Moderate Assistance,1 Person Assist Distance (Feet) 15 Assistive Devices Assistive Device Gait Belt,Front Wheeled Walker Orthotic/Prosthetic Devices or Brace: No Gait Deviations General Gait Pattern Antalgic,Decreased Stride Length,Decreased Feet Clearance,Flexed Trunk,Narrow Based Gait,Step-to Gait Factors Limiting Gait Function Factors Limiting Gait Function Decreased Activity Tolerance, Decreased Strength,Limited Range of Motion,Pain,Poor Balance,Poor Safety Awareness Comments Gait Comments See mobility comments. PT-Balance Assessment Sitting Balance and Reactions Static Sitting Balance Ability Good Dynamic Sitting Balance Ability Fair Standing Balance and Reactions Static Standing Balance Ability Fair Dynamic Standing Balance Ability Poor Device Used FWW M5 PT-IP Objective Assessments Start: 09/13/22 12:28 Freq: NEEDED Status: Active Protocol: Document 09/13/22 10:10 AB (Rec: 09/13/22 12:41 AB [id number]) Orientation Orientation/Cognition Level of Alertness Alert Orientation Name,Place,Situation Language Function Ability Hard of Hearing Safety Awareness Decreased Safety Awareness Memory Description Short Term Impaired Gross Range of Motion Lower Extremity ROM Assessment Within Functional Limits Strength Lower Extremity Strength Assessment Right Impaired Hip 3+/5 Knee 4-/5 Muscle Tone Muscle Tone WNL Yes M6 PT-IP Treatment Start: 09/13/22 12:28 Freq: NEEDED Status: Active Protocol: Document 09/14/22 16:34 TS (Rec: 09/14/22 16:52 TS [id number]) Physical Therapy Treatment Education Education Provided Safety M7 PT-IP Assessment and Plan Start: 09/13/22 12:28 Freq: NEEDED Status: Active Protocol: Document 09/14/22 16:34 TS (Rec: 09/14/22 16:52 TS [id number]) PT Summary Assessment and Plan Potential Rehabilitation Potential Fair Summary Impairments Pain,ROM,Strength,Balance, Coordination,Sensation,Tone, Cognition,Bed Mobility, Transfers,Gait,Activity Tolerance Progress Towards Goals Slow Progress due to Medical Issues,Slow Progress due to Activity Tolerance Assessment Summary Pt performed all bed mobility SBA from flat bed, she denied any dizziness when sitting up EOB. She continues to require Keon for sit to stands due to poor balance and retroleaning, she braces back of LEs against bed for balance. She ambulated ~15' CGA, had x1 LOB requiring ModA for balance, pt c/o increased dizziness and required to sit EOB, see vital signs above for BP. PT recommends SNF at this time to progress funcitonal mobility and activity tolerance. Goals Bed Mobility Goal Independent Transfer Goal Independent,Front Wheeled Walker Gait Goal Independent,Front Wheel Walker Gait Distance 50 Other Goals improve transfers and ambulation using 4WW 75 ft SBA Days to Meet Goals 10 Frequency of Treatment Frequency Of Treatment Once a Day Treatment Plan Physical Therapy Treatment Plan Bed Mobility Training,Transfer Training,Gait Training, Therapeutic Exercise,Balance Retraining,Discharge Planning, Hot or Cold Pack,Neuromuscular Re-ed,Coordination Retraining Other Recommendations and Next Treatment Continue to progress gait and Focus transfers. Precautions Other Precautions BP Recommendations To Nursing Amount of Assist Needed 1 Person Assist Discharge Recommendations PT Discharge Recommendations SNF Rehab Transportation Needs at Discharge Private Vehicle,Wheelchair/ Cabulance
[2022-09-14 19:35] VITALS: BP 133/54; PULSE 65; RESP 20; TEMP 36.9; O2SAT 95
[2022-09-14] MEDS: ATORVASTATIN 20 MG TABLET 10 MG PO (21:13)
[2022-09-15 03:00] VITALS: BP 104/47; PULSE 79; RESP 18; TEMP 37.1; O2SAT 96
[2022-09-15] MEDS: LEVOTHYROXINE 100 MCG TABLET PO (06:00)
[2022-09-15] MEDS: PANTOPRAZOLE DR 20 MG TABLET PO (06:00)
--- NOTE | 2022-09-15 06:41 | PC.NURSE ---
Dr. Ervin was made aware that pt refused orthostatic vitals last night but is agreeable to having it done this AM. Pt's VSS. No acute distress noted.
[2022-09-15 07:58] LABS: BUN Creatinine Ratio 24.2 (6-22); Blood Urea Nitrogen 39 mg/dL (7-17); Calcium 8.6 mg/dL (8.4-10.2); Carbon Dioxide 24 mmol/L (22-32); Chloride 109 mmol/L (98-107); Estimated Glomerular Filt Rate 33 mL/min (>60); Glucose 101 mg/dL (80-110); HEMOLYSIS < 15 (0-50); Potassium 4.5 mmol/L (3.4-5.1); Sodium 137 mmol/L (137-145)
[2022-09-15 08:30] VITALS: BP 105/42; BP 106/40; BP 113/39; PULSE 47; PULSE 54; PULSE 59; RESP 18; TEMP 36.9; O2SAT 98
[2022-09-15 08:58] VITALS: BP 113/39; PULSE 47
[2022-09-15] MEDS: ASPIRIN 81 MG CHEW TAB PO (08:59)
[2022-09-15] MEDS: predniSONE 5 MG TABLET 15 MG PO (08:59)
[2022-09-15] MEDS: POTASSIUM CHLORIDE 20 MEQ TAB PO (08:59)
[2022-09-15] MEDS: ENOXAPARIN 30 MG/0.3 ML SYRINGE SUBCUT (09:01)
--- NOTE | 2022-09-15 09:38 | OT.IP.TRT ---
Occupational Therapy Treatment Note M2 OT-IP Current Condition Start: 09/13/22 12:34 Freq: Status: Active Protocol: Document 09/13/22 11:10 [facility] (Rec: 09/13/22 13:10 [facility] [id number]) Occupational Therapy Current Condition Current Condition Evaluation Date 09/13/22 Treatment Diagnosis Global weakness, decreased mobility Diagnosis Onset Date 09/12/22 M3 OT- IP Subjective and Pain Start: 09/13/22 12:34 Freq: Status: Active Protocol: Document 09/15/22 09:00 [facility] (Rec: 09/15/22 10:16 [facility] [id number]) OT- Subjective Occupational Therapy Visit Type Type Treatment Note Visit Start Time 09:00 Visit Stop Time 09:38 Total Visit Minutes 38 Occupational Therapy Visit Comments Patient Comments Pt wanting to get up to use the bathroom and agreed to do the SLUMS. Patient/Caregiver Goals TO go home. OT Pain Assessment Pain When Pain Assessed At Rest Pain Present Pain Present Denied Pain M4 OT- IP ADL's Start: 09/13/22 12:34 Freq: Status: Active Protocol: Document 09/15/22 09:00 [facility] (Rec: 09/15/22 10:16 [facility] [id number]) OT [id number] Comments OT Self-Feeding Comments Not at meal time. OT ADL-Grooming Comments OT Grooming Comments Not performed. OT ADL-Oral Care Comments Oral Care Comments Not performed. OT ADL-Dressing General Eval Lower Body Dressing Ability Maximum Assistance Comments OT Dressing Comments Assist to anna her brief over her feet and up ove her hips. OT ADL-Toileting General Evaluation Toileting Ability Moderate Assistance Areas Needing Assistance Manage Clothing Devices Toileting Assistive Devices Commode Comments OT Toileting Comments Pt able to wipe after use of the toilet and needing assist for brief management needs. OT ADL-Bathing Comments OT Bathing Comments Pt refused. M5 OT- IP IADL's Start: 09/13/22 12:34 Freq: Status: Active Protocol: Document 09/13/22 11:10 [facility] (Rec: 09/13/22 13:10 [facility] [id number]) OT-Instrumental Activities of Daily Living Deficits IADL Deficits Identified No Deficits Medication Management Medication Management Caregiver Administers Money Management Money Management Caregiver Provides Assistance Meal Preparation Meal Preparation Caregiver Provides Assist Telegraph Office Telephone Clerk Telegraph Office Telephone Clerk Caregiver Provides Assist Driving Driving Concerns Identified Regarding Safety M6 OT- IP Functional Cognition Start: 09/13/22 12:34 Freq: Status: Active Protocol: Document 09/15/22 09:00 [facility] (Rec: 09/15/22 10:16 [facility] [id number]) Cognitive Factors Limiting Selfcare Function Cognitive Tests SLUMS Pt scored 16/30 which implies dementia. Pt not able to calculate 100-23 even when written out for her, able to recall 13 animals in one minute, able to recall 3/5 objects after time passed, not able to recall 4 digit number backwards, not able to write the numbers of the clock correctly , and able to answer 2/4 questions write after paragraph read. Cognitive Comments Cognitive Assessment Comments Pt a bit confused and when asked said her daughter is 28 years old and that her grand daughter is 21 years old. Pt able to realize her mistake but not able to come up with how old her daughter is. Pt able to say that she has been for 57 years and had her daughter several years after being but still not able to roughly calculate how old her daughter is. M7 OT- IP Mobility and Balance Start: 09/13/22 12:34 Freq: Status: Active Protocol: Document 09/15/22 09:00 [facility] (Rec: 09/15/22 10:16 [facility] [id number]) OT- Bed Mobility Assessment Supine to Sit Supine to Sit Assist Standby Assistance Sit to Supine Sit to Supine Assist Standby Assistance OT-Transfer Assessment Sit to and From Stand Sit to and from Stand Minimal Assistance Transfers Transfer Ability Minimal Assistance Technique Transfer Destination Bed,Bedside Commode Transfer Technique Stand Step Pivot Devices Transfer Assistive Devices Gait Belt,Front Wheeled Walker Comments Mobility Comments SBA to get out fo bed , CGA to stand and ARA for fww to get to the BSC. BP supine 117/54 , sitting 120/51 and standing 113/55. Pt complaining of being dizzy and O2 on RA 99%. OT- Balance Assessment Sitting Balance and Reactions Static Sitting Balance Ability Good Dynamic Sitting Balance Ability Fair Standing Balance and Reactions Static Standing Balance Ability Fair Dynamic Standing Balance Ability Fair M8 OT- IP Objective Assessments Start: 09/13/22 12:34 Freq: Status: Active Protocol: Document 09/13/22 11:10 [facility] (Rec: 09/13/22 13:10 [facility] [id number]) OT Gross Range of Motion Upper Extremity Range of Motion Assessment Left Impaired OT Strength Upper Extremity Strength Assessment Left Impaired Comments Strength Comments LUE 3-/5 to 4-/5 from proximal to distal. OT- Coordination Assessment Upper Extremity Finger to Nose Test Left UE Impaired OT Sensation Assessment Comments Summary Comments Intact for light touch M9 OT- IP Assessment and Plan Start: 09/13/22 12:34 Freq: Status: Active Protocol: Document 09/15/22 09:00 [facility] (Rec: 09/15/22 10:16 [facility] [id number]) OT Summary Assessment and Plan Potential Rehabilitation Potential Good Analytic Complexity at Evaluation Moderate Summary OT Impairments Pain,Strength,Balance, Functional Cognition, Functional Mobility,Self- Feeding,Grooming,Dressing, Toileting,Bathing,Toilet Transfers,Shower Transfers, Activity Tolerance Progress Towards Goals Progressing Toward Goals Assessment Summary Pt BP better but still complaining of being somewhat dizzy. Pt seems to do better when able to distract and talk to her. Pt scored 16/30 on the SLUMS which implies dementia at this time. Pt looking to go back to [facility] when medically stable. Goals Self-Feeding Goal Independent Grooming Goal Independent Dressing Goal Minimal Assistance Toileting Goal Standby Assistance Bathing Goal Minimal Assistance Toilet Transfer Goal Independent Shower Transfer Goal Standby Assistance Days to Meet Goals 15 Frequency of Treatment Frequency Of Treatment Once a Day Treatment Plan OT Treatment Plan ADL Training,Functional Mobility,Patient/Family Education,Discharge Planning Discharge Recommendations OT Discharge Recommendations SNF Rehab Transportation Needs at Discharge Wheelchair/Cabulance
--- NOTE | 2022-09-15 10:01 | PM.DS.1 ---
History of Present Illness History of Present Illness Date Patient Seen: 09/15/22 Time Patient Seen: 10:01 Chief complaint: CHF exac Narrative: Per admitting provider, Christine Burger (Lorraine) is a bashir 76 year-old patient with a history of hypertension, hyperlipidemia, chronic hip pain, autoimmune disease, chronic kidney disease stage 4, hypothyroidism, reflux, prior DVT currently anticoagulated on Coumadin, bilateral lower extremity lymphedema, Frequent falls, chronic spondylosis/lumbar stenosis with acute sacral insufficiency fractures bilaterally secondary to pathological fractures from osteoporosis, L2 compression fracture, prior lumbar laminectomy,? right hip arthroplasty, LLE venous insufficiency, pulmonary fibrosis, fequent falls, cognitive impairment, had been transferred from [facility] to [facility] for heart catheterization on 08/18/2022 for NSTEMI, and new diagnosis of heart failure w/cardiomyopathy was d/c to [facility]. Patient was sent over from [facility] due to increasing body aches and weakness, patient requiring 2 person assist for transfers over the past week. Patient was slightly tachypneic in ED respiratory rate 26-28. On admit exam patient mildly confused which is I believe her baseline, based on my personal experience with patient with previous admits. Patient is a poor historian and unable to accurately contribute to ROS or HPI. On admit exam patient denies any symptoms other than her chronic low back pain, but when questioned further she then denies pain. Patient verbalized that she is been living at home with her she has in fact been staying at [facility] following discharge from [facility]. She is found to be normotensive and in no distress at this time. Patient is hemodynamically stable BP 133/91, 82, 12, 96% on room air. Patient has no white count does absolute neutrophils 8800, potassium 5.2, chloride 109, bicarb 20, BUN 35, creatinine 1.57, GFR 34-patient's renal function is at baseline for CKD stage 4. Patient had not been prescribed Lasix as an outpatient due to CKD stage 4. Troponin negative-0.021, I personally reviewed EKG sinus rhythm 90, with PACs, low-voltage QRS possible anteriorseptal infarct, unchanged from previous EKG 08/18/2022. BNP 10,000, lipase 263, urinalysis negative, CTA: negative for PE. Patient admitted for CHF exacerbation. Discharge Providers Provider Date of admission: 09/12/22 20:55 Discharge Date: 09/15/22 Primary care physician: Jamir Garcia MD Consults: 09/12/22 21:13 Consult to Discharge Planning Routine Comment: Consult to Occupational Therapy Evaluate & Treat Comment: weakness/2 person assist Physician Instructions: Evaluate and treat Consult to Physical Therapy Evaluate & Treat Comment: weakness/2 person assist Physician Instructions: Evaluate and Treat 09/13/22 01:15 Consult to SWITCHBOARD WIRER - Valve And Regulator Repairer Routine Comment: placement evaluation/needs -likely dementia SWITCHBOARD WIRER Consult needed for:: Community Health Res Need 09/14/22 09:00 Consult to Home Health Routine Comment: Reason For Exam: weakness Discharge provider: Toby Mullins DO Summary Hospital Course Discharge Diagnosis: Orthostatic hypotension, weakness, with possible dehydration, present on admission Frequent falls, chronic, present on admission Cognitive impairment/Decline, acute metabolic encephalopathy ruled out, present on admission chronic systolic heart failure secondary to ischemic cardiomyopathy. 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 Atypical migraine, chronic, present on admission Depression, chronic, present on admission Hospital Course: Christine Burger (Lorraine) is a bashir 76 year-old patient with a history of hypertension, hyperlipidemia, chronic hip pain, autoimmune disease, chronic kidney disease stage 4, hypothyroidism, reflux, prior DVT currently anticoagulated on Coumadin, bilateral lower extremity lymphedema, Frequent falls, chronic spondylosis/lumbar stenosis with acute sacral insufficiency fractures bilaterally secondary to pathological fractures from osteoporosis, L2 compression fracture, prior lumbar laminectomy,? right hip arthroplasty, LLE venous insufficiency, pulmonary fibrosis, fequent falls, cognitive impairment, had been transferred from [facility] to [facility] for heart catheterization on 08/18/2022 for NSTEMI, and new diagnosis of heart failure w/cardiomyopathy was d/c to [facility]. Patient was sent over from [facility] due to increasing body aches and weakness, patient requiring 2 person assist for transfers over the past week. She was found to be dehydrated initially, and improved slightly with IV fluid administration. She was noted to be orthostatic with physical therapy, despite fluid therapy. She had been receiving less prednisone than she had been according to her list from [facility], and her usual home dose of prednisone 15 mg was restarted with improvement in orthostasis. She was transferred back to SNF for ongoing therapies. Her home beta santhosh was also held given soft BP and low HR noted during her stay with improvement in symptoms as well. Recommend continued medication adjustments with her hse coordinator as an outpatient. Time Spent with Patient Time spent: Greater than 30 minutes Exam Vital Signs (past 8 hours): - 09/15/22 03:00 09/15/22 08:58 09/15/22 08:30 Temperature 98.8 F Pulse Rate 79 47 L Pulse Rate [Orthostatic Lying] 47 L Pulse Rate [Orthostatic Sitting] 59 L Pulse Rate [Orthostatic Standing] 54 L Respiratory Rate 18 Blood Pressure 104/47 L 113/39 L Blood Pressure [Orthostatic Lying] 113/39 L Blood Pressure [Orthostatic Sitting] 106/40 L Blood Pressure [Orthostatic Standing] 105/42 L Pulse Oximetry 96 Oxygen Flow Rate 0 09/15/22 08:30 Temperature 98.5 F Pulse Rate 47 L Pulse Rate [Orthostatic Lying] Pulse Rate [Orthostatic Sitting] Pulse Rate [Orthostatic Standing] Respiratory Rate 18 Blood Pressure 113/39 L Blood Pressure [Orthostatic Lying] Blood Pressure [Orthostatic Sitting] Blood Pressure [Orthostatic Standing] Pulse Oximetry 98 Oxygen Flow Rate 0 Oxygen Delivery Method Room Air Oxygen Flow Rate 0 Narrative Exam Narrative: General:? Frail-appearing, thin delightful elderly female, in no distress at this time HEENT:? dry mucous membranes, normal sclera with reactive pupils, airway is patent.? Neck:? Minimal JVD, supple Respiratory:? Lung sounds are clear in all castro without any adventitious sounds Cardiac:? RRR without no murmurs, rubs or gallops Abdomen:? Soft, nontender, decreased bowel tones in all 4 quadrants, no CVA tenderness Skin:? Warm and dry, multiple bruising present various stages of healing to upper and lower extremities, noted significant abrasions to bilateral anterior lower extremities. Neurologic:? Globally weak but Grossly neurologically intact with no obvious asymmetries or abnormalities Extremities: warm dry, cracking skin, radial & pedal pulses intact, lower extremity chronic venous stasis changes, 2+ lower extremity edema bilaterally-patient baseline. Psych:? Patient is calm, mild cognitive impairment/confusion, poor historian-patient baseline. Objective Labs 09/13/22 06:26 09/15/22 07:05 Labs: Laboratory Results - last 24 hr 09/15/22 07:05 Sodium 137 Potassium 4.5 Chloride 109 H Carbon Dioxide 24 BUN 39 H Creatinine 1.61 H Estimated GFR 33 L BUN/Creatinine Ratio 24.2 H Glucose 101 Calcium 8.6 PFSH Medical History Atypical migraine Bilateral lower extremity edema Chicken pox (~1951) Chronic adrenal insufficiency Chronic anticoagulation Chronic back pain (~1964) Chronic diarrhea Chronic kidney disease Fecal incontinence (~2021) Headache (~2021) Hearing loss (~2011) History of DVT (deep vein thrombosis) History of kidney disease (~2002) Hyperlipidemia Hypertension Interstitial lung disease Irritable bowel syndrome (~2012) Measles (~1951) Mixed hyperlipidemia Mumps (~1951) 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 Stage 3b chronic kidney disease (CKD) Uses walker Venous (peripheral) insufficiency Surgical History (Updated 09/13/22 @ 00:12 by LORENE Andino) Anesthesia History of back surgery (~2012) History of left heart catheterization (LHC) History of throat surgery (~1974) Family History Father Cancer History of heart disease Mother Hypertension Social History household members: spouse Smoking Status: Never smoker alcohol intake: current Discharge Plan Discharge Plan Patient Disposition: SNF Transfer to: [facility] Rehabilitation and Healthcare Provider Discharge Comment: 76F admitted to the hospital for dehydration, mildly improved after IV fluids, but no overt infectious or metabolic etiologies were found. Continue PT/OT therapies at SNF, stable for return to previous facility. Patient did develop orthostatic hypotension as prednisone dose was incorrectly given, beta santhosh has also been held for a few days. Continue to hold beta santhosh but consider resuming if tachycardia or hypertension return. I certify the postop hospital shelter care is medically necessary on a continuing basis for any conditions for which he/ she received care during this hospitalization.: Yes The receiving facility has agreed to accept transfer and provide medical treatment.: Yes Discharge orders & Medications Prescriptions: New prednisone 5 mg Tablet 15 mg PO DAILY 30 Days Qty: 30 0RF Continued potassium chloride 20 mEq tablet,ER particles/crystals 20 meq PO DAILY lidocaine [Lidoderm] 5 % adhesive patch,medicated 1 patch topical DAILY PRN (Reason: back pain) Qty: 30 0RF Rx Instructions: leave on most painful area for up to 12 hrs citalopram 10 mg tablet 10 mg PO DAILY prednisone 5 mg tablet 15 mg PO DAILY levothyroxine 100 mcg tablet 100 mcg PO DAILY pantoprazole 40 mg tablet,delayed release (DR/EC) 40 mg PO DAILY Jardiance 25 mg tablet 12.5 mg PO DAILY ondansetron HCl 4 mg tablet 4 mg PO Q4H PRN (Reason: Nausea) acetaminophen 500 mg Tablet 500 mg PO Q6H PRN (Reason: Pain (Scale Score 1-3)) oxycodone-acetaminophen 5-325 mg tablet 1 tab PO Q4H PRN (Reason: Pain (Scale Score 7-10)) Qty: 10 0RF polyethylene glycol 3350 17 gram powder in packet 17 gram PO DAILY PRN (Reason: Constipation) Changed simvastatin 10 mg tablet 20 mg PO DAILY Qty: 30 0RF Discontinued metoprolol succinate 100 mg tablet extended release 24 hr 50 mg PO DAILY Follow up/Referrals: Jamri Gacria MD [Primary Care Provider] - Diet/Activity/Treatments Diet: Diet as Tolerated and Low-sodium Diet comment: heart healthy 2g sodium Activity: As tolerated, no restrictions Special Rehabilitation Services Reason for rehabilitation: Recovery r/t decondition Rehab type: Physical therapy and Occupational therapy Visit Report/Discharge Packet Instructions: Congestive Heart Failure (Alternative Therapy), DI for Heart Failure Stand Alone Forms: Patient Portal/API Discharge Data Primary Care Provider: Jamir Garcia V Attending Provider: Beverley Pendleton Admit Date/Time: 09/12/22 20:55 Discharges patient from system. Discharge Date/Time: 09/15/22 13:30 Quality VTE Deep Vein Thrombosis/Pulmonary Embolism Present on Admission: No
[2022-09-15] MEDS: OXYCODONE IR 5 MG TABLET PO (10:59)
--- NOTE | 2022-09-15 11:35 | PT.IPTN ---
Physical Therapy Treatment Note M2 PT-IP Current Condition Start: 09/13/22 12:28 Freq: NEEDED Status: Active Protocol: Document 09/13/22 10:10 AB (Rec: 09/13/22 12:41 AB [id number]) Physical Therapy Current Condition Current Condition Evaluation Date 09/13/22 Treatment Diagnosis CHF; difficulty in walking Onset Date 09/12/22 M3 PT-IP Subjective Start: 09/13/22 12:28 Freq: NEEDED Status: Active Protocol: Document 09/15/22 11:26 [facility] (Rec: 09/15/22 11:41 [facility] [id number]) Subjective Physical Therapy Visit Type Type Treatment Note Visit Start Time 11:26 Visit Stop Time 11:35 Total Visit Minutes 9 Number of MARINE PIPEFITTER HELPER Visits 2 Physical Therapy Visit Comments Patient Comments Pt agreeable to transfer to chair for lunch M4 PT-IP Mobility and Gait Start: 09/13/22 12:28 Freq: NEEDED Status: Active Protocol: Document 09/15/22 11:26 [facility] (Rec: 09/15/22 11:41 [facility] [id number]) PT-Bed Mobility Assessment Supine to Sit Supine to Sit Standby Assistance,Head of Bed Elevated,Bedrails Scooting Scooting to Edge of Bed Standby Assistance PT-Transfer Assessment Sit to and From Stand Sit to and from Stand Contact Guard Assistance,1 Person Assistance,Use of Upper Extremities Equipment Transfer Assistive Device Gait Belt,Front Wheeled Walker Orthotic/Prosthetic Devices or Brace: No Transfers Transfer Destination Chair Transfer Technique Stand Step Pivot Transfer Ability Level of Assist Contact Guard Assistance, Minimal Assistance,1 Person Assistance,Use of Upper Extremities Comments Mobility Comments Pt in bed upon arrival, d/c at 1300 but agreeable to transfer to chair for lunch. SBA for sup<>sit and scooting EOB, CGA for sit<>stand w/ FWW and CGA to Min A for stand step pivot to chair for cues and FWW mgmt. Pt left in chair w/ all needs in reach. Gait Assessment Comments Gait Comments See mobility comments. Stand step pivot only. PT-Balance Assessment Sitting Balance and Reactions Static Sitting Balance Ability Good Dynamic Sitting Balance Ability Fair Standing Balance and Reactions Static Standing Balance Ability Fair Dynamic Standing Balance Ability Fair Device Used FWW M5 PT-IP Objective Assessments Start: 09/13/22 12:28 Freq: NEEDED Status: Active Protocol: Document 09/13/22 10:10 AB (Rec: 09/13/22 12:41 AB [id number]) Orientation Orientation/Cognition Level of Alertness Alert Orientation Name,Place,Situation Language Function Ability Hard of Hearing Safety Awareness Decreased Safety Awareness Memory Description Short Term Impaired Gross Range of Motion Lower Extremity ROM Assessment Within Functional Limits Strength Lower Extremity Strength Assessment Right Impaired Hip 3+/5 Knee 4-/5 Muscle Tone Muscle Tone WNL Yes M6 PT-IP Treatment Start: 09/13/22 12:28 Freq: NEEDED Status: Active Protocol: Document 09/15/22 11:26 [facility] (Rec: 09/15/22 11:41 [facility] [id number]) Physical Therapy Treatment Education Education Provided Safety M7 PT-IP Assessment and Plan Start: 09/13/22 12:28 Freq: NEEDED Status: Active Protocol: Document 09/15/22 11:26 [facility] (Rec: 09/15/22 11:41 [facility] [id number]) PT Summary Assessment and Plan Potential Rehabilitation Potential Fair Summary Impairments Pain,ROM,Strength,Balance, Coordination,Sensation,Tone, Cognition,Bed Mobility, Transfers,Gait,Activity Tolerance Progress Towards Goals Slow Progress due to Medical Issues,Slow Progress due to Activity Tolerance Assessment Summary Pt SBA for bed mobility, CGA for Min A for transfer from bed to chair w/ FWW. Requires increased time and cues for safety and FWW mgmt. She will benefit from SNF to improve strength and functional mobility independence. Goals Bed Mobility Goal Independent Transfer Goal Independent,Front Wheeled Walker Gait Goal Independent,Front Wheel Walker Gait Distance 50 Other Goals improve transfers and ambulation using 4WW 75 ft SBA Days to Meet Goals 10 Frequency of Treatment Frequency Of Treatment Once a Day Treatment Plan Physical Therapy Treatment Plan Bed Mobility Training,Transfer Training,Gait Training, Therapeutic Exercise,Balance Retraining,Discharge Planning, Hot or Cold Pack,Neuromuscular Re-ed,Coordination Retraining Other Recommendations and Next Treatment Continue to progress gait and Focus transfers. Precautions Other Precautions BP Recommendations To Nursing Amount of Assist Needed 1 Person Assist Discharge Recommendations PT Discharge Recommendations SNF Rehab Transportation Needs at Discharge Private Vehicle,Wheelchair/ Cabulance
--- NOTE | 2022-09-15 12:48 | CM.DPNOTE ---
DC Note Discharge today back to [facility]R, no PASRR needed September has been updated and agreeable. Patient and spouse remain agreeable to plan, orders and med list in and signed Spouse Bill expresses great concern about patient's stay being OBS. Reviewed w/UR IVONNE Bella who explains patient's OBS status has not changed and EHR agrees with this determination Spouse argumentative and asks where to get a copy of patient's inpatient medication list for a court case suggested spouse discuss this with medical records once patient is discharged. In addition, suggested spouse discuss his concerns
--- NOTE | 2022-09-15 13:04 | CM.DPNOTE ---
Addendum entered by NHAN Jha 09/15/22 13:05: ADD: No PASRR needed for a return to [facility] Original Note: DC Note Discharge today back to [facility], no PASRR needed Anisha has been updated and agreeable. Patient and spouse remain agreeable to plan, orders and med list in and signed Spouse Bill expresses great concern about patient's stay being OBS. Reviewed w/UR RN Jena who explains patient's OBS status has not changed and EHR agrees with this determination Spouse argumentative and asks where to get a copy of patient's inpatient medication list in case there is a court case suggested spouse discuss this with medical records once patient is discharged. In addition, suggested spouse discuss his concerns with our Quality and Risk department and spouse denies need for this Plan: Discharge back to [facility] via wheelchair today JW
--- NOTE | 2022-09-15 13:28 | PC.NURSE ---
Pt discharged to [facility], escorted off floor in wheelchair accompanied by facility staff and . IV removed, discharge teaching included in packet for facility. Report called to Minnie . Patient left the floor with all belongings.
== END 2022-09-15 13:30 ==
LOC: ED 18:05 → AC 20:55
PROVIDERS: Emergency Medicine; Internal Medicine; Admitting Provider Nurse Practitioner Family; Emergency Provider Emergency Medicine; PCP Internal Medicine; Visit Provider Nurse Practitioner Family
DX: R06.02 Shortness of breath (principal); I95.9 Hypotension, unspecified; R07.9 Chest pain, unspecified; M54.9 Dorsalgia, unspecified; R42 Dizziness and giddiness; R53.1 Weakness; E86.0 Dehydration; I13.0 Hypertensive heart and chronic kidney disease with heart failure and stage 1 through stage 4 chronic kidney disease, or unspecified chronic kidney disease; I11.0 Hypertensive heart disease with heart failure; N18.4 Chronic kidney disease, stage 4 (severe); I50.22 Chronic systolic (congestive) heart failure; E44.1 Mild protein-calorie malnutrition; I89.0 Lymphedema, not elsewhere classified; Z79.01 Long term (current) use of anticoagulants; Z86.718 Personal history of other venous thrombosis and embolism; R41.81 Age-related cognitive decline; R29.6 Repeated falls; Z91.81 History of falling; Z20.822 Contact with and (suspected) exposure to COVID-19
CPT/HCPCS: 36415; 71275; 80048; 80053; 81003; 82550; 83605; 83690; 83735; 83880; 84145; 84443; 84484; 85025; 87040; 87070; 87077; 87086; 87186; 87205; 87633; 87635; 93005; 96361; 96372; 96374; 96376; 97129; 97162; 97166; 97530; 97535; 99284; C9803; G0378; J1650; J1940; Q9967

== ENCOUNTER → 2022-09-21 14:40 | Outpatient (CLI) | payer MEDICARE, OTHER, SELFPAY ==
[2022-09-12 21:43] VITALS: BMI 23.0
--- NOTE | 2022-09-21 | DI.RAD.S_ITS ---
PROCEDURE: XR CHEST 2V INDICATIONS: CHEST PAIN TECHNIQUE: 2 views of the chest were acquired. COMPARISON: [facility], CR, XR CHEST 1V, 08/18/2022, 15:51. [facility], CR, XR CHEST 1V, 08/10/2022, 18:57. FINDINGS: Surgical changes and devices: None. Lungs and pleura: Low lung volumes. Possible interstitial fullness in the lungs, along with a right lateral pulmonary nodule, better evaluated on recent CT. Findings are slightly increased compared to prior radiograph in August. Hilar fullness on the right. No drainable effusion. Mediastinum: Cardiomegaly. Bones and chest wall: No suspicious bony abnormalities. Soft tissues appear unremarkable. IMPRESSION: Slightly increased interstitial pulmonary changes compared to prior radiograph and right hilar fullness. Right lateral lung nodule, also seen on prior CT. Cardiomegaly. Differential includes infection and/or edema along with senescent changes. Consider follow-up radiograph for CT for surveillance. Dictated by: Alec Meeks M.D. on 09/21/2022 at 17:01 Approved by: Alec Meeks M.D. on 09/21/2022 at 17:04
--- NOTE | 2022-09-21 14:44 | DI.RAD.S_ITS ---
PROCEDURE: XR SHOULDER LT MIN 2V INDICATIONS: BILATERAL SHOULDER PAIN TECHNIQUE: 3 views of the shoulder were acquired. COMPARISON: [facility], CR, XR SHOULDER LT MIN 2V, 07/29/2022, 20:52. [facility], CR, XR SHOULDER LT MIN 2V, 11/22/2019, 15:02. FINDINGS: Bones: Zcrj-rb-tzncdrml degenerative changes. No displaced fracture or dislocation. Soft tissues: Chest radiograph findings are separately dictated. Vascular calcifications are partially seen. IMPRESSION: Rryj-mq-saigtcwm degenerative shoulder changes. If there is high concern for further derangement, consider MRI evaluation. Dictated by: Alec Meeks M.D. on 09/21/2022 at 17:01 Approved by: Alec Meeks M.D. on 09/21/2022 at 17:01
--- NOTE | 2022-09-21 14:44 | DI.RAD.S_ITS ---
PROCEDURE: XR SHOULDER RT MIN 2V INDICATIONS: BILATERAL SHOULDER PAIN TECHNIQUE: 3 views of the shoulder were acquired. COMPARISON: [facility], CR, XR SHOULDER LT MIN 2V, 07/29/2022, 20:52. [facility], CR, XR SHOULDER LT MIN 2V, 11/22/2019, 15:02. FINDINGS: Bones: No displaced fracture. Yjqv-nw-bzfjeryf glenohumeral and acromioclavicular degenerative changes. Soft tissues: Chest radiograph findings are separately dictated. Questionable nodule in the right mid lung and interstitial changes with hilar fullness. No suspicious calcifications. IMPRESSION: Vrtu-vf-yqmfvfhc degenerative changes. No acute radiographic abnormality. If there is high concern for further derangement, consider MRI evaluation. Dictated by: Alec Meeks M.D. on 09/21/2022 at 16:59 Approved by: Alec Meeks M.D. on 09/21/2022 at 17:00
[2022-09-21 15:49] LABS: Add Manual Diff / Slide Review NO; Basophils Absolute Auto 0 /uL (0-100); Basophils Percent Auto 0.2 % (0-2); Eosinophils Absolute Auto 0 /uL (0-450); Eosinophils Percent Auto 0.1 % (2-4); Hematocrit 40.7 % (36-46); Hemoglobin 13.2 g/dL (12.0-16.0); Lymphocytes Absolute Auto 1400 /uL (1100-4500); Lymphocytes Percent Auto 12.3 % (25-40); Mean Corpuscular HGB Conc 32.4 % (30-36); Mean Corpuscular Hemoglobin 30.5 PG (26-34); Mean Corpuscular Volume 94.1 fL (80-100); Monocytes Absolute Auto 600 /uL (0-900); Monocytes Percent Auto 4.8 % (3-14); Neutrophils Absolute Auto 9600 /uL (1500-7000); Neutrophils Percent Auto 82.6 % (50-75); Platelet Count 156 X10^3/uL (150-400); Red Blood Cell Count 4.32 X10^6/uL (4.0-5.2); Red Cell Distribution Width 18.9 % (11.6-14.8); White Blood Cell Count 11.6 X10^3/uL (4.5-11.0)
[2022-09-21 16:15] LABS: Alanine Aminotransferase 42 IU/L (<35); Albumin 3.4 g/dL (3.5-5.0); Albumin Globulin Ratio 1.4 (1.0-2.8); Alkaline Phosphatase 100 U/L (38-126); Aspartate Aminotransferase 51 IU/L (14-36); BUN Creatinine Ratio 26.1 (6-22); Bilirubin Total 0.6 mg/dL (0.2-1.3); Blood Urea Nitrogen 42 mg/dL (7-17); C-Reactive Protein Quant < 0.5 mg/dL (<1.0); Calcium 8.7 mg/dL (8.4-10.2); Carbon Dioxide 21 mmol/L (22-32); Chloride 106 mmol/L (98-107); Estimated Glomerular Filt Rate 33 mL/min (>60); Globulin 2.4 g/dL (1.7-4.1); Glucose 144 mg/dL (80-110); HEMOLYSIS < 15 (0-50); Potassium 4.7 mmol/L (3.4-5.1); Sodium 137 mmol/L (137-145); Total Protein 5.8 g/dL (6.3-8.2)
[2022-09-21 16:25] LABS: Troponin I 0.045 ng/mL (0.01-0.034)
== END ==
PROVIDERS: PCP Internal Medicine; Referring Provider Nurse Practitioner Family; Visit Provider Nurse Practitioner Family
DX: R07.9 Chest pain, unspecified (principal); I51.7 Cardiomegaly; R91.1 Solitary pulmonary nodule; M25.512 Pain in left shoulder; M25.511 Pain in right shoulder; R53.83 Other fatigue; N18.9 Chronic kidney disease, unspecified; N39.0 Urinary tract infection, site not specified
CPT/HCPCS: 36415; 71046; 73030; 80053; 84484; 85025; 86140

== ENCOUNTER → 2022-09-22 | Outpatient (CLI) | payer MEDICARE, OTHER, SELFPAY ==
[2022-09-12 21:43] VITALS: BMI 23.0
--- NOTE | 2022-09-22 | DI.ECHO.S_ITS ---
Version: 1 Study ID: [id number] [address] [place] [address] Name: MARCIAL BLISS Study Date: 09/22/2022, 8: 14 AM : 1945 BP: 143 / 86 mmHg Gender: Female Height: 63 in Age: 76 Years Weight: 160.003 lb BSA: 1.76 mA? Ordering: Jayde Pickett Referring: JAYDE PICKETT Clinician: Jessika Herzog Reason For Study: Cardiomyopathy History: Summary Statements Indeterminant irregular rhythm. Normal LV size and moderate concentric LVH. Severe global hypokinesis. Ejection fraction is 30-35%. Normal chamber sizes. Mild mitral annular calcification. Otherwise no significant valvular abnormality Trace pericardial effusion. Compared to prior echocardiogram obtained August 19, 2022, LV function got worse. Ejection fraction is down from 35-40% to 30-35%. Procedure: A two-dimensional transthoracic echocardiogram was performed in limited views only. Definity was ordered to enhance endocardial definition but nurse was unable to obtain an IV. Left Ventricle: The left ventricle is normal in size. The ejection fraction is estimated to be 30-35%. Right Ventricle: The right ventricle is normal size. Atria: Mitral Valve: Aortic Valve: Pulmonic Valve: Great Vessels: The IVC is of normal diameter and collapses greater than 50% with a sniff. This suggests a low right atrial pressure of 3 mm Hg. Pericardium/ Pleura: There is a trivial to small pericardial effusion noted. There is an anterior echo-free space consistent with a fat pad. 2D and M-Mode Measurements and Calculations LVIDd: 4.1 cm LVIDs: 3.5 cm IVSd: 1.50 cm LVPWd: 0.90 cm LV armstrong. diameter/BSA (cm/m^2): 2.33 LV sys. diameter/BSA (cm/m^2): 1.99 Electronically signed by: Jayde Genevieve Pickett M.D. 09/22/2022, 5: 13 PM
== END ==
LOC: ECHO 08:03
PROVIDERS: PCP Internal Medicine; Referring Provider Internal Medicine; Visit Provider Internal Medicine
DX: I34.81 Nonrheumatic mitral (valve) annulus calcification (principal); I42.9 Cardiomyopathy, unspecified
CPT/HCPCS: 93306; 93307

== ENCOUNTER → 2022-10-03 13:19 | Outpatient (CLI) | payer MEDICARE, OTHER, SELFPAY ==
[2022-09-12 21:43] VITALS: BMI 23.0
--- NOTE | 2022-10-03 | DI.US.S_ITS ---
PROCEDURE: US [facility] VENOUS LOW EXTREM RT INDICATIONS: PAIN AND SWELLING TECHNIQUE: Real-time imaging, as well as color and pulse Doppler interrogation, were performed of the lower extremity deep veins from the inguinal ligament to the popliteal fossa. COMPARISON: [facility], , [facility] VENOUS LOW EXTREM RT, 10/17/2018, 16:54. FINDINGS: The common femoral, femoral and popliteal veins are normally compressible, and free of intraluminal thrombus. Color and pulse Doppler demonstrate normal phasic intraluminal flow. There is normal augmentation response to distal compression maneuver. Marked edema is noted along the dorsal aspect of the right ankle. IMPRESSION: 1. No deep vein thrombosis of the right lower extremity. 2. Dorsal soft tissue swelling at the ankle. Dictated by: Ruth Lobo M.D. on 10/03/2022 at 15:51 Approved by: Ruth Lobo M.D. on 10/03/2022 at 16:01
== END ==
PROVIDERS: PCP Internal Medicine; Referring Provider Internal Medicine; Visit Provider Internal Medicine
DX: M25.571 Pain in right ankle and joints of right foot (principal)
CPT/HCPCS: 93971

== ENCOUNTER → 2022-10-28 10:23 | Outpatient (CLI) | payer MEDICARE, OTHER, SELFPAY ==
[2022-09-12 21:43] VITALS: BMI 23.0
[2022-10-28 11:24] LABS: Hematocrit 41.2 % (36-46); Hemoglobin 13.5 g/dL (12.0-16.0); Mean Corpuscular HGB Conc 32.9 % (30-36); Mean Corpuscular Hemoglobin 30.6 PG (26-34); Mean Corpuscular Volume 93.1 fL (80-100); Platelet Count 200 X10^3/uL (150-400); Red Blood Cell Count 4.42 X10^6/uL (4.0-5.2)
[2022-10-28 12:02] LABS: Alanine Aminotransferase 40 IU/L (<35); Albumin 3.5 g/dL (3.5-5.0); Albumin Globulin Ratio 1.4 (1.0-2.8); Alkaline Phosphatase 87 U/L (38-126); Aspartate Aminotransferase 38 IU/L (14-36); Bilirubin Total 0.6 mg/dL (0.2-1.3); Blood Urea Nitrogen 35 mg/dL (7-17); Carbon Dioxide 21 mmol/L (22-32); Chloride 111 mmol/L (98-107); Cholesterol 199 mg/dL (140-199); Estimated Glomerular Filt Rate 35 mL/min (>60); Globulin 2.5 g/dL (1.7-4.1); Glucose 82 mg/dL (80-110); HDL Cholesterol 54 mg/dL (40-60); HEMOLYSIS < 15 (0-50); LDL Cholesterol Calculated 112 mg/dL (<100); Potassium 4.3 mmol/L (3.4-5.1); Sodium 138 mmol/L (137-145); Triglycerides 164 mg/dL (35-150)
[2022-10-28 12:35] LABS: TSH w/ Reflex to FT4 0.63 uIU/mL (0.47-4.68)
== END ==
PROVIDERS: PCP Internal Medicine; Referring Provider Internal Medicine; Visit Provider Internal Medicine
DX: E78.2 Mixed hyperlipidemia (principal); I50.22 Chronic systolic (congestive) heart failure; N18.32 Chronic kidney disease, stage 3b; N25.81 Secondary hyperparathyroidism of renal origin
CPT/HCPCS: 36415; 80053; 80061; 84443; 85027

== ENCOUNTER → 2022-11-07 | Outpatient (CLI) | payer MEDICARE, OTHER, SELFPAY ==
[2022-09-12 21:43] VITALS: BMI 23.0
--- NOTE | 2022-11-07 | DI.ECHO.S_ITS ---
Version: 1 Study ID: [id number] [address] [place] [address] Name: MARCIAL BLISS Study Date: 11/07/2022, 3: 07 PM : 1945 Gender: Female Height: 63 in Age: 76 Years Weight: 120.002 lb BSA: 1.56 mA? Ordering: JAYDE PICKETT Referring: JAYDE PICKETT Clinician: Jessika Herzog Reason For Study: Cardiomyopathy History: Summary Statements This is a limited echo to evaluate wall motion and LV systolic function. It is enhanced with Definity echocontrast. Afib with RVR. Normal LV size and moderate concentric LVH; EF is 30-35%. Compared to prior study 09/22/2022 no significant changes have occurred. Procedure: A two-dimensional transthoracic echocardiogram with color flow and Doppler was performed in limited views only. The study quality was technically adequate. Comparison is made with the echocardiogram of 09/22/2022. A contrast injection of Definity was performed to improve assessment of LV function. Left Ventricle: The left ventricle is normal in size. There is moderate concentric left ventricular hypertrophy. The ejection fraction is estimated to be 30-35%. Right Ventricle: The right ventricle is normal size. Atria: Mitral Valve: Aortic Valve: Tricuspid Valve: The tricuspid valve is normal. There is trace tricuspid regurgitation. Pulmonic Valve: Great Vessels: The inferior vena cava was not well visualized. Pericardium/ Pleura: There is a trivial to small pericardial effusion noted. There is no pleural effusion. Jayde Pickett M.D. Electronically signed by: Jayde Pickett M.D. 11/09/2022, 2: 23 PM
== END ==
PROVIDERS: PCP Internal Medicine; Referring Provider Internal Medicine; Visit Provider Internal Medicine
DX: I42.9 Cardiomyopathy, unspecified (principal); I31.39 Other pericardial effusion (noninflammatory)
CPT/HCPCS: 93307; Q9957

== ENCOUNTER 2022-11-14 08:37 | Inpatient (IN) | payer MEDICARE, OTHER, SELFPAY ==
[2022-09-12 21:43] VITALS: BMI 23.0
[2022-11-14] VITALS (19 sets, daily range): BP systolic 87–162; BP diastolic 48–79; PULSE 84–119; RESP 16–36; TEMP 36.2–37.1; O2SAT 92–99; BMI 26.2
--- NOTE | 2022-11-14 08:47 | ED.WEAKNESS ---
HPI - Weakness General Chief complaint: Weakness Stated complaint: Generalized weakness Time Seen by Provider: 11/14/22 08:39 History of Present Illness HPI Narrative: Patient is a 76-year-old female with history of hypertension, dyslipidemia, autoimmune disease, CKD stage 4, hypothyroidism, reflux, prior DVT, bilateral lower extremity lymphedema, chronic spondylosis/lumbar stenosis with acute sacral insufficiency fractures bilaterally secondary to pathologic fracture from osteoporosis, L2 compression fracture, prior lumbar laminectomy, right hip arthroplasty, pulmonary fibrosis, she presents today with back pain and chills. She reports that she just could not get warm she was shivering. Reported fever prior to arrival however afebrile here. She got a Percocet for her back pain. Really complaining of lower lumbar pain. Feet are noted to look cyanotic but actually palpable and dopplerable pulse she reports that her feet always look that way. She appears mildly short of breath but denies any shortness of breath. She apparently had a recent admission to the hospital in September with a new cardiomyopathy and heart failure. Related Data Home Medications Medication Instructions Recorded Confirmed polyethylene glycol 3350 17 gram 17 gram PO DAILY PRN Constipation 10/09/17 10/28/22 oral powder packet potassium chloride 20 mEq 20 meq PO DAILY 06/10/22 10/28/22 tablet,extended release(part/cryst) citalopram 10 mg tablet 10 mg PO DAILY 09/12/22 10/28/22 empagliflozin 25 mg tablet 12.5 mg PO DAILY 09/12/22 10/28/22 (Jardiance) levothyroxine 100 mcg tablet 100 mcg PO DAILY 09/12/22 10/28/22 prednisone 5 mg tablet 15 mg PO DAILY 09/12/22 10/28/22 acetaminophen 500 mg tablet 500 mg PO Q6H PRN Pain (Scale 09/14/22 10/28/22 Score 1-3) ondansetron HCl 4 mg tablet 4 mg PO Q4H PRN Nausea 09/14/22 10/28/22 apixaban 2.5 mg tablet (Eliquis) 2.5 mg PO BID 10/28/22 10/28/22 carvedilol 3.125 mg tablet 3.125 mg PO BID 10/28/22 10/28/22 cholecalciferol (vitamin D3) 125 5,000 unit PO DAILY 10/28/22 10/28/22 mcg (5,000 unit) tablet (Vitamin D3) lidocaine 4 % topical patch 1 patch topical DAILY PRN 10/28/22 10/28/22 Previous Rx's Medication Instructions Recorded oxycodone-acetaminophen 5 mg-325 1 tab PO Q4H PRN Pain (Scale Score 09/15/22 mg tablet 7-10) #10 tabs pantoprazole 40 mg tablet,delayed 40 mg PO BID #180 tabs 11/09/22 release Allergies Allergy/AdvReac Type Severity Reaction Status Date / Time oxybutynin Allergy Severe tongue Verified 10/28/22 09:28 swells Sulfa (Sulfonamide Allergy Severe fever and Verified 10/28/22 09:28 Antibiotics) rash [SULFA (SULFONAMIDE ANTIBIOTICS)] sertraline Allergy Intermediate Diarrhea Verified 10/28/22 09:28 NSAIDS (Non-Steroidal Allergy Unknown Verified 10/28/22 09:28 Anti-Inflamma [NSAIDS (NON-STEROIDAL ANTI-INFLAMMA] cephalexin Allergy rash Verified 10/28/22 09:28 amoxicillin [AMOXICILLIN] AdvReac Severe rash and Verified 11/14/22 14:08 diarrhea codeine [CODEINE] AdvReac Mild headache Verified 10/28/22 09:28 duloxetine [From CYMBALTA] AdvReac Mild vomiting Verified 10/28/22 09:28 morphine [MORPHINE] AdvReac Mild vomiting Verified 10/28/22 09:28 nitrofurantoin AdvReac Mild vomiting Verified 10/28/22 09:28 [From MACROBID] carisoprodol AdvReac Verified 10/28/22 09:28 piroxicam [From Feldene] AdvReac Verified 10/28/22 09:28 tolterodine AdvReac Verified 10/28/22 09:28 Review of Systems Review of Systems ROS Unobtainable: All systems reviewed & are unremarkable except as noted in HPI and below Patient History Medical History Atypical migraine Bilateral lower extremity edema Chicken pox (~1951) Chronic adrenal insufficiency Chronic anticoagulation Chronic diarrhea Chronic kidney disease Hearing loss (~2011) History of DVT (deep vein thrombosis) History of kidney disease (~2002) Hyperlipidemia Hypertension Interstitial lung disease Irritable bowel syndrome (~2012) Measles (~1951) Mixed hyperlipidemia Mumps (~1951) 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 Stage 3b chronic kidney disease (CKD) Systolic CHF, chronic Venous (peripheral) insufficiency Surgical History Anesthesia History of back surgery (~2012) History of left heart catheterization (LHC) History of throat surgery (~1974) Family History Father Cancer History of heart disease Mother Hypertension Social History household members: spouse and children Smoking Status: Never smoker alcohol intake: current Smoking Status: Never smoker alcohol intake frequency: holidays/special occasions only Substance Use Type: does not use Exam Initial Vital Signs Initial Vital Signs: Vital Signs Temperature 98.8 F 11/14/22 08:40 Pulse Rate 110 H 11/14/22 08:40 Respiratory Rate 20 11/14/22 08:40 Blood Pressure 162/72 H 11/14/22 08:40 Pulse Oximetry 98 11/14/22 08:40 Oxygen Delivery Method Room Air 11/14/22 08:40 GENERAL: Alert chronically ill 76-year-old female HEENT: Head atraumatic,EOMI, pupils reactive, face symmetric, moist mucous membranes CARDIOVASCULAR: Regular rate and rhythm without murmurs, rubs or gallops. RESPIRATORY: Mild tachypnea with conversational dyspnea no wheezes rales or rhonchi ABDOMEN: Soft, nontender. Normoactive bowel sounds all 4 quadrants. No guarding or rebound. BACK: Severe lumbar pain : No CVA tenderness EXTREMITIES: Normal range of motion, no clubbing or edema. Neurovascularly intact NEUROLOGICAL: Alert and oriented x4. SKIN: Lower extremities not warm no erythema dopplerable pulses in feet Course Orders Ordered: ED Orders 11/14/22 11:00 MAG [Magnesium] Stat Trop I [Troponin I] Stat 11/14/22 12:08 EKG-12 Lead Routine 11/15/22 05:00 Basic Metabolic Panel Routine Complete Blood Count AUTO DIFF Routine Magnesium Routine Acetaminophen (Acetaminophen 325 Mg Tablet) 650 mg PO Q6H BRANDON Last Admin: 11/14/22 14:12 Dose: 650 mg Documented By: TLS Dextrose (Dextrose 50 % In Water 25 Gm/50 Ml Syringe) 25 gm IV PRN PRN PRN Reason: Hypoglycemia Furosemide (Furosemide 40 Mg/4 Ml Vial) 40 mg IV Q12HR BRANDON Ceftriaxone Sodium 1,000 mg/ (Sodium Chloride) 100 mls @ 200 mls/hr IV Q24H BRANDON Last Admin: 11/14/22 16:56 Dose: 200 mls/hr Documented By: LDV Sodium Chloride (Normal Saline 0.9%) 250 mls @ 21 mls/hr IV Q24H PRN PRN Reason: Flush Insulin Human Lispro (Insulin Lispro 100 Unit/Ml 3ml Vial) 0 unit SUBCUT ACHS [facility]; Protocol Last Admin: 11/14/22 17:16 Dose: Not Given Documented By: LDV Naloxone HCl (Naloxone 0.4 Mg/Ml Vial) 0.2 mg IV Q2MIN PRN PRN Reason: Opiate Reversal Ondansetron HCl (Ondansetron 4 Mg/2 Ml Inj) 4 mg IV Q8HR PRN PRN Reason: Nausea And Vomiting Sodium Chloride (Sodium Chloride 0.9% Flush) 10 ml IV PRN PRN PRN Reason: Flush Sodium Chloride (Sodium Chloride 0.9% Flush) 10 ml IV BID [facility] Discontinued Medications Furosemide (Furosemide 40 Mg/4 Ml Vial) 40 mg IV NOW ONE Stop: 11/14/22 09:51 Last Admin: 11/14/22 10:16 Dose: 40 mg Documented By: ADY Hydromorphone HCl (Hydromorphone 0.5 Mg Inj) 0.5 mg IV NOW ONE Stop: 11/14/22 11:32 Last Admin: 11/14/22 11:45 Dose: 0.5 mg Documented By: NARENDRA Dextrose (D10w) 250 mls @ 100 mls/hr IV PRN PRN PRN Reason: Hypoglycemia Last Infusion: 11/14/22 13:31 Dose: 0 mls/hr Documented By: Admin: 11/14/22 11:00 Dose: 100 mls/hr Documented By: NARENDRA Vital Signs Vital signs: Vital Signs - 8 hr 11/14/22 11:00 11/14/22 11:30 11/14/22 11:52 Pulse Rate 119 H 115 H 104 H Respiratory Rate 31 H 29 H 35 H Blood Pressure Pulse Oximetry 95 96 97 Oxygen Delivery Method 11/14/22 11:52 11/14/22 12:00 11/14/22 12:00 Pulse Rate 105 H Respiratory Rate 25 H Blood Pressure 103/57 L 106/56 L Pulse Oximetry 95 Oxygen Delivery Method Room Air 11/14/22 12:30 11/14/22 12:30 11/14/22 13:00 Pulse Rate 101 H Respiratory Rate 29 H Blood Pressure 99/55 L 94/50 L Pulse Oximetry 92 Oxygen Delivery Method 11/14/22 13:00 11/14/22 13:13 11/14/22 13:13 Pulse Rate 91 H 92 H Respiratory Rate 28 H 24 Blood Pressure 87/52 L Pulse Oximetry 94 94 Oxygen Delivery Method 11/14/22 13:17 11/14/22 13:17 Pulse Rate 89 Respiratory Rate 27 H Blood Pressure 102/52 L Pulse Oximetry 95 Oxygen Delivery Method MDM - Weakness Lab Data 11/14/22 09:12 11/14/22 09:12 Labs: Lab Results 11/14/22 11/14/22 11/14/22 Range/Units 09:12 09:12 09:12 WBC 7.7 (4.5-11.0) X10^3/uL RBC 4.45 (4.0-5.2) X10^6/uL Hgb 13.7 (12.0-16.0) g/dL Hct 41.5 (36-46) % MCV 93.3 (80-100) fL MCH 30.7 (26-34) PG MCHC 32.9 (30-36) % RDW 18.2 H (11.6-14.8) % Plt Count 122 L (150-400) X10^3/uL Neut % (Auto) 94.1 H (50-75) % Lymph % (Auto) 5.2 L (25-40) % [place] % (Auto) 0.3 L (3-14) % Eos % (Auto) 0.2 L (2-4) % Baso % (Auto) 0.2 (0-2) % Neut # (Auto) 7300 H (4264-7640) /uL Lymph # (Auto) 400 L (5955-9745) /uL [place] # (Auto) 0 (0-900) /uL Eos # (Auto) 0 (0-450) /uL Baso # (Auto) 0 (0-100) /uL Sodium 141 (137-145) mmol/L Potassium 4.4 (3.4-5.1) mmol/L Chloride 111 H (98-107) mmol/L Carbon Dioxide 24 (22-32) mmol/L BUN 41 H (7-17) mg/dL Creatinine 1.51 H (0.52-1.04) mg/dL Estimated GFR 35 L (>60) mL/min BUN/Creatinine Ratio 27.2 H (6-22) Glucose 64 L (80-110) mg/dL Lactate 2.5 H (0.7-2.1) mmol/L Calcium 9.3 (8.4-10.2) mg/dL Magnesium (1.6-2.3) mg/dL Total Bilirubin 1.0 (0.2-1.3) mg/dL AST 31 (14-36) IU/L ALT 30 (<35) IU/L Alkaline Phosphatase 100 (38-126) U/L Total Creatine Kinase 21 L (30-135) U/L Troponin I 0.087 H (0.01-0.034) ng/mL NT-Pro-B Natriuret Pep 02944 H (<450) pg/mL Total Protein 5.9 L (6.3-8.2) g/dL Albumin 3.4 L (3.5-5.0) g/dL Globulin 2.5 (1.7-4.1) g/dL Albumin/Globulin Ratio 1.4 (1.0-2.8) Procalcitonin 0.55 H (<0.5) ng/mL Urine Color Urine Appearance Urine pH (4.5-8.0) Ur Specific [place] (1.000-1.035) Urine Protein (Negative) Urine Glucose (UA) (Negative) g/dL Urine Ketones (NEGATIVE) Urine Occult Blood (Negative) Urine Nitrate (Negative) Urine Bilirubin (NEGATIVE) Urine Urobilinogen (0.2) E.U./dL Ur Leukocyte Esterase (NEGATIVE) Urine RBC (0-5/HPF) Urine WBC (0-5/HPF) Ur Squamous Epith Cells (0-5/HPF) Urine Bacteria (None) Ur Culture Indicated? Chlamy pneumoniae PCR (Not Detect) Adenovirus (PCR) (Not Detect) B. pertussis DNA (PCR) (Not Detecte) B.parapertussis DNA PCR (Not Detecte) Coronavirus OC43 (PCR) (Not Detect) Coronavirus HKU1 (PCR) (Not Detect) Coronavirus 229E (PCR) (Not Detect) SARS-CoV-2 (PCR) (Not Detecte) Coronavirus NL63 (PCR) (Not Detect) Human Metapneumovir PCR (Not Detect) Influenza Type A (PCR) (Not Detect) Influenza Type B (PCR) (Not Detect) M. pneumoniae (PCR) (Not Detect) Parainfluenza 1 (PCR) (Not Detect) Parainfluenza 2 (PCR) (Not Detect) Parainfluenza 3 (PCR) (Not Detect) Parainfluenza 4 (PCR) (Not Detect) RSV (PCR) (Not Detect) Entero/Rhino (PCR) (Not Detect) 11/14/22 11/14/22 11/14/22 Range/Units 09:25 09:41 11:00 WBC (4.5-11.0) X10^3/uL RBC (4.0-5.2) X10^6/uL Hgb (12.0-16.0) g/dL Hct (36-46) % MCV (80-100) fL MCH (26-34) PG MCHC (30-36) % RDW (11.6-14.8) % Plt Count (150-400) X10^3/uL Neut % (Auto) (50-75) % Lymph % (Auto) (25-40) % [place] % (Auto) (3-14) % Eos % (Auto) (2-4) % Baso % (Auto) (0-2) % Neut # (Auto) (6856-3643) /uL Lymph # (Auto) (4312-1227) /uL [place] # (Auto) (0-900) /uL Eos # (Auto) (0-450) /uL Baso # (Auto) (0-100) /uL Sodium (137-145) mmol/L Potassium (3.4-5.1) mmol/L Chloride (98-107) mmol/L Carbon Dioxide (22-32) mmol/L BUN (7-17) mg/dL Creatinine (0.52-1.04) mg/dL Estimated GFR (>60) mL/min BUN/Creatinine Ratio (6-22) Glucose (80-110) mg/dL Lactate (0.7-2.1) mmol/L Calcium (8.4-10.2) mg/dL Magnesium (1.6-2.3) mg/dL Total Bilirubin (0.2-1.3) mg/dL AST (14-36) IU/L ALT (<35) IU/L Alkaline Phosphatase (38-126) U/L Total Creatine Kinase (30-135) U/L Troponin I 0.125 H* (0.01-0.034) ng/mL NT-Pro-B Natriuret Pep (<450) pg/mL Total Protein (6.3-8.2) g/dL Albumin (3.5-5.0) g/dL Globulin (1.7-4.1) g/dL Albumin/Globulin Ratio (1.0-2.8) Procalcitonin (<0.5) ng/mL Urine Color Yellow Urine Appearance Sl cloudy Urine pH 5.0 (4.5-8.0) Ur Specific [place] 1.015 (1.000-1.035) Urine Protein Trace H (Negative) Urine Glucose (UA) 1+ H (Negative) g/dL Urine Ketones Negative (NEGATIVE) Urine Occult Blood 2+ H (Negative) Urine Nitrate Positive H (Negative) Urine Bilirubin Negative (NEGATIVE) Urine Urobilinogen 0.2 (0.2) E.U./dL Ur Leukocyte Esterase 2+ H (NEGATIVE) Urine RBC 5-10/hpf H (0-5/HPF) Urine WBC 5-10/hpf H (0-5/HPF) Ur Squamous Epith Cells 1-5 /hpf (0-5/HPF) Urine Bacteria Moderate (10-30) H (None) Ur Culture Indicated? Specimen cultured Chlamy pneumoniae PCR Not detected (Not Detect) Adenovirus (PCR) Not detected (Not Detect) B. pertussis DNA (PCR) Not detected (Not Detecte) B.parapertussis DNA PCR Not detected (Not Detecte) Coronavirus OC43 (PCR) Not detected (Not Detect) Coronavirus HKU1 (PCR) Not detected (Not Detect) Coronavirus 229E (PCR) Not detected (Not Detect) SARS-CoV-2 (PCR) Detected H (Not Detecte) Coronavirus NL63 (PCR) Not detected (Not Detect) Human Metapneumovir PCR Not detected (Not Detect) Influenza Type A (PCR) Not detected (Not Detect) Influenza Type B (PCR) Not detected (Not Detect) M. pneumoniae (PCR) Not detected (Not Detect) Parainfluenza 1 (PCR) Not detected (Not Detect) Parainfluenza 2 (PCR) Not detected (Not Detect) Parainfluenza 3 (PCR) Not detected (Not Detect) Parainfluenza 4 (PCR) Not detected (Not Detect) RSV (PCR) Not detected (Not Detect) Entero/Rhino (PCR) Not detected (Not Detect) 11/14/22 11/14/22 Range/Units 11:00 11:00 WBC (4.5-11.0) X10^3/uL RBC (4.0-5.2) X10^6/uL Hgb (12.0-16.0) g/dL Hct (36-46) % MCV (80-100) fL MCH (26-34) PG MCHC (30-36) % RDW (11.6-14.8) % Plt Count (150-400) X10^3/uL Neut % (Auto) (50-75) % Lymph % (Auto) (25-40) % [place] % (Auto) (3-14) % Eos % (Auto) (2-4) % Baso % (Auto) (0-2) % Neut # (Auto) (3250-0145) /uL Lymph # (Auto) (6101-2071) /uL [place] # (Auto) (0-900) /uL Eos # (Auto) (0-450) /uL Baso # (Auto) (0-100) /uL Sodium (137-145) mmol/L Potassium (3.4-5.1) mmol/L Chloride (98-107) mmol/L Carbon Dioxide (22-32) mmol/L BUN (7-17) mg/dL Creatinine (0.52-1.04) mg/dL Estimated GFR (>60) mL/min BUN/Creatinine Ratio (6-22) Glucose (80-110) mg/dL Lactate 1.9 (0.7-2.1) mmol/L Calcium (8.4-10.2) mg/dL Magnesium 2.2 (1.6-2.3) mg/dL Total Bilirubin (0.2-1.3) mg/dL AST (14-36) IU/L ALT (<35) IU/L Alkaline Phosphatase (38-126) U/L Total Creatine Kinase (30-135) U/L Troponin I (0.01-0.034) ng/mL NT-Pro-B Natriuret Pep (<450) pg/mL Total Protein (6.3-8.2) g/dL Albumin (3.5-5.0) g/dL Globulin (1.7-4.1) g/dL Albumin/Globulin Ratio (1.0-2.8) Procalcitonin (<0.5) ng/mL Urine Color Urine Appearance Urine pH (4.5-8.0) Ur Specific [place] (1.000-1.035) Urine Protein (Negative) Urine Glucose (UA) (Negative) g/dL Urine Ketones (NEGATIVE) Urine Occult Blood (Negative) Urine Nitrate (Negative) Urine Bilirubin (NEGATIVE) Urine Urobilinogen (0.2) E.U./dL Ur Leukocyte Esterase (NEGATIVE) Urine RBC (0-5/HPF) Urine WBC (0-5/HPF) Ur Squamous Epith Cells (0-5/HPF) Urine Bacteria (None) Ur Culture Indicated? Chlamy pneumoniae PCR (Not Detect) Adenovirus (PCR) (Not Detect) B. pertussis DNA (PCR) (Not Detecte) B.parapertussis DNA PCR (Not Detecte) Coronavirus OC43 (PCR) (Not Detect) Coronavirus HKU1 (PCR) (Not Detect) Coronavirus 229E (PCR) (Not Detect) SARS-CoV-2 (PCR) (Not Detecte) Coronavirus NL63 (PCR) (Not Detect) Human Metapneumovir PCR (Not Detect) Influenza Type A (PCR) (Not Detect) Influenza Type B (PCR) (Not Detect) M. pneumoniae (PCR) (Not Detect) Parainfluenza 1 (PCR) (Not Detect) Parainfluenza 2 (PCR) (Not Detect) Parainfluenza 3 (PCR) (Not Detect) Parainfluenza 4 (PCR) (Not Detect) RSV (PCR) (Not Detect) Entero/Rhino (PCR) (Not Detect) Point of Care Testing Glucose POC 103 Imaging Data Chest x-ray: Radiologist Impression: PROCEDURE:? XR CHEST 1V ? INDICATIONS:? short of breath ? TECHNIQUE:? One view of the chest was acquired.? ? COMPARISON:? [facility], CT, PE STUDY (CTA CHEST), 12/04/2011, 3:10.? [facility], CT, CT ANGIO CHEST PE PROTOCOL, 09/12/2022, 17:37.? [facility], CT, CT ANGIO CHEST PE PROTOCOL, 08/18/2022, 16:47.? [facility], CR, XR CHEST 2V, 09/21/2022, 14:41. ? FINDINGS:? ? Surgical changes and devices:? None.? ? Lungs and pleura:? There are small bilateral pulmonary nodules.? Mild interstitial pulmonary edema.? No pleural effusions or pneumothorax.? ? Mediastinum:? Mediastinal contours appear normal.? Heart size is normal.? There are bilateral prominent epicardial fat pads noted on the CTs.? ? Bones and chest wall:? No suspicious bony lesions.? Overlying soft tissues appear unremarkable.? ? IMPRESSION:? ? 1. Mild congestive heart failure. ? 2. Bilateral small pulmonary nodules. ? Comment:? Consider nonemergent chest CT after symptoms resolve to further evaluate the pulmonary nodules. ? ? Dictated by: Brandon Pichardo M.D. on 11/14/2022 at 9:47 ECG Data Interpretation: EKG 1. Sinus rhythm ST elevation in V2 but wide complex Repeat EKG sinus rhythm persistent ST elevation in if he [address] elevations no [address] depressions MDM Narrative Medical decision making narrative: Patient 76-year-old female who presents with generalized weakness, hypertension hyperlipidemia, she is found to COVID positive congestive heart failure with the indeterminate troponin. Called and spoken with Dr. Van who reports at she had an echocardiogram done on November 07 which showed an EF of 30-35% at that time she had AFib with RVR. In August she had a fall cardiac catheterizations she was found to have a 50-60% lesion in the left circumflex sat was not stentable. Aware [place] [address] recommends increasing her furosemide. She has an appointment Dr. Patel to be evaluated in 4 days but no appointment for any sort of procedure. She is requiring 1-2 L of oxygen she is some mild conversational dyspnea she is given Lasix 40 mg but has not actually put out any urine in the pure [place]. Dr. Daniels accepts patient Discharge Plan Departure Patient Disposition: Admitted As Inpatient Clinical Impression: COVID-19, CHF (congestive heart failure), Non-ST elevation SC (NSTEMI) Admit Date/Time: 11/14/22 13:25 Admit Provider: Justin Daniels
--- NOTE | 2022-11-14 08:57 | PC.NURSE ---
Pt states that she is experiencing some SOB. Bilateral fine crackles auscultated in bases. 3+ pitting edema bilaterally in lower extremities and skin is dry & cool with scattered bruising. Weak bilateral pedal pulses via doppler. Pt states that she has back pain and her gave her a percocet at approximately 0800 prior to calling EMS.
--- NOTE | 2022-11-14 09:02 | DI.RAD.S_ITS ---
PROCEDURE: XR CHEST 1V INDICATIONS: short of breath TECHNIQUE: One view of the chest was acquired. COMPARISON: [facility], CT, PE STUDY (CTA CHEST), 12/04/2011, 3:10. [facility], CT, CT ANGIO CHEST PE PROTOCOL, 09/12/2022, 17:37. [facility], CT, CT ANGIO CHEST PE PROTOCOL, 08/18/2022, 16:47. [facility], CR, XR CHEST 2V, 09/21/2022, 14:41. FINDINGS: Surgical changes and devices: None. Lungs and pleura: There are small bilateral pulmonary nodules. Mild interstitial pulmonary edema. No pleural effusions or pneumothorax. Mediastinum: Mediastinal contours appear normal. Heart size is normal. There are bilateral prominent epicardial fat pads noted on the CTs. Bones and chest wall: No suspicious bony lesions. Overlying soft tissues appear unremarkable. IMPRESSION: 1. Mild congestive heart failure. 2. Bilateral small pulmonary nodules. Comment: Consider nonemergent chest CT after symptoms resolve to further evaluate the pulmonary nodules. Dictated by: Brandon Pichardo M.D. on 11/14/2022 at 9:47 Approved by: Brandon Pichardo M.D. on 11/14/2022 at 10:01
[2022-11-14 09:23] LABS: Add Manual Diff / Slide Review NO; Basophils Absolute Auto 0 /uL (0-100); Basophils Percent Auto 0.2 % (0-2); Eosinophils Absolute Auto 0 /uL (0-450); Eosinophils Percent Auto 0.2 % (2-4); Hematocrit 41.5 % (36-46); Hemoglobin 13.7 g/dL (12.0-16.0); Lymphocytes Absolute Auto 400 /uL (1100-4500); Lymphocytes Percent Auto 5.2 % (25-40); Mean Corpuscular HGB Conc 32.9 % (30-36); Mean Corpuscular Hemoglobin 30.7 PG (26-34); Mean Corpuscular Volume 93.3 fL (80-100); Monocytes Absolute Auto 0 /uL (0-900); Monocytes Percent Auto 0.3 % (3-14); Neutrophils Absolute Auto 7300 /uL (1500-7000); Neutrophils Percent Auto 94.1 % (50-75); Platelet Count 122 X10^3/uL (150-400); Red Blood Cell Count 4.45 X10^6/uL (4.0-5.2); Red Cell Distribution Width 18.2 % (11.6-14.8); White Blood Cell Count 7.7 X10^3/uL (4.5-11.0)
[2022-11-14 09:31] LABS: Lactate (Lactic Acid) 2.5 mmol/L (0.7-2.1)
[2022-11-14 09:32] LABS: Alanine Aminotransferase 30 IU/L (<35); Albumin 3.4 g/dL (3.5-5.0); Albumin Globulin Ratio 1.4 (1.0-2.8); Alkaline Phosphatase 100 U/L (38-126); Aspartate Aminotransferase 31 IU/L (14-36); BUN Creatinine Ratio 27.2 (6-22); Blood Urea Nitrogen 41 mg/dL (7-17); Calcium 9.3 mg/dL (8.4-10.2); Carbon Dioxide 24 mmol/L (22-32); Chloride 111 mmol/L (98-107); Creatine Kinase 21 U/L (30-135); Estimated Glomerular Filt Rate 35 mL/min (>60); Globulin 2.5 g/dL (1.7-4.1); Glucose 64 mg/dL (80-110); HEMOLYSIS 18 (0-50); Potassium 4.4 mmol/L (3.4-5.1); Sodium 141 mmol/L (137-145); Total Protein 5.9 g/dL (6.3-8.2)
[2022-11-14 09:44] LABS: NT-proBNP (BNP-Adult 18+) 15800 pg/mL (<450); Troponin I 0.087 ng/mL (0.01-0.034)
[2022-11-14 09:48] LABS: Procalcitonin 0.55 ng/mL (<0.5)
--- NOTE | 2022-11-14 09:49 | PC.NURSE ---
PRINT PRODUCTION MANAGER note: This PRINT PRODUCTION MANAGER assisted pt. with bedpan use, wiped clean shahzad area and provided a new brief for pt. call light within reach and encouraged pt. to use call light.
[2022-11-14 09:51] LABS: Appearance Urine UA SL CLOUDY; Bilirubin Urine UA NEGATIVE (NEGATIVE); Color Urine UA YELLOW; Glucose Urine UA 1+ g/dL (Negative); Ketones Urine UA NEGATIVE (NEGATIVE); Leukocyte Esterase Urine UA 2+ (NEGATIVE); Nitrite Urine UA POSITIVE (Negative); Occult Blood Urine UA 2+ (Negative); Protein Urine UA TRACE (Negative); Specific Gravity Urine UA 1.015 (1.000-1.035); Urobilinogen Urine UA 0.2 E.U./dL (0.2)
[2022-11-14 09:54] LABS: Bacteria Urine Moderate (10-30); RBC Urine 5-10/HPF (0-5/HPF); Squamous Epithelial Cell Urine 1-5 /HPF (0-5/HPF); WBC Urine 5-10/HPF (0-5/HPF)
[2022-11-14 09:55] LABS: Culture Indicated Urine Specimen Cultured
[2022-11-14] MEDS: FUROSEMIDE 40 MG/4 ML VIAL IV ×2 (10:16→23:45)
[2022-11-14 10:40] LABS: Adenovirus Not Detected (Not Detect); B. parapertussis Not Detected (Not Detecte); Bordetella pertussis Not Detected (Not Detecte); Chlamydophila pneumoniae Not Detected (Not Detect); Coronavirus 229E Not Detected (Not Detect); Coronavirus HKU1 Not Detected (Not Detect); Coronavirus NL 63 Not Detected (Not Detect); Coronavirus OC43 Not Detected (Not Detect); Human Metapneumovirus Not Detected (Not Detect); Human Rhinovirus/Enterovirus Not Detected (Not Detect); Influenza A Not Detected (Not Detect); Influenza B Not Detected (Not Detect); Mycoplasma pneumoniae Not Detected (Not Detect); Parainfluenza Virus 1 Not Detected (Not Detect); Parainfluenza Virus 2 Not Detected (Not Detect); Parainfluenza Virus 3 Not Detected (Not Detect); Parainfluenza Virus 4 Not Detected (Not Detect); Respiratory Syncytial Virus Not Detected (Not Detect)
[2022-11-14 10:41] LABS: SARS- CoV-2 Detected (Not Detecte)
[2022-11-14] MEDS: DEXTROSE 10 % IN WATER 250 ML 100 ML IV (11:00)
[2022-11-14 11:19] LABS: Reflexed Lactate in 2 Hours Y
[2022-11-14 11:41] LABS: Lactate 2HR (Lactic Acid Rflx) 1.9 mmol/L (0.7-2.1)
[2022-11-14 11:44] LABS: Troponin I 0.125 ng/mL (0.01-0.034)
[2022-11-14] MEDS: HYDROMORPHONE 0.5 MG INJ IV (11:45)
[2022-11-14 13:02] LABS: Magnesium 2.2 mg/dL (1.6-2.3)
[2022-11-14] MEDS: ACETAMINOPHEN 325 MG TABLET 650 MG PO ×2 (14:12→20:14)
[2022-11-14] MEDS: cefTRIAXone 1,000 MG in SODIUM CHLORIDE 0.9% 100 ML 200 MG IV (16:56)
--- NOTE | 2022-11-14 19:56 | P.HP_ITS ---
History of Present Illness History of Present Illness Date Patient Seen: 11/14/22 Time Patient Seen: 18:00 Chief complaint: Generalized weakness Narrative: Ms. Burger is a 76W with PMH chronic adrenal insufficiency, CKD stage 3, hx of VTE, CHFrEF, ILD, CAD with LCx of 50% and no intervention indicated who presents to the hospital with chills. She notes she has some back discomfort and chills. She also had mild shortness of breath. She had swelling in her legs. She had no known sick contacts and has been vaccinated against COVID. She states she is being evaluated for pacemaker later this week by her double bass player. Her last EF is notable from earlier this month and was 35%. In the ED workup was done, vitals notable for afebrile, heart rate 110s, respiratory rate 20s, blood pressure 160s/70s, sats 98% room air. Labs reviewed by me and notable for WBC 7.7, hgb 13.7, plts 122. BUN 41, creatinine 1.51. Glucose 64. Lactate 2.4. Trop 0.087->0.12. BNP 56764. Procal 0.55. Urine positive for leuk esterase, nitrates, bacteria. COVID positive. Chest xray reviewed by me and notable for pulmonary edema. She was admitte dfor further treatment. [facility] Medical History Atypical migraine Bilateral lower extremity edema Chicken pox (~1951) Chronic adrenal insufficiency Chronic anticoagulation Chronic diarrhea Chronic kidney disease Hearing loss (~2011) History of DVT (deep vein thrombosis) History of kidney disease (~2002) Hyperlipidemia Hypertension Interstitial lung disease Irritable bowel syndrome (~2012) Measles (~1951) Mixed hyperlipidemia Mumps (~1951) 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 Stage 3b chronic kidney disease (CKD) Systolic CHF, chronic Venous (peripheral) insufficiency Surgical History Anesthesia History of back surgery (~2012) History of left heart catheterization (LHC) History of throat surgery (~1974) Family History Father Cancer History of heart disease Mother Hypertension Social History household members: spouse and children Smoking Status: Never smoker alcohol intake: current Meds Home Medications and Allergies Home Medications Medication Instructions Recorded Confirmed Type polyethylene glycol 3350 17 gram 17 gram PO DAILY PRN Constipation 10/09/17 10/28/22 History oral powder packet potassium chloride 20 mEq 20 meq PO DAILY 06/10/22 10/28/22 History tablet,extended release(part/cryst) citalopram 10 mg tablet 10 mg PO DAILY 09/12/22 10/28/22 History empagliflozin 25 mg tablet 12.5 mg PO DAILY 09/12/22 10/28/22 History (Jardiance) levothyroxine 100 mcg tablet 100 mcg PO DAILY 09/12/22 10/28/22 History prednisone 5 mg tablet 15 mg PO DAILY 09/12/22 10/28/22 History acetaminophen 500 mg tablet 500 mg PO Q6H PRN Pain (Scale 09/14/22 10/28/22 History Score 1-3) ondansetron HCl 4 mg tablet 4 mg PO Q4H PRN Nausea 09/14/22 10/28/22 History oxycodone-acetaminophen 5 mg-325 1 tab PO Q4H PRN Pain (Scale Score 09/15/22 10/28/22 Rx mg tablet 7-10) #10 tabs apixaban 2.5 mg tablet (Eliquis) 2.5 mg PO BID 10/28/22 10/28/22 History carvedilol 3.125 mg tablet 3.125 mg PO BID 10/28/22 10/28/22 History cholecalciferol (vitamin D3) 125 5,000 unit PO DAILY 10/28/22 10/28/22 History mcg (5,000 unit) tablet (Vitamin D3) lidocaine 4 % topical patch 1 patch topical DAILY PRN 10/28/22 10/28/22 History pantoprazole 40 mg tablet,delayed 40 mg PO BID #180 tabs 11/09/22 Rx release Allergies Allergy/AdvReac Type Severity Reaction Status Date / Time oxybutynin Allergy Severe tongue Verified 10/28/22 09:28 swells Sulfa (Sulfonamide Allergy Severe fever and Verified 10/28/22 09:28 Antibiotics) rash [SULFA (SULFONAMIDE ANTIBIOTICS)] sertraline Allergy Intermediate Diarrhea Verified 10/28/22 09:28 NSAIDS (Non-Steroidal Allergy Unknown Verified 10/28/22 09:28 Anti-Inflamma [NSAIDS (NON-STEROIDAL ANTI-INFLAMMA] cephalexin Allergy rash Verified 10/28/22 09:28 amoxicillin [AMOXICILLIN] AdvReac Severe rash and Verified 11/14/22 14:08 diarrhea codeine [CODEINE] AdvReac Mild headache Verified 10/28/22 09:28 duloxetine [From CYMBALTA] AdvReac Mild vomiting Verified 10/28/22 09:28 morphine [MORPHINE] AdvReac Mild vomiting Verified 10/28/22 09:28 nitrofurantoin AdvReac Mild vomiting Verified 10/28/22 09:28 [From MACROBID] carisoprodol AdvReac Verified 10/28/22 09:28 piroxicam [From Feldene] AdvReac Verified 10/28/22 09:28 tolterodine AdvReac Verified 10/28/22 09:28 Review of Systems Review of Systems Narrative: 14 systems reviewed and negative aside from what is noted in HPI Exam Vital Signs (past 8 hours): - 11/14/22 12:00 11/14/22 12:00 11/14/22 12:30 Temperature Pulse Rate 105 H Respiratory Rate 25 H Blood Pressure 106/56 L 99/55 L Pulse Oximetry 95 Oxygen Delivery Method Room Air Oxygen Flow Rate 11/14/22 12:30 11/14/22 13:00 11/14/22 13:00 Temperature Pulse Rate 101 H 91 H Respiratory Rate 29 H 28 H Blood Pressure 94/50 L Pulse Oximetry 92 94 Oxygen Delivery Method Oxygen Flow Rate 11/14/22 13:13 11/14/22 13:13 11/14/22 13:17 Temperature Pulse Rate 92 H Respiratory Rate 24 Blood Pressure 87/52 L 102/52 L Pulse Oximetry 94 Oxygen Delivery Method Oxygen Flow Rate 11/14/22 13:17 11/14/22 13:58 11/14/22 18:18 Temperature 97.7 F 97.1 F L Pulse Rate 89 88 85 Respiratory Rate 27 H 16 16 Blood Pressure 113/57 L 105/48 L Pulse Oximetry 95 97 99 Oxygen Delivery Method Oxygen Flow Rate 0 0 Oxygen Delivery Method Room Air Oxygen Flow Rate 0 Narrative Exam Narrative: GEN: no acute distress CV: regular, no murmurs PULM: coarse breath sounds bilaterally ABD: soft, nontender EXT; warm and well perfused, 1+ edema Objective Labs 11/14/22 09:12 11/14/22 09:12 Labs: Laboratory Results - last 24 hr 11/14/22 11/14/22 11/14/22 09:12 09:12 09:12 WBC 7.7 RBC 4.45 Hgb 13.7 Hct 41.5 MCV 93.3 MCH 30.7 MCHC 32.9 RDW 18.2 H Plt Count 122 L Neut % (Auto) 94.1 H Lymph % (Auto) 5.2 L [place] % (Auto) 0.3 L Eos % (Auto) 0.2 L Baso % (Auto) 0.2 Neut # (Auto) 7300 H Lymph # (Auto) 400 L [place] # (Auto) 0 Eos # (Auto) 0 Baso # (Auto) 0 Sodium 141 Potassium 4.4 Chloride 111 H Carbon Dioxide 24 BUN 41 H Creatinine 1.51 H Estimated GFR 35 L BUN/Creatinine Ratio 27.2 H Glucose 64 L Lactate 2.5 H Calcium 9.3 Magnesium Total Bilirubin 1.0 AST 31 ALT 30 Alkaline Phosphatase 100 Total Creatine Kinase 21 L Troponin I 0.087 H NT-Pro-B Natriuret Pep 04858 H Total Protein 5.9 L Albumin 3.4 L Globulin 2.5 Albumin/Globulin Ratio 1.4 Procalcitonin 0.55 H Urine Color Urine Appearance Urine pH Ur Specific [place] Urine Protein Urine Glucose (UA) Urine Ketones Urine Occult Blood Urine Nitrate Urine Bilirubin Urine Urobilinogen Ur Leukocyte Esterase Urine RBC Urine WBC Ur Squamous Epith Cells Urine Bacteria Ur Culture Indicated? Chlamy pneumoniae PCR Adenovirus (PCR) B. pertussis DNA (PCR) B.parapertussis DNA PCR Coronavirus OC43 (PCR) Coronavirus HKU1 (PCR) Coronavirus 229E (PCR) SARS-CoV-2 (PCR) Coronavirus NL63 (PCR) Human Metapneumovir PCR Influenza Type A (PCR) Influenza Type B (PCR) M. pneumoniae (PCR) Parainfluenza 1 (PCR) Parainfluenza 2 (PCR) Parainfluenza 3 (PCR) Parainfluenza 4 (PCR) RSV (PCR) Entero/Rhino (PCR) 11/14/22 11/14/22 11/14/22 09:25 09:41 11:00 WBC RBC Hgb Hct MCV MCH MCHC RDW Plt Count Neut % (Auto) Lymph % (Auto) [place] % (Auto) Eos % (Auto) Baso % (Auto) Neut # (Auto) Lymph # (Auto) [place] # (Auto) Eos # (Auto) Baso # (Auto) Sodium Potassium Chloride Carbon Dioxide BUN Creatinine Estimated GFR BUN/Creatinine Ratio Glucose Lactate Calcium Magnesium Total Bilirubin AST ALT Alkaline Phosphatase Total Creatine Kinase Troponin I 0.125 H* NT-Pro-B Natriuret Pep Total Protein Albumin Globulin Albumin/Globulin Ratio Procalcitonin Urine Color Yellow Urine Appearance Sl cloudy Urine pH 5.0 Ur Specific [place] 1.015 Urine Protein Trace H Urine Glucose (UA) 1+ H Urine Ketones Negative Urine Occult Blood 2+ H Urine Nitrate Positive H Urine Bilirubin Negative Urine Urobilinogen 0.2 Ur Leukocyte Esterase 2+ H Urine RBC 5-10/hpf H Urine WBC 5-10/hpf H Ur Squamous Epith Cells 1-5 /hpf Urine Bacteria Moderate (10-30) H Ur Culture Indicated? Specimen cultured Chlamy pneumoniae PCR Not detected Adenovirus (PCR) Not detected B. pertussis DNA (PCR) Not detected B.parapertussis DNA PCR Not detected Coronavirus OC43 (PCR) Not detected Coronavirus HKU1 (PCR) Not detected Coronavirus 229E (PCR) Not detected SARS-CoV-2 (PCR) Detected H Coronavirus NL63 (PCR) Not detected Human Metapneumovir PCR Not detected Influenza Type A (PCR) Not detected Influenza Type B (PCR) Not detected M. pneumoniae (PCR) Not detected Parainfluenza 1 (PCR) Not detected Parainfluenza 2 (PCR) Not detected Parainfluenza 3 (PCR) Not detected Parainfluenza 4 (PCR) Not detected RSV (PCR) Not detected Entero/Rhino (PCR) Not detected 11/14/22 11/14/22 11:00 11:00 WBC RBC Hgb Hct MCV MCH MCHC RDW Plt Count Neut % (Auto) Lymph % (Auto) [place] % (Auto) Eos % (Auto) Baso % (Auto) Neut # (Auto) Lymph # (Auto) [place] # (Auto) Eos # (Auto) Baso # (Auto) Sodium Potassium Chloride Carbon Dioxide BUN Creatinine Estimated GFR BUN/Creatinine Ratio Glucose Lactate 1.9 Calcium Magnesium 2.2 Total Bilirubin AST ALT Alkaline Phosphatase Total Creatine Kinase Troponin I NT-Pro-B Natriuret Pep Total Protein Albumin Globulin Albumin/Globulin Ratio Procalcitonin Urine Color Urine Appearance Urine pH Ur Specific [place] Urine Protein Urine Glucose (UA) Urine Ketones Urine Occult Blood Urine Nitrate Urine Bilirubin Urine Urobilinogen Ur Leukocyte Esterase Urine RBC Urine WBC Ur Squamous Epith Cells Urine Bacteria Ur Culture Indicated? Chlamy pneumoniae PCR Adenovirus (PCR) B. pertussis DNA (PCR) B.parapertussis DNA PCR Coronavirus OC43 (PCR) Coronavirus HKU1 (PCR) Coronavirus 229E (PCR) SARS-CoV-2 (PCR) Coronavirus NL63 (PCR) Human Metapneumovir PCR Influenza Type A (PCR) Influenza Type B (PCR) M. pneumoniae (PCR) Parainfluenza 1 (PCR) Parainfluenza 2 (PCR) Parainfluenza 3 (PCR) Parainfluenza 4 (PCR) RSV (PCR) Entero/Rhino (PCR) Assessment & Plan Assessment & Plan narrative: 1. Acute respiratory distresss -secondary to COVID pneumonia and acute CHF exacerbation, systolic -ED discussed with double bass player who recommended admit here and diurese -continue with IV lasix, systolic BP >100 for now, so will continue lasix -ECHO recently done within last few weeks which showed EF 30-35% -no indication for remdesivir and dexamethasone for now 2. UTI -UA positive -follow up urine cultures -continue ceftriaxone for now 3. Chronic adrenal insufficiency -continue prednisone 15mg daily -if not improving, or hypotensive, will order stress dose steroids 4. CKD -creatinine 1.51, appears at baseline 5. History of VTE -continue apixaban 6. Depression -continue ssri 7. Hypothyroid -continue synthroid I have discussed plan and obtained history from patient. I have discussed plan of care with ED physician and bedside nurse. I have reviewed labs, imaging. CODE: Full Proxy: Renae Logan, daughter Quality VTE Deep Vein Thrombosis/Pulmonary Embolism Present on Admission: No
[2022-11-14] MEDS: predniSONE 5 MG TABLET 15 MG PO (20:14)
[2022-11-14] MEDS: APIXABAN 5 MG TABLET 2.5 MG PO (20:14)
[2022-11-14] MEDS: SODIUM CHLORIDE 0.9% FLUSH 10 ML IV ×2 (20:16→23:45)
[2022-11-15] VITALS (7 sets, daily range): BP systolic 131–147; BP diastolic 63–87; PULSE 77–100; RESP 16–20; TEMP 35.9–36.6; O2SAT 96–99
--- NOTE | 2022-11-15 00:51 | PC.NURSE ---
Patient is alert and oriented although she thought she was at [facility] rather than [place]. Breath sounds CTA with RA sat of 97%; states she has chronic SOB at exertion which has not worsened. HRR w/telemetry reading of SR; BP elevated at 147/63. Denies nausea. BT present and had BM on previous shift. Has incontinence of urine so has external catheter is place as is receiving Lasix q12h. Is able to turn herself in bed. Gait not assessed but previous RN reported [place] [facility] [place]er as has generalized weakness. Denies pain and is on scheduled tylenol but states she has chronic bilateral hip and left shoulder pain. 1+ edema in bilateral LE. Extensive generalized bruising noted. Has dressings to right forearm and LE which are CDI. Declines use of SCD's as reports they cause increased pain in LE; reminded to ankle wave. On covid precautions although denies any covid symptoms at this time. Fall risk score is high and bed alarm is activated.
[2022-11-15 01:58] LABS: CTX-M Resistance DETECTED (Not Detect); IMP Resistance Not Detected (Not Detect); KPC Resistance Not Detected (Not Detect); NDM Resistance Not Detected (Not Detect); OXA-48-like Resistance Not Detected (Not Detect); VIM Resistance Not Detected (Not Detect); mcr-1 Resistance Not Detected (Not Detect)
[2022-11-15 01:59] LABS: Acinetobacter calcoa-baumannii Not Detected (Not Detect); Enterococcus faecalis Not Detected (Not Detect); Enterococcus faecium Not Detected (Not Detect); Listeria monocytogenes Not Detected (Not Detect); Staphylococcus epidermidis Not Detected (Not Detect); Staphylococcus lugdunensis Not Detected (Not Detect); Staphylococcus species Not Detected (Not Detect); Streptococcus agalactiae (Gr B Not Detected (Not Detect); Streptococcus pneumonia Not Detected (Not Detect); Streptococcus pyogenes (Gr A) Not Detected (Not Detect); Streptococcus species Not Detected (Not Detect)
[2022-11-15 02:00] LABS: Bacteroides fragilis Not Detected (Not Detect); Enterobacter cloacae complex Not Detected (Not Detect); Enterobacterales DETECTED (Not Detect); Klebsiella aerogenes Not Detected (Not Detect); Proteus species Not Detected (Not Detect); Salmonella species Not Detected (Not Detect); Serratia marcescens Not Detected (Not Detect)
[2022-11-15 02:01] LABS: Candida albicans Not Detected (Not Detect); Candida auris Not Detected (Not Detect); Candida glabrata Not Detected (Not Detect); Candida krusei Not Detected (Not Detect); Candida parapsilosis Not Detected (Not Detect); Candida tropicalis Not Detected (Not Detect); Cryptococcus neoformans/gatti Not Detected (Not Detect); Haemophilus influenzae Not Detected (Not Detect); Neisseria meningitidis Not Detected (Not Detect); Pseudomonas aeruginosa Not Detected (Not Detect); Stenotrophomonas maltophilia Not Detected (Not Detect)
[2022-11-15] MEDS: LEVOTHYROXINE 100 MCG TABLET PO (05:58)
[2022-11-15 06:03] LABS: Add Manual Diff / Slide Review NO; Basophils Absolute Auto 0 /uL (0-100); Eosinophils Absolute Auto 0 /uL (0-450); Hematocrit 38.1 % (36-46); Hemoglobin 12.6 g/dL (12.0-16.0); Lymphocytes Absolute Auto 1500 /uL (1100-4500); Lymphocytes Percent Auto 8.4 % (25-40); Mean Corpuscular Hemoglobin 30.6 PG (26-34); Mean Corpuscular Volume 92.8 fL (80-100); Monocytes Absolute Auto 600 /uL (0-900); Monocytes Percent Auto 3.5 % (3-14); Neutrophils Absolute Auto 15600 /uL (1500-7000); Neutrophils Percent Auto 88.1 % (50-75); Platelet Count 110 X10^3/uL (150-400); Red Blood Cell Count 4.11 X10^6/uL (4.0-5.2); White Blood Cell Count 17.7 X10^3/uL (4.5-11.0)
[2022-11-15 06:14] LABS: Blood Urea Nitrogen 47 mg/dL (7-17); Calcium 8.7 mg/dL (8.4-10.2); Carbon Dioxide 27 mmol/L (22-32); Chloride 104 mmol/L (98-107); Estimated Glomerular Filt Rate 30 mL/min (>60); Glucose 96 mg/dL (80-110); HEMOLYSIS < 15 (0-50); Magnesium 2.1 mg/dL (1.6-2.3); Potassium 4.2 mmol/L (3.4-5.1); Sodium 139 mmol/L (137-145)
[2022-11-15] MEDS: cefTRIAXone 2,000 MG in SODIUM CHLORIDE 0.9% 100 ML 200 MG IV (08:36)
[2022-11-15] MEDS: ACETAMINOPHEN 325 MG TABLET 650 MG PO ×3 (08:37→20:28)
[2022-11-15] MEDS: predniSONE 5 MG TABLET 15 MG PO (08:38)
[2022-11-15] MEDS: APIXABAN 5 MG TABLET 2.5 MG PO ×2 (08:38→20:29)
[2022-11-15] MEDS: SODIUM CHLORIDE 0.9% FLUSH 10 ML IV ×2 (08:38→20:29)
[2022-11-15] MEDS: CITALOPRAM 10 MG TABLET PO (08:38)
--- NOTE | 2022-11-15 09:16 | CM.DANOTE ---
Addendum entered by Sonia Sherman R.N. 11/15/22 13:03: Went ahead and asked HUGH Evans medical billing assistant, to send referral over to [facility]. Left a message with Thomas letting him know that it is not yet determined, but to review, due to blood cultures. Patient does not yet have PICC line. Original Note: DCP: Case received, EMR reviewed. Did not enter patient's room, since she is COVID positive. Daughter, Renae Burger, in the room. Called her and introduced self and role. Was able to complete DCP assessment based upon information currently available. Patient is a 76 year old female who admitted yesterday afternoon to the care of the hospitalist team. PCP: Dr. Garcia. Payer: confirmed: Medicare/[employer]. Patient came to the hospital via ambulance secondary to having back pain and chills. Patient has history of HTN, autoimmune disease, CKD state 3, LE bilateral lymphedema. Notes indicate that a recent hospitalization in September, patient was diagnosed with cardiomyopathy and CHF. Patient is under the care of Dr. Patel, and has an appointment with him in the next few days. Patient holds current diagnosis of acute respiratory distress secondary to COVID Pneumonia, UTI. Cultures do note E-Coli, gram negative bacilli, finals still pending. Spoke originally with September at [facility], since patient had been there at last admission. Confirmed that she was discharged in late October. Patient used all of her Medicare days, she would not be eligible for another 60 days for skilled services through her Medicare. Called patient's daughter, Renae Mejia, she is also COORDINATOR OF GENETIC SERVICES. Confirmed that patient is home under [facility] services. She is getting all disciplines, RN, P.T, O.T, and bath aide, not speech. She resides here in [place] with spouse, Bill, and son. She uses [facility], is full care. Discussed long-term with daughter, for she originally stated that she may need to go to skilled for IV ABO, explained to her about Medicare days, and she stated, oh, that's right, they mentioned that at [facility]. She is open to having her mother go home with [facility], if she needs home IV ABO. Let her know that this would go through her secondary insurance, since straight Medicare does not cover home infusions. P: DCP to continue to follow. Plan most likely will be home with resumption of [facility], most likely will need home IV, does not yet have a PICC line. Updated Lonny at [facility], he is now aware that patient is here at the hospital. Sonia Sherman RN/[employer]el Fabricating Supervisor Discharge Planning/Care Management CM Discharge Assessment Start: 11/15/22 09:12 Freq: Status: Active Protocol: Document 11/15/22 09:12 (Rec: 11/15/22 09:16 [id number]) Discharge Planning Assessment Assigned Grade Checker Sonia Sherman RN/Steel Fabricating Supervisor Advance Directives? No History Provided By Patient,Significant Other, Medical Record Prior Living Arrangements House Household Members spouse,children Type of transporation used prior to Relies on Others admit Independent with ADL's No Is patient alert and oriented? Yes Needs Assistance With Bathing,Meal Prep,Toileting, Managing Medications,Home Chores / Shopping Caregiver for Another No DME Already Rented / Owned Wheelchair,FW[facility] / Walker Comment [facility], wheelchair Patient/Family Preference Home with Home Health Barriers to Discharge No Comment One barrier could be that she has used her Medicare days from [facility], but does have supportive family at home. Discharge Plan Home with Home Health Community Services Home Health Nurse Transportation Arrangement Patient is currently under [facility]. Referrals Initiated Other Additional Comment Patient may potentially need home IV infusion, will follow closely. If patient plan is home with home health No: She is currently under : Has signed face to face form been [facility] services. completed? Whiteboard Updated in Patient Room with No name and ext. # of Grade Checker Comment Patient is currently COVID positive. Review Status In Process Next Review Type Continued Stay Review
[2022-11-15] MEDS: FUROSEMIDE 40 MG/4 ML VIAL IV (11:54)
[2022-11-15] MEDS: LIDOCAINE PATCH 1 EACH ADH..PATCH TOP (11:54)
[2022-11-15] MEDS: INSULIN LISPRO 100 UNIT/ML 3ML VIAL SUBCUT ×2 (12:20→17:30)
--- NOTE | 2022-11-15 15:32 | P.PN_ITS ---
Subjective Subjective Date Patient Seen: 11/15/22 Time Patient Seen: 08:00 Interval history: She has some left hip pain. Otherwise she is feeling quite a bit better compared to yesterday. Exam Vital Signs (past 8 hours): - 11/15/22 08:00 11/15/22 08:00 11/15/22 12:00 Temperature 97.6 F Pulse Rate 81 Respiratory Rate 18 Blood Pressure 131/80 Pulse Oximetry 96 98 96 Oxygen Delivery Method Room Air Room Air Oxygen Flow Rate 0 0 0 11/15/22 12:00 Temperature 97.8 F Pulse Rate 96 H Respiratory Rate 18 Blood Pressure 132/75 Pulse Oximetry 96 Oxygen Delivery Method Oxygen Flow Rate Oxygen Delivery Method Room Air Oxygen Flow Rate 0 Narrative Exam Narrative: GEN: no acute distress CV: regular, no murmurs PULM: coarse breath sounds bilaterally ABD: soft, nontender EXT; warm and well perfused, 1+ edema Objective Labs 11/15/22 05:12 11/15/22 05:12 Labs: Laboratory Results - last 24 hr 11/14/22 11/15/22 11/15/22 09:30 05:12 05:12 WBC 17.7 H D RBC 4.11 Hgb 12.6 Hct 38.1 MCV 92.8 MCH 30.6 MCHC 33.0 RDW 18.0 H Plt Count 110 L Neut % (Auto) 88.1 H Lymph % (Auto) 8.4 L [place] % (Auto) 3.5 Eos % (Auto) 0.0 L Baso % (Auto) 0.0 Neut # (Auto) 82263 H Lymph # (Auto) 1500 [place] # (Auto) 600 Eos # (Auto) 0 Baso # (Auto) 0 Sodium 139 Potassium 4.2 Chloride 104 Carbon Dioxide 27 BUN 47 H Creatinine 1.74 H Estimated GFR 30 L BUN/Creatinine Ratio 27.0 H Glucose 96 Calcium 8.7 Magnesium 2.1 A.calcoaceticus-baumannii cmplx PCR Not detected Bacteroides fragilis Not detected Itzel albicans (PCR) Not detected Itzel auris (PCR) Not detected C. glabrata (PCR) Not detected C. krusei (PCR) Not detected C. parapsilosis (PCR) Not detected C. tropicalis (PCR) Not detected C. neoform/gattii (PCR) Not detected Enterobacterales (PCR) Detected H E. cloacae complex PCR Not detected Enterococc faecalis PCR Not detected Enterococc faecium PCR Not detected E. coli (PCR) Detected H H. influenzae (PCR) Not detected Klebsiella aerogenes (PCR) Not detected Klebsiella oxytoca PCR Not detected Klebsiella pneumoniae Not detected List. monocytogenes PCR Not detected N. meningitidis (PCR) Not detected Proteus species (PCR) Not detected Salmonella spp. (PCR) Not detected Serratia marcescens PCR Not detected Staphylococcus sp PCR Not detected Staph aureus (PCR) Not detected mcr-1 Colistin Res Gene PCR Not detected Staph epidermidis (PCR) Not detected Staph lugdunensis PCR Not detected S. maltophilia (PCR) Not detected Streptococcus sp PCR Not detected Group A Strep (PCR) Not detected Strep agalactiae (PCR) Not detected Strep pneumoniae (PCR) Not detected P. aeruginosa (PCR) Not detected blaIMP Car res Gene PCR Not detected KPC-Carbap Res Gene PCR Not detected blaNDM Car Res Gene PCR Not detected OXA-48 Carbapenem Resis Gene (PCR) Not detected blaVIM Car Res Gene PCR Not detected CTX-M Gene Resistance (PCR) Detected H PFSH Medical History Atypical migraine Bilateral lower extremity edema Chicken pox (~1951) Chronic adrenal insufficiency Chronic anticoagulation Chronic diarrhea Chronic kidney disease Hearing loss (~2011) History of DVT (deep vein thrombosis) History of kidney disease (~2002) Hyperlipidemia Hypertension Interstitial lung disease Irritable bowel syndrome (~2012) Measles (~1951) Mixed hyperlipidemia Mumps (~1951) 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 Stage 3b chronic kidney disease (CKD) Systolic CHF, chronic Venous (peripheral) insufficiency Surgical History Anesthesia History of back surgery (~2012) History of left heart catheterization (LHC) History of throat surgery (~1974) Family History Father Cancer History of heart disease Mother Hypertension Social History household members: spouse and children Smoking Status: Never smoker alcohol intake: current Assessment & Plan Assessment & Plan narrative: 1. UTI with bacteremia -UA positive with urine culture with GNR -bacteria also growing GNR -continue with high dose ceftriaxone -once speciated will narrow antibiotics 2. Acute respiratory distresss -possibly secondary to COVID pneumonia and acute CHF exacerbation, systolic -ED discussed with emr specialist who recommended admit here and diurese -continue with IV lasix, systolic BP >100 for now, so will continue lasix -ECHO recently done within last few weeks which showed EF 30-35% -no indication for remdesivir and dexamethasone for now 3. Chronic adrenal insufficiency -continue prednisone 15mg daily -if not improving, or hypotensive, will order stress dose steroids 4. CKD -creatinine 1.51, appears at baseline 5. History of VTE -continue apixaban 6. Depression -continue ssri 7. Hypothyroid -continue synthroid 8. Elevated troponin, secondary to cardiac demand ischemia -suspect elevated secondary to bacteremia/infection, possibly also related to CHF/covid -treat those as above I have discussed plan and obtained history from patient. I have discussed plan of care with ED physician and bedside nurse. I have reviewed labs, imaging. CODE: Full Proxy: Renae Logan, daughter Quality VTE Deep Vein Thrombosis/Pulmonary Embolism Present on Admission: No
[2022-11-15] MEDS: carvediloL 3.125 MG TABLET PO ×2 (18:21→20:29)
[2022-11-15 19:06] LABS: Blood Urea Nitrogen 51 mg/dL (7-17); Calcium 8.8 mg/dL (8.4-10.2); Carbon Dioxide 30 mmol/L (22-32); Chloride 98 mmol/L (98-107); Estimated Glomerular Filt Rate 31 mL/min (>60); Glucose 171 mg/dL (80-110); HEMOLYSIS < 15 (0-50); Magnesium 2.1 mg/dL (1.6-2.3); Potassium 3.9 mmol/L (3.4-5.1); Sodium 137 mmol/L (137-145)
[2022-11-15] MEDS: PANTOPRAZOLE DR 40 MG TABLET PO (20:28)
[2022-11-16] VITALS (19 sets, daily range): BP systolic 114–173; BP diastolic 63–106; PULSE 80–115; RESP 16–40; TEMP 36.2–36.7; O2SAT 95–100
[2022-11-16] MEDS: OXYCODONE/ACETAMINOPHEN 5/325 TABLET 1 TAB PO ×2 (00:35→22:58)
[2022-11-16] MEDS: FUROSEMIDE 40 MG/4 ML VIAL IV ×2 (00:35→12:39)
--- NOTE | 2022-11-16 03:15 | PC.NURSE ---
Pt had 10 runs of Vtach on monitor. Patient lying in bed, no distress. On room air. Denies pain. Tele leads in place reading SR on monitor
[2022-11-16 05:11] LABS: Hematocrit 40.2 % (36-46); Hemoglobin 13.4 g/dL (12.0-16.0); Mean Corpuscular HGB Conc 33.4 % (30-36); Mean Corpuscular Hemoglobin 30.5 PG (26-34); Mean Corpuscular Volume 91.4 fL (80-100); Platelet Count 120 X10^3/uL (150-400); Red Cell Distribution Width 18.2 % (11.6-14.8)
[2022-11-16 05:26] LABS: BUN Creatinine Ratio 33.3 (6-22); Blood Urea Nitrogen 60 mg/dL (7-17); Calcium 8.8 mg/dL (8.4-10.2); Carbon Dioxide 32 mmol/L (22-32); Chloride 98 mmol/L (98-107); Estimated Glomerular Filt Rate 29 mL/min (>60); Glucose 117 mg/dL (80-110); HEMOLYSIS < 15 (0-50); Potassium 3.5 mmol/L (3.4-5.1); Sodium 137 mmol/L (137-145)
[2022-11-16] MEDS: LEVOTHYROXINE 100 MCG TABLET PO (05:42)
[2022-11-16] MEDS: PANTOPRAZOLE DR 40 MG TABLET PO ×2 (05:42→22:31)
[2022-11-16] MEDS: LIDOCAINE PATCH 1 EACH ADH..PATCH TOP (08:15)
[2022-11-16] MEDS: cefTRIAXone 2,000 MG in SODIUM CHLORIDE 0.9% 100 ML 200 MG IV (08:15)
[2022-11-16] MEDS: predniSONE 5 MG TABLET 15 MG PO (08:18)
[2022-11-16] MEDS: ACETAMINOPHEN 325 MG TABLET 650 MG PO ×3 (08:18→22:30)
[2022-11-16] MEDS: CITALOPRAM 10 MG TABLET PO (08:19)
[2022-11-16] MEDS: APIXABAN 5 MG TABLET 2.5 MG PO ×2 (08:19→22:31)
[2022-11-16] MEDS: SODIUM CHLORIDE 0.9% FLUSH 10 ML IV ×2 (08:20→22:33)
[2022-11-16] MEDS: carvediloL 3.125 MG TABLET PO ×2 (08:20→22:32)
[2022-11-16] MEDS: MEROPENEM 1 GM in SODIUM CHLORIDE 0.9% 100 ML IV ×2 (11:09→22:35)
[2022-11-16] MEDS: INSULIN LISPRO 100 UNIT/ML 3ML VIAL SUBCUT ×2 (12:39→17:20)
--- NOTE | 2022-11-16 16:24 | P.PN_ITS ---
Subjective Subjective Interval history: Weak. No pain or dyspnea. Exam Vital Signs (past 8 hours): - 11/16/22 12:00 11/16/22 16:00 Temperature 97.7 F 97.9 F Pulse Rate 90 100 H Respiratory Rate 20 18 Blood Pressure 123/70 114/84 Pulse Oximetry 100 97 Oxygen Flow Rate 0 Oxygen Delivery Method Room Air Oxygen Flow Rate 0 Narrative Exam Narrative: NAD Fluent speech Lungs clear , normal effort CV regular Abdomen soft Legs 1+ edema Objective Labs 11/16/22 04:57 11/16/22 04:57 Labs: Laboratory Results - last 24 hr 11/15/22 11/16/22 11/16/22 18:30 04:57 04:57 WBC 15.0 H RBC 4.40 Hgb 13.4 Hct 40.2 MCV 91.4 MCH 30.5 MCHC 33.4 RDW 18.2 H Plt Count 120 L Sodium 137 137 Potassium 3.9 3.5 Chloride 98 98 Carbon Dioxide 30 32 BUN 51 H 60 H Creatinine 1.70 H 1.80 H Estimated GFR 31 L 29 L BUN/Creatinine Ratio 30.0 H 33.3 H Glucose 171 H 117 H Calcium 8.8 8.8 Magnesium 2.1 PFSH Medical History Atypical migraine Bilateral lower extremity edema Chicken pox (~1951) Chronic adrenal insufficiency Chronic anticoagulation Chronic diarrhea Chronic kidney disease Hearing loss (~2011) History of DVT (deep vein thrombosis) History of kidney disease (~2002) Hyperlipidemia Hypertension Interstitial lung disease Irritable bowel syndrome (~2012) Measles (~1951) Mixed hyperlipidemia Mumps (~1951) 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 Stage 3b chronic kidney disease (CKD) Systolic CHF, chronic Venous (peripheral) insufficiency Surgical History Anesthesia History of back surgery (~2012) History of left heart catheterization (LHC) History of throat surgery (~1974) Family History Father Cancer History of heart disease Mother Hypertension Social History household members: spouse and children Smoking Status: Never smoker alcohol intake: current Assessment & Plan Assessment & Plan narrative: [address] [address] Progress Note Patient: Christine Burger MR#: [id number] : 1945 Acct:[id number] Age/Sex: 76 / F ? Date of Service: 11/14/22 Provider:?Justin Daniels MD Subjective Subjective Date Patient Seen: 11/15/22 Time Patient Seen: 08:00 Interval history: She has some left hip pain. Otherwise she is feeling quite a bit better compared to yesterday. Exam Vital Signs (past 8 hours): - ? 11/16/2307:00 11/16/2307:00 11/16/2311:00 Temperature ? 97.6 F ? Pulse Rate ? 81 ? Respiratory Rate ? 18 ? Blood Pressure ? 131/80 ? Pulse Oximetry 96 98 96 Oxygen Delivery Method Room Air ? Room Air Oxygen Flow Rate 0 0 0 ? 11/16/2311:00 Temperature 97.8 F Pulse Rate 96 H Respiratory Rate 18 Blood Pressure 132/75 Pulse Oximetry 96 Oxygen Delivery Method ? Oxygen Flow Rate ? Oxygen Delivery Method? Room Air? Oxygen Flow Rate? 0 ? Narrative Exam Narrative: GEN: no acute distress CV: regular, no murmurs PULM: coarse breath sounds bilaterally ABD: soft, nontender EXT; warm and well perfused, 1+ edema Objective Labs 11/15/22 05:12? 11/15/22 05:12? Labs: Laboratory Results - last 24 hr ? 11/14/22 11/15/22 11/15/22 ? 09:30 05:12 05:12 WBC ? ?17.7 H D ? RBC ? ?4.11 ? Hgb ? ?12.6 ? Hct ? ?38.1 ? MCV ? ?92.8 ? MCH ? ?30.6 ? MCHC ? ?33.0 ? RDW ? ?18.0 H ? Plt Count ? ?110 L ? Neut % (Auto) ? ?88.1 H ? Lymph % (Auto)B ? ?8.4 L ? Edwards % (Auto) ?B ?3.5 ? Eos % (Auto) ? ?0.0 L ? Baso % (Auto) ? ?0.0 ? Neut # (Auto) ? ?64116 H ? Lymph # (Auto) ? ?1500 ? Edwards # (Auto) ? ?600 ? Eos # (Auto) ? ?0 ? Baso # (Auto) ? ?0 ? Sodium ? ? ?139 Potassium ? ? ?4.2 Chloride ? ? ?104 Carbon Dioxide ? ? ?27 BUN ? ? ?47 H Creatinine ? ? ?1.74 H Estimated GFR ? ? ?30 L BUN/Creatinine Ratio ? ? ?27.0 H Glucose ? ? ?96 Calcium ? ? ?8.7 Magnesium ? ? ?2.1 A.calcoaceticus-baumannii cmplx PCR ?Not detected ? ? Bacteroides fragilis ?Not detected ? ? Itzel albicans (PCR) ?Not detected ? ? Itzel auris (PCR) ?Not detected ? ? C. glabrata (PCR) ?Not detected ? ? C. krusei (PCR) ?Not detected ? ? C. parapsilosis (PCR) ?Not detected ? ? C. tropicalis (PCR) ?Not detected ? ? C. neoform/gattii (PCR) ?Not detected ? ? Enterobacterales (PCR) ?Detected H ? ? E. cloacae complex PCR ?Not detected ? ? Enterococc faecalis PCR ?Not detected ? ? Enterococc faecium PCR ?Not detected ? ? E. coli (PCR) ?Detected H ? ? H. influenzae (PCR) ?Not detected ? ? Klebsiella aerogenes (PCR) ?Not detected ? ? Klebsiella oxytoca PCR ?Not detected ? ? Klebsiella pneumoniae ?Not detected ? ? List. monocytogenes PCR ?Not detected ? ? N. meningitidis (PCR) ?Not detected ? ? Proteus species (PCR) ?Not detected ? ? Salmonella spp. (PCR) ?Not detected ? ? Serratia marcescens PCR ?Not detected ? ? Staphylococcus sp PCR ?Not detected ? ? F Staph aureus (PCR) ?Not detected ? ? mcr-1 Colistin Res Gene PCR ?Not detected ? ? Staph epidermidis (PCR) ?Not detected ? ? Staph lugdunensis PCR ?Not detected ? ? S. maltophilia (PCR) ?Not detected ? ? Streptococcus sp PCR ?Not detected ? ? Group A Strep (PCR) ?Not detected ? ? Strep agalactiae (PCR) ?Not detected ? ? Strep pneumoniae (PCR) ?Not detected ? ? P. aeruginosa (PCR) ?Not detected ? ? blaIMP Car res Gene PCR ?Not detected ? ? KPC-Carbap Res Gene PCR ?Not detected ? ? blaNDM Car Res Gene PCR ?Not detected ? ? OXA-48 Carbapenem Resis Gene (PCR) ?Not detected ? ? blaVIM Car Res Gene PCR ?Not detected ? ? CTX-M Gene Resistance (PCR) ?Detected H ? ? PFSH Medical History? Atypical migraine Bilateral lower extremity edema Chicken pox (~1951) Chronic adrenal insufficiency Chronic anticoagulation Chronic diarrhea Chronic kidney disease Hearing loss (~2011) History of DVT (deep vein thrombosis) History of kidney disease (~2002) Hyperlipidemia Hypertension Interstitial lung disease Irritable bowel syndrome (~2012) Measles (~1951) Mixed hyperlipidemia Mumps (~1951) 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 Stage 3b chronic kidney disease (CKD) Systolic CHF, chronic Venous (peripheral) insufficiency Surgical History? Anesthesia History of back surgery (~2012) History of left heart catheterization (LHC) History of throat surgery (~1974) Family History? Father?? Cancer History of heart diseaseMother?? Hypertension Social History? household members:? spouse and children Smoking Status:? Never smoker alcohol intake:? current Assessment & Plan Assessment & Plan narrative: 1. ESBL UTI with bacteremia, POA. -changed to meropenem. -Midline placed -Home IV Abx referral started. 2. COVID and Acute respiratory distress (but no hypoxia), POA and resolved -possibly secondary to COVID pneumonia and acute CHF exacerbation, systolic -ED discussed with weight engineer who recommended admit here and diurese -continue with IV lasix, systolic BP >100 for now, so will continue lasix -ECHO recently done within last few weeks which showed EF 30-35% -no indication for remdesivir and dexamethasone for now 3. Chronic adrenal insufficiency, POA and stable. -continue prednisone 15mg daily -if not improving, or hypotensive, will order stress dose steroids 4. CKD 3, POA and stable. -creatinine 1.51, appears at baseline 5. History of VTE, POA and stable. -continue apixaban 6. Depression, POA and stable. -continue ssri 7. Hypothyroid, POA and stable. -continue synthroid 8. Elevated troponin, secondary to cardiac demand ischemia, POA and improved. -suspect elevated secondary to bacteremia/infection, possibly also related to CHF/covid -treat those as above 9. Weakness, POA. Lives with . He assists with wheelchair transfers, PT eval Time Spent With Patient Time with patient: 30 to 49 minutes with 50% spent counseling/coordinating care Quality VTE Deep Vein Thrombosis/Pulmonary Embolism Present on Admission: No
--- NOTE | 2022-11-16 16:46 | CM.DPC ---
DCP Continued: ROD CUP FILLER reviewed EMR. Per provider, patient will likely need two more days. Patient does not have a PICC yet for home infusion. Thomas reports speaking with family, stating they have questions regarding different home plans due to cost of current infusion. ROD CUP FILLER unable to meet with patient today due to triaging needs/patient COVID positive results. ROD CUP FILLER plans to follow up first thing in morning. Plan: patient likely to d/c home with family and [facility] when medically stable. CM team will continue to follow closely for home infusion needs. NHAN Goncalves
[2022-11-16] MEDS: AMIODARONE 150 MG/100 ML PIGGYBACK 600 MG IV (19:05)
[2022-11-16] MEDS: POTASSIUM CHLORIDE IN WATER 10 MEQ/100 ML PIGGYBACK 100 MEQ IV ×2 (19:07→23:18)
[2022-11-16] MEDS: AMIODARONE 360 MG/200 ML PIGGYBACK 33.33 MG IV (19:15)
--- NOTE | 2022-11-16 19:33 | PC.NURSE ---
around 185 pt's tele was showing runs of vtach, 22beat, 26, then 28. checked patient and pt said i felt like passing out. notified provider. order was to transfer patient to ICU for amio drip.
[2022-11-16 19:45] LABS: BUN Creatinine Ratio 36.2 (6-22); Blood Urea Nitrogen 68 mg/dL (7-17); Calcium 8.6 mg/dL (8.4-10.2); Carbon Dioxide 31 mmol/L (22-32); Chloride 94 mmol/L (98-107); Estimated Glomerular Filt Rate 27 mL/min (>60); Glucose 280 mg/dL (80-110); HEMOLYSIS 28 (0-50); Potassium 3.4 mmol/L (3.4-5.1); Sodium 134 mmol/L (137-145)
[2022-11-17] VITALS (71 sets, daily range): BP systolic 102–158; BP diastolic 56–106; PULSE 70–120; RESP 19–44; TEMP 36.4–36.8; O2SAT 93–99
[2022-11-17] MEDS: FUROSEMIDE 40 MG/4 ML VIAL IV ×3 (00:31→23:25)
[2022-11-17] MEDS: AMIODARONE 360 MG/200 ML PIGGYBACK 16.7 MG IV (01:12)
[2022-11-17] MEDS: LEVOTHYROXINE 100 MCG TABLET PO (06:56)
[2022-11-17] MEDS: PANTOPRAZOLE DR 40 MG TABLET PO ×2 (06:56→21:30)
[2022-11-17] MEDS: ACETAMINOPHEN 325 MG TABLET 650 MG PO ×3 (08:29→21:19)
[2022-11-17] MEDS: APIXABAN 5 MG TABLET 2.5 MG PO ×2 (08:30→21:20)
[2022-11-17] MEDS: predniSONE 5 MG TABLET 15 MG PO (08:31)
[2022-11-17] MEDS: carvediloL 3.125 MG TABLET PO ×2 (08:32→21:20)
[2022-11-17] MEDS: CITALOPRAM 10 MG TABLET PO (08:33)
[2022-11-17] MEDS: SODIUM CHLORIDE 0.9% FLUSH 10 ML IV ×2 (08:34→21:30)
[2022-11-17] MEDS: POTASSIUM CHLORIDE 20 MEQ TAB 40 MEQ PO (09:02)
[2022-11-17 09:56] LABS: Add Manual Diff / Slide Review NO; BUN Creatinine Ratio 40.7 (6-22); Basophils Absolute Auto 100 /uL (0-100); Basophils Percent Auto 0.8 % (0-2); Blood Urea Nitrogen 66 mg/dL (7-17); Calcium 8.5 mg/dL (8.4-10.2); Carbon Dioxide 34 mmol/L (22-32); Chloride 94 mmol/L (98-107); Eosinophils Absolute Auto 100 /uL (0-450); Eosinophils Percent Auto 0.5 % (2-4); Estimated Glomerular Filt Rate 33 mL/min (>60); Glucose 116 mg/dL (80-110); HEMOLYSIS 51 (0-50); Hematocrit 43.4 % (36-46); Hemoglobin 14.4 g/dL (12.0-16.0); Lymphocytes Absolute Auto 2500 /uL (1100-4500); Lymphocytes Percent Auto 18.8 % (25-40); Mean Corpuscular HGB Conc 33.3 % (30-36); Mean Corpuscular Hemoglobin 30.5 PG (26-34); Mean Corpuscular Volume 91.8 fL (80-100); Monocytes Absolute Auto 900 /uL (0-900); Monocytes Percent Auto 6.8 % (3-14); Neutrophils Absolute Auto 9700 /uL (1500-7000); Neutrophils Percent Auto 73.1 % (50-75); Platelet Count 117 X10^3/uL (150-400); Potassium 3.6 mmol/L (3.4-5.1); Red Blood Cell Count 4.73 X10^6/uL (4.0-5.2); Sodium 135 mmol/L (137-145); White Blood Cell Count 13.3 X10^3/uL (4.5-11.0)
[2022-11-17] MEDS: MEROPENEM 1 GM in SODIUM CHLORIDE 0.9% 100 ML IV ×2 (10:33→23:24)
[2022-11-17] MEDS: LIDOCAINE PATCH 1 EACH ADH..PATCH TOP (10:42)
--- NOTE | 2022-11-17 11:26 | PT.IIE ---
Current Diagnoses COVID-19 (11/14/22) Surgical History (Last Reviewed 11/14/22 @ 09:00 by Cora Maradiaga DO) Anesthesia History of back surgery (~2012) History of left heart catheterization (LHC) History of throat surgery (~1974) Medical History (Last Reviewed 11/14/22 @ 09:00 by Cora Maradiaga DO) Atypical migraine Bilateral lower extremity edema Chicken pox (~1951) Chronic adrenal insufficiency Chronic anticoagulation Chronic diarrhea Chronic kidney disease Hearing loss (~2011) History of DVT (deep vein thrombosis) History of kidney disease (~2002) Hyperlipidemia Hypertension Interstitial lung disease Irritable bowel syndrome (~2012) Measles (~1951) Mixed hyperlipidemia Mumps (~1951) 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 Stage 3b chronic kidney disease (CKD) Systolic CHF, chronic Venous (peripheral) insufficiency Physical Therapy Inpatient Evaluation/Re-Eval M1 PT/OT-IP Prior Functional Status Start: 11/17/22 08:21 Freq: NEEDED Status: Active Protocol: Document 11/17/22 10:35 MB (Rec: 11/17/22 11:25 MB [id number]) Medical Review Prior Functional Status Medical History Reviewed Yes Diet/Fluid Consistency Regular Communication Communicates needs Mobility and Gait Transfers with RW and w/c, short distance steps to toilet and bed with or HH assistance Activities of Daily Living and IADL's HH aide assist for showers and little assistance for dressing Social History Household Members spouse,children Living Arrangements House Number of Floors (Floors) One Floor Number of Stairs To Enter/Railing? No steps to enter Home Environment Standard Height Toilet Home Equipment Front Wheel Walker,Manual Wheelchair,Bedside Commode,Tub Transfer Bench Employment Status Retired M2 PT-IP Current Condition Start: 11/17/22 08:21 Freq: NEEDED Status: Active Protocol: Document 11/17/22 10:35 MB (Rec: 11/17/22 11:25 MB [id number]) Physical Therapy Current Condition Current Condition Evaluation Date 11/17/22 Treatment Diagnosis COVID, weakness, ongoing cardiac issues Onset Date Many month decline, recent COVID M3 PT-IP Subjective Start: 11/17/22 08:21 Freq: NEEDED Status: Active Protocol: Document 11/17/22 10:35 MB (Rec: 11/17/22 11:25 MB [id number]) Subjective Physical Therapy Visit Type Type Initial Evaluation Visit Start Time 10:35 Visit Stop Time 11:05 Total Visit Minutes 40 Number of FUNERAL HOME ATTENDANT Visits 0 Physical Therapy Visit Comments Patient Comments Well, I'm here. Therapy Pain Assessment Pain When Pain Assessed During Mobility Pain Present Pain Present Pain Reported Location Back Intensity 2 Scale Used Nicki (Faces) Description Chronic Pain Behaviors Facial Grimacing Pain Management Techniques Timing of Activity with Medications M4 PT-IP Mobility and Gait Start: 11/17/22 08:21 Freq: NEEDED Status: Active Protocol: Document 11/17/22 10:35 MB (Rec: 11/17/22 11:25 MB [id number]) PT-Bed Mobility Assessment Supine to Sit Supine to Sit Maximum Assistance,1 Person Assistance,Head of Bed Elevated,Bedrails Sit to Supine Sit to Supine Maximum Assistance,1 Person Assistance,Head of Bed Elevated,Bedrails Scooting Scooting to Edge of Bed Maximum Assistance Scooting Up and Down in Bed Dependent PT-Transfer Assessment Comments Mobility Comments Nsg clears PT to assist pt with dangling and PT is agreeable given transfer to ICU last date d/t Vtach and pt concerns for sitting tolerance and light-headedness . Pt requires cues and max A to assist with moving legs and upper body to sitting. She maintains sitting EOB with UE support and close superv for several minutes and performs LAQs and APs within range. PT does occ provide CGA. Pt requires dependent assistance pulling the pad to scoot hips and body up to HOB while sitting. PT lifts legs back into bed for sitting to left sidelying to supine and PT blocks feet after pt bends knees and pt uses rails to help scoot up to HOB. PT-Balance Assessment Sitting Balance and Reactions Static Sitting Balance Ability Fair Dynamic Sitting Balance Ability Fair Comments Other Balance Tests/Deviations/Treatment PT does provide light support : for balance when pt performs LAQs and APs for sitting EOB exercises today. M6 PT-IP Treatment Start: 11/17/22 08:21 Freq: NEEDED Status: Active Protocol: Document 11/17/22 10:35 MB (Rec: 11/17/22 11:26 MB [id number]) Physical Therapy Treatment Exercises Exercises Ankle Pumps Other Treatments Other Treatment Performed Sitting EOB: LAQs with APs x10 reps each leg M7 PT-IP Assessment and Plan Start: 11/17/22 08:21 Freq: NEEDED Status: Active Protocol: Document 11/17/22 10:35 MB (Rec: 11/17/22 11:25 MB [id number]) PT Summary Assessment and Plan Potential Rehabilitation Potential Poor Status of Condition at Evaluation Unstable Summary Impairments Pain,ROM,Strength,Balance,Tone ,Bed Mobility,Transfers,Gait, Activity Tolerance Progress Towards Goals Slow Progress due to Medical Issues Assessment Summary Pt is a 76 y/o female with many month decline in medical health and function. She recently spent many weeks in SNF and progressed to short distance gait with assistance with RW and could not progress to further I or gait distance d/t cardiac issues (possible need for pacer), peripheral edema in setting of cardiac and kidney issues, pain and weakness. Pt d/cd home with and was receiving assistance for transfers to RW , toilet, bed. She was receiving HHPT. They would like to be able to take her back home if she is able to move with limited assistance. They have Telehealth cardiology appointment today to discuss pacer. Overall, pt has had decline over a few months medically and this has also affected her function. Her functional prognosis is poor. She has ongoing right greater than left LE edema with B PF tension and no great toe extension on the right. Pt's HR is volatile with sitting EOB and with LE exercises EOB and is 85-90 BPM at rest, occ bumps up to 150 BPM and usually increases to the low 115 BPM area with mobility. Ed pt and that they can con't APs, HS, all other supine LE exercises in the bed. LAQs with APs performed today during assessment. Goals Bed Mobility Goal Standby Assistance Transfer Goal Standby Assistance,Front Wheeled Walker Gait Goal Standby Assistance,Front Wheel Walker Gait Distance 20 Days to Meet Goals 10 Frequency of Treatment Frequency Of Treatment Once a Day Treatment Plan Physical Therapy Treatment Plan Bed Mobility Training,Transfer Training,Gait Training, Therapeutic Exercise,Balance Retraining,Discharge Planning, Neuromuscular Re-ed Weight Bearing Status Weight Bearing Status Weight Bear as Tolerated Recommendations To Nursing Amount of Assist Needed Mechanical Lift Discharge Recommendations PT Discharge Recommendations Home vs SNF Other Discharge Recommendations Of note, pt was recently d/cd from SNF d/t inability to further progress and poor tolerance to PT given multiple medical issues. Her medical presentation does not seem to have improved since d/c from SNF. Overall functional prognosis is similar and is poor. Transportation Needs at Discharge Private Vehicle
[2022-11-17] MEDS: INSULIN LISPRO 100 UNIT/ML 3ML VIAL SUBCUT ×2 (11:51→17:03)
[2022-11-17] MEDS: AMIODARONE 180 MG/100 ML PIGGYBACK 16.7 MG IV (12:28)
--- NOTE | 2022-11-17 16:25 | CM.DPC ---
DCP Continued: ASSISTANT FOOD SERVICE MANAGER reviewed EMR. Per provider, patient could either d/c tomorrow or Monday with home IV antibiotics and [facility]. ASSISTANT FOOD SERVICE MANAGER updated Etta with [facility]. ASSISTANT FOOD SERVICE MANAGER answered questions from Etta. Patient currently has a midline. ASSISTANT FOOD SERVICE MANAGER updated provider that [facility] is requesting a verbal order. ASSISTANT FOOD SERVICE MANAGER gave provider [facility] phone number. Plan: dc home with family/[facility] when medically stable. CM team will continue to follow closely. NHAN Goncalves
--- NOTE | 2022-11-17 17:01 | PM.PN.1 ---
Subjective Subjective Interval history: Patient on amio drip due to runs of VT. WBC decreasing. Family at bedside and questions were answered. Patient has no complaints. Exam Vital Signs (past 8 hours): - 11/17/22 09:30 11/17/22 09:31 11/17/22 09:31 Pulse Rate 119 H 120 H Respiratory Rate 32 H 31 H Blood Pressure 121/58 L Pulse Oximetry 98 99 11/17/22 10:00 11/17/22 10:01 11/17/22 10:01 Pulse Rate 104 H 112 H Respiratory Rate 33 H 30 H Blood Pressure 121/58 L Pulse Oximetry 97 96 11/17/22 10:30 11/17/22 10:31 11/17/22 10:31 Pulse Rate 110 H 98 H Respiratory Rate 32 H 31 H Blood Pressure 130/61 Pulse Oximetry 97 97 11/17/22 11:00 11/17/22 11:01 11/17/22 11:01 Pulse Rate 78 77 Respiratory Rate 29 H 27 H Blood Pressure 126/79 Pulse Oximetry 97 98 11/17/22 11:30 11/17/22 11:30 11/17/22 12:00 Pulse Rate 78 Respiratory Rate 34 H Blood Pressure 115/67 121/65 Pulse Oximetry 98 11/17/22 12:00 11/17/22 12:30 11/17/22 12:30 Pulse Rate 78 92 H Respiratory Rate 39 H 35 H Blood Pressure 140/64 Pulse Oximetry 96 97 11/17/22 13:00 11/17/22 13:01 11/17/22 13:01 Pulse Rate 95 H 91 H Respiratory Rate 35 H 33 H Blood Pressure 148/70 H Pulse Oximetry 96 96 11/17/22 13:30 11/17/22 13:31 11/17/22 13:31 Pulse Rate 93 H 91 H Respiratory Rate 21 33 H Blood Pressure 132/60 Pulse Oximetry 97 97 11/17/22 14:00 11/17/22 14:01 11/17/22 14:01 Pulse Rate 88 94 H Respiratory Rate 29 H 24 Blood Pressure 132/60 Pulse Oximetry 97 96 11/17/22 14:30 11/17/22 14:31 11/17/22 14:31 Pulse Rate 85 84 Respiratory Rate 28 H 36 H Blood Pressure 135/59 L Pulse Oximetry 96 96 11/17/22 15:00 11/17/22 15:00 11/17/22 15:30 Pulse Rate 89 Respiratory Rate 34 H Blood Pressure 139/63 126/72 Pulse Oximetry 96 11/17/22 15:30 11/17/22 16:00 11/17/22 16:00 Pulse Rate 79 76 Respiratory Rate 30 H 37 H Blood Pressure 125/68 Pulse Oximetry 93 95 11/17/22 16:30 11/17/22 16:30 Pulse Rate 76 Respiratory Rate 29 H Blood Pressure 119/72 Pulse Oximetry 93 Oxygen Delivery Method Room Air Oxygen Flow Rate 0 Narrative Exam Narrative: NAD Fluent speech Lungs clear , normal effort CV regular Abdomen soft Legs 1+ edema Objective Labs 11/17/22 09:22 11/17/22 09:22 Labs: Laboratory Results - last 24 hr 11/16/22 11/17/22 11/17/22 19:18 09:22 09:22 WBC 13.3 H RBC 4.73 Hgb 14.4 Hct 43.4 MCV 91.8 MCH 30.5 MCHC 33.3 RDW 18.0 H Plt Count 117 L Neut % (Auto) 73.1 Lymph % (Auto) 18.8 L Christian % (Auto) 6.8 Eos % (Auto) 0.5 L Baso % (Auto) 0.8 Neut # (Auto) 9700 H Lymph # (Auto) 2500 Christian # (Auto) 900 Eos # (Auto) 100 Baso # (Auto) 100 Sodium 134 L 135 L Potassium 3.4 3.6 Chloride 94 L 94 L Carbon Dioxide 31 34 H BUN 68 H 66 H Creatinine 1.88 H 1.62 H Estimated GFR 27 L 33 L BUN/Creatinine Ratio 36.2 H 40.7 H Glucose 280 H D 116 H D Calcium 8.6 8.5 Magnesium 2.0 11/17/22 09:22 WBC RBC Hgb Hct MCV MCH MCHC RDW Plt Count Neut % (Auto) Lymph % (Auto) Christian % (Auto) Eos % (Auto) Baso % (Auto) Neut # (Auto) Lymph # (Auto) Christian # (Auto) Eos # (Auto) Baso # (Auto) Sodium Potassium Chloride Carbon Dioxide BUN Creatinine Estimated GFR BUN/Creatinine Ratio Glucose Calcium Magnesium 2.0 PFSH Medical History Atypical migraine Bilateral lower extremity edema Chicken pox (~1952) Chronic adrenal insufficiency Chronic anticoagulation Chronic diarrhea Chronic kidney disease Hearing loss (~2011) History of DVT (deep vein thrombosis) History of kidney disease (~2002) Hyperlipidemia Hypertension Interstitial lung disease Irritable bowel syndrome (~2012) Measles (~1951) Mixed hyperlipidemia Mumps (~1951) 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 Stage 3b chronic kidney disease (CKD) Systolic CHF, chronic Venous (peripheral) insufficiency Surgical History Anesthesia History of back surgery (~2012) History of left heart catheterization (LHC) History of throat surgery (~1974) Family History Father Cancer History of heart disease Mother Hypertension Social History household members: spouse and children Smoking Status: Never smoker alcohol intake: current Assessment & Plan Assessment & Plan narrative: 1. ESBL UTI with bacteremia, POA. -changed to meropenem. -Midline placed -Home IV Abx referral started. -plan for home with ertapenem 1g daily x2 weeks 2. COVID and Acute respiratory distress (but no hypoxia), POA and resolved -possibly secondary to COVID pneumonia and acute CHF exacerbation, systolic -ED discussed with design engineer agricultural equipment who recommended admit here and diurese -continue with IV lasix, systolic BP >100 for now, so will continue lasix -ECHO recently done within last few weeks which showed EF 30-35% -no indication for remdesivir and dexamethasone for now 3. Chronic adrenal insufficiency, POA and stable. -continue prednisone 15mg daily -if not improving, or hypotensive, will order stress dose steroids 4. CKD 3, POA and stable. -creatinine 1.51, appears at baseline 5. History of VTE, POA and stable. -continue apixaban 6. Depression, POA and stable. -continue ssri 7. Hypothyroid, POA and stable. -continue synthroid 8. Elevated troponin, secondary to cardiac demand ischemia, POA and improved. -suspect elevated secondary to bacteremia/infection, possibly also related to CHF/covid -treat those as above 9. Weakness, POA. Lives with . He assists with wheelchair transfers, PT eval ordered. 10. VT -had 2 min sustained VT, now on amio drip and these have resolved -maintain K >4 and mag >2 -transition to po amio evening of 11/17 -patient will f/u with Dr. Patel her EP design engineer agricultural equipment in clinic -previous echo on 11/07 with unchanged EF of 30-35% Dispo: Home pending IV home abx being arranged. Likely 11/18. Quality VTE Deep Vein Thrombosis/Pulmonary Embolism Present on Admission: No
[2022-11-17] MEDS: AMIODARONE 200 MG TABLET 400 MG PO (21:20)
[2022-11-17] MEDS: SENNOSIDES 8.6 MG TABLET PO (21:37)
[2022-11-18] VITALS (55 sets, daily range): BP systolic 117–159; BP diastolic 62–81; PULSE 71–135; RESP 17–39; TEMP 36.4–36.7; O2SAT 93–99
[2022-11-18 05:18] LABS: Hematocrit 44.8 % (36-46); Mean Corpuscular HGB Conc 33.4 % (30-36); Mean Corpuscular Hemoglobin 30.7 PG (26-34); Mean Corpuscular Volume 91.7 fL (80-100); Platelet Count 134 X10^3/uL (150-400); Red Blood Cell Count 4.89 X10^6/uL (4.0-5.2); Red Cell Distribution Width 17.9 % (11.6-14.8); White Blood Cell Count 12.9 X10^3/uL (4.5-11.0)
[2022-11-18 05:24] LABS: BUN Creatinine Ratio 36.9 (6-22); Blood Urea Nitrogen 62 mg/dL (7-17); Calcium 8.9 mg/dL (8.4-10.2); Carbon Dioxide 33 mmol/L (22-32); Chloride 95 mmol/L (98-107); Estimated Glomerular Filt Rate 31 mL/min (>60); Glucose 97 mg/dL (80-110); HEMOLYSIS < 15 (0-50); Potassium 3.5 mmol/L (3.4-5.1); Sodium 138 mmol/L (137-145)
[2022-11-18 05:25] LABS: Magnesium 2.2 mg/dL (1.6-2.3)
[2022-11-18 05:36] LABS: Add Manual Diff / Slide Review YES
[2022-11-18 05:39] LABS: Neutrophils Absolute Manual 9675 /uL (3000-5900); Total Cells Counted 100
[2022-11-18 05:43] LABS: Anisocytosis 1+
[2022-11-18] MEDS: LEVOTHYROXINE 100 MCG TABLET PO (06:08)
[2022-11-18] MEDS: PANTOPRAZOLE DR 40 MG TABLET PO ×2 (06:08→21:07)
[2022-11-18] MEDS: ACETAMINOPHEN 325 MG TABLET 650 MG PO (08:21)
[2022-11-18] MEDS: SODIUM CHLORIDE 0.9% FLUSH 10 ML IV ×2 (08:22→21:07)
[2022-11-18] MEDS: APIXABAN 5 MG TABLET 2.5 MG PO ×2 (08:22→21:07)
[2022-11-18] MEDS: CITALOPRAM 10 MG TABLET PO (08:22)
[2022-11-18] MEDS: AMIODARONE 200 MG TABLET 400 MG PO ×2 (08:22→17:38)
[2022-11-18] MEDS: predniSONE 5 MG TABLET 15 MG PO (08:22)
[2022-11-18] MEDS: carvediloL 3.125 MG TABLET PO ×2 (08:22→21:08)
--- NOTE | 2022-11-18 10:25 | PC.NURSE ---
0935 - Patient transferred to bedside commode for BM. 2PA. During BM, patient became unresponsive and slumped over. All vitals normal (see chart). Patient returned to baseline shortly thereafter, roughly three minutes. Suspect vagal response. Dr Flores notified.
[2022-11-18] MEDS: ERTAPENEM 1 GM in SODIUM CHLORIDE 0.9% 100 ML IV (10:30)
[2022-11-18] MEDS: INSULIN LISPRO 100 UNIT/ML 3ML VIAL SUBCUT (12:11)
[2022-11-18] MEDS: FUROSEMIDE 40 MG/4 ML VIAL IV (12:12)
--- NOTE | 2022-11-18 12:40 | PT.IPTN ---
Current Diagnoses COVID-19 (11/14/22) Physical Therapy Treatment Note M2 PT-IP Current Condition Start: 11/17/22 08:21 Freq: NEEDED Status: Active Protocol: Document 11/17/22 10:35 MB (Rec: 11/17/22 11:25 MB [id number]) Physical Therapy Current Condition Current Condition Evaluation Date 11/17/22 Treatment Diagnosis COVID, weakness, ongoing cardiac issues Onset Date Many month decline, recent COVID M3 PT-IP Subjective Start: 11/17/22 08:21 Freq: NEEDED Status: Active Protocol: Document 11/18/22 14:43 TS (Rec: 11/18/22 15:11 TS [id number]) Subjective Physical Therapy Visit Type Type Treatment Note Visit Start Time 12:40 Visit Stop Time 13:05 Total Visit Minutes 25 Number of SPIN INSTRUCTOR Visits 1 Physical Therapy Visit Comments Patient Comments Pt reports feeling fatigued and weak, would like to get out of bed, agreeable to PT. M4 PT-IP Mobility and Gait Start: 11/17/22 08:21 Freq: NEEDED Status: Active Protocol: Document 11/18/22 14:43 TS (Rec: 11/18/22 15:11 TS [id number]) PT-Bed Mobility Assessment Rolling Type of Rolling Roll to Left Level of Assist Minimal Assistance,1 Person Assistance Supine to Sit Supine to Sit Moderate Assistance,1 Person Assistance,Head of Bed Elevated,Bedrails Sit to Supine Sit to Supine Maximum Assistance,1 Person Assistance,Head of Bed Elevated,Bedrails Scooting Scooting to Edge of Bed Maximum Assistance Scooting Up and Down in Bed Dependent PT-Transfer Assessment Sit to and From Stand Sit to and from Stand Maximum Assistance,1 Person Assistance,Use of Upper Extremities Comments Mobility Comments Pt found resting in bed, agreeable to PT. BP in sitting 136/68, HR 100-120. Supine to sit ModA, pt slow to sit up with BUE support, requires assistance to upright trunk. Pt initially scooted to EOB with BUE support, fatigues quickly requiring MaxA with transfer pad. Pt sat EOB SBA with BUE support, reported some lightheadedness, BP 117/ 62. Sit to stand x4 MaxA with FWW, provided cues for UE support pushing from bed, feet underneath, and weight forward. She attempted to take a step and pt states she can' t pick up attendant her feet. Pt retroleans in standing requiring MaxA for balance, pt fearful in standing of falling, she requested to sit on bed. Pt stated she needed to have a BM, pt did not want to use commode, requested bed christy. Pt rolled Ke[place] to L with cues for getting on bed chrsity. Pt was left in bed with nursing attending to needs. Gait Assessment Comments Gait Comments Not at this time. PT-Balance Assessment Sitting Balance and Reactions Static Sitting Balance Ability Fair Dynamic Sitting Balance Ability Fair Standing Balance and Reactions Static Standing Balance Ability Poor Dynamic Standing Balance Ability Poor M6 PT-IP Treatment Start: 11/17/22 08:21 Freq: NEEDED Status: Active Protocol: Document 11/17/22 10:35 MB (Rec: 11/17/22 11:26 MB [id number]) Physical Therapy Treatment Exercises Exercises Ankle Pumps Other Treatments Other Treatment Performed Sitting EOB: LAQs with APs x10 reps each leg M7 PT-IP Assessment and Plan Start: 11/17/22 08:21 Freq: NEEDED Status: Active Protocol: Document 11/18/22 14:43 TS (Rec: 11/18/22 15:11 TS [id number]) PT Summary Assessment and Plan Potential Rehabilitation Potential Poor Summary Impairments Pain,ROM,Strength,Balance,Tone ,Bed Mobility,Transfers,Gait, Activity Tolerance Progress Towards Goals Slow Progress due to Medical Issues,Slow Progress due to Activity Tolerance Assessment Summary Pt made some progress today with her mobility but continues to be limited by her ongoing medical issues and activity tolerance. She progressed her supine to sit to ModA with HOB elevated, does require some cueing for sequencing. She continues to require MaxA for scooting to EOB with use of transfer pad due to poor strength and fatiguing quickly. She progressed to standing x4 with MaxA and use of FWW, does have some carryover of sequencing. Pt attempted to take a step but was unable due to not being bale to pick up attendant her feet and poor balance. Pt remains fearful of falling and is fall risk. She continues to be orthostatic with BP in supine of 136/68 and in sitting 117/62, reports some dizziness. PT is recommending home / 24/10 assist and HHPT vs SNF rehab. Goals Bed Mobility Goal Standby Assistance Transfer Goal Standby Assistance,Front Wheeled Walker Gait Goal Standby Assistance,Front Wheel Walker Gait Distance 20 Days to Meet Goals 10 Frequency of Treatment Frequency Of Treatment Once a Day Treatment Plan Physical Therapy Treatment Plan Bed Mobility Training,Transfer Training,Gait Training, Therapeutic Exercise,Balance Retraining,Discharge Planning, Neuromuscular Re-ed Other Recommendations and Next Treatment Continue to progress gait and Focus transfers. Weight Bearing Status Weight Bearing Status Weight Bear as Tolerated Recommendations To Nursing Amount of Assist Needed Mechanical Lift Discharge Recommendations PT Discharge Recommendations Home vs SNF Other Discharge Recommendations Of note, pt was recently d/cd from SNF d/t inability to further progress and poor tolerance to PT given multiple medical issues. Her medical presentation does not seem to have improved since d/c from SNF. Overall functional prognosis is similar and is poor. Transportation Needs at Discharge Private Vehicle,Wheelchair/ Cabulance
--- NOTE | 2022-11-18 14:46 | CM.DPC ---
DCP Cont: Per MD, pt had syncopal episode while on the commode and likely vasovagal response but will get more orthostatics today and work with therapy and then possible discharge tomorrow with IV-Abx if stable. [facility] spoke to Thomas at [facility] and pt has high out of pocket expense, around $820 a week. Thomas spoke to Dtr and spouse and provided this information and they likely would still be willing to pay the cost for home infusion but wanting pt to be stronger before return home. [facility] faxed midline insertion note, MD orders, progress note, IV-Abx script to review. SW called spouse Bill and he confirms he is aware of the Home Infusion cost and wants pt to be able to at least stand and take a step or two to transfer into w/c for home. SW discussed that today PT was able to get pt to stand and likely could continue to work with her in the AM to confirm if she can stand pivot to a chair/wheelchair. SW discussed that pt might be medically stable to d/c by tomorrow and would need medical justification to remain hospital level of care and this does not typically involve pt's ability to ambulate. Spouse states he is aware and also that she has no SNF rehab days available at this time and confirms plan would still be to d/c home with [facility] and would pay the out of pocket expense for home infusion. SW discussed if pt able to transfer/mobilize possible option would be outpt [facility]fusion [facility] for Q24 IV-Abx although the clinic is closed F-Sun. Spouse confirms at this time he feels pt would need home infusion before outpt infusion clinic. Spouse states he has not looked into [facility] agencies at this time as their Dtr assists quite a bit as well and currently do not feel PP CG needed outside of having HH. Plan: SW to follow for plan of discharge to home with [facility] when medically stable. NHAN Rutherford
--- NOTE | 2022-11-18 15:15 | OT.IP.EVAL ---
Current Diagnoses COVID-19 (11/14/22) Past Medical History (Last Reviewed 11/14/22 @ 09:00 by Cora Maradiaga DO) Atypical migraine Bilateral lower extremity edema Chicken pox (~1951) Chronic adrenal insufficiency Chronic anticoagulation Chronic diarrhea Chronic kidney disease Hearing loss (~2011) History of DVT (deep vein thrombosis) History of kidney disease (~2002) Hyperlipidemia Hypertension Interstitial lung disease Irritable bowel syndrome (~2012) Measles (~1951) Mixed hyperlipidemia Mumps (~1951) 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 Stage 3b chronic kidney disease (CKD) Systolic CHF, chronic Venous (peripheral) insufficiency Surgical History (Last Reviewed 11/14/22 @ 09:00 by Cora Maradiaga DO) Anesthesia History of back surgery (~2012) History of left heart catheterization (LHC) History of throat surgery (~1974) Occupational Therapy Inpatient Evaluation/Re-Eval M1 PT/OT-IP Prior Functional Status Start: 11/17/22 08:21 Freq: NEEDED Status: Active Protocol: Document 11/18/22 16:52 CGR (Rec: 11/18/22 17:37 CGR [id number]) Medical Review Prior Functional Status Medical History Reviewed Yes Diet/Fluid Consistency Regular Communication PT is an effective verbal communicator. Mobility and Gait Transfers with RW and w/c, short distance steps to toilet and bed with or HH assistance Activities of Daily Living and IADL's HH aide assist for showers and little assistance for dressing Social History Household Members spouse,children Living Arrangements House Number of Floors (Floors) One Floor Number of Stairs To Enter/Railing? No steps to enter Home Environment Standard Height Toilet Home Equipment Front Wheel Walker,Manual Wheelchair,Bedside Commode,Tub Transfer Bench Employment Status Retired M2 OT-IP Current Condition Start: 11/18/22 16:52 Freq: Status: Active Protocol: Document 11/18/22 16:52 CGR (Rec: 11/18/22 17:37 CGR [id number]) Occupational Therapy Current Condition Current Condition Evaluation Date 11/18/22 Treatment Diagnosis covid Diagnosis Onset Date 11/17/22 M3 OT- IP Subjective and Pain Start: 11/18/22 16:52 Freq: Status: Active Protocol: Document 11/18/22 16:52 CGR (Rec: 11/18/22 17:37 CGR [id number]) OT- Subjective Occupational Therapy Visit Type Type Initial Evaluation Visit Start Time 14:52 Visit Stop Time 15:15 Total Visit Minutes 23 Occupational Therapy Visit Comments Patient Comments I would like some ice cream M4 OT- IP ADL's Start: 11/18/22 16:52 Freq: Status: Active Protocol: Document 11/18/22 16:52 CGR (Rec: 11/18/22 17:37 CGR [id number]) OT [id number] General Evaluation Self-Feeding Ability Independent Comments OT Self-Feeding Comments eating ice cream seated EOB OT ADL-Grooming Comments OT Grooming Comments not performed OT ADL-Oral Care Comments Oral Care Comments not performed OT ADL-Dressing Comments OT Dressing Comments not performed OT ADL-Toileting General Evaluation Toileting Ability Total Assistance Comments OT Toileting Comments pt with pur wick placed OT ADL-Bathing Comments OT Bathing Comments not performed M5 OT- IP IADL's Start: 11/18/22 16:52 Freq: Status: Active Protocol: Document 11/18/22 16:52 CGR (Rec: 11/18/22 17:37 R [id number]) OT-Instrumental Activities of Daily Living Deficits IADL Deficits Identified No Deficits Home Safety Awareness Awareness of Need for Assistance at Home Good Awareness Ability to Problem Solve Emergency Able to Problem Solve Situations Medication Management Medication Management Caregiver Administers Money Management Money Management Caregiver Provides Assistance Meal Preparation Meal Preparation Caregiver Provides Assist Disposal Man Disposal Man Caregiver Provides Assist Driving Driving Comments Pt's does all necessary driving. M6 OT- IP Functional Cognition Start: 11/18/22 16:52 Freq: Status: Active Protocol: Document 11/18/22 16:52 CGR (Rec: 11/18/22 17:37 R [id number]) Cognitive Factors Limiting Selfcare Function Cognitive Ability Level of Alertness Alert Patient Orientation Name,Age,Birthday,Month,Date, Year,Day of Week,Place, Situation Attention Span Ability Capable of Focused Attention, Capable of Sustained Attention Ability to Follow Commands Able to Follow One Step Commands with Increased Time, Able to Follow One Step Commands with Repetition OT- Vision and Hearing OT- Hearing Assessment OT- Hearing Assessment WFL OT- Vision Assessment Visual Acuity WFL Visual Attentiveness WFL Occular Pursuits WFL Visual Convergence WFL M7 OT- IP Mobility and Balance Start: 11/18/22 16:52 Freq: Status: Active Protocol: Document 11/18/22 16:52 CGR (Rec: 11/18/22 17:37 CGR [id number]) OT- Bed Mobility Assessment Supine to Sit Supine to Sit Assist Moderate Assistance Sit to Supine Sit to Supine Assist Moderate Assistance Scooting Scooting to Edge of Bed Maximum Assistance Scooting Up and Down in Bed Total Assistance,2 Person Assistance OT-Transfer Assessment Comments Mobility Comments pt declined sit to stand OT- Gait Assessment Comments Gait Ability Comments not performed OT- Balance Assessment Sitting Balance and Reactions Static Sitting Balance Ability Good Dynamic Sitting Balance Ability Fair M8 OT- IP Objective Assessments Start: 11/18/22 16:52 Freq: Status: Active Protocol: Document 11/18/22 16:52 CGR (Rec: 11/18/22 17:37 CGR [id number]) OT Gross Range of Motion Upper Extremity Range of Motion Assessment Bilaterally Impaired ROM Impairments B shlds 0-90 OT Strength Upper Extremity Strength Assessment Bilaterally Impaired Comments Strength Comments L shld 3-/5 R shld 3/5 arms and hands 3+/5 OT- Coordination Assessment Upper Extremity Finger to Nose Test Within Functional Limits Finger Tapping Test Within Functional Limits OT-Muscle Tone Assessment Muscle Tone WNL Yes OT Sensation Assessment Edema Edema Present Edema Comments Generalized edema M9 OT- IP Assessment and Plan Start: 11/18/22 16:52 Freq: Status: Active Protocol: Document 11/18/22 16:52 CGR (Rec: 11/18/22 17:37 CGR [id number]) OT Summary Assessment and Plan Potential Rehabilitation Potential Fair Analytic Complexity at Evaluation Moderate Summary OT Impairments Range of Motion,Strength, Balance,Functional Cognition, Functional Mobility,Grooming, Dressing,Toileting,Bathing, Toilet Transfers,Shower Transfers,Activity Tolerance Progress Towards Goals Slow Progress due to Medical Issues Assessment Summary Pt presents as a moderate complexity evaluation s/p admit for Covid. Pt has multiple medical problems that are impacting her ability to participate in ADLs. Pt will benefit from SNF upon discharge d/t significant generalized weakness. Goals Grooming Goal Independent Dressing Goal Independent Toileting Goal Independent Bathing Goal Independent Toilet Transfer Goal Independent Shower Transfer Goal Independent Days to Meet Goals 30 Frequency of Treatment Frequency Of Treatment Once a Day Treatment Plan OT Treatment Plan ADL Training,Functional Mobility,Patient/Family Education,Discharge Planning Other Treatment Recommendations and Next ADLs seated Treatment Focus Discharge Recommendations OT Discharge Recommendations Home vs SNF Transportation Needs at Discharge Wheelchair/Cabulance
[2022-11-18] MEDS: OXYCODONE/ACETAMINOPHEN 5/325 TABLET 1 TAB PO ×2 (15:38→21:07)
--- NOTE | 2022-11-18 17:28 | PM.PN.1 ---
Subjective Subjective Interval history: Patient had a syncopal episode when standing up to use the restroom today. Immediately came to. Orthostatic positive with PT. IV lasix stopped. Exam Vital Signs (past 8 hours): - 11/18/22 09:35 11/18/22 09:41 11/18/22 10:01 Temperature 98.1 F Pulse Rate 99 H 100 H Respiratory Rate 17 27 H Blood Pressure 129/70 Pulse Oximetry 99 99 97 Oxygen Flow Rate 11/18/22 10:30 11/18/22 14:51 Temperature 97.6 F Pulse Rate 105 H 76 Respiratory Rate 38 H 24 Blood Pressure 117/62 Pulse Oximetry 98 97 Oxygen Flow Rate 0 Oxygen Delivery Method Room Air Oxygen Flow Rate 0 Narrative Exam Narrative: NAD Fluent speech Lungs clear , normal effort CV regular Abdomen soft Legs 1+ edema Objective Labs 11/18/22 04:00 11/18/22 04:00 Labs: Laboratory Results - last 24 hr 11/18/22 11/18/22 11/18/22 04:00 04:00 04:00 WBC 12.9 H RBC 4.89 Hgb 15.0 Hct 44.8 MCV 91.7 MCH 30.7 MCHC 33.4 RDW 17.9 H Plt Count 134 L Neut % (Auto) Not Reportable Lymph % (Auto) Not Reportable [place] % (Auto) Not Reportable Eos % (Auto) Not Reportable Baso % (Auto) Not Reportable Lymph # (Auto) Not Reportable [place] # (Auto) Not Reportable Baso # (Auto) Not Reportable Total Counted 100 Seg Neutrophils % 71.0 H Band Neutrophils % 4.0 Lymphocytes % (Manual) 11.0 L Atypical Lymphs % 5.0 H Monocytes % (Manual) 8.0 Metamyelocytes % 1.0 H Neutrophils # (Manual) 9675 H RBC Morphology See below Anisocytosis 1+ H Sodium 138 Potassium 3.5 Chloride 95 L Carbon Dioxide 33 H BUN 62 H Creatinine 1.68 H Estimated GFR 31 L BUN/Creatinine Ratio 36.9 H Glucose 97 Calcium 8.9 Magnesium 2.2 PFSH Medical History Atypical migraine Bilateral lower extremity edema Chicken pox (~1951) Chronic adrenal insufficiency Chronic anticoagulation Chronic diarrhea Chronic kidney disease Hearing loss (~2011) History of DVT (deep vein thrombosis) History of kidney disease (~2002) Hyperlipidemia Hypertension Interstitial lung disease Irritable bowel syndrome (~2012) Measles (~1951) Mixed hyperlipidemia Mumps (~1951) 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 Stage 3b chronic kidney disease (CKD) Systolic CHF, chronic Venous (peripheral) insufficiency Surgical History Anesthesia History of back surgery (~2012) History of left heart catheterization (LHC) History of throat surgery (~1974) Family History Father Cancer History of heart disease Mother Hypertension Social History household members: spouse and children Smoking Status: Never smoker alcohol intake: current Assessment & Plan Assessment & Plan narrative: 1. ESBL UTI with bacteremia, POA. -changed to meropenem. -Midline placed -Home IV Abx referral started. -plan for home with ertapenem 1g daily x2 weeks 2. COVID and Acute respiratory distress (but no hypoxia), POA and resolved -possibly secondary to COVID pneumonia and acute CHF exacerbation, systolic -ED discussed with accounts receivable collector who recommended admit here and diurese -stopped IV lasix -ECHO recently done within last few weeks which showed EF 30-35% -no indication for remdesivir and dexamethasone for now 3. Chronic adrenal insufficiency, POA and stable. -continue prednisone 15mg daily -if not improving, or hypotensive, will order stress dose steroids 4. CKD 3, POA and stable. -creatinine 1.51, appears at baseline 5. History of VTE, POA and stable. -continue apixaban 6. Depression, POA and stable. -continue ssri 7. Hypothyroid, POA and stable. -continue synthroid 8. Elevated troponin, secondary to cardiac demand ischemia, POA and improved. -suspect elevated secondary to bacteremia/infection, possibly also related to CHF/covid -treat those as above 9. Weakness, POA. Lives with . He assists with wheelchair transfers, PT eval ordered. 10. VT -had 2 min sustained VT, now on amio drip and these have resolved -maintain K >4 and mag >2 -transitioned to po amio evening of 8/17 -patient will f/u with Dr. Patel her EP accounts receivable collector in clinic -previous echo on 11/07 with unchanged EF of 30-35% 11. Syncope -likely orthostatic as occured when standing on 11/18 -stopped IV lasix as likely dry -give 500cc bolus and recheck orthostatics Dispo: Home pending improvement in orthostatics. Likely 11/19. Quality VTE Deep Vein Thrombosis/Pulmonary Embolism Present on Admission: No
[2022-11-18] MEDS: SODIUM CHLORIDE 0.9% 500 ML IV (17:38)
[2022-11-19] VITALS (36 sets, daily range): BP systolic 126–159; BP diastolic 51–78; PULSE 66–120; RESP 16–85; TEMP 35.9–36.4; O2SAT 82–98
[2022-11-19 04:30] LABS: BUN Creatinine Ratio 42.6 (6-22); Blood Urea Nitrogen 72 mg/dL (7-17); Calcium 8.9 mg/dL (8.4-10.2); Carbon Dioxide 34 mmol/L (22-32); Chloride 99 mmol/L (98-107); Estimated Glomerular Filt Rate 31 mL/min (>60); Glucose 106 mg/dL (80-110); Sodium 138 mmol/L (137-145)
[2022-11-19 04:31] LABS: HEMOLYSIS 57 (0-50); Magnesium 2.2 mg/dL (1.6-2.3)
[2022-11-19 04:32] LABS: Potassium 4.1 mmol/L (3.4-5.1)
[2022-11-19 04:45] LABS: Hemoglobin 14.2 g/dL (12.0-16.0); Mean Corpuscular HGB Conc 32.9 % (30-36); Mean Corpuscular Hemoglobin 30.4 PG (26-34); Mean Corpuscular Volume 92.2 fL (80-100); Platelet Count 114 X10^3/uL (150-400); Red Blood Cell Count 4.67 X10^6/uL (4.0-5.2); White Blood Cell Count 12.9 X10^3/uL (4.5-11.0)
[2022-11-19 05:00] LABS: Add Manual Diff / Slide Review YES
[2022-11-19 05:04] LABS: Neutrophils Absolute Manual 6708 /uL (3000-5900); Total Cells Counted 100
[2022-11-19 05:05] LABS: Anisocytosis 1+
[2022-11-19] MEDS: PANTOPRAZOLE DR 40 MG TABLET PO ×2 (06:28→21:22)
[2022-11-19] MEDS: LEVOTHYROXINE 100 MCG TABLET PO (06:29)
[2022-11-19] MEDS: AMIODARONE 200 MG TABLET 400 MG PO ×2 (07:44→16:52)
[2022-11-19] MEDS: predniSONE 5 MG TABLET 15 MG PO (09:08)
[2022-11-19] MEDS: APIXABAN 5 MG TABLET 2.5 MG PO ×2 (09:08→21:22)
[2022-11-19] MEDS: CITALOPRAM 10 MG TABLET PO (09:09)
[2022-11-19] MEDS: ERTAPENEM 0.5 GM in SODIUM CHLORIDE 0.9% 100 ML IV (09:10)
[2022-11-19] MEDS: LIDOCAINE PATCH 1 EACH ADH..PATCH TOP (09:11)
[2022-11-19] MEDS: SODIUM CHLORIDE 0.9% FLUSH 10 ML IV ×2 (09:12→21:23)
[2022-11-19] MEDS: carvediloL 3.125 MG TABLET PO ×2 (09:16→21:22)
--- NOTE | 2022-11-19 11:08 | PT.IPTN ---
Current Diagnoses COVID-19 (11/14/22) Physical Therapy Treatment Note M2 PT-IP Current Condition Start: 11/17/22 08:21 Freq: NEEDED Status: Active Protocol: Document 11/17/22 10:35 MB (Rec: 11/17/22 11:25 MB [id number]) Physical Therapy Current Condition Current Condition Evaluation Date 11/17/22 Treatment Diagnosis COVID, weakness, ongoing cardiac issues Onset Date Many month decline, recent COVID M3 PT-IP Subjective Start: 11/17/22 08:21 Freq: NEEDED Status: Active Protocol: Document 11/19/22 12:54 TS (Rec: 11/19/22 13:25 TS [id number]) Subjective Physical Therapy Visit Type Type Treatment Note Visit Start Time 11:08 Visit Stop Time 11:55 Total Visit Minutes 47 Notes Spouse present. Number of BUSINESS CONTINUITY PLANNER Visits 2 Physical Therapy Visit Comments Patient Comments Pt found resting in bed, spouse in room, family upset about pt d/c today, spouse would like to see how she is moving, pt agreeable to PT. Spouse concerned about when she started having PT, informed him she was evaluated on the of this month. M4 PT-IP Mobility and Gait Start: 11/17/22 08:21 Freq: NEEDED Status: Active Protocol: Document 11/19/22 12:54 TS (Rec: 11/19/22 13:25 TS [id number]) PT-Bed Mobility Assessment Supine to Sit Supine to Sit Minimal Assistance,1 Person Assistance,Head of Bed Elevated,Bedrails Scooting Scooting to Edge of Bed Moderate Assistance PT-Transfer Assessment Sit to and From Stand Sit to and from Stand Maximum Assistance,1 Person Assistance,Use of Upper Extremities Equipment Transfer Assistive Device Gait Belt,Front Wheeled Walker Orthotic/Prosthetic Devices or Brace: No Transfers Transfer Destination Chair Transfer Technique Stand Step Pivot Transfer Ability Level of Assist Maximum Assistance,1 Person Assistance,Use of Upper Extremities Comments Mobility Comments Pt found resting in bed, agreeable to PT. Supine to sit [place] with RLE over to EOB, pt uprighted trunk with HOB elevated 45D. Pt performed sit to stand x3 MaxA. Sit to stand x1 from spouse, pt could not fully stand upright, has heavy posterior leaning. Sit to stand x2 with therapist MaxA, pt with heavy posterior leaning, c/o pain with use of gait belt. Stand step pivot transfer to chair MaxA for balance, pt required cues to keep FWW close and upright posture. In chair pt performed knee flex/ext, marches and hip adduction. Pt was left in chair with call light nearby, discussing d/c plan with SW, RN notified. Gait Assessment Gait Deviations General Gait Pattern Decreased Stride Length, Decreased Feet Clearance, Flexed Trunk,Step-to Gait Factors Limiting Gait Function Factors Limiting Gait Function Decreased Activity Tolerance, Decreased Strength, Incoordination,Limited Range of Motion,Pain,Poor Balance, Poor Safety Awareness Comments Gait Comments Stand step pivot transfer to chair. PT-Balance Assessment Sitting Balance and Reactions Static Sitting Balance Ability Good Dynamic Sitting Balance Ability Fair Standing Balance and Reactions Static Standing Balance Ability Poor Dynamic Standing Balance Ability Poor Comments Other Balance Tests/Deviations/Treatment Pt maintained midline sitting : EOB with BUE support. She retroleans heavily in standing and with transfer to chair. M6 PT-IP Treatment Start: 11/17/22 08:21 Freq: NEEDED Status: Active Protocol: Document 11/19/22 12:54 TS (Rec: 11/19/22 13:25 TS [id number]) Physical Therapy Treatment Other Treatments Other Treatment Performed Seated march, seated knee flex /ext, hip adduction. M7 PT-IP Assessment and Plan Start: 11/17/22 08:21 Freq: NEEDED Status: Active Protocol: Document 11/19/22 12:54 TS (Rec: 11/19/22 13:25 TS [id number]) PT Summary Assessment and Plan Potential Rehabilitation Potential Poor Summary Impairments Pain,ROM,Strength,Balance,Tone ,Bed Mobility,Transfers,Gait, Activity Tolerance Progress Towards Goals Slow Progress due to Medical Issues,Slow Progress due to Activity Tolerance Assessment Summary Pt made some progress today with her mobility but continues to be limited by her ongoing medical issues and activity tolerance. Spouse was present in room for caregiver training. Pt did progress to [place] for supine to sit this session, requires some assistance with LEs over to the EOB. Spouse attempted to assist pt into standing, unable to come fully into standing on first attempt. Sit to stand x2 with therapist Red, pt heavily retroleans in standing, has poor strength and balance in LEs and difficulty getting feet underneath her for stabiliy. She progressed to a stand step pivot transfer MaxA x1 to chair this session, is very unsteady on her feet. PT is recommending SNF rehab at this time. Spouse feels she is too much assist and would like to see her improve her strength before coming home. Provided some education to spouse and pt on getting mechanical lifts or sit to stand machine at home if she may require extra assistance in the future at home after rehab. Goals Bed Mobility Goal Standby Assistance Transfer Goal Standby Assistance,Front Wheeled Walker Gait Goal Standby Assistance,Front Wheel Walker Gait Distance 20 Days to Meet Goals 10 Frequency of Treatment Frequency Of Treatment Once a Day Treatment Plan Physical Therapy Treatment Plan Bed Mobility Training,Transfer Training,Gait Training, Therapeutic Exercise,Balance Retraining,Discharge Planning, Neuromuscular Re-ed Other Recommendations and Next Treatment Continue to progress gait and Focus transfers. Weight Bearing Status Weight Bearing Status Weight Bear as Tolerated Recommendations To Nursing Amount of Assist Needed Mechanical Lift Discharge Recommendations PT Discharge Recommendations SNF Rehab Other Discharge Recommendations Of note, pt was recently d/cd from SNF d/t inability to further progress and poor tolerance to PT given multiple medical issues. Her medical presentation does not seem to have improved since d/c from SNF. Overall functional prognosis is similar and is poor. Transportation Needs at Discharge Wheelchair/Cabulance
[2022-11-19] MEDS: INSULIN LISPRO 100 UNIT/ML 3ML VIAL SUBCUT ×2 (12:17→16:48)
--- NOTE | 2022-11-19 14:46 | P.PN_ITS ---
Subjective Subjective Date Patient Seen: 11/19/22 Time Patient Seen: 08:00 Interval history: She feels weak. She has some dizziness with movement which she says is chronic for her. She has no further episodes of vtach on the monitor. Exam Vital Signs (past 8 hours): - 11/19/22 07:00 11/19/22 07:00 11/19/22 09:16 Temperature 97.1 F L Pulse Rate 80 Respiratory Rate Blood Pressure 143/51 H Oxygen Delivery Method Room Air 11/19/22 07:00 11/19/22 07:30 11/19/22 07:50 Temperature Pulse Rate 68 66 90 Respiratory Rate 29 H 32 H 27 H Blood Pressure Oxygen Delivery Method 11/19/22 07:50 11/19/22 08:00 11/19/22 08:30 Temperature Pulse Rate 66 120 H Respiratory Rate 33 H 35 H Blood Pressure 142/62 H Oxygen Delivery Method 11/19/22 09:00 11/19/22 09:30 11/19/22 10:00 Temperature Pulse Rate 83 86 81 Respiratory Rate 39 H 46 H 25 H Blood Pressure Oxygen Delivery Method 11/19/22 10:30 11/19/22 11:00 11/19/22 11:19 Temperature Pulse Rate 79 76 Respiratory Rate 27 H 23 Blood Pressure 134/74 Oxygen Delivery Method 11/19/22 11:19 11/19/22 11:27 11/19/22 11:27 Temperature Pulse Rate 78 109 H Respiratory Rate 26 H 31 H Blood Pressure 147/65 H Oxygen Delivery Method Oxygen Delivery Method Room Air Oxygen Flow Rate 0 Narrative Exam Narrative: GEN: no acute distress CV: regular, no murmurs PULM: clear bilaterally ABD: soft, nontender EXT; warm and well perfused Objective Labs 11/19/22 03:45 11/19/22 03:45 Labs: Laboratory Results - last 24 hr 11/19/22 11/19/22 11/19/22 03:45 03:45 03:45 WBC 12.9 H RBC 4.67 Hgb 14.2 Hct 43.0 MCV 92.2 MCH 30.4 MCHC 32.9 RDW 18.0 H Plt Count 114 L Neut % (Auto) Not Reportable Lymph % (Auto) Not Reportable [place] % (Auto) Not Reportable Eos % (Auto) Not Reportable Baso % (Auto) Not Reportable Lymph # (Auto) Not Reportable [place] # (Auto) Not Reportable Baso # (Auto) Not Reportable Total Counted 100 Seg Neutrophils % 51.0 Band Neutrophils % 1.0 L Lymphocytes % (Manual) 33.0 Atypical Lymphs % 1.0 H Monocytes % (Manual) 11.0 Metamyelocytes % 3.0 H Neutrophils # (Manual) 6708 H Plt Morphology Comment RBC Morphology See below Anisocytosis 1+ H Sodium 138 Potassium 4.1 Chloride 99 Carbon Dioxide 34 H BUN 72 H Creatinine 1.69 H Estimated GFR 31 L BUN/Creatinine Ratio 42.6 H Glucose 106 Calcium 8.9 Magnesium 2.2 PFSH Medical History Atypical migraine Bilateral lower extremity edema Chicken pox (~1951) Chronic adrenal insufficiency Chronic anticoagulation Chronic diarrhea Chronic kidney disease Hearing loss (~2011) History of DVT (deep vein thrombosis) History of kidney disease (~2002) Hyperlipidemia Hypertension Interstitial lung disease Irritable bowel syndrome (~2012) Measles (~1951) Mixed hyperlipidemia Mumps (~1951) 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 Stage 3b chronic kidney disease (CKD) Systolic CHF, chronic Venous (peripheral) insufficiency Surgical History Anesthesia History of back surgery (~2012) History of left heart catheterization (LHC) History of throat surgery (~1974) Family History Father Cancer History of heart disease Mother Hypertension Social History household members: spouse and children Smoking Status: Never smoker alcohol intake: current Assessment & Plan Assessment & Plan narrative: 1. ESBL UTI with bacteremia, POA. -changed to meropenem. -Midline placed -Home IV Abx referral started. -plan for home with ertapenem 1g daily x2 weeks, day 1 11/16 2. COVID and Acute respiratory distress (but no hypoxia), POA and resolved -possibly secondary to COVID pneumonia and acute CHF exacerbation, systolic -ED discussed with technical sourcing recruiter who recommended admit here and diurese -stopped IV lasix -ECHO recently done within last few weeks which showed EF 30-35% -no indication for remdesivir and dexamethasone for now 3. Chronic adrenal insufficiency, POA and stable. -continue prednisone 15mg daily -if not improving, or hypotensive, will order stress dose steroids 4. CKD 3, POA and stable. -creatinine appears near baseline 5. History of VTE, POA and stable. -continue apixaban 6. Depression, POA and stable. -continue ssri 7. Hypothyroid, POA and stable. -continue synthroid 8. Elevated troponin, secondary to cardiac demand ischemia, POA and improved. -suspect elevated secondary to bacteremia/infection, possibly also related to CHF/covid -treat those as above 9. Weakness, POA. Lives with . He assists with wheelchair transfers, PT eval ordered. 10. VT -had 2 min sustained VT, placed on amio with improvement -maintain K >4 and mag >2 -transitioned to po amio evening of 11/17 -patient will f/u with Dr. Patel her EP technical sourcing recruiter in clinic -previous echo on 11/07 with unchanged EF of 30-35% 11. Syncope -likely orthostatic as occured when standing on 11/18 -stopped IV lasix as likely dry Dispo: patient medically stable for discharge, is deconditioned and dispo is being worked on Quality VTE Deep Vein Thrombosis/Pulmonary Embolism Present on Admission: No
[2022-11-19] MEDS: OXYCODONE/ACETAMINOPHEN 5/325 TABLET 1 TAB PO ×2 (15:06→20:02)
--- NOTE | 2022-11-19 15:57 | CM.DPC ---
DCP Continued: DISH WASHER reviewed EMR. Per provider in rounds, patient medically cleared to d/c today. Daughter requested to speak with CM team re: discharge plan. Daughter and spouse spoke with this DISH WASHER in [facility] about their concerns with patient d/c home with spouse. Spouse does not believe he can meet her caregiving needs and believes she needs SNF. Patient is believed to be out of Medicare days to cover SNF and would have to pay privately. Spouse discussed his frustrations with patient being so weak, claiming that it was the hospitals fault? Spouse believes her weakness is reason to keep her in the hospital, claiming you [you meaning the hospital] broke her you should fix it. Discussed home with [address] [place] [address]/S transport home. Patient family would like to pursue private pay SNF at [facility]. Family had logistical questions regarding how to pursue private pay at [facility]. DISH WASHER updated provider that patient and family had concerns about patient's d/c. Provider agreed to speak with them again. DISH WASHER spoke with PT team re: patient's safe d/c plan. PT planning to work with them again today. DISH WASHER spoke with Anisha at [facility]. Anisha kindly agree to review case and answer this DISH WASHER's questions. Anisha reported that $420/day would cover meals, room and board, nursing, and health aids. Payment can be cask or check and requires 30 days up front but unused days will be refunded. Therapies are billed through medicare part B. Pharmacy is billed to patient not facility and the IV could be between $70-140/day. Due to patient's COVID, it would be tomorrow when they would be able to accept patient with an appropriate isolation room. Anisha reports they likely will not be able to use [facility] due to not having a contract with outside vendors. DISH WASHER updated patient and family on previously stated information. Patient and spouse expressed verbal understanding. Patient and spouse would like to no longer use [facility] and would like to continue with infusions at [facility]. DISH WASHER called [facility] and spoke with Arturo pharmacist. Reported patient will no longer be needing their services and would be getting infusion at SNF. Anisha called to report she is double checking, but patient may have 10 days of Medicare coverage for SNF left. She will double check on Monday. DISH WASHER reported this to patient. DISH WASHER updated nursing staff and provider about current plan to d/c to SNF private pay. Plan: patient will d/c to [facility] private pay Monday at 11am. CM team will continue to follow closely. NHAN Goncalves
[2022-11-19] MEDS: NYSTATIN SUSP 500,000 UNIT/5 ML UDC 500000 UNIT PO (19:48)
[2022-11-20 00:28] VITALS: BP 144/77; PULSE 60; RESP 18; TEMP 36.5; O2SAT 95
[2022-11-20 04:00] VITALS: BP 156/94; PULSE 80; RESP 18; TEMP 35.9; O2SAT 96
[2022-11-20 04:49] LABS: Add Manual Diff / Slide Review NO; Basophils Absolute Auto 100 /uL (0-100); Basophils Percent Auto 0.6 % (0-2); Eosinophils Absolute Auto 0 /uL (0-450); Eosinophils Percent Auto 0.2 % (2-4); Hematocrit 39.2 % (36-46); Hemoglobin 12.7 g/dL (12.0-16.0); Lymphocytes Absolute Auto 3200 /uL (1100-4500); Lymphocytes Percent Auto 25.1 % (25-40); Mean Corpuscular HGB Conc 32.3 % (30-36); Mean Corpuscular Volume 92.8 fL (80-100); Monocytes Absolute Auto 800 /uL (0-900); Monocytes Percent Auto 6.6 % (3-14); Neutrophils Absolute Auto 8700 /uL (1500-7000); Neutrophils Percent Auto 67.5 % (50-75); Platelet Count 141 X10^3/uL (150-400); Red Blood Cell Count 4.22 X10^6/uL (4.0-5.2); Red Cell Distribution Width 17.4 % (11.6-14.8); White Blood Cell Count 12.8 X10^3/uL (4.5-11.0)
[2022-11-20 05:04] LABS: BUN Creatinine Ratio 43.1 (6-22); Blood Urea Nitrogen 69 mg/dL (7-17); Calcium 8.9 mg/dL (8.4-10.2); Carbon Dioxide 35 mmol/L (22-32); Chloride 100 mmol/L (98-107); Estimated Glomerular Filt Rate 33 mL/min (>60); Glucose 110 mg/dL (80-110); HEMOLYSIS < 15 (0-50); Potassium 4.2 mmol/L (3.4-5.1); Sodium 139 mmol/L (137-145)
[2022-11-20 05:05] LABS: Magnesium 2.5 mg/dL (1.6-2.3)
[2022-11-20] MEDS: LEVOTHYROXINE 100 MCG TABLET PO (06:20)
[2022-11-20] MEDS: PANTOPRAZOLE DR 40 MG TABLET PO (06:20)
[2022-11-20 08:00] VITALS: BP 146/79; PULSE 85; RESP 16; O2SAT 100
[2022-11-20 08:17] VITALS: BP 146/79; PULSE 80
[2022-11-20] MEDS: AMIODARONE 200 MG TABLET 400 MG PO (08:17)
[2022-11-20] MEDS: APIXABAN 5 MG TABLET 2.5 MG PO (08:17)
[2022-11-20] MEDS: carvediloL 3.125 MG TABLET PO (08:17)
[2022-11-20] MEDS: NYSTATIN SUSP 500,000 UNIT/5 ML UDC 500000 UNIT PO (08:17)
[2022-11-20] MEDS: CITALOPRAM 10 MG TABLET PO (08:17)
[2022-11-20] MEDS: predniSONE 5 MG TABLET 15 MG PO (08:17)
[2022-11-20] MEDS: SODIUM CHLORIDE 0.9% FLUSH 10 ML IV (08:19)
[2022-11-20] MEDS: ERTAPENEM 0.5 GM in SODIUM CHLORIDE 0.9% 100 ML IV (09:08)
--- NOTE | 2022-11-20 10:21 | P.DS_ITS ---
History of Present Illness History of Present Illness Chief complaint: Generalized weakness Narrative: Ms. Burger is a 76W with PMH chronic adrenal insufficiency, CKD stage 3, hx of VTE, CHFrEF, ILD, CAD with LCx of 50% and no intervention indicated who presents to the hospital with chills. She notes she has some back discomfort and chills. She also had mild shortness of breath. She had swelling in her legs. She had no known sick contacts and has been vaccinated against COVID. She states she is being evaluated for pacemaker later this week by her undercollar maker. Her last EF is notable from earlier this month and was 35%. In the ED workup was done, vitals notable for afebrile, heart rate 110s, respiratory rate 20s, blood pressure 160s/70s, sats 98% room air. Labs reviewed by me and notable for WBC 7.7, hgb 13.7, plts 122. BUN 41, creatinine 1.51. Glucose 64. Lactate 2.4. Trop 0.087->0.12. BNP 68674. Procal 0.55. Urine positive for leuk esterase, nitrates, bacteria. COVID positive. Chest xray reviewed by me and notable for pulmonary edema. She was admitte dfor further treatment. Discharge Providers Provider Date of admission: 11/14/22 13:25 Discharge Date: 11/20/22 Primary care physician: Jamir Garcia MD Consults: 11/16/22 16:26 Consult to Physical Therapy Evaluate & Treat Comment: Physician Instructions: Evaluate and Treat 11/17/22 14:09 Consult to Occupational Therapy Evaluate & Treat Comment: Physician Instructions: Evaluate and treat Discharge provider: Justin Daniels MD Summary Hospital Course Discharge Diagnosis: 1. ESBL UTI and bacteremia 2. COVID positive, acute respiratory distress 3. Chronic adrenal insufficiency 4. Thrush 5. CKD stage 3 6. History of VTE 7. Depression 8. Hypothyroidism 9. Cardiac demand ischemia 10. Weakness 11. Ventricular tachycardia 12. Syncope 13. CAD 14. CHFrEF Hospital Course: Ms. Burger presented to the hospital and was found to have multiple medical issues. She ultimately had an ESBL UTI and bacteremia and her first day of treatment is 11/16 so she should have ertapenem 1gm daily through November 29. She was also COVID positive, but remdesivir was not indicated as she had no hypoxemia. She already is chronically on steroids and is chronically adrenally insufficient. She also was found to have thrush and should be on nystatin for one week after discharge and be reevaluated. She had a mild CHF exacerbation and her lasix dose was increased. Ultimately she likely became mildly dehydrated and had an episode of stable sustained ventricular tachycardia which resolved with amiodarone. She did syncopize as well and her diuresis was held. She is quite deconditioned and will be discharged to SNF. Exam Vital Signs (past 8 hours): - 11/20/22 04:00 11/20/22 08:17 Temperature 96.7 F L Pulse Rate 80 80 Respiratory Rate 18 Blood Pressure 156/94 H 146/79 H Pulse Oximetry 96 Oxygen Flow Rate 0 Oxygen Delivery Method Room Air Oxygen Flow Rate 0 Narrative Exam Narrative: GEN: no acute distress CV: regular, no murmurs PULM: clear bilaterally ABD: soft, nontender EXT; warm and well perfused Objective Labs 11/20/22 04:35 11/20/22 04:35 Labs: Laboratory Results - last 24 hr 11/20/22 11/20/22 11/20/22 04:35 04:35 04:35 WBC 12.8 H RBC 4.22 Hgb 12.7 Hct 39.2 MCV 92.8 MCH 30.0 MCHC 32.3 RDW 17.4 H Plt Count 141 L Neut % (Auto) 67.5 Lymph % (Auto) 25.1 [place] % (Auto) 6.6 Eos % (Auto) 0.2 L Baso % (Auto) 0.6 Neut # (Auto) 8700 H Lymph # (Auto) 3200 [place] # (Auto) 800 Eos # (Auto) 0 Baso # (Auto) 100 Sodium 139 Potassium 4.2 Chloride 100 Carbon Dioxide 35 H BUN 69 H Creatinine 1.60 H Estimated GFR 33 L BUN/Creatinine Ratio 43.1 H Glucose 110 Calcium 8.9 Magnesium 2.5 H [facility] Medical History Atypical migraine Bilateral lower extremity edema Chicken pox (~1951) Chronic adrenal insufficiency Chronic anticoagulation Chronic diarrhea Chronic kidney disease Hearing loss (~2011) History of DVT (deep vein thrombosis) History of kidney disease (~2002) Hyperlipidemia Hypertension Interstitial lung disease Irritable bowel syndrome (~2012) Measles (~1952) Mixed hyperlipidemia Mumps (~195) 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 Stage 3b chronic kidney disease (CKD) Systolic CHF, chronic Venous (peripheral) insufficiency Surgical History Anesthesia History of back surgery (~2012) History of left heart catheterization (LHC) History of throat surgery (~1974) Family History Father Cancer History of heart disease Mother Hypertension Social History household members: spouse and children Smoking Status: Never smoker alcohol intake: current Discharge Plan Discharge Plan Patient Disposition: Home Health Service Provider Discharge Comment: Ms. Burger was admitted with a urinary infection. She had a bacteria that was resistant to multiple antibiotics, and the infection got into her blood. She was planned to have have IV antibiotics through 11/29. She also had a new abnormal heart rhythm, possibly related to infection, and this improved with a new heart medication. She was referred to an infectious disease specialist Discharge orders & Medications Prescriptions: New amiodarone 200 mg Tablet 200 mg PO BIDWM 30 Days Qty: 60 0RF ertapenem 1 gram recon soln 1 g IV DAILY Qty: 10 0RF nystatin 100,000 unit/mL Suspension 500,000 unit PO QID Qty: 20 0RF Continued pantoprazole 40 mg tablet,delayed release (DR/EC) 40 mg PO BID Qty: 180 3RF Rx Instructions: Dose change from 40 mg qd to 40 mg bid. Please d/c previous script that was sent today. Thanks! potassium chloride 20 mEq tablet,ER particles/crystals 20 meq PO DAILY carvedilol 3.125 mg tablet 3.125 mg PO BID cholecalciferol (vitamin D3) [Vitamin D3] 125 mcg (5,000 unit) tablet 5,000 unit PO DAILY Eliquis 2.5 mg tablet 2.5 mg PO BID lidocaine 4 % adhesive patch,medicated 1 patch topical DAILY PRN citalopram 10 mg tablet 10 mg PO DAILY prednisone 5 mg tablet 15 mg PO DAILY levothyroxine 100 mcg tablet 100 mcg PO DAILY Jardiance 25 mg tablet 12.5 mg PO DAILY ondansetron HCl 4 mg tablet 4 mg PO Q4H PRN (Reason: Nausea) acetaminophen 500 mg Tablet 500 mg PO Q6H PRN (Reason: Pain (Scale Score 1-3)) furosemide 20 mg tablet 20 mg PO DAILY oxycodone-acetaminophen 5-325 mg tablet 1 tab PO Q4H PRN (Reason: Pain (Scale Score 7-10)) Qty: 10 0RF polyethylene glycol 3350 17 gram powder in packet 17 gram PO DAILY PRN (Reason: Constipation) Follow up/Referrals: [facility] [Provider Group] - 2 Weeks (vtach while hospitalized, on amio) Jamir Garcia MD [Primary Care Provider] - 1 Week (hospitalized esbl uti/bacteremia, new vtach now on amio) Other Ambulatory Orders: Referral to: (Schedule) Timeframe: 1 Week Location: Outside Services Ordered By: Don Flores Visit Report/Discharge Packet Stand Alone Forms: Patient Portal/API, Stroke Signs & Symptoms Discharge Data Primary Care Provider: Jamir Garcia V Quality VTE Deep Vein Thrombosis/Pulmonary Embolism Present on Admission: No
[2022-11-20] MEDS: OXYCODONE/ACETAMINOPHEN 5/325 TABLET 1 TAB PO (11:03)
--- NOTE | 2022-11-20 11:24 | PC.NURSE ---
Day shift: pt A&Ox4, tolerating breakfast. Pt turned away physical therapy in AM. Pt up to [facility] with 2PA. Pt expresses desire to go home [facility] time [facility], pt educated on importance on working with physical therapy to strengthen self to reach goal of home. Pt assisted 2PA to wheelchair for [facility] transport. Pt midline kept in place for outpatient antibiotics at SNF. Pt absent of any other IV and telemetry. Pt wheeled via wheelchair with [facility] transport at approximately 11:11.
--- NOTE | 2022-11-20 11:50 | CM.DPC ---
DCP Continued: TONGUE BINDER reviewed EMR. TONGUE BINDER spoke with Anisha at [facility]. All seems to be in place for 1100 d/c. TONGUE BINDER entered room and reminded patient of 1100 pickling machine operator time. Patient reported she would tell her spouse. TONGUE BINDER updated provider on documentation needs to send to [facility]. TONGUE BINDER printed signed med list and provider signed. TONGUE BINDER faxed signed med list, d/c summary, and PASRR to [facility]. TONGUE BINDER gave patient copy of IMM rights paperwork. TONGUE BINDER gave nursing staff nurse report number. TONGUE BINDER told nursing staff and charge nurse d/c timeline. TONGUE BINDER updated INSURANCE PLAN SPECIALIST on d/c timeline. TONGUE BINDER forgot to place original PASRR, signed med list, and IV script in d/c packet. TONGUE BINDER walked over to [facility] to hand deliver it to [facility] from their SNF staff. [facility] accepted and appeared appreciative. Plan: patient d/c'ed to [facility] today at 1100 via wheelchair. CM team will continue to follow as needed. NHAN Goncalves
== END 2022-11-20 11:11 | DRG 689 ==
LOC: ED 12:47 → AC 13:26 → ICU 11-16 20:14
PROVIDERS: Hospitalist; Student in an Organized Health Care Education/Training Program; Admitting Provider Internal Medicine; Emergency Provider Emergency Medicine; PCP Internal Medicine; Referring Provider Emergency Medicine; Visit Provider Internal Medicine
DX: N39.0 Urinary tract infection, site not specified (principal); I50.21 Acute systolic (congestive) heart failure; U07.1 COVID-19; E27.40 Unspecified adrenocortical insufficiency; I24.8 Other forms of acute ischemic heart disease; I13.0 Hypertensive heart and chronic kidney disease with heart failure and stage 1 through stage 4 chronic kidney disease, or unspecified chronic kidney disease; I47.20 Ventricular tachycardia, unspecified; E03.9 Hypothyroidism, unspecified; F32.A Depression, unspecified; B96.20 Unspecified Escherichia coli [E. coli] as the cause of diseases classified elsewhere; R06.03 Acute respiratory distress; N18.30 Chronic kidney disease, stage 3 unspecified; B37.9 Candidiasis, unspecified; R55 Syncope and collapse; Z79.52 Long term (current) use of systemic steroids; Z86.718 Personal history of other venous thrombosis and embolism; Z79.01 Long term (current) use of anticoagulants
CPT/HCPCS: 36415; 71045; 80048; 80053; 81001; 82550; 82962; 83605; 83735; 83880; 84145; 84484; 85007; 85025; 85027; 87040; 87077; 87086; 87154; 87186; 87633; 93005; 96365; 96366; 96375; 97110; 97162; 97166; 97530; 97535; 99284; 99285; J0282; J0696; J1170; J1335; J1642; J1815; J1940; J2185

== ENCOUNTER → 2022-11-22 22:02 | Outpatient (ROUT) | payer MEDICARE, OTHER, SELFPAY ==
[2022-11-14 13:28] VITALS: BMI 26.2
[2022-11-22 22:16] LABS: Add Manual Diff / Slide Review NO; Basophils Absolute Auto 0 /uL (0-100); Basophils Percent Auto 0.3 % (0-2); Eosinophils Absolute Auto 0 /uL (0-450); Eosinophils Percent Auto 0.3 % (2-4); Hematocrit 40.1 % (36-46); Hemoglobin 12.6 g/dL (12.0-16.0); Lymphocytes Absolute Auto 2100 /uL (1100-4500); Lymphocytes Percent Auto 16.2 % (25-40); Mean Corpuscular HGB Conc 31.5 % (30-36); Mean Corpuscular Hemoglobin 30.1 PG (26-34); Mean Corpuscular Volume 95.7 fL (80-100); Monocytes Absolute Auto 600 /uL (0-900); Monocytes Percent Auto 4.3 % (3-14); Neutrophils Absolute Auto 10300 /uL (1500-7000); Neutrophils Percent Auto 78.9 % (50-75); Platelet Count 177 X10^3/uL (150-400); Red Blood Cell Count 4.19 X10^6/uL (4.0-5.2); Red Cell Distribution Width 17.9 % (11.6-14.8); White Blood Cell Count 13.1 X10^3/uL (4.5-11.0)
[2022-11-22 22:20] LABS: BUN Creatinine Ratio 39.2 (6-22); Blood Urea Nitrogen 56 mg/dL (7-17); Calcium 8.8 mg/dL (8.4-10.2); Carbon Dioxide 28 mmol/L (22-32); Chloride 103 mmol/L (98-107); Estimated Glomerular Filt Rate 38 mL/min (>60); Glucose 112 mg/dL (80-110); HEMOLYSIS < 15 (0-50); Potassium 4.2 mmol/L (3.4-5.1); Sodium 141 mmol/L (137-145)
[2022-11-22 22:51] LABS: Thyroid Stimulating Hormone 0.584 uIU/mL (0.47-4.68)
== END ==
PROVIDERS: PCP Internal Medicine; Visit Provider Internal Medicine
DX: R55 Syncope and collapse (principal); E03.9 Hypothyroidism, unspecified; R53.83 Other fatigue
CPT/HCPCS: 80048; 84443; 85025

== ENCOUNTER → 2022-12-16 19:41 | Outpatient (ROUT) | payer MEDICARE, OTHER, SELFPAY ==
[2022-11-14 13:28] VITALS: BMI 26.2
[2022-12-16 19:50] LABS: Hematocrit 39.4 % (36-46); Hemoglobin 12.7 g/dL (12.0-16.0); Mean Corpuscular HGB Conc 32.2 % (30-36); Mean Corpuscular Hemoglobin 30.2 PG (26-34); Platelet Count 145 X10^3/uL (150-400); Red Blood Cell Count 4.19 X10^6/uL (4.0-5.2); Red Cell Distribution Width 18.2 % (11.6-14.8); White Blood Cell Count 12.1 X10^3/uL (4.5-11.0)
[2022-12-16 19:51] LABS: Add Manual Diff / Slide Review YES
[2022-12-16 19:58] LABS: BUN Creatinine Ratio 31.5 (6-22); Blood Urea Nitrogen 57 mg/dL (7-17); Carbon Dioxide 22 mmol/L (22-32); Chloride 111 mmol/L (98-107); Estimated Glomerular Filt Rate 28 mL/min (>60); Glucose 243 mg/dL (80-110); HEMOLYSIS < 15 (0-50); Potassium 5.2 mmol/L (3.4-5.1); Sodium 139 mmol/L (137-145)
[2022-12-16 20:02] LABS: Neutrophils Absolute Manual 9922 /uL (3000-5900); Total Cells Counted 100
[2022-12-16 20:03] LABS: Anisocytosis 1+
== END ==
PROVIDERS: PCP Internal Medicine; Visit Provider Internal Medicine
DX: I50.22 Chronic systolic (congestive) heart failure (principal); I22.0 Subsequent ST elevation (STEMI) myocardial infarction of anterior wall
CPT/HCPCS: 80048; 85007; 85025

== ENCOUNTER → 2023-02-13 14:16 | Outpatient (ROUT) | payer MEDICARE, OTHER, SELFPAY ==
[2022-11-14 13:28] VITALS: BMI 26.2
[2023-02-13 14:25] LABS: Appearance Urine UA CLEAR; Bilirubin Urine UA NEGATIVE (NEGATIVE); Color Urine UA YELLOW; Glucose Urine UA 3+ g/dL (Negative); Ketones Urine UA NEGATIVE (NEGATIVE); Leukocyte Esterase Urine UA 1+ (NEGATIVE); Nitrite Urine UA POSITIVE (Negative); Occult Blood Urine UA TRACE-INTACT (Negative); Protein Urine UA NEGATIVE (Negative); Specific Gravity Urine UA 1.025 (1.000-1.035); Urobilinogen Urine UA 0.2 E.U./dL (0.2)
[2023-02-13 14:31] LABS: RBC Urine 5-10/HPF (0-5/HPF); WBC Urine 5-10/HPF (0-5/HPF)
[2023-02-13 14:32] LABS: Bacteria Urine Many (>30); Culture Indicated Urine Specimen Cultured; Squamous Epithelial Cell Urine 1-5 /HPF (0-5/HPF)
== END ==
PROVIDERS: Visit Provider Internal Medicine
DX: N39.0 Urinary tract infection, site not specified (principal)
CPT/HCPCS: 81001; 87077; 87086; 87186

== ENCOUNTER 2023-02-20 09:49 | Inpatient (IN) | payer MEDICARE, OTHER, SELFPAY ==
[2023-02-14 11:37] VITALS: BMI 26.2
[2023-02-20] VITALS (27 sets, daily range): BP systolic 111–176; BP diastolic 54–112; PULSE 79–120; RESP 18–35; TEMP 36.4; O2SAT 92–100; BMI 26.8
--- NOTE | 2023-02-20 10:02 | DI.RAD.S_ITS ---
PROCEDURE: XR CHEST 1V INDICATIONS: chest pain TECHNIQUE: One view of the chest was acquired. COMPARISON: [facility], CR, XR CHEST 2 VIEWS, 12/20/2022, 19:59. [facility], CR, XR CHEST 1V, 11/14/2022, 9:04. [facility], CR, XR CHEST 2V, 09/21/2022, 14:41. FINDINGS: Surgical changes and devices: Left chest wall generator with intravenous leads. Lungs and pleura: Lungs are clear. No pleural effusions or pneumothorax. Scarring in the left lung base and right middle lung zone. Mediastinum: Mediastinal contours appear normal. Heart size is normal. Bones and chest wall: No suspicious bony lesions. Overlying soft tissues appear unremarkable. IMPRESSION: No acute cardiopulmonary abnormality is seen. Dictated by: Kem Catherine M.D. on 02/20/2023 at 10:46 Approved by: Kem Catherine M.D. on 02/20/2023 at 10:50
--- NOTE | 2023-02-20 10:13 | ED.GENADULT ---
HPI - General Adult General Chief complaint: Abdominal Pain Stated complaint: abd pain/ chest pressure Time Seen by Provider: 02/20/23 09:53 Source: patient and EMS Mode of arrival: EMS History of Present Illness HPI narrative: Patient sent here by ambulance from rehabilitation center. at bedside. I spoke with Dr. Lawrence, patient has history of DVT chronic kidney insufficiency CHF non-STEMI. Patient is on Eliquis. Patient seen by cardiology services 4 days ago for follow up for biventricular pacemaker. Patient was recently admitted hospital for sepsis. She developed weakness and poor mobility and was transferred to rehabilitation center. Patient is DNR DNI with selective treatments. Patient complains of shortness of breath and chest pressure this morning which has resolved. She also complains of left and right lower quadrant pressure pain does not radiate. Patient is being treated by Dr. Lawrence for UTI. Bladder scan will be done. Patient in no distress at this time. However she is requiring 2 L nasal cannula. She is 88% room air. Feeling better with nasal cannula. Denies any chest pain. Patient is not on oxygen at home. She states her leg swelling has improved. Denies any calf pain Related Data Home Medications Medication Instructions Recorded Confirmed polyethylene glycol 3350 17 gram 17 gram PO DAILY PRN Constipation 10/09/17 02/20/23 oral powder packet potassium chloride 20 mEq 20 meq PO DAILY 06/10/22 02/20/23 tablet,extended release(part/cryst) citalopram 10 mg tablet 10 mg PO DAILY 09/12/22 02/20/23 empagliflozin 25 mg tablet 12.5 mg PO DAILY 09/12/22 02/20/23 (Jardiance) levothyroxine 100 mcg tablet 100 mcg PO DAILY 09/12/22 02/20/23 prednisone 5 mg tablet 16 mg PO DAILY 09/12/22 02/20/23 acetaminophen 500 mg tablet 1,000 mg PO Q6H PRN Pain (Scale 09/14/22 02/20/23 Score 1-3) ondansetron HCl 4 mg tablet 4 mg PO Q4H PRN Nausea 09/14/22 02/20/23 apixaban 2.5 mg tablet (Eliquis) 2.5 mg PO BID 10/28/22 02/20/23 carvedilol 3.125 mg tablet 3.125 mg PO BID 10/28/22 02/20/23 cholecalciferol (vitamin D3) 125 5,000 unit PO DAILY 10/28/22 02/20/23 mcg (5,000 unit) tablet (Vitamin D3) lidocaine 4 % topical patch 1 patch topical DAILY PRN Pain 10/28/22 02/20/23 (Scale Score 4-6) amiodarone 200 mg tablet 200 mg PO DAILY 02/20/23 02/20/23 magnesium hydroxide 400 mg/5 mL 30 ml PO DAILY PRN Constipation 02/20/23 02/21/23 oral suspension (Milk of Magnesia) nitroglycerin 0.3 mg sublingual 0.3 mg sublingual DAILY PRN Chest 02/20/23 02/20/23 tablet Pain nystatin 100,000 unit/gram topical 1 applic topical BEDTIME rash 02/20/23 02/20/23 ointment Previous Rx's Medication Instructions Recorded pantoprazole 40 mg tablet,delayed 40 mg PO BID #180 tabs 11/09/22 release furosemide 20 mg tablet (Lasix) 20 mg PO DAILY #30 tabs 02/22/23 oxycodone-acetaminophen 5 mg-325 0.5 tab PO DAILY #3 tabs 02/22/23 mg tablet Allergies Allergy/AdvReac Type Severity Reaction Status Date / Time oxybutynin Allergy Severe tongue Verified 02/20/23 11:00 swells Sulfa (Sulfonamide Allergy Severe fever and Verified 02/20/23 11:00 Antibiotics) rash [SULFA (SULFONAMIDE ANTIBIOTICS)] sertraline Allergy Intermediate Diarrhea Verified 02/20/23 11:00 NSAIDS (Non-Steroidal Allergy Unknown Verified 02/20/23 11:00 Anti-Inflamma [NSAIDS (NON-STEROIDAL ANTI-INFLAMMA] cephalexin Allergy rash Verified 02/20/23 11:00 amoxicillin [AMOXICILLIN] AdvReac Severe rash and Verified 02/20/23 11:00 diarrhea codeine [CODEINE] AdvReac Mild headache Verified 02/20/23 11:00 duloxetine [From CYMBALTA] AdvReac Mild vomiting Verified 02/20/23 11:00 morphine [MORPHINE] AdvReac Mild vomiting Verified 02/20/23 11:00 nitrofurantoin AdvReac Mild vomiting Verified 02/20/23 11:00 [From MACROBID] carisoprodol AdvReac Verified 02/20/23 11:00 piroxicam [From Feldene] AdvReac Verified 02/20/23 11:00 tolterodine AdvReac Verified 02/20/23 11:00 Review of Systems Review of Systems Narrative: GENERAL: negative chills, fatigue, malaise, fever, sweats. HEENT: negative sinus pain, ear pain, sore throat RESPIRATORY: Positive Dyspnea, negative cough CARDIOVASCULAR: Positive chest pain, neck palpitations GASTROINTESTINAL: negative nausea, vomiting, positive abdominal pain : negative dysuria, frequency, hematuria MUSCULOSKELETAL: negative muscle or bony pain SKIN: negative rash, skin lesions NEUROLOGIC: negative weakness, numbness ROS Unobtainable: All systems reviewed & are unremarkable except as noted in HPI and below Patient History Medical History (Updated 02/21/23 @ 06:45 by Michele Roy MD) Hypothyroidism GERD (gastroesophageal reflux disease) Systolic CHF, chronic Mumps (~1951) Measles (~1951) Chicken pox (~1951) Hearing loss (~2011) History of kidney disease (~2002) Irritable bowel syndrome (~2012) Secondary hyperparathyroidism of renal origin Atypical migraine Chronic diarrhea Primary osteoarthritis involving multiple joints Venous (peripheral) insufficiency Interstitial lung disease Stage 3b chronic kidney disease (CKD) Chronic adrenal insufficiency History of DVT (deep vein thrombosis) Mixed hyperlipidemia Chronic kidney disease Hyperlipidemia Hypertension Bilateral lower extremity edema Chronic anticoagulation Surgical History History of left heart catheterization (LHC) Anesthesia History of back surgery (~2012) History of throat surgery (~1974) Family History Father Cancer History of heart disease Mother Hypertension Social History household members: spouse and children Smoking Status: Never smoker alcohol intake: current Smoking Status: Never smoker alcohol intake frequency: holidays/special occasions only Substance Use Type: does not use Exam Narrative Exam Narrative: GENERAL: in no distress, not toxic not dyspneic HEAD: Normocephalic. EYES: Pupils equal round ENT: Mucous membranes moist. NECK: Trachea midline. CARDIOVASCULAR: Regular rate and rhythm RESPIRATORY: Clear to auscultation. Breath sounds equal bilaterally. No wheezes, rales, or rhonchi. Patient is speaking full sentences. GASTROINTESTINAL: Abdomen soft, mild bilateral lower abdominal tenderness. No peritoneal signs. No pain out of portion exam. Bowel sounds are present. EXTREMITIES: No gross deformities. Mild ankle edema 1+ bilaterally. No calf tenderness. No palpable cords. BACK: No flank tenderness. NEURO: AOx4. SKIN: Warm and dry PSYCH: Not anxious, is cooperative Initial Vital Signs Initial Vital Signs: Vital Signs Pulse Rate 94 H 02/20/23 09:52 Pulse Oximetry 95 02/20/23 09:52 Oxygen Delivery Method Nasal Cannula 02/20/23 09:52 Oxygen Flow Rate 2 02/20/23 09:52 Course Orders Ordered: Discontinued Medications Acetaminophen (Acetaminophen 325 Mg Tablet) 650 mg PO Q6H PRN PRN Reason: Fever/Mild Pain (1-3) Last Admin: 02/21/23 17:25 Dose: 650 mg Documented By: HUGH Amiodarone HCl (Amiodarone 200 Mg Tablet) 200 mg PO DAILY [facility] Last Admin: 02/22/23 08:38 Dose: 200 mg Documented By: Admin: 02/21/23 08:21 Dose: 200 mg Documented By: HUGH Apixaban (Apixaban 5 Mg Tablet) 2.5 mg PO BID [facility] Last Admin: 02/22/23 08:38 Dose: 2.5 mg Documented By: Admin: 02/21/23 21:08 Dose: 2.5 mg Documented By: Admin: 02/21/23 08:22 Dose: 2.5 mg Documented By: HUGH Carvedilol (Carvedilol 3.125 Mg Tablet) 3.125 mg PO BID [facility] Last Admin: 02/22/23 08:40 Dose: 3.125 mg Documented By: Admin: 02/21/23 21:10 Dose: Not Given Documented By: Admin: 02/21/23 08:21 Dose: 3.125 mg Documented By: HUGH Furosemide (Furosemide 40 Mg/4 Ml Vial) 40 mg IV NOW ONE Stop: 02/20/23 17:56 Last Admin: 02/20/23 18:01 Dose: 40 mg Documented By: ADY Furosemide (Furosemide 40 Mg/4 Ml Vial) 40 mg IV 1600,0800 [facility] Last Admin: 02/22/23 08:39 Dose: Not Given Documented By: Admin: 02/21/23 15:45 Dose: 40 mg Documented By: Admin: 02/21/23 08:30 Dose: 40 mg Documented By: HUGH Furosemide (Furosemide 40 Mg Tablet) 40 mg PO DAILY [facility] Last Admin: 02/22/23 08:45 Dose: 40 mg Documented By: HUGH Dextrose (D10w) 100 mls @ 1,200 mls/hr IV PRN PRN PRN Reason: Hypoglycemia Insulin Human Lispro (Insulin Lispro 100 Unit/Ml 3ml Vial) 0 unit SUBCUT ACHS [facility]; Protocol Levothyroxine Sodium (Levothyroxine 100 Mcg Tablet) 100 mcg PO 0600 [facility] Last Admin: 02/22/23 05:45 Dose: 100 mcg Documented By: Admin: 02/21/23 05:45 Dose: 100 mcg Documented By: ADY(2) Naloxone HCl (Naloxone 0.4 Mg/Ml Vial) 0.2 mg IV Q2MIN PRN PRN Reason: Opiate Reversal Nitroglycerin (Nitroglycerin 0.4 Mg Sl Tab) 0.4 mg SL DAILY PRN PRN Reason: Chest Pain Non-Formulary Medication (Ondansetron Hcl) 4 mg PO Q4H PRN PRN Reason: Nausea Empagliflozin [ Jardiance] 25 Mg Tablet 12.5 mg PO DAILY [facility] Last Admin: 02/22/23 08:37 Dose: Not Given Documented By: Admin: 02/21/23 08:17 Dose: Not Given Documented By: HUGH Prednisone 1 Mg Tab 1 each PO DAILY [facility] Stop: 02/23/23 09:01 Last Admin: 02/22/23 08:37 Dose: Not Given Documented By: Admin: 02/21/23 08:22 Dose: Not Given Documented By: HUGH Ondansetron HCl (Ondansetron 4 Mg Odt) 4 mg PO Q4H PRN PRN Reason: Nausea Oxycodone/Acetaminophen (Oxycodone/Acetaminophen 5/325 Tablet) 0.5 tab PO BEDTIME PRN PRN Reason: Pain (Scale Score 4-6) Last Admin: 02/21/23 21:09 Dose: 0.5 tab Documented By: KELLEN Pantoprazole Sodium (Pantoprazole Dr 40 Mg Tablet) 40 mg PO BID [facility] Last Admin: 02/22/23 08:38 Dose: 40 mg Documented By: Admin: 02/21/23 21:09 Dose: 40 mg Documented By: Admin: 02/21/23 08:20 Dose: 40 mg Documented By: HUGH Polyethylene Glycol (Polyethylene Glycol 3350 17 Gm Powd.Pack) 17 gm PO DAILY PRN PRN Reason: Constipation Prednisone (Prednisone 5 Mg Tablet) 15 mg PO DAILY [facility] Last Admin: 02/22/23 08:38 Dose: 15 mg Documented By: Admin: 02/21/23 08:20 Dose: 15 mg Documented By: HUGH Sodium Chloride (Sodium Chloride 0.9% Flush) 10 ml IV PRN PRN PRN Reason: Flush Sodium Chloride (Sodium Chloride 0.9% Flush) 10 ml IV BID [facility] Last Admin: 02/22/23 08:39 Dose: 10 ml Documented By: Admin: 02/21/23 21:09 Dose: 10 ml Documented By: Admin: 02/21/23 08:20 Dose: 10 ml Documented By: HUGH Vital Signs Vital signs: Vital Signs - 8 hr 02/20/23 09:52 02/20/23 09:53 02/20/23 09:53 Temperature Pulse Rate 94 H Respiratory Rate Blood Pressure 140/78 Pulse Oximetry 95 94 Oxygen Delivery Method Nasal Cannula Oxygen Flow Rate 2 02/20/23 09:57 02/20/23 10:00 02/20/23 10:00 Temperature 97.6 F Pulse Rate 88 90 Respiratory Rate 20 24 Blood Pressure 140/78 142/76 H Pulse Oximetry 93 92 Oxygen Delivery Method Room Air Oxygen Flow Rate 02/20/23 10:30 02/20/23 10:31 02/20/23 10:31 Temperature Pulse Rate 88 91 H Respiratory Rate 35 H 34 H Blood Pressure 125/109 H Pulse Oximetry 98 99 Oxygen Delivery Method Oxygen Flow Rate 02/20/23 10:37 02/20/23 10:37 02/20/23 11:00 Temperature Pulse Rate 87 82 Respiratory Rate 23 24 Blood Pressure 131/102 H Pulse Oximetry 98 98 Oxygen Delivery Method Oxygen Flow Rate 02/20/23 11:01 02/20/23 11:01 02/20/23 11:30 Temperature Pulse Rate 82 82 Respiratory Rate 21 28 H Blood Pressure 164/75 H Pulse Oximetry 98 100 Oxygen Delivery Method Nasal Cannula Oxygen Flow Rate 2 02/20/23 11:31 02/20/23 11:31 02/20/23 12:00 Temperature Pulse Rate 83 81 Respiratory Rate 28 H 23 Blood Pressure 176/112 H Pulse Oximetry 99 100 Oxygen Delivery Method Nasal Cannula Oxygen Flow Rate 2 02/20/23 12:00 02/20/23 12:30 02/20/23 12:30 Temperature Pulse Rate 84 Respiratory Rate 24 Blood Pressure 161/95 H 120/75 Pulse Oximetry 99 Oxygen Delivery Method Oxygen Flow Rate 02/20/23 13:00 02/20/23 13:00 02/20/23 13:30 Temperature Pulse Rate 83 90 Respiratory Rate 33 H 30 H Blood Pressure 132/87 Pulse Oximetry 99 99 Oxygen Delivery Method Oxygen Flow Rate 02/20/23 14:00 02/20/23 14:09 02/20/23 14:09 Temperature Pulse Rate 85 88 Respiratory Rate 26 H 33 H Blood Pressure 120/67 Pulse Oximetry 98 100 Oxygen Delivery Method Oxygen Flow Rate 02/20/23 14:30 02/20/23 14:31 02/20/23 14:31 Temperature Pulse Rate 95 H 120 H Respiratory Rate 33 H 31 H Blood Pressure 135/54 L Pulse Oximetry 98 95 Oxygen Delivery Method Oxygen Flow Rate 02/20/23 15:00 02/20/23 15:00 02/20/23 15:30 Temperature Pulse Rate 85 Respiratory Rate 29 H Blood Pressure 122/64 111/62 Pulse Oximetry 98 Oxygen Delivery Method Nasal Cannula Oxygen Flow Rate 2 02/20/23 15:30 02/20/23 16:00 02/20/23 16:00 Temperature Pulse Rate 81 80 Respiratory Rate 24 Blood Pressure 139/66 Pulse Oximetry 98 99 Oxygen Delivery Method Oxygen Flow Rate 02/20/23 16:30 02/20/23 16:30 02/20/23 17:00 Temperature Pulse Rate 79 80 Respiratory Rate 25 H 20 Blood Pressure 128/74 Pulse Oximetry 99 98 Oxygen Delivery Method Oxygen Flow Rate 02/20/23 17:00 Temperature Pulse Rate Respiratory Rate Blood Pressure 138/69 Pulse Oximetry Oxygen Delivery Method Oxygen Flow Rate Medical Decision Making Lab Data 02/22/23 05:17 02/22/23 05:17 Labs: Lab Results 02/20/23 02/20/23 02/20/23 Range/Units 10:16 10:35 12:45 WBC 11.0 (4.5-11.0) X10^3/uL RBC 4.30 (4.0-5.2) X10^6/uL Hgb 13.2 (12.0-16.0) g/dL Hct 40.4 (36-46) % MCV 93.9 (80-100) fL MCH 30.7 (26-34) PG MCHC 32.6 (30-36) % RDW 18.0 H (11.6-14.8) % Plt Count 139 L (150-400) X10^3/uL Neut % (Auto) Not Reportable Lymph % (Auto) Not Reportable Tripp % (Auto) Not Reportable Eos % (Auto) Not Reportable Baso % (Auto) Not Reportable Lymph # (Auto) Not Reportable Tripp # (Auto) Not Reportable Baso # (Auto) Not Reportable Total Counted 100 Seg Neutrophils % 71.0 H (38-70) % Band Neutrophils % 1.0 L (3-7) % Lymphocytes % (Manual) 18.0 L (25-45) % Monocytes % (Manual) 5.0 (2-11) % Metamyelocytes % 2.0 H (-0) % Myelocytes % 3.0 H (-0) % Neutrophils # (Manual) 7920 H (0527-6857) /uL Nucleated RBCs 1 H ( - 0) #/Diff RBC Morphology Normal morphology PT 13.5 H (10.1-12.7) SECONDS INR 1.2 (0.9-1.3) APTT 22 L (26-36) SECONDS Sodium 138 (137-145) mmol/L Potassium 4.9 (3.4-5.1) mmol/L Chloride 107 (98-107) mmol/L Carbon Dioxide 31 (22-32) mmol/L BUN 48 H (7-17) mg/dL Creatinine 1.29 H (0.52-1.04) mg/dL Estimated GFR 42 L (>60) mL/min BUN/Creatinine Ratio 37.2 H (6-22) Glucose 92 (80-110) mg/dL Calcium 9.1 (8.4-10.2) mg/dL Magnesium 2.2 (1.6-2.3) mg/dL Total Bilirubin 1.0 (0.2-1.3) mg/dL AST 47 H (14-36) IU/L ALT 25 (<35) IU/L Alkaline Phosphatase 72 (38-126) U/L Total Creatine Kinase 34 (30-135) U/L Troponin I 0.116 H 0.108 H (0.01-0.034) ng/mL NT-Pro-B Natriuret Pep 21566 H (<450) pg/mL Total Protein 5.8 L (6.3-8.2) g/dL Albumin 3.2 L (3.5-5.0) g/dL Globulin 2.6 (1.7-4.1) g/dL Albumin/Globulin Ratio 1.2 (1.0-2.8) Lipase 74 (23-300) U/L Chlamy pneumoniae PCR Not detected (Not Detect) Adenovirus (PCR) Not detected (Not Detect) B.parapertussis DNA PCR Not detected (Not Detecte) Coronavirus OC43 (PCR) Not detected (Not Detect) Coronavirus HKU1 (PCR) Not detected (Not Detect) Coronavirus 229E (PCR) Not detected (Not Detect) SARS-CoV-2 (PCR) Not detected (Not Detecte) Coronavirus NL63 (PCR) Not detected (Not Detect) Human Metapneumovir PCR Not detected (Not Detect) Influenza Type A (PCR) Not detected (Not Detect) Influenza Type B (PCR) Not detected (Not Detect) M. pneumoniae (PCR) Not detected (Not Detect) Parainfluenza 1 (PCR) Not detected (Not Detect) Parainfluenza 2 (PCR) Not detected (Not Detect) Parainfluenza 3 (PCR) Not detected (Not Detect) Parainfluenza 4 (PCR) Not detected (Not Detect) RSV (PCR) Not detected (Not Detect) Entero/Rhino (PCR) Not detected (Not Detect) Imaging Data Chest x-ray: Radiologist's Impression: [address] [address] XRay Report Signed Patient: Marcial Burger MR#: [id number] : 1945 Acct:[id number] Age/Sex: 77 / F Date of Service: 02/20/23 Loc: ED Accession Number: [id number] Procedure: XR chest 1V Ordering Provider: Mickey Anaya MD PROCEDURE: XR CHEST 1V INDICATIONS: chest pain TECHNIQUE: One view of the chest was acquired. COMPARISON: [facility], CR, XR CHEST 2 VIEWS, 12/20/2022, 19:59. [facility], CR, XR CHEST 1V, 11/14/2022, 9:04. [facility], CR, XR CHEST 2V, 09/21/2022, 14:41. FINDINGS: Surgical changes and devices: Left chest wall generator with intravenous leads. Lungs and pleura: Lungs are clear. No pleural effusions or pneumothorax. Scarring in the left lung base and right middle lung zone. Mediastinum: Mediastinal contours appear normal. Heart size is normal. Bones and chest wall: No suspicious bony lesions. Overlying soft tissues appear unremarkable. IMPRESSION: No acute cardiopulmonary abnormality is seen. Dictated by: Kem Catherine M.D. on 02/20/2023 at 10:46 Approved by: Kem Catherine M.D. on 02/20/2023 at 10:50 Echocardiogram: Radiologist's Impression: [address] [address] Echocardiography Report Signed Patient: Marcial Burger MR#: [id number] : 1945 Acct:[id number] Age/Sex: 77 / F Date of Service: 02/20/23 Loc: ED Accession Number: [id number] Procedure: EC echo doppler complete Ordering Provider: Mickey Anaya MD [place] +---------+ [facility] +---------+ : : [address] [place] [address]. : : : : [place], [place] : : : : [id number] : : : : Phone: [phone] Echocardiogram Report + + :Name: MARCIAL BURGER Study Date: 02/20/2023 Height: 63 in : :[facility] ReadingLocation: Weight: 151 lb : : Gender: Female BSA: 1.7 m2 : :: 1945 Age: 77 yrs BP: 135/54 mmHg: :Reason For Study: CONGESTIVE HEART FAILURE : :Ordering Physician: JACLYN, : :MICKEY Performed By: Lian Cuellar : :Referring: MICKEY ANAYA : + + Interpretation Summary There is mild concentric left ventricular hypertrophy. The ejection fraction is estimated to be 25-30%. There is mild to moderate aortic regurgitation. There is mild mitral annular calcification. There is mild mitral regurgitation. Comparison is made with the echocardiogram of 11/07/2022, LV function has worsen slightly. Procedure: A two-dimensional transthoracic echocardiogram with color flow and Doppler was performed. The study quality was technically adequate. Comparison is made with the echocardiogram of 11/07/2022. The heart rate ranged between 82-91 bpm during the study. Left Ventricle: The left ventricle is normal in size. There is mild concentric left ventricular hypertrophy. The ejection fraction is estimated to be 25-30%. There is moderate to severe global hypokinesis of the left ventricle. Septal motion is consistent with conduction abnormality. Diastolic function could not be accurately assessed due to confounding valvular disease. Right Ventricle: The right ventricle is normal in size and function. Atria: The left atrial size is normal. Right atrial size is normal. There is no Doppler evidence for an interatrial shunt. Mitral Valve: The mitral valve leaflets appear mildly thickened, but open well. There is mild mitral annular calcification. There is mild mitral regurgitation. Aortic Valve: The aortic valve is trileaflet. The aortic valve opens well. There is no aortic valve stenosis. There is mild to moderate aortic regurgitation. Tricuspid Valve: The tricuspid valve is normal in structure and function. There is trace tricuspid regurgitation. Pulmonic Valve: The pulmonic valve leaflets are thin and pliable; valve motion is normal. There is trace pulmonic regurgitation. Great Vessels: The aortic root is normal size. The dimensions of the ascending aorta are normal. The IVC is of normal diameter and collapses greater than 50% with a sniff. This suggests a low right atrial pressure of 3 mm Hg. Pericardium/ Pleura There is a small loculated pericardial effusion. There is no pleural effusion. MMode/2D Measurements & Calculations LVIDd: 4.1 cm LVOT diam: 2.0 cm LVIDs: 3.4 cm Ao root diam: 2.9 cm FS: 17.0 % asc Aorta Diam: 3.1 cm EPSS: 1.0 cm IVSd: 1.3 cm LVPWd: 1.0 cm LV armstrong. diameter/BSA (cm/m^2): 2.4 LV sys. diameter/BSA (cm/m^2): 2.0 LA A2 area: 18.2 cm2 RA long axis: 4.6 cm LA A4 area: 12.4 cm2 RA area: 10.7 cm2 LA length (vol): 4.8 cm RA vol: 21.4 ml LA vol: 40.2 ml RA : 12.5 ml/m2 LA vol index: 23.4 ml/m2 IVC diam: 1.4 cm RVD1 (basal): 3.1 cm TAPSE: 1.5 cm Doppler Measurements & Calculations Ao V2 max: 162.5 cm/sec LVOT Max Porter: 82.2 cm/sec Ao V2 mean: 115.6 cm/sec LV V1 max P.8 mmHg Ao max P.8 mmHg LV V1 VTI: 13.2 cm Ao mean P.2 mmHg JOE(I,D): 1.3 cm2 Ao V2 VTI: 29.6 cm JOE(V,D): 1.5 cm2 sev ratio: 0.45 JOE indexed to BSA (cm^2/m^2): 0.79 MV E max porter: 57.4 cm/sec PA V2 max: 109.4 cm/sec MV A max porter: 90.3 cm/sec PA V2 mean: 68.3 cm/sec MV E/A: 0.64 PA mean P.1 mmHg Med Peak E' Porter: 3.6 cm/sec PA pr(Accel): 43.0 mmHg E/E' med: 15.9 MV dec time: 0.25 sec SV(LVOT): 39.9 ml Electronically signed by: Geoff Ruiz on Reading Physician:02/20/2023 04:54 PM MDM Narrative Medical decision making narrative: Patient sent here by ambulance from rehabilitation center. at bedside. I spoke with Dr. Lawrence, patient has history of DVT chronic kidney insufficiency CHF non-STEMI. Patient is on Eliquis. Patient seen by cardiology services 4 days ago for follow up for biventricular pacemaker. Patient was recently admitted hospital for sepsis. She developed weakness and poor mobility and was transferred to rehabilitation center. Patient is DNR DNI with selective treatments. Patient complains of shortness of breath and chest pressure this morning which has resolved. She also complains of left and right lower quadrant pressure pain does not radiate. Patient is being treated by Dr. Lawrence for UTI. Bladder scan will be done. Patient in no distress at this time. However she is requiring 2 L nasal cannula. She is 88% room air. Feeling better with nasal cannula. Denies any chest pain. Patient is not on oxygen at home. She states her leg swelling has improved. Denies any calf pain After history and exam CBC CMP BNP troponin EKG chest x-ray supplemental oxygen respiratory panel [facility] CC: Complicating co-morbidities: CHF STEMI Data collected from: Dr. Lawrence, patient, Medical records reviewed: Office notes from cardiology February 16, 2023 Differential considered: Includes but not limited to STEMI non-STEMI pneumonia COVID CHF exacerbation Exam documented above, pertinent findings include: Clear lung sounds however 88% room air Lab Test results independently reviewed as above. Pertinent findings: Hemoglobin 13.2 hematocrit 40.4. WBC 11.0 bands 1.0 PT 13.5 INR 1.2 PTT 22 sodium 138 potassium 4.9 BUN 48 creatinine 1.29 GFR 42 Troponin 0.116 BNP 93652 Viral swab negative Independently reviewed EKG ventricular paced rhythm rate 93 Imaging studies independently reviewed: Chest x-ray no acute finding Echocardiogram ejection fraction 25 30% Consultations: 5:[address] Whipple, cardiology. He recommends medical management. No heart catheterization at this time. I reviewed echocardiogram with him as well. Patient has been in poor health of recently. 6:10 p.m. spoke with hospitalist, agrees for admission. Dr. Flores Treatments: Lasix Re-evaluations: 11:23 a.m.. I reviewed results with patient and . We are awaiting for the daughter, who is a nurse practitioner to call back to go over the results for continued care and what they would want or not want to be done. Reviewed with him kidney function, differential diagnosis includes but not limited to pulmonary embolism which requires CT angiogram with IV contrast however V/Q scan is an option as well. With elevated troponin to proceed with further workup including but not limited to heparin and heart catheterization. They do not recall having heart catheterization in August of 2022 when she had her heart attack. Patient is still requiring 2 L nasal cannula. BNP is elevated but clinically there is no edema and she has clear lung sounds. 12:18 p.m.. Spoke with daughter, she is a nurse practitioner, Renae, at this time she does not want pulmonary embolism CT angiogram done. This will not project management professor. She does agree it could be pulmonary embolism however at this time she and family are discussing palliative care for patient. They have Ortho Spine appointment tomorrow but they understand will likely missed that and it would not project management professor for her. She will talk to her mother and father by phone to discuss treatment option plans. They do agree for admission note. Patient is requiring supplemental oxygen. They are uncertain at this time if they would like to proceed with heart catheterization or elevated troponin findings. 12:25 p.m.. Daughter called back. She would like V/Q scan. 5:56 p.m.. Spoke with daughter again. She agrees Lasix. She agrees, medical management. Would not pursue for heart catheterization. She will talk to her mother and father. Discussion: Appropriate for admission for V/Q scan as well as for CHF exacerbation. Patient requiring 2 L nasal cannula. She is protecting airway. I spoke with patient and and daughter and they all agree for admission and for medical management and not pursue aggressive treatment or surgery. No indication for transfer. I spoke with hospitalist agrees for admit Diagnosis: Acute on chronic CHF exacerbation. Elevated troponin Discharge Plan Departure Patient Disposition: Admitted as Observation Clinical Impression: CHF (congestive heart failure) Qualifiers: Heart failure type: unspecified Heart failure chronicity: acute on chronic Qualified Code(s): I50.9 - Heart failure, unspecified Admit Date/Time: 02/20/23 18:40 Admit Provider: Don Flores
--- NOTE | 2023-02-20 10:17 | PC.NURSE ---
pt o2 sat dropped to 88% on RA. Placed pt on 2L NC. Pt sat 99% with good pleth. Dr Garcia notified.
[2023-02-20 10:22] LABS: INR 1.2 (0.9-1.3); Prothrombin Time 13.5 SECONDS (10.1-12.7)
[2023-02-20 10:24] LABS: PTT Partial Thromboplastin Tim 22 SECONDS (26-36)
[2023-02-20 10:29] LABS: Alanine Aminotransferase 25 IU/L (<35); Albumin 3.2 g/dL (3.5-5.0); Albumin Globulin Ratio 1.2 (1.0-2.8); Alkaline Phosphatase 72 U/L (38-126); Aspartate Aminotransferase 47 IU/L (14-36); BUN Creatinine Ratio 37.2 (6-22); Blood Urea Nitrogen 48 mg/dL (7-17); Calcium 9.1 mg/dL (8.4-10.2); Carbon Dioxide 31 mmol/L (22-32); Chloride 107 mmol/L (98-107); Creatine Kinase 34 U/L (30-135); Estimated Glomerular Filt Rate 42 mL/min (>60); Globulin 2.6 g/dL (1.7-4.1); Glucose 92 mg/dL (80-110); Lipase 74 U/L (23-300); Magnesium 2.2 mg/dL (1.6-2.3); Potassium 4.9 mmol/L (3.4-5.1); Sodium 138 mmol/L (137-145); Total Protein 5.8 g/dL (6.3-8.2)
[2023-02-20 10:32] LABS: HEMOLYSIS 89 (0-50)
[2023-02-20 10:33] LABS: Hematocrit 40.4 % (36-46); Hemoglobin 13.2 g/dL (12.0-16.0); Mean Corpuscular HGB Conc 32.6 % (30-36); Mean Corpuscular Hemoglobin 30.7 PG (26-34); Mean Corpuscular Volume 93.9 fL (80-100); Platelet Count 139 X10^3/uL (150-400)
[2023-02-20 10:34] LABS: Add Manual Diff / Slide Review YES
[2023-02-20 10:41] LABS: Troponin I 0.116 ng/mL (0.01-0.034)
[2023-02-20 10:54] LABS: NT-proBNP (BNP-Adult 18+) 35200 pg/mL (<450)
[2023-02-20 11:01] LABS: Neutrophils Absolute Manual 7920 /uL (3000-5900); Nucleated Red Blood Cells 1 #/Diff; Total Cells Counted 100
[2023-02-20 11:02] LABS: RBC Morphology Normal Morphology
[2023-02-20 11:32] LABS: Adenovirus Not Detected (Not Detect); B. parapertussis Not Detected (Not Detecte); Bordetella pertussis Not Detected (Not Detect); Chlamydophila pneumoniae Not Detected (Not Detect); Coronavirus 229E Not Detected (Not Detect); Coronavirus HKU1 Not Detected (Not Detect); Coronavirus NL 63 Not Detected (Not Detect); Coronavirus OC43 Not Detected (Not Detect); Human Metapneumovirus Not Detected (Not Detect); Human Rhinovirus/Enterovirus Not Detected (Not Detect); Influenza A Not Detected (Not Detect); Influenza B Not Detected (Not Detect); Mycoplasma pneumoniae Not Detected (Not Detect); Parainfluenza Virus 1 Not Detected (Not Detect); Parainfluenza Virus 2 Not Detected (Not Detect); Parainfluenza Virus 3 Not Detected (Not Detect); Parainfluenza Virus 4 Not Detected (Not Detect); Respiratory Syncytial Virus Not Detected (Not Detect); SARS- CoV-2 Not Detected (Not Detecte)
--- NOTE | 2023-02-20 12:13 | DI.ECHO.S_ITS ---
[place] +---------+ Hospital +---------+ : : [address] : : : : [id number] : : : : Phone: [phone] Echocardiogram Report + + :Name: MARCIAL BLISS Study Date: 02/20/2023 Height: 63 in : :[facility] ReadingLocation: Weight: 151 lb : : Gender: Female BSA: 1.7 m2 : :: 1945 Age: 77 yrs BP: 135/54 mmHg: :Reason For Study: CONGESTIVE HEART FAILURE : :Ordering Physician: JACLYN, : :MICKEY Performed By: Lian Cuellar : :Referring: MICKEY ANAYA : + + Interpretation Summary There is mild concentric left ventricular hypertrophy. The ejection fraction is estimated to be 25-30%. There is mild to moderate aortic regurgitation. There is mild mitral annular calcification. There is mild mitral regurgitation. Comparison is made with the echocardiogram of 11/07/2022, LV function has worsen slightly. Procedure: A two-dimensional transthoracic echocardiogram with color flow and Doppler was performed. The study quality was technically adequate. Comparison is made with the echocardiogram of 11/07/2022. The heart rate ranged between 82-91 bpm during the study. Left Ventricle: The left ventricle is normal in size. There is mild concentric left ventricular hypertrophy. The ejection fraction is estimated to be 25-30%. There is moderate to severe global hypokinesis of the left ventricle. Septal motion is consistent with conduction abnormality. Diastolic function could not be accurately assessed due to confounding valvular disease. Right Ventricle: The right ventricle is normal in size and function. Atria: The left atrial size is normal. Right atrial size is normal. There is no Doppler evidence for an interatrial shunt. Mitral Valve: The mitral valve leaflets appear mildly thickened, but open well. There is mild mitral annular calcification. There is mild mitral regurgitation. Aortic Valve: The aortic valve is trileaflet. The aortic valve opens well. There is no aortic valve stenosis. There is mild to moderate aortic regurgitation. Tricuspid Valve: The tricuspid valve is normal in structure and function. There is trace tricuspid regurgitation. Pulmonic Valve: The pulmonic valve leaflets are thin and pliable; valve motion is normal. There is trace pulmonic regurgitation. Great Vessels: The aortic root is normal size. The dimensions of the ascending aorta are normal. The IVC is of normal diameter and collapses greater than 50% with a sniff. This suggests a low right atrial pressure of 3 mm Hg. Pericardium/ Pleura There is a small loculated pericardial effusion. There is no pleural effusion. MMode/2D Measurements & Calculations LVIDd: 4.1 cm LVOT diam: 2.0 cm LVIDs: 3.4 cm Ao root diam: 2.9 cm FS: 17.0 % asc Aorta Diam: 3.1 cm EPSS: 1.0 cm IVSd: 1.3 cm LVPWd: 1.0 cm LV armstrong. diameter/BSA (cm/m^2): 2.4 LV sys. diameter/BSA (cm/m^2): 2.0 LA A2 area: 18.2 cm2 RA long axis: 4.6 cm LA A4 area: 12.4 cm2 RA area: 10.7 cm2 LA length (vol): 4.8 cm RA vol: 21.4 ml LA vol: 40.2 ml RA : 12.5 ml/m2 LA vol index: 23.4 ml/m2 IVC diam: 1.4 cm RVD1 (basal): 3.1 cm TAPSE: 1.5 cm Doppler Measurements & Calculations Ao V2 max: 162.5 cm/sec LVOT Max Porter: 82.2 cm/sec Ao V2 mean: 115.6 cm/sec LV V1 max P.8 mmHg Ao max P.8 mmHg LV V1 VTI: 13.2 cm Ao mean P.2 mmHg JOE(I,D): 1.3 cm2 Ao V2 VTI: 29.6 cm JOE(V,D): 1.5 cm2 sev ratio: 0.45 JOE indexed to BSA (cm^2/m^2): 0.79 MV E max porter: 57.4 cm/sec PA V2 max: 109.4 cm/sec MV A max porter: 90.3 cm/sec PA V2 mean: 68.3 cm/sec MV E/A: 0.64 PA mean P.1 mmHg Med Peak E' Porter: 3.6 cm/sec PA pr(Accel): 43.0 mmHg E/E' med: 15.9 MV dec time: 0.25 sec SV(LVOT): 39.9 ml Electronically signed by: Geoff Ruiz on Reading Physician:02/20/2023 04:54 PM
--- NOTE | 2023-02-20 12:24 | DI.NM.S_ITS ---
PROCEDURE: NM PUL VENT AND PERFUSION RADIOPHARMACEUTICAL: 36.5 mCi Tc-99m DTPA aerosol by inhalation and 10.3 mCi Tc-99m MAA intravenously. INDICATIONS: dyspnea TECHNIQUE: Ventilation images were obtained first with Tc-99m DTPA aerosol. Subsequently, perfusion images were acquired after intravenous injection of Tc-99m MAA. Anterior, posterior, LOPEZ, AYAAN, RPO, LPO, left and right lateral views were obtained. COMPARISON: [facility], CR, XR CHEST 1V, 02/20/2023, 10:29. FINDINGS: No significant mismatched perfusion defects. There is significant clumping of radiotracer on the ventilatory images in the central airways. There are few small matched defects that may represent atelectatic lung/mucous plugging. IMPRESSION: No significant mismatched defect. The probability of significant pulmonary embolism is low. Dictated by: Alec Meeks M.D. on 02/21/2023 at 15:09 Approved by: Alec Meeks M.D. on 02/21/2023 at 15:14
[2023-02-20 13:24] LABS: Troponin I 0.108 ng/mL (0.01-0.034)
[2023-02-20] MEDS: FUROSEMIDE 40 MG/4 ML VIAL IV (18:01)
--- NOTE | 2023-02-20 22:45 | PC.NURSE ---
Pt. admitted to room 219 by admitting RN. Kurt Gauthier. Pt. denies any dyspnea & chest pain when assessment was done. Tried to contact Tele hospitalist message him twice but no response. Coordinator Louisa CORONADO. made aware. Awaiting hospitalist to place admit orders. Will monitor & continue plan of care.
[2023-02-21] VITALS (9 sets, daily range): BP systolic 111–146; BP diastolic 68–89; PULSE 56–107; RESP 16–18; TEMP 35.7–36.6; O2SAT 92–99
--- NOTE | 2023-02-21 01:55 | PC.NURSE ---
0100 Pt. requesting to be awaken to get reposition. States Can I get some sleep please!. Informed that we needed to turn her, to prevent any skin breakdown. Will continue plan of care & monitor.
--- NOTE | 2023-02-21 03:23 | P.HP_ITS ---
History of Present Illness History of Present Illness Date Patient Seen: 02/21/23 Chief complaint: abd pain/ chest pressure Narrative: 77 y/o with PMH of HFrEF, recent dual chamber pacemaker placement, pulmonary fibrosis, on steroid but not oxygen, presented with chest pain and shortness of breath. She had a recent hospitalization with UTI upon which she went to SNF for PT and OT. Four days ago seen by cardiology, follow up for recent PPM placement. In the ED workup revealed acute on chronic HF, elevated troponins. ED attending consulted cardiology, Dr Acevedo, who did not recommend angiogram for ischemic workup. Suspected PE, although on Eliquis, ordered VQ scan rather then CTA due to CKD, as requested by patient's daughter who is a nurse. Diuresed with lasix and admitted for continuous diuresis, electrolyte monitoring and VQ scan. [facility] Medical History (Updated 02/21/23 @ 06:45 by Michele Roy MD) Hypothyroidism GERD (gastroesophageal reflux disease) Systolic CHF, chronic Mumps (~1951) Measles (~1951) Chicken pox (~1951) Hearing loss (~2011) History of kidney disease (~2002) Irritable bowel syndrome (~2012) Secondary hyperparathyroidism of renal origin Atypical migraine Chronic diarrhea Primary osteoarthritis involving multiple joints Venous (peripheral) insufficiency Interstitial lung disease Stage 3b chronic kidney disease (CKD) Chronic adrenal insufficiency History of DVT (deep vein thrombosis) Mixed hyperlipidemia Chronic kidney disease Hyperlipidemia Hypertension Bilateral lower extremity edema Chronic anticoagulation Surgical History History of left heart catheterization (LHC) Anesthesia History of back surgery (~2012) History of throat surgery (~1974) Family History Father Cancer History of heart disease Mother Hypertension Social History household members: spouse and children Smoking Status: Never smoker alcohol intake: current Meds Home Medications and Allergies Home Medications Medication Instructions Recorded Confirmed Type polyethylene glycol 3350 17 gram 17 gram PO DAILY PRN Constipation 10/09/17 02/20/23 History oral powder packet potassium chloride 20 mEq 20 meq PO DAILY 06/10/22 02/20/23 History tablet,extended release(part/cryst) citalopram 10 mg tablet 10 mg PO DAILY 09/12/22 02/20/23 History empagliflozin 25 mg tablet 12.5 mg PO DAILY 09/12/22 02/20/23 History (Jardiance) levothyroxine 100 mcg tablet 100 mcg PO DAILY 09/12/22 02/20/23 History prednisone 5 mg tablet 16 mg PO DAILY 09/12/22 02/20/23 History acetaminophen 500 mg tablet 1,000 mg PO Q6H PRN Pain (Scale 09/14/22 02/20/23 History Score 1-3) ondansetron HCl 4 mg tablet 4 mg PO Q4H PRN Nausea 09/14/22 02/20/23 History apixaban 2.5 mg tablet (Eliquis) 2.5 mg PO BID 10/28/22 02/20/23 History carvedilol 3.125 mg tablet 3.125 mg PO BID 10/28/22 02/20/23 History cholecalciferol (vitamin D3) 125 5,000 unit PO DAILY 10/28/22 02/20/23 History mcg (5,000 unit) tablet (Vitamin D3) lidocaine 4 % topical patch 1 patch topical DAILY PRN Pain 10/28/22 02/20/23 History (Scale Score 4-6) pantoprazole 40 mg tablet,delayed 40 mg PO BID #180 tabs 11/09/22 02/20/23 Rx release amiodarone 200 mg tablet 200 mg PO DAILY 02/20/23 02/20/23 History fosfomycin tromethamine 3 gram 3 g PO USEASDIRECTD 02/20/23 02/20/23 History oral packet magnesium hydroxide 400 mg/5 mL PO DAILY PRN Constipation 02/20/23 History oral suspension (Milk of Magnesia) nitroglycerin 0.3 mg sublingual 0.3 mg sublingual DAILY PRN Chest 02/20/23 02/20/23 History tablet Pain nystatin 100,000 unit/gram topical 1 applic topical BEDTIME rash 02/20/23 02/20/23 History ointment oxycodone-acetaminophen 5 mg-325 0.5 tab PO BEDTIME PRN Pain (Scale 02/20/23 02/20/23 History mg tablet Score 4-6) oxycodone-acetaminophen 5 mg-325 0.5 tab PO DAILY 02/20/23 02/20/23 History mg tablet Allergies Allergy/AdvReac Type Severity Reaction Status Date / Time oxybutynin Allergy Severe tongue Verified 02/20/23 11:00 swells Sulfa (Sulfonamide Allergy Severe fever and Verified 02/20/23 11:00 Antibiotics) rash [SULFA (SULFONAMIDE ANTIBIOTICS)] sertraline Allergy Intermediate Diarrhea Verified 02/20/23 11:00 NSAIDS (Non-Steroidal Allergy Unknown Verified 02/20/23 11:00 Anti-Inflamma [NSAIDS (NON-STEROIDAL ANTI-INFLAMMA] cephalexin Allergy rash Verified 02/20/23 11:00 amoxicillin [AMOXICILLIN] AdvReac Severe rash and Verified 02/20/23 11:00 diarrhea codeine [CODEINE] AdvReac Mild headache Verified 02/20/23 11:00 duloxetine [From CYMBALTA] AdvReac Mild vomiting Verified 02/20/23 11:00 morphine [MORPHINE] AdvReac Mild vomiting Verified 02/20/23 11:00 nitrofurantoin AdvReac Mild vomiting Verified 02/20/23 11:00 [From MACROBID] carisoprodol AdvReac Verified 02/20/23 11:00 piroxicam [From Feldene] AdvReac Verified 02/20/23 11:00 tolterodine AdvReac Verified 02/20/23 11:00 Review of Systems Review of Systems Narrative: Patient was sleeping and unable to participate with ROS. Exam Vital Signs (past 8 hours): - 02/21/23 00:18 Temperature 96.2 F L Pulse Rate 60 Respiratory Rate 16 Blood Pressure 117/87 Pulse Oximetry 99 Oxygen Flow Rate 2 Oxygen Delivery Method Nasal Cannula Oxygen Flow Rate 2 Const Other: Laying in bed, sleeping, in no distress Resp Other: CTA Cardio Other: PPM insertion site healing well GI Other: not distended Extrem Other: 1 + edemas Objective Labs 02/20/23 10:16 02/20/23 10:16 Labs: Laboratory Results - last 24 hr 02/20/23 02/20/23 02/20/23 10:16 10:35 12:45 WBC 11.0 RBC 4.30 Hgb 13.2 Hct 40.4 MCV 93.9 MCH 30.7 MCHC 32.6 RDW 18.0 H Plt Count 139 L Neut % (Auto) Not Reportable Lymph % (Auto) Not Reportable [place] % (Auto) Not Reportable Eos % (Auto) Not Reportable Baso % (Auto) Not Reportable Lymph # (Auto) Not Reportable [place] # (Auto) Not Reportable Baso # (Auto) Not Reportable Total Counted 100 Seg Neutrophils % 71.0 H Band Neutrophils % 1.0 L Lymphocytes % (Manual) 18.0 L Monocytes % (Manual) 5.0 Metamyelocytes % 2.0 H Myelocytes % 3.0 H Neutrophils # (Manual) 7920 H Nucleated RBCs 1 H RBC Morphology Normal morphology PT 13.5 H INR 1.2 APTT 22 L Sodium 138 Potassium 4.9 Chloride 107 Carbon Dioxide 31 BUN 48 H Creatinine 1.29 H Estimated GFR 42 L BUN/Creatinine Ratio 37.2 H Glucose 92 Calcium 9.1 Magnesium 2.2 Total Bilirubin 1.0 AST 47 H ALT 25 Alkaline Phosphatase 72 Total Creatine Kinase 34 Troponin I 0.116 H 0.108 H NT-Pro-B Natriuret Pep 49250 H Total Protein 5.8 L Albumin 3.2 L Globulin 2.6 Albumin/Globulin Ratio 1.2 Lipase 74 Chlamy pneumoniae PCR Not detected Adenovirus (PCR) Not detected B.parapertussis DNA PCR Not detected Coronavirus OC43 (PCR) Not detected Coronavirus HKU1 (PCR) Not detected Coronavirus 229E (PCR) Not detected SARS-CoV-2 (PCR) Not detected Coronavirus NL63 (PCR) Not detected Human Metapneumovir PCR Not detected Influenza Type A (PCR) Not detected Influenza Type B (PCR) Not detected M. pneumoniae (PCR) Not detected Parainfluenza 1 (PCR) Not detected Parainfluenza 2 (PCR) Not detected Parainfluenza 3 (PCR) Not detected Parainfluenza 4 (PCR) Not detected RSV (PCR) Not detected Entero/Rhino (PCR) Not detected Assessment & Plan Assessment and plan (1) Acute on chronic systolic (congestive) heart failure: Status: Acute Plan: Diuresed with Lasix - 40 mg given in ED, continuing with 40 bid - monitored electrolytes and renal function - recent PPM placement - functional, interrogated 4 days ago - EF ~ 30 %, globally dyskinetic LV - Jardiance, Coreg, Amiodarone (2) Non-ST elevation RI (NSTEMI): Status: Acute Plan: No plans for an angiogram - medical management only - follow up with primary cardiology - discussed between ED attending and commercial fishing vessel operator travel accommodation inspector (3) Interstitial lung disease: Status: Acute Plan: - prednisone - she might need home oxygen (4) Stage 3b chronic kidney disease (CKD): Status: Acute Plan: - at baseline (5) History of DVT (deep vein thrombosis): Status: Acute Plan: Eliquis 2.5 mg bid (6) Spinal stenosis of lumbar region: Qualifiers: Neurogenic claudication status: without neurogenic claudication Qualified Code(s): M48.061 - Spinal stenosis, lumbar region without neurogenic claudication Status: Acute Plan: - poor baseline mobility and back pain - oxycodone prn (7) Acute hypoxemic respiratory failure: Status: Acute Plan: - likely due to CHF flare and underlying pulmonary fibrosis - she will probably need home oxygen evaluation once diuresed (8) GERD (gastroesophageal reflux disease): Status: Acute Plan: PPI (9) Hypothyroidism: Status: Acute Plan: - levothyroxine
[2023-02-21] MEDS: LEVOTHYROXINE 100 MCG TABLET PO (05:45)
[2023-02-21] MEDS: SODIUM CHLORIDE 0.9% FLUSH 10 ML IV ×2 (08:20→21:09)
[2023-02-21] MEDS: PANTOPRAZOLE DR 40 MG TABLET PO ×2 (08:20→21:09)
[2023-02-21] MEDS: predniSONE 5 MG TABLET 15 MG PO (08:20)
[2023-02-21] MEDS: AMIODARONE 200 MG TABLET PO (08:21)
[2023-02-21] MEDS: carvediloL 3.125 MG TABLET PO (08:21)
[2023-02-21] MEDS: APIXABAN 5 MG TABLET 2.5 MG PO ×2 (08:22→21:08)
[2023-02-21] MEDS: FUROSEMIDE 40 MG/4 ML VIAL IV ×2 (08:30→15:45)
--- NOTE | 2023-02-21 12:05 | CM.DANOTE ---
Addendum entered by NHAN Goncalves 02/21/23 16:25: Per provider, patient cleared to d/c back to [facility] today GROOVING MACHINE OPERATOR spoke with Bisi from [facility]. unable to accept patient back this afternoon. Tentative plan to take patient back tomorrow at 1100. Provider, RN, and patient updated. Original Note: DCP Assessment Note Patient is a 77yo F PMH of HFrEF, recent dual chamber pacemaker placement, pulmonary fibrosis, on steroid but not oxygen, presented with chest pain and shortness of breath (H&P). Patient is not on home O2 at this time. PCP Jose Camarillo Medicare and [employer] GROOVING MACHINE OPERATOR reviewed EMR. Patient on 2ltrs of O2 currently. From September, patient is currently staying at [facility]. September does not need PT/OT notes for patient to return. September just needs orders/new PASRR. GROOVING MACHINE OPERATOR completed PASRR. GROOVING MACHINE OPERATOR updated provider that patient can return to when medically stable will just need order. GROOVING MACHINE OPERATOR entered room and introduced self and role. Patient resting in bed joined by DPOA/Spouse Bill ([phone]). Patient confirms dcp is to return to [facility] at discharge. GROOVING MACHINE OPERATOR answered questions about status, patient is INPT at this time. Spouse reports he was excited because he felt like they were close to being able to take her home. Plan: patient to return to [facility] when medically stable. Potentially with home O2. Transport with . CM team will continue to follow closely. NHAN Goncalves Discharge Planning/Care Management CM Discharge Assessment Start: 02/21/23 12:01 Freq: Status: Active Protocol: Document 02/21/23 12:01 (Rec: 02/21/23 12:05 [id number]) Discharge Planning Assessment Assigned Senior Linux Engineer NHAN [place] DPOA/Assigned Designee Name Jabari Jennyfer (spouse) Contact Information [phone] Advance Directives? Yes: POLST Advance Directives on File Yes History Provided By Patient,Significant Other, Medical Record Prior Living Arrangements Skilled Nurse Facility Comment has been living at [facility] pay Household Members spouse,children Type of transporation used prior to Relies on Others admit Willing to Return to Facility? Yes Is patient alert and oriented? Yes Needs Assistance With Meal Prep,Home Chores / Shopping Comment FWW, wheelchair Patient/Family Preference Long Term Facility Comment patient and family preference is to return to [facility] Barriers to Discharge No Comment September from [facility] reports no PT/OT notes needed. September reports all she needs is PASRR and order at discharge Discharge Plan Long Term Facility Transportation Arrangement Likely facility transportation Referrals Initiated None needed,Other If patient plan is home with home health No : Has signed face to face form been completed? If patient plan is SNF: Has PASSR been Yes completed? SNF/HH Preference [facility] Has Agency SNF been contacted Yes Comment September reports able to accept patient back private pay. Does not need PT/OT note, needs PASRR and order at discharge Whiteboard Updated in Patient Room with Yes name and ext. # of Senior Linux Engineer Review Status In Process Next Review Type Continued Stay Review
[2023-02-21 12:07] LABS: Hematocrit 40.1 % (36-46); Mean Corpuscular HGB Conc 32.5 % (30-36); Mean Corpuscular Hemoglobin 30.7 PG (26-34); Mean Corpuscular Volume 94.4 fL (80-100); Platelet Count 117 X10^3/uL (150-400); Red Blood Cell Count 4.24 X10^6/uL (4.0-5.2)
[2023-02-21 12:08] LABS: Add Manual Diff / Slide Review YES
[2023-02-21 12:17] LABS: BUN Creatinine Ratio 34.5 (6-22); Blood Urea Nitrogen 51 mg/dL (7-17); Calcium 8.7 mg/dL (8.4-10.2); Carbon Dioxide 29 mmol/L (22-32); Chloride 106 mmol/L (98-107); Estimated Glomerular Filt Rate 36 mL/min (>60); Glucose 173 mg/dL (80-110); HEMOLYSIS 20 (0-50); Sodium 137 mmol/L (137-145)
[2023-02-21 12:24] LABS: Neutrophils Absolute Manual 8140 /uL (3000-5900); Total Cells Counted 100
[2023-02-21 12:25] LABS: Anisocytosis 1+
[2023-02-21] MEDS: ACETAMINOPHEN 325 MG TABLET 650 MG PO (17:25)
--- NOTE | 2023-02-21 19:45 | PM.PN.1 ---
Subjective Subjective Date Patient Seen: 02/21/23 Time Patient Seen: 08:00 Interval history: Today she feels back to baseline. She comes off her oxygen and has no shortness of breath. Her VQ scan is low probability for PE. Exam Vital Signs (past 8 hours): - 02/21/23 12:00 02/21/23 16:00 Temperature 97.1 F L 98 F Pulse Rate 107 H 98 H Respiratory Rate 16 17 Blood Pressure 126/89 128/78 Pulse Oximetry 92 94 Oxygen Flow Rate 2 2 Oxygen Delivery Method Nasal Cannula Oxygen Flow Rate 2 Narrative Exam Narrative: GEN: no acute distress CV: regular rate and rhythm PULM: clear bilaterally ABD: soft, nontender EXT: warm and well perfused, no edema Objective Labs 02/21/23 11:45 02/21/23 11:45 Labs: Laboratory Results - last 24 hr 02/21/23 11:45 WBC 11.0 RBC 4.24 Hgb 13.0 Hct 40.1 MCV 94.4 MCH 30.7 MCHC 32.5 RDW 18.0 H Plt Count 117 L Neut % (Auto) Not Reportable Lymph % (Auto) Not Reportable [place] % (Auto) Not Reportable Eos % (Auto) Not Reportable Baso % (Auto) Not Reportable Lymph # (Auto) Not Reportable [place] # (Auto) Not Reportable Baso # (Auto) Not Reportable Total Counted 100 Seg Neutrophils % 71.0 H Band Neutrophils % 3.0 Lymphocytes % (Manual) 21.0 L Atypical Lymphs % 1.0 H Monocytes % (Manual) 2.0 Eosinophils % (Manual) 2.0 Neutrophils # (Manual) 8140 H RBC Morphology See below Anisocytosis 1+ H Sodium 137 Potassium 4.0 Chloride 106 Carbon Dioxide 29 BUN 51 H Creatinine 1.48 H Estimated GFR 36 L BUN/Creatinine Ratio 34.5 H Glucose 173 H Calcium 8.7 PFSH Medical History (Updated 02/21/23 @ 06:45 by Michele Roy MD) Hypothyroidism GERD (gastroesophageal reflux disease) Systolic CHF, chronic Mumps (~1951) Measles (~1951) Chicken pox (~1951) Hearing loss (~2011) History of kidney disease (~2002) Irritable bowel syndrome (~2012) Secondary hyperparathyroidism of renal origin Atypical migraine Chronic diarrhea Primary osteoarthritis involving multiple joints Venous (peripheral) insufficiency Interstitial lung disease Stage 3b chronic kidney disease (CKD) Chronic adrenal insufficiency History of DVT (deep vein thrombosis) Mixed hyperlipidemia Chronic kidney disease Hyperlipidemia Hypertension Bilateral lower extremity edema Chronic anticoagulation Surgical History History of left heart catheterization (LHC) Anesthesia History of back surgery (~2012) History of throat surgery (~1974) Family History Father Cancer History of heart disease Mother Hypertension Social History household members: spouse and children Smoking Status: Never smoker alcohol intake: current Assessment & Plan Assessment and plan (1) Acute on chronic systolic (congestive) heart failure: Status: Acute Plan: Diuresed with Lasix - 40 mg given in ED, continuing with 40 bid - monitored electrolytes and renal function - recent PPM placement - functional, interrogated 4 days ago - EF ~ 30 %, globally dyskinetic LV - Jardiance, Coreg, Amiodarone (2) Non-ST elevation ID (NSTEMI): Status: Acute Plan: No plans for an angiogram - medical management only - follow up with primary cardiology - on admission was discussed between ED attending and corn cutter operator supervisor production department (3) Interstitial lung disease: Status: Acute Plan: - prednisone - now off oxygen (4) Stage 3b chronic kidney disease (CKD): Status: Acute Plan: - at baseline (5) History of DVT (deep vein thrombosis): Status: Acute Plan: Eliquis 2.5 mg bid (6) Spinal stenosis of lumbar region: Qualifiers: Neurogenic claudication status: without neurogenic claudication Qualified Code(s): M48.061 - Spinal stenosis, lumbar region without neurogenic claudication Status: Acute Plan: - poor baseline mobility and back pain - oxycodone prn (7) Acute hypoxemic respiratory failure: Status: Acute Plan: - likely due to CHF flare and underlying pulmonary fibrosis - now resolved -VQ scan negative (8) GERD (gastroesophageal reflux disease): Status: Acute Plan: PPI (9) Hypothyroidism: Status: Acute Plan: - levothyroxine Assessment & Plan narrative: Dispo: Stable for discharge today
[2023-02-21] MEDS: OXYCODONE/ACETAMINOPHEN 5/325 TABLET 0.5 TAB PO (21:09)
[2023-02-22] VITALS: BP 134/67; PULSE 86; RESP 16; TEMP 37.1; O2SAT 98
[2023-02-22 04:30] VITALS: BP 128/72; PULSE 76; RESP 18; TEMP 36.6; O2SAT 95
[2023-02-22] MEDS: LEVOTHYROXINE 100 MCG TABLET PO (05:45)
[2023-02-22 06:49] LABS: Hematocrit 38.3 % (36-46); Hemoglobin 12.5 g/dL (12.0-16.0); Mean Corpuscular HGB Conc 32.8 % (30-36); Mean Corpuscular Hemoglobin 30.8 PG (26-34); Platelet Count 126 X10^3/uL (150-400); Red Blood Cell Count 4.07 X10^6/uL (4.0-5.2); White Blood Cell Count 12.9 X10^3/uL (4.5-11.0)
[2023-02-22 06:50] LABS: Add Manual Diff / Slide Review YES
[2023-02-22 06:53] LABS: BUN Creatinine Ratio 31.6 (6-22); Blood Urea Nitrogen 56 mg/dL (7-17); Calcium 8.4 mg/dL (8.4-10.2); Carbon Dioxide 29 mmol/L (22-32); Chloride 105 mmol/L (98-107); Estimated Glomerular Filt Rate 29 mL/min (>60); Glucose 105 mg/dL (80-110); HEMOLYSIS 16 (0-50); Potassium 3.6 mmol/L (3.4-5.1); Sodium 137 mmol/L (137-145)
[2023-02-22 06:58] LABS: Neutrophils Absolute Manual 7353 /uL (3000-5900); Total Cells Counted 100
[2023-02-22 06:59] LABS: Anisocytosis 1+; Macrocytosis 1+; Ovalocytes 1+; Polychromasia 1+
[2023-02-22 08:00] VITALS: BP 146/70; PULSE 85; RESP 18; TEMP 36.6; O2SAT 96
[2023-02-22] MEDS: predniSONE 5 MG TABLET 15 MG PO (08:38)
[2023-02-22] MEDS: AMIODARONE 200 MG TABLET PO (08:38)
[2023-02-22] MEDS: APIXABAN 5 MG TABLET 2.5 MG PO (08:38)
[2023-02-22] MEDS: PANTOPRAZOLE DR 40 MG TABLET PO (08:38)
[2023-02-22] MEDS: SODIUM CHLORIDE 0.9% FLUSH 10 ML IV (08:39)
[2023-02-22 08:40] VITALS: BP 146/70
[2023-02-22] MEDS: carvediloL 3.125 MG TABLET PO (08:40)
[2023-02-22] MEDS: FUROSEMIDE 40 MG TABLET PO (08:45)
--- NOTE | 2023-02-22 10:21 | PC.NURSE ---
Pt is packed up and ready for discharge back to [facility]. Pt report called to Gaye CORONADO at [facility] and all questions answered. New brief and barrier cream applied to Pt prior to discharge.
--- NOTE | 2023-02-22 10:52 | PM.DS.1 ---
History of Present Illness History of Present Illness Date Patient Seen: 02/21/23 Chief complaint: abd pain/ chest pressure Narrative: Per admitting provider: 77 y/o with PMH of HFrEF, recent dual chamber pacemaker placement, pulmonary fibrosis, on steroid but not oxygen, presented with chest pain and shortness of breath. She had a recent hospitalization with UTI upon which she went to SNF for PT and OT. Four days ago seen by cardiology, follow up for recent PPM placement. In the ED workup revealed acute on chronic HF, elevated troponins. ED attending consulted cardiology, Dr Acevedo, who did not recommend angiogram for ischemic workup. Suspected PE, although on Eliquis, ordered VQ scan rather then CTA due to CKD, as requested by patient's daughter who is a nurse. Diuresed with lasix and admitted for continuous diuresis, electrolyte monitoring and VQ scan. Discharge Providers Provider Date of admission: 02/20/23 18:40 Discharge Date: 02/22/23 Primary care physician: Jamir Garcia MD Discharge provider: Justin Daniels MD Summary Hospital Course Discharge Diagnosis: 1. Acute on chronic CHFrEF 2. Type 2 NSTEMI 3. Intersitial lung disease 4. Acute respiratory failure, hypoxemic 5. CKD stage 3 6. History of DVT 7. Spinal stenosis 8. GERD 9. Hypothyroidism Hospital Course: Ms. Burger was admitted with trouble breathing. She had a VQ scan low probability for PE. She was given lasix for a CHF exacerbation and improved. She was initially requiring oxygen, but at discharge did not. She was discharged with lasix. She had ECHO with EF 25-30%. She is on beta-santhosh, no SUSHMA/ARB due to renal function for now. She will be discharged back to her facility, low salt diet. She should have her BMP checked within a few days to make sure no renal changes. Exam Vital Signs (past 8 hours): - 02/22/23 04:30 02/22/23 08:00 02/22/23 08:40 Temperature 97.9 F 97.9 F Pulse Rate 76 85 Respiratory Rate 18 18 Blood Pressure 128/72 146/70 H 146/70 H Pulse Oximetry 95 96 Oxygen Flow Rate 0 Oxygen Delivery Method Room Air Oxygen Flow Rate 0 Narrative Exam Narrative: GEN: no acute distress CV: regular rate and rhythm PULM: clear bilaterally ABD: soft, nontender EXT: warm and well perfused, no edema Objective Labs 02/22/23 05:17 02/22/23 05:17 Labs: Laboratory Results - last 24 hr 02/21/23 02/22/23 11:45 05:17 WBC 11.0 12.9 H RBC 4.24 4.07 Hgb 13.0 12.5 Hct 40.1 38.3 MCV 94.4 94.0 MCH 30.7 30.8 MCHC 32.5 32.8 RDW 18.0 H 18.0 H Plt Count 117 L 126 L Neut % (Auto) Not Reportable Not Reportable Lymph % (Auto) Not Reportable Not Reportable [place] % (Auto) Not Reportable Not Reportable Eos % (Auto) Not Reportable Not Reportable Baso % (Auto) Not Reportable Not Reportable Lymph # (Auto) Not Reportable Not Reportable [place] # (Auto) Not Reportable Not Reportable Baso # (Auto) Not Reportable Not Reportable Total Counted 100 100 Seg Neutrophils % 71.0 H 57.0 Band Neutrophils % 3.0 Lymphocytes % (Manual) 21.0 L 29.0 Atypical Lymphs % 1.0 H Monocytes % (Manual) 2.0 9.0 Eosinophils % (Manual) 2.0 1.0 L Basophils % (Manual) 1.0 Metamyelocytes % 1.0 H Myelocytes % 1.0 H Promyelocytes % 1.0 H Neutrophils # (Manual) 8140 H 7353 H RBC Morphology See below See below Polychromasia 1+ H Anisocytosis 1+ H 1+ H Macrocytosis 1+ H Ovalocytes 1+ H Sodium 137 137 Potassium 4.0 3.6 Chloride 106 105 Carbon Dioxide 29 29 BUN 51 H 56 H Creatinine 1.48 H 1.77 H Estimated GFR 36 L 29 L BUN/Creatinine Ratio 34.5 H 31.6 H Glucose 173 H 105 Calcium 8.7 8.4 [facility] Medical History (Updated 02/21/23 @ 06:45 by Michele Roy MD) Hypothyroidism GERD (gastroesophageal reflux disease) Systolic CHF, chronic Mumps (~1951) Measles (~1951) Chicken pox (~1951) Hearing loss (~2011) History of kidney disease (~2002) Irritable bowel syndrome (~2012) Secondary hyperparathyroidism of renal origin Atypical migraine Chronic diarrhea Primary osteoarthritis involving multiple joints Venous (peripheral) insufficiency Interstitial lung disease Stage 3b chronic kidney disease (CKD) Chronic adrenal insufficiency History of DVT (deep vein thrombosis) Mixed hyperlipidemia Chronic kidney disease Hyperlipidemia Hypertension Bilateral lower extremity edema Chronic anticoagulation Surgical History History of left heart catheterization (LHC) Anesthesia History of back surgery (~2012) History of throat surgery (~1974) Family History Father Cancer History of heart disease Mother Hypertension Social History household members: spouse and children Smoking Status: Never smoker alcohol intake: current Discharge Plan Discharge Plan Patient Disposition: SNF Transfer to: [facility] Provider Discharge Comment: Ms. Burger was admitted with trouble breathing. She improved with lasix and was able to return to her facility. Discharge orders & Medications Prescriptions: New furosemide [Lasix] 20 mg tablet 20 mg PO DAILY Qty: 30 0RF Continued pantoprazole 40 mg tablet,delayed release (DR/EC) 40 mg PO BID Qty: 180 3RF Rx Instructions: Dose change from 40 mg qd to 40 mg bid. Please d/c previous script that was sent today. Thanks! potassium chloride 20 mEq tablet,ER particles/crystals 20 meq PO DAILY carvedilol 3.125 mg tablet 3.125 mg PO BID cholecalciferol (vitamin D3) [Vitamin D3] 125 mcg (5,000 unit) tablet 5,000 unit PO DAILY Eliquis 2.5 mg tablet 2.5 mg PO BID lidocaine 4 % adhesive patch,medicated 1 patch topical DAILY PRN (Reason: Pain (Scale Score 4-6)) Rx Instructions: to lower back citalopram 10 mg tablet 10 mg PO DAILY prednisone 5 mg tablet 16 mg PO DAILY Rx Instructions: pt to take 16mg daily 02/17-02/23 than take 15mg starting 02/24. levothyroxine 100 mcg tablet 100 mcg PO DAILY Jardiance 25 mg tablet 12.5 mg PO DAILY ondansetron HCl 4 mg tablet 4 mg PO Q4H PRN (Reason: Nausea) acetaminophen 500 mg Tablet 1,000 mg PO Q6H PRN (Reason: Pain (Scale Score 1-3)) nitroglycerin 0.3 mg Tablet, Sublingual 0.3 mg sublingual DAILY MDD 0.3mg PRN (Reason: Chest Pain) nystatin 100,000 unit/gram Ointment 1 applic TOPICAL BEDTIME Rx Instructions: apply to vaginal area at bedtime x14 days. due to stop 03/03/23 magnesium hydroxide [Milk of Magnesia] 400 mg/5 mL Suspension 30 ml PO DAILY PRN (Reason: Constipation) amiodarone 200 mg tablet 200 mg PO DAILY oxycodone-acetaminophen 5-325 mg tablet 0.5 tab PO DAILY Qty: 3 0RF Rx Instructions: give a half hour before PT/OT polyethylene glycol 3350 17 gram powder in packet 17 gram PO DAILY PRN (Reason: Constipation) Discontinued oxycodone-acetaminophen 5-325 mg tablet 0.5 tab PO BEDTIME PRN (Reason: Pain (Scale Score 4-6)) fosfomycin tromethamine 3 gram packet 3 g PO USEASDIRECTD Rx Instructions: give 3 grams in the evening every 10 days for UTI prophylaxis until 03/02/23 Follow up/Referrals: Jamir Garcia MD [Primary Care Provider] - Diet/Activity/Treatments Diet: Low-sodium Visit Report/Discharge Packet Stand Alone Forms: Patient Portal/API Discharge Data Primary Care Provider: Jamir Garcia V
--- NOTE | 2023-02-22 11:21 | PC.NURSE ---
Pt out via w/c by [employer] personnel with all belongings
--- NOTE | 2023-02-22 12:07 | CM.DPC ---
DCP Continued GRAPHIC DESIGN SPECIALIST reviewed chart. able to accept patient back today at 1100. GRAPHIC DESIGN SPECIALIST updated RN/meteorologist in charge. September requested new PASRR from this author due to patient's previous diagnosis of depression from November. Depression not on current diagnosis in current stay, but confirmed on previous stays diagnoses. GRAPHIC DESIGN SPECIALIST completed updated PASRR and placed it with d/c information packet with transport from . GRAPHIC DESIGN SPECIALIST updated patient, agreeable to plan. Plan: patient to d/c to today at 1100, transport with facility. CM team will continue to follow as needed. NHAN Goncalves
== END 2023-02-22 11:23 | DRG 280 ==
LOC: ED 18:09 → AC 02-21 07:09
PROVIDERS: Admitting Provider Student in an Organized Health Care Education/Training Program; Emergency Provider Emergency Medicine; PCP Internal Medicine; Visit Provider Student in an Organized Health Care Education/Training Program
DX: I13.0 Hypertensive heart and chronic kidney disease with heart failure and stage 1 through stage 4 chronic kidney disease, or unspecified chronic kidney disease (principal); I50.23 Acute on chronic systolic (congestive) heart failure; I21.4 Non-ST elevation (NSTEMI) myocardial infarction; J96.01 Acute respiratory failure with hypoxia; J84.10 Pulmonary fibrosis, unspecified; N18.32 Chronic kidney disease, stage 3b; M48.061 Spinal stenosis, lumbar region without neurogenic claudication; K21.9 Gastro-esophageal reflux disease without esophagitis; E03.9 Hypothyroidism, unspecified; Z79.01 Long term (current) use of anticoagulants; Z95.0 Presence of cardiac pacemaker; Z86.718 Personal history of other venous thrombosis and embolism; Z79.52 Long term (current) use of systemic steroids
CPT/HCPCS: 36415; 71045; 78582; 80048; 80053; 82550; 83690; 83735; 83880; 84484; 85007; 85025; 85610; 85730; 87633; 93005; 93010; 93306; 96374; 99285; A9539; A9540; J1940

== ENCOUNTER → 2023-03-01 15:02 | Outpatient (CLI) | payer MEDICARE, OTHER, SELFPAY ==
[2023-02-20 19:17] VITALS: BMI 26.8
[2023-03-01 17:11] LABS: Hematocrit 38.8 % (36-46); Hemoglobin 12.5 g/dL (12.0-16.0); Mean Corpuscular HGB Conc 32.1 % (30-36); Mean Corpuscular Hemoglobin 30.5 PG (26-34); Mean Corpuscular Volume 94.9 fL (80-100); Platelet Count 168 X10^3/uL (150-400); Red Blood Cell Count 4.08 X10^6/uL (4.0-5.2); White Blood Cell Count 12.8 X10^3/uL (4.5-11.0)
[2023-03-01 17:16] LABS: Add Manual Diff / Slide Review YES
[2023-03-01 17:21] LABS: Alanine Aminotransferase 26 IU/L (<35); Albumin 3.2 g/dL (3.5-5.0); Albumin Globulin Ratio 1.3 (1.0-2.8); Alkaline Phosphatase 121 U/L (38-126); Aspartate Aminotransferase 29 IU/L (14-36); BUN Creatinine Ratio 31.7 (6-22); Bilirubin Total 0.5 mg/dL (0.2-1.3); Blood Urea Nitrogen 63 mg/dL (7-17); Calcium 9.1 mg/dL (8.4-10.2); Carbon Dioxide 30 mmol/L (22-32); Chloride 103 mmol/L (98-107); Estimated Glomerular Filt Rate 25 mL/min (>60); Globulin 2.5 g/dL (1.7-4.1); Glucose 127 mg/dL (80-110); HEMOLYSIS < 15 (0-50); Sodium 139 mmol/L (137-145); Total Protein 5.7 g/dL (6.3-8.2)
[2023-03-01 17:27] LABS: NT-proBNP (BNP-Adult 18+) 15100 pg/mL (<450); Troponin I 0.101 ng/mL (0.01-0.034)
[2023-03-01 17:29] LABS: Potassium 5.7 mmol/L (3.4-5.1)
[2023-03-01 18:43] LABS: Anisocytosis 1+; Macrocytosis 1+; Neutrophils Absolute Manual 9088 /uL (3000-5900); Nucleated Red Blood Cells 1 #/Diff; Ovalocytes 1+; Total Cells Counted 100
== END ==
PROVIDERS: PCP Internal Medicine; Referring Provider Internal Medicine; Visit Provider Internal Medicine
DX: I50.23 Acute on chronic systolic (congestive) heart failure (principal); N18.4 Chronic kidney disease, stage 4 (severe); E27.40 Unspecified adrenocortical insufficiency
CPT/HCPCS: 36415; 80053; 83880; 84484; 85007; 85025

== ENCOUNTER → 2023-03-21 11:52 | Outpatient (ROUT) | payer OTHER, MEDICARE, SELFPAY ==
[2023-02-20 19:17] VITALS: BMI 26.8
[2023-03-21 12:05] LABS: BUN Creatinine Ratio 33.8 (6-22); Blood Urea Nitrogen 53 mg/dL (7-17); Calcium 9.2 mg/dL (8.4-10.2); Carbon Dioxide 27 mmol/L (22-32); Chloride 107 mmol/L (98-107); Estimated Glomerular Filt Rate 34 mL/min (>60); Glucose 141 mg/dL (80-110); HEMOLYSIS < 15 (0-50); Potassium 5.1 mmol/L (3.4-5.1); Sodium 140 mmol/L (137-145)
== END ==
PROVIDERS: PCP Internal Medicine; Visit Provider Family Medicine
DX: I50.23 Acute on chronic systolic (congestive) heart failure (principal)
CPT/HCPCS: 80048

== ENCOUNTER → 2023-04-09 19:04 | Outpatient (ROUT) | payer OTHER, MEDICARE, SELFPAY ==
[2023-02-20 19:17] VITALS: BMI 26.8
[2023-04-09 19:19] LABS: Bilirubin Urine UA NEGATIVE (NEGATIVE); Color Urine UA YELLOW; Glucose Urine UA NEGATIVE (Negative); Ketones Urine UA NEGATIVE (NEGATIVE); Leukocyte Esterase Urine UA 3+ (NEGATIVE); Nitrite Urine UA NEGATIVE (Negative); Occult Blood Urine UA 2+ (Negative); Protein Urine UA 2+ (Negative); pH Urine UA 8.5 (4.5-8.0)
[2023-04-09 19:20] LABS: Appearance Urine UA CLOUDY; Bacteria Urine Many (>30); RBC Urine 1-5/HPF (0-5/HPF); WBC Urine >100/HPF (0-5/HPF)
[2023-04-09 19:21] LABS: Squamous Epithelial Cell Urine 0-1 /HPF (0-5/HPF); Triple Phosphate Crystal Urine Occasional
[2023-04-09 19:22] LABS: Culture Indicated Urine Cult Not Indicated
[2023-04-09 19:27] LABS: Hematocrit 39.3 % (36-46); Hemoglobin 12.4 g/dL (12.0-16.0); Mean Corpuscular HGB Conc 31.5 % (30-36); Mean Corpuscular Hemoglobin 28.6 PG (26-34); Mean Corpuscular Volume 90.9 fL (80-100); Platelet Count 59 X10^3/uL (150-400); Red Blood Cell Count 4.33 X10^6/uL (4.0-5.2); Red Cell Distribution Width 18.5 % (11.6-14.8); White Blood Cell Count 22.8 X10^3/uL (4.5-11.0)
[2023-04-09 19:37] LABS: Add Manual Diff / Slide Review YES
[2023-04-09 20:51] LABS: Neutrophils Absolute Manual 20292 /uL (3000-5900); Total Cells Counted 100
== END ==
PROVIDERS: PCP Internal Medicine; Visit Provider Family Medicine
DX: I50.23 Acute on chronic systolic (congestive) heart failure (principal)
CPT/HCPCS: 81001; 85007; 85025; 87077; 87086; 87186; 93010

== ENCOUNTER 2023-04-09 22:00 | Inpatient (IN) | payer MEDICARE, OTHER, SELFPAY ==
[2023-02-20 19:17] VITALS: BMI 26.8
[2023-04-09 21:49] VITALS: PULSE 85; RESP 23; O2SAT 95
[2023-04-09 21:52] VITALS: BP 137/84; PULSE 98; RESP 14; TEMP 36.5; O2SAT 95; BMI 27.6
--- NOTE | 2023-04-09 21:58 | ED_ITS ---
HPI - General Adult General Chief complaint: Weakness Stated complaint: fever Time Seen by Provider: 04/09/23 22:00 History of Present Illness HPI narrative: 77-year-old woman with multiple medical problems include heart failure with ejection fraction estimated in the 20-25% range with pacemaker in place, pulmonary fibrosis, urinary tract infection and non STEMI that led to hospitalization and eventually correction placement. Additional chronic issues include stage 3 kidney disease, reflux, hypothyroidism, recent hospice and that was rescinded this evening. After her correction facility stay she was discharged to home and over the last month she has had progressive weakness. In the last 24 hours she has been increasingly lethargic, profoundly weak, increasingly confused, showing postural hypotension and with blood work that was done prior to arrival was noted have a white count at 20,000. She was given 40 mg of oral steroid today thinking that her pulmonary fibrosis may be contributing to some of her weakness. No fevers, cough, obvious dysuria reported. She is incontinent of urine. Majority of history is from her daughter who is a nurse practitioner, her primary care physician who called prior to arrival to update me and the hospice physician who has called to confirm that hospice was revoked prior to ambulance transfer to the emergency department Related Data Home Medications Medication Instructions Recorded Confirmed polyethylene glycol 3350 17 gram 17 gram PO DAILY PRN Constipation 10/09/17 04/09/23 oral powder packet citalopram 10 mg tablet 10 mg PO DAILY 09/12/22 04/09/23 levothyroxine 100 mcg tablet 100 mcg PO DAILY 09/12/22 04/09/23 prednisone 5 mg tablet 15 mg PO DAILY 09/12/22 04/09/23 ondansetron HCl 4 mg tablet 4 mg PO Q4H PRN Nausea 09/14/22 04/09/23 apixaban 2.5 mg tablet (Eliquis) 2.5 mg PO BID 10/28/22 04/09/23 amiodarone 200 mg tablet 200 mg PO DAILY 02/20/23 04/09/23 nitroglycerin 0.3 mg sublingual 0.3 mg sublingual DAILY PRN Chest 02/20/23 04/09/23 tablet Pain furosemide 20 mg tablet (Lasix) 20 mg PO DAILY PRN Shortness Of 04/09/23 04/09/23 Breath oxycodone-acetaminophen 5 mg-325 0.5 tab PO Q6HR PRN Pain (Scale 04/09/23 04/09/23 mg tablet Score 4-6) Previous Rx's Medication Instructions Recorded pantoprazole 40 mg tablet,delayed 40 mg PO BID #180 tabs 11/09/22 release Allergies Allergy/AdvReac Type Severity Reaction Status Date / Time oxybutynin Allergy Severe tongue Verified 02/20/23 11:00 swells Sulfa (Sulfonamide Allergy Severe fever and Verified 02/20/23 11:00 Antibiotics) rash [SULFA (SULFONAMIDE ANTIBIOTICS)] sertraline Allergy Intermediate Diarrhea Verified 02/20/23 11:00 NSAIDS (Non-Steroidal Allergy Unknown Verified 02/20/23 11:00 Anti-Inflamma [NSAIDS (NON-STEROIDAL ANTI-INFLAMMA] cephalexin Allergy rash Verified 02/20/23 11:00 amoxicillin [AMOXICILLIN] AdvReac Severe rash and Verified 02/20/23 11:00 diarrhea codeine [CODEINE] AdvReac Mild headache Verified 02/20/23 11:00 duloxetine [From CYMBALTA] AdvReac Mild vomiting Verified 02/20/23 11:00 morphine [MORPHINE] AdvReac Mild vomiting Verified 02/20/23 11:00 nitrofurantoin AdvReac Mild vomiting Verified 02/20/23 11:00 [From MACROBID] carisoprodol AdvReac Verified 02/20/23 11:00 piroxicam [From Feldene] AdvReac Verified 02/20/23 11:00 tolterodine AdvReac Verified 02/20/23 11:00 Review of Systems Review of Systems Narrative: Pertinent positive and negative findings as per HPI Patient History Medical History (Updated 04/10/23 @ 00:23 by Tereza Pablo MD) Hypothyroidism GERD (gastroesophageal reflux disease) Systolic CHF, chronic Mumps (~1951) Measles (~1951) Chicken pox (~1951) Hearing loss (~2011) History of kidney disease (~2002) Irritable bowel syndrome (~2012) Secondary hyperparathyroidism of renal origin Atypical migraine Chronic diarrhea Primary osteoarthritis involving multiple joints Venous (peripheral) insufficiency Interstitial lung disease Stage 3b chronic kidney disease (CKD) Chronic adrenal insufficiency History of DVT (deep vein thrombosis) Mixed hyperlipidemia Chronic kidney disease Hyperlipidemia Hypertension Bilateral lower extremity edema Chronic anticoagulation Surgical History History of left heart catheterization (LHC) Anesthesia History of back surgery (~2012) History of throat surgery (~1974) Family History Father Cancer History of heart disease Mother Hypertension Social History household members: spouse and children Smoking Status: Never smoker alcohol intake: current Smoking Status: Never smoker alcohol intake frequency: holidays/special occasions only Substance Use Type: does not use Exam Initial Vital Signs Initial Vital Signs: Vital Signs Pulse Rate 85 04/09/23 21:49 Respiratory Rate 23 04/09/23 21:49 Pulse Oximetry 95 04/09/23 21:49 General: Chronically ill-appearing, frail globally weak but in no acute distress. HEENT: Moist mucous membranes, normal sclera with reactive pupils, Neck: No JVD, supple Respiratory: Lungs are clear to auscultation, no wheezing no rales no rhonchi. Full and symmetrical air movement Cardiac: Regular rate and rhythm no murmurs no bruits Abdomen: Soft, mild suprapubic tenderness without rebound or guarding good bowel tones, no flank pain Skin: Frail, thin, bruises in multiple stages of healing, she is some superficial ulcers with appropriate wound care dressings over them over both lower extremities. None appear to be acutely infected Neurologic: Globally weak but moving all extremities Extremities: 2+ chronic lower extremity edema with chronic venous stasis changes Psych: Cooperative, appropriate insight and affect Course Orders Ordered: ED Orders 04/09/23 21:55 Complete Blood Count AUTO DIFF Stat Comprehensive Metabolic Panel Stat Lactate (Lactic Acid) Stat Troponin I Stat 04/09/23 21:59 Urinalysis and Microscopic Stat 04/09/23 22:20 Blood Culture Stat 04/09/23 23:55 Urine Culture Stat 04/10/23 00:15 BNP [NT-proBNP (BNP-Adult 18+)] Stat Respiratory Panel (Film Array) Stat Trop I [Troponin I] Stat Discontinued Medications Sodium Chloride (Normal Saline 0.9%) 1,000 mls @ 1,000 mls/hr IV BOLUS ONE Stop: 04/09/23 22:57 Last Infusion: 04/09/23 23:19 Dose: Infused Documented By: Admin: 04/09/23 22:11 Dose: 1,000 mls/hr Documented By: LEANDRO Levofloxacin (Levaquin) 750 mg in 150 mls @ 100 mls/hr IV NOW ONE Stop: 04/09/23 23:27 Last Infusion: 04/09/23 23:54 Dose: Infused Documented By: ЮЛИЯ Admin: 04/09/23 22:19 Dose: 100 mls/hr Documented By: VALENTE Ondansetron HCl (Ondansetron 4 Mg/2 Ml Inj) 4 mg IV NOW ONE Stop: 04/09/23 21:59 Last Admin: 04/09/23 22:11 Dose: 4 mg Documented By: LEANDRO Vital Signs Vital signs: Vital Signs - 8 hr 04/09/23 21:49 04/09/23 21:52 04/09/23 22:00 Temperature 97.7 F Pulse Rate 85 98 H 81 Respiratory Rate 23 14 20 Blood Pressure 137/84 Pulse Oximetry 95 95 92 Oxygen Delivery Method Room Air Room Air 04/09/23 22:00 04/09/23 23:00 04/09/23 23:01 Temperature Pulse Rate 101 H Respiratory Rate 37 H Blood Pressure 129/81 140/73 Pulse Oximetry 95 Oxygen Delivery Method 04/09/23 23:01 04/09/23 23:30 04/09/23 23:30 Temperature Pulse Rate 112 H 80 Respiratory Rate 30 H 25 H Blood Pressure 132/93 H Pulse Oximetry 94 96 Oxygen Delivery Method Room Air 04/10/23 00:00 04/10/23 00:00 04/10/23 00:30 Temperature Pulse Rate 81 128 H Respiratory Rate 22 22 Blood Pressure 136/73 Pulse Oximetry 95 95 Oxygen Delivery Method 04/10/23 00:30 04/10/23 01:00 04/10/23 01:00 Temperature Pulse Rate 76 Respiratory Rate 24 Blood Pressure 146/82 H 147/71 H Pulse Oximetry 94 Oxygen Delivery Method Room Air Medical Decision Making Lab Data 04/09/23 21:55 04/09/23 21:55 Labs: Lab Results 04/09/23 04/10/23 Range/Units 21:55 00:15 WBC 19.1 H (4.5-11.0) X10^3/uL RBC 4.18 (4.0-5.2) X10^6/uL Hgb 12.1 (12.0-16.0) g/dL Hct 37.8 (36-46) % MCV 90.5 (80-100) fL MCH 29.0 (26-34) PG MCHC 32.0 (30-36) % RDW 18.7 H (11.6-14.8) % Plt Count 61 L (150-400) X10^3/uL Neut % (Auto) Not Reportable Lymph % (Auto) Not Reportable [place] % (Auto) Not Reportable Eos % (Auto) Not Reportable Baso % (Auto) Not Reportable Lymph # (Auto) Not Reportable [place] # (Auto) Not Reportable Baso # (Auto) Not Reportable Total Counted 100 Seg Neutrophils % 91.0 H (38-70) % Band Neutrophils % 2.0 L (3-7) % Lymphocytes % (Manual) 4.0 L (25-45) % Monocytes % (Manual) 2.0 (2-11) % Metamyelocytes % 1.0 H (-0) % Neutrophils # (Manual) 43303 H (7140-5582) /uL Platelet Estimate Decreased on smear Plt Morphology Comment RBC Morphology See below Anisocytosis 1+ H Macrocytosis 1+ H Sodium 134 L (137-145) mmol/L Potassium 4.2 (3.4-5.1) mmol/L Chloride 99 (98-107) mmol/L Carbon Dioxide 29 (22-32) mmol/L BUN 58 H (7-17) mg/dL Creatinine 1.97 H (0.52-1.04) mg/dL Estimated GFR 26 L (>60) mL/min BUN/Creatinine Ratio 29.4 H (6-22) Glucose 160 H (80-110) mg/dL Lactate 1.3 (0.7-2.1) mmol/L Calcium 8.6 (8.4-10.2) mg/dL Total Bilirubin 0.8 (0.2-1.3) mg/dL AST 32 (14-36) IU/L ALT 29 (<35) IU/L Alkaline Phosphatase 117 (38-126) U/L Troponin I 0.148 H* 0.126 H* (0.01-0.034) ng/mL NT-Pro-B Natriuret Pep 21900 H (<450) pg/mL Total Protein 5.2 L (6.3-8.2) g/dL Albumin 2.7 L (3.5-5.0) g/dL Globulin 2.5 (1.7-4.1) g/dL Albumin/Globulin Ratio 1.1 (1.0-2.8) Chlamy pneumoniae PCR Not detected (Not Detect) Adenovirus (PCR) Not detected (Not Detect) B.parapertussis DNA PCR Not detected (Not Detecte) Coronavirus OC43 (PCR) Not detected (Not Detect) Coronavirus HKU1 (PCR) Not detected (Not Detect) Coronavirus 229E (PCR) Not detected (Not Detect) SARS-CoV-2 (PCR) Not detected (Not Detecte) Coronavirus NL63 (PCR) Not detected (Not Detect) Human Metapneumovir PCR Not detected (Not Detect) Influenza Type A (PCR) Not detected (Not Detect) Influenza Type B (PCR) Not detected (Not Detect) M. pneumoniae (PCR) Not detected (Not Detect) Parainfluenza 1 (PCR) Not detected (Not Detect) Parainfluenza 2 (PCR) Not detected (Not Detect) Parainfluenza 3 (PCR) Not detected (Not Detect) Parainfluenza 4 (PCR) Not detected (Not Detect) RSV (PCR) Not detected (Not Detect) Entero/Rhino (PCR) Not detected (Not Detect) MDM Narrative Medical decision making narrative: CC: Weakness Complicating co-morbidities: Was on hospice and this was rescinded this afternoon, increasing hospital admissions, congestive heart failure, recent urinary tract infection, Data collected from: patient, daughter who is a healthcare provider, primary care doctor and hospice doctor Social determinants of health that may influence the patients condition: Currently at home excellent support, hospice presented today Medical records reviewed: Hospitalization with discharge on February 22 is reviewed Differential considered: Progressive chronic disease, sepsis, recurrent urinary tract infection, recurrent NSTEMI Exam documented above, pertinent findings include: Chronically ill-appearing frail woman complaining of no pain but globally weak. She would some minor suprapubic tenderness, bilateral lower extremity edema with wound care dressings over some of her superficial ulcerations. No evidence of cellulitis involving the lower extremities Lab Test results independently reviewed as above. Pertinent findings: White count is notable at 19.1 earlier today had been at 22.8. H and H is reassuring. Platelet count is chronically low and stable at 61. Coagulation is notable for minimally elevated PT at 3:18 a.m. 0.5 and low PTT at 22 Chemistries are notable for a slight bump in creatinine from 1.57 on March 21 up to 1.97 today. Potassium is at 4.2 Troponin is elevated at 0.148 which was higher than previously at 0.101 for her hospitalization on February 20. Repeat troponin is trending down at 0.126 BNP is elevated at 46,400 with no significant clinical sequelae of congestive heart failure such as rales, JVD or increased to lower extremity edema Urine shows protein blood 3+ leukocytes greater than 100 white blood cells many bacteria, culture is ordered Urine sample from February 13 showed E coli and Proteus both are sensitive to ertapenem and Zosyn with multiple areas of resistance otherwise for both. As she is allergic to penicillin will go with ertapenem for the time being Independently reviewed EKG: EKG shows a paced rhythm at 93 Consultations: Discussion with her primary care provider prior to arrival. Goals of care include rehydration, hospitalization for her weakness treatment of treatable causes such as urinary tract infection. If NSTEMI is suspected heparin and follow up echocardiogram would be appropriate but she would not want to be transferred for heart catheterization. She remains DNR DNI Treatments: Prior to having all information available she was started on levofloxacin based on allergy profile. Unfortunately both the E coli and Proteus that are noted from urine sample on February 13 are resistant to this. Will change this to ertapenem. Re-evaluations: Patient is overall globally weak. She has no other specific complaints and aside from global weakness her exam is relatively benign. Discussion: 77-year-old woman with multiple chronic problems increasing hospitalizations recently admitted for urinary tract infection with NSTEMI was in the correction facility for awhile has been home for a month progressively worsening. She had been on hospice which was rescinded today. They wanted to return to the hospital for further evaluation but wanted compassionate medical management to include antibiotics fluids and heparin if required but no pressors, no cardiac interventions and otherwise DNR DNI. Patient does look like she has a bladder infection, this will be cultured. Based on Proteus and E coli growing out from mid February she is on ertapenem. We will repeat troponin and if it is increasing will start her on heparin. She has not going to be an interventional candidate so if it is elevated this will be all medical management. Care is reviewed with Dr. Roy, patient will be admitted. Findings reviewed with her family as well. Discharge Plan Departure Patient Disposition: Home Clinical Impression: Acute UTI, Acute non-ST elevation myocardial infarction (NSTEMI), Weakness, Adult failure to thrive
[2023-04-09 22:00] VITALS: BP 129/81; PULSE 81; RESP 20; O2SAT 92
[2023-04-09] MEDS: ONDANSETRON 4 MG/2 ML INJ IV (22:11)
[2023-04-09] MEDS: SODIUM CHLORIDE 0.9% 1,000 ML 1000 ML IV (22:11)
[2023-04-09 22:12] LABS: Hematocrit 37.8 % (36-46); Hemoglobin 12.1 g/dL (12.0-16.0); Mean Corpuscular Volume 90.5 fL (80-100); Red Blood Cell Count 4.18 X10^6/uL (4.0-5.2); Red Cell Distribution Width 18.7 % (11.6-14.8); White Blood Cell Count 19.1 X10^3/uL (4.5-11.0)
[2023-04-09 22:13] LABS: Add Manual Diff / Slide Review YES; Platelet Count 61 X10^3/uL (150-400)
[2023-04-09 22:17] LABS: Lactate (Lactic Acid) 1.3 mmol/L (0.7-2.1)
[2023-04-09 22:18] LABS: Alanine Aminotransferase 29 IU/L (<35); Albumin 2.7 g/dL (3.5-5.0); Albumin Globulin Ratio 1.1 (1.0-2.8); Alkaline Phosphatase 117 U/L (38-126); Aspartate Aminotransferase 32 IU/L (14-36); BUN Creatinine Ratio 29.4 (6-22); Bilirubin Total 0.8 mg/dL (0.2-1.3); Blood Urea Nitrogen 58 mg/dL (7-17); Calcium 8.6 mg/dL (8.4-10.2); Carbon Dioxide 29 mmol/L (22-32); Chloride 99 mmol/L (98-107); Estimated Glomerular Filt Rate 26 mL/min (>60); Globulin 2.5 g/dL (1.7-4.1); Glucose 160 mg/dL (80-110); HEMOLYSIS < 15 (0-50); Potassium 4.2 mmol/L (3.4-5.1); Sodium 134 mmol/L (137-145); Total Protein 5.2 g/dL (6.3-8.2)
[2023-04-09] MEDS: levoFLOXacin 750 MG/150 ML PIGGYBACK 100 MG IV (22:19)
[2023-04-09 22:34] LABS: Troponin I 0.148 ng/mL (0.01-0.034)
[2023-04-09 22:41] LABS: Neutrophils Absolute Manual 17763 /uL (3000-5900); Total Cells Counted 100
[2023-04-09 22:42] LABS: Anisocytosis 1+; Macrocytosis 1+
[2023-04-09 22:43] LABS: Platelet Estimate Decreased on smear
[2023-04-09 23:00] VITALS: PULSE 101; RESP 37; O2SAT 95
[2023-04-09 23:01] VITALS: BP 140/73; PULSE 112; RESP 30; O2SAT 94
[2023-04-09 23:30] VITALS: BP 132/93; PULSE 80; RESP 25; O2SAT 96
[2023-04-10] VITALS (7 sets, daily range): BP systolic 106–147; BP diastolic 41–83; PULSE 64–128; RESP 17–24; TEMP 36–36.3; O2SAT 92–99; BMI 26.4
[2023-04-10 00:55] LABS: Troponin I 0.126 ng/mL (0.01-0.034)
[2023-04-10 00:58] LABS: NT-proBNP (BNP-Adult 18+) 46400 pg/mL (<450)
[2023-04-10 01:17] LABS: Adenovirus Not Detected (Not Detect); B. parapertussis Not Detected (Not Detecte); Bordetella pertussis Not Detected (Not Detect); Chlamydophila pneumoniae Not Detected (Not Detect); Coronavirus 229E Not Detected (Not Detect); Coronavirus HKU1 Not Detected (Not Detect); Coronavirus NL 63 Not Detected (Not Detect); Coronavirus OC43 Not Detected (Not Detect); Human Metapneumovirus Not Detected (Not Detect); Human Rhinovirus/Enterovirus Not Detected (Not Detect); Influenza A Not Detected (Not Detect); Influenza B Not Detected (Not Detect); Mycoplasma pneumoniae Not Detected (Not Detect); Parainfluenza Virus 1 Not Detected (Not Detect); Parainfluenza Virus 2 Not Detected (Not Detect); Parainfluenza Virus 3 Not Detected (Not Detect); Parainfluenza Virus 4 Not Detected (Not Detect); Respiratory Syncytial Virus Not Detected (Not Detect); SARS- CoV-2 Not Detected (Not Detecte)
--- NOTE | 2023-04-10 03:35 | P.HP_ITS ---
History of Present Illness History of Present Illness Date Patient Seen: 04/10/23 Chief complaint: fever Narrative: 77 y/o presented to ED with fever, increasingly lethargic, profoundly weak, increasingly confused, showing postural hypotension and evidence of UTI and JENNI. Her recent medical history is significant for heart failure with ejection fraction estimated in the 20-25% range with pacemaker in place, pulmonary fibrosis, urinary tract infection and non STEMI that led to hospitalization and eventually jail placement. Additional chronic issues include stage 3 kidney disease, reflux, hypothyroidism. She was discharged to SNF with hospice and then from SNF to home. Today she revoked hospice so that she can have treatment of infection with abx. COUNT INCLUDES THE [facility] Medical History (Updated 04/10/23 @ 06:52 by Michele Roy MD) Chronic hypoxemic respiratory failure Hypothyroidism GERD (gastroesophageal reflux disease) Systolic CHF, chronic Mumps (~1951) Measles (~1951) Chicken pox (~1951) Hearing loss (~2011) History of kidney disease (~2002) Irritable bowel syndrome (~2012) Secondary hyperparathyroidism of renal origin Atypical migraine Chronic diarrhea Primary osteoarthritis involving multiple joints Venous (peripheral) insufficiency Interstitial lung disease Stage 3b chronic kidney disease (CKD) Chronic adrenal insufficiency History of DVT (deep vein thrombosis) Mixed hyperlipidemia Chronic kidney disease Hyperlipidemia Hypertension Bilateral lower extremity edema Chronic anticoagulation Surgical History History of left heart catheterization (LHC) Anesthesia History of back surgery (~2012) History of throat surgery (~1974) Family History Father Cancer History of heart disease Mother Hypertension Social History household members: spouse and children Smoking Status: Never smoker alcohol intake: current Meds Home Medications and Allergies Home Medications Medication Instructions Recorded Confirmed Type polyethylene glycol 3350 17 gram 17 gram PO DAILY PRN Constipation 10/09/17 04/09/23 History oral powder packet citalopram 10 mg tablet 10 mg PO DAILY 09/12/22 04/09/23 History levothyroxine 100 mcg tablet 100 mcg PO DAILY 09/12/22 04/09/23 History prednisone 5 mg tablet 15 mg PO DAILY 09/12/22 04/09/23 History ondansetron HCl 4 mg tablet 4 mg PO Q4H PRN Nausea 09/14/22 04/09/23 History apixaban 2.5 mg tablet (Eliquis) 2.5 mg PO BID 10/28/22 04/09/23 History pantoprazole 40 mg tablet,delayed 40 mg PO BID #180 tabs 11/09/22 04/09/23 Rx release amiodarone 200 mg tablet 200 mg PO DAILY 02/20/23 04/09/23 History nitroglycerin 0.3 mg sublingual 0.3 mg sublingual DAILY PRN Chest 02/20/23 04/09/23 History tablet Pain furosemide 20 mg tablet (Lasix) 20 mg PO DAILY PRN Shortness Of 04/09/23 04/09/23 History Breath oxycodone-acetaminophen 5 mg-325 0.5 tab PO Q6HR PRN Pain (Scale 04/09/23 04/09/23 History mg tablet Score 4-6) Allergies Allergy/AdvReac Type Severity Reaction Status Date / Time oxybutynin Allergy Severe tongue Verified 02/20/23 11:00 swells Sulfa (Sulfonamide Allergy Severe fever and Verified 02/20/23 11:00 Antibiotics) rash [SULFA (SULFONAMIDE ANTIBIOTICS)] sertraline Allergy Intermediate Diarrhea Verified 02/20/23 11:00 NSAIDS (Non-Steroidal Allergy Unknown Verified 02/20/23 11:00 Anti-Inflamma [NSAIDS (NON-STEROIDAL ANTI-INFLAMMA] cephalexin Allergy rash Verified 02/20/23 11:00 amoxicillin [AMOXICILLIN] AdvReac Severe rash and Verified 02/20/23 11:00 diarrhea codeine [CODEINE] AdvReac Mild headache Verified 02/20/23 11:00 duloxetine [From CYMBALTA] AdvReac Mild vomiting Verified 02/20/23 11:00 morphine [MORPHINE] AdvReac Mild vomiting Verified 02/20/23 11:00 nitrofurantoin AdvReac Mild vomiting Verified 02/20/23 11:00 [From MACROBID] carisoprodol AdvReac Verified 02/20/23 11:00 piroxicam [From Feldene] AdvReac Verified 02/20/23 11:00 tolterodine AdvReac Verified 02/20/23 11:00 Review of Systems Review of Systems Narrative: poor historian Cardiovascular Comments: w/o chest pain Respiratory Comments: short of breath Genitourinary Comments: lower abdominal tenderness Exam Vital Signs (past 8 hours): - 04/09/23 21:49 04/09/23 21:52 04/09/23 22:00 Temperature 97.7 F Pulse Rate 85 98 H 81 Respiratory Rate 23 14 20 Blood Pressure 137/84 Pulse Oximetry 95 95 92 Oxygen Delivery Method Room Air Room Air 04/09/23 22:00 04/09/23 23:00 04/09/23 23:01 Temperature Pulse Rate 101 H Respiratory Rate 37 H Blood Pressure 129/81 140/73 Pulse Oximetry 95 Oxygen Delivery Method 04/09/23 23:01 04/09/23 23:30 04/09/23 23:30 Temperature Pulse Rate 112 H 80 Respiratory Rate 30 H 25 H Blood Pressure 132/93 H Pulse Oximetry 94 96 Oxygen Delivery Method Room Air 04/10/23 00:00 04/10/23 00:00 04/10/23 00:30 Temperature Pulse Rate 81 128 H Respiratory Rate 22 22 Blood Pressure 136/73 Pulse Oximetry 95 95 Oxygen Delivery Method 04/10/23 00:30 04/10/23 01:00 04/10/23 01:00 Temperature Pulse Rate 76 Respiratory Rate 24 Blood Pressure 146/82 H 147/71 H Pulse Oximetry 94 Oxygen Delivery Method Room Air 04/10/23 01:30 04/10/23 01:30 04/10/23 02:20 Temperature 97.3 F L Pulse Rate 74 75 Respiratory Rate 23 20 Blood Pressure 138/81 139/83 Pulse Oximetry 94 95 Oxygen Delivery Method Room Air Oxygen Delivery Method Room Air Const Other: laying in bed, in no distress HENMT Other: normocephalic Eyes Other: eomi Neck Other: supple Resp Other: porr respiratory effort, O2 NC Cardio Other: RRR, PPM, swollen legs GI Other: w/o distension Extrem Other: swollen, 2 + Psych Other: encephalopathic Objective Labs 04/10/23 04:58 04/10/23 04:58 Labs: Laboratory Results - last 24 hr 04/09/23 04/10/23 21:55 00:15 WBC 19.1 H RBC 4.18 Hgb 12.1 Hct 37.8 MCV 90.5 MCH 29.0 MCHC 32.0 RDW 18.7 H Plt Count 61 L Neut % (Auto) Not Reportable Lymph % (Auto) Not Reportable [place] % (Auto) Not Reportable Eos % (Auto) Not Reportable Baso % (Auto) Not Reportable Lymph # (Auto) Not Reportable [place] # (Auto) Not Reportable Baso # (Auto) Not Reportable Total Counted 100 Seg Neutrophils % 91.0 H Band Neutrophils % 2.0 L Lymphocytes % (Manual) 4.0 L Monocytes % (Manual) 2.0 Metamyelocytes % 1.0 H Neutrophils # (Manual) 70421 H Platelet Estimate Decreased on smear Plt Morphology Comment RBC Morphology See below Anisocytosis 1+ H Macrocytosis 1+ H Sodium 134 L Potassium 4.2 Chloride 99 Carbon Dioxide 29 BUN 58 H Creatinine 1.97 H Estimated GFR 26 L BUN/Creatinine Ratio 29.4 H Glucose 160 H Lactate 1.3 Calcium 8.6 Total Bilirubin 0.8 AST 32 ALT 29 Alkaline Phosphatase 117 Troponin I 0.148 H* 0.126 H* NT-Pro-B Natriuret Pep 89704 H Total Protein 5.2 L Albumin 2.7 L Globulin 2.5 Albumin/Globulin Ratio 1.1 Chlamy pneumoniae PCR Not detected Adenovirus (PCR) Not detected B.parapertussis DNA PCR Not detected Coronavirus OC43 (PCR) Not detected Coronavirus HKU1 (PCR) Not detected Coronavirus 229E (PCR) Not detected SARS-CoV-2 (PCR) Not detected Coronavirus NL63 (PCR) Not detected Human Metapneumovir PCR Not detected Influenza Type A (PCR) Not detected Influenza Type B (PCR) Not detected M. pneumoniae (PCR) Not detected Parainfluenza 1 (PCR) Not detected Parainfluenza 2 (PCR) Not detected Parainfluenza 3 (PCR) Not detected Parainfluenza 4 (PCR) Not detected RSV (PCR) Not detected Entero/Rhino (PCR) Not detected Assessment & Plan Assessment and plan (1) Acute UTI: Status: Acute Plan: - previous UTI with E Coli and Klebsiella - multiple abx allergies - cultures pending - empiric ertapenem, it would cover both organisms, adjust / deescalate (2) JENNI (acute kidney injury): Status: Acute Plan: CrCl down - avoidance of nephrotoxins - monitored BMP (3) Stage 3b chronic kidney disease (CKD): Status: Acute Plan: see above (4) Acute non-ST elevation myocardial infarction (NSTEMI): Status: Acute Plan: family not interested in agressive treatment patient revoked hospice to get treatment of UTI (5) Acute on chronic systolic (congestive) heart failure: Status: Acute (6) Interstitial lung disease: Status: Acute Plan: on oxygen (7) GERD (gastroesophageal reflux disease): Status: Acute (8) Chronic hypoxemic respiratory failure: Status: Acute Plan: ILD, CHF Quality VTE Deep Vein Thrombosis/Pulmonary Embolism Present on Admission: No
[2023-04-10] MEDS: ERTAPENEM 1 GM in SODIUM CHLORIDE 0.9% 100 ML IV (04:33)
[2023-04-10 05:24] LABS: Add Manual Diff / Slide Review NO; Basophils Absolute Auto 0 /uL (0-100); Basophils Percent Auto 0.1 % (0-2); Eosinophils Absolute Auto 0 /uL (0-450); Eosinophils Percent Auto 0.1 % (2-4); Hematocrit 34.4 % (36-46); Hemoglobin 11.1 g/dL (12.0-16.0); Lymphocytes Absolute Auto 1600 /uL (1100-4500); Lymphocytes Percent Auto 10.6 % (25-40); Mean Corpuscular HGB Conc 32.4 % (30-36); Mean Corpuscular Hemoglobin 29.4 PG (26-34); Mean Corpuscular Volume 90.7 fL (80-100); Monocytes Absolute Auto 800 /uL (0-900); Monocytes Percent Auto 5.4 % (3-14); Neutrophils Absolute Auto 12500 /uL (1500-7000); Neutrophils Percent Auto 83.8 % (50-75); Platelet Count 56 X10^3/uL (150-400); Red Blood Cell Count 3.79 X10^6/uL (4.0-5.2); Red Cell Distribution Width 18.2 % (11.6-14.8)
[2023-04-10 05:45] LABS: BUN Creatinine Ratio 29.4 (6-22); Blood Urea Nitrogen 53 mg/dL (7-17); Calcium 8.1 mg/dL (8.4-10.2); Carbon Dioxide 32 mmol/L (22-32); Chloride 101 mmol/L (98-107); Estimated Glomerular Filt Rate 28 mL/min (>60); Glucose 78 mg/dL (80-110); HEMOLYSIS < 15 (0-50); Potassium 3.8 mmol/L (3.4-5.1); Sodium 136 mmol/L (137-145)
[2023-04-10 08:59] LABS: Magnesium 2.3 mg/dL (1.6-2.3)
[2023-04-10] MEDS: ACETAMINOPHEN 325 MG TABLET 650 MG PO ×2 (09:41→20:12)
[2023-04-10] MEDS: AMIODARONE 200 MG TABLET PO (09:42)
[2023-04-10] MEDS: CITALOPRAM 10 MG TABLET PO (09:42)
[2023-04-10] MEDS: APIXABAN 5 MG TABLET 2.5 MG PO ×2 (09:42→20:12)
[2023-04-10] MEDS: predniSONE 5 MG TABLET 15 MG PO (09:42)
[2023-04-10] MEDS: LEVOTHYROXINE 100 MCG TABLET PO (09:44)
[2023-04-10] MEDS: OXYCODONE/ACETAMINOPHEN 5/325 TABLET 1 TAB PO ×2 (11:19→18:37)
[2023-04-10] MEDS: predniSONE 20 MG TABLET PO (11:19)
[2023-04-10] MEDS: MEROPENEM 2 GM in SODIUM CHLORIDE 0.9% 100 ML IV (11:46)
[2023-04-10 12:24] LABS: Acinetobacter calcoa-baumannii Not Detected (Not Detect); Bacteroides fragilis Not Detected (Not Detect); CTX-M Resistance Detected (Not Detect); Candida albicans Not Detected (Not Detect); Candida auris Not Detected (Not Detect); Candida glabrata Not Detected (Not Detect); Candida krusei Not Detected (Not Detect); Candida parapsilosis Not Detected (Not Detect); Candida tropicalis Not Detected (Not Detect); Cryptococcus neoformans/gatti Not Detected (Not Detect); Enterobacter cloacae complex Not Detected (Not Detect); Enterobacterales Detected (Not Detect); Enterococcus faecalis Not Detected (Not Detect); Enterococcus faecium Not Detected (Not Detect); Haemophilus influenzae Not Detected (Not Detect); IMP Resistance Not Detected (Not Detect); KPC Resistance Not Detected (Not Detect); Klebsiella aerogenes Not Detected (Not Detect); Listeria monocytogenes Not Detected (Not Detect); NDM Resistance Not Detected (Not Detect); Neisseria meningitidis Not Detected (Not Detect); OXA-48-like Resistance Not Detected (Not Detect); Proteus species Not Detected (Not Detect); Pseudomonas aeruginosa Not Detected (Not Detect); Salmonella species Not Detected (Not Detect); Serratia marcescens Not Detected (Not Detect); Staphylococcus epidermidis Not Detected (Not Detect); Staphylococcus lugdunensis Not Detected (Not Detect); Staphylococcus species Not Detected (Not Detect); Stenotrophomonas maltophilia Not Detected (Not Detect); Streptococcus agalactiae (Gr B Not Detected (Not Detect); Streptococcus pneumonia Not Detected (Not Detect); Streptococcus pyogenes (Gr A) Not Detected (Not Detect); Streptococcus species Not Detected (Not Detect); VIM Resistance Not Detected (Not Detect); mcr-1 Resistance Not Detected (Not Detect)
--- NOTE | 2023-04-10 15:14 | CM.DANOTE ---
DCP Assessment Note Pt is a 77yo F here for infection in her blood, on IV Meropenem Q12H at this time. PCP Dr[facility] Lawrence [facility] B[facility] ANALYST reviewed EMR. Per chart review, was home with hospice support prior to admission. Cancelled hospice in order to get treatment. Per provider, pt has bloodstream infection that only treated with IV abx. unsure at this time how long she'll need to be on abx. BOND ANALYST spoke with intake at [facility]. would need entirely new referral. NICO Cristina kindly agreed to fax referral information. They have multiple openings from Mon through Monday to restart care. BOND ANALYST spoke with intake at . would agree to review if needed. PASSR needed. BOND ANALYST spoke with pt and Dtr (Shivani ireland [phone]). Dtr reports they are all set up at home with CGs and hospice. Dtr reports that if need antibiotics, will consider home infusion vs SNF at pending cost. Dtr curious as to when SNF benefit for Medicare would restart for 100 days of SNF. BOND ANALYST spoke with Thomas at [facility] to inquire about potential cost. Did not send official referral at this time due to pending abx plan. Thomas agreed to review and will let us know in morning rough cost estimate. Plan: pending abx plan/when benefits restart for Medicare SNF. CM team will continue to follow closely. NHAN Goncalves Discharge Planning/Care Management CM Discharge Assessment Start: 04/10/23 15:11 Freq: Status: Active Protocol: Document 04/10/23 15:12 (Rec: 04/10/23 15:14 [id number]) Discharge Planning Assessment Assigned Landcare Facilitator NHAN Faith DPOA/Assigned Designee Name Bill (spouse) Contact Information [phone] Advance Directives? Yes: POLST Advance Directives on File Yes History Provided By Patient,Family Member,Medical Record Prior Living Arrangements House Comment home with [facility] and [facility] CGs. canceled hospice in order to get treatment. Household Members spouse,children,caregiver Type of transporation used prior to Relies on Others admit Independent with ADL's No Is patient alert and oriented? No Needs Assistance With Bathing,Eating,Grooming,Meal Prep,Toileting,Managing Medications,Home Chores / Shopping Comment FWW, wheelchair Comment patient may need antibiotics at dc. either SNF vs Home infusion pending cost. Discharge Plan [facility] Facility Transportation Arrangement Likely facility transportation Referrals Initiated Other Additional Comment Patient may potentially need home IV infusion, will follow closely. SNF/HH Preference [facility] is SNF preference Has Agency SNF been contacted Yes Comment willing to review Whiteboard Updated in Patient Room with Yes name and ext. # of Landcare Facilitator Review Status In Process Next Review Type Continued Stay Review
[2023-04-10] MEDS: SODIUM CHLORIDE 0.9% 1,000 ML 75 ML IV (18:37)
--- NOTE | 2023-04-10 18:45 | PM.HP.1 ---
History of Present Illness History of Present Illness Date Patient Seen: 04/10/23 Chief complaint: fever Narrative: From overnight provider: 77 y/o presented to ED with fever, increasingly lethargic, profoundly weak, increasingly confused, showing postural hypotension and evidence of UTI and JENNI. Her recent medical history is significant for heart failure with ejection fraction estimated in the 20-25% range with pacemaker in place, pulmonary fibrosis, urinary tract infection and non STEMI that led to hospitalization and eventually assisted placement. Additional chronic issues include stage 3 kidney disease, reflux, hypothyroidism. She was discharged to SNF with hospice and then from SNF to home. Today she revoked hospice so that she can have treatment of infection with abx. [facility] Medical History (Updated 04/10/23 @ 18:48 by Don Flores DO) Chronic hypoxemic respiratory failure Hypothyroidism GERD (gastroesophageal reflux disease) Systolic CHF, chronic Mumps (~1951) Measles (~1951) Chicken pox (~1951) Hearing loss (~2011) History of kidney disease (~2002) Irritable bowel syndrome (~2012) Secondary hyperparathyroidism of renal origin Atypical migraine Chronic diarrhea Primary osteoarthritis involving multiple joints Venous (peripheral) insufficiency Interstitial lung disease Stage 3b chronic kidney disease (CKD) Chronic adrenal insufficiency History of DVT (deep vein thrombosis) Mixed hyperlipidemia Chronic kidney disease Hyperlipidemia Hypertension Bilateral lower extremity edema Chronic anticoagulation Surgical History History of left heart catheterization (LHC) Anesthesia History of back surgery (~2012) History of throat surgery (~1974) Family History Father Cancer History of heart disease Mother Hypertension Social History household members: spouse, children and caregiver Smoking Status: Never smoker alcohol intake: current Meds Home Medications and Allergies Home Medications Medication Instructions Recorded Confirmed Type polyethylene glycol 3350 17 gram 17 gram PO DAILY PRN Constipation 10/09/17 04/09/23 History oral powder packet citalopram 10 mg tablet 10 mg PO DAILY 09/12/22 04/09/23 History levothyroxine 100 mcg tablet 100 mcg PO DAILY 09/12/22 04/09/23 History prednisone 5 mg tablet 15 mg PO DAILY 09/12/22 04/09/23 History ondansetron HCl 4 mg tablet 4 mg PO Q4H PRN Nausea 09/14/22 04/09/23 History apixaban 2.5 mg tablet (Eliquis) 2.5 mg PO BID 10/28/22 04/09/23 History pantoprazole 40 mg tablet,delayed 40 mg PO BID #180 tabs 11/09/22 04/09/23 Rx release amiodarone 200 mg tablet 200 mg PO DAILY 02/20/23 04/09/23 History nitroglycerin 0.3 mg sublingual 0.3 mg sublingual DAILY PRN Chest 02/20/23 04/09/23 History tablet Pain furosemide 20 mg tablet (Lasix) 20 mg PO DAILY PRN Shortness Of 04/09/23 04/09/23 History Breath oxycodone-acetaminophen 5 mg-325 0.5 tab PO Q6HR PRN Pain (Scale 04/09/23 04/09/23 History mg tablet Score 4-6) Allergies Allergy/AdvReac Type Severity Reaction Status Date / Time oxybutynin Allergy Severe tongue Verified 02/20/23 11:00 swells Sulfa (Sulfonamide Allergy Severe fever and Verified 02/20/23 11:00 Antibiotics) rash [SULFA (SULFONAMIDE ANTIBIOTICS)] sertraline Allergy Intermediate Diarrhea Verified 02/20/23 11:00 NSAIDS (Non-Steroidal Allergy Unknown Verified 02/20/23 11:00 Anti-Inflamma [NSAIDS (NON-STEROIDAL ANTI-INFLAMMA] cephalexin Allergy rash Verified 02/20/23 11:00 amoxicillin [AMOXICILLIN] AdvReac Severe rash and Verified 02/20/23 11:00 diarrhea codeine [CODEINE] AdvReac Mild headache Verified 02/20/23 11:00 duloxetine [From CYMBALTA] AdvReac Mild vomiting Verified 02/20/23 11:00 morphine [MORPHINE] AdvReac Mild vomiting Verified 02/20/23 11:00 nitrofurantoin AdvReac Mild vomiting Verified 02/20/23 11:00 [From MACROBID] carisoprodol AdvReac Verified 02/20/23 11:00 piroxicam [From Feldene] AdvReac Verified 02/20/23 11:00 tolterodine AdvReac Verified 02/20/23 11:00 Review of Systems Review of Systems Narrative: poor historian Cardiovascular Comments: w/o chest pain Respiratory Comments: short of breath Genitourinary Comments: lower abdominal tenderness Exam Vital Signs (past 8 hours): - 04/10/23 11:31 Temperature 97.2 F L Pulse Rate 64 Respiratory Rate 20 Blood Pressure 106/41 L Pulse Oximetry 92 Oxygen Flow Rate 0 Oxygen Delivery Method Room Air Oxygen Flow Rate 0 Const Other: laying in bed, in no distress HENMT Other: normocephalic Eyes Other: eomi Neck Other: supple Resp Other: porr respiratory effort, O2 NC Cardio Other: RRR, PPM, swollen legs GI Other: w/o distension Extrem Other: swollen, 2 + Psych Other: encephalopathic Objective Labs 04/10/23 04:58 04/10/23 04:58 Labs: Laboratory Results - last 24 hr 04/09/23 04/10/23 04/10/23 21:55 00:15 04:58 WBC 19.1 H 15.0 H RBC 4.18 3.79 L Hgb 12.1 11.1 L Hct 37.8 34.4 L MCV 90.5 90.7 MCH 29.0 29.4 MCHC 32.0 32.4 RDW 18.7 H 18.2 H Plt Count 61 L 56 L Neut % (Auto) Not Reportable 83.8 H Lymph % (Auto) Not Reportable 10.6 L [place] % (Auto) Not Reportable 5.4 Eos % (Auto) Not Reportable 0.1 L Baso % (Auto) Not Reportable 0.1 Neut # (Auto) 62329 H Lymph # (Auto) Not Reportable 1600 [place] # (Auto) Not Reportable 800 Eos # (Auto) 0 Baso # (Auto) Not Reportable 0 Total Counted 100 Seg Neutrophils % 91.0 H Band Neutrophils % 2.0 L Lymphocytes % (Manual) 4.0 L Monocytes % (Manual) 2.0 Metamyelocytes % 1.0 H Neutrophils # (Manual) 63626 H Platelet Estimate Decreased on smear Plt Morphology Comment RBC Morphology See below Anisocytosis 1+ H Macrocytosis 1+ H Sodium 134 L 136 L Potassium 4.2 3.8 Chloride 99 101 Carbon Dioxide 29 32 BUN 58 H 53 H Creatinine 1.97 H 1.80 H Estimated GFR 26 L 28 L BUN/Creatinine Ratio 29.4 H 29.4 H Glucose 160 H 78 L Lactate 1.3 Calcium 8.6 8.1 L Magnesium 2.3 Total Bilirubin 0.8 AST 32 ALT 29 Alkaline Phosphatase 117 Troponin I 0.148 H* 0.126 H* NT-Pro-B Natriuret Pep 18882 H Total Protein 5.2 L Albumin 2.7 L Globulin 2.5 Albumin/Globulin Ratio 1.1 A.calcoaceticus-baumannii cmplx PCR Not detected Chlamy pneumoniae PCR Not detected Adenovirus (PCR) Not detected Bacteroides fragilis Not detected B.parapertussis DNA PCR Not detected Itzel albicans (PCR) Not detected Itzel auris (PCR) Not detected C. glabrata (PCR) Not detected C. krusei (PCR) Not detected C. parapsilosis (PCR) Not detected C. tropicalis (PCR) Not detected Coronavirus OC43 (PCR) Not detected Coronavirus HKU1 (PCR) Not detected Coronavirus 229E (PCR) Not detected SARS-CoV-2 (PCR) Not detected Coronavirus NL63 (PCR) Not detected C. neoform/gattii (PCR) Not detected Enterobacterales (PCR) Detected E. cloacae complex PCR Not detected Enterococc faecalis PCR Not detected Enterococc faecium PCR Not detected E. coli (PCR) Detected H. influenzae (PCR) Not detected Human Metapneumovir PCR Not detected Influenza Type A (PCR) Not detected Influenza Type B (PCR) Not detected Klebsiella aerogenes (PCR) Not detected Klebsiella oxytoca PCR Not detected Klebsiella pneumoniae Not detected List. monocytogenes PCR Not detected M. pneumoniae (PCR) Not detected N. meningitidis (PCR) Not detected Parainfluenza 1 (PCR) Not detected Parainfluenza 2 (PCR) Not detected Parainfluenza 3 (PCR) Not detected Parainfluenza 4 (PCR) Not detected Proteus species (PCR) Not detected RSV (PCR) Not detected Entero/Rhino (PCR) Not detected Salmonella spp. (PCR) Not detected Serratia marcescens PCR Not detected Staphylococcus sp PCR Not detected Staph aureus (PCR) Not detected mecA/C & MREJ Resist Gene Not applicable mecA/C-Methicil Resis Gene Not applicable mcr-1 Colistin Res Gene PCR Not detected Staph epidermidis (PCR) Not detected Staph lugdunensis PCR Not detected S. maltophilia (PCR) Not detected Streptococcus sp PCR Not detected Group A Strep (PCR) Not detected Strep agalactiae (PCR) Not detected Strep pneumoniae (PCR) Not detected P. aeruginosa (PCR) Not detected Tj/B-Vanco Res Genes Not applicable blaIMP Car res Gene PCR Not detected KPC-Carbap Res Gene PCR Not detected blaNDM Car Res Gene PCR Not detected OXA-48 Carbapenem Resis Gene (PCR) Not detected blaVIM Car Res Gene PCR Not detected CTX-M Gene Resistance (PCR) Detected Assessment & Plan Assessment and plan (1) Gram-negative bacteremia: Status: Acute Plan: -blood cultures 4/4 positive for gram neg bacilli, likely E. coli -continue meropenem (2) Acute UTI: Problem details: pyelonephritis Status: Acute Plan: - previous UTI with E Coli and Klebsiella - multiple abx allergies - cultures pending - changed ertapenem to meropenem, as per PCP had confusion with ertapenem (3) JENNI (acute kidney injury): Status: Acute Plan: CrCl down - avoidance of nephrotoxins - monitored BMP (4) Stage 3b chronic kidney disease (CKD): Status: Acute Plan: see above (5) Acute non-ST elevation myocardial infarction (NSTEMI): Status: Acute Plan: family not interested in agressive treatment patient revoked hospice to get treatment of UTI (6) Acute on chronic systolic (congestive) heart failure: Status: Acute (7) Interstitial lung disease: Status: Acute Plan: on oxygen (8) GERD (gastroesophageal reflux disease): Status: Acute (9) Chronic hypoxemic respiratory failure: Status: Acute Plan: ILD, CHF Plan Dispo: Pending improvement in bacteremia and pyelo. May need IV abx for 2 weeks. Quality VTE Deep Vein Thrombosis/Pulmonary Embolism Present on Admission: No
--- NOTE | 2023-04-10 18:54 | PC.NURSE ---
Day shift: This RN changed dressings on BLE calf wounds. Notified MD Flores about slough and wound dressing changes. He ordered QDay dressing change. This RN cleaned with sterile NS, placed non-adherent dressing and wrapped with kerlex. Pt incontinent of urine and stool. 1 large liquid BM this AM. Pt states that at home she usually goes to the bathroom in her brief and then someone changes her. Notified MD Flores of low urine output this shift - less than 200mL in the last 12 hours. MD ordered 75mL/hr NS for the next 6 hours. Pain of BLEs adequately managed with PO Percocet. Will continue to monitor.
[2023-04-10] MEDS: PANTOPRAZOLE DR 40 MG TABLET PO (20:12)
[2023-04-10] MEDS: MEROPENEM 1 GM in SODIUM CHLORIDE 0.9% 100 ML IV (20:13)
[2023-04-11 04:00] VITALS: BP 142/67; PULSE 77; RESP 15; TEMP 35.9; O2SAT 96
[2023-04-11] MEDS: LEVOTHYROXINE 100 MCG TABLET PO (06:36)
[2023-04-11] MEDS: PANTOPRAZOLE DR 40 MG TABLET PO ×2 (06:36→22:28)
[2023-04-11 06:47] LABS: Hematocrit 33.6 % (36-46); Hemoglobin 11.1 g/dL (12.0-16.0); Mean Corpuscular HGB Conc 33.1 % (30-36); Mean Corpuscular Hemoglobin 30.2 PG (26-34); Mean Corpuscular Volume 91.4 fL (80-100); Platelet Count 63 X10^3/uL (150-400); Red Blood Cell Count 3.67 X10^6/uL (4.0-5.2); Red Cell Distribution Width 18.1 % (11.6-14.8); White Blood Cell Count 10.8 X10^3/uL (4.5-11.0)
[2023-04-11 06:56] LABS: Add Manual Diff / Slide Review YES
[2023-04-11 06:58] LABS: BUN Creatinine Ratio 31.7 (6-22); Blood Urea Nitrogen 53 mg/dL (7-17); Calcium 8.6 mg/dL (8.4-10.2); Carbon Dioxide 29 mmol/L (22-32); Chloride 104 mmol/L (98-107); Estimated Glomerular Filt Rate 31 mL/min (>60); Glucose 97 mg/dL (80-110); HEMOLYSIS < 15 (0-50); Potassium 3.8 mmol/L (3.4-5.1); Sodium 138 mmol/L (137-145)
[2023-04-11 07:26] LABS: Neutrophils Absolute Manual 8424 /uL (3000-5900); RBC Morphology Normal Morphology; Total Cells Counted 100
[2023-04-11] MEDS: predniSONE 5 MG TABLET 40 MG PO (09:32)
[2023-04-11] MEDS: APIXABAN 5 MG TABLET 2.5 MG PO ×2 (09:33→20:26)
[2023-04-11] MEDS: MEROPENEM 1 GM in SODIUM CHLORIDE 0.9% 100 ML IV ×2 (09:34→20:01)
[2023-04-11] MEDS: CITALOPRAM 10 MG TABLET PO (09:35)
[2023-04-11] MEDS: AMIODARONE 200 MG TABLET PO (09:35)
--- NOTE | 2023-04-11 10:04 | DI.ECHO.S_ITS ---
[facility]---------+ [facility] +---------+ : : [address] : : : : [id number] : : : : Phone: [phone] Echocardiogram Report + + :Name: MARCIAL BLISS Study Date: 04/11/2023 Height: 60 in : :[facility] ReadingLocation: Weight: 135 lb : : Gender: Female BSA: 1.6 m2 : :: 1945 Age: 77 yrs BP: 139/83 mmHg: :Reason For Study: Pacemaker : : Performed By: Reanna Ni : :Referring: ARTI WALKER A : + + Interpretation Summary Patient was very tender to touch. The left ventricle is normal in size. There is mild asymmetric left ventricular hypertrophy. Left ventricular ejection fraction is estimated to be 40 +/- 5%. Left ventricular systolic function has mildly improved compared to the previous exam. The right ventricle grossly appears normal in size with probable normal systolic function. There is a pacemaker lead in the right ventricle. There is moderate right ventricular hypertrophy. There is an anterior echo-free space consistent with a fat pad. There is a trivial pericardial effusion noted. Procedure: A two-dimensional transthoracic echocardiogram with color flow and Doppler was performed in limited views only. The study quality was technically adequate. Comparison is made with the echocardiogram of 02-20-23. The heart rate ranged between 85-91 bpm during the study. Left Ventricle: The left ventricle is normal in size. There is mild asymmetric left ventricular hypertrophy. Left ventricular ejection fraction is estimated to be 40 +/- 5%. Left ventricular systolic function has mildly improved compared to the previous exam. Diastolic function could not be accurately assessed due to unobtainable data. Right Ventricle: The right ventricle grossly appears normal in size with probable normal systolic function. There is a pacemaker lead in the right ventricle. There is moderate right ventricular hypertrophy. Aortic Valve: The aortic valve opens well. There is trace aortic regurgitation. Tricuspid Valve: The tricuspid valve leaflets are thin and pliable. The tricuspid valve leaflets are thickened and/or calcified, but open well. There is trace tricuspid regurgitation. Pulmonic Valve: The pulmonic valve is not well visualized. Pericardium/ Pleura There is an anterior echo-free space consistent with a fat pad. There is a trivial pericardial effusion noted. MMode/2D Measurements & Calculations LVIDd: 4.5 cm LVIDs: 3.7 cm FS: 17.6 % IVSd: 1.4 cm LVPWd: 0.91 cm LV armstrong. diameter/BSA (cm/m^2): 2.9 LV sys. diameter/BSA (cm/m^2): 2.4 Doppler Measurements & Calculations TR max apollo: 212.0 cm/sec TR max P.0 mmHg Reading Physician:12:34 PM
[2023-04-11 10:28] VITALS: BP 136/74; PULSE 78; RESP 16; TEMP 35.8; O2SAT 99
[2023-04-11] MEDS: ACETAMINOPHEN 325 MG TABLET 650 MG PO (10:48)
[2023-04-11] MEDS: OXYCODONE/ACETAMINOPHEN 5/325 TABLET 1 TAB PO ×2 (13:02→20:26)
[2023-04-11] MEDS: LIDOCAINE 5% PATCH 1 EACH TOP (16:00)
--- NOTE | 2023-04-11 16:40 | CM.DPNOTE ---
DCP Note CAD PROGRAMMER reviewed EMR. Per provider, pt will need two wks of Meropenem 1gm Q12. Per provider, pt could dc tomorrow if abx plan arranged. Pt needs PICC, provider arranged to have PICC placed 04.12.23 first thing in morning. Per provider, pt's PCP would be following abx after dc due to HNW starting again after 2 wks abx. CAD PROGRAMMER coordinated with [facility] admissions to inquire about if Medicare coverage restarts. Pt's last admission was 48days ago and therefore does not qualify for new medicare SNF coverage and pt would have to PP for SNF placement/abx. CC Cristina kindly agreed to fax initial referral information to [facility]. Thomas reported that the weekly cost would be $560/week and they have an opening tomorrow at 2:30pm in the home for start of care. Thomas reports they would need the order/PICC report at soon as possible tomorrow, ideally by 0830. CAD PROGRAMMER spoke with intake at [facility] to update them that pt would need to restart services after 2 wks abx, 04.25.23. They were unsure if they could schedule SOC that far in advance and would ask a meter supervisor. Likely, family would need to call closer to date and schedule. However, [facility] would still like a DC summary from us at ct. CAD PROGRAMMER spoke with pt and spouse in room and updated them on home infusion cost. Spouse would rather have home infusion than SNF placement for abx. Spouse concerned about transport home. Report would like van with [facility], CAD PROGRAMMER informed them that is not something that can be scheduled day before need. Pt/spouse report she is in tremendous amount of pain when she sits up. Pt would likely benefit from BLS transport. Spouse reported verbal understanding their may be a cost associated with BLS transport and is agreeable. CAD PROGRAMMER spoke with dtr via phone. CAD PROGRAMMER updated dtr on current dcp. Dtr in agreement. Dtr in agreement with BLS transport. Dtr inquired about HH for wound care between dc and HNW reinstating services. Reports hx of [facility]. CAD PROGRAMMER completed medical necessity transport form. Pt has copy of POLST in red folder. CAD PROGRAMMER spoke with Rufus at Ambulance. Arranged for transport tomorrow at 1330. CAD PROGRAMMER spoke with Joanne at [facility]. Their soonest start of care is a week out but she was going to try and see if they could squeeze her in for wound care needs sooner than that. Asked about how often she would need wound care- this CAD PROGRAMMER did not know and reported the CM team would update them tomorrow. Provider reports pt would need either every other day-twice per week wound care. Plan: dc tomorrow with BLS transport at 1330 with [facility] home with family support and [facility] Caregivers. Home infusion to open in the home at 1430 tomorrow, 04.12.23, need dc summary. HNW to reopen 04.25.23, request DC summary from us. [facility] pending for wound care needs/availability- need to update them on how often, CM team will potentially consider a different HH agency if needed for wound care if there is one with sooner SOC date available? CM team will follow closely. NHAN Goncalves
[2023-04-11 16:41] VITALS: BP 140/62; PULSE 68; RESP 16; TEMP 36.1; O2SAT 95
--- NOTE | 2023-04-11 18:13 | P.PN_ITS ---
Subjective Subjective Interval history: Blood cultures growing MDRO E. coli. Continuing meropenem. SYSTEMS SECURITY CONSULTANT arranging outpatient IV abx for 2 weeks with home infusions. Patient wanted to knock this infection out and go home with PICC. Then to likely resume hospice after 2 weeks. Exam Vital Signs (past 8 hours): - 04/11/23 10:28 04/11/23 16:41 Temperature 96.4 F L 97.0 F L Pulse Rate 78 68 Respiratory Rate 16 16 Blood Pressure 136/74 140/62 Pulse Oximetry 99 95 Oxygen Flow Rate 0 0 Oxygen Delivery Method Room Air Oxygen Flow Rate 0 Const Other: laying in bed, in no distress HENMT Other: normocephalic Eyes Other: eomi Neck Other: supple Resp Other: porr respiratory effort, O2 NC Cardio Other: RRR, PPM, swollen legs GI Other: w/o distension Extrem Other: swollen, 2 + Psych Other: encephalopathic Objective Labs 04/11/23 05:55 04/11/23 05:55 Labs: Laboratory Results - last 24 hr 04/11/23 05:55 WBC 10.8 RBC 3.67 L Hgb 11.1 L Hct 33.6 L MCV 91.4 MCH 30.2 MCHC 33.1 RDW 18.1 H Plt Count 63 L Neut % (Auto) Not Reportable Lymph % (Auto) Not Reportable [place] % (Auto) Not Reportable Eos % (Auto) Not Reportable Baso % (Auto) Not Reportable Lymph # (Auto) Not Reportable [place] # (Auto) Not Reportable Baso # (Auto) Not Reportable Total Counted 100 Seg Neutrophils % 78.0 H Lymphocytes % (Manual) 10.0 L Atypical Lymphs % 3.0 H Monocytes % (Manual) 9.0 Neutrophils # (Manual) 8424 H RBC Morphology Normal morphology Sodium 138 Potassium 3.8 Chloride 104 Carbon Dioxide 29 BUN 53 H Creatinine 1.67 H Estimated GFR 31 L BUN/Creatinine Ratio 31.7 H Glucose 97 Calcium 8.6 PFSH Medical History (Updated 04/10/23 @ 18:48 by Don Flores DO) Chronic hypoxemic respiratory failure Hypothyroidism GERD (gastroesophageal reflux disease) Systolic CHF, chronic Mumps (~1951) Measles (~1951) Chicken pox (~1951) Hearing loss (~2011) History of kidney disease (~2002) Irritable bowel syndrome (~2012) Secondary hyperparathyroidism of renal origin Atypical migraine Chronic diarrhea Primary osteoarthritis involving multiple joints Venous (peripheral) insufficiency Interstitial lung disease Stage 3b chronic kidney disease (CKD) Chronic adrenal insufficiency History of DVT (deep vein thrombosis) Mixed hyperlipidemia Chronic kidney disease Hyperlipidemia Hypertension Bilateral lower extremity edema Chronic anticoagulation Surgical History History of left heart catheterization (LHC) Anesthesia History of back surgery (~2012) History of throat surgery (~1974) Family History Father Cancer History of heart disease Mother Hypertension Social History household members: spouse, children and caregiver Smoking Status: Never smoker alcohol intake: current Assessment & Plan Assessment and plan (1) Gram-negative bacteremia: Status: Acute Plan: -blood cultures 07/05 positive for gram neg bacilli, E. coli MRDO on PCR -continue meropenem 1g q12h until 04/24 to complete 2 weeks -PICC ordered (2) Acute UTI: Problem details: pyelonephritis Status: Acute Plan: - previous UTI with E Coli and Klebsiella - multiple abx allergies - changed ertapenem to meropenem, as per PCP had confusion with ertapenem (3) JENNI (acute kidney injury): Status: Acute Plan: Cr now improving - avoidance of nephrotoxins - monitored BMP (4) Stage 3b chronic kidney disease (CKD): Status: Acute Plan: see above (5) Acute non-ST elevation myocardial infarction (NSTEMI): Status: Acute Plan: family not interested in agressive treatment patient revoked hospice to get treatment of UTI (6) Acute on chronic systolic (congestive) heart failure: Status: Acute (7) Interstitial lung disease: Status: Acute Plan: on oxygen (8) GERD (gastroesophageal reflux disease): Status: Acute (9) Chronic hypoxemic respiratory failure: Status: Acute Plan: ILD, CHF Plan Dispo: [facility] on 04/12. Quality VTE Deep Vein Thrombosis/Pulmonary Embolism Present on Admission: No
[2023-04-11 20:00] VITALS: BP 153/84; PULSE 62; RESP 16; TEMP 36.2; O2SAT 94
[2023-04-11] MEDS: SODIUM CHLORIDE 0.9% FLUSH 10 ML IV (20:02)
[2023-04-11] MEDS: SENNOSIDES 8.6 MG TABLET 17.2 MG PO (20:26)
[2023-04-11] MEDS: ONDANSETRON 4 MG/2 ML INJ IV (20:26)
--- NOTE | 2023-04-12 01:05 | PC.NURSE ---
Addendum entered by Aida Mora R.N. 04/12/23 06:38: Dr. Roy made aware of UOP and bladder scan results via webex; no change in orders. Addendum entered by Aida Mora R.N. 04/12/23 06:36: Patient incontinent x 1 but appeared to be small amount. Only gtts out via external catheter. Bladder scan showing 240cc in bladder. Original Note: Patient is alert but oriented only to self, birthdate, age, place and situation. Breath sounds with crackles in right LL; RA sat is 94%. HRR; has pacemaker and BP elevated at 153/84. Did state she felt nauseated so medicated with zofran prior to night time meds and nausea resolved. BT present and abdomen is soft. Reports she is incontinent of both B&B so currently has external catheter in place to keep periarea dry. Has pressure areas on coccyx buttocks so zinc barrier cream applied and is being repositioned q2h; otherwise on bedrest. Dressings to wounds on bilateral LE are CDI. Bruising scattered over entire body. On contact precautions related to MDRO ecoli in urine. Did complain of bilateral hip pain so was repositioned and medicated with percocet and now states pain has resolved. SCD's are not being used as patient complains of pain when they are on related to wounds. Fall risk score is high and bed alarm is activated.
[2023-04-12 04:00] VITALS: BP 160/70; PULSE 82; RESP 15; TEMP 35.9; O2SAT 94
[2023-04-12] MEDS: LEVOTHYROXINE 100 MCG TABLET PO (05:40)
[2023-04-12] MEDS: PANTOPRAZOLE DR 40 MG TABLET PO (05:41)
[2023-04-12 05:53] LABS: Add Manual Diff / Slide Review NO; Basophils Absolute Auto 100 /uL (0-100); Basophils Percent Auto 0.8 % (0-2); Eosinophils Absolute Auto 0 /uL (0-450); Eosinophils Percent Auto 0.1 % (2-4); Hemoglobin 11.2 g/dL (12.0-16.0); Lymphocytes Absolute Auto 1700 /uL (1100-4500); Lymphocytes Percent Auto 16.8 % (25-40); Mean Corpuscular HGB Conc 32.9 % (30-36); Mean Corpuscular Hemoglobin 30.3 PG (26-34); Monocytes Absolute Auto 500 /uL (0-900); Monocytes Percent Auto 5.4 % (3-14); Neutrophils Absolute Auto 7800 /uL (1500-7000); Neutrophils Percent Auto 76.9 % (50-75); Platelet Count 71 X10^3/uL (150-400); Red Cell Distribution Width 18.2 % (11.6-14.8); White Blood Cell Count 10.1 X10^3/uL (4.5-11.0)
[2023-04-12 06:01] LABS: BUN Creatinine Ratio 32.4 (6-22); Blood Urea Nitrogen 55 mg/dL (7-17); Calcium 8.9 mg/dL (8.4-10.2); Carbon Dioxide 32 mmol/L (22-32); Chloride 105 mmol/L (98-107); Estimated Glomerular Filt Rate 31 mL/min (>60); Glucose 102 mg/dL (80-110); HEMOLYSIS < 15 (0-50); Sodium 139 mmol/L (137-145)
[2023-04-12] MEDS: predniSONE 20 MG TABLET 40 MG PO (08:54)
[2023-04-12] MEDS: CITALOPRAM 10 MG TABLET PO (08:54)
[2023-04-12] MEDS: OXYCODONE/ACETAMINOPHEN 5/325 TABLET 1 TAB PO (08:54)
[2023-04-12] MEDS: AMIODARONE 200 MG TABLET PO (08:54)
[2023-04-12] MEDS: APIXABAN 5 MG TABLET 2.5 MG PO (08:55)
[2023-04-12] MEDS: ONDANSETRON 4 MG/2 ML INJ IV ×2 (09:05→13:28)
[2023-04-12 09:15] VITALS: BP 150/74; PULSE 75; RESP 16; TEMP 36.3; O2SAT 95
--- NOTE | 2023-04-12 09:47 | DI.RAD.S_ITS ---
PROCEDURE: XR CHEST FOR PICC 1V INDICATIONS: IV abx outpatient COMPARISON: [facility], PAULO, XR CHEST 1V, 02/20/2023, 10:29. [facility], PAULO, XR CHEST 1V, 11/14/2022, 9:04. FINDINGS: PICC was placed by the intravenous therapy team from the right side. Fluoroscopic spot film demonstrates the tip of PICC projecting to the area of over the low SVC. IMPRESSION: Tip of PICC projects to the area of low SVC. Dictated by: Kem Catherine M.D. on 04/12/2023 at 14:11 Approved by: Kem Catherine M.D. on 04/12/2023 at 14:11
[2023-04-12] MEDS: MEROPENEM 1 GM in SODIUM CHLORIDE 0.9% 100 ML IV (10:15)
[2023-04-12] MEDS: SODIUM CHLORIDE 0.9% FLUSH 10 ML IV (10:16)
--- NOTE | 2023-04-12 10:44 | CM.DPC ---
DCP Cont. Reviewed EMR and team rounds for status updates. Pt will d/c home today with family assistance via BLS transport. Faxed med order to [facility], will fax PICC note once available. Per family, they have chosen not to have HH at this time, and pt's dtr, Renae, will manage pt's wound care needs until pt returns to hospice services after the 2-week course of IV ABO's. No further DCP needs identified at this time.
--- NOTE | 2023-04-12 13:57 | PC.NURSE ---
Pt discharged home at 1357, escorted off floor in stretcher accompanied by BLS transport. PIV removed but PICC line still present at discharge, discharge teaching completed with daughter, printed prescription for antibiotic given to . Pt left the room with all belongings.
--- NOTE | 2023-04-14 07:11 | PM.DS.1 ---
History of Present Illness History of Present Illness Chief complaint: fever Narrative: From overnight provider: 77 y/o presented to ED with fever, increasingly lethargic, profoundly weak, increasingly confused, showing postural hypotension and evidence of UTI and JENNI. Her recent medical history is significant for heart failure with ejection fraction estimated in the 20-25% range with pacemaker in place, pulmonary fibrosis, urinary tract infection and non STEMI that led to hospitalization and eventually longterm placement. Additional chronic issues include stage 3 kidney disease, reflux, hypothyroidism. She was discharged to SNF with hospice and then from SNF to home. Today she revoked hospice so that she can have treatment of infection with abx. Discharge Providers Provider Date of admission: 04/10/23 01:02 Discharge Date: 04/12/23 Primary care physician: Clara Lawrence MD Discharge provider: Don Flores DO Summary Hospital Course Discharge Diagnosis: (1) Gram-negative bacteremia: Status: Acute Plan: -blood cultures 07/05 positive for gram neg bacilli, E. coli MRDO only sensitive to carbapenems -continue meropenem 1g q12h until 04/24 to complete 2 weeks, patient had confusion previously with ertapenem (2) Acute UTI: Problem details: pyelonephritis Status: Acute Plan: - previous UTI with E Coli and Klebsiella - multiple abx allergies - changed ertapenem to meropenem as above (3) JENNI (acute kidney injury): Status: Acute Plan: Cr now improving - avoidance of nephrotoxins - monitored BMP (4) Stage 3b chronic kidney disease (CKD): Status: Acute Plan: see above (5) Acute non-ST elevation myocardial infarction (NSTEMI): Status: Acute Plan: family not interested in agressive treatment patient revoked hospice to get treatment of UTI (6) Acute on chronic systolic (congestive) heart failure: Status: Acute -repeat echo shows improved EF of 35-40% from 25-30% previously (7) Interstitial lung disease: Status: Acute Plan: on oxygen (8) GERD (gastroesophageal reflux disease): Status: Acute (9) Chronic hypoxemic respiratory failure: Status: Acute Plan: ILD, CHF Hospital Course: Admitted after patient developed pyelo while on hospice and revoked it to return to the hospital for treatment. Found to have MDRO E. coli in blood and urine. Given IV meropenem and improved back to baseline. Family requested echo for prognosis, and it showed improved EF from prior. PICC line placed and home infusion arranged to complete 2 weeks of meropenem. I spoke with the patient that she may very well get these UTI's again and there is no oral agent to treat it so she would need to be hospitalized each time. She understands and will discuss with if returning to the hospital again in the future is warranted. Exam Vital Signs (past 8 hours): Oxygen Delivery Method Room Air Oxygen Flow Rate 0 Const Other: laying in bed, in no distress HENMT Other: normocephalic Eyes Other: eomi Neck Other: supple Resp Other: porr respiratory effort, O2 NC Cardio Other: RRR, PPM, swollen legs GI Other: w/o distension Extrem Other: swollen, 2 + Psych Other: A/Ox3 Objective Labs 04/12/23 05:35 04/12/23 05:35 [facility] Medical History (Updated 04/10/23 @ 18:48 by Don Flores DO) Chronic hypoxemic respiratory failure Hypothyroidism GERD (gastroesophageal reflux disease) Systolic CHF, chronic Mumps (~1951) Measles (~1951) Chicken pox (~1951) Hearing loss (~2011) History of kidney disease (~2002) Irritable bowel syndrome (~2012) Secondary hyperparathyroidism of renal origin Atypical migraine Chronic diarrhea Primary osteoarthritis involving multiple joints Venous (peripheral) insufficiency Interstitial lung disease Stage 3b chronic kidney disease (CKD) Chronic adrenal insufficiency History of DVT (deep vein thrombosis) Mixed hyperlipidemia Chronic kidney disease Hyperlipidemia Hypertension Bilateral lower extremity edema Chronic anticoagulation Surgical History History of left heart catheterization (LHC) Anesthesia History of back surgery (~2012) History of throat surgery (~1974) Family History Father Cancer History of heart disease Mother Hypertension Social History household members: spouse, children and caregiver Smoking Status: Never smoker alcohol intake: current Discharge Plan Discharge Plan Patient Disposition: Home Health Service Provider Discharge Comment: You were found to have a UTI and bloodstream infection from drug-resistant E. coli. This responded well to meropenem so home IV abx arranged for 2 weeks to treat this fully. I've sent lidocaine patches to your pharmacy since you respond well to them. Dr. Flores Discharge orders & Medications Prescriptions: New lidocaine 5 % Adhesive Patch,Medicated 1 patch topical DAILY Qty: 30 0RF Continued pantoprazole 40 mg tablet,delayed release (DR/EC) 40 mg PO BID Qty: 180 3RF Rx Instructions: Dose change from 40 mg qd to 40 mg bid. Please d/c previous script that was sent today. Thanks! Eliquis 2.5 mg tablet 2.5 mg PO BID oxycodone-acetaminophen 5-325 mg tablet 0.5 tab PO Q6HR PRN (Reason: Pain (Scale Score 4-6)) furosemide [Lasix] 20 mg tablet 20 mg PO DAILY PRN (Reason: Shortness Of Breath) citalopram 10 mg tablet 10 mg PO DAILY prednisone 5 mg tablet 15 mg PO DAILY Rx Instructions: pt to take 16mg daily 02/17-02/23 than take 15mg starting 02/24. levothyroxine 100 mcg tablet 100 mcg PO DAILY ondansetron HCl 4 mg tablet 4 mg PO Q4H PRN (Reason: Nausea) nitroglycerin 0.3 mg Tablet, Sublingual 0.3 mg sublingual DAILY MDD 0.3mg PRN (Reason: Chest Pain) amiodarone 200 mg tablet 200 mg PO DAILY polyethylene glycol 3350 17 gram powder in packet 17 gram PO DAILY PRN (Reason: Constipation) Follow up/Referrals: Jamir Garica MD [Physician] - 04/25/23 9:30 am (Appt:04/25 @ 9:[address] Garcia please arrive 15 min prior to your scheduled appointment time) Clara Lawrence MD [Primary Care Provider] - Diet/Activity/Treatments Diet: Regular Visit Report/Discharge Packet Stand Alone Forms: Patient Portal/API, Stroke Signs & Symptoms Discharge Data Primary Care Provider: Clara Lawrence Quality VTE Deep Vein Thrombosis/Pulmonary Embolism Present on Admission: No
== END 2023-04-12 14:00 | disposition home health service (06) | DRG 689 ==
LOC: ED 04-10 00:23 → AC 04-10 01:03
PROVIDERS: Student in an Organized Health Care Education/Training Program; Admitting Provider Internal Medicine; Emergency Provider Emergency Medicine; PCP Internal Medicine; Referring Provider Emergency Medicine; Visit Provider Internal Medicine
DX: N10 Acute pyelonephritis (principal); I21.4 Non-ST elevation (NSTEMI) myocardial infarction; I50.23 Acute on chronic systolic (congestive) heart failure; I13.0 Hypertensive heart and chronic kidney disease with heart failure and stage 1 through stage 4 chronic kidney disease, or unspecified chronic kidney disease; J84.9 Interstitial pulmonary disease, unspecified; J96.10 Chronic respiratory failure, unspecified whether with hypoxia or hypercapnia; N17.9 Acute kidney failure, unspecified; N18.32 Chronic kidney disease, stage 3b; B96.20 Unspecified Escherichia coli [E. coli] as the cause of diseases classified elsewhere; K21.9 Gastro-esophageal reflux disease without esophagitis; Z79.01 Long term (current) use of anticoagulants; Z79.52 Long term (current) use of systemic steroids
CPT/HCPCS: 36415; 36569; 80048; 80053; 83605; 83735; 83880; 84484; 85007; 85025; 87040; 87077; 87154; 87186; 87633; 93005; 93307; 96365; 96366; 96375; 99284; 99285; J1335; J1956; J2185; J2405

== ENCOUNTER → 2023-04-19 12:49 | Outpatient (ROUT) | payer MEDICARE, OTHER, SELFPAY ==
[2023-04-10 02:47] VITALS: BMI 26.4
[2023-04-19 13:06] LABS: Add Manual Diff / Slide Review YES; Hemoglobin 11.5 g/dL (12.0-16.0); Mean Corpuscular HGB Conc 32.1 % (30-36); Mean Corpuscular Hemoglobin 29.3 PG (26-34); Mean Corpuscular Volume 91.4 fL (80-100); Platelet Count 127 X10^3/uL (150-400); Red Blood Cell Count 3.94 X10^6/uL (4.0-5.2); Red Cell Distribution Width 19.1 % (11.6-14.8); White Blood Cell Count 12.8 X10^3/uL (4.5-11.0)
[2023-04-19 13:28] LABS: Neutrophils Absolute Manual 10240 /uL (3000-5900); Total Cells Counted 100
[2023-04-19 13:29] LABS: Anisocytosis 1+
[2023-04-19 13:41] LABS: Alanine Aminotransferase 14 IU/L (<35); Albumin 2.2 g/dL (3.5-5.0); Albumin Globulin Ratio 1.2 (1.0-2.8); Alkaline Phosphatase 89 U/L (38-126); Aspartate Aminotransferase 27 IU/L (14-36); BUN Creatinine Ratio 34.2 (6-22); Bilirubin Total 0.6 mg/dL (0.2-1.3); Blood Urea Nitrogen 41 mg/dL (7-17); Calcium 8.2 mg/dL (8.4-10.2); Carbon Dioxide 28 mmol/L (22-32); Chloride 103 mmol/L (98-107); Estimated Glomerular Filt Rate 46 mL/min (>60); Globulin 1.9 g/dL (1.7-4.1); Glucose 85 mg/dL (80-110); HEMOLYSIS < 15 (0-50); Potassium 4.5 mmol/L (3.4-5.1); Sodium 133 mmol/L (137-145); Total Protein 4.1 g/dL (6.3-8.2)
[2023-04-20 16:07] LABS: NT-proBNP (BNP-Adult 18+) 37900 pg/mL (<450)
[2023-04-20 16:14] LABS: Thyroid Stimulating Hormone 0.753 uIU/mL (0.47-4.68)
[2023-04-20 16:32] LABS: Vitamin B12 669 pg/mL (239-931)
== END ==
PROVIDERS: PCP Internal Medicine; Visit Provider Internal Medicine
DX: N39.0 Urinary tract infection, site not specified (principal)
CPT/HCPCS: 80053; 82607; 83880; 84443; 85007; 85025

== ENCOUNTER → 2023-05-02 17:48 | Outpatient (ROUT) | payer MEDICARE, OTHER, SELFPAY ==
[2023-04-10 02:47] VITALS: BMI 26.4
[2023-05-02 18:01] LABS: Add Manual Diff / Slide Review NO; Basophils Absolute Auto 100 /uL (0-100); Basophils Percent Auto 0.7 % (0-2); Eosinophils Absolute Auto 0 /uL (0-450); Eosinophils Percent Auto 0.1 % (2-4); Hematocrit 36.3 % (36-46); Hemoglobin 11.8 g/dL (12.0-16.0); Lymphocytes Absolute Auto 1400 /uL (1100-4500); Lymphocytes Percent Auto 15.5 % (25-40); Mean Corpuscular HGB Conc 32.5 % (30-36); Mean Corpuscular Volume 92.3 fL (80-100); Monocytes Absolute Auto 300 /uL (0-900); Monocytes Percent Auto 3.2 % (3-14); Neutrophils Absolute Auto 7200 /uL (1500-7000); Neutrophils Percent Auto 80.5 % (50-75); Platelet Count 120 X10^3/uL (150-400); Red Blood Cell Count 3.93 X10^6/uL (4.0-5.2); Red Cell Distribution Width 21.3 % (11.6-14.8)
[2023-05-02 18:09] LABS: Alanine Aminotransferase 18 IU/L (<35); Albumin 2.4 g/dL (3.5-5.0); Albumin Globulin Ratio 1.2 (1.0-2.8); Alkaline Phosphatase 110 U/L (38-126); Aspartate Aminotransferase 27 IU/L (14-36); BUN Creatinine Ratio 24.8 (6-22); Bilirubin Total 0.6 mg/dL (0.2-1.3); Blood Urea Nitrogen 39 mg/dL (7-17); Calcium 8.3 mg/dL (8.4-10.2); Carbon Dioxide 29 mmol/L (22-32); Chloride 103 mmol/L (98-107); Estimated Glomerular Filt Rate 34 mL/min (>60); Glucose 146 mg/dL (80-110); HEMOLYSIS < 15 (0-50); Potassium 4.4 mmol/L (3.4-5.1); Sodium 136 mmol/L (137-145); Total Protein 4.4 g/dL (6.3-8.2)
[2023-05-02 18:35] LABS: Anisocytosis 2+
== END ==
PROVIDERS: PCP Internal Medicine; Visit Provider Internal Medicine
DX: R78.81 Bacteremia (principal); N39.0 Urinary tract infection, site not specified; N18.32 Chronic kidney disease, stage 3b
CPT/HCPCS: 80053; 85025

== ENCOUNTER → 2023-05-10 12:31 | Outpatient (ROUT) | payer MEDICARE, OTHER, SELFPAY ==
[2023-04-10 02:47] VITALS: BMI 26.4
[2023-05-10 12:42] LABS: Appearance Urine UA CLEAR; Bilirubin Urine UA NEGATIVE (NEGATIVE); Color Urine UA YELLOW; Glucose Urine UA NEGATIVE (Negative); Ketones Urine UA NEGATIVE (NEGATIVE); Leukocyte Esterase Urine UA NEGATIVE (NEGATIVE); Nitrite Urine UA NEGATIVE (Negative); Occult Blood Urine UA NEGATIVE (Negative); Protein Urine UA TRACE (Negative); Urobilinogen Urine UA 0.2 E.U./dL (0.2)
[2023-05-10 13:01] LABS: Bacteria Urine Occasional (0-1); RBC Urine 0-1/HPF (0-5/HPF); Squamous Epithelial Cell Urine >30 /HPF (0-5/HPF); Urine Volume 10mL (spun); WBC Urine 0-1/HPF (0-5/HPF)
[2023-05-10 13:02] LABS: Culture Indicated Urine Cult Not Indicated
== END ==
PROVIDERS: PCP Internal Medicine; Visit Provider Internal Medicine
DX: N39.0 Urinary tract infection, site not specified (principal); N18.32 Chronic kidney disease, stage 3b; I13.0 Hypertensive heart and chronic kidney disease with heart failure and stage 1 through stage 4 chronic kidney disease, or unspecified chronic kidney disease
CPT/HCPCS: 81001